=== PATIENT | male | born 1970 | race Caucasian/White ===

== ENCOUNTER 2021-10-03 01:08 | Outpatient (CLI) | payer MEDICAID, SELFPAY ==
--- OUTSIDE RECORDS SUMMARY | 2021-10-03 01:11 | XMS_ITS ---
:1970 Author Care Team Providers Name Role Phone JAM BARBA Primary Care Provider [phone] Allergies Code Code System Name Reaction Severity Status Onset NKDA ? Medications Name Status Start Date Stop Date ? ? Advair Diskus 250 mcg-50 mcg/dose powder for inhalation Complete d 10/11/2010 10/11/2010 one Puff(s): twice daily amoxicillin 500 mg capsule Completed 11/28/200512/08 1 (one) Cap: TID amoxicillin 875 mg-potassium clavulanate 125 mg tablet Completed 04/21/2013 05/01/2013 1 (one) Tablet: two times daily aspirin 325 mg tablet Active 10/01/2021 Not availa ble Take 325 mg every 24 hours by oral route. atorvastatin 40 mg tablet Active 10/01/2021 Not av ailable Take 40 mg by oral route. Auralgan 5.5 %-1.4 % ear drops Completed 02/17/2013 0 02/17/2013 1 application(s): every 2 hours filling affected ear canal as n eeded benzonatate 200 mg capsule Completed 02/17/201304/21 1 Capsule: tid - three times a day prn bumetanide 0.5 mg tablet Active 10/01/2021 Not [place]akot[place] ilable Take 1 mg every 24 hours by oral route. cyclobenzaprine 10 mg tablet Completed ? 12/2020 Take 1 tablet 3 times a day by oral route. erythromycin 5 mg/gram (0.5 %) eye ointment Completed 05/0305/31/2011 1 (one) cm ribbon: 2-3 times daily Flonase 50 mcg/actuation nasal spray,suspension Completed 02/17/2013 04/21/2013 2 (two) Jefferson(s): see comments Guaifenesin AC 10 mg-100 mg/5 mL oral liquid Completed 12/17/2011 5-10 ml Syrup: every 4 to 6 hours as needed for cough ibuprofen 200 mg tablet Completed ? 10/01/20 21 Take 4 tablets every day by oral route as needed. ibuprofen 800 mg tablet Completed ? 09/04/20 21 Take 1 tablet 3 times a day by oral route for 7 days. Klor-Con M20 mEq tablet,extended release Active 021 Not available Take 20 milliequivalents twice a day by oral route. 20 mEq tab lisinopril 20 mg tablet Completed 05/27/2016 10/16/20 16 1 (one) Tablet Tablet: daily Lopressor 50 mg tablet Active 10/01/2021 Not avail able Take 25 mg twice a day by oral route. Nexium 20 mg capsule,delayed release Active 10/01/2021 Not available 1 capsule every day by oral route. prednisone 20 mg tablet Completed 04/15/2011 04/23/20 11 2 Tablet: As directed Prevacid 30 mg capsule,delayed release Completed 8 06/19/2008 1 (one) Capsule DR: DAILY Prilosec 40 mg capsule,delayed release Completed 6 07/02/2006 1 (one) Capsule DR: daily Protonix 40 mg tablet,delayed release Completed 05/25/2006 05/25/2006 1 (one) Tablet DR: daily Tylenol 500 mg tablet Active 10/01/2021 Not availa ble Take 2 tablets every day by oral route as needed. Xopenex HFA 45 mcg/actuation aerosol inhaler Completed 10/200601/04/2007 2 (two) breath: every 4-6 hours as needed Zestril 5 mg tablet Active 10/01/2021 Not availabl e Take 5 mg every 24 hours by oral route. Zetia 10 mg tablet Completed 04/15/2011 04/15/2011 Zithromax TRI-ELPIDIO 500 mg Completed 10/13/2006 006 tablet Zithromax Z-Elpidio 250 mg tablet Completed 10/28/2011 as directed Tablet: daily Notes: ed Rec Updated 09/27/2021 -laf, talked to [facility]-no meds Problems Name Status Onset Date Source ? Mixed Hyperlipidemia Active ? History Hyperlipidemia Active ? History Obesity Active ? History Nicotine Dependence Active ? History Obstructive Sleep Apnea Syndrome Active ? History Impacted Cerumen Active ? History Purulent Otitis Media Active ? History Hypertensive Disorder Active ? History Pharyngitis Active ? History Allergic Rhinitis Active ? History Disorder of Upper Respiratory System Active ? History Disorder of Nail Active ? History Epidermoid Cyst Active ? History Impaired Fasting Glycemia Active ? Histor y Mantoux: Positive Active ? History Sprain of Deltoid Ligament of Ankle Active ? History Superficial Injury of Conjunctiva Active ? History Adult Health Examination Active ? History Ophthalmic Examination and Evaluation Active ? History Screening for Cardiovascular System Disease Active ? History Acute Bronchitis Active ? History Procedure by Method Active ? History Influenza with Respiratory Manifestation Other Active ? History than Pneumonia Finding of Esophagus Active ? History Procedures Date Name Performed by ? 10/01/2021 US, Echocardiogram, Transthoracic, W/ No rth [facility] (Internal) Stress [address] [place] [address] (Work Place) 10/01/2021 Exercise Stress Test [facility] Rad[facility] (Internal) [address] [place] [address] (Work Place) 10/01/2021 Pharmacologic Stress Test Xray [facility] [address] [facility], [place] [address] (Work Place) Results Lab Results Date Name Specimen Result Interpretation Description Value Range Status Address ? 09/30/2021 CBC W/ Auto BLD ? Wbc 8.2 5.0-10.0 Final [place] Diff 10*3/uL 10*3/uL [facility] L ab (Internal) : [address] ? ? BLD ? Rbc 5.33 4.60-6.00 Final [place] 10*6/uL 10*6/uL [facility] (Internal) : [address] ? ? BLD ? Hgb 17.6 14.0-18.0 Final [place] g/dL g/dL [facility] (Internal) : [address] ? ? BLD High Hct 53.2 % 41.0-51.0 Final [place] % [facility] (Internal) : [address] ? ? BLD High Mcv 99.8 fL 80.0-96.0 Final [facility] L [facility] (Internal) : [address] ? ? BLD High Mch 33.0 pg 26.0-32.0 Final [facility] (Internal) : [address] [place] ? ? BLD ? Mchc 33.1 31.0-35.0 Final [place] g/dL g/dL [facility] (Internal) : [address] , [place] ? ? BLD ? Rdw 13.8 % 11.5-14.5 Final [facility] (Internal) : [address] [place] ? ? BLD ? Plt 174 130-450 Final [place] 10*3/uL 10*3/uL [facility] (Internal) : [address] [place] ? ? BLD ? Anc 5.95 ? Final [place] 10*3/uL [facility] (Internal) : [address] [place] ? ? BLD High Nlr 3.91 0.00-3.20 Final [facility] L ab (Internal) : [address] ? ? BLD ? Neutro 72.3 % 40.0-75.0 Final [facility] (Internal) : [address] [place] ? ? BLD Low Lymph 18.4 % 20.0-50.0 Final [facility] (Internal) : [address] [place] ? ? BLD ? [place] 7.6 % 2.0-10.0 Final [facility] (Internal) : [address] [place] ? ? BLD ? Eos 1.0 % 1.0-6.0 % Final [facility] (Internal) : [address] [place] ? ? BLD ? Baso 0.2 % 0.0-1.0 % Final [facility] (Internal) : [address] [place] ? ? BLD ? Ig 0.5 % 0.0-0.9 % Final [facility] (Internal) : [address] 09/30/2021 Cbc BLD ? Wbc 8.2 5.0-10.0 Final Nort h 10*3/uL 10*3/uL [facility] (Internal) : [address] ? ? BLD ? Rbc 5.33 4.60-6.00 Final [place] 10*6/uL 10*6/uL [facility] (Internal) : [address] ? ? BLD ? Hgb 17.6 14.0-18.0 Final [place] g/dL g/dL [facility] (Internal) : [address] ? ? BLD High Hct 53.2 % 41.0-51.0 Final [facility] (Internal) : [address] ? ? BLD High Mcv 99.8 fL 80.0-96.0 Final [place] fL [facility] (Internal) : [address] ? ? BLD High Mch 33.0 pg 26.0-32.0 Final [place] pg [facility] (Internal) : [address] ? ? BLD ? Mchc 33.1 31.0-35.0 Final [place] g/dL g/dL [facility] (Internal) : [address] ? ? BLD ? Rdw 13.8 % 11.5-14.5 Final [facility] (Internal) : [address] ? ? BLD ? Plt 174 130-450 Final [place] 10*3/uL 10*3/uL [facility] (Internal) : [address] ? ? BLD ? Anc 5.95 ? Final [place] 10*3/uL [facility] (Internal) : [address] 09/30/2021 BNP (B-type S High Nt-bnp 174 0-125 Final [place] Natriuretic pg/mL pg/mL Count ry Peptide), Hospita l Lab Prohormone (Inter nal): N-terminal, [address] [place] Immunoassay, Blood 09/30/2021 Magnesium, S Low mg 1.7 1.8-2.4 Final N orth QN, Serum or mg/dL mg/dL Coun [facility] (Internal) : [address] 09/30/2021 BMP, Serum or S High g/r 117 74-106 Final [place] Plasma mg/dL mg/dL [facility] (Internal) : [address] ? ? S ? Bun 12 mg/dL 7-18 Final [place] mg/dL [facility] (Internal) : [address] t ? ? S Low Crea 0.6 0.7-1.3 Final [place] mg/dL mg/dL [facility] (Internal) : [address] t ? ? S ? Ca 9.3 8.5-10.1 Final [place] mg/dL mg/dL [facility] (Internal) : [address] t ? ? S ? Na 139 136-145 Final [place] mmol/L mmol/L [facility] (Internal) : [address] t ? ? S ? K 3.6 3.5-5.1 Final [place] mmol/L mmol/L [facility] (Internal) : [address] t ? ? S Low Cl 93 98-107 Final [place] mmol/l mmol/l [facility] (Internal) : [address] t ? ? S High Tco2 36.7 21.0-32.0 Final [place] mmol/L mmol/L [facility] (Internal) : [address] 09/30/2021 Troponin I, S CRITICAL Trop 124.82 0.00-60.4 Fin al [place] Serum or HIGH pg/mL 0 pg/mL [facility] L [facility] (Internal) : [address] 09/29/2021 Cbc BLD ? Wbc 8.9 5.0-10.0 Final Nort h 10*3/uL 10*3/uL [facility] (Internal) : [address] t ? ? BLD ? Rbc 4.96 4.60-6.00 Final [place] 10*6/uL 10*6/uL [facility] (Internal) : [address] ? ? BLD ? Hgb 16.5 14.0-18.0 Final [place] g/dL g/dL [facility] (Internal) : [address] ? ? BLD ? Hct 50.4 % 41.0-51.0 Final [place] % [facility] (Internal) : [address] t ? ? BLD High Mcv 101.6 fL 80.0-96.0 Final [place] fL [facility] (Internal) : [address] t ? ? BLD High Mch 33.3 pg 26.0-32.0 Final [place] pg [facility] (Internal) : [address] ? ? BLD ? Mchc 32.7 31.0-35.0 Final [place] g/dL g/dL [facility] (Internal) : [address] t ? ? BLD ? Rdw 14.2 % 11.5-14.5 Final [place] % [facility] (Internal) : [address] t ? ? BLD ? Plt 175 130-450 Final [place] 10*3/uL 10*3/uL [facility] (Internal) : [address] ? ? BLD ? Anc 6.70 ? Final [place] 10*3/uL [facility] (Internal) : [address] 09/29/2021 Magnesium, S ? mg 1.8 1.8-2.4 Final N orth QN, Serum or mg/dL mg/dL [facility] (Internal) : [address] 09/29/2021 BNP (B-type S High Nt-bnp 441 0-125 Final [place] Natriuretic pg/mL pg/mL Count ry Peptide), Hospita l Lab Prohormone (Inter nal): N-terminal, [address], [place] Immunoassay, Blood 09/29/2021 BMP, Serum or S ? g/r 104 74-106 Final [place] Plasma mg/dL mg/dL [facility] (Internal) : [address] t ? ? S ? Bun 10 mg/dL 7-18 Final [place] mg/dL [facility] (Internal) : [address] t ? ? S ? Crea 0.7 0.7-1.3 Final [place] mg/dL mg/dL [facility] (Internal) : [address] t ? ? S ? Ca 9.1 8.5-10.1 Final [place] mg/dL mg/dL [facility] (Internal) : [address] t ? ? S ? Na 142 136-145 Final [place] mmol/L mmol/L [facility] (Internal) : [address] t ? ? S Low K 2.9 3.5-5.1 Final [place] mmol/L mmol/L [facility] (Internal) : [address] t ? ? S Low Cl 94 98-107 Final [place] mmol/l mmol/l [facility] (Internal) : [address] t ? ? S CRITICAL Tco2 42.9 21.0-32.0 Final [place] HIGH mmol/L mmol/L [facility] (Internal) : [address] 09/28/2021 Troponin I, S CRITICAL Trop 323.88 0.00-60.4 Fin al [place] Serum or HIGH pg/mL 0 pg/mL [facility] (Internal) : [address] 09/28/2021 Cbc BLD ? Wbc 9.5 5.0-10.0 Final Nort h 10*3/uL 10*3/uL [facility] (Internal) : [address] ? ? BLD ? Rbc 4.76 4.60-6.00 Final [place] 10*6/uL 10*6/uL [facility] (Internal) : [address] ? ? BLD ? Hgb 15.8 14.0-18.0 Final [place] g/dL g/dL [facility] (Internal) : [address] ? ? BLD ? Hct 49.1 % 41.0-51.0 Final [place] % [facility] (Internal) : [address] ? ? BLD High Mcv 103.2 fL 80.0-96.0 Final [place] fL [facility] (Internal) : [address] ? ? BLD High Mch 33.2 pg 26.0-32.0 Final [place] pg [facility] (Internal) : [address] ? ? BLD ? Mchc 32.2 31.0-35.0 Final [place] g/dL g/dL [facility] (Internal) : [address], [place] ? ? BLD ? Rdw 14.4 % 11.5-14.5 Final [place] % [facility] (Internal) : [address] t ? ? BLD ? Plt 163 130-450 Final [place] 10*3/uL 10*3/uL [facility] (Internal) : [address] ? ? BLD ? Anc 7.30 ? Final [place] 10*3/uL [facility] (Internal) : [address] 09/28/2021 BNP (B-type S High Nt-bnp 1245 0-125 Final [place] Natriuretic pg/mL pg/mL Count ry Peptide), Hospita l Lab Prohormone (Inter nal): N-terminal, [address], [place] Immunoassay, Blood 09/28/2021 Magnesium, S Low mg 1.5 1.8-2.4 Final N orth QN, Serum or mg/dL mg/dL [facility] L [facility] (Internal) : [address] 09/28/2021 HbA1C BLD ? Ha1C 5.6 % 4.0-6.0 % Final Nor th (Hemoglobin Count ry a1C), Blood [facility] Lab (Internal) : [address] 09/28/2021 BMP, Serum or S ? g/r 103 74-106 Final [place] Plasma mg/dL mg/dL [facility] (Internal) : [address] t ? ? S ? Bun 10 mg/dL 7-18 Final [place] mg/dL [facility] (Internal) : [address] t ? ? S ? Crea 0.7 0.7-1.3 Final [place] mg/dL mg/dL [facility] (Internal) : [address] t ? ? S ? Ca 8.5 8.5-10.1 Final [place] mg/dL mg/dL [facility] (Internal) : [address] t ? ? S ? Na 144 136-145 Final [place] mmol/L mmol/L [facility] (Internal) : [address] ? ? S Low K 2.8 3.5-5.1 Final [place] mmol/L mmol/L [facility] (Internal) : [address] t ? ? S ? Cl 98 98-107 Final [place] mmol/l mmol/l [facility] L ab (Internal) : [address] t ? ? S High Tco2 39.9 21.0-32.0 Final [place] mmol/L mmol/L [facility] L [facility] (Internal) : [address] 09/28/2021 Lipid Panel, S ? Chol 125 0-200 Final [place] Serum mg/dL mg/dL [facility] (Internal) : [address] t ? ? S ? Trig 87 mg/dL 0-150 Final [place] mg/dL [facility] (Internal) : [address] ? ? S Low Hdl 32 mg/dL 40-60 Final [place] mg/dL [facility] (Internal) : [address] t ? ? S ? Ldl 76 mg/dL 0-130 Final [place] mg/dL [facility] (Internal) : [address] 09/27/2021 Magnesium, S ? mg 1.9 1.8-2.4 Final N orth QN, Serum or mg/dL mg/dL [facility] : [address] [facility]21 Troponin I, S CRITICAL Trop 403.41 0.00-60.4 Fin al [place] Serum or HIGH pg/mL 0 pg/mL [facility] L [facility] (Internal) : [address] 09/27/2021 EKG Done by ? No ? ? ? N orth ED observation Count ry recorded. Hospita l Lab (Internal) : [address] 09/29/2017 Venipuncture BLD ? Venpn* ? ? Final [facility] ab (Internal) : [address] 09/29/2017 CMP, Serum or S High g/r 125 74-106 Final [place] Plasma mg/dL mg/dL [facility] (Internal) : [address] ? ? S ? Bun 11 mg/dL 9-20 Final [place] mg/dL [facility] (Internal) : [address] ? ? S ? Crea 0.80 0.66-1.25 Final [place] mg/dL mg/dL [facility] (Internal) : [address] t ? ? S ? Ca 9.4 8.4-10.2 Final [place] mg/dL mg/dL [facility] (Internal) : [address] t ? ? S ? Na 139 137-145 Final [place] mmol/L mmol/L [facility] (Internal) : [address] t ? ? S ? K 3.6 3.5-5.1 Final [place] mmol/L mmol/L [facility] (Internal) : [address] t ? ? S ? Cl 100 98-107 Final [place] mmol/L mmol/L [facility] (Internal) : [address] t ? ? S ? Tco2 28.0 22.0-30.0 Final [place] mmol/L mmol/L [facility] (Internal) : [address] t ? ? S ? Tp 7.5 g/dL 6.3-8.2 Final [place] g/dL [facility] (Internal) : [address] t ? ? S ? Alb 4.2 g/dL 3.5-5.0 Final [place] g/dL [facility] (Internal) : [address] t ? ? S ? Tbil 0.7 0.2-1.3 Final [place] mg/dL mg/dL [facility] (Internal) : [address] t ? ? S ? Alp 102 U/L 50-136 Final [place] U/L [facility] (Internal) : [address] t ? ? S ? Alt (Sgpt) 43 U/L 21-72 U/L Final No rth [facility] (Internal) : [address] t ? ? S ? Ast (Sgot) 29 U/L 17-59 U/L Final No rth [facility] (Internal) : [address] t 09/29/2017 CBC W/ Auto BLD High Wbc 11.8 5.0-10.0 Final [place] Diff 10*3/uL 10*3/uL [facility] (Internal) : [address] ? ? BLD ? Rbc 5.06 4.60-6.00 Final [place] 10*6/uL 10*6/uL [facility] (Internal) : [address] ? ? BLD ? Hgb 15.3 14.0-18.0 Final [place] g/dL g/dL [facility] (Internal) : [address] ? ? BLD ? Hct 46.8 % 41.0-51.0 Final [facility] L ab (Internal) : [address] ? ? BLD ? Mcv 92.5 fL 80.0-96.0 Final [facility] ab (Internal) : [address] ? ? BLD ? Mch 30.2 pg 26.0-32.0 Final [facility] (Internal) : [address] ? ? BLD ? Mchc 32.7 31.0-35.0 Final [place] g/dL g/dL [facility] (Internal) : [address] ? ? BLD ? Rdw 11.8 % 11.5-14.5 Final [facility] (Internal) : [address] ? ? BLD ? Plt 331 130-450 Final [place] 10*3/uL 10*3/uL [facility] (Internal) : [address] ? ? BLD ? Anc 8.92 ? Final [place] 10*3/uL [facility] (Internal) : [address] ? ? BLD High Neutro 75.7 % 40.0-75.0 Final [facility] (Internal) : [address] ? ? BLD Low Lymph 15.5 % 20.0-50.0 Final [facility] L [facility] (Internal) : [address] ? ? BLD ? [place] 7.2 % 2.0-10.0 Final [facility] L ab (Internal) : [address] ? ? BLD Low Eos 0.9 % 1.0-6.0 % Final [facility] (Internal) : [address], [place] ? ? BLD ? Baso 0.3 % 0.0-1.0 % Final [facility] (Internal) : [address] ? ? BLD ? Ig 0.4 % 0.0-0.9 % Final [facility] (Internal) : [address] 09/29/2017 Uric Acid, S ? Urca 6.7 3.5-8.5 Final N orth Serum or mg/dL mg/dL [facility] ab (Internal) : [address] Past Encounters 09/27/2021 Hypoxia; Finding Related to Health Insur ance Issues Mona Ann, GALLEY BOY: [address] [place] [phone], Ph. 09/04/2021 Obesity; Paresthesia of Upper Limb; Pare sthesia of Lower Extremity; Essential Hypertension; Constipation Jam Barba, DO: [address] [place] [phone], Ph. Social History Tobacco Smoking Status Heavy Tobacco Smoker (1/2 pack per Notes: or less day) Vaccine List Vaccine Type influenza, seasonal, injectable 11/02/2015 influenza, seasonal, injectable, preserv ative free 10/11/2010?0.5 mL 08/15/2011?0.5 mL 09/30/2012?0.5 mL 09/01/2013?0.5 mL Tdap 10/11/2010?0.5 mL Notes: had #2 COVID vaccines in Nov. Plan of Care Reminders Provider Appointments None ? ? recorded. Lab None ? ? recorded. Referral None ? ? recorded. Procedures None ? ? recorded. Surgeries None ? ? recorded. Imaging None ? ? recorded. Vitals 09/27/2021 10:40AM Follow Up 20 Weight Blood Pressure 176.9 kg 150/96 mm[Hg] 09/04/2021 01:40PM Acute 20 Weight Blood Pressure 169.19 kg 172/108 mm[Hg] 11/06/2016 Weight Blood Pressure 157 kg 128/76 mm[Hg] 10/16/2016 Weight Blood Pressure 154.67 kg 122/82 mm[Hg] 07/03/2016 Height Weight Blood Pressure 180.34 cm 153.31 kg 130/86 mm[Hg] 04/17/2016 Weight Blood Pressure 157.4 kg 144/102 mm[Hg] 05/03/2015 Height Weight Blood Pressure 180.34 cm 151.5 kg 128/86 mm[Hg] 05/31/2014 Height Weight Blood Pressure 180.34 cm 162.16 kg 126/86 mm[Hg] 04/21/2013 Blood Pressure 128/82 mm[Hg] 02/17/2013 Weight Blood Pressure 157.85 kg 128/82 mm[Hg] 02/04/2013 Weight Blood Pressure 156.04 kg 142/84 mm[Hg] 11/18/2012 Weight Blood Pressure 159.66 kg 140/80 mm[Hg] 03/30/2012 Weight Blood Pressure 150.59 kg 120/70 mm[Hg] 10/28/2011 Weight Blood Pressure 156.04 kg 120/70 mm[Hg] 04/15/2011 Height Weight Blood Pressure 180.34 cm 147.42 kg 120/60 mm[Hg] 10/21/2010 Height Weight Blood Pressure 182.88 cm 157.85 kg 122/70 mm[Hg] 10/11/2010 Height Weight Blood Pressure 182.88 cm 158.3 kg 120/80 mm[Hg] 02/15/2009 Weight Blood Pressure 140.16 kg 116/70 mm[Hg] 02/08/2009 Weight Blood Pressure 140.61 kg 124/76 mm[Hg] 02/01/2009 Weight Blood Pressure 137.44 kg 124/70 mm[Hg] 12/11/2008 Weight Blood Pressure 138.35 kg 134/82 mm[Hg] 06/19/2008 Weight Blood Pressure 129.27 kg 140/84 mm[Hg] 05/31/2007 Weight Blood Pressure 128.82 kg 120/98 mm[Hg] 01/04/2007 Weight Blood Pressure 131.54 kg 108/80 mm[Hg] 11/10/2006 Height Weight Blood Pressure 182.88 cm 134.26 kg 112/80 mm[Hg] 10/13/2006 Weight Blood Pressure 134.72 kg 124/64 mm[Hg] 08/27/2006 Weight Blood Pressure 136.98 kg 118/76 mm[Hg] 07/27/2006 Height Weight Blood Pressure 182.88 cm 136.53 kg 130/84 mm[Hg] 07/02/2006 Weight Blood Pressure 90.49 kg 124/86 mm[Hg] 04/30/2006 Weight Blood Pressure 136.08 kg 130/90 mm[Hg] 04/07/2006 Weight Blood Pressure 136.08 kg 126/80 mm[Hg] 11/28/2005 Weight Blood Pressure 134.26 kg 110/64 mm[Hg] 10/30/2005 Weight Blood Pressure 132.9 kg 122/88 mm[Hg] 07/01/2005 Height Weight Blood Pressure 182.88 cm 130.63 kg 124/80 mm[Hg]
--- OUTSIDE RECORDS SUMMARY | 2021-10-03 01:11 | XMS_ITS | Encounter Summary ---
:1970 Author Care Team Providers Name Role Phone Cedric Robi GRIFFIN Primary Care Provider [phone] Reason for Visit 51 yr. old male here for evaluation of U RI symptoms. COVID negative 09/23 & 09/24/21 Assessment and Plan 1. Hypoxia pt with lowest oxygen of 67% o n room, increased to 92% on 3 L NC, will be transported to [facility] ED by female urban and regional planner, Cathryn, spoke with her and she agrees to drive the vehicle, pt refuses amb ulance transport likely related to cost as pt has no insurance. Simi Ramirez LPN called report to [facility] ED. 2. Finding related to health ins urance issues no insurance Discussion Note: None recorded.Patient educational handouts: No information available. Plan of Care Reminders Provider Appointments Follow up 20 Ro thien Rosenbaum, 10/15/2021 DO 2:40PM ? NUTR Initial Anshu Mireles, RD [address] 10/16/2021 2:00PM Lab None ? ? recorded. Referral None ? ? recorded. Procedures None ? ? recorded. Surgeries None ? ? recorded. Imaging None ? ? recorded. Medications Name Start Date ? ? aspirin 325 mg tablet 10/01/2021 Take 325 mg every 24 hours by oral route. atorvastatin 40 mg tablet 10/01/2021 Take 40 mg by oral route. bumetanide 0.5 mg tablet 10/01/2021 Take 1 mg every 24 hours by oral route. Klor-Con M20 mEq tablet,extended release 10/01/2021 Take 20 milliequivalents twice a day by oral route. 20 mEq tab Lopressor 50 mg tablet 10/01/2021 Take 25 mg twice a day by oral route. Nexium 20 mg capsule,delayed release 10/01/2021 1 capsule every day by oral route. Tylenol 500 mg tablet 10/01/2021 Take 2 tablets every day by oral route as needed. Zestril 5 mg tablet 10/01/2021 Take 5 mg every 24 hours by oral route. Notes: ed Rec Updated 09/27/2021 -laf, talked to [facility]-no meds Medications Administered None recorded. Vitals Weight Blood Pressure 389 lbs 16 oz 150/96 mm[Hg] Results Lab Results None recorded. Allergies Code Code System Name Reaction Severity Onset NKDA ? ? ? Problems Name Status Onset Date Source ? [...] Finding of Esophagus Active ? History Procedures None recorded. Vaccine List Vaccine Type influenza, seasonal, injectable 11/02/2015 influenza, seasonal, injectable, preserv ative free 10/11/2010?0.5 mL 08/15/2011?0.5 mL 09/30/2012?0.5 mL 09/01/2013?0.5 mL Tdap 10/11/2010?0.5 mL Notes: had #2 COVID vaccines in Nov. Social History Tobacco Smoking Status Heavy Tobacco Smoker (1/2 Notes: or less pack per day) Have you been exposed to N chemicals or toxins? Do you have difficulty walking N or climbing stairs? Are you able to walk? YESWOREST Are you able to care for Y yourself? What is your code status? 0 Have you been exposed to heavy N metals? How much tobacco do you chew? none What is your level of alcohol Heavy Notes: 5th of rum a day consumption? Did the fall result in an N injury? Do you have any pets? Y Are you deaf or do you have N serious difficulty hearing? Are you passively exposed to Y smoke? Do you or have you ever used N any other forms of tobacco or nicotine? Are there any guns present in Y your home? Do you have difficulty dressing N or bathing? Any signs of neglect or abuse? no signs of neglect or abuse noted Has tobacco cessation Notes: pt does not want counseling been provided? information to quit smoking Are you blind or do you have N difficulty seeing? Have you used IV drugs? N Do you have transportation Y difficulties? Do you have smoke and carbon Y monoxide detectors in your home? Do you have difficulty doing N errands alone? What was the date of your most 09/27/2021 recent tobacco screening? Do you use sunscreen routinely? N Do you have an advanced N directive? Do you feel safe at home? Y Do you use any illicit or N Notes: saad antonio recreational drugs? Have there been any changes to N your family or social situation? Which of your hands is Right dominant? Do you use insect repellent N routinely? Do you have difficulty N concentrating, remembering or making decisions? Are there any smokers in your Y house? Have you fallen in the last 3 N months? Functional Status No Impairment. Past Encounters 09/27/2021 Hypoxia; Finding Related to Health Insur ance Issues Mona Ann, [facility] IN CHARGE: [address] [place] [address], Ph. 09/04/2021 Obesity; Paresthesia of Upper Limb; Pare sthesia of Lower Extremity; Essential Hypertension; Constipation Cedric Rosenbaum, DO: [address] [facility], [place] [address], Ph. History of Present Illness ? Upper Respiratory Symptoms Reported By: Patient Upper Respiratory Symptoms: Context: no foreign travel , smoker. Modifying Factors: OTC medication. Associated S ymptoms: no vomiting, no nausea Notes: <div>Pt with cough & SOB x 5 days, no fever, reports brain fog & hazy vision,ta king Cindyil</div><div>
</div>< div>does smoke cigarettes, no hx of COPD, asthma, HTN or h eart failure but has not been in care for several years, r ecently re-established 3 weeks ago.</div><div>
</d iv><div>ROS denies fevers, chest pain, headache, dizzin ess, numbness, weakness; reports cough, SOB, LE edema</div><div>
</div ><div>17 lb weight gain in 3 weeks</div><div>
</div ><div>tested COVID negative at [facility] on 09/23 & by PCR</div><div>
</div><div >nurse notes: Pt. developed a cough, productive of yellow sputum on 09/23/21. He initially had a sore throat, though no longer. He has a loose cough with audible whe ezing at rest & with activity. Chest feels tight. O2 sat. is ranging 78-88% on room air. He has had a heada angélica. Afebrile. Ribs hurt from coughing, though denies body aches. Upper left eyelid is swollen. Eyes tearing, but n o yellow/white drainage. He also states he has a visual fog upon getting up the last 2 mornings for < 30 min.</di v> Review of Systems: ROS as noted in the HPI Review of Systems None recorded. Physical Exam ? Brief PE Reported By: Patient General: General Appearance: healthy- appearing, well-nourished, well-developed. Level of Dis tress: NAD Cardiovascular: Heart Auscultation: RRR, nor mal S1, normal S2, no murmurs, no rubs, no gallops. Pulses: normal t hroughout. Extremities: edema Lungs: Auscultation: no wheezing; n ot coughing, speaking in complete sentences, LLL with crackles & rales, RLL with decreased breath sounds Skin: Inspection and palpation: wa rm and dry, no lesions, good turgor Psychiatric: Affect appropriate; calm, co operative
--- OUTSIDE RECORDS SUMMARY | 2021-10-03 01:11 | XMS_ITS | Encounter Summary ---
:1970 Author Care Team Providers Name Role Phone Cedric Robi GRIFFIN Primary Care Provider [phone] Reason for Visit Obesity; blood pressure; constipation Assessment and Plan 1. Obesity Patient is extremely overweigh t. He states he only eats 1 meal a day but then admits to having 6-7 alcoholic beve rages a day. This is a source of his caloric intake. Also the source of his obesity. 2. Paresthesia of upper limb Paresthesias of the upper limb are most likely due to his alcohol consumption. I do not think there is any need for further testing at this point. He needs to curtail his alcohol intake in f act I would say he needs to stop them immediately 3. Paresthesia of lower extremit y Same as above. Most likely his paresthesias are due to chronic alcoholism. 4. Essential hypertension Elevated blood pressures due t o his obesity. He should obtain a blood pressure cuff and check it at home to be sure as on recheck today it was actually within normal limits albeit on the upper end of normal limits 5. Constipation Patient with a question of con stipation. He has diarrhea and then very firm stool. I believe is most likely constipa oliver and his diarrhea is liquid coming around this firm stool. I suggest MiraLAX or mi lk of mag [id number]. Should try this at a relatively low dose and gingerly bu t then advance it as tolerated. If this does not relieve the situation within 2 to 3 weeks he should return. He certainly return sooner if needed. Discussion Note: None recorded.Patient educational handouts: No [...] oral route. Notes: ed Rec Updated 09/27/2021 -[facility], talked to [facility]-no meds Medications Administered None recorded. Vitals Weight Blood Pressure 372 lbs 16 oz 172/108 mm[Hg] Results Lab Results None recorded. Allergies [...] How much tobacco do you chew? none Did the fall result in an N injury? What is your level of alcohol Heavy Notes: 5th of rum a day consumption? Do you have any pets? Y Are [...] counseling been provided? information to quit smoking Have you used IV drugs? N Are you blind or do you have N difficulty seeing? Do you have smoke and carbon Y monoxide detectors in your home? Do you have transportation Y difficulties? Do you have difficulty doing N errands alone? Do you use sunscreen routinely? N What was the date of your most 09/27/2021 recent tobacco screening? Do you have an advanced N directive? [...] months? Functional Status No Impairment. Past Encounters 09/04/2021 Obesity; Paresthesia of Upper Limb; Pare sthesia of Lower Extremity; Essential Hypertension; Constipation Cedric Rosenbaum, DO: [address] [facility], [place] [address], Ph. History of Present Illness ? Constipation Reported By: Patient HPI: Quality: worsening, hard, sm all amount. Duration: present 1-4 years. Context no recent opiates, n o recent surgery, normal toileting ability, no history of IBS. Associate d Symptoms: cramping ? Hypertension F/U Reported By: Patient HPI: Medications: not taking medi cations as directed. Lifestyle: not exercising regularly, high s alt intake, noncompliant with low salt diet. Associated Symptoms: no dizz iness, no chest pain, no palpitations, no headache, shortness of breat h ? Overweight/Obese Reported By: Patient HPI: Duration: years. Context: e xcessive caloric intake, hx of tobacco smoking, heavy alcohol consu mption. Associated Symptoms: no headache, constipation Notes: <div>373 pounds in office he re today.</div> Review of Systems: ROS as noted in the HPI Review of Systems None recorded. Physical Exam ? Comprehensive PE (male) Reported By: Patient Constitutional: General Appearance: healthy- appearing, well-developed, morbidly obese. Level of Distress: no apparent distress. Ambulation: ambulating normally Respiratory: Respiratory effort: unlabore d respirations, no use of accessory muscles. RUL Auscultation: b reath sounds normal, good air movement, clear to auscultation except as noted, no wheezing, no rales/crackles, no rhonchi. RLL Auscultation: breath sounds normal, good air movement, clear to auscultation except as noted, no wheezing, no rales/crackles, no rhonchi. DAVIDSON Auscultation: breath sounds normal, good air move ment, clear to auscultation except as noted, no wheezing, no rales /crackles, no rhonchi. LLL Auscultation: breath sounds normal, good a ir movement, clear to auscultation except as noted, no wheezing, no ra les/crackles, no rhonchi Cardiovascular: Apical Impulse: not displace d. Heart Auscultation: regular rate and rhythm (RRR), normal S1, nor mal S2, no murmurs, no rubs, no gallops. Neck vessels: no carotid bru its. Pulses including femoral / pedal: normal throughout Neurologic: Orientation: oriented to per son, place, time and situation. Memory: recent memory normal, remote memory normal. Sensation: abnormal; Decreased sensation of bilat eral hands and feet. He still has feeling that there is a dull ness to it according to him Psychiatric: Insight: good insight, good judgment. Mental Status: normal mood, normal affect
--- NOTE | 2021-10-03 12:00 | DI.NM_ITS ---
APPROVED REPORT Exam: Pharmacologic paired w/ low level exercise Patient Location: Out-Patient Room/Bed: Stress Nurse: Lois Marinelli RN Ordering Provider:RORY NEGRO MD Contact Number: BMI: 50.48 Baseline Rhythm: Sinus Rhythm Indications: CHEST PAIN. Medical History Medical History: HTN, Recent VA, Tobacco abuse, Obesity Cardiac Medications: Aspirin, Atorvastatin, Bumetainide, Klor Con, Lopressor, Nexium, Lisinopril Allergies: No known drug allergies Cardiac Risk Factors: HTN, Smoking (35 year hx), , FHX of CAD, CVD, Obesity Previous Cardiac Procedures: None Pretest Chest Pain Characteristics: No chest pain Exercise History: Sedentary Physical Disabilities: Legs Lung Sounds: Clear to auscultation Heart Sounds: Regular Stress Test Details Test: Pharmacologic stress was paired with low level exercise. Reason for pharmacologic stress test: physical limitation. Nuclear Acquisition: Rest Tc-99m/Stress Tc-99m 1 day Rest Isotope: Tc-99m Sestamibi. Dose: 12.0 Date: 10/03/2021 Injection Time: 1210 Stress Isotope: Tc-99m Sestamibi. Dose: 38.0 Date: 10/03/2021 Injection Time: 1407 HR Resting HR Supine: 77 bpm Max Heart Rate (APMHR): 171.201227 bpm Resting HR Standin bpm Target HR (85% APMHR): 145.731845 bpm Max HR Achieved: 105 bpm % of APMHR: 61.40 Recovery HR: 85 bpm BP Resting BP Supine: 120/88 mmHg Resting BP Standin/78 mmHg Max BP: 152/82 mmHg Recovery BP: 142/78 mmHg ECG Resting ECG: Sinus Rhythm Stress ECG: Sinus Tachycardia ST Change: No significant ST segment changes noted Arrhythmia: None Recovery ECG: Sinus Rhythm Recovery ST Change: No significant ST segment changes noted Recovery Arrhythmia: None Clinical Stress Symptoms: Dyspnea Rate Pressure Product: [id number] Stress ECG Conclusion 1. The resting electrocardiogram was within normal limits 2. The patient underwent pharmacologic stress with regadenoson 3. Peak heart rate achieved was 61% of predicted for age 4. Electrocardiographically the test was nondiagnostic due to inadequate heart rate 5. There were no significant dysrhythmias Stress Test Summary STAGE HR BP Symptoms NOTES Supine 77 120/88 1 min post Lexiscan injection 103 128/90 SpO2 87% mild SOB 3 min post Lexiscan injection 91 152/82 SpO2 91% mild SOB 6 min post Lexiscan injection 85 142/78 SpO2 94% Standing 86 122/78 Lexiscan injection paired w/ low level exercise. Patient ambulated at 1.5 mph/0% grade. Patient repor oliver mild SOB with lexiscan injection which resolved within minutes. MPI Conclusion Normal myocardial perfusion. No evidence of ischemia or prior infarction. EF is 55% Radiologist Interpretation Radiologist Interpretation by: Cedric Ward MD Interpretation Date/Time: 10/04/2021 13:14:07
[2021-10-03] MEDS: Regadenoson 0.4 MG/5 ML SYR IVP (13:49)
== END 2021-10-03 01:28 ==
PROVIDERS: Visit Provider Internal Medicine Interventional Cardiology
DX: R07.9 Chest pain, unspecified (principal); I10 Essential (primary) hypertension; R94.39 Abnormal result of other cardiovascular function study; Z87.891 Personal history of nicotine dependence; Z82.49 Family history of ischemic heart disease and other diseases of the circulatory system; I25.10 Atherosclerotic heart disease of native coronary artery without angina pectoris; E66.9 Obesity, unspecified; Z68.43 Body mass index [BMI] 50.0-59.9, adult
CPT/HCPCS: 78452; 93017; J2785

== ENCOUNTER → 2023-07-09 02:54 | Outpatient (CLI) | payer MEDICAID, SELFPAY ==
--- NOTE | 2023-07-09 08:15 | DI.RAD_ITS ---
Exam(s) XR ANKLE LT COMPLETE EXAM: XR ANKLE LT COMPLETE CLINICAL HISTORY: Pain in left ankle,m25.572. TECHNIQUE: 2D digital imaging was performed. COMPARISON: No exams were available for comparison FINDINGS: 3 views No evidence of acute fracture nor widening of the ankle mortise. Talar dome unremarkable. No osseou s lesions nor erosions. No radiopaque foreign body. No obvious degenerative changes. Bone density normal. Os trigonum noted. IMPRESSION: As above. DATA REPOSITORY: RADIATION DOSE DELIVERED:
--- NOTE | 2023-07-09 08:15 | DI.RAD_ITS ---
Exam(s) XR ANKLE RT COMPLETE EXAM: XR ANKLE RT COMPLETE CLINICAL HISTORY: Right ankle pain,m25.571. TECHNIQUE: 2D digital imaging was performed. COMPARISON: CR XR ANKLE LT COMPLETE from 07/09/2023 FINDINGS: 3 views No evidence of acute fracture or widening of the ankle mortise. Mild lucency in the mid aspect talar dome noted which may be degenerative subarticular cysts. Otherwise tibiotalar joint appears unremar kable as does the subtalar joint. There is no osseous tarsal coalition. Enthesophyte noted at the A chilles insertion on the posterior calcaneus IMPRESSION: Subtle talar dome findings as above. DATA REPOSITORY: RADIATION DOSE DELIVERED:
--- NOTE | 2023-07-09 08:15 | DI.RAD_ITS ---
Exam(s) XR FOOT RT COMPLETE EXAM: XR FOOT RT COMPLETE CLINICAL HISTORY: pain,posterior tibial tendon dysfunction,m76.821. TECHNIQUE: 2D digital imaging was performed. COMPARISON: CR XR FOOT LT COMPLETE from 07/09/2023 FINDINGS: 3 views No evidence of fracture or diastasis of Lisfranc joint. Bipartite medial sesamoid bone noted subjace nt to the great toe metatarsal head. Other bones of the foot appear unremarkable. No pes planus. Moderate degenerative changes in the great toe metatarsophalangeal joint IMPRESSION: Moderate degenerative changes at the great toe metatarsophalangeal joint. DATA REPOSITORY: RADIATION DOSE DELIVERED:
--- NOTE | 2023-07-09 08:15 | DI.RAD_ITS ---
Exam(s) XR FOOT LT COMPLETE EXAM: XR FOOT LT COMPLETE CLINICAL HISTORY: pain,posterior tibial tendon dysfunction,m76.822. TECHNIQUE: 2D digital imaging was performed. COMPARISON: No exams were available for comparison FINDINGS: 3 views No evidence of acute fracture nor diastasis of the Lisfranc joint. There are moderate degenerative c hanges in the metatarsophalangeal joint of the great toe No osseous lesions nor erosions evident. No pes planus. Tiny inferior calcaneal spur noted. IMPRESSION: Moderate degenerative changes evident in the great toe MTP joint DATA REPOSITORY: RADIATION DOSE DELIVERED:
== END ==
PROVIDERS: PCP Neuromusculoskeletal Medicine & OMM; Visit Provider Podiatrist
DX: M19.072 Primary osteoarthritis, left ankle and foot; M19.071 Primary osteoarthritis, right ankle and foot
CPT/HCPCS: 73610; 73630

== ENCOUNTER 2024-04-26 11:06 | Emergency (ER) | payer MEDICAID, SELFPAY ==
[2024-04-26] VITALS (36 sets, daily range): BP systolic 86–143; BP diastolic 51–82; PULSE 88–111; RESP 16–18; TEMP 36.2; O2SAT 87–100
[2024-04-26 12:31] LABS: Lactate 0.8 mmol/L (0.6-1.4)
[2024-04-26 12:32] LABS: Abs Immature Grans 0.05 10^3/uL (0.0-0.06); Absolute Basophil Count 0.01 10^3/uL (0.0-0.2); Absolute Eosinophil Count 0.07 10^3/uL (0.0-0.7); Absolute Lymphocyte Count 0.39 10^3/uL (1.2-3.4); Absolute Monocyte Count 0.03 10^3/uL (0.1-0.8); Absolute Neutrophil Count 6.67 10^3/uL (1.2-6.7); Basophils % 0.1 %; HCT 37.2 % (40.0-50.0); Immature Grans % 0.7 %; Lymphocytes % 5.4 %; MCH 28.7 pg (27.0-33.0); MCHC 32.3 % (32.0-36.0); MCV 89 fL (80-95); MPV 8.8 fL (8.0-11.0); Monocytes % 0.4 %; Neutrophils % 92.4 %; Platelet Count 201 10^3/uL (130-400); RBC 4.18 10^6/uL (4.36-5.78); RDW 12.5 % (11.8-14.1); RDW-SD 41.1 fL; WBC 7.22 10^3/uL (4.4-10.8)
[2024-04-26 12:47] LABS: Diff Comment Agrees w/ Instrument; RBC Morphology Normal
[2024-04-26] MEDS: Metoclopramide 10 MG/2 ML VIAL IVP (12:49)
[2024-04-26] MEDS: Normal Saline 1,000 ML 1000 ML IV (12:49)
[2024-04-26 12:50] LABS: ALT 26 U/L (16-63); AST 22 U/L (15-37); Albumin 2.8 g/dL (3.4-5.0); Alkaline Phosphatase 138 U/L (46-116); Anion Gap 7.2 mmol/L (3-11); BUN 10 mg/dL (7-18); CO2 30.8 mmol/L (21.0-32.0); CREATININE 0.7 mg/dL (0.70-1.30); Calcium 9.2 mg/dL (8.5-10.1); Chloride 98 mmol/L (98-107); Estimated GFR 110.87 (mL/min/1.73m2); Glucose 100 mg/dL (74-106); Lipase 100 U/L (16-77); Magnesium 1.8 mg/dL (1.8-2.4); Potassium 3.9 mmol/L (3.5-5.1); Sodium 136 mmol/L (136-145); Total Protein 7.3 g/dL (6.4-8.2)
[2024-04-26] MEDS: Normal Saline 50 ML (12:51)
--- NOTE | 2024-04-26 13:39 | ED.GENADUL_ITS ---
Discharge Plan Disposition Patient Disposition: Transfer-Acute Inpatient Care Specific Acute Inpt Facility: [facility] Condition: Stable Discharge Details Chief Complaint: Abd Prob Clinical Impression: Pancreatic cancer, Rash, Abdominal pain Primary Care Provider: Cedric Rosenbaum ED Provider: New Jaime Home Meds and New Rx's Prescriptions: No Action magnesium oxide 400 mg magnesium capsule 400 mg PO BID Hold Instructions: Changed by Provider famotidine 20 mg tablet 20 mg PO BID Hold Instructions: Changed by Provider esomeprazole magnesium 40 mg capsule,delayed release(DR/EC) 40 mg PO BID Hold Instructions: Changed by Provider carvedilol 3.125 mg tablet 3.125 mg PO BID Rx Instructions: must administer with a meal/food aspirin [Adult Low Dose Aspirin] 81 mg tablet,delayed release (DR/EC) 81 mg PO DAILY Hold Instructions: Pt Stopped/Never Started atorvastatin 40 mg tablet 40 mg PO DAILY Hold Instructions: Changed by Provider acetaminophen 500 mg tablet 500 mg PO QID PRN potassium chloride 20 mEq tablet extended release 40 meq PO BID meloxicam 7.5 mg tablet See Rx Instructions PO DAILY Hold Instructions: Changed by Provider Rx Instructions: dose unverified; orally daily; torsemide 20 mg tablet 20 mg PO DAILY Hold Instructions: Changed by Provider aspirin [Adult Low Dose Aspirin] 81 mg tablet,delayed release (DR/EC) 81 mg PO DAILY Hold Instructions: Pt Stopped/Never Started bumetanide 1 mg tablet 1 mg PO DAILY Hold Instructions: Changed by Provider colchicine 0.6 mg tablet 0.6 mg PO DAILY gabapentin 400 mg capsule 400 mg PO TID Hold Instructions: Changed by Provider naproxen 500 mg tablet 500 mg PO BID Hold Instructions: Changed by Provider pantoprazole 40 mg tablet,delayed release (DR/EC) 40 mg PO ONCE Patient Comments: TAKE ONE TABLET BY MOUTH EVERY DAY docusate sodium 100 mg capsule PO Patient Comments: TAKE ONE CAPSULE BY MOUTH TWICE A DAY NEEDED FOR CONSTIPATION ondansetron 4 mg tablet,disintegrating 4 mg PO PRN Patient Comments: DISSOLVE ONE TABLET ON THE TONGUE EVERY 8 HOURS NEEDED FOR NAUSEA HPI General Date/Time Provider Initiated Documentation: 04/26/24 11:40 . Limitations to Documentation: no limitations . Information obtained by: patient . HPI Narrative: 54-year-old gentleman with past medical history of pancreatic cancer on chemotherapy presents for evaluation of abdominal fullness, bloating and pain. He reports that his last dose of chemotherapy was Fernandez, 4 days ago, reports that over the weekend he developed a rash across his chest wall. They thought this was secondary to the chemotherapy and has been taking Benadryl without significant improvement. He reports abdominal fullness that has worsened over the last 2 days. Associated with decreased appetite, decreased urine output. Last bowel movement was yesterday after taking milk of magnesia. He reports a watery bowel movement. Has not had 1 today. Has not had any nausea or vomiting. Related Data Home Medications Medication Instructions Recorded Confirmed acetaminophen 500 mg tablet 500 mg PO QID PRN 07/01/23 04/26/24 aspirin 81 mg tablet,delayed 81 mg PO DAILY 07/01/23 04/26/24 release (Adult Low Dose Aspirin) atorvastatin 40 mg tablet 40 mg PO DAILY 07/01/23 04/26/24 carvedilol 3.125 mg tablet 3.125 mg PO BID 07/01/23 04/26/24 esomeprazole magnesium 40 mg 40 mg PO BID 07/01/23 04/26/24 capsule,delayed release famotidine 20 mg tablet 20 mg PO BID 07/01/23 04/26/24 magnesium oxide 400 mg PO BID 07/01/23 04/26/24 potassium chloride 20 mEq 40 meq PO BID 07/01/23 04/26/24 tablet,extended release meloxicam 7.5 mg tablet See Rx Instructions PO DAILY ankle 07/02/23 04/26/24 pain torsemide 20 mg tablet 20 mg PO DAILY 07/22/23 04/26/24 aspirin 81 mg tablet,delayed 81 mg PO DAILY 11/12/23 04/26/24 release (Adult Low Dose Aspirin) bumetanide 1 mg tablet 1 mg PO DAILY 11/12/23 04/26/24 colchicine 0.6 mg tablet 0.6 mg PO DAILY 11/12/23 04/26/24 gabapentin 400 mg capsule 400 mg PO TID 11/12/23 04/26/24 naproxen 500 mg tablet 500 mg PO BID 11/16/23 04/26/24 docusate sodium 100 mg capsule mg PO 04/26/24 ondansetron 4 mg disintegrating 4 mg PO PRN 04/26/24 04/26/24 tablet pantoprazole 40 mg tablet,delayed 40 mg PO ONCE 04/26/24 04/26/24 release Allergies Allergy/AdvReac Type Severity Reaction Status Date / Time prednisone Allergy Unknown low-magnesium Verified 04/26/24 14:20 requiring ER intervention General Stated Complaint: Abd Prob DAMIÁN: 3 Exam Narrative Exam Narrative: Review of Systems: All systems reviewed & are unremarkable except as noted in HPI and below Ill-appearing, no acute distress NCAT PERRL, normal conjunctiva RRR, low blood pressure Unlabored respiratory effort, clear bilaterally Mild abdominal distention, generalized tenderness to palpation Extremities w/o deformity, no cyanosis, no edema Erythematous maculopapular rash across chest wall no focal neurologic deficits Appropriate mood and affect Course Vital Signs Vital signs: Vital Signs Temperature 36.2 C L 04/26/24 11:10 Pulse 100 H 04/26/24 11:10 Respiratory Rate 16 04/26/24 11:10 Blood Pressure 143/69 H 04/26/24 11:10 Pulse Oximetry 100 04/26/24 11:10 Temperature 36.2 C L 04/26/24 11:10 Temperature Source Tympanic 04/26/24 11:10 Pulse 102 H 04/26/24 11:21 Respiratory Rate 18 04/26/24 11:21 Respiratory Effort Normal, Non-Labored 04/26/24 11:21 Blood Pressure 106/82 04/26/24 11:21 Blood Pressure Position Sitting 04/26/24 11:21 Pulse Oximetry 96 04/26/24 11:21 Oxygen Delivery Method Room Air 04/26/24 11:21 Pain Level 4 04/26/24 11:10 Lab/Test Results Lab/Test Results: Laboratory Tests Range/Units 04/26/24 12:25 WBC (4.4-10.8) 10^3/uL 7.22 RBC (4.36-5.78) 10^6/uL 4.18 L Hgb (13.5-17.5) g/dL 12.0 L Hct (40.0-50.0) % 37.2 L MCV (80-95) fL 89 MCH (27.0-33.0) pg 28.7 MCHC (32.0-36.0) % 32.3 RDW (11.8-14.1) % 12.5 Plt Count (130-400) 10^3/uL 201 MPV (8.0-11.0) fL 8.8 Immature Gran % % 0.7 Neutrophils % % 92.4 Lymphocytes % % 5.4 Monocytes % % 0.4 Eosinophils % % 1.0 Basophils % % 0.1 Nucleated RBC % (0.0-0.3) % 0.0 Absolute Neutrophils (1.2-6.7) 10^3/uL 6.67 Absolute Lymphocytes (1.2-3.4) 10^3/uL 0.39 L Absolute Monocytes (0.1-0.8) 10^3/uL 0.03 L Absolute Eosinophils (0.0-0.7) 10^3/uL 0.07 Absolute Basophils (0.0-0.2) 10^3/uL 0.01 RBC Morphology Normal VBG Lactate (0.6-1.4) mmol/L 0.8 Sodium (136-145) mmol/L 136 Potassium (3.5-5.1) mmol/L 3.9 Chloride (98-107) mmol/L 98 Carbon Dioxide (21.0-32.0) mmol/L 30.8 Anion Gap (3-11) mmol/L 7.2 BUN (7-18) mg/dL 10 Creatinine (0.70-1.30) mg/dL 0.7 Est GFR (CKD-EPI 2020) (mL/min/1.73m2) 110.87 Glucose (74-106) mg/dL 100 Calcium (8.5-10.1) mg/dL 9.2 Magnesium (1.8-2.4) mg/dL 1.8 Total Bilirubin (0.2-1.0) mg/dL 1.30 H AST (15-37) U/L 22 ALT (16-63) U/L 26 Alkaline Phosphatase (46-116) U/L 138 H Total Protein (6.4-8.2) g/dL 7.3 Albumin (3.4-5.0) g/dL 2.8 L Lipase (16-77) U/L 100 H Medical Decision Making Emergent evaluation of abdominal pain in a patient with known intra-abdominal malignancy. Initial differential includes bowel obstruction, with recent malignancy, chemotherapy side effect. Patient appears volume depleted, has low blood pressure and has had poor oral intake, likely side effects from his chemotherapy. He does not have a rigid abdomen, but has risk factors for bowel obstruction. Unfortunately at this time her CT scanner is down and I am not able to get CT imaging. Will start with fluid resuscitation, medication for symptom relief and check lab work. 1515 Lab work reviewed, no leukocytosis, no significant anemia. His lactic acid is not elevated making me less suspicious for infectious etiology. Creatinine is within normal limits. His lipase is slightly elevated, given his malignancy this is not surprising. Despite treatment, he is not feeling any better, and still has abdominal tenderness on exam. At this time I do feel the patient needs to CT scan. Given his cancer history and that he is followed by [facility], I have contacted them for potential transfer. 1530 Case discussed with [facility] providers, there is concern for possible failure of his duodenal stent causing his symptoms. On reevaluation, the patient does report improvement after IV morphine. The patient has been accepted for ED ED transfer. Accepting physician Dr. Oliva. Patient updated on plan for transfer. Will arrange transport. Medical Records Medical records reviewed: Yes I reviewed the patient's medical records. Lab Data Lab results reviewed: Yes I reviewed the patient's lab results. Quality:SDOH Health Related Social Needs: No Data to Display PFSH All Active Problems (Updated 04/26/24 @ 15:32 by New Jaime MD) Abdominal pain (Acute) Rash (Acute) Pancreatic cancer (Acute) Olecranon bursitis (Acute) Obese (Chronic) Hypotensive episode (Acute) Hypotension (Acute) Hypomagnesemia (Acute) Heartburn (Acute) Epidermal cyst (Acute) Colitis (Acute) Allergic rhinitis (Acute) Alcoholism (Acute) Tarsal tunnel syndrome (Acute) Venous (peripheral) insufficiency (Acute) Neuropathy (Acute) Pain in right ankle (Acute) Pain in left ankle (Acute) Posterior tibial tendon dysfunction (PTTD) of right lower extremity (Acute) Posterior tibial tendon dysfunction (PTTD) of left lower extremity (Acute) Nicotine dependence (Acute) Mantoux: positive (Acute) Hyperlipidemia (Acute) Gout (Chronic) Medical History (Updated 04/26/24 @ 15:32 by New Jaime MD) Weakness Pneumonia Peripheral edema Pancreatic cancer Olecranon bursitis of left elbow Mixed hyperlipidemia Pulmonary nodule Impacted cerumen GERD (gastroesophageal reflux disease) Fatigue Epidermoid cyst Elbow swelling Dehydration Cardiomyopathy Appetite loss Abdominal pain in male PEDRO (obstructive sleep apnea) Hypertension EtOH dependence Ankle sprain deltoid ligament Surgical History (Updated 04/26/24 @ 13:59 by Bertha Basilio) H/O bursectomy History of esophagogastroduodenoscopy (EGD) Hx of colonoscopy Social History (Updated 04/26/24 @ 14:00 by Bertha Basilio) Smoking/Tobacco Use Status: Current-Occasional Smoking risk assessment performed?: Yes Alcohol Intake: current Drug use: Never Substance use type: does not use Housing: apartment Do you feel safe at home: Yes Do you feel safe in your relationship?: Yes
[2024-04-26] MEDS: MORPHine 4 MG/ML SYR IVP (14:19)
[2024-04-26] MEDS: Normal Saline 1,000 ML 125 ML IV (14:46)
== END 2024-04-26 16:55 | disposition short-term general hospital (02) ==
PROVIDERS: Emergency Provider Emergency Medicine; PCP Neuromusculoskeletal Medicine & OMM
DX: R21 Rash and other nonspecific skin eruption (principal); R10.9 Unspecified abdominal pain; C25.9 Malignant neoplasm of pancreas, unspecified; Z79.899 Other long term (current) drug therapy; E78.5 Hyperlipidemia, unspecified; I10 Essential (primary) hypertension
CPT/HCPCS: 80053; 83690; 96361; 96374; 96375; 99284; 83605; 83735; 85025; 99285; J2270; J2765

== ENCOUNTER 2024-05-02 11:56 | Emergency (ER) | payer MEDICAID, SELFPAY ==
[2024-05-02] VITALS (23 sets, daily range): BP systolic 134–162; BP diastolic 93–109; PULSE 64–82; RESP 8–19; TEMP 36.2; O2SAT 95–99
[2024-05-02] MEDS: Normal Saline 1,000 ML 1000 ML IV (12:59)
[2024-05-02 13:08] LABS: Lactate 0.8 mmol/L (0.6-1.4)
[2024-05-02 13:09] LABS: HCT 36.5 % (40.0-50.0); HGB 12.2 g/dL (13.5-17.5); MCHC 33.4 % (32.0-36.0); MCV 87 fL (80-95); MPV 8.6 fL (8.0-11.0); Nucleated RBC 1.4 % (0.0-0.3); Platelet Count 188 10^3/uL (130-400); RDW-SD 38.6 fL; WBC 4.31 10^3/uL (4.4-10.8)
[2024-05-02 13:25] LABS: Absolute Lymphocyte Count 1.42 10^3/uL (1.2-3.4); Absolute Monocyte Count 0.39 10^3/uL (0.1-0.8); Atypical Lymphocytes % 5 %
[2024-05-02 13:26] LABS: Diff Comment Manual Differential; RBC Morphology Normal
[2024-05-02 13:29] LABS: ALT 96 U/L (16-63); AST 99 U/L (15-37); Albumin 2.8 g/dL (3.4-5.0); Alkaline Phosphatase 144 U/L (46-116); Anion Gap 6.9 mmol/L (3-11); BUN 5 mg/dL (7-18); Bilirubin, Total 0.66 mg/dL (0.2-1.0); CO2 33.1 mmol/L (21.0-32.0); CREATININE 0.6 mg/dL (0.70-1.30); Calcium 9.1 mg/dL (8.5-10.1); Chloride 101 mmol/L (98-107); Estimated GFR 116.15 (mL/min/1.73m2); Glucose 88 mg/dL (74-106); Lipase 86 U/L (16-77); Magnesium 1.5 mg/dL (1.8-2.4); Sodium 141 mmol/L (136-145); Total Protein 6.6 g/dL (6.4-8.2)
[2024-05-02] MEDS: Magnesium Oxide 400 MG TAB 800 MG PO (14:29)
--- NOTE | 2024-05-02 14:30 | W.ED.GENAD ---
Discharge Plan Discharge Details Chief Complaint: GenMedical Primary Care Provider: Cedric Rosenbaum ED Provider: Alan Francois Home Meds and New Rx's Prescriptions: No Action aspirin [Adult Low Dose Aspirin] 81 mg tablet,delayed release (DR/EC) 81 mg PO DAILY Hold Instructions: Pt Stopped/Never Started atorvastatin 40 mg tablet 40 mg PO DAILY Hold Instructions: Changed by Provider acetaminophen 500 mg tablet 500 mg PO QID PRN aspirin [Adult Low Dose Aspirin] 81 mg tablet,delayed release (DR/EC) 81 mg PO DAILY Hold Instructions: Pt Stopped/Never Started bumetanide 1 mg tablet 1 mg PO DAILY Hold Instructions: Changed by Provider colchicine 0.6 mg tablet 0.6 mg PO DAILY carvedilol 3.125 mg tablet 6.25 mg PO BID Patient Comments: 04/29/24- per pt PCP records from 04/14/24 Rx Instructions: must administer with a meal/food potassium chloride 20 mEq tablet extended release 20 meq PO DAILY Patient Comments: 04/29/24- per pt PCP records Zenpep 25,000-79,000- 105,000 unit capsule,delayed release(DR/EC) 2 cap PO TID Patient Comments: 04/29/24- per pt PCP records Rx Instructions: administer with meals and/or snacks alum-mag hydroxide-simeth [Maalox Advanced] 200-200-20 mg/5 mL suspension 10 ml PO TID PRN Patient Comments: 04/29/24- per pt PCP records Rx Instructions: administer between meals and at bedtime docusate sodium 100 mg capsule 200 mg PO BID Patient Comments: TAKE ONE CAPSULE BY MOUTH TWICE A DAY NEEDED FOR CONSTIPATION ondansetron 4 mg tablet,disintegrating 4 mg PO PRN Patient Comments: DISSOLVE ONE TABLET ON THE TONGUE EVERY 8 HOURS NEEDED FOR NAUSEA HPI General Mode of arrival: ambulatory. Date/Time Provider Initiated Documentation: 05/02/24 12:08. Limitations to Documentation: no limitations. Information obtained by: patient and RN notes reviewed. History of Present Illness 54 year old M presents to the emergency department with the chief complaint of Abdominal pain, loss of appetite, described as moderate and similar to prior episodes, Patient started experiencing this day(s) (10) and it has been constant. Related Data Home Medications Medication Instructions Recorded Confirmed acetaminophen 500 mg tablet 500 mg PO QID PRN 07/01/23 05/02/24 aspirin 81 mg tablet,delayed 81 mg PO DAILY 07/01/23 05/02/24 release (Adult Low Dose Aspirin) atorvastatin 40 mg tablet 40 mg PO DAILY 07/01/23 05/02/24 aspirin 81 mg tablet,delayed 81 mg PO DAILY 11/12/23 05/02/24 release (Adult Low Dose Aspirin) bumetanide 1 mg tablet 1 mg PO DAILY 11/12/23 05/02/24 colchicine 0.6 mg tablet 0.6 mg PO DAILY 11/12/23 05/02/24 docusate sodium 100 mg capsule 200 mg PO BID 04/26/24 05/02/24 ondansetron 4 mg disintegrating 4 mg PO PRN 04/26/24 05/02/24 tablet aluminum-mag hydroxide-simethicone 10 ml PO TID PRN 04/29/24 05/02/24 200 mg-200 mg-20 mg/5 mL oral susp (Maalox Advanced) carvedilol 3.125 mg tablet 6.25 mg PO BID 04/29/24 05/02/24 [id number] 2 cap PO TID 04/29/24 05/02/24 25,000-79,000-105,000 unit capsule,delayed rel (Zenpep) potassium chloride 20 mEq 20 meq PO DAILY 04/29/24 05/02/24 tablet,extended release Allergies Allergy/AdvReac Type Severity Reaction Status Date / Time prednisone Allergy Unknown low-magnesium Verified 05/02/24 12:03 requiring ER intervention General Stated Complaint: GenMedical DAMIÁN: 3 Review of Systems Constitutional Constitutional: Denies fever(s), Denies headache(s) and Reports malaise ENT Ears, Nose, Mouth, and Throat: Denies headache(s) Cardiovascular Cardiovascular: Denies chest pain and Denies dyspnea Respiratory Respiratory: Denies dyspnea Gastrointestinal Gastrointestinal: Reports abdominal pain, Denies diarrhea, Reports nausea and Denies vomiting Genitourinary Genitourinary: Reports system reviewed and no additional complaints, except as documented Neurologic Neurologic: Denies headache(s) Exam Const General: cooperative Orientation: alert, awake and oriented x3 Resp Effort & Inspection: normal respiratory effort and able to speak in complete sentences Auscultation: clear to auscultation bilaterally Cardio Rate: regular rate Rhythm: regular rhythm Heart Sounds: S1 normal and S2 normal GI Palpation: soft, not firm, no guarding, no masses, no pulsatile masses, not rigid and tender (Diffuse nonfocal) Auscultation: hypoactive bowel sounds Back/Spine/Pelvis Back: no CVA tenderness Neuro General: patient alert, patient awake, patient oriented x3, gait normal and moves all extremities Course Vital Signs Vital signs: Vital Signs Temperature 36.2 C L 05/02/24 12:00 Pulse 71 05/02/24 12:00 Respiratory Rate 18 05/02/24 12:00 Blood Pressure 152/99 H 05/02/24 12:00 Pulse Oximetry 98 05/02/24 12:00 Temperature 36.2 C L 05/02/24 13:17 Pulse 71 05/02/24 13:17 Respiratory Rate 18 05/02/24 13:17 Respiratory Effort Normal 05/02/24 13:17 Blood Pressure 152/99 H 05/02/24 13:17 Blood Pressure Position Sitting 05/02/24 13:17 Pulse Oximetry 98 05/02/24 13:17 Oxygen Delivery Method Room Air 05/02/24 13:17 Oxygen Flow Rate 0 05/02/24 13:17 Lab/Test Results Lab/Test Results: Laboratory Tests Range/Units 05/02/24 12:53 WBC (4.4-10.8) 10^3/uL 4.31 L RBC (4.36-5.78) 10^6/uL 4.20 L Hgb (13.5-17.5) g/dL 12.2 L Hct (40.0-50.0) % 36.5 L MCV (80-95) fL 87 MCH (27.0-33.0) pg 29.0 MCHC (32.0-36.0) % 33.4 RDW (11.8-14.1) % 12.0 Plt Count (130-400) 10^3/uL 188 MPV (8.0-11.0) fL 8.6 Immature Gran % % 0.0 Neutrophils % % 58.0 Lymphocytes % % 28.0 Atypical Lymphs % % 5 Monocytes % % 9.0 Eosinophils % % 0.0 Basophils % % 0.0 Nucleated RBC % (0.0-0.3) % 1.4 H Absolute Neutrophils (1.2-6.7) 10^3/uL 2.50 Absolute Lymphocytes (1.2-3.4) 10^3/uL 1.42 Absolute Monocytes (0.1-0.8) 10^3/uL 0.39 Absolute Eosinophils (0.0-0.7) 10^3/uL 0.00 Absolute Basophils (0.0-0.2) 10^3/uL 0.00 RBC Morphology Normal VBG Lactate (0.6-1.4) mmol/L 0.8 Sodium (136-145) mmol/L 141 Potassium (3.5-5.1) mmol/L 3.0 L Chloride (98-107) mmol/L 101 Carbon Dioxide (21.0-32.0) mmol/L 33.1 H Anion Gap (3-11) mmol/L 6.9 BUN (7-18) mg/dL 5 L Creatinine (0.70-1.30) mg/dL 0.6 L Est GFR (CKD-EPI 2020) (mL/min/1.73m2) 116.15 Glucose (74-106) mg/dL 88 Calcium (8.5-10.1) mg/dL 9.1 Magnesium (1.8-2.4) mg/dL 1.5 L Total Bilirubin (0.2-1.0) mg/dL 0.66 AST (15-37) U/L 99 H ALT (16-63) U/L 96 H Alkaline Phosphatase (46-116) U/L 144 H Total Protein (6.4-8.2) g/dL 6.6 Albumin (3.4-5.0) g/dL 2.8 L Lipase (16-77) U/L 86 H Medical Decision Making Patient presenting to the emergency department for chief complaint of abdominal pain with decreased oral intake. Patient states approximately 10 days ago he had first round of IV chemo and then within a couple days developed decreased intake with low appetite and some abdominal pain. This has increased and continued. Approximately 5 days ago patient [place] [facility] [place] with no significant change to findings consistent with his pancreatic cancer and no other severe lab abnormalities. Patient concerned due to continued decrease in intake and pain. Patient did call oncology office which sent him to the emergency department for evaluation. Patient denies fever chills, cough cold or other symptoms. Physical exam is positive for diffuse but nonfocal abdominal pain, soft abdomen with no rigidity or guarding, hypoactive bowel sounds otherwise noncontributory exam. Given patient's history and recent chemo will check labs and perform CT imaging. Pending results will give IV fluids. Review of labs show stable CBC with no significant changes, CMP does show slight hypokalemia and hypomagnesemia, renal function is appropriate, AST ALT and alk phos are elevated but I assume that this is secondary to patient's chemotherapy but no emergent findings. Urinalysis shows no signs of infection but does show high specific gravity. Lab Data Lab results reviewed: Yes I reviewed the patient's lab results. Quality:SDOH Health Related Social Needs: No Data to Display PFSH All Active Problems Abdominal pain (Acute) Rash (Acute) Pancreatic cancer (Acute) Olecranon bursitis (Acute) Obese (Chronic) Hypotensive episode (Acute) Hypotension (Acute) Hypomagnesemia (Acute) Heartburn (Acute) Epidermal cyst (Acute) Colitis (Acute) Allergic rhinitis (Acute) Alcoholism (Acute) Tarsal tunnel syndrome (Acute) Venous (peripheral) insufficiency (Acute) Neuropathy (Acute) Pain in right ankle (Acute) Pain in left ankle (Acute) Posterior tibial tendon dysfunction (PTTD) of right lower extremity (Acute) Posterior tibial tendon dysfunction (PTTD) of left lower extremity (Acute) Nicotine dependence (Acute) Mantoux: positive (Acute) Hyperlipidemia (Acute) Gout (Chronic) Medical History Weakness Pneumonia Peripheral edema Pancreatic cancer Olecranon bursitis of left elbow Mixed hyperlipidemia Pulmonary nodule Impacted cerumen GERD (gastroesophageal reflux disease) Fatigue Epidermoid cyst Elbow swelling Dehydration Cardiomyopathy Appetite loss Abdominal pain in male PEDRO (obstructive sleep apnea) Hypertension EtOH dependence Ankle sprain deltoid ligament Surgical History H/O bursectomy History of esophagogastroduodenoscopy (EGD) Hx of colonoscopy Social History Smoking/Tobacco Use Status: Former Tobacco Use Smoking risk assessment performed?: Yes Alcohol Intake: former Drug use: Never Substance use type: does not use Housing: apartment Do you feel safe at home: Yes Do you feel safe in your relationship?: Yes Sign Out Sign Out Data: Sign Out Comment: Patient signed out pending CT imaging results for increased abdominal pain after chemo with diagnosis of pancreatic cancer. Last updated by Alan Francois NP at 05/02/24 16:18
[2024-05-02 14:41] LABS: Bilirubin Negative (Negative); Blood Negative (Negative); Clarity Cloudy (Clear); Glucose Negative (Negative); Ketones Negative (Negative); Leukocyte Esterase Negative (Negative); Nitrite Negative (Negative); Specific Gravity >= 1.030 (1.005-1.025); Urobilinogen 0.2 mg/dL (Up to 0.2); pH 5.5 (5-8)
--- NOTE | 2024-05-02 15:46 | NUR.NOTE ---
[place] [facility] [place] determine whether or not the [place] placed. Information found that it is a power port, with Kenya Villela charge aide nurse. She placed the information in [employer]. Nursing Note:
[2024-05-02] MEDS: Normal Saline - Diluent 50 ML VIAL IJ (15:53)
[2024-05-02] MEDS: Omnipaque 350 MG/ML 100 ML BTL IJ (15:54)
--- NOTE | 2024-05-02 15:57 | DI.CT_ITS ---
Exam(s) CT ABDOMEN PELVIS W EXAM: CT ABDOMEN PELVIS W CLINICAL HISTORY: abd pain. TECHNIQUE: Imaging Protocol: Axial computed tomography images with coronal and sagittal reformatted images were created and reviewed CONTRAST MATERIAL: Intravenous: Omnipaque-350 100cc Oral: None COMPARISON: CT,NM,TMT NM MPI REST STRESS GRP from 10/03/2021 CR XR FOOT RT COMPLETE from 07/09/2023 FINDINGS: VISUALIZED LUNG BASES: No nodules nor pleural effusions evident. ABDOMEN: GI: There is a self expanding-type intra duodenal stent at the ligament of Treitz level and extending into the proximal jejunal loop. This is surrounded by a 5 x 6 x 5 cm mass which exhibits vascular e ncasement and most probably malignant. There is also some surrounding mesenteric streaking. No free air.. The mass appears to have epicenter within the uncinate process of the pancreas but also invol ves the duodenum. LIVER: Liver is mildly hypodense implying steatosis. There no discrete focal hepatic lesions identif ied. No dilated intrahepatic ducts. GALLBLADDER/BILIARY: Small densities in the gallbladder may represent calculi or polyps. The gallbla dder is not distended nor edematous. CBD is not dilated. PANCREAS: Large ominous mass as described above most probably adenocarcinoma with vascular encasement . SPLEEN: Splenomegaly noted. Cephalocaudal measurement of the spleen is 14.8 cm. No intrasplenic les ions evident. The distal splenic plain at the level of the portal vein confluence is engulfed by the tumor but not occluded. However, the superior mesenteric vein is engulfed and probably occluded. ADRENALS: There are no significant adrenal masses. KIDNEYS:No cysts evident. No solid renal masses. No calculi nor hydronephrosis.. ABDOMINAL AORTA: Abdominal aorta is not enlarged. LYMPH NODES:There is no retroperitoneal nor paraaortic adenopathy. ABDOMINAL WALL: There is a midline umbilical fat containing hernia. Some streaking in this in the fa t is noted within the hernia sac. There is no bowel obstruction. PELVIS: GI: No evidence of appendicitis.No evidence of sigmoid diverticulitis. LYMPH NODES: There is no intrapelvic nor inguinal adenopathy. REPRODUCTIVE: Prostate size upper normal. Seminal vesicles unremarkable. URINARY BLADDER: No calculi nor obvious masses evident OSSEOUS: No fractures and no significant osseous lesions. Small amount of free fluid in the dependent aspect of the pelvis noted in this male patient. IMPRESSION: 1. There is a large malignant-appearing 5 x 6 x 5 cm midline retroperitoneal mass involving the head- uncinate process of the pancreas and the duodenum. There is a horizontally orientated self expanding -type stent in the duodenal lumen which is at and distal to the ligament of Treitz. This traverses t he region of the engulfing mass. The diameter of this stent is 2.4 cm and with a waist of 1 point 4 cm at the level of the mass. The CBD and gallbladder not dilated. The pancreatic duct in the body a nd tail is not dilated. 2. There is mild splenomegaly. Suspect that this is possibly related to the splenic vein being engul fed by the mass at the portal vein confluence level. The main portal vein is patent but the superior mesenteric vein is occluded at the portal vein confluence level. 3. There are no metastatic lesions in the liver. There is a small amount of free fluid in the depend ent aspect of the pelvis. 4. Other findings as above Discussed with ER provider. RADIATION DOSE DELIVERED: 1,447.62mGy.cm Total DLP DATA REPOSITORY: All CT scans at this facility are submitted to the National Radiology Data Registry (NRDR) Dose Index Registry (DIR) with the [employer] ([employer]). RADIATION OPTIMIZATION: All CT scans at this facility use at least one of these dose optimization te chniques: automated exposure control; mA and/or kV adjustment per patient size (includes targeted exa ms where dose is matched to clinical indication); or iterative reconstruction.
--- NOTE | 2024-05-02 16:39 | ED.PROG_ITS ---
Date of service: 05/02/24 Time of Service: 16:39 Medical Decision Making This dictation utilizes [id number]-[id number] dictation software and may contain unedited grammatical errors. Patient seen in sign-out from Alan Francois NP - please see his complete note. Crystal this 54 y/o M presents to ED today with a chief complaint of known pancreatic cancer- started chemotherapy 04/22/24- complaining of worsening abdominal pain, decreased PO intake, unable to eat or drink with pending CT read. CT read was called to me by Dr. Christy of radiology showing complex abdominal pathology and question of duodenal stent, large mass causing obstruction of various vessels- questions if this stent was in the CBD previou sly- records search and likely consultation with [facility] Oncology. Patients' medical history: [ ]. Family and social history: [ ]. Pertinent exam findings / vital signs include diffuse abdominal tenderness- see prior note. Differential / pathologies of concern include large abdominal mass, SBO, sepsis, biliary cholangiitis. Diagnostic studies of: -labs reviewed, noted hypokalemia and hypomagnesemia - prior provider had given 1 dose PO repletion. -mild elevation of lipase with improvement from prior 04/26 value -LFTs mildly elevated -no UTI on UA Interventions of: -Discussed the case with [facility] on-call Dr. Nogueira - patient will take his potassium BID, has f/u with them on Thursday, plan to send home with PRN oxycodone/hydromorphone and they will take over long-term with patients pain control on Thursday. Discussed possible splenic vein mass effect, SMV occlusion and size of tumor- they will continue to monitor.. ED Course/Assessment/Plan: 54-year-old male presents to the ED after initiation of chemo on April 22 with increasing abdominal pain, states he is having trouble keeping things down having nausea and some mild vomiting but mostly abdominal pain has most focal symptom. I discussed the results of his CT which shows some possible compression of the splenic vein unlikely any emergent interventional pathology, [facility] oncology is comfortable with follow-up for the patient on Thursday, and made them aware of his CT results as well as lab abnormalities, had him double his potassium supplement and take magnesium supplements at home. Provided him with to go packs of narcotic pain management for trial of relief of his pain with likely continuation long-term at his oncology appointment this Thursday. Findings not consistent with biliary cholangitis, SBO, emergent occlusive abdominal pathology from mass effect. Disposition of Abdominal Pain. Patient verbalized understanding of the plan and return to ED criteria and engaged in shared decision making. Medical Records Medical records reviewed: Yes I reviewed the patient's medical records. Imaging Data Radiologic Study: Attestation: I personally reviewed and interpreted this imaging study as follows: Imaging: CT Scan Radiologist's impression: EXAM: CT ABDOMEN PELVIS W CLINICAL HISTORY: abd pain. TECHNIQUE: Imaging Protocol: Axial computed tomography images with coronal and sagittal reformatted images were created and reviewed CONTRAST MATERIAL: Intravenous: Omnipaque-350 100cc Oral: None COMPARISON: CT,NM,TMT NM MPI REST STRESS GRP from 10/03/2021 CR XR FOOT RT COMPLETE from 07/09/2023 FINDINGS: VISUALIZED LUNG BASES: No nodules nor pleural effusions evident. ABDOMEN: GI: There is a self expanding-type intra duodenal stent at the ligament of Treitz level and extending into the proximal jejunal loop. This is surrounded by a 5 x 6 x 5 cm mass which exhibits vascular encasement and most probably malignant. There is also some surrounding mesenteric streaking. No free air.. The mass appears to have epicenter within the uncinate process of the pancreas but also involves the duodenum. LIVER: Liver is mildly hypodense implying steatosis. There no discrete focal hepatic lesions identified. No dilated intrahepatic ducts. GALLBLADDER/BILIARY: Small densities in the gallbladder may represent calculi or polyps. The gallbladder is not distended nor edematous. CBD is not dilated. PANCREAS: Large ominous mass as described above most probably adenocarcinoma with vascular encasement. SPLEEN: Splenomegaly noted. Cephalocaudal measurement of the spleen is 14.8 cm. No intrasplenic lesions evident. The distal splenic plain at the level of the portal vein confluence is engulfed by the tumor but not occluded. However, the superior mesenteric vein is engulfed and probably occluded. ADRENALS: There are no significant adrenal masses. KIDNEYS:No cysts evident. No solid renal masses. No calculi nor hydronephrosis.. ABDOMINAL AORTA: Abdominal aorta is not enlarged. LYMPH NODES:There is no retroperitoneal nor paraaortic adenopathy. ABDOMINAL WALL: There is a midline umbilical fat containing hernia. Some streaking in this in the fat is noted within the hernia sac. There is no bowel obstruction. PELVIS: GI: No evidence of appendicitis.No evidence of sigmoid diverticulitis. LYMPH NODES: There is no intrapelvic nor inguinal adenopathy. REPRODUCTIVE: Prostate size upper normal. Seminal vesicles unremarkable. URINARY BLADDER: No calculi nor obvious masses evident OSSEOUS: No fractures and no significant osseous lesions. Small amount of free fluid in the dependent aspect of the pelvis noted in this male patient. IMPRESSION: 1. There is a large malignant-appearing 5 x 6 x 5 cm midline retroperitoneal mass involving the head-uncinate process of the pancreas and the duodenum. There is a horizontally orientated self expanding-type stent in the duodenal lumen which is at and distal to the ligament of Treitz. This traverses the region of the engulfing mass. The diameter of this stent is 2.4 cm and with a waist of 1 point 4 cm at the level of the mass. The CBD and gallbladder not dilated. The pancreatic duct in the body and tail is not dilated. 2. There is mild splenomegaly. Suspect that this is possibly related to the splenic vein being engulfed by the mass at the portal vein confluence level. The main portal vein is patent but the superior mesenteric vein is occluded at the portal vein confluence level. 3. There are no metastatic lesions in the liver. There is a small amount of free fluid in the dependent aspect of the pelvis. 4. Other findings as above Discussed with ER provider. Lab Data Lab results reviewed: Yes I reviewed the patient's lab results. Labs: Laboratory Tests Range/Units 05/02/24 05/02/24 12:53 14:32 WBC (4.4-10.8) 10^3/uL 4.31 L RBC (4.36-5.78) 10^6/uL 4.20 L Hgb (13.5-17.5) g/dL 12.2 L Hct (40.0-50.0) % 36.5 L MCV (80-95) fL 87 MCH (27.0-33.0) pg 29.0 MCHC (32.0-36.0) % 33.4 RDW (11.8-14.1) % 12.0 Plt Count (130-400) 10^3/uL 188 MPV (8.0-11.0) fL 8.6 Immature Gran % % 0.0 Neutrophils % % 58.0 Lymphocytes % % 28.0 Atypical Lymphs % % 5 Monocytes % % 9.0 Eosinophils % % 0.0 Basophils % % 0.0 Nucleated RBC % (0.0-0.3) % 1.4 H Absolute Neutrophils (1.2-6.7) 10^3/uL 2.50 Absolute Lymphocytes (1.2-3.4) 10^3/uL 1.42 Absolute Monocytes (0.1-0.8) 10^3/uL 0.39 Absolute Eosinophils (0.0-0.7) 10^3/uL 0.00 Absolute Basophils (0.0-0.2) 10^3/uL 0.00 RBC Morphology Normal VBG Lactate (0.6-1.4) mmol/L 0.8 Sodium (136-145) mmol/L 141 Potassium (3.5-5.1) mmol/L 3.0 L Chloride (98-107) mmol/L 101 Carbon Dioxide (21.0-32.0) mmol/L 33.1 H Anion Gap (3-11) mmol/L 6.9 BUN (7-18) mg/dL 5 L Creatinine (0.70-1.30) mg/dL 0.6 L Est GFR (CKD-EPI 2020) (mL/min/1.73m2) 116.15 Glucose (74-106) mg/dL 88 Calcium (8.5-10.1) mg/dL 9.1 Magnesium (1.8-2.4) mg/dL 1.5 L Total Bilirubin (0.2-1.0) mg/dL 0.66 AST (15-37) U/L 99 H ALT (16-63) U/L 96 H Alkaline Phosphatase (46-116) U/L 144 H Total Protein (6.4-8.2) g/dL 6.6 Albumin (3.4-5.0) g/dL 2.8 L Lipase (16-77) U/L 86 H Urine Color (Yellow) Yellow Urine Clarity (Clear) Cloudy Urine pH (5-8) 5.5 Ur Specific [place] (1.005-1.025) >= 1.030 H Urine Protein (Neg-Trace) mg/dL Negative Urine Ketones (Negative) mg/dL Negative Urine Blood (Negative) Negative Urine Nitrite (Negative) Negative Urine Bilirubin (Negative) Negative Urine Urobilinogen (Up to 0.2) mg/dL 0.2 Ur Leukocyte Esterase (Negative) Negative Urine Glucose (Negative) mg/dL Negative Quality:SDOH Health Related Social Needs: No Data to Display Sign Out Sign Out Data: Sign Out Comment: Patient signed out pending CT imaging results for increased abdominal pain after chemo with diagnosis of pancreatic cancer. Last updated by Alan Francois NP at 05/02/24 16:18 Discharge Plan Disposition Patient Disposition: Home Condition: Stable Discharge Details Clinical Impression: Abdominal pain of unknown cause Primary Care Provider: Cedric Rosenbaum ED Provider: Neto Chauhan Home Meds and New Rx's Prescriptions: Continued aspirin [Adult Low Dose Aspirin] 81 mg tablet,delayed release (DR/EC) 81 mg PO DAILY Hold Instructions: Pt Stopped/Never Started atorvastatin 40 mg tablet 40 mg PO DAILY Hold Instructions: Changed by Provider acetaminophen 500 mg tablet 500 mg PO QID PRN aspirin [Adult Low Dose Aspirin] 81 mg tablet,delayed release (DR/EC) 81 mg PO DAILY Hold Instructions: Pt Stopped/Never Started bumetanide 1 mg tablet 1 mg PO DAILY Hold Instructions: Changed by Provider colchicine 0.6 mg tablet 0.6 mg PO DAILY carvedilol 3.125 mg tablet 6.25 mg PO BID Patient Comments: 04/29/24- per pt PCP records from 04/14/24 Rx Instructions: must administer with a meal/food potassium chloride 20 mEq tablet extended release 20 meq PO DAILY Patient Comments: 04/29/24- per pt PCP records Zenpep 25,000-79,000- 105,000 unit capsule,delayed release(DR/EC) 2 cap PO TID Patient Comments: 04/29/24- per pt PCP records Rx Instructions: administer with meals and/or snacks alum-mag hydroxide-simeth [Maalox Advanced] 200-200-20 mg/5 mL suspension 10 ml PO TID PRN Patient Comments: 04/29/24- per pt PCP records Rx Instructions: administer between meals and at bedtime docusate sodium 100 mg capsule 200 mg PO BID Patient Comments: TAKE ONE CAPSULE BY MOUTH TWICE A DAY NEEDED FOR CONSTIPATION ondansetron 4 mg tablet,disintegrating 4 mg PO PRN Patient Comments: DISSOLVE ONE TABLET ON THE TONGUE EVERY 8 HOURS NEEDED FOR NAUSEA Discharge Instructions Instructions: Hydromorphone, Oxycodone, Abdominal Pain, Adult ED Additional Instructions: You were seen in the emergency department for your abdominal pain in the setting of recent initiation of chemotherapy for pancreatic cancer. I relayed results of your CT scan today to your oncology team, there is no acute emergent please follow-up with changes that require intervention at this time. You do have low magnesium and low potassium. Please double your potassium to take twice per day-take sfav-pje-lsfulep magnesium supplements regularly once per day. Please have these labs rechecked at your appointment on Thursday. I discussed pain control with your team, they will take over long-term pain management at your appointment on Thursday and we are sending you home with to go packs of certain narcotic pain medicines. Use the pain medicine supplied sparingly, if oxycodone is not covering her pain use the supplied hydromorphone, discussed how you have been dosing these medicines and their effectiveness with your providers at appointment on Thursday. Please return to the emergency department for any severe increase in abdominal pain, any profound weakness, intractable nausea or vomiting, new fevers, chest pain or shortness of breath. Referrals: Cedric Rosenbaum [Primary Care Provider] - Discharge Data Discharge Date/Time-TO BE ENTERED AT DEPARTURE: 05/02/24 18:40
[2024-05-02] MEDS: HYDROmorphone 2 MG TAB 10 MG PO (18:39)
== END 2024-05-02 18:40 | disposition home or self-care (01) ==
PROVIDERS: Nurse Practitioner Family; Emergency Provider Physician Assistant; PCP Neuromusculoskeletal Medicine & OMM
DX: R10.9 Unspecified abdominal pain (principal)
CPT/HCPCS: 00123; 36415; 80053; 83690; 96360; 96361; 99285; 74177; 81003; 83605; 83735; 85025; 99284; J3490

== ENCOUNTER 2024-05-14 12:43 | Emergency (ER) | payer MEDICAID, SELFPAY ==
[2024-05-14] VITALS (11 sets, daily range): BP systolic 114–132; BP diastolic 81–101; PULSE 66–84; RESP 14; TEMP 36.4–37; O2SAT 98–100
--- OUTSIDE RECORDS SUMMARY | 2024-05-14 12:55 | XMS_ITS | Encounter Summary ---
Author Organization [facility] [place] [address] Care Team Providers Care Juice Standardizer Name Role Phone Cedric Rosenbaum DO Primary Care Provider [phone] Encounter Details Date Type Department Care Team (Late st Contact Info) Description 05/02/2024 8:35 PM EDT Ancillary Procedure [place] [address] Ministerio Kelly MD [facility] [place] [place] [address] Social History Tobacco Use Types Packs/Day Years Used Date Smoking Tobacco: Former Cigarettes 0.5 37.2 1 987 - 02/01/2024 Smokeless Tobacco: Never Alcohol Use Standard Drinks/Week Comments Not Currently 182 (1 standard drink = 0.6 oz p ure alcohol) quit in february 2024 B1300 Health Literacy Answer Date Recor ded How often do you need to hav e someone help you when you read instructions, pamphlets, or other written material from your doctor or pharmacy? Never 04/12/2024 [facility] Utilities Answer Date Recorded In the past 12 months has e [employer], gas, oil, or water [employer] threatened to shut off services in your home? No 04/12/2024 Overall Financial Resource Strain (CARDIA) Answe r Date Recorded How hard is it for you to pa y for the very basics like food, housing, medical care, and heating? Patient declined 04/12/2024 Hunger Vital Sign Answer Date Recorded Within the past 12 months, y ou worried that your food would run out before you got the money to buy more. Sometimes true Within the past 12 months, t he food you bought just didn't last and you didn't have money to get more. Sometimes true 09/2024 PRAPARE - Transportation Answer Date Re corded In the past 12 months, has l ack of transportation kept you from medical appointments or from getting medications? No 04/02 In the past 12 months, has l ack of transportation kept you from meetings, work, or from getting things needed for daily living? No 04/12/2024 Housing Stability Vital Sign Answer Mike e Recorded In the last 12 months, was t here a time when you were not able to pay the mortgage or rent on time? No 04/12/2024 In the past 12 months, how m any times have you moved where you were living? 0 04/12/2024 At any time in the past [address] [facility], were you homeless or living in a fpc (including now)? No 04/12/2024 [facility] IPV Inpatient Questions Answer Date Recorded Does Anyone Try to Keep You From Having Contact with Others or Doing Things Outside Your Home? no 04/26/2024 Feels Threatened by Someone no 04/03 Feels Unsafe at Home or Work/School no 04/26/2024 Physical Signs of Abuse Present no 04/26/2024 Sex and Gender Information Value Date Recorded Sex Assigned at Not on file Gender Identity Not on file Sexual Orientation Not on file documented as of this encounter Plan of Treatment Upcoming Encounters Date Type Department Care Team (Late st Contact Info) Description 05/20/2024 8:30 AM EDT Office Visit Hematology/Oncology at [address] [phone] Ministerio Kelly MD [facility] [place] [address] Katherine Guadarrama APRN [address] [place] [address] HEMATOLOGY AND ONGOLOCY [place], [place] [address] 05/20/2024 9:00 AM EDT Infusion Hematology Oncology at [address] [phone] 05/30/2024 1:00 PM EDT Tech [place] [address] EmilianaPalmer katejennifer Dee 05/30/2024 4:00 PM EDT Office [place] [phone] Derek Evans MD [facility] [place] [address] 06/03/2024 8:30 AM EDT Office Visit Hematology/Oncology at [address] [phone] Ministerio Kelly MD [facility] [place] [address] Katherine Guadarrama CUT IN STATION OPERATOR [address] [place] [address] [place] [address] 06/03/2024 9:00 AM EDT Infusion Hematology Oncology at [address] [phone] documented as of this encounter Procedures Procedure Name Priority Date/Time Associated Diagnosis Comments FILM LIBRARY STORAGE ONLY CT ABDOMEN AND PELVIS Routine 05/02/2024 8:31 PM EDT documented in this encounter Results * Film Library- Storage Only CT Abdomen & Pelvis (05/02/2024 8:31 PM EDT) Narrative [facility] - 05/02/2024 8:31 PM EDT This exam is auto-finalizing. It's purpose is for storage only. Ministerio Kelly MD G FILM LIBRARY ORD ERABLES DH [place], [place] documented in this encounter Visit Diagnoses Not on filedocumented in this encounter Care Teams Juice Standardizer Relationship Specialty Start Date End Date Cedric Rosenbaum DO [address] [place] [phone] PCP - General Family Medicine 03/29/24 documented as of this encounter
--- OUTSIDE RECORDS SUMMARY | 2024-05-14 12:55 | XMS_ITS | Encounter Summary ---
[place] [address] Care Team Providers Care General Internist And Physician Leader Name Role Phone Cedric Rosenbaum DO Primary Care Provider [phone] Reason for Visit * Reason Onset Date Comments Other 05/02/2024 Financial assist ance Encounter Details Date Type Department Care Team (Late st Contact Info) Description 05/02/2024 Telephone Hematology/Oncology at [address] [phone] Heidi Glynn, [employer]INE WORK[employer] OFFICE OF CARE MANAGEMENT Other (Financial assistance) Social History Tobacco Use Types Packs/Day Years [...] from your doctor or pharmacy? Never 04/12/2024 [facility] Utilities Answer Date Recorded In the past 12 months has e electric, gas, oil, or water company threatened to shut off services in your [...] any time in the past 12 m [facility], were you homeless or living in a senior care (including now)? No 04/12/2024 IPV Inpatient Questions Answer Date Recorded Does [...] on file documented as of this encounter Miscellaneous Notes * Telephone Encounter - Heidi Glynn, [employer] - 05/02/2024 8:30 AM EDT MIRNA Zuniga this morning and discussed the following - Blanche Peng RD assisted Efrain with 1/$50 gas card from the [employer] and 2/$25 grocery cards from the [facility] on 04-29-24 Received notification that the [facility] [place] approved Efrain request for $350 towards his rent and the check was mailed out last Thursday. Informed Efrain of this. Efrain reports he was approved for the [employer] and should be receiving $250/month for 6 months. Efrain has ot heard anything yet from the [employer] fund. Efrain agreed to have [employer]ER make a request to the [employer] for a gas card. Informed Efrain that the [employer] is presently closed. [employer] WORKER will continue to follow for support and resources. Care Coordination Food insecurity resources Financial resources Transportation resources Community Resource Add: Received notification that the SN will mail Efrain a gas card. documented in this encounter Plan of Treatment Upcoming Encounters Date Type Department Care Team (Late st Contact Info) Description 05/20/2024 8:30 AM EDT Office Visit Hematology/Oncology at [address] [phone] Ministerio Kelly MD [facility] [place] [address] Katherine Guadarrama APRN [address] [place] [address] DR HEMATOLOGY AND ONGOLOCY [place], [place] [phone] 05/20/2024 9:00 AM EDT Infusion Hematology Oncology at [address] [phone] 05/30/2024 1:00 PM EDT Tech [place] [phone] Dena Graves 05/30/2024 4:00 PM EDT Office [place] [phone] Derek Evans MD [facility] [place] [address] 06/03/2024 8:30 AM EDT Office Visit Hematology/Oncology at [address] [phone] Ministerio Kelly MD [facility] [place] [address] Katherine Guadarrama APRN [address] [place] [address] DR [place] [phone] 06/03/2024 9:00 AM EDT Infusion Hematology Oncology at [address] [phone] documented as of this encounter Visit Diagnoses Not on filedocumented in this encounter Care Teams General Internist And Physician Leader Relationship Specialty Start Date End Date Cedric Rosenbaum DO [address] [place] [phone] PCP - General Family Medicine 03/29/24 documented as of this encounter
--- OUTSIDE RECORDS SUMMARY | 2024-05-14 12:55 | XMS_ITS | Encounter Summary ---
Author Organization [facility] Address [facility] [place] [address] Care Team Providers Care Adhesive Sprayer Name Role Phone Cedric Rosenbaum DO Primary Care Provider [phone] Encounter Details Date Type Department Care Team (Late st Contact Info) Description 05/06/2024 8:30 AM EDT Office Visit Hematology/Oncology at [address] [phone] Ministerio Kelly MD [facility] [place] [address] Katherine Guadarrama, SENIOR CONSTRUCTION MANAGER [address] [place] [address] DR HEMATOLOGY AND ONGOLOCY [place], [place] [phone] Malignant neoplasm of head of pancreas; Upper abdominal pain Social History Tobacco Use Types Packs/Day Years [...] from your doctor or pharmacy? Never 04/12/2024 [facility] Utilities Answer Date Recorded In the past 12 months has e [employer], gas, oil, or water company threatened to [...] any time in the past 12 m [facility], were you homeless or living in a [facility]p (including now)? No 04/12/2024 DH IPV Inpatient [...] on file documented as of this encounter Last Filed Vital Signs Vital Sign Reading Time Taken Comments Blood Pressure 115/82 05/06/2024 8:21 AM EDT Pulse 74 05/06/2024 8:21 AM EDT Temperature 36.1 ??C (96.9 ??F) 05/06/2024 8:21 AM ED T Respiratory Rate 18 05/06/2024 8:21 AM EDT Oxygen Saturation 99% 05/06/2024 8:21 AM EDT Inhaled Oxygen Concentration - - Weight 121.8 kg (268 lb 9.6 oz) 05/06/2024 8:21 AM EDT Height 180.3 cm (5' 10.98) 05/06/2024 8:21 AM E DT Body Mass Index 37.48 05/06/2024 8:21 AM EDT documented in this encounter Progress Notes * Ministerio Kelly MD - 05/06/2024 8:30 AM EDT Subjective Patient ID: Dylan Michele is 54 y.o. Problem List: Pancreatic cancer, locally advanced unresectable; clinical stage T4N0M0, stage III A. Beginning in September 2023, Efrain noted unintentional weight loss, nausea, vomiting, and poor appetite. He first sought medical attention in November 2023, during which a CT abdomen was performed, which was reportedly negative. When symptoms persisted, further work-up with colonoscopy, endoscopy, and repeat CT abdomen was performed. Colonoscopy showed several polyps (biopsied), endoscopy was reportedly negative, and CT abdomen showed 5x8cm mass on the inferior head of the pancreas. Since September, he reports 86lbs weight loss. Presented with worsening oral intake CT a/p 03/25/24 [place] c/2 12/[place]23[place] - IMPRESSION 1. Increased size of the primary pancreatic neoplasm with vascular encasement/abutment, as above, as well as contact with the duodenum. 2. No lymphadenopathy or metastatic disease. [place] [facility] [place]. Upper EUS 03/31/24 - Impression: - Pancreas uncinate mass. Fine needle biopsy performed. On-site cytopathology read suggestive of malignancy. - Malignant duodenal obstruction. Uncovered duodenal stent successfully placed. Cytology - Pancreas: uncinate (EUS-guided FNA) - Adenocarcinoma. Immunostains for MLH1, MSH2, MSH6, and PMS2 reveal intact nuclear staining in tumor cells. C. CT chest 03/31/24 - IMPRESSION No evidence for intrathoracic metastasis D. [facility] 04/12/24, images reviewed. The primary tumor is considered locally advanced unresectable dueto vascular involvement (SMV and SMA encasement; abutment of common hepatic artery). The recommendation was for upfront chemotherapy with restaging and consideration of radiation if no evidence of met astatic disease. 2. H/o heart failure Echo 04/2023 - Interpretation Summary 1. Global systolic function is preserved with an EF of 60-65% with normal wall motion. Diastolic function is normal. 2. RV normal in size with normal RV function. Pulmonary artery systolic pressures are normal. 3. No hemodynamically significant valve disease. 4. No pericardial effusion. 3. ASCVD Per patient, at time of CHF diagnosis, was found to have had prior HI 4. Alcohol use disorder 5. Peripheral neuropathy, related to Etoh use 6. Genetic testing 04/2024 - Result: [employer]ancere[employer]or.comt-Expanded +RNAinsight Panel showed no pathogenic mutations were detected. HPI Dylan Micehle is seen in f/u of pancreatic cancer. The history is summarized above. On 04/22/24 he began therapy with gemcitabine/abraxane. Day 1 therapy was complicated by a significant rash. Because of this and the fact that he was doing better, we had planned to change therapy to mFolfirinox. Dylan is accompanied to clinic today by his sister Katherine. Katherine is a physical therapist. He was in the hospital earlier this week with abdominal pain and difficulty eating. He was given hydromorphone and IVF. He says he is doing a bit better. This seems to be primarily related to better control of pain. He has been taking oxycodone after meals and in the eveinng has been using hydromorphone. This has helped with the crampy abdominal pain. He is eating better and is sleeping better. He is eating at least two meals a day. Sometimes he adds a snack and is also taking 3 ensure per day. His weight is higher today. He is taking zenpep, 3 with meals and 1 with snacks. His energy level is fair. He has neuropathy in his feet which extends to his upper legs. He also has some in his hands. The skin rash has improved. 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 HENT: Head: Normocephalic and atraumatic. Mouth/Throat: Pharynx: No oropharyngeal exudate. Eyes: General: No scleral icterus. Cardiovascular: Rate and Rhythm: Normal rate and regular rhythm. Pulmonary: Effort: Pulmonary effort is normal. No respiratory distress. Breath sounds: No wheezing or rales. Abdominal: General: There is no distension. Palpations: There is no mass. Tenderness: There is no abdominal tenderness. There is no guarding. Musculoskeletal: General: No swelling. Lymphadenopathy: Cervical: No cervical adenopathy. Upper Body: Right upper body: No supraclavicular adenopathy. Left upper body: No supraclavicular adenopathy. Skin: General: Skin is warm and dry. Findings: No rash. Neurological: General: No focal deficit present. Mental Status: He is alert. Coordination: Coordination normal. Psychiatric: Mood and Affect: Mood normal. Labs: WBC/ANC - 4., Hgb/Hct - 12.3/37.4, Plts - 268,000. BUN/Cr - 7/.56. K - 3.9, Alb - 2.8.Alk phos - 130, AST/ALT - 54/71. Lytes and LFTs o/w unremarkable CA 19-9 04/20/23 166 04/12/24 168 PGX - no variants detected Assessment and Plan Dylan Michele is 54 yo, seen in f/u of pancreatic adenocarcinoma, locally advanced unresectable. His PMHx includes a h/o heart failure and heavy alcohol use. Beginning in September 2023, Efrain noted unintentional weight loss, nausea, vomiting, and poor appetite. He first sought medical attention in November 2023, during which a CT abdomen was performed, which was reportedly negative. When symptoms persisted, further work-up with colonoscopy, endoscopy, andrepeat CT abdomen was performed. Colonoscopy showed several polyps (biopsied), endoscopy was reportedly negative, and CT abdomen showed 5x8cm mass on the inferior head of the pancreas. CA-19 was alsoelevated, though we do not have this record. Since September, he reports 86lbs weight loss. He was [place] [facility] [place] with nausea, vomiting, poor PO intake, and recently identified pancreatic head mass on imaging. An EUS was performed and a mass was seen in the uncinate process of the pancreas. FNA showed adenocarcinoma with intact staining for MMR proteins. The mass was associated with duodenal obstruction and a duodenal stent was placed. His case was reviewed at [facility] on 04/12/24. Images were reviewed (CT a/p and CT chest). There is no evidence of distant metastatic disease. The primary tumor is considered locally advanced unresectabledue to vascular involvement (Dr. Ward had previously seen him in the hospital and agreed that it was unresectable and unlikely to be resectable in the future). The recommendation was for initial chemotherapy followed by restaging and consideration of radiation therapy if no evidence of disease progression. We met on 04/12/24 and reviewed the unresectable nature of the disease and that surgical resection is generally felt to be a necessary component of a potentially curative approach to therapy. Therefore, the goals of therapy are to extend time and maintain quality of life but treatment is not expected to be curative. We talked about systemic therapy options, including mFolfirinox and gemcitabine/abraxane. For many patients with good PS, our preference is generally for mFolfirinox. I was concerned about his PS andhis peripheral neuropathy. On 04/22/24 he began therapy with gemcitabine/abraxane. Day 1 therapy was complicated by a significant rash. Because of this and the fact that he was doing better, we had planned to change therapy to mFolfirinox. He met on 04/12/24 with our Genetic Counselor and blood was drawn for genetic testing and that is pending. We plan to begin therapy with mFolfrinox today with a 50% reduction of the oxaliplatin. I will alsoreduce the irinotecan dose and increase if tolerated. We will see him in two weeks. documented in this encounter Plan of Treatment Upcoming Encounters Date Type Department Care Team (Late st Contact Info) Description 05/20/2024 8:30 AM EDT Office Visit Hematology/Oncology at [address] [phone] Ministerio Kelly MD [facility] [place] [address] Katherine Guadarrama APRN [address] [place] [address] [place] [address] 05/20/2024 9:00 AM EDT Infusion Hematology Oncology at [address] [phone] 05/30/2024 1:00 PM EDT Tech [place] [address] Dena Graves 05/30/2024 4:00 PM EDT Office Visit [place] [phone] Derek Evans MD [facility] [place] [address] 06/03/2024 8:30 AM EDT Office Visit Hematology/Oncology at [address] [phone] Ministerio Kelly MD [facility] [place] [address] Katherine Guadarrama APR[address] HEMATOLOGY AND [place], [place] [id number] 06/03/2024 9:00 AM EDT Infusion Hematology Oncology at [address] [phone] documented as of this encounter Visit Diagnoses Diagnosis Malignant neoplasm of head of pancreas Upper abdominal pain Abdominal pain, other specified site documented in this encounter Care Teams Adhesive Sprayer Relationship Specialty Start Date End Date Cedric Rosenbaum DO [address] [place] [phone] PCP - General Family Medicine 03/29/24 documented as of this encounter
--- OUTSIDE RECORDS SUMMARY | 2024-05-14 12:55 | XMS_ITS | Encounter Summary ---
Author Organization [facility] Address [facility] [place] [address] Care Team Providers Care Snack Foods Mixer Operator Name Role Phone Cedric Rosenbaum DO Primary Care Provider [phone] Encounter Details Date Type Department Care Team (Late st Contact Info) Description 05/02/2024 Orders Only Hematology [place] [phone] Ministerio Kelly MD [facility] [place] [address] Social History Tobacco Use Types Packs/Day Years [...] from your doctor or pharmacy? Never 04/12/2024 [facility] Utilities Answer Date Recorded In the [...] any time in the past 12 m ont, were you homeless or living in a senior living (including now)? No 04/12/2024 DH IPV Inpatient [...] 8:30 AM EDT Office Visit Hematology/Oncology at [address] [phone] Ministerio Kelly MD [facility] [place] [address] Katherine Guadarrama APRN [address] [place] [address] HEMATOLOGY AND ONGOLOCY [place], [place] [address] 05/20/2024 9:00 AM EDT Infusion Hematology Oncology at [address] [phone] 05/30/2024 1:00 PM EDT Tech [place] [address] Vijaya Gravestanjennifer Dee 05/30/2024 4:00 PM EDT Office [place] [address] Derek Evans MD [facility] [place] [address] 06/03/2024 8:30 AM EDT Office Visit Hematology/Oncology at [address] [phone] Ministerio Kelly MD [facility] [place] [address] Katherine Guadarrama, [address] [place]OLOGY [place] [address] 06/03/2024 9:00 AM EDT Infusion Hematology Oncology at [address] [phone] documented as of this encounter Visit Diagnoses Not on filedocumented in this encounter Care Teams Snack Foods Mixer Operator Relationship Specialty Start Date End Date Cedric Rosenbaum DO [address] [place] [phone] PCP - General Family Medicine 03/29/24 documented as of this encounter
--- OUTSIDE RECORDS SUMMARY | 2024-05-14 12:55 | XMS_ITS | Encounter Summary ---
Author Organization [facility] [place] [address] Care Team Providers Care Bass Fisher Name Role Phone Cedric Rosenbaum DO Primary Care Provider [phone] Encounter Details Date Type Department Care Team (Latest Contact Info) Description 05/02/2024 Travel Social History Tobacco Use Types Packs/Day Years [...] from your doctor or pharmacy? Never 04/12/2024 [facility] Utilities Answer Date Recorded In the past 12 months has e [employer], gas, oil, or water [employer] threatened to shut off services in your [...] No 04/12/2024 Housing Stability Vital Sign Answer Mkie e Recorded In the last 12 months, was t here a time when you were not able to pay the mortgage or rent on time? No 04/12/2024 In the past 12 months, how m any times have you moved where you were living? 0 04/12/2024 At any time in the past 12 m onths, were you homeless or living in a custodial (including now)? No 04/12/2024 DH IPV Inpatient [...] 8:30 AM EDT Office Visit Hematology/Oncology at [address] [phone] Ministerio Kelly MD [facility] [place] [address] Katherine Guadarrama APRN [address] [place] [address] HEMATOLOGY [place] [address] 05/20/2024 9:00 AM EDT Infusion Hematology Oncology at [address] [phone] 05/30/2024 1:00 PM EDT Tech [place] [phone] Dena Graves 05/30/2024 4:00 PM EDT Office Visit [place] [address] Derek Evans MD [facility] [place] [address] 06/03/2024 8:30 AM EDT Office Visit Hematology/Oncology at [address] [phone] Ministerio Kelly MD [facility] [place] [address] Katherine Guadarrama WIND TECHNICIAN [address] [place] [address] DR HEMATOLOGY AND ONGOLOCY [place], [place] [phone] 06/03/2024 9:00 AM EDT Infusion Hematology Oncology at [address] [phone] documented as of this encounter Visit Diagnoses Not on filedocumented in this encounter Care Teams Bass Fisher Relationship Specialty Start Date End Date Cedric Rosenbaum DO [address] [place] [phone] PCP - General Family Medicine 03/29/24 documented as of this encounter
--- OUTSIDE RECORDS SUMMARY | 2024-05-14 12:55 | XMS_ITS | Encounter Summary ---
Author Organization [facility] [place] [address] Care Team Providers Care Oil [employer] Services Dispatcher Name Role Phone Cedric Rosenbaum DO Primary Care Provider [phone] Encounter Details Date Type Department Care Team (Latest Contact Info) Description 05/06/2024 Travel Social History Tobacco Use Types Packs/Day [...] from your doctor or pharmacy? Never 04/12/2024 [facility] Utilities Answer Date Recorded In the past 12 months has e [employer], gas, oil, or water [employer] threatened to shut off services in your [...] were you homeless or living in a long-term (including now)? No 04/12/2024 DH IPV Inpatient [...] 8:30 AM EDT Office Visit Hematology/Oncology at [address] [phone] Ministerio Kelly MD [facility] [place] [address] Katherine Guadarrama APRN [address] [place] [address] HEMATOLOGY [place] [address] 05/20/2024 9:00 AM EDT Infusion Hematology Oncology at [address] [phone] 05/30/2024 1:00 PM EDT Tech [place] [phone] Dena Graves 05/30/2024 4:00 PM EDT Office [place] [address] Derek Evans MD [facility] [place] [address] 06/03/2024 8:30 AM EDT Office Visit Hematology/Oncology at [address] [phone] Ministerio Kelly MD [facility] [place] [address] Katherine Guadarrama SUPERCALENDER OPERATOR [address] [place] [address] DR HEMATOLOGY AND ONGOLOCY [place], [place] [phone] 06/03/2024 9:00 AM EDT Infusion Hematology Oncology at [address] [phone] documented as of this encounter Visit Diagnoses Not on filedocumented in this encounter Care Teams [employer] Services Dispatcher Relationship Specialty Start Date End Date Cedric Rosenbaum DO [address] [place] [phone] PCP - General Family Medicine 03/29/24 documented as of this encounter
--- OUTSIDE RECORDS SUMMARY | 2024-05-14 12:55 | XMS_ITS | Clinical Summary ---
Author Organization [facility] Address [facility] [place] [address] Care Team Providers Care Database Technician Name Role Phone Cedric Rosenbaum DO Primary Care Provider [phone] Allergies Active Allergy Reactions Criticality Noted Date Comments Lactose 03/29/2024 Nsaids (Non-Steroidal Anti-Inflammatory Drug) Other (See Comments) Medium 03/29/2024 Prednisone 03/29/2024 Medications Medication Sig Dispensed Refills Start Date End Date Status carvediloL (Coreg) 6.25 mg tablet Take 6.25 mg by mouth 2 times daily (with meals). Active alum-mag hydroxide-simeth (Maalox) 200-200-20 mg/5 mL Suspension Take 10 mLs by mouth 3 times daily as needed. 355 mL 04/06/2024 Active potassium chloride (Klor-Con, K-Tab) 20 mEq ER tablet Take 1 tablet by mouth daily. 10 tablet 04/06/2024 Active ondansetron ODT (Zofran-ODT) 4 mg disintegrating tablet Take 1 tablet by mouth every 8 hours as needed for Nausea. 20 tablet 04/06/2024 Active Additional Information Patient not taking.Reported on 04/12/2024 pantoprazole EC (Protonix) [address] tablet Take 1 tablet by mouth daily. 90 tablet 3 04/07/2024 Active Additional Information Patient not taking.Reported on 04/29/2024 simethicone (Mylicon) 40 mg/0.6 mL Drops, Suspension Take 0.6 mLs by mouth 4 times daily. 30 mL 04/06/2024 Active jjsqub-tsqafmxx-qvjq ase (Zenpep) 25,000-79,000- 105,[address] capsule Take 2 capsule by mouth with meals three times a day and 1 capsule by mouth with snacks 2-3 times a day (max 9/day) 270 capsule 11 04/06/2024 Active high protein nutritional supplement, lactose-free (Ensure) Liquid Take 1 Bottle by mouth 3 times daily. 237 mL 3 04/12/2024 Active colchicine (Colcrys) 0.6 mg tablet Take 0.6 mg by mouth daily. Active hydrocortisone 2.5 % CreamIndications:Ski n rash Apply topically 2 times daily. 30 g 04/29/2024 Active metoclopramide (Reglan) 10 mg tabletIndications:Ch emotherapy-induced nausea Take 1 tablet by mouth 4 times daily. 40 tablet 04/29/2024 Active HYDROmorphone (Dilaudid) 2 mg tabletIndications:Ma lignant neoplasm of head of pancreas,Upper abdominal pain Take 1-2 tablets by mouth every 3 hours as needed for Pain. 90 tablet 05/06/2024 Active Active Problems Problem Noted Date Diagnosed Date Malignant neoplasm of head of pancreas Nausea & vomiting 03/29/2024 Encounters Date Type Department Care Team Description 05/14/2024 Telephone Hematology Oncology Level 1 [place] [phone] Migdalia Cordero MD 05/09/2024 Telephone [place] [phone] Unruly Pope 05/06/2024 9:00 AM EDT Infusion Hematology Oncology at [address] [phone] Malignant neoplasm of head of pancreas 05/06/2024 8:30 AM EDT Office Visit Hematology/Oncol ogy at [address] [phone] iMnisterio Kelly MD LaRoza, Stephanie A, APRN Malignant neoplasm of head of pancreas; Upper abdominal pain 05/06/2024 Travel 05/04/2024 2:00 PM EDT Telephone Hematology/Oncol ogy at [address] [phone] 05/02/2024 8:35 PM EDT Ancillary [place] [address] Ministerio Kelly MD 05/02/2024 Telephone Hematology Oncology Level 1 [place] [phone] Armin Nogueira MD 05/02/2024 Orders Only Hematology [place] [phone] Ministerio Kelly MD 05/02/2024 Telephone Hematology/Oncol ogy at [address] [phone] Arlet Donald RN Other (Ongoing abdominal cramping and pain) 05/02/2024 Travel 05/02/2024 Telephone Hematology/Oncol ogy at [address] [phone] Heidi Glynn, SCHOOL CURRICULUM DEVELOPER Other (Financial assistance) 04/29/2024 10:00 AM EDT Clinical Support Hematology/Oncol ogy at [address] [phone] Blanche Peng, [place] Malignant neoplasm of head of pancreas 04/29/2024 9:30 AM EDT Infusion Hematology Oncology at [address] [phone] Hypokalemia 04/29/2024 9:00 AM EDT Office Visit Hematology/Oncol ogy at [address] [phone] Ministerio Kelly MD LaRoza, Stephanie A, APRN Malignant neoplasm of head of pancreas; Hypokalemia; Skin rash; Chemotherapy-induc ed nausea 04/29/2024 Travel 04/28/2024 Telephone Hematology/Oncol ogy at [address] [phone] Iván De Luna RN Other 04/28/2024 Travel 04/27/2024 Telephone Hematology/Oncol ogy at [address] [phone] Iván De Luna RN Follow-up (S/p ED visit ) 04/26/2024 5:42 PM EDT - 04/27/2024 8:22 AM EDT [place] [phone] Kay Bocanegra MD Brooks, MD Ravi Woodruff Shankar S, MD Abdominal distension Discharge Disposition: Home 04/26/2024 Telephone [place]ematology [place] [phone] Alan Covarrubias V, [facility] Results 04/26/2024 Telephone Hematology/Oncol ogy at [address] [phone] Iván De Luna RN Bloated; Dehydration 04/26/2024 Telephone Hematology/Oncol ogy at [address] [phone] Heidi Glynn, SCHOOL CURRICULUM DEVELOPER Other (Community/financi al resources) 04/25/2024 Telephone Hematology/Oncol ogy at [address] [phone] Arlet Donald RN Follow-up (Post chemo call) 04/25/2024 Travel 04/25/2024 Telephone Hematology/Oncol ogy at [address] [phone] Heidi Glynn, SCHOOL CUR[employer]ICULUM DEVELOPER Other (Outreach re financial resources) 04/22/2024 10:30 AM EDT Clinical Support Hematology/Oncol ogy at [address] [phone] Blanche Peng, [place] Malignant neoplasm of head of pancreas 04/22/2024 9:00 AM EDT Infusion Hematology Oncology at [address] [phone] Malignant neoplasm of head of pancreas 04/22/2024 8:30 AM EDT Office Visit Hematology/Oncol ogy at [address] [phone] Ministerio Kelly MD LaRoza, Stephanie A, APRN Malignant neoplasm of head of pancreas 04/22/2024 Travel 04/20/2024 Orders Only Hematology [place] [address] Ministerio Kelly MD 04/19/2024 Telephone Hematology/Oncol ogy at [address] [phone] 04/18/2024 Notes Only Hematology [place] [address] Anna Almaraz, [facility] 04/15/2024 11:34 AM EDT - 04/15/2024 11:59 PM EDT Hospital [place] [address] Ministerio Kelly MD Malignant neoplasm of head of pancreas Discharge Disposition: Home 04/15/2024 Travel 2024 Travel 04/12/2024 12:34 PM EDT - 04/12/2024 11:59 PM EDT Hospital Encounter [place]ematology [place] [address] Malignant neoplasm of head of pancreas Discharge Disposition: Home 04/12/2024 12:00 PM EDT Office Visit Hematology [place] [address] Alan Covarrubias LGC Malignant neoplasm of head of pancreas 04/12/2024 11:00 AM EDT Office Visit Hematology [place] [address] Ministerio Kelly MD Malignant neoplasm of head of pancreas; Moderate protein-calorie malnutrition 04/12/2024 10:00 AM EDT Clinical Support Hematology and Oncology at [place] [phone] Mihaela Martin, [place] Malignant neoplasm of head of pancreas 04/12/2024 Refill Hematology and Oncology at [place] [phone] Kenya Abebe, RN Moderate protein-calorie malnutrition 04/12/2024 Notes Only Radiology at [place] [phone] Yaima Arredondo PA 04/12/2024 Patient Outreach Hematology and Oncology at [place] [phone] Abiodun Zimmerman RN Establish Care 04/12/2024 Orders Only Hematology and Oncology at [place] [phone] Alan Covarrubias V, C Malignant neoplasm of head of pancreas 04/12/2024 Refill Hematology and Oncology at [place] [phone] Kenya Abebe, SAM 04/12/2024 Travel 04/12/2024 Multidisciplinary Ca re Committee Gastroenterology at [place] [phone] Alan Silva MD 04/12/2024 Notes Only Gastroenterology at [place] [phone] Alan Silva MD 04/12/2024 Multidisciplinary Ca re Committee Hematology and Oncology at [place] [phone] Fernando Smith MD 04/06/2024 Notes Only Hematology and Oncology at [place] [phone] 04/06/2024 Orders Only General Surgery at [place] [phone] Rita Ward MD 04/06/2024 Orders Only General Surgery at [place] [address] Rita Ward MD 03/31/2024 5:10 PM EDT Ancillary Procedure Radiology Library at [place] [phone] 03/31/2024 11:20 AM EDT Ancillary Procedure Gastroenterology at [address] 03/31/2024 10:33 AM EDT Anesthesia Event Gastroenterology at [place] [address] Pj Caraballo MD 03/31/2024 10:30 AM EDT - 03/31/2024 11:30 AM EDT Surgery Gastroenterology at [place] [phone] Eulogio Marcos MD EGD, W US GUIDED FINE NEEDLE ASPIRATION/BIOPSY (WRVU 4.16) 03/30/2024 Telephone Hospitalist [place] [phone] Marisabel Granados CMA Request For Record ([facility]) 03/30/2024 Transcribe Orders eDH Incoming Referrals [phone] David Pierce MD Other abnormal tumor markers 03/30/2024 Transcribe Orders eDH Incoming Referrals [phone] Diamond Oconnor APRN Acute abdominal pain; Pancreatic mass 03/29/2024 4:55 PM EDT - 04/06/2024 12:30 PM EDT Hospital Encounter Hematology/Oncol ogy Unit Level 1 Wing D at [place] [phone] Bernarda Gomez MD Moeller, John, MD Guhjjar, Muhammad Khurram, MD Singh, Gurbakhshish, MD Wang, Susan S, MD Pancreatic mass Discharge Disposition: Home 03/29/2024 Travel 03/25/2024 Ancillary [place] [address] 03/11/2024 12:05 AM EDT Ancillary [place] [address] 03/11/2024 Ancillary [place] [address] from Last 3 Months Family History * Patient is adopted Relation Status Comments Son 1 Alive Son 2 Alive Social History Tobacco Use Types Packs/Day Years [...] from your doctor or pharmacy? Never 04/12/2024 [facility] Utilities Answer Date Recorded In the [...] were you homeless or living in a chcf (including now)? No 04/12/2024 DH IPV Inpatient [...] on file Sexual Orientation Not on file Last Filed Vital Signs Vital Sign Reading [...] Mass Index 37.48 05/06/2024 8:21 AM EDT Plan of Treatment Upcoming Encounters Date Type Department Care Team (Late st Contact Info) Description 05/20/2024 8:30 AM EDT Office Visit Hematology/Oncology at [address] [phone] Ministerio Kelly MD [facility] [place] [address] Katherine Guadarrama APRN [address] [place] [address] [place], [place] [phone] 05/20/2024 9:00 AM EDT Infusion Hematology Oncology at [address] [phone] 05/30/2024 1:00 PM EDT Tech [place] [address] Dena Graves 05/30/2024 4:00 PM EDT Office [place] [phone] Derek Evans MD [facility] [place] [address] 06/03/2024 8:30 AM EDT Office Visit Hematology/Oncology at [address] [phone] Ministerio Kelly MD [facility] [place] [address] Katherine Guadarrama APR[address] [place] [phone] 06/03/2024 9:00 AM EDT Infusion Hematology Oncology at [address] [phone] Health Maintenance Due Date Last Done Comments CT Colonography 1972 Colonoscopy 1972 Colorectal Cancer Screening 1972 FIT DNA 1972 FIT 1972 Sigmoidoscopy (10 year) with FIT yearly 1972 Sigmoidoscopy 1972 HIV screen 1990 Hepatitis C Screening 1990 Lipid Screening 1990 Hepatitis B vaccine (0-59 yrs) (1) 1991 Tdap adult 1991 Tetanus vaccine 1991 Zoster vaccine (1 of 2) 2022 Covid-19 Vaccine (1 - 2022-2 4 season) 2023 Influenza (Flu) vaccine (1 o f 1 - Influenza standard series) 07/03/2024 Diabetes Screening (HgbA1C o r Glucose) 04/26/2027 04/26/2024, 04/12/2024, 04/06/2024, Additional history exists Medical Devices Implanted Type Area Shade Cloth Finisher Device Identifier Shelf Expiration Date Model / Serial / Lot Stent Duodenal [id number] 9cm Over The Wire Self Expanding ([id number]) - [id number] Implanted:Qty : 1 on 03/31/2024 by Eulogio Marcos MD at [facility] IMPLANTS N/A: Esophagus [employer] - [employer] 11/09/2025 [id number] / / [id number] Mediport-04/15 Implanted:Qty : 1 on 04/15/2024 by Willie Bernstein MD [facility] Left: Chest Wall [employer] - MEDCOMP IN / / [id number] Procedures Procedure Name Priority Date/Time Associated Diagnosis Comments LAB SCAN 05/05/2024 12:00 AM EDT LAB SCAN 05/05/2024 12:00 AM EDT FILM LIBRARY STORAGE ONLY CT ABDOMEN AND PELVIS Routine 05/02/2024 8:[address] ABDOMEN AND PELVIS W CONTRAST STAT 04/26/2024 8:01 PM EDT GOLD TUBE HOLD STAT 04/26/2024 6:38 PM EDT BLUE TUBE HOLD STAT 04/26/2024 6:38 PM EDT DIFFERENTIAL, AUTOMATED STAT 04/26/2024 6:38 PM EDT HEMOGRAM STAT 04/26/2024 6:38 PM EDT HC LIPASE STAT 04/26/2024 6:38 PM EDT HEPATIC FUNCTION PANEL STAT 6:38 PM EDT BASIC METABOLIC PANEL (NON-FASTING) STAT 04/26/2024 6:38 PM EDT HC CBC,PLT & AUTO DIFF STAT 6:38 PM EDT LAB SCAN 04/22/2024 12:00 AM EDT IR MEDIPORT PLACEMENT Routine 04/15/2024 1:00 PM EDT Malignant neoplasm of head of pancreas DIFFERENTIAL, AUTOMATED Routine 04/12/2024 12:44 PM EDT Malignant neoplasm of head of pancreas HEMOGRAM Routine 04/12/2024 12:44 PM EDT Malignant neoplasm of head of pancreas PGX ONCOLOGY Routine 04/12/2024 12:44 PM EDT Malignant neoplasm of head of pancreas HC CARBOHYDRATE ANTIGEN 19-9 Routine 04/12/2024 12:44 PM EDT Malignant neoplasm of head of pancreas COMPREHENSIVE METABOLIC PANEL (NON-FASTING) Routine 04/12/2024 12:44 PM EDT Malignant neoplasm of head of pancreas HC CBC,PLT & AUTO DIFF Routine 12:44 PM EDT Malignant neoplasm of head of pancreas RESEARCH VENIPUNCTURE Routine 04/12/2024 12:44 PM EDT Malignant neoplasm of head of pancreas LAVENDER TUBE HOLD Routine 04/06/2024 3: 59 AM EDT BASIC METABOLIC PANEL (NON-FASTING) Routine 04/06/2024 3:59 AM EDT LAVENDER TUBE HOLD Routine 04/05/2024 4: 56 AM EDT BASIC METABOLIC PANEL (NON-FASTING) Routine 04/05/2024 4:56 AM EDT LAVENDER TUBE HOLD Routine 04/04/2024 5: 01 AM EDT BASIC METABOLIC PANEL (NON-FASTING) Routine 04/04/2024 5:01 AM EDT DIFFERENTIAL, AUTOMATED Routine 04/03/2024 8:15 AM EDT HEMOGRAM Routine 04/03/2024 8:15 AM EDT HC CBC,PLT & AUTO DIFF Routine 8:15 AM EDT HC MAGNESIUM, SERUM Routine 04/03/2024 8 :15 AM EDT HC PHOSPHORUS, SERUM Routine 04/03/2024 8:15 AM EDT BASIC METABOLIC PANEL (NON-FASTING) Routine 04/03/2024 8:15 AM EDT MAGNESIUM Routine 04/02/2024 4:05 PM EDT BASIC METABOLIC PANEL (NON-FASTING) Routine 04/02/2024 4:05 PM EDT XR ABDOMEN 1 VIEW FOR CONTRAST CHALLENGE Routine 04/02/2024 10:54 AM EDT XR ABDOMEN 1 VIEW FOR CONTRAST CHALLENGE Routine 04/02/2024 5:37 AM EDT DIFFERENTIAL, AUTOMATED Routine 04/02/2024 3:28 AM EDT HEMOGRAM Routine 04/02/2024 3:28 AM EDT COMPREHENSIVE METABOLIC PANEL (NON-FASTING) Routine 04/02/2024 3:28 AM EDT HC CBC,PLT & AUTO DIFF Routine 3:28 AM EDT XR ABDOMEN 1 VIEW FOR CONTRAST CHALLENGE Routine 04/01/2024 11:15 PM EDT XR ABDOMEN 1 VIEW FOR CONTRAST CHALLENGE Routine 04/01/2024 4:58 PM EDT HC PHOSPHORUS, SERUM Routine 04/01/2024 4:07 PM EDT HC MAGNESIUM, SERUM Routine 04/01/2024 4 :07 PM EDT BASIC METABOLIC PANEL (NON-FASTING) Routine 04/01/2024 4:07 PM EDT DIFFERENTIAL, AUTOMATED Routine 04/01/2024 4:51 AM EDT HEMOGRAM Routine 04/01/2024 4:51 AM EDT COMPREHENSIVE METABOLIC PANEL (NON-FASTING) Routine 04/01/2024 4:51 AM EDT HC CBC,PLT & AUTO DIFF Routine 4:[address] CHEST WO CONTRAST (GENERIC) Routine 03/31/2024 5:35 PM EDT REQUEST FOR 2ND READ CT ABDOMEN AND PELVIS Routine 03/31/2024 5:05 PM EDT XR ERCP Routine 03/31/2024 12:37 PM EDT NON-PATIENT REGISTRATION SPECIALIST FINAL REPORT Routine 03/31/2024 11:12 AM EDT CYTOPATHOLOGY NON-GYNECOLOGICAL Routine 03/31/2024 11:12 AM EDT Edg Flexible Transoral Endoscopic Stent Placement W/Wire & Dilation(38595) 03/31/2024 10:33 AM EDT pancreas head mass Fluoroscopy Exam Up To 1 Hr Phy Or Oth th Care Prov ([id number]) 03/31/2024 10:33 AM EDT pancreas head mass Upgi Endoscopy W/Us Fn Bx ([id number]) 03/31/2024 10:33 AM EDT pancreas head mass UPPER EUS-ENDOSCOPIC ULTRASOUND Routine 03/31/2024 9:53 AM EDT PHOSPHORUS Routine 03/31/2024 4:09 AM EDT MAGNESIUM Routine 03/31/2024 4:09 AM EDT DIFFERENTIAL, AUTOMATED Routine 03/31/2024 4:09 AM EDT HEMOGRAM Routine 03/31/2024 4:09 AM EDT COMPREHENSIVE METABOLIC PANEL (NON-FASTING) Routine 03/31/2024 4:09 AM EDT HC VENIPUNCTURE Routine 03/31/2024 4:09 AM EDT URINALYSIS MICROSCOPIC EXAM STAT 03/30/2024 4:45 AM EDT URINALYSIS WITH REFLEX CULTURE STAT 03/30/2024 4:45 AM EDT CEA Routine 03/30/2024 4:10 AM EDT CARBOHYDRATE ANTIGEN 19-9 Routine 03/30/2024 4:10 AM EDT DIFFERENTIAL, AUTOMATED Routine 03/30/2024 4:10 AM EDT HEMOGRAM Routine 03/30/2024 4:10 AM EDT HC PREALBUMIN, SERUM Routine 03/30/2024 4:10 AM EDT HC HEMOGLOBIN A1C STAT 03/30/2024 4:1 0 AM EDT HC PHOSPHORUS, SERUM Routine 03/30/2024 4:10 AM EDT HC MAGNESIUM, SERUM Routine 03/30/2024 4 :10 AM EDT BASIC METABOLIC PANEL (NON-FASTING) Routine 03/30/2024 4:10 AM EDT HC VENIPUNCTURE Routine 03/30/2024 4:10 AM EDT XR CHEST ONE VIEW STAT 03/29/2024 9:3 4 PM EDT PRO-BRAIN NATRIURETIC PEPTIDE STAT 03/29/2024 4:32 PM EDT PHOSPHORUS STAT 03/29/2024 4:32 PM EDT MAGNESIUM STAT 03/29/2024 4:32 PM EDT GOLD TUBE HOLD STAT 03/29/2024 4:32 PM EDT BLUE TUBE HOLD STAT 03/29/2024 4:32 PM EDT DIFFERENTIAL, AUTOMATED STAT 03/29/2024 4:32 PM EDT HEMOGRAM STAT 03/29/2024 4:32 PM EDT HC LIPASE STAT 03/29/2024 4:32 PM EDT COMPREHENSIVE METABOLIC PANEL (NON-FASTING) STAT 03/29/2024 4:32 PM EDT HC CBC,PLT & AUTO DIFF STAT 4:32 PM EDT FILM LIBRARY STORAGE ONLY CT ABDOMEN AND PELVIS STAT 03/25/2024 12:00 AM EDT FILM LIBRARY STORAGE ONLY ULTRASOUND STUDY STAT 03/11/2024 12:05 AM EDT FILM LIBRARY STORAGE ONLY CT CHEST STAT 03/11/2024 12:00 AM EDT ULTRASOUND SCAN (SCAN) 12:00 AM EDT from Last 3 Months Results * Scan Doc: Lab (05/05/2024 12:00 AM EDT) Only the most recent of3 resultswithin the time period is included. Narrative 05/05/2024 12:00 AM EDT Ordered by an unspecified provider. Scanning Provider MEDIA MGR SCAN EXT O RDR/RSLT * Film Library- Storage Only CT Abdomen & Pelvis (05/02/2024 8:31 PM EDT) Only the most recent of2 resultswithin the time period is included. Narrative RAD - 05/02/2024 8:31 PM EDT This exam is auto-finalizing. It's purpose is for storage only. Ministerio Kelly MD IMG FILM LIBRARY ORD ERABLES [facility] [place] * CT Abdomen & Pelvis w Contrast (04/26/2024 8:01 PM EDT) WORKSTATION ID [id number] [facility] [facility] Anatomical Region Laterality Modality Abdomen, Pelvis Computed Tomogra phy Impressions 04/26/2024 9:16 PM EDT 1. ??Stented and patent third and fourth duodenum. No evidence of bowel obstruction. 2. ??No significant change in approximately 5.9 cm ill-defined pancreatic head mass with vascular encasement as above. 3. ??No acute intra-abdominal process. 4. ??Small fat-containing umbilical hernia with mild stranding in the herniated fat. Correlate clinically with any symptoms referable to the umbilicus or concern for incarceration. Preliminary report signed by: Hubert Hdez at 04/26/2024 8:57 PM I have personally reviewed the image(s) and the resident's interpretation and agree with the findings, Jw Amin MD at 04/26/2024 9:16 PM Thank you for letting us participate in the care of this patient. ??If you are a health care provider and have any questions regarding this report, please contact the number below. ??For patients who have questions please contact the health childcare administrator that requested your imaging first. ? Narrative 04/26/2024 9:16 PM EDT EXAMINATION: CT ABDOMEN AND PELVIS W CONTRAST CLINICAL HISTORY: upper abdominal pain and bloating with history of pancreatic cancer s//p duodenal stent TECHNIQUE: Helical CT of the abdomen and pelvis following the intravenous administration of contrast. Administered 120.0 ml of OMNIPAQUE 350.00 mg/ml. Oral contrast was not administered. COMPARISON: CT abdomen and pelvis 03/25/2024 FINDINGS: Lower chest: Linear posterior right lung base scar. Liver: Normal size and attenuation without lesions. Bile ducts: Nondilated. Gallbladder: No calcified gallstones. Normal caliber wall. Pancreas: Unchanged ill-defined hypoattenuating 5.4 x 5.9 cm pancreatic head mass fully encasing the SMA and SMV and abutting the superior aspect of the stented third portion of the duodenum. The lesion also abuts the anterior margin of the left renal vein, similar to prior. Nondilated main pancreatic duct. Spleen: Normal. Adrenals: Normal. Kidneys: Symmetric enhancement. No collecting system dilation. Urinary Bladder: Normal. Vasculature: No abdominal aortic aneurysm. Occluded proximal SMV. Attenuation/narrowing of the portal confluence, unchanged. Splenic and portal veins otherwise patent. Replaced hepatic artery arising from SMA. Lymph Nodes: Enlarged portacaval left measuring 1.5 cm in short axis, unchanged. Mildly sally appearance of the mesenteric root, unchanged. Bowel: Stented third and fourth portion of the duodenum abutting the inferior aspect of the pancreatic tumor as described above. Stomach and duodenum are nondilated. No dilated bowel loops. No bowel wall thickening. Incidental small 8 mm lipoma in the wall the proximal sigmoid colon, unchanged. Normal appendix. Peritoneum and retroperitoneum: Unchanged mesenteric stranding most pronounced surrounding the pancreatic tumor extending along the right anterior pararenal fascia. No free fluid or loculated fluid collection. No pneumoperitoneum. Abdominal wall: Small fat-containing umbilical hernia. Mild stranding of the herniated fat. Correlate clinically with any symptoms referable to the umbilicus. Reproductive organs: Normal. Osseous structures: No suspicious lesions. No acute fracture. Procedure Note Jw Amin MD - 04/26/2024 EXAMINATION: CT ABDOMEN AND PELVIS W CONTRAST CLINICAL HISTORY: upper abdominal pain and bloating with history ofpancreatic cancer s//p duodenal stent TECHNIQUE: Helical CT of the abdomen and pelvis following theintravenous administration of contrast. Administered 120.0 ml of OMNIPAQUE 350.00mg/ml. Oral contrast was not administered. COMPARISON: CT abdomen and pelvis 03/25/2024 FINDINGS: Lower chest: Linear posterior right lung base scar. Liver: Normal size and attenuation without lesions. Bile ducts: Nondilated. Gallbladder: No calcified gallstones. Normal caliber wall. Pancreas: Unchanged ill-defined hypoattenuating 5.4 x 5.9 cm pancreatichead mass fully encasing the SMA and SMV and abutting the superior aspect ofthe stented third portion of the duodenum. The lesion also abuts the anteriormargin of the left renal vein, similar to prior. Nondilated main pancreaticduct. Spleen: Normal. Adrenals: Normal. Kidneys: Symmetric enhancement. No collecting system dilation. Urinary Bladder: Normal. Vasculature: No abdominal aortic aneurysm. Occluded proximal SMV. Attenuation/narrowing of the portal confluence, unchanged. Splenic andportal veins otherwise patent. Replaced hepatic artery arising from SMA. Lymph Nodes: Enlarged portacaval left measuring 1.5 cm in short axis,unchanged. Mildly sally appearance of the mesenteric root, unchanged. Bowel: Stented third and fourth portion of the duodenum abutting theinferior aspect of the pancreatic tumor as described above. Stomach and duodenumare nondilated. No dilated bowel loops. No bowel wall thickening. Incidentalsmall 8 mm lipoma in the wall the proximal sigmoid colon, unchanged. Normalappendix. Peritoneum and retroperitoneum: Unchanged mesenteric stranding mostpronounced surrounding the pancreatic tumor extending along the right anteriorpararenal fascia. No free fluid or loculated fluid collection. No pneumoperitoneum. Abdominal wall: Small fat-containing umbilical hernia. Mild stranding ofthe herniated fat. Correlate clinically with any symptoms referable to the umbilicus. Reproductive organs: Normal. Osseous structures: No suspicious lesions. No acute fracture. IMPRESSION 1. Stented and patent third and fourth duodenum. No evidence of bowel obstruction. 2. No significant change in approximately 5.9 cm ill-defined pancreatichead mass with vascular encasement as above. 3. No acute intra-abdominal process. 4. Small fat-containing umbilical hernia with mild stranding in theherniated fat. Correlate clinically with any symptoms referable to the umbilicusor concern for incarceration. Preliminary report signed by: Hubert Hdez at 04/26/2024 8:57PM I have personally reviewed the image(s) and the resident's interpretationand agree with the findings, Jw Amin MD at 04/26/2024 9:16 PM Thank you for letting us participate in the care of this patient. If youare a health care provider and have any questions regarding this report,please contact the number below. For patients who have questions please contactthe health childcare administrator that requested your imaging first. Kay Bocanegra MD IMG CT ORDERABLES * (ABNORMAL) Hemogram (04/26/2024 6:38 PM EDT) Only the most recent of8 resultswithin the time period is included. WBC 5.5 4.0 - 9.5 x10(3)/[facility] RBC 3.87(L) 4.58 - 5.54 x10(6)/[facility] Hemoglobin 11.2(L) 13.7 - 16.5 g/dL [facility] Hematocrit 32.9(L) 40.5 - 48.5 % [facility] MCV 85.0 82.9 - 93.1 fL [facility] MCH 28.9 27.5 - 32.1 pg [facility] MCHC 34.0 32.0 - 35.7 g/dL [facility] Platelets 180 145 - 357 x10(3)/[facility] RDWSD 39.8 36.0 - 45.0 fL [facility] RDWCV 12.8 11.4 - 13.8 % [facility] MPV 8.9 7.6 - 12.9 fL [facility] nRBC % Auto 0.0 % [facility] nRBC Abs Auto 0.000 0.000 - 0.000 x10(3)/mcL [facility] Blood 04/26/2024 6:38 PM EDT 04/26/2024 6:51 PM EDT Narrative Resulting Agency Comment Spec In Lab Odalys Robin DO HEMATOLOGY ORDERABLE S [facility] [place] [address] * (ABNORMAL) Differential, Automated (04/26/2024 6:38 PM EDT) Only the most recent of8 resultswithin the time period is included. Neutrophils % 88.9 % [facility] Neutr Abs (ANC) 4.90 1.70 - 6.10 x10(3)/[facility] Lymphocytes % 7.8 % [facility] Lymphocytes Abs 0.4(L) 0.9 - 3.2 x10(3)/[facility] Monocytes % 0.9 % [facility] Monocyte Abs 0.0(L) 0.3 - 0.9 x10(3)/[facility] Eosinophils % 1.1 % [facility] Eosinophils Abs 0.1 0.0 - 0.4 x10(3)/[facility] Basophils % 0.2 % [facility] Basophils Abs 0.0 0.0 - 0.1 x10(3)/[facility] Immature Gran % 1.10 % [facility] Comment: Immature granulocytes(IG's)percentage and absolute count will include metamyelocytes, myelocytes, and promyelocytes. Blood smears from CBCs yielding IG's will be scanned manually for concordance. If this scan disagrees with the automated IG or if promyelocytes are noted, a manual differential will be performed. [place] Gran Abs 0.06(H) 0.00 - 0.04 x10(3)/mc L [facility] Blood 04/26/2024 6:38 PM EDT 04/26/2024 6:51 PM EDT Narrative Resulting Agency Comment Spec In Lab Odalys Leila Lobito DO HEMATOLOGY ORDERABLE S Performing Organization Address City/[facility]/ZIP Co de Phone Number [facility] [place] [address] * Gold Tube HOLD (04/26/2024 6:38 PM EDT) Only the most recent of2 resultswithin the time period is included. Gold Hold Sample in lab. [facility] Blood Venous Draw / Unknown 04/26/2024 6:38 PM EDT 04/26/2024 6:52 PM EDT Odalys L Lobito DO CHEMISTRY ORDERABLES Performing Organization Address [facility] Co de Phone Number [facility] [place] [address] * Blue Tube HOLD (04/26/2024 6:38 PM EDT) Only the most recent of2 resultswithin the time period is included. Blue Hold Sample in lab. [facility] Blood Venous Draw / Unknown 04/26/2024 6:38 PM EDT 04/26/2024 6:52 PM EDT Odalys L Lobito DO HEMATOLOGY ORDERABLE S Performing Organization Address City/[facility] Co de Phone Number [facility] [place] [address] * (ABNORMAL) Lipase (04/26/2024 6:38 PM EDT) Only the most recent of2 resultswithin the time period is included. Lipase 78(H) 0 - 60 unit/L [facility] Blood 04/26/2024 6:38 PM EDT 04/26/2024 6:51 PM EDT Narrative Resulting Agency Comment Spec In Lab Kay Bocanegra MD CHEMISTRY ORDERABLES Performing Organization Address [facility] Co de Phone Number [facility] [place] [address] * (ABNORMAL) Hepatic Function Panel (04/26/2024 6:38 PM EDT) [facility] Total Protein 6.3 6.1 - 8.0 g/dL [facility] Albumin 3.1(L) 3.2 - 5.2 g/dL [facility] AST 32 0 - 39 unit/L [facility] ALT 24 0 - 55 unit/L [facility] Alk Phos 141(H) 40 - 130 unit/L [facility] Total Bilirubin 1.4(H) 0.2 - 1.3 mg/dL [facility] Bili, Direct 0.9(H) 0.0 - 0.3 mg/dL [facility] Blood 04/26/2024 6:38 PM EDT 04/26/2024 6:51 PM EDT Narrative Resulting Agency Comment Spec In Lab Kay Bocanegra MD CHEMISTRY ORDERABLES Performing Organization Address [facility] Co de Phone Number [facility] [place] [address] * (ABNORMAL) Basic Metabolic Panel (non-fasting) (04/26/2024 6:38 PM EDT) Only the most recent of8 resultswithin the time period is included. Glucose Lvl 107 65 - 199 mg/dL [facility] Comment:Diabetes: >=200 mg/d L plus symptoms BUN 10 10 - 20 mg/dL [facility] Creatinine 0.54(L) 0.80 - 1.50 mg/dL [facility] Sodium 135 135 - 145 mmol/L [facility] Potassium 3.6 3.5 - 5.0 mmol/L [facility] Comment: Please note: ??Patients with WBC >100,000 may have falsely elevated Potassium levels. ??For accurate Potassium quantification in these patients send serum separator tube (gold top) for subsequent determinations. ??Contact the Clinical Chemistry Laboratory if there are any questions. Chloride 99 98 - 107 mmol/L [facility] CO2 26 22 - 31 mmol/L [facility] Anion Gap 10 5 - 15 mmol/L [facility] Calcium 9.1 8.5 - 10.5 mg/dL [facility] Estimated GFR 120 >=60 mL/min/1. 73 m?? [facility] Comment: This patient's estimated GFR was calculated using the 2020 CKD-EPI equation. The estimated GFR can vary from the measured GFR by up to 30% in the absence of rapidly changing kidney function. Assessment of the estimated GFR is not appropriate when creatinine concentrations are rapidly changing. For clinical situations in which a more precise estimate of GFR is necessary, consider alternative methods of GFR estimation such as a 24-hour urine creatinine clearance. Assignment of CKD stage 1-5 for patients with an eGFR near the transition point between stages may be based on clinical assessment of muscle mass and symptoms in addition to eGFR. Blood 04/26/2024 6:38 PM EDT 04/26/2024 6:51 PM EDT Narrative Resulting Agency Comment Spec In Lab Kay Bocanegra MD CHEMISTRY ORDERABLES [facility] [place] [address] * IR Mediport Placement (04/15/2024 1:00 PM EDT) Anatomical Region Laterality Modality X-Ray Angiograph y Impressions 04/15/2024 2:25 PM EDT : ??Successful placement single lumen left ??IJ port, catheter tip at cavoatrial junction. ?? Plan: ??Port ready for use. I, Dr. Bernstein, was present throughout the procedure. I was present during the intraservice time as documented by the IR Nurse. ?? Narrative 04/15/2024 2:25 PM EDT IR PROCEDURE NOTE: ?? Tunneled LEFT IJ chest port. INDICATION: Pancreatic cancer, requires long-term central venous access for chemotherapy. TECHNIQUE: After discussing risks (including infection, hemorrhage, occlusion), and benefits, patient consented to the procedure and conscious sedation.Due to the painful nature of the procedure, split doses of fentanyl and versed were administered by the IR nurse during continuous monitoring of pulse, blood pressure and oxygen saturation. ?? Maximal sterile barrier technique was utilized. ??After sterile preparation of the neck and upper chest, ultrasound was used to localize the left internal jugular vein. 7 cc 1% lidocaine SQ was administered for anesthesia, and a 21 ga needle was advanced under ultrasound guidance into the LIJ and a 0.018 inch wire was advanced into SVC under fluoroscopic guidance. ??A 5 Fr introducer sheath was placed and the wire exchanged for a 0.035 inch wire. ??Lidocaine was then infiltrated in a caudal-lateral direction, and infiltrated over a 3 cm infraclavicular area for pocket creation. ??A 2.5 cm incision was made, and with blunt dissection a pocket created. ??Port was attached to the catheter, placed into the pocket. ??A tunneler was then used to bring the 8 Fr catheter through the tunnel to the venotomy site. ??Venotomy was dilated to accommodate the 8 Fr peel-away sheath, and during breath-hold, the catheter advanced. ??Sheath was removed. ??Port flushed and aspirated well. ??Tip position confirmed with stored fluoroscopic image. ??Pocket was closed with resorbable 2-0 interrupted sutures and running 4-0 subcuticular suture. ??Patient tolerated the procedure well. ??There were no immediate complications. ?? No contrast administered. ?EBL : ?? 3 cc Ministerio Kelly MD IMG IR ORDERABLES * PGx Oncology (04/12/2024 12:44 PM EDT) Blood (Blood, Venous) 04/12/2024 12:44 PM EDT 04/12/2024 2:02 PM EDT Narrative Resulting Agency Comment Spec In Lab Ministerio Kelly MD CHEMISTRY ORDERABLES Performing Organization Address [facility] Co de Phone Number [facility] [place] [address] * Research Venipuncture (04/12/2024 12:44 PM EDT) [facility] Research Venipuncture Drawn [facility] Blood 04/12/2024 12:4 4 PM EDT 04/12/2024 1:08 PM EDT Narrative Resulting Agency Comment Spec In Lab Ministerio Kelly MD CHEMISTRY ORDERABLES Performing Organization Address [facility] de Phone Number [facility] [place] [address] * (ABNORMAL) Carbohydrate Antigen 19-9 (04/12/2024 12:44 PM EDT) Only the most recent of2 resultswithin the time period is included. [facility] CA 19-9 168.0(H) <=35.0 u/ml [facility] Comment: This result was generated using a Mychal Rosa Elena immunoassay. ??Results obtained from other methods or manufacturers cannot be used interchangeably with this method. Blood 04/12/2024 12:4 4 PM EDT 04/12/2024 12:53 PM EDT Narrative Resulting Agency Comment Spec In Lab Ministerio Kelly MD CHEMISTRY ORDERABLES Performing Organization Address [facility] de Phone Number [facility] [place] [address] * (ABNORMAL) Comprehensive metabolic panel (non-fasting) (04/12/2024 12:44 PM EDT) Only the most recent of5 resultswithin the time period is included. [facility] Glucose Lvl 89 65 - 199 mg/dL [facility] Comment:Diabetes: >=200 mg/d L plus symptoms BUN 8(L) 10 - 20 mg/dL [facility] Creatinine 0.53(L) 0.80 - 1.50 mg/dL [facility] Sodium 140 135 - 145 mmol/L [facility] Potassium 4.0 3.5 - 5.0 mmol/L [facility] Comment: Please note: ??Patients with WBC >100,000 may have falsely elevated Potassium levels. ??For accurate Potassium quantification in these patients send serum separator tube (gold top) for subsequent determinations. ??Contact the Clinical Chemistry Laboratory if there are any questions. Chloride 102 98 - 107 mmol/L [facility] CO2 31 22 - 31 mmol/L [facility] Anion Gap 7 5 - 15 mmol/L [facility] Calcium 9.2 8.5 - 10.5 mg/dL [facility] Total Protein 5.9(L) 6.1 - 8.0 g/dL [facility] Albumin 3.2 3.2 - 5.2 g/dL [facility] AST 13 0 - 39 unit/L [facility] ALT 14 0 - 55 unit/L [facility] Alk Phos 96 40 - 130 unit/L [facility] Total Bilirubin 0.5 0.2 - 1.3 mg/dL [facility] Estimated GFR 121 >=60 mL/min/1. 73 m?? [facility] Comment: This patient's estimated GFR was calculated using the 2020 CKD-EPI equation. The estimated GFR can vary from the measured GFR by up to 30% in the absence of rapidly changing kidney function. Assessment of the estimated GFR is not appropriate when creatinine concentrations are rapidly changing. For clinical situations in which a more precise estimate of GFR is necessary, consider alternative methods of GFR estimation such as a 24-hour urine creatinine clearance. Assignment of CKD stage 1-5 for patients with an eGFR near the transition point between stages may be based on clinical assessment of muscle mass and symptoms in addition to eGFR. Blood 04/12/2024 12:4 4 PM EDT 04/12/2024 12:53 PM EDT Narrative Resulting Agency Comment Spec In Lab Ministerio Kelly MD CHEMISTRY ORDERABLES Performing Organization Address [facility]/ZIP Co de Phone Number [facility] [place] [address] * Lavender Tube HOLD (04/06/2024 3:59 AM EDT) Only the most recent of3 resultswithin the time period is included. Lavender Hold Sample in lab. [facility] Blood Venous Draw / Unknown 04/06/2024 3:59 AM EDT 04/06/2024 4:44 AM EDT Sarwat Guevara MD HEMATOLOGY ORDERABLE S Performing Organization Address [facility] [place] [address] * Phosphorus (04/03/2024 8:15 AM EDT) Only the most recent of5 resultswithin the time period is included. Phosphorus 2.7 2.5 - 4.5 mg/dL [facility] Blood 04/03/2024 8:15 AM EDT 04/03/2024 8:35 AM EDT Narrative Resulting Agency Comment Spec In Lab Sarwat Guevara MD CHEMISTRY ORDERABLES Performing Organization Address [facility] Co de Phone Number [facility] [place] [address] * Magnesium (04/03/2024 8:15 AM EDT) Only the most recent of6 resultswithin the time period is included. Magnesium 0.69 0.69 - 1.07 mmol/L [facility] Blood 04/03/2024 8:15 AM EDT 04/03/2024 8:35 AM EDT Narrative Resulting Agency Comment Spec In Lab Sarwat Guevara MD CHEMISTRY ORDERABLES [facility] [place] [address] * XR Abdomen 1 view Contrast Challenge (04/02/2024 10:54 AM EDT) Only the most recent of4 resultswithin the time period is included. WORKSTATION ID [id number] RAD Anatomical Region Laterality Modality Abdomen N/A Digital Radiogra phy Impressions 04/02/2024 5:05 PM EDT Nonobstructive bowel gas pattern. Minimal residual contrast remains in the descending and rectosigmoid colon. Thank you for letting us participate in the care of this patient. ??If you are a health care provider and have any questions regarding this report, please contact the number below. ??For patients who have questions please contact the health childcare administrator that requested your imaging first. ? Electronically signed by: Katherine Salazar MD, [facility] ([phone]), at 04/02/2024 5:05 PM Narrative 04/02/2024 5:05 PM EDT EXAMINATION: XR ABDOMEN 1 VIEW FOR CONTRAST CHALLENGE CLINICAL HISTORY: follow up to contrast challenge TECHNIQUE: AP supine radiographs of the abdomen labeled 24 HR POST, 4 images, 04/02/2024 electronically time stamped [id number] hours COMPARISON: AP supine radiographs of the abdomen 04/02/2024 electronically time stamped [id number] hours. FINDINGS: Minimal residual contrast seen in the descending and rectosigmoid colon. No dilated contrast-filled or air-filled loops of bowel. A stent is again seen overlying the epigastric region/left upper quadrant. Imaged lung bases appear clear. Procedure Note Katherine Salazar MD - 04/02/2024 EXAMINATION: XR ABDOMEN 1 VIEW FOR CONTRAST CHALLENGE CLINICAL HISTORY: follow up to contrast challenge TECHNIQUE: AP supine radiographs of the abdomen labeled 24 HR POST, 4 images,04/02/2024 electronically time stamped [id number] hours COMPARISON: AP supine radiographs of the abdomen 04/02/2024 electronically timestamped 6789-3140 hours. FINDINGS: Minimal residual contrast seen in the descending and rectosigmoid colon.No dilated contrast-filled or air-filled loops of bowel. A stent is againseen overlying the epigastric region/left upper quadrant. Imaged lung basesappear clear. IMPRESSION Nonobstructive bowel gas pattern. Minimal residual contrast remains inthe descending and rectosigmoid colon. Thank you for letting us participate in the care of this patient. If youare a health care provider and have any questions regarding this report,please contact the number below. For patients who have questions please contactthe health childcare administrator that requested your imaging first. Electronically signed by: Katherine Salazar MD, [facility]([phone]), at 04/02/2024 5:05 PM Emerson Ayala MD IMG DX ORDERABLES * CT Chest wo Contrast (Generic) (03/31/2024 5:35 PM EDT) [employer] Signature WORKSTATION ID [id number] RAD Anatomical Region Laterality Modality Chest Computed Tomogra phy Impressions 04/01/2024 8:45 AM EDT No evidence for intrathoracic metastasis Thank you for letting us participate in the care of this patient. ??If you are a health care provider and have any questions regarding this report, please contact the number below. ??For patients who have questions please contact the health childcare administrator that requested your imaging first. ? Electronically signed by: Armin Marie MD, [facility] ??([phone]), at 04/01/2024 8:45 AM Narrative 04/01/2024 8:45 AM EDT EXAMINATION: CT CHEST WO CONTRAST (GENERIC) CLINICAL HISTORY: pancreatic cancer. staging TECHNIQUE: Helical CT of the chest without intravenous contrast administration. Thin-section reconstructions as well as coronal and sagittal reformatted images were generated. COMPARISON: 03/11/2024 FINDINGS: Pulmonary parenchyma: There is linear atelectasis in the lower lobes, left greater than right. Persistent linear scarring/atelectasis in the posterior right upper lobe. Airways: No central endobronchial abnormality. Pleura: No effusion. Lymph nodes: No lymphadenopathy. Heart and vasculature: Normal size of the heart. There is mild coronary artery calcification. No pericardial effusion. The mid ascending aorta measures 3.9 cm. Other mediastinal structures: No significant findings. Upper abdomen: There is haziness and small lymph nodes surrounding the pancreas, which is partially imaged. Skeletal structures: No significant findings. Procedure Note Armin Marie MD - 04/01/2024 EXAMINATION: CT CHEST WO CONTRAST (GENERIC) CLINICAL HISTORY: pancreatic cancer. staging TECHNIQUE: Helical CT of the chest without intravenous contrastadministration. Thin-section reconstructions as well as coronal and sagittal reformattedimages were generated. COMPARISON: 03/11/2024 FINDINGS: Pulmonary parenchyma: There is linear atelectasis in the lower lobes,left greater than right. Persistent linear scarring/atelectasis in theposterior right upper lobe. Airways: No central endobronchial abnormality. Pleura: No effusion. Lymph nodes: No lymphadenopathy. Heart and vasculature: Normal size of the heart. There is mild coronaryartery calcification. No pericardial effusion. The mid ascending aorta measures3.9 cm. Other mediastinal structures: No significant findings. Upper abdomen: There is haziness and small lymph nodes surrounding thepancreas, which is partially imaged. Skeletal structures: No significant findings. IMPRESSION No evidence for intrathoracic metastasis Thank you for letting us participate in the care of this patient. If youare a health care provider and have any questions regarding this report,please contact the number below. For patients who have questions please contactthe health childcare administrator that requested your imaging first. Emerson Ayala MD IM CT ORDERABLES * Request For 2nd Read CT Abdomen & Pelvis (03/31/2024 5:05 PM EDT) WORKSTATION ID [id number] RAD Anatomical Region Laterality Modality Abdomen, Pelvis SO Impressions 04/01/2024 8:51 AM EDT 1. ??Increased size of the primary pancreatic neoplasm with vascular encasement/abutment, as above, as well as contact with the duodenum. 2. ??No lymphadenopathy or metastatic disease. Thank you for letting us participate in the care of this patient. ??If you are a health care provider and have any questions regarding this report, please contact the number below. ??For patients who have questions please contact the health childcare administrator that requested your imaging first. ? Electronically signed by: CHRYSTAL MONROY MD, [facility] ([phone]), at 04/01/2024 8:51 AM Narrative 04/01/2024 8:51 AM EDT EXAMINATION: REQUEST FOR 2ND READ CT ABDOMEN AND PELVIS CLINICAL HISTORY: pancreatic cancer -needed for staging purpose, please compare to 12/15/23 CT; Sending Institution [facility]; Date of exam [id number]; I believe a reinterpretation of this exam may alter care of Patient. Yes TECHNIQUE: Helical CT of the abdomen and pelvis following the intravenous administration of contrast at [facility] on 03/25/2024 and submitted for reinterpretation. COMPARISON: CT 12/15/2023 FINDINGS: Lower chest: Bibasilar atelectasis. Liver: Normal size and attenuation without lesions. Focal fatty infiltration at the falciform and gallbladder fossa. Bile ducts: Nondilated. Gallbladder: No calcified gallstones. Normal caliber wall. Pancreas: Assessment is slightly limited by lack of arterial phase imaging. Primary tumor: 5.4 x 5.9 cm hypoattenuating solid mass in the head/uncinate (series 2, image 258), previously 3.6 x 4.8 cm on my remeasurement of the prior scan. Pancreatic duct: Nondilated. Vascular involvement: Arterial: No contact with the celiac axis. There is encasement of the SMA with abutment of the replaced right hepatic artery proximally. Venous: Encasement of the SMV with occluded lumen. 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 Abutment of the main portal vein and splenic vein. Spleen: Upper limits of normal in size. Adrenals: Normal. Kidneys: Symmetric enhancement. No hydronephrosis. Urinary Bladder: Decompressed limiting evaluation. Vasculature: No abdominal aortic aneurysm. Please see pancreas section for further details. Lymph Nodes: No enlarged lymph nodes. Bowel: Loss of fat plane between the tumor and the third portion of the duodenum with approximately 180 degree contact. Nondilated small and large bowel. Normal appendix. Peritoneum and retroperitoneum: Central mesenteric stranding extending over the right anterior renal fascial in the pelvis. Trace free fluid in the pelvis. No loculated collection or free air. Abdominal wall: Tiny fat-containing umbilical hernia. Reproductive organs: Normal. Osseous structures: No suspicious lesions. Procedure Note Chrystal Monroy MD - 04/01/2024 EXAMINATION: REQUEST FOR 2ND READ CT ABDOMEN AND PELVIS CLINICAL HISTORY: pancreatic cancer -needed for staging purpose, pleasecompare to 12/15/23 CT; Sending Institution [facility]; Date of exam [id number]; I believe a reinterpretation of this exam may alter care ofPatient. Yes TECHNIQUE: Helical CT of the abdomen and pelvis following theintravenous administration of contrast at [facility] on 03/25/2024 andsubmitted for reinterpretation. COMPARISON: CT 12/15/2023 FINDINGS: Lower chest: Bibasilar atelectasis. Liver: Normal size and attenuation without lesions. Focal fattyinfiltration at the falciform and gallbladder fossa. Bile ducts: Nondilated. Gallbladder: No calcified gallstones. Normal caliber wall. Pancreas: Assessment is slightly limited by lack of arterial phaseimaging. Primary tumor: 5.4 x 5.9 cm hypoattenuating solid mass in thehead/uncinate (series 2, image 258), previously 3.6 x 4.8 cm on my remeasurement of theprior scan. Pancreatic duct: Nondilated. Vascular involvement: Arterial: No contact with the celiac axis. There is encasement of the SMAwith abutment of the replaced right hepatic artery proximally. Venous: Encasement of the SMV with occluded lumen. Mesenteric collateralvarices are present. Abutment of the main portal vein and splenic vein. Spleen: Upper limits of normal in size. Adrenals: Normal. Kidneys: Symmetric enhancement. No hydronephrosis. Urinary Bladder: Decompressed limiting evaluation. Vasculature: No abdominal aortic aneurysm. Please see pancreas sectionfor further details. Lymph Nodes: No enlarged lymph nodes. Bowel: Loss of fat plane between the tumor and the third portion of theduodenum with approximately 180 degree contact. Nondilated small and large bowel.Normal appendix. Peritoneum and retroperitoneum: Central mesenteric stranding extendingover the right anterior renal fascial in the pelvis. Trace free fluid in thepelvis. No loculated collection or free air. Abdominal wall: Tiny fat-containing umbilical hernia. Reproductive organs: Normal. Osseous structures: No suspicious lesions. IMPRESSION 1. Increased size of the primary pancreatic neoplasm with vascular encasement/abutment, as above, as well as contact with the duodenum. 2. No lymphadenopathy or metastatic disease. Thank you for letting us participate in the care of this patient. If youare a health care provider and have any questions regarding this report,please contact the number below. For patients who have questions please contactthe health childcare administrator that requested your imaging first. Electronically signed by: CHRYSTAL MONROY MD, [facility]([phone]), at 04/01/2024 8:51 AM Emerson Ayaal MD IMG OUTSIDE INTERP RETATION ORDERABLES * XR ERCP (03/31/2024 12:37 PM EDT) Narrative [facility] [place] 03/31/2024 12:37 PM EDT See PACS for result report. Emerson Ayala MD IMG FILM LIBRARY O RDERABLES [place], [place] * (ABNORMAL) Non-Syrup Shed Supervisor Final Report (03/31/2024 11:12 AM EDT) Non-Syrup Shed Supervisor Final Report [id number] ? Location: L1WD; 0104; A The signing pathologist has (i) examined the relevant preparation(s) for the specimen(s) and (ii) rendered or confirmed the diagnosis(es). . ? Non-Syrup Shed Supervisor Final DIAGNOSIS Positive for Malignancy Electronically signed by: ?Yony HERNANDEZ, Zane Swenson Verified: ??04/02/2024 13:17 ??Cytopathologist Performed at: ??-[facility] [place], [place] [address] Director Script: Madison Monreal MD, FCAP, ??[place] Certificate: [id number] DISCUSSION Pancreas: uncinate (EUS-guided FNA) - Adenocarcinoma. Block ? Antibody ? Result (Positive/Negative ) A1 ?MLH1 ? Positive, intact nuclear staining ? MSH2 ? Positive, intact nuclear staining ? MSH6 ? Positive, intact nuclear staining ? PMS2 ?Positive, intact nuclear staining Interpretation: Immunostains for MLH1, MSH2, MSH6, and PMS2 reveal intact nuclear staining in tumor cells. Immunohistochemica l assay was performed on paraffin-embedded tissue sections fixed in 10% neutral buffered formalin for 6-72 hours using the polymer system technique with appropriate controls. The assay was performed according to the contract sheltered workshop supervisor's instructions using anti-MLH-1 (ES05), anti-MSH-2 ([id number]), anti-MSH-6 (44), and anti-PMS-2 (MRQ-28) antibodies. THIS RESULT REQUIRES PHYSICIAN/A.P.P. FOLLOW UP CLINICAL INFORMATION Specimen Source : Pancreas: uncinate (EUS-guided FNA - assisted) Pertinent Clinical Data and Significant Therapy: 53yo male with a pancreas uncinate Clinical Impression : Pancreas uncinate Pertinent Radiologic Findings ??: (not provided) Gross Description: Received in Formalin, approximately 45 mL total volume of cloudy, pink fluid with clots. Total Preparation: Diff-Quik 1; Pap Stain 1; Cell Block 1. Fine Needle Aspiration Immediate Assessment: Evaluation Episode #1 (1 slide): . CLINICAL INFORMATION Adequate for final diagnosis. Highly atypical epithelial cells. Immediate Assessment by: ?? Jl Mckinney MD, PhD. Note: The above attending cytopathologist personally examined the Immediate Assessment slides and rendered the Immediate Assessment. Such assessments are preliminary; see Diagnosis and Discussion for final interpretation.(A) [facility] 03/31/2024 11:1 2 AM EDT Alan Silva MD PATHOLOGY/CYTOLOGY ORDERABLES [facility] [place] [address] * Cytopathology Non-Gynecological (03/31/2024 11:12 AM EDT) AP Specimen 03/31/2024 11:1 2 AM EDT 03/31/2024 11:12 AM EDT Narrative [facility] - 03/31/2024 11:12 AM EDT Specimen requisition ordered. ??Separate Pathology report to follow Alan Silva MD PATHOLOGY/CYTOLOGY ORDERABLES Performing Organization Address City/[facility]/ZIP Co de Phone Number [facility] [place] [address] * UPPER EUS-ENDOSCOPIC ULTRASOUND (03/31/2024 9:53 AM EDT) UPPER ENDOSCOPIC ULTRASOUND [facility] Endoscopy Procedure Date: 03/31/2024 9:53 AM ? Patient Name: Dylan Michele ? Date of : 1970 ? Age: 53 ? Order #: [id number] ? Instrument Name: [id number] ? Procedure: ? Upper EUS Indications: ? Suspected mass in pancreas on CT ? scan, signs/symptoms of malignant ? gastric outlet obstruction Providers: ? Eulogio Marcos MD, Alan Torres ? Yodit Silva Glenn G. ? SAM Holden, Madelaine Bower MD: ?Cedric Rosenbaum MD, Anna ? Christiano, Emerson Ayala Medicines: ? Monitored Anesthesia Care Complications: ? No immediate complications. Procedure: ? Pre-Anesthesia Assessment: ? - Prior to the procedure, a History ? and Physical was performed, and ? patient medications, allergies and ? sensitivities were reviewed. The ? patient's tolerance of previous ? anesthesia was reviewed. ? - The risks and benefits of the ? procedure and the sedation options ? and risks were discussed with the ? patient. All questions were ? answered and informed consent was ? obtained. ? - Patient identification and ? proposed procedure were verified ? prior to the procedure by the ? physician, the nurse, the ? safety tech and the diesel service technician. The ? procedure was verified in the ? pre-procedure area in the endoscopy ? suite. ? - Pre-procedure physical ? examination revealed no ? contraindications to sedation. ? - ASA Grade Assessment: III - A ? patient with severe systemic ? disease. ? - After reviewing the risks and ? benefits, the patient was deemed in ? satisfactory condition to undergo ? the procedure. ? - Monitored anesthesia care under ? the supervision of a INSTALLATION HELPER was ? determined to be medically ? necessary for this procedure based ? on severe comorbidity (greater than ? ASA Grade II), increased risk of ? airway obstruction (oral, facial, ? neck, jaw abnormalities) and morbid ? obesity. ? The procedure, indications, ? benefits, risks and alternatives ? were explained to the patient. ? Specifically discussed were ? potential complications including, ? but not limited to, bleeding, ? perforation, infection, missing a ? cancer, and adverse medication ? reactions.The Endoscope was ? introduced through the mouth, and ? advanced to the fourth part of ? duodenum. The upper EUS was ? accomplished without difficulty. ? The patient tolerated the procedure ? well. ? Findings: ? ENDOSONOGRAPHIC FINDING: : ? The esophagus, stomach and duodenum and adjacent ? structures were examined endosonographically. ? An irregular mass was identified in the uncinate ? process of the pancreas. The mass was hypoechoic. The ? mass measured 35 mm in maximal cross-sectional ? diameter. The endosonographic borders were ? poorly-defined. The remainder of the pancreas was ? examined. The endosonographic appearance of ? parenchyma and the upstream pancreatic duct indicated ? duct dilation. Fine needle biopsy was performed. ? Color Doppler imaging was utilized prior to needle ? puncture to confirm a lack of significant vascular ? structures within the needle path. Four passes were ? made with the 22 gauge [employer] biopsy needle using ? a transduodenal approach. A preliminary cytologic ? examination was performed. The cellularity of the ? specimen was adequate. Final cytology results are ? pending. ? There was no sign of significant endosonographic ? abnormality in the visualized portion of the liver. ? There was no sign of significant endosonographic ? abnormality in the common bile duct. The maximum ? diameter of the duct was 4 mm. ? ENDOSCOPIC FINDING: : ? The Z-line was regular. The esophagus was normal. ? The stomach was distended with marked volume of ? retained fluid. ? An acquired extrinsic severe stenosis was found in ? the fourth portion of the duodenum. This was unable ? to be traversed. This was successfully stented with a ? 22 mm x 9 cm WallFlex stent under fluoroscopic ? guidance. ? Moderate Sedation: ? Not applicable - See Anesthesia documentation Impression: ?- Pancreas uncinate mass. Fine ? needle biopsy performed. On-site ? cytopathology read suggestive of ? malignancy. ? - Malignant duodenal obstruction. ? Uncovered duodenal stent ? successfully placed. Recommendation: ?- Await final cytology results. ? - Return to hospital lee. ? - OK for clear liquid diet. Advance ? to full liquid diet tomorrow if ? tolerating clears. ? - Check CA 19-9. Obtain ? non-contrast CT chest to complete ? staging. ? - Referral to Oncology and Surgical ? Oncology. ? Attending Participation: ? I was present and participated during the entire ? procedure, including non-lara portions. ? _ Eulogio Marcos MD 03/31/2024 12:36:26 PM This report has been signed electronically. Number of Addenda: 0 Note Initiated On: 03/31/2024 9:53 AM PROVATION 03/31/2024 9:53 AM EDT Cedric Rosenbaum DO GENERAL SURGICAL ORD ERABLES Performing Organization Address City/[facility] Co de Phone Number PROVATION * (ABNORMAL) Urinalysis Microscopic Exam (03/30/2024 4:45 AM EDT) RBC UA 1 0 - 3 /HPF [facility] WBC UA 8(H) 0 - 3 /HPF [facility] Bacteria UA Rare(A) None /HPF [facility] Comment: Interpret results with caution, microscopic results are from suboptimal specimen volume Squam Epith UA 1 <=4 /HPF [facility] Hyaline Cast UA 5(H) 0 - 2 /LPF [facility] Y [facility] Clean Catch Urine 03/30/2024 4:45 AM EDT 03/30/2024 5:20 AM EDT Narrative Resulting Agency Comment Spec In Lab Dereje TONEY URINE ORDERABLES Performing Organization Address [facility]/ZIP Co de Phone Number [facility] [place] [address] * (ABNORMAL) Urinalysis with reflex Culture (03/30/2024 4:45 AM EDT) Glucose UA Negative Negative mg/dL [facility] Protein UA 30(A) Negative mg/dL [facility] Bilirubin UA Small(A) Negative mg/dL [facility] Comment: Clinical correlation required for positive Urine Bilirubin results as false positive may occur with some drugs and drug related products. If a false positive is suspected a serum total bilirubin should be considered if clinically indicated. Urobilinogen UA Normal Normal mg/dL [facility] pH UA 8.5(H) 5.0 - 8.0 [facility] Blood UA Negative Negative mg/dL [facility] Ketones UA 15(A) Negative mg/dL [facility] Nitrite UA Negative Negative [facility] Leukocytes UA Negative Negative mcL [facility] Appearance UA Clear Clear [facility] Spec Ashdown UA 1.019 1.005 - 1.030 [facility] Color UA Dark Yellow Yellow [facility] Culture Reflexed No MAR Y [facility] Clean Catch Urine 03/30/2024 4:45 AM EDT 03/30/2024 5:20 AM EDT Narrative Resulting Agency Comment Spec In Lab Sanna Conner MD URINE ORDERABLES Performing Organization Address [facility] Co de Phone Number [facility] [place] [address] * (ABNORMAL) Prealbumin (03/30/2024 4:10 AM EDT) Prealbumin 7(L) 20 - 40 mg/dL [facility] Comment: Prealbumin levels are generally lower in the pediatric population; adult concentrations are usually attained near puberty. Blood 03/30/2024 4:10 AM EDT 03/30/2024 4:29 AM EDT Narrative Resulting Agency Comment Spec In Lab Sarwat Fleming MD CHEMISTRY OR DERABLES Performing Organization Address City/[facility]/ZIP Co de Phone Number [facility] [place] [address] * Hemoglobin A1c (03/30/2024 4:10 AM EDT) [facility] Hemoglobin A1C 5.2 4.3 - 5.6 % [facility] Comment: Reference Range: 4.3 - 5.6% 5.7 - 6.4% - Increased Risk of Developing Diabetes Mellitus >= 6.5% - Consistent with diagnosis of Diabetes Mellitus In the absence of hyperglycemia (i.e. plasma glucose > 200 mg/dL) or classic symptoms of hyperglycemia a repeat measurement of HbA1c should be performed on a separate sample to confirm the diagnosis. Diagnosis and Classification of Diabetes Mellitus, Diabetes Care 2013; 36: Suppl. 1, S67-74 Est Avg Gluc 104 mg/dL [facility] Blood 03/30/2024 4:10 AM EDT 03/30/2024 4:29 AM EDT Narrative Resulting Agency Comment Spec In Lab Calderon Jiménez MD CHEMISTRY ORDERABLES Performing Organization Address City/[facility]/ZIP Co de Phone Number [facility] [place] [address] * CEA (03/30/2024 4:10 AM EDT) [facility] CEA 2.1 <=3.8 ng/mL [facility] Comment: Reference range: ??(20-69 years): Non-smoker: ??less than or equal to 3.8 ng/mL Smoker: ??less than 5.5 ng/ml This result was generated using a Mychal Rosa Elena immunoassay. ??Results obtained from other methods or manufacturers cannot be used interchangeably with this method. Blood Venous Draw / Unknown 03/30/2024 4:10 AM EDT 03/30/2024 4:31 AM EDT Narrative Resulting Agency Comment Spec In Lab Emerson Ayala MD CHEMISTRY ORDERABL ES Performing Organization Address [facility]/ZIP Co de Phone Number [facility] [place] [address] * XR Chest One View (03/29/2024 9:34 PM EDT) [facility] WORKSTATION ID [id number] RAD Anatomical Region Laterality Modality Chest N/A Digital Radiogra phy Impressions 03/29/2024 10:36 PM EDT No acute finding. Preliminary report signed by: Dominic Healy MD at 03/29/2024 9:38 PM I have personally reviewed the image(s) and the resident's interpretation and agree with the findings, Kelsie Goodman MD at 03/29/2024 10:36 PM Thank you for letting us participate in the care of this patient. ??If you are a health care provider and have any questions regarding this report, please contact the number below. ??For patients who have questions please contact the health childcare administrator that requested your imaging first. ? Electronically signed by: Kelsie Goodman MD, [facility] ([phone]), at 03/29/2024 10:36 PM Narrative 03/29/2024 10:36 PM EDT EXAMINATION: XR CHEST ONE VIEW CLINICAL HISTORY: shortness of breath TECHNIQUE: 1 view of the chest COMPARISON: CT chest 03/11/2024. FINDINGS: The lungs are clear. No pneumothorax. No pleural effusion. Normal cardiomediastinal contours. No acute osseous abnormality. Mild bilateral acromioclavicular osteoarthropathy. Normal upper abdomen. Procedure Note Winnie Goodman MD - 03/29/2024 EXAMINATION: XR CHEST ONE VIEW CLINICAL HISTORY: shortness of breath TECHNIQUE: 1 view of the chest COMPARISON: CT chest 03/11/2024. FINDINGS: The lungs are clear. No pneumothorax. No pleural effusion. Normal cardiomediastinal contours. No acute osseous abnormality. Mild bilateral acromioclavicular osteoarthropathy. Normal upper abdomen. IMPRESSION No acute finding. Preliminary report signed by: Dominic Healy MD at 03/29/2024 9:38 PM I have personally reviewed the image(s) and the resident's interpretationand agree with the findings, Kelsie Goodman MD at 03/29/2024 10:36 PM Thank you for letting us participate in the care of this patient. If youare a health care provider and have any questions regarding this report,please contact the number below. For patients who have questions please contactthe health childcare administrator that requested your imaging first. Bernarda Gomez MD IMG DX ORDERABLES * (ABNORMAL) pro-Brain Natriuretic Peptide (03/29/2024 4:32 PM EDT) ProBNP 465(H) <=124 pg/mL [facility] Blood Venous Draw / Unknown 03/29/2024 4:32 PM EDT 03/29/2024 4:39 PM EDT Narrative Resulting Agency Comment Spec In Lab Ramonita Abbasi DO CHEMISTRY ORDERABL ES [facility] [place] [address] * Film Library- Storage Only Ultrasound Study (03/11/2024 12:05 AM EDT) Narrative Dicom, Auditing User - 03/29/2024 9:54 PM EDT This exam is auto-finalizing. It's purpose is for storage only. Bernarda Gomez MD [facility] FILM LIBRARY ORD ERABLES * Scan Doc: Ultrasound (03/11/2024 12:00 AM EDT) Anatomical Region Laterality Modality Other Narrative 03/11/2024 12:00 AM EDT Ordered by an unspecified provider. Scanning Provider MEDIA MGR SCAN EXT O RDR/RSLT * Film Library- Storage Only CT Chest (03/11/2024 12:00 AM EDT) Narrative Dicom, Auditing User - 03/29/2024 9:52 PM EDT This exam is auto-finalizing. It's purpose is for storage only. Bernarda Gomez MD IMG FILM LIBRARY ORD ERABLES from Last 3 Months Advance Directives * Attempt Cardiopulmonary Resuscitation - Inpatient (Latest Code Status on File) Date Activated Date Inactivated Comments 04/15/2024 11:44 AM 04/16/2024 4:36 AM Question Answer Comments Code Status decision made by: Patient * Attempt Cardiopulmonary Resuscitation - Inpatient Date Activated Date Inactivated Comments 03/29/2024 10:50 PM 04/06/2024 2:40 PM Question Answer Comments Code Status decision made by: Patient Care Teams Database Technician Relationship Specialty Start Date End Date Cedric Rosenbaum DO [address] [place] [address] PCP - General Family Medicine 03/29/24
--- OUTSIDE RECORDS SUMMARY | 2024-05-14 12:55 | XMS_ITS | Encounter Summary ---
Author Organization [facility] [place] [address] Care Team Providers Care Skill Labor Name Role Phone Cedric Rosenbaum DO Primary Care Provider [phone] Reason for Visit * Reason Onset Date Comments Other 05/02/2024 Ongoing abdomina l cramping and pain Encounter Details Date Type Department Care Team (Late st Contact Info) Description 05/02/2024 Telephone Hematology/Oncology at [address] [phone] Arlet Donald RN Other (Ongoing abdominal cramping and pain) Social History Tobacco Use Types Packs/Day Years [...] from your doctor or pharmacy? Never 04/12/2024 [facility] Utilities Answer Date Recorded In the past 12 months has th e electric, gas, oil, or water company [...] any time in the past 12 m [facility], were you homeless or living in a half-way (including now)? No 04/12/2024 [facility] IPV Inpatient [...] encounter Miscellaneous Notes * Telephone Encounter - Arlet Donald RN - 05/02/2024 10:53 AM EDT Caller: Dylan Relationship: Self Clarified Two Patient Identifiers: [x] Diagnosis:pancreatic cancer Treatment:gemzar/abraxane April 22 Reason for Call: I can't eat or sleep Assessment: Pt having ongoing abdominal pain and cramping. He was to try reglan 30 minutes prior toeating, he has tried once a day with minimal relief. He wants to eat but can't because pain and cramping is so bad. He cannot sleep due to this also. He tried 2-3 oz of fruit juice this AM and had tostop due to pain and cramping. He had hydration with potassium last Thursday when in clinic and he sta oliver it did not make any difference. He is moving bowels with the help of miralax and MOM. Tired gasex and other over th counter meds but still gets bloated with pain and abdominal cramping. He is urinating ok. Recommendations/Plan:Reviewed with Melissa Guadarrama NP she would like him to go to ER. Pt will go to [facility] ER report given to Rama VARGAS. Dylan verbalized understanding of instructions and agreement with plan. Reminded Jenn to call back with any questions/concerns. Select Specific Decision Support Tool Used: None available, provider to review Name of Guideline/Protocol Used: Melissa Guadarrama NP documented in this encounter Plan of Treatment Upcoming Encounters Date Type Department Care Team (Late st Contact Info) Description 05/20/2024 8:30 AM EDT Office Visit Hematology/Oncology at [address] [phone] Ministerio Kelly MD [facility] [place] [address] Katherine Guadarrama APRN [address] [place] [address] [place] [address] 05/20/2024 9:00 AM EDT Infusion Hematology Oncology at [address] [phone] 05/30/2024 1:00 PM EDT Tech [place] [phone] Dena Graves 05/30/2024 4:00 PM EDT Office [place] [phone] Derek Evans MD [facility] [place] [address] 06/03/2024 8:30 AM EDT Office Visit Hematology/Oncology at [address] [phone] Ministerio Kelly MD [facility] [place] [address] Katherine Guadarrama APRN [address] [place] [address] DR HEMATOLOGY AND ONGOLOCY [place], [place] [id number] 06/03/2024 9:00 AM EDT Infusion Hematology Oncology at [address] [phone] documented as of this encounter Visit Diagnoses Not on filedocumented in this encounter Care Teams Skill Labor Relationship Specialty Start Date End Date Cedric Rosenbaum DO [address] [place] [phone] PCP - General Family Medicine 03/29/24 documented as of this encounter
--- OUTSIDE RECORDS SUMMARY | 2024-05-14 12:55 | XMS_ITS | Encounter Summary ---
Author Organization Formerly [facility] [place] [address] Care Team Providers Care Cold Working Supervisor Name Role Phone Cedric Rosenbaum DO Primary Care Provider [phone] Encounter Details Date Type Department Care Team (Latest Contact Info) Description 04/29/2024 Travel Social History Tobacco Use Types Packs/Day [...] from your doctor or pharmacy? Never 04/12/2024 [facility] Utilities Answer Date Recorded In the past 12 months has e [employer], gas, oil, or water [employer] threatened to shut off services in your [...] 8:30 AM EDT Office Visit Hematology/Oncology at [address] [phone] Ministerio Kelly MD [facility] [place] [address] Katherine Guadarrama APRN [address] [place] [address] HEMATOLOGY [place] [address] 05/20/2024 9:00 AM EDT Infusion Hematology Oncology at [address] [phone] 05/30/2024 1:00 PM EDT Tech [place] [address] Dena Graves 05/30/2024 4:00 PM EDT Office [place] [address] Derek Evans MD [facility] [place] [address] 06/03/2024 8:30 AM EDT Office Visit Hematology/Oncology at [address] [phone] Ministerio Kelly MD [facility] [place] [address] Katherine Guadarrama BLENDING TANK HELPER [address] [place] [address] DR HEMATOLOGY AND ONGOLOCY [place], [place] [phone] 06/03/2024 9:00 AM EDT Infusion Hematology Oncology at [address] [phone] documented as of this encounter Visit Diagnoses Not on filedocumented in this encounter Care Teams Cold Working Supervisor Relationship Specialty Start Date End Date Cedric Rosenbaum DO [address] [place] [phone] PCP - General Family Medicine 03/29/24 documented as of this encounter
--- OUTSIDE RECORDS SUMMARY | 2024-05-14 12:55 | XMS_ITS | Encounter Summary ---
Author Organization Pending Sale To [facility] Address [facility] [place] [address] Care Team Providers Care Contract Design Agent Name Role Phone Cedric Rosenbaum DO Primary Care Provider [phone] Reason for Visit * Reason Comments Chemotherapy * Treatment/Therapy Plan Authorization (Routine) - Closed Specialty Diagnoses / Procedures Referred By Ovidio t Referred To Contact Diagnoses Malignant neoplasm of head of pancreas Procedures TC GEMCITABINE HCL, 200MG, INJECTION (GEMZAR) [id number] (PACLITAXEL PROTEIN BOUND) Ministerio Kelly MD [facility] [place] [address] Stj Hem Onc Infusion [address] [place] [phone] Referral ID Status Reason Start Date Expiration Date Visits Re quested Visits Authorized [id number] Closed 04/12/2024 04/12/2025 100 Encounter Details Date Type Department Care Team (Late st Contact Info) Description 05/06/2024 9:00 AM EDT Infusion Hematology Oncology at [address] [phone] Malignant neoplasm of head of pancreas Social History Tobacco Use Types Packs/Day Years [...] from your doctor or pharmacy? Never 04/12/2024 [facility] Utilities Answer Date Recorded In the [...] any time in the past 12 m [facility], were you homeless or living in a group home (including now)? No 04/12/2024 IPV Inpatient Questions [...] on file documented as of this encounter Progress Notes * Zahra Soares, RN - 05/06/2024 9:00 AM EDT INFUSION THERAPY ADMINISTRATION NOTES DIAGNOSIS: Pancreatic CA CYCLE #: 1 REASON FOR VISIT: First Time FOLFIRINOX SUBJECTIVE Dylan offers no complaints. OBJECTIVE LAB DATA: adequate for treatment IV ACCESS: Mediport Pre administration: Medication orders independently verified for drug name, route, and dosage per patient's height, weight and BSA by Zahra Soares, and pharmacist REACTIONS (DESCRIPTION, TIME, INTERVENTION AND EFFECTIVENESS) none ASSESSMENT Dylan was awake, alert and tolerated treatment well. Chemo pump disconnect to be completed at [facility] 05/08/24 at 1209pm. PLAN Return to clinic per routine. documented in this encounter Plan of Treatment Upcoming Encounters Date Type Department Care Team (Late st Contact Info) Description 05/20/2024 8:30 AM EDT Office Visit Hematology/Oncology at [address] [phone] Ministerio Kelly MD [facility] [place] [address] Katherine Guadarrama APR[address] [place] [address] 05/20/2024 9:00 AM EDT Infusion Hematology Oncology at [address] [phone] 05/30/2024 1:00 PM EDT Tech [place] [address] Dena Graves 05/30/2024 4:00 PM EDT Office [place] [address] Derek Evans MD [facility] [place] [address] 06/03/2024 8:30 AM EDT Office Visit Hematology/Oncology at [address] [phone] Ministerio Kelly MD [facility] [place] [address] Katherine Guadarrama APRN [address] [place] [address] [place] [address] 06/03/2024 9:00 AM EDT Infusion Hematology Oncology at [address] [phone] documented as of this encounter Visit Diagnoses Diagnosis Malignant neoplasm of head of pancreas documented in this encounter Administered Medications Inactive Administered Medications - up to 3 most recent administrations Medication Order MAR Action Action Date Dose Rate Site aprepitant (Cinvanti) (7.2 mg/mL) injection emulsion 130 mg 130 mg, Intravenous, Administer over 2 Minutes, ONCE, 1 dose, On Thu05/06/24 at 0930, Alternative administration of IV push over 2 minutes is a recommendation from the airfield defence guard. Administer prior to chemotherapy., Routine Given 05/06/2024 9:31 AM EDT 130 mg atropine (0.1 mg/mL) injection 0.5 mg 0.5 mg, Intravenous, Administer over 1 Minutes, ONCE, 1 dose, On Thu05/06/24 at 0930, Administer prior to IRINOtecan, Routine Given 05/06/2024 12:17 PM EDT 0.5 mg dexAMETHasone (Decadron) tablet 10 mg 10 mg, Oral, ONCE, 1 dose, On Thu05/06/24 at 0930, Administer prior to chemotherapy, Routine Given 05/06/2024 9:31 AM EDT 10 mg fluorouraciL (AdruciL) in sodium chloride 0.9% 138 mL infusion (46 Hour - For Home Use) 5,928 mg 5,928 mg (2,400 mg/m2/dose ? 2.47 m2 Treatment Plan BSA from Recorded weight), Intravenous, ONCE, 1 dose, On Thu05/06/24 at 1400, Administer over 46 Hours, Warning Vesicant/Irritant Medication To be infused via an ambulatory infusion CADD Ferraro pump continuously IV at 3 mL/hr for 46 hours. Pump contains a 46 hour supply and provides a daily dose of 1,200 mg/m2/day = 2,400 mg/m2 IV over 46 hours. Given 05/06/2024 2:09 PM EDT 5,928 mg 3 mL/hr IRINOtecan (Camptosar) 280 mg in dextrose 5% 514 mL infusion 280 mg (rounded from 296.4 mg = 120 mg/m2/dose ? 2.47 m2 Treatment Plan BSA from Recorded weight), Intravenous, ONCE, 1 dose, On Thu05/06/24 at 1030, Administer over 90 Minutes, Warning Vesicant/Irritant Medication Administer 30 minutes after the start of the leucovorin. New Bag 05/06/2024 12:22 PM EDT 280 mg 342.7 mL/hr leucovorin (Wellcovorin) 350 mg in dextrose 5% 85 mL infusion 350 mg, Intravenous, ONCE, 1 dose, On Thu05/06/24 at 1030, Administer over 120 Minutes, Administer upon completion of OXALIplatin infusion. Do not administer at a rate faster than 160 milligrams/minute. New Bag 05/06/2024 11:48 AM EDT 350 mg 42.5 mL/hr OXALIplatin (Eloxatin) 100 mg in dextrose 5% 270 mL infusion 100 mg (rounded from 104.975 mg = 42.5 mg/m2/dose ? 2.47 m2 Treatment Plan BSA from Recorded weight), Intravenous, ONCE, 1 dose, On Thu05/06/24 at 1030, Administer over 85 Minutes, Administer first. Compatible with dextrose-containing solution only. Warning Vesicant/Irritant Medication New Bag 05/06/2024 10:03 AM EDT 100 mg 190.6 mL/hr palonosetron (Aloxi) (0.05 mg/mL) injection 0.25 mg 0.25 mg, Intravenous, ONCE, 1 dose, On Thu05/06/24 at 0930, Administer over 30 seconds., Routine Given 05/06/2024 9:31 AM EDT 0.25 mg documented in this encounter Care Teams Contract Design Agent Relationship Specialty Start Date End Date Cedric Rosenbaum DO [address] [place] [phone] PCP - General Family Medicine 03/29/24 documented as of this encounter
--- OUTSIDE RECORDS SUMMARY | 2024-05-14 12:55 | XMS_ITS | Encounter Summary ---
[place] [address] Care Team Providers Care Customer Care Assistant Name Role Phone Cedric Rosenbaum DO Primary Care Provider [phone] Encounter Details Date Type Department Care Team (Late st Contact Info) Description 05/04/2024 2:00 PM EDT Telephone Hematology/Oncology at [address] [phone] Blanche Peng, RD [facility] [place] [address] Social History Tobacco Use Types Packs/Day Years [...] from your doctor or pharmacy? Never 04/12/2024 [facility] Utilities Answer Date Recorded In the [...] any time in the past 12 m [facility], were you homeless or living in a residential (including now)? No 04/12/2024 IPV Inpatient Questions [...] encounter Miscellaneous Notes * Telephone Encounter - Blanche Peng RD - 05/04/2024 2:44 PM EDT Nutrition Note Attempted to reach patient by phone today. Left voicemail with callback number. Will continue to follow. documented in this encounter Plan of Treatment Upcoming Encounters Date Type Department Care Team (Late st Contact Info) Description 05/20/2024 8:30 AM EDT Office Visit Hematology/Oncology at [address] [phone] Ministerio Kelly MD [facility] [place] [address] [address] HEMATOLOGY [place], [place] [phone] 05/20/2024 9:00 AM EDT Infusion Hematology Oncology at [address] [phone] 05/30/2024 1:00 PM EDT Tech [place] [phone] Dena Graves 05/30/2024 4:00 PM EDT Office Visit [place] [phone] Derek Evans MD [facility] [place] [address] 06/03/2024 8:30 AM EDT Office Visit Hematology/Oncology at [address] [phone] Ministerio Kelly MD [facility] [place] [address] [address] HEMATOLOGY AND [place], [place] [phone] 06/03/2024 9:00 AM EDT Infusion Hematology Oncology at [address] [phone] documented as of this encounter Visit Diagnoses Not on filedocumented in this encounter Care Teams Customer Care Assistant Relationship Specialty Start Date End Date Cedric Rosenbaum DO [address] [place] [phone] PCP - General Family Medicine 03/29/24 documented as of this encounter
--- OUTSIDE RECORDS SUMMARY | 2024-05-14 12:55 | XMS_ITS | Encounter Summary ---
[place] [address] Care Team Providers Care Primary Health Care Nurse Name Role Phone Cedric Rosenbaum DO Primary Care Provider [phone] Encounter Details Date Type Department Care Team (Late st Contact Info) Description 05/09/2024 Telephone [place] [phone] Unruly Pope Social History Tobacco Use Types Packs/Day Years [...] from your doctor or pharmacy? Never 04/12/2024 [facility] Utilities Answer Date Recorded In the past 12 months has e [employer], gas, oil, or water [employer] threatened to shut off services in your [...] any time in the past 12 m [facility], were you homeless or living in a intermediate (including now)? No 04/12/2024 [facility] IPV Inpatient [...] encounter Miscellaneous Notes * Telephone Encounter - Unruly Pope - 05/09/2024 10:20 AM EDT Patient called to cancel appointment for today, stated his car broke down. Will call back to reschedule. documented in this encounter Plan of Treatment Upcoming Encounters Date Type Department Care Team (Late st Contact Info) Description 05/20/2024 8:30 AM EDT Office Visit Hematology/Oncology at [address] [phone] Ministerio Kelly MD [facility] [place] [address] [address] HEMATOLOGY AND [place], [place] [address] 05/20/2024 9:00 AM EDT Infusion Hematology Oncology at [address] [phone] 05/30/2024 1:00 PM EDT Tech [place] [address] Dena Graves 05/30/2024 4:00 PM EDT Office [place] [phone] Derek Evans MD [facility] [place] [address] 06/03/2024 8:30 AM EDT Office Visit Hematology/Oncology at [address] [phone] Ministerio Kelly MD [facility] [place] [address] [address] Gu[address] HEMATOLOGY AND [place], [place] [address] 06/03/2024 9:00 AM EDT Infusion Hematology Oncology at [address] [phone] documented as of this encounter Visit Diagnoses Not on filedocumented in this encounter Care Teams Primary Health Care Nurse Relationship Specialty Start Date End Date Cedric Rosenbaum DO [address] [place] [phone] PCP - General Family Medicine 03/29/24 documented as of this encounter
--- OUTSIDE RECORDS SUMMARY | 2024-05-14 12:55 | XMS_ITS | Encounter Summary ---
Author Organization Formerly [facility] [place] [address] Care Team Providers Care Operations Vice President Name Role Phone Cedric Rosenbaum DO Primary Care Provider [phone] Encounter Details Date Type Department Care Team (Late st Contact Info) Description 05/14/2024 Telephone Hematology Oncology Level 1 [place] [phone] Migdalia Cordero MD [facility] DR HEMATOLOGY/[place] [address] Social History Tobacco Use Types Packs/Day Years [...] from your doctor or pharmacy? Never 04/12/2024 [facility] Utilities Answer Date Recorded In [...] were you homeless or living in a assisted (including now)? No 04/12/2024 [facility] IPV Inpatient [...] 8:30 AM EDT Office Visit Hematology/Oncology at [address] [phone] Ministerio Kelly MD [facility] [place] [address] Katherine Guadarrama APRN [address] [place] [address] HEMATOLOGY AND ONGOLOCY [place], [place] [address] 05/20/2024 9:00 AM EDT Infusion Hematology Oncology at [address] [phone] 05/30/2024 1:00 PM EDT Tech [place] [address] PennyPalmer remyjennifer Dee 05/30/2024 4:00 PM EDT Office Visit [place] [address] Derek Evans MD [facility] [place] [address] 06/03/2024 8:30 AM EDT Office Visit Hematology/Oncology at [address] [phone] Ministerio Kelly MD [facility] [place] [address] Katherine Guadarrama, [address] HEMATOLOGY AND ONGOLOCY [place], [place] [phone] 06/03/2024 9:00 AM EDT Infusion Hematology Oncology at [address] [phone] documented as of this encounter Visit Diagnoses Not on filedocumented in this encounter Care Teams Operations Vice President Relationship Specialty Start Date End Date Cedric Rosenbaum DO [address] [place] [phone] PCP - General Family Medicine 03/29/24 documented as of this encounter
--- OUTSIDE RECORDS SUMMARY | 2024-05-14 12:55 | XMS_ITS | Encounter Summary ---
Author Organization [facility] Address [facility] [place] [address] Care Team Providers Care Telephone Interviewer Name Role Phone Cedric Rosenbaum DO Primary Care Provider [phone] Encounter Details Date Type Department Care Team (Late st Contact Info) Description 05/02/2024 Telephone Hematology Oncology Level 1 [place] [phone] Armin Nogueira MD [facility] HEMATOLOGY/[place] [address] Social History Tobacco Use Types Packs/Day Years [...] your doctor or pharmacy? Never 04/12/2024 [facility] Utilities Answer Date Recorded In the past 12 months has [employer], gas, oil, or water [employer] threatened to shut off services in your [...] any time in the past 12 m [facility], were you homeless or living in a nursing home (including now)? No 04/12/2024 DH IPV Inpatient [...] encounter Miscellaneous Notes * Telephone Encounter - Armin Nogueira MD - 05/02/2024 5:35 PM EDT Brief Phone note [facility] 54M with metastatic pancreatic cancer on gem/abraxane Abdominal and poor po intake K 3.0, Mg 0.5 Lipase 86 from [address] with new possible splenomegaly Superior mesenteric vein occluded Mass 5 x 6 x 5 cm Sending him home with some oral oxycodone given persistent abdominal pain. ED provider would like to ensure he has follow up scheduled Follow-up already scheduled for 05/[address] Kelly. documented in this encounter Plan of Treatment Upcoming Encounters Date Type Department Care Team (Late st Contact Info) Description 05/20/2024 8:30 AM EDT Office Visit Hematology/Oncology at [address] [phone] Ministerio Kelly MD [facility] [place] [address] [address] HEMATOLOGY AND [place], [place] [phone] 05/20/2024 9:00 AM EDT Infusion Hematology Oncology at [address] [phone] 05/30/2024 1:00 PM EDT Tech [place] [address] Dena Graves 05/30/2024 4:00 PM EDT Office Visit [place] [phone] Derek Evans MD [facility] [place] [address] 06/03/2024 8:30 AM EDT Office Visit Hematology/Oncology at [address] [phone] Ministerio Kelly MD [facility] [place] [address] Katherine Guadarrama, [address] HEMATOLOGY AND [place], [place] [phone] 06/03/2024 9:00 AM EDT Infusion Hematology Oncology at [address] [phone] documented as of this encounter Visit Diagnoses Not on filedocumented in this encounter Care Teams Telephone Interviewer Relationship Specialty Start Date End Date Cedric Rosenbaum DO [address] [place] [address] PCP - General Family Medicine 03/29/24 documented as of this encounter
--- OUTSIDE RECORDS SUMMARY | 2024-05-14 12:55 | XMS_ITS ---
Author Organization [facility] [place] [address] Care Team Providers Care Kiln Furniture Saw Tender Name Role Phone Cedric Rosenbaum DO Primary Care Provider [phone] Active Problems Problem Noted Date Diagnosed Date Malignant neoplasm of head of pancreas Nausea & vomiting 03/29/2024 Current Oncology Plans [facility] ONC GI PANCREATIC CANCER - MODIFIED FOLFIRINOX (IRINOtecan 150 MG/M2) * Plan Start Date:05/06/2024 Plan Provider:Ministerio Kelly MD Linked Problems Malignant neoplasm of head o f pancreas Treatment Medications Current Day (Day 3 , Cycle 1 - Planned for 05/08/2024) Next Day (Day 1, Cycle 2 - Planned for 05/20/2024) fluorouraciL (AdruciL) in sodium chloride 0.9% 138 mL infusion (46 Hour - For Home Use)IRINOtecan (Camptosar) in dextrose 5% 500 mL infusionIRINOtecan (Camptosar) Recon Solnleucovorin (Wellcovorin) in dextrose 5% or sodium chloride 0.9% for infusionoxaliplatin (Eloxatin)OXALIplatin (Eloxatin) in dextrose 5% 250 mL infusionPump Disconnect: Home Infusion Home Infusion: Pump Disconnect fluorouraciL (AdruciL) in sodium chloride 0.9% 138 mL infusion (46 Hour - For Home Use) 5,928 mgIRINOtecan (Camptosar) 280 mg in dextrose 5% 514 mL infusionleucovorin (Wellcovorin) 350 mg in dextrose 5% 85 mL infusionOXALIplatin (Eloxatin) 100 mg in dextrose 5% 270 mL infusion Past Plans ADULT TREATMENT Plan Name Start Date Discontinue Date Treatment Medications Discontinue Reason Plan Provider Cycles BCN AMB ONC GI PANCREATIC CANCER - GEMcitabine / PACLitaxeL ALBUMIN-BOUND (ABRAXANE) (125 mg/m2 (D 1,8,15) every 4 weeks) 4 05/06/2024 GEMcitabine (Gemzar) in sodium chloride 0.9% 250 mL infusion (Doses >= 100 mg/m2)GEMcitabine (Gemzar) Recon SolnPACLitaxeL albumin-bound (Abraxane) Not Tolerated Ministerio Kelly MD 1 of 4 cycles started Radiation Treatments * No radiation treatments are documented for this patient in [facility]. Treatments may have been administered in another system.
--- OUTSIDE RECORDS SUMMARY | 2024-05-14 12:56 | XMS_ITS | Encounter Summary ---
[place] [address] Care Team Providers Care [employer] Client [employer] Consultant Name Role Phone Cedric Rosenbaum DO Primary Care Provider [phone] Reason for Visit * Reason Onset Date Comments Bloated 04/26/2024 Dehydration 04/26/2024 Encounter Details Date Type Department Care Team (Late st Contact Info) Description 04/26/2024 Telephone Hematology/Oncology at [address] [phone] Iván De Luna RN Bloated; Dehydration Social History Tobacco Use Types Packs/Day Years [...] from your doctor or pharmacy? Never 04/12/2024 [facility] Utilities Answer Date Recorded In the [...] any time in the past 12 m [facility], were you homeless or living in a [...] encounter Miscellaneous Notes * Telephone Encounter - Iván De Luna RN - 04/26/2024 10:03 AM EDT Caller: Dylan Michele Relationship: Self Clarified Two Patient Identifiers: [x] Reason For Call: Bloated and Dehydration Assessment/Symptom Review (onset, location, duration, what makes it better or worse, pertinent positives and negatives): Spoke with Dylan Michele regarding current symptoms. He received his first cycle Gemzar/Abraxane for pancreatic cancer on 04/22/24. He is calling today to report feeling abdominal pain and bloating whenever he tries any oral intake. He has not ate or drank well since Thursday. He feels dehydrated. Hedoes not feel nauseous, but when he puts something in his belly (like an Ensure this morning) he feels like he did before he was diagnoses with cancer, before he had duodenal stent placed. He took MOM to have BM and had 3-4 loose episodes yesterday. He is not burping or passing flatus. He did tryODT-Zofran with no effect, although believes that may be contributing to his new rash, started Thursday. He tried Benadryl with no effect, has small red bumps around trunk, neck, arms and itchiness didnot improve. Discussed need for evaluation for possible dehydration, blockage and allergy symptoms.He favors going to [facility] ED for this and will call sister for ride. Review of Systems Related to Reason for Call: System POS NEG Not Applicable Head (ENT /Neuro) [] [x] [] Cardiac [] [x] [] Respiratory [] [x] [] GI [x] [] [] [x] [] [] Musculoskeletal [] [x] [] Integumentary [x] [] [] Mental Health [] [x] [] Select Specific Decision Support Tool Used: DH Standard or Protocol Disposition/Plan of Care: Emergency Room via personal vehicle now --pt will have sister bring him to [facility] for ED evaluation Patient/Caregiver verbalizes understanding of plan of care: Yes Patient/Caregiver agrees with plan: Yes Advised patient/caregiver to: NA; patient advised immediate ER Patient/Caregiver demonstrates understanding via teach back: Yes documented in this encounter Plan of Treatment Upcoming Encounters Date Type Department Care Team (Late st Contact Info) Description 05/20/2024 8:30 AM EDT Office Visit Hematology/Oncology at [address] [phone] Ministerio Kelly MD [facility] [place] [address] Katherine Guadarrama APRN [address] [place] [address] HEMATOLOGY AND [place]OLOCY [place] [phone] 05/20/2024 9:00 AM EDT Infusion Hematology Oncology at [address] [phone] 05/30/2024 1:00 PM EDT Tech Visit [place] [address] Dena Graves 05/30/2024 4:00 PM EDT Office Visit [place] [address] Derek Evans MD [facility] [place] [address] 06/03/2024 8:30 AM EDT Office Visit Hematology/Oncology at [address] [phone] Ministerio Kelly MD [facility] [place] [address] Katherine Guadarrama, [address] [place] [address] 06/03/2024 9:00 AM EDT Infusion Hematology Oncology at [address] [phone] documented as of this encounter Visit Diagnoses Not on filedocumented in this encounter Care Teams [employer] Client [employer] Consultant Relationship Specialty Start Date End Date Cedric Rosenbaum DO [address] [place] [phone] PCP - General Family Medicine 03/29/24 documented as of this encounter
--- OUTSIDE RECORDS SUMMARY | 2024-05-14 12:56 | XMS_ITS | Encounter Summary ---
Author Organization [facility] [place] [address] Care Team Providers Care Smearer Name Role Phone Cedric Rosenbaum DO Primary Care Provider [phone] Encounter Details Date Type Department Care Team (Latest Contact Info) Description 04/12/2024 Travel Social History Tobacco Use Types Packs/Day Years Used Date Smoking Tobacco: Former Cigarettes Alcohol Use Standard Drinks/Week Comments Not Currently 182 (1 standard drink = 0.6 oz p ure alcohol) B1300 Health Literacy Answer Date Recor ded How often do you need to hav e someone help you when you read instructions, pamphlets, or other written material from your doctor or pharmacy? Never 04/12/2024 [facility] Utilities Answer Date Recorded In the [...] time in the past 12 m [facility], were you homeless or living in a alf (including now)? No 04/12/2024 [facility] Inpatient Questions Answer Date Recorded Does Anyone Try to Keep You From Having Contact with Others or Doing Things Outside Your Home? no 03/30/2024 Feels Threatened by Someone no 03/03 Feels Unsafe at Home or Work/School no 03/30/2024 Physical Signs of Abuse Present no 03/30/2024 Sex and Gender Information Value Date Recorded Sex Assigned at Not on file Gender Identity Not on file Sexual Orientation Not on file documented as of this encounter Plan of Treatment Upcoming Encounters Date Type Department Care Team (Late st Contact Info) Description 05/20/2024 8:30 AM EDT Office Visit Hematology/Oncology at [address] [phone] Ministerio Kelly MD [facility] [place] [address] Katherine Guadarrama APRN [address] [place] [address] DR [place]Y [place] [address] 05/20/2024 9:00 AM EDT Infusion Hematology Oncology at [address] [phone] 05/30/2024 1:00 PM EDT Tech [place] [address] Dena Graves 05/30/2024 4:00 PM EDT Office [place] [address] Derek Evans MD [facility] [place] [address] 06/03/2024 8:30 AM EDT Office Visit Hematology/Oncology at [address] [phone] Ministerio Kelly MD [facility] [place] [address] Katherine Guadarrama APR[address] HEMATOLOGY AND ONGOLOCY [place], [place] [phone] 06/03/2024 9:00 AM EDT Infusion Hematology Oncology at [address] [phone] documented as of this encounter Visit Diagnoses Not on filedocumented in this encounter Care Teams Smearer Relationship Specialty Start Date End Date Cedric Rosenbaum DO [address] [place] [phone] PCP - General Family Medicine 03/29/24 documented as of this encounter
--- OUTSIDE RECORDS SUMMARY | 2024-05-14 12:56 | XMS_ITS | Encounter Summary ---
[place] [address] Care Team Providers Care Licensed Tax Consultant Name Role Phone Cedric Rosenbaum DO Primary Care Provider Reason for Referral * Diagnostic Test (Routine) - Closed Specialty Diagnoses / Procedures Referred By Contac t Referred To Contact Radiology Diagnoses Malignant neoplasm of head of pancreas Procedures IR Mediport Placement Ministerio Kelly MD [facility] [address] [place] [address] Referral ID Status Reason Start Date Expiration Date V isits Requested Visits Authorized [id number] Closed Specialty Service Requested 04/12/2024 10/12/2025 1 1 Reason for Visit * Diagnostic Test (Routine) - Closed Specialty Diagnoses / Procedures Referred By Contac t Referred To Contact Radiology Diagnoses Malignant neoplasm of head of pancreas Procedures IR Mediport Placement Ministerio Kelly MD [facility] [address] [facility] [place] [address] Referral ID Status Reason Start Date Expiration Date V isits Requested Visits Authorized [id number] Closed Specialty Service Requested 04/12/2024 10/12/2025 1 1 Encounter Details Date Type Department Care Team (Latest Contact Info) Description 04/15/2024 11:34 AM EDT - 04/15/2024 11:59 PM EDT Hospital Encounter Radiology at [facility], [place] [address] Ministerio Kelly MD [facility] [address] Malignant neoplasm of head of pancreas Discharge Disposition: Home Social History Tobacco Use Types Packs/Day Years [...] from your doctor or pharmacy? Never 04/12/2024 [facility] Utilities Answer Date Recorded In [...] were you homeless or living in a fci (including now)? No 04/12/2024 [facility] IP[facility] Inpatient [...] Sign Reading Time Taken Comments Blood Pressure 130/78 04/15/2024 1:47 PM EDT Pulse 60 04/15/2024 1:35 PM EDT Temperature 35.7 ??C (96.2 ??F) 04/15/2024 1:47 PM ED T Respiratory Rate 16 04/15/2024 1:47 PM EDT Oxygen Saturation 100% 04/15/2024 1:47 PM EDT Inhaled Oxygen Concentration - - Weight - - Height - - Body Mass Index - - documented in this encounter Discharge Instructions * Discharge Instructions* Monico Bee RN - 04/15/2024 1:02 PM EDT Images from the original note were not included. [facility] Department of Vascular and Interventional Radiology Discharge Instructions for your Chest Port You have received a ???Power Port?? , which provides access for infusions and blood draws. What makes this a ???Power Port?? is the unique ability to ???power inject?? contrast (intravenous dye) through the port when getting a CT scan, which produces superior images (pictures). Patients who don???t have these special ports need to have an IV started if they need dye injected for their CT scan. Your port is printed with the letters ???CT?? which can be detected by x- ray to identify it as a ???Power Port?? . You will be provided with an ID card stating the irrigator and type of port you have. Please carry this with you in a safe place. Bandage: There is a sterile dressing over the port site consisting of small gauze with a clear dressing (Tegaderm or [id number] ). This dressing should be left in place for 48 hours. If the clear dressing becomes loose you should place tape over the edges to secure it in place. Note: There may be [place]-correa (skin glue) also, allow this to flake off. Pain: Apply ice bag to site (s) at 30 minute intervals (30 minutes on and 30 minutes off) for 24 hours?? . May use Tylenol as needed for pain and/or bruising after 24 hours. Bathing: Do not take a shower until 48 hours after your port is placed; after this time you may shower with the dressing in place, then remove it and pat your skin dry. After 48 hours, we recommend that you cover the area with THE AQUA GUARD PROVIDED for 1 week while showering, facing away from theshower stream. You may use a bandaid to cover the site after the 48 hours are up if there is any drainage. No tub baths, whirlpools or swimming for one week following port placement. Flushing the mediport: If your port has not been used, it must be flushed every 30 days. What to expect when your port is accessed: 1. You may feel tenderness the first few times it is accessed but generally this subsides over time. Ask your healthcare provider to use a local anesthetic on the site if discomfort is a problem for you. You may ask for a prescription for a topical cream (EMLA) from your clinician; you may apply athome prior to your appointments, to help numb the skin over your port. 2. The clinician should be wearing sterile gloves and a mask during the access procedure. Anyone inthe room with you should also have a mask on. 3. The skin over and 2 inches around the port should be cleaned with a disinfectant 4. Tell the clinician if you would like the skin numbed (lidocaine) before the access needle is placed. 5. Unless you are unable to take heparin (blood thinner), the port should be injected with a heparin solution before deaccess (at end of each treatment or blood draw). When to call your healthcare provider: If you notice bleeding from the puncture site in your neck, or from the port incision on your chest, you should apply firm pressure over the site for 10-15 minutes, keeping the site covered. Call if you are still bleeding after 10-15 minutes. If you develop pain, redness, drainage or swelling at or around the port site, or the puncture sitein the neck If you develop fever (elevation of more than 2 degrees or greater than 101F) and/or shaking chills When to call the Interventional Radiology Department: Please call with any questions or concerns. If it is during regular office hours, please call [phone]. If it is after regular office hours, or on weekends or holidays, please call [phone] and ask to speak to the Director [place] functional support analyst for Interventional Radiology. XXX You have received medication during your procedure to help lessen anxiety and keep you comfortable. These medications affect judgement and reaction time. We recommend that you do not drive, operate equipment, sign any important documents, or smoke unattended for 24 hours following your procedure. Because of the sedation, be careful on stairs, as you may be unsteady on your feet. You may resume your regular diet as tolerated. IV site -- slight redness, or tenderness is normal, you can use a warm compress. If tenderness and redness increases or foul drainage occurs, please contact your M. D. Revised 08/18/19 documented in this encounter Medications at Time of Discharge Medication Sig Dispensed Refills Start Date End Date colchicine (Colcrys) 0.6 mg tablet Take 0.6 mg by mouth daily. high protein nutritional supplement, lactose-free (Ensure) Liquid Take 1 Bottle by mouth 3 times daily. 237 mL 3 04/12/2024 alum-mag hydroxide-simeth (Maalox) 200-200-20 mg/5 mL Suspension Take 10 mLs by mouth 3 times daily as needed. 355 mL 04/06/2024 potassium chloride (Klor-Con, K-Tab) 20 mEq ER tablet Take 1 tablet by mouth daily. 10 tablet 04/06/2024 ondansetron ODT (Zofran-ODT) 4 mg disintegrating tablet Take 1 tablet by mouth every 8 hours as needed for Nausea. 20 tablet 04/06/2024 pantoprazole EC (Protonix) [address] tablet Take 1 tablet by mouth daily. 90 tablet 3 04/07/2024 simethicone (Mylicon) 40 mg/0.6 mL Drops, Suspension Take 0.6 mLs by mouth 4 times daily. 30 mL 04/06/2024 zwiyqe-rumpesdt-bnuzfrh (Zenpep) 25,000-79,000- 105,[address] capsule Take 2 capsule by mouth with meals three times a day and 1 capsule by mouth with snacks 2-3 times a day (max 9/day) 270 capsule 11 04/06/2024 carvediloL (Coreg) 6.25 mg tablet Take 6.25 mg by mouth 2 times daily (with meals). multivitamin with minerals (One-A-Day) Tablet Take 1 tablet by mouth daily. 30 tablet 5 04/13/2024 04/29/2024 nm-hz-ikcrb-V79-wxfxlil- lutein (Theragran-M Premier 50 Plus) 400-250-375 mcg TabletIndications:Modera te protein-calorie malnutrition Take 1 tablet by mouth daily. 30 tablet 5 04/12/2024 04/29/2024 docusate sodium (Colace) 100 mg capsule Take 1 capsule by mouth 2 times daily for 10 days. 20 capsule 04/06/2024 04/16/2024 multivitamin with minerals (Thera M) 9 mg iron-400 mcg Tablet Take 1 tablet by mouth daily. 90 tablet 3 04/07/2024 04/29/2024 documented as of this encounter Progress Notes * Senthil Ramirez, RN - 04/15/2024 1:16 PM EDT ANGIO NURSING DATABASE Name: Dylan Michele Date of : 1970 AGE: 53 y.o. Address: [facility] Suri Alford [address] [place] [id number] Phone: [phone] (home) Mobile: Telephone Information: Referring Provider: Ministerio Kelly REASON FOR VISIT: Order Questions Answers Where will study be performed? [facility] Radiology [120] To be scheduled Ordering department to coordinate scheduling Prefered insertion location: No Preference Is the patient on anticoagulant / antiplatelet therapy ? No Reason for exam and clinical history: Pancreatic cancer, needs mediport for chemotherapy Exam/Procedure requested: single lumen mediport What labs need to be collected during imaging study? none Planned procedure: Mediport implant - single lumen Labs to be performed day of procedure: No labs Sedation: Moderate (Conscious sedation) Prophylactic antibiotic : None Contrast: No contrast Additional medications for procedure: Lidocaine Position: Supine Consent: Pending Medications to discontinue (and days held): None Case Urgency:: G2- Elective Outpatient intervention within 8-14 days Allergies Allergen Reactions Nsaids (Non-Steroidal Anti-Inflammatory Drug) Other (See Comments) Lactose Prednisone Pertinent PMH: Patient Active Problem List Diagnosis Code Nausea & vomiting R11.2 Malignant neoplasm of head of pancreas C25.0 Date/Procedure Meds Given/Comments Mediport placement IV Fentanyl 100mcg, IV Versed 2mg 1242 to procedure room 1 via stretcher. Onto table supine. All monitors, O2, safety strap in place.Meds per protocol. Laboratory Results: Lab Results Component Value Date CREATININE 0.53 (L) 04/12/2024 Lab Results Component Value Date K 4.0 04/12/2024 Lab Results Component Value Date PLATELET 243 04/12/2024 documented in this encounter H&P Notes * Yaima Arredondo PA - 04/15/2024 11:49 AM EDT Interventional Radiology Interval H&P: Procedure: Mediport implant The patient's history and physical exam have been reviewed and completed. There has been no interval change from that of the pre-operative history and physical exam done within the last 30 days. Physical Exam: General: Awake, alert, oriented Cardiovascular: Regular rhythm, Normal rate Pulmonary: Breath sounds clear to auscultation Meds: Current medications reviewed. No medications held. Labs: No new relevant labs. The planned procedure (and sedation plan if appropriate), its benefits and risks, and alternatives were discussed with the patient. The patient consented to the procedure. The indications for the procedure are still present. Pre-sedation Assessment: Sedation Plan: moderate (conscious sedation) ASA: 2: Patient with mild systemic disease Mallampati: I: soft palate, fauces, tonsillar pillars and uvula can be seen Confirm NPO status: Yes History of anesthetic complications: No Current medications reviewed: Yes Allergies reviewed: Yes Source Note - Yaima Arredondo PA - 04/12/2024 12:19 PM EDT Images from the original note were not included. Interventional Radiology Focused Pre-procedure H&P: PCP: Cedric Rosenbaum DO Referring Provider: Ministerio Kelly MD Planned procedure: Mediport implant - single lumen Procedure indication: Pancreatic cancer, need for long-term durable venous access for systemic chemotherapy IR workflow: Procedure request received through Interventional Radiology eDH order queue. There are no answered order specific questions. History of Present Illness: Per chart review, Dylan Michele is a 53 y.o. male with PMH of pancreatic cancer who presents to Interventional Radiology to undergo Mediport implant. First infusion is not yet scheduled. Past medical history is significant for heart failure with preserved EF, alcohol use disorder, peripheral neuropathy, prior RI, and CHF. Remainder of patient's medical and surgical history, allergies, medications, and social/family history obtained below as previously outlined in patient's medical record. IR History: None listed Anticoagulation/Antiplatelet: None listed Labs: Lab Results Component Value Date HGB 13.6 (L) 04/03/2024 HCT 42.8 04/03/2024 WBC 8.4 04/03/2024 PLATELET 245 04/03/2024 BUN 5 (L) 04/06/2024 CREATININE 0.59 (L) 04/06/2024 ALBUMIN 2.5 (L) 04/02/2024 BILITOT 0.6 04/02/2024 AST 14 04/02/2024 ALT 13 04/02/2024 ALKPHOS 94 04/02/2024 Allergies: Nsaids (non-steroidal anti-inflammatory drug), Lactose, and Prednisone Imaging: CT chest 03/31/24 Assessment: 53 y.o. male with pancreatic cancer presenting to Interventional Radiology for Mediportimplant. Plan Planned procedure: Mediport implant - single lumen Labs to be performed day of procedure: No labs Sedation: Moderate (Conscious sedation) Prophylactic antibiotic : None Contrast: No contrast Additional medications for procedure: Lidocaine Position: Supine Consent: Pending Medications to discontinue (and days held): None Cytopathology presence needed: No Case Urgency:: G2- Elective Outpatient intervention within 8-14 days Medications: Current Outpatient Medications on File Prior to Visit Medication Sig Dispense Refill fe-ya-gvdno-Z97-wsbupwa-yzirzc (Theragran-M Premier 50 Plus) 400-250-375 mcg Tablet Take 1 tablet by mouth daily. 30 tablet 5 high protein nutritional supplement, lactose-free (Ensure Clear) Liquid Take 1 Bottle by mouth 3 times daily. 02117 mL 5 alum-mag hydroxide-simeth (Maalox) 200-200-20 mg/5 mL Suspension Take 10 mLs by mouth 3 times dailyas needed. 355 mL 0 docusate sodium (Colace) 100 mg capsule Take 1 capsule by mouth 2 times daily for 10 days. 20 capsule 0 multivitamin with minerals (Thera M) 9 mg iron-400 mcg Tablet Take 1 tablet by mouth daily. (Patient not taking: Reported on 04/12/2024) 90 tablet 3 potassium chloride (Klor-Con, K-Tab) 20 mEq ER tablet Take 1 tablet by mouth daily. 10 tablet 0 ondansetron ODT (Zofran-ODT) 4 mg disintegrating tablet Take 1 tablet by mouth every 8 hours as needed for Nausea. (Patient not taking: Reported on 04/12/2024) 20 tablet 0 pantoprazole EC (Protonix) [address] tablet Take 1 tablet by mouth daily. 90 tablet 3 simethicone (Mylicon) 40 mg/0.6 mL Drops, Suspension Take 0.6 mLs by mouth 4 times daily. 30 mL 0 vsencg-hyqsjtbs-khjtlbo (Zenpep) 25,000-79,000- 105,[address] capsule Take 2 capsule by mouth with meals three times a day and 1 capsule by mouth with snacks 2-3 times a day (max 9/day) 270 [id number] carvediloL (Coreg) 6.25 mg tablet Take 6.25 mg by mouth 2 times daily (with meals). No current facility-administered medications on file prior to visit. Past Medical/Surgical history: Patient Active Problem List Diagnosis Code Nausea & vomiting R11.2 Malignant neoplasm of head of pancreas C25.0 No past medical history on file. Past Surgical History: Procedure Laterality Date PRG FLUOROSCOPY EXAM UP TO 1 HR PHY OR OTH HLTH CARE PROV N/A 03/31/2024 FLUOROSCOPY (WRVU 0.3) performed by Eulogio Marcos MD at [facility] ENDOSCOPY PRO EDG FLEXIBLE TRANSORAL ENDOSCOPIC STENT PLACEMENT W/WIRE & DILATION N/A 03/31/2024 EGD, TRANSORAL; WITH PLACEMENT OF ENDOSCOPIC STENT (WRVU 3.92) performed by Eulogio Marcos MD at [facility] ENDOSCOPY PRO UPGI ENDOSCOPY W/US FN BX N/A 03/31/2024 EGD, W US GUIDED FINE NEEDLE ASPIRATION/BIOPSY (WRVU 4.16) performed by Eulogio Marcos MD at [facility] ENDOSCOPY Social History and Habits: Social History Tobacco Use Smoking status: Former Current packs/day: 0.50 Types: Cigarettes Vaping Use Vaping status: Never Used Substance Use Topics Alcohol use: Not Currently Alcohol/week: 182.0 standard drinks of alcohol Types: 182 Shots of liquor per week Drug use: Not Currently Types: Marijuana Significant Family History: No family history on file. Pertinent ROS: as per HPI Physical Exam: Pending (to be performed in IR the day of procedure) ASA: Pending (to be assessed in IR the day of procedure) Mallampati class: Pending (to be assessed in IR the day of procedure) 04/12/2024 Yaima Arredondo PA-C documented in this encounter Plan of Treatment Upcoming Encounters Date Type Department Care Team (Late st Contact Info) Description 05/20/2024 8:30 AM EDT Office Visit Hematology/Oncology at [address] [phone] Ministerio Kelly MD [facility] [address] Katherine Guadarrama APRN [address] [place] [address] HEMATOLOGY AND ONGOLOCY [place], [place] [phone] 05/20/2024 9:00 AM EDT Infusion Hematology Oncology at [address] [phone] 05/30/2024 1:00 PM EDT Tech [place] [address] EmilianatalhabasilPalmerjennifer Dee 05/30/2024 4:00 PM EDT Office [place] [phone] Derek Evans MD [facility] [place] [address] 06/03/2024 8:30 AM EDT Office Visit Hematology/Oncology at [address] [phone] Ministerio Kelly MD [facility] [place] [address] Katherine Guadarrama, [address] HEMATOLOGY AND ONGOLOCY [place] [phone] 06/03/2024 9:00 AM EDT Infusion Hematology Oncology at [address] [phone] documented as of this encounter Procedures Procedure Name Priority Date/Time Associated Diagnosis Comments IR MEDIPORT PLACEMENT Routine 04/15/2024 1:00 PM EDT Malignant neoplasm of head of pancreas documented in this encounter Results * IR Mediport Placement (04/15/2024 1:00 PM [...] cc Ministerio Kelly MD IMG IR ORDERABLES documented in this encounter Visit Diagnoses Diagnosis Malignant neoplasm of head of pancreas documented in this encounter Administered Medications Inactive Administered Medications - up to 3 most recent administrations Medication Order MAR Action Action Date Dose Rate Site fentaNYL (pf) (50 mcg/mL) multi-dose injection 25-50 mcg 25-50 mcg, Intravenous, EVERY 3 MIN PRN, Starting on Thu04/15/24 at 1153, Until Thu04/15/24 at 1359, Pain, per unit protocol, For use in Interventional Radiology (IR) only for procedural sedation with direct provider supervision and verbal order. - Start dose: 50 mcg (reduce dose to 25 mcg if history of sedation sensitivity). - Titration dose: 25-50 mcg IV, (based on patient response) every 3 minutes PRN to maintain procedural pain less than 2 per Pain Scale. Maximum dose: 50 mcg/dose, 250 mcg/hour, Angio/IR (Intra-Procedure), Routine Given 04/15/2024 1:15 PM EDT 25 mcg Given 04/15/2024 1:10 PM EDT 25 mcg Given 04/15/2024 1:00 PM EDT 25 mcg lidocaine (Xylocaine) 1% (10 mg/mL) injection 10 mg 10 mg, Subcutaneous, ONCE, 1 dose, On Thu04/15/24 at 1215, For use in Interventional Radiology (IR) only for procedure with direct provider supervision and verbal order., Angio/IR (Intra-Procedure), Routine Given 04/15/2024 1:16 PM EDT 10 mg lidocaine-EPINEPHrine (1% - 1:100,000) injection 20 mL 20 mL, Intradermal, ONCE, 1 dose, On Thu04/15/24 at 1215, For use in Interventional Radiology (IR) only for procedure with direct provider supervision and verbal order. *This order is NOT a Venous Ablation Order / Dose., Angio/IR (Intra-Procedure), Routine Given 04/15/2024 12:20 PM EDT 20 mLs midazolam (pf) (Versed) (1 mg/mL) multi-dose injection 0.5-1 mg 0.5-1 mg, Intravenous, EVERY 3 MIN PRN, Starting on Thu04/15/24 at 1153, Until Thu04/15/24 at 1359, Sedation, For use in Interventional Radiology (IR) only for procedural sedation with direct provider supervision and verbal order. - Start dose: 1 mg (Reduce dose to 0.5 mg if history of sedation sensitivity). - Titration dose: 0.5 mg - 1 mg (based on patient response) every 3 minutes PRN to obtain RASS score of -3. Maximum dose: 1 mg/dose, 5 mg/hour., Angio/IR (Intra-Procedure), Routine Given 04/15/2024 1:20 PM EDT 0.5 mg Given 04/15/2024 1:15 PM EDT 0.5 mg Given 04/15/2024 1:05 PM EDT 0.5 mg documented in this encounter Care Teams Licensed Tax Consultant Relationship Specialty Start Date End Date Cedric Rosenbaum DO [address] [place] [phone] PCP - General Family Medicine 03/29/24 documented as of this encounter
--- OUTSIDE RECORDS SUMMARY | 2024-05-14 12:56 | XMS_ITS | Encounter Summary ---
[place] [address] Care Team Providers Care Sr. Payroll Processor Name Role Phone Cedric Rosenbaum DO Primary Care Provider [phone] Encounter Details Date Type Department Care Team (Latest Contact Info) Description 04/12/2024 12:34 PM EDT - 04/12/2024 11:59 PM EDT Hospital Encounter [place]ology [place] [address] Malignant neoplasm of head of pancreas Discharge [...] from your doctor or pharmacy? Never 04/12/2024 [employer] Utilities Answer Date Recorded In the past 12 months has [employer], gas, oil, or water [id number] threatened to shut off services in your [...] any time in the past 12 m [facility], were you homeless or living [...] on file documented as of this encounter Medications at Time of Discharge Medication Sig Dispensed Refills Start Date End Date high protein nutritional supplement, lactose-free (Ensure) Liquid [...] mouth 4 times daily. 30 mL 04/06/2024 lsyzmt-zvemhnuw-tktiwdy (Zenpep) 25,000-79,000- 105,[address] capsule Take [...] mouth daily. 30 tablet 5 04/13/2024 04/29/2024 ex-tp-wdszf-B09-exvilzx- lutein (Theragran-M Premier 50 Plus) 400-250-375 mcg [...] 04/07/2024 04/29/2024 documented as of this encounter Plan of Treatment Upcoming Encounters Date Type Department Care Team (Late st Contact Info) Description 05/20/2024 8:30 AM EDT Office Visit Hematology/Oncology at [address] [phone] Ministerio Kelly MD [facility] [place] [address] Katherine Guadarrama APRN [address] [place] [address] HEMATOLOGY [place] ONGOLOCY [place], [place] [id number] 05/20/2024 9:00 AM EDT Infusion Hematology Oncology at [address] [phone] 05/30/2024 1:00 PM EDT Tech [place] [address] Dena Graves 05/30/2024 4:00 PM EDT Office [place] [address] Derek Evans MD [facility] [place] [address] 06/03/2024 8:30 AM EDT Office Visit Hematology/Oncology at [address] [phone] Ministerio Kelly MD [facility] [place] [address] Katherine Guadarrama APRN [address] [place] [address] [place] [address] 06/03/2024 9:00 AM EDT Infusion Hematology Oncology at [address] [phone] documented as of this encounter Procedures Procedure Name Priority Date/Time Associated Diagnosis Comments PGX ONCOLOGY Routine 04/12/2024 12:44 PM EDT [...] pancreas documented in this encounter Results * Differential, Automated (04/12/2024 12:44 PM EDT) Neutrophils % 67.8 % [facility] Neutr Abs (ANC) 5.02 1.70 - 6.10 x10(3)/[facility] Lymphocytes % 21.3 % [facility] Lymphocytes Abs 1.6 0.9 - 3.2 x10(3)/[facility] Monocytes % 9.3 % [facility] Monocyte Abs 0.7 0.3 - 0.9 x10(3)/[facility] Eosinophils % 0.8 % [facility] Eosinophils Abs 0.1 0.0 - 0.4 x10(3)/[facility] Basophils % 0.4 % [facility] Basophils Abs 0.0 0.0 - 0.1 x10(3)/[facility] Immature Gran % 0.40 % [facility] Comment: Immature granulocytes(IG's)percentage and absolute count will include metamyelocytes, myelocytes, and promyelocytes. Blood smears from CBCs yielding IG's will be scanned manually for concordance. If this scan disagrees with the automated IG or if promyelocytes are noted, a manual differential will be performed. [place] Gran Abs 0.03 0.00 - 0.04 x10(3)/[facility] Blood 04/12/2024 12:4 4 PM EDT 04/12/2024 12:53 PM EDT Narrative Resulting Agency Comment Spec In Lab Ministerio Kelly MD HEMATOLOGY ORDERABLE S [facility] [place] [address] * (ABNORMAL) Hemogram (04/12/2024 12:44 PM EDT) WBC 7.4 4.0 - 9.5 x10(3)/[facility] RBC 4.26(L) 4.58 - 5.54 x10(6)/[facility] Hemoglobin 12.4(L) 13.7 - 16.5 g/dL [facility] Hematocrit 38.4(L) 40.5 - 48.5 % [facility] MCV 90.1 82.9 - 93.1 [facility] MCH 29.1 27.5 - 32.1 pg [facility] MCHC 32.3 32.0 - 35.7 g/dL [facility] Platelets 243 145 - 357 x10(3)/[facility] RDWSD 44.9 36.0 - 45.0 [facility] RDWCV 13.7 11.4 - 13.8 % [facility] MPV 9.0 7.6 - 12.9 [facility] nRBC % Auto 0.0 % [facility] nRBC Abs Auto 0.000 0.000 - 0.000 x10(3)/[facility] Blood 04/12/2024 12:4 4 PM EDT 04/12/2024 12:53 PM EDT Narrative Resulting Agency Comment Spec In Lab Ministerio Kelly MD HEMATOLOGY ORDERABLE S [facility] [place] [address] * PGx Oncology (04/12/2024 12:44 PM EDT) Blood (Blood, Venous) 04/12/2024 12:44 PM EDT 04/12/2024 2:02 PM EDT Narrative Resulting Agency Comment Spec In Lab Ministerio Kelly MD CHEMISTRY ORDERABLES [facility] [place] [address] * (ABNORMAL) Carbohydrate Antigen 19-9 (04/12/2024 12:44 PM EDT) [facility] [place] 19-9 168.0(H) <=35.0 u/ml [facility] Comment: This result was generated using a Mychal Rosa Elena immunoassay. ??Results obtained from other methods or manufacturers cannot be used interchangeably with this method. Blood 04/12/2024 12:4 4 PM EDT 04/12/2024 12:53 PM EDT Narrative Resulting Agency Comment Spec In Lab Ministerio Kelly MD CHEMISTRY ORDERABLES [facility] [place] [address] * (ABNORMAL) Comprehensive metabolic panel (non-fasting) (04/12/2024 12:44 PM EDT) [facility] Glucose Lvl 89 65 - 199 mg/dL [facility] Comment:Diabetes: >=200 mg/d L plus symptoms BUN 8(L) 10 - 20 mg/dL [facility] Creatinine 0.53(L) 0.80 - 1.50 mg/dL [facility] Sodium 140 135 - 145 mmol/L [facility] Potassium 4.0 3.5 - 5.0 mmol/L [facility] Comment: Please note: ??Patients with WBC >100,000 may have falsely elevated Potassium levels. ??For accurate Potassium quantification in these patients send serum separator tube (gold top) for subsequent determinations. ??Contact the Clinical Chemistry Laboratory if there are any questions. Chloride 102 98 - 107 mmol/L [facility] CO2 31 22 - 31 mmol/L [facility] Anion Gap 7 5 - 15 mmol/L [facility] Calcium 9.2 8.5 - 10.5 mg/dL [facility] Total Protein 5.9(L) 6.1 - 8.0 g/dL [facility] Albumin 3.2 3.2 - 5.2 g/dL [facility] AST 13 0 - 39 unit/L [facility] ALT 14 0 - 55 unit/L [facility] Alk Phos 96 40 - 130 unit/L [facility] Total Bilirubin 0.5 0.2 - 1.3 mg/dL [facility] Estimated GFR 121 >=60 mL/min/1. 73 m?? [facility] Comment: This patient's estimated GFR [...] Kelly MD CHEMISTRY ORDERABLES Performing Organization Address [facility] Co de Phone Number [facility] [place] [address] * Research Venipuncture (04/12/2024 12:44 PM EDT) Research Venipuncture Drawn [facility] Blood 04/12/2024 12:4 4 PM EDT 04/12/2024 1:08 PM EDT Narrative Resulting Agency Comment Spec In Lab Ministerio Kelly MD CHEMISTRY ORDERABLES Performing Organization Address [facility]/ZIP Co de Phone Number [facility] [place] [address] documented in this encounter Visit Diagnoses Diagnosis Malignant neoplasm of head of pancreas documented in this encounter Care Teams Sr. Payroll Processor Relationship Specialty Start Date End Date Cedric Rosenbaum DO [address] [place] [phone] PCP - General Family Medicine 03/29/24 documented as of this encounter
--- OUTSIDE RECORDS SUMMARY | 2024-05-14 12:56 | XMS_ITS | Encounter Summary ---
Author Organization [facility] Address [facility] [place] [address] Care Team Providers Care Director Operating Name Role Phone Cedric Rosenbaum DO Primary Care Provider [phone] Reason for Visit * Reason Comments Chemotherapy [id number] * Treatment/Therapy Plan Authorization (Routine) - Closed Specialty Diagnoses / Procedures Referred By Ovidio dallas Referred To Contact Diagnoses Malignant neoplasm of head of pancreas Procedures TC GEMCITABINE HCL, 200MG, INJECTION (GEMZAR) [id number] (PACLITAXEL PROTEIN BOUND) Ministerio Kelly MD [facility] [place] [address] Stj Hem Onc Infusion [address] [place] [phone] Referral ID Status Reason Start Date Expiration Date Visits Re quested Visits Authorized [id number] Closed 04/12/2024 04/12/2025 100 Encounter Details Date Type Department Care Team (Late st Contact Info) Description 04/22/2024 9:00 AM EDT Infusion Hematology Oncology at [address] [phone] Malignant neoplasm of head of [...] from your doctor or pharmacy? Never 04/12/2024 [facility] Utilities Answer Date Recorded In the past [...] any time in the past 12 m [facility], were you homeless or [...] as of this encounter Progress Notes * Leilani Lock RN - 04/22/2024 9:00 AM EDT INFUSION THERAPY ADMINISTRATION NOTES DIAGNOSIS: Pancreatic CA CYCLE #:C1D1 - [place]/Abraxane REASON FOR VISIT: Initiation of chemotherapy SUBJECTIVE Efrain offers no complaints. He is accompanied by his sister, Katherine, today. OBJECTIVE Efrain was seen by Dr. Kelly prior to infusion and found ready to treat. LAB DATA: Drawn on 04/20/24 at [facility] in [place]. WNL for treatment. IV ACCESS: Mediport accessed here in clinic. Flushes readily with brisk blood return. Pre administration: Chemotherapy orders independently verified for drug name, route, and dosage per patient's height, weight and BSA by Leilani Lock, [facility]. REACTIONS (DESCRIPTION, TIME, INTERVENTION AND EFFECTIVENESS) none ASSESSMENT Efrain was awake, alert and tolerated treatment well. Port flushed with 20cc NS then de-accessed after completion of treatment. Pt. chemo teaching instructions included: During clinic hours (8am-5pm Thursday-Thursday): pt. can call [phone] with questions or concerns. After clinic hours (5pm-8am Thursday-Thursday and weekends) pt can call [phone] and ask for the bale coverer/oncologist cone former. Dylan Michele verbalized understanding of potential chemotherapy side effects and home care including but not limited to- handwashing to prevent infection, signs and symptoms of low blood counts (fever, fatigue, bleeding), to call with a fever of 100.4 or greater, any significant constipation/diarrhea, importance of nutrition and fluid intake (drinking at least 32-64 ounces of non-caffeinated beverages/day), mouth care. Dylan Michele verbalized understanding of how to take prescription medications given for home use after chemotherapy. PLAN Return to clinic per routine. documented in this encounter Plan of Treatment Upcoming Encounters Date Type Department Care Team (Late st Contact Info) Description 05/20/2024 8:30 AM EDT Office Visit Hematology/Oncology at [address] [phone] Ministerio Kelly MD [facility] [place] [address] [address] HEMATOLOGY AND [place], [place] [phone] 05/20/2024 9:00 AM EDT Infusion Hematology Oncology at [address] [phone] 05/30/2024 1:00 PM EDT Tech [place] [phone] Dena Graves 05/30/2024 4:00 PM EDT Office [place] [phone] Derek Evans MD [facility] [place] [address] 06/03/2024 8:30 AM EDT Office Visit Hematology/Oncology at [address] [phone] Ministerio Kelly MD [facility] [place] [address] [address] HEMATOLOGY AND [place], [place] [phone] 06/03/2024 9:00 AM EDT Infusion Hematology Oncology at [address] [phone] documented as of this encounter Visit Diagnoses Diagnosis Malignant neoplasm of head of pancreas documented in this encounter Administered Medications Inactive Administered Medications - up to 3 most recent administrations Medication Order MAR Action Action Date Dose Rate Site GEMcitabine (Gemzar) 2,400 mg in sodium chloride 0.9% 313.12 mL infusion 2,400 mg (rounded from 2,470 mg = 1,000 mg/m2/dose ? 2.47 m2 Treatment Plan BSA from Recorded weight), Intravenous, ONCE, 1 dose, On Thu04/22/24 at 1030, Administer over 30 Minutes, Warning Vesicant/Irritant Medication New Bag 04/22/2024 11:12 AM EDT 2,400 mg 626.2 mL/hr ondansetron (Zofran) tablet 8 mg 8 mg, Oral, ONCE, 1 dose, On Thu04/22/24 at 0930, Administer prior to chemotherapy, Routine Given 04/22/2024 9:47 AM EDT 8 mg PACLitaxeL-protein bound (Abraxane) injection 232 mg 232 mg (rounded from 231.5625 mg = 93.75 mg/m2/dose ? 2.47 m2 Treatment Plan BSA from Recorded weight), Intravenous, ONCE, 1 dose, On Thu04/22/24 at 1030, Administer over 30 Minutes New Bag 04/22/2024 10:21 AM EDT 232 mg 92.8 mL/hr sodium chloride 0.9 % (flush) (BD PosiFlush Normal Saline 0.9) flush 5-20 mL 5-20 mL, Intravenous, EVERY 1 MIN PRN, Starting on Thu04/22/24 at 0913, Until Thu04/22/24 at 1433, Line Care, Flush pertains to all indwelling lines. Flush per protocol found in the job aid using the link provided on this medication record. Refer to Intravenous (IV) Job Aid: Adult Flushing & Catheter Care (8978) job aid for additional information regarding guidelines and administration., Routine Given 04/22/2024 11:58 AM EDT 20 mLs documented in this encounter Care Teams Director Operating Relationship Specialty Start Date End Date Cedric Rosenbaum DO [address] [place] [phone] PCP - General Family Medicine 03/29/24 documented as of this encounter
--- OUTSIDE RECORDS SUMMARY | 2024-05-14 12:56 | XMS_ITS | Encounter Summary ---
Author Organization [facility] [place] [address] Care Team Providers Care Blocker Metal Base Name Role Phone Cedric Rosenbaum DO Primary Care Provider [phone] Encounter Details Date Type Department Care Team (Late st Contact Info) Description 04/12/2024 Orders Only [place]ematology [place] [phone] [facility] [address] Malignant neoplasm of head of pancreas Social [...] from your doctor or pharmacy? Never 04/12/2024 [facility] Utilities Answer Date Recorded In [...] any time in the past 12 m [facility], were you homeless or living in a halfway (including now)? No 04/12/2024 [facility] IPV Inpatient [...] 8:30 AM EDT Office Visit Hematology/Oncology at [address] [phone] Ministerio Kelly MD [facility] [place] [address] Katherine Guadarrama APRN [address] [place] [address] [place] [phone] 05/20/2024 9:00 AM EDT Infusion Hematology Oncology at [address] [phone] 05/30/2024 1:00 PM EDT Tech [place] [address] Dena Graves 05/30/2024 4:00 PM EDT Office [place] [phone] Derek Evans MD [facility] [place] [address] 06/03/2024 8:30 AM EDT Office Visit Hematology/Oncology at [address] [phone] Ministerio Kelly MD [facility] [place] [address] Katherine Guadarrama INSURANCE CLAIMS EXAMINER [address] [place] [address] DR HEMATOLOGY AND ONGOLOCY [place], [place] [address] 06/03/2024 9:00 AM EDT Infusion Hematology Oncology at [address] [phone] documented as of this encounter Results * Research Venipuncture (04/12/2024 12:44 PM EDT) Research Venipuncture Drawn [facility] Blood 04/12/2024 12:4 4 PM EDT 04/12/2024 1:08 PM EDT Narrative Resulting Agency Comment Spec In Lab Ministerio Kelly MD CHEMISTRY ORDERABLES [facility] [place] [address] documented in this encounter Visit Diagnoses Diagnosis Malignant neoplasm of head of pancreas documented in this encounter Care Teams Blocker Metal Base Relationship Specialty Start Date End Date Cedric Rosenbaum DO [address] [place] [phone] PCP - General Family Medicine 03/29/24 documented as of this encounter
--- OUTSIDE RECORDS SUMMARY | 2024-05-14 12:56 | XMS_ITS | Encounter Summary ---
[place] [address] Care Team Providers Care Router Operator Pin Name Role Phone Cedric Rosenbaum DO Primary Care Provider [phone] Encounter Details Date Type Department Care Team (Latest Contact Info) Description 04/29/2024 10:00 AM EDT Clinical Support Hematology/Oncology at [address] [phone] Blanche Peng, RD [facility] [place] [address] Malignant neoplasm of head of pancreas Social [...] from your doctor or pharmacy? Never 04/12/2024 [facility] Utilities Answer Date Recorded In the past 12 months has e [employer], gas, oil, or water [employer] threatened to shut off services in your [...] any time in the past 12 m [facility], were you homeless or living in a detention (including now)? No 04/12/2024 IPV Inpatient Questions [...] as of this encounter Progress Notes * Blanche Peng, RD - 04/29/2024 10:00 AM EDT Nutrition Note Spoke with Dylan in infusion today. Patient received IV hydration and potassium only today; C1D8 held due to rash. He started first cycle of Gemcitabine plus abraxane last week on 04/22/24 for diagnosis of stage III pancreatic cancer, locally advanced unresectable. Patient had duodenal stent placed on 05/06/24. Patient went to ED on 04/26 with increased abdominal distension since Tuesday 04/24. There was concernfor possible duodenal stent malfunction or displacement. CT abdomen and pelvis showed patent stent without evidence of bowel obstruction, no significant change in pancreatic head mass. Patient lost 10# in past week 04/22-04/29. He attributes this to bloating and early satiety. PO intake of fluids and solids is more limited compared to last week. He drank 8 oz of Ensure Clear this morning and feels too full to take in anything else several hours later. He had a couple of days without any solid food intake in the past week. Discussed significant early satiety and bloating with Katherine Guadarrama NP today. Reglan 10 mg fourtimes daily was ordered. 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 Wt Readings from Last 10 Encounters: 04/29/24 117.8 kg (259 lb 12.8 oz) 04/22/24 122.3 kg (269 lb 9.6 oz) 04/12/24 126.3 kg (278 lb 7.1 oz) 04/06/24 127.6 kg (281 lb 4.9 oz) BMI 36.25 390# at highest 10# loss in past week since start of treatment 04/22-04/29 (3.7% body weight) - severe 21# loss in three weeks 04/06-04/29 (7.7% body weight) - severe *noted to have had some edema/fluid loss 90# weight loss in past 4 months to April 2024 (26% body weight) - severe Diet: Impacted by bloating/early satiety and edentulous. Last week (04/22), was eating three meals/day. Most lunch and dinner meals are 2- 4 chicken tenders with vegetables. He is drinking Ensure Clear (up to 3 per day). He doesn't care for milk-based Ensure. Previously drank 1/5 schnapp's daily, but quit recently. Labs on 04/26: BG 107, BUN 10, Creat 0.54, Na 135, K 3.6, H/H 11.2/32.9, Alb 3.1L, AST 32, ALT 24, Alk Phos 141H (up from 96), Tbili 1.4H (up from 0.5 on 04/12), lipase 78H Medications: Reglan (new), colchicine, Ensure Clear (3 bottles/day), prn Maalox, potassium chloride, Zofran-ODT, protonix, mylicon drops, Zenpep 25 (two per meal), carvedilol Nutrition Problem: Involuntary weight loss and protein/calorie malnutrition related to pancreatic cancer with early satiety as evidenced by 90# weight loss in past 4 months to April 2024 (26% body weight) - severe Ongoin# loss in past week since start of treatment 04/22-04/29 (3.7% body weight) - severe Recommendations: Provided handout on eating after duodenal stent from pancreatic cancer action website to patient. Recommendations include: make sure you sit as upright as possible when eating; gravity will help foodgo down, eat slowly and chew food well; eat smaller meals 6 times daily with drinks in between meals; avoid drinking too much with meal; avoid lying down for 30 min-1 hour after eating. Encouraged limiting to soft moist foods which pass more easily with duodenal stent. Provided list of these foods to consider. Ensure Clear: insurance is paying for three bottles daily. ZenPep 25: taking 3 per meal but PO intake decreased in past week Reglan added by Katherine Guadarrama, SEBLE otday. This tends to work best if taken 30 mins before your meal TID. Gave 2 [employer] grocery cards Gave 1 [employer] gas card Will call on 05/04. I will be out of clinic when he returns on 05/06. documented in this encounter Plan of Treatment Upcoming Encounters Date Type Department Care Team (Late st Contact Info) Description 05/20/2024 8:30 AM EDT Office Visit Hematology/Oncology at [address] [phone] Ministerio Kelly MD [facility] [place] [address] Katherine Guadarrama APRN [address] [place] [address] [place], [place] [phone] 05/20/2024 9:00 AM EDT Infusion Hematology Oncology at [address] [phone] 05/30/2024 1:00 PM EDT Tech Visit [place] [phone] Dena Graves 05/30/2024 4:00 PM EDT Office [place] [phone] Derek Evans MD [facility] [place] [address] 06/03/2024 8:30 AM EDT Office Visit Hematology/Oncology at [address] [phone] Ministerio Kelly MD [facility] [place] [address] Katherine Guadarrama APRN [address] [place] [address] DR HEMATOLOGY AND ONGOLOCY [place], [place] [phone] 06/03/2024 9:00 AM EDT Infusion Hematology Oncology at [address] [phone] documented as of this encounter Visit Diagnoses Diagnosis Malignant neoplasm of head of pancreas documented in this encounter Care Teams Router Operator Pin Relationship Specialty Start Date End Date Cedric Rosenbaum DO [address] [place] [phone] PCP - General Family Medicine 03/29/24 documented as of this encounter
--- OUTSIDE RECORDS SUMMARY | 2024-05-14 12:56 | XMS_ITS | Encounter Summary ---
[place] [address] Care Team Providers Care Teacher Cclc Name Role Phone Cedric Rosenbaum DO Primary Care Provider [phone] Reason for Visit * Reason Onset Date Comments Follow-up 04/27/2024 S/p ED visit Encounter Details Date Type Department Care Team (Late st Contact Info) Description 04/27/2024 Telephone Hematology/Oncology at [address] [phone] Iván De Luna RN Follow-up (S/p ED visit ) Social History Tobacco Use Types Packs/Day Years [...] from your doctor or pharmacy? Never 04/12/2024 [facility] Utilities Answer Date Recorded In the past [...] any time in the past 12 m [facility], were you homeless or living in a penitentiary (including now)? No 04/12/2024 IPV Inpatient Questions [...] Encounter - Iván De Luna RN - 04/27/2024 2:22 PM EDT Called and spoke with Dylan Michele. He has been feeling okay today. He has not ate anything yet because he was napping, reporting fatigue today after his day in the hospital yesterday. He was transferred from [facility] ED to ED. The CT scan showed no abdominal blockage. He has been able to toleratePO intake, drinking juice. He plans to try to eat something soon. He still reports itchy rash and wi ll try cortisone cream as the Benadryl doesn't seem to be helping. Will update provider and he is advised to call back with any concerns. He was in agreement and thankful for the follow up call. Also called [facility] to let them know labs needed prior to C1D8 scheduled 04/29/24. ----- Message from Iván Dee RN sent at 04/26/2024 10:39 AM EDT ----- Regarding: call pt Pt went to [facility] ED 04/26, please call and check on status. Also please call Henny at [facility] to update as they had orders for labs. A-L documented in this encounter Plan of Treatment Upcoming Encounters Date Type Department Care Team (Late st Contact Info) Description 05/20/2024 8:30 AM EDT Office Visit Hematology/Oncology at [address] [phone] Ministerio Kelly MD [facility] [place] [address] Katherine Guadarrama APRN [address] [place] [address] DR HEMATOLOGY [place] [address] 05/20/2024 9:00 AM EDT Infusion Hematology Oncology at [address] [phone] 05/30/2024 1:00 PM EDT Tech [place] [address] Dena Graves 05/30/2024 4:00 PM EDT Office Visit [place] [phone] Derek Evans MD [facility] [place] [address] 06/03/2024 8:30 AM EDT Office Visit Hematology/Oncology at [address] [phone] Ministerio Kelly MD [facility] [place] [address] Katherine Guadarrama APRN [address] [place] [address] DR HEMATOLOGY [place] [address] 06/03/2024 9:00 AM EDT Infusion Hematology Oncology at [address] [phone] documented as of this encounter Visit Diagnoses Not on filedocumented in this encounter Care Teams Teacher Cclc Relationship Specialty Start Date End Date Cedric Rosenbaum DO [address] [place] [phone] PCP - General Family Medicine 03/29/24 documented as of this encounter
--- OUTSIDE RECORDS SUMMARY | 2024-05-14 12:56 | XMS_ITS | Encounter Summary ---
Author Organization [facility] [place] [address] Care Team Providers Care Gas Operation Manager Name Role Phone Cedric Rosenbaum DO Primary Care Provider [phone] Encounter Details Date Type Department Care Team (Latest Contact Info) Description 04/25/2024 Travel Social History Tobacco Use Types Packs/Day [...] doctor or pharmacy? Never 04/12/2024 [facility] Utilities Answer Date Recorded In the past 12 months has e [employer] [employer], gas, oil, or water [employer] threatened to shut off services in your [...] were you homeless or living in a care home (including now)? No 04/12/2024 DH IPV [...] 8:30 AM EDT Office Visit Hematology/Oncology at [address] [phone] Ministerio Kelly MD [facility] [place] [address] Katherine Guadarrama APRN [address] [place] [address] H[place] [address] 05/20/2024 9:00 AM EDT Infusion Hematology Oncology at [address] [phone] 05/30/2024 1:00 PM EDT Tech [place] [address] Dena Graves 05/30/2024 4:00 PM EDT Office [place] [address] Derek Evans MD [facility] [place] [place] [address] 06/03/2024 8:30 AM EDT Office Visit Hematology/Oncology at [address] [phone] Ministerio Kelly MD [facility] [place] [address] Katherine Guadarrama GENERAL MANAGER FOOD [address] [place] [address] DR HEMATOLOGY AND ONGOLOCY [place], [place] [phone] 06/03/2024 9:00 AM EDT Infusion Hematology Oncology at [address] [phone] documented as of this encounter Visit Diagnoses Not on filedocumented in this encounter Care Teams Gas Operation Manager Relationship Specialty Start Date End Date Cedric Rosenbaum DO [address] [place] [phone] PCP - General Family Medicine 03/29/24 documented as of this encounter
--- OUTSIDE RECORDS SUMMARY | 2024-05-14 12:56 | XMS_ITS | Encounter Summary ---
Author Organization [facility] [place] [address] Care Team Providers Care Electrical Systems Drafter Name Role Phone Cedric Rosenbaum DO Primary Care Provider [phone] Reason for Visit * Reason Onset Date Comments Results 04/26/2024 Encounter Details Date Type Department Care Team (Late st Contact Info) Description 04/26/2024 Telephone Hematology [place] [address] Alan Covarrubias V, [facility] Hematology/[place] [address] Results Social History Tobacco Use Types Packs/Day Years [...] from your doctor or pharmacy? Never 04/12/2024 [facility] Utilities Answer Date Recorded In [...] time in the past [address] [facility], were you homeless or living in a [facility] (including now)? No 04/12/2024 IPV Inpatient Questions [...] encounter Miscellaneous Notes * Telephone Encounter - Alan Covarrubias LG - 04/26/2024 4:19 PM EDT This test result was discussed with the patient by phone. A copy of the test results have been scanned in the medical record and sent to Dylan. A summary of the results is provided below. Please beadvised that [place] law requires that all health care workers respect the confidentiality ofthis information and not pass it along to other health care providers, insurance companies, or individuals without the written permission of the patient. The [facility] welcomes any questions about these matters. Our phone number is: [phone]. On 04/12/2024 Dylan was seen for genetic counseling and subsequently underwent genetic testing for a hereditary predisposition to cancers in eight major organ systems including breast, gynecologic,gastrointestinal, endocrine, genitourinary, skin, brain/nervous system, sarcoma and hematologic. Following are the results of this test. Result: [facility] CancerNext-Expanded +PicPrizes Panel showed no pathogenic mutations were detected. This means that Dylan does not carry a mutation in the genes detectable by this test. The following 71 genes were analyzed: AIP, ALK, APC, JENNY, BAP1, BARD1, BMPR1A, BRCA1, BRCA2, BRIP1, CDC73, CDH1, CDK4, CDKN1B, CDKN2A, CHEK2, DICER1, FH, FLCN, KIF1B, LZTR1, MAX, MEN1, MET, MLH1, MSH2, MSH6, MUTYH, NF1,NF2, NTHL1, PALB2, PHOX2B, PMS2, POT1, BFZGG1N, PTCH1, PTEN, RAD51C, RAD51D, RB1, RET, SDHA, SDHAF2, SDHB, SDHC, SDHD, SMAD4, SMARCA4, SMARCB1, SMARCE1, STK11, SUFU, OUNF124, TP53, TSC1, TSC2 and VHL(sequencing and deletion/duplication); AXIN2, CTNNA1, EGFR, EGLN1, HOXB13, KIT, MITF, MSH3, PDGFRA,POLD1 and POLE (sequencing only); EPCAM and GREM1 (deletion/duplication only) A variant of uncertain significance (VUS) was detected in the POLD1 gene, specifically c.1157G>A(p.R386H). Interpretation: This test did not identify an underlying genetic cause for the personal history of pancreatic cancer. Possible explanations for this test result include: Dylan's cancer may be due to non genetic, environmental causes. There could be mutations in other cancer genes not included in this test, or in genes yet to be discovered. There is a very small chance that a pathogenic variant/mutation could be missed due to limitations in the testing. Based on these results, Dylan's children do not currently need genetic testing for hereditary cancer risk due to their paternal family history. If their mother's family history is of concern, we would recommend further evaluation of that side of the family by a genetic counselor. Additional germline genetic testing for Dylan is not recommended at this time. Variant of Uncertain Significance (VUS) It is unclear at this time whether the POLD1 VUS identified in Dylan is a cancer-associated mutation or a benign change in the gene with no increased cancer risks. [facility] is continually collecting and analyzing their data, in an effort to reclassify these variants as either cancer-causingmutations or benign changes. It is important to remember that a vast majority of variants of uncertain significance are normal, benign changes in the gene. We will be contacted by the laboratory, in the future, if a reclassification is made and we would then notify Dylan. It is important that Dylan's phone number and mailing address stay updated in the [facility] system, in order for us to reach him in the future, should an amended reportbe issued. Family members should NOT be tested for the variant of uncertain significance identifiedin Dylan in order to find out their own cancer risks. documented in this encounter Plan of Treatment Upcoming Encounters Date Type Department Care Team (Late st Contact Info) Description 05/20/2024 8:30 AM EDT Office Visit Hematology/Oncology at [address] [phone] Ministerio Kelly MD [facility] [place] [address] Katherine Guadarrama APRN [address] [place] [address] DR HEMATOLOGY AND ONGOLOCY [place], [place] [phone] 05/20/2024 9:00 AM EDT Infusion Hematology Oncology at [address] [phone] 05/30/2024 1:00 PM EDT Tech [place] [address] Dena Graves 05/30/2024 4:00 PM EDT Office Visit [place] [address] Derek vEans MD [facility] [place] [address] 06/03/2024 8:30 AM EDT Office Visit Hematology/Oncology at [address] [phone] Ministerio Kelly MD [facility] [place] [address] Katherine Guadarrama APRN [address] [place] [address] DR HEMATOLOGY AND ONGOLOCY [place], [place] [phone] 06/03/2024 9:00 AM EDT Infusion Hematology Oncology at [address] [phone] documented as of this encounter Visit Diagnoses Not on filedocumented in this encounter Care Teams Electrical Systems Drafter Relationship Specialty Start Date End Date Cedric Rosenbaum DO [address] [place] [phone] PCP - General Family Medicine 03/29/24 documented as of this encounter
--- OUTSIDE RECORDS SUMMARY | 2024-05-14 12:56 | XMS_ITS | Encounter Summary ---
Author Organization [facility] [place] [address] Care Team Providers Care Licensed Reactor Operator Name Role Phone Cedric Rosenbaum DO Primary Care Provider [phone] Reason for Visit * Reason Onset Date Comments Other 04/28/2024 Encounter Details Date Type Department Care Team (Late st Contact Info) Description 04/28/2024 Telephone Hematology/Oncology at [address] [phone] Iván De Luna RN Other Social History Tobacco Use Types Packs/Day Years [...] from your doctor or pharmacy? Never 04/12/2024 [facility] Utilities Answer Date Recorded In [...] a senior care (including now)? No 04/12/2024 DH IPV Inpatient [...] Encounter - Iván De Luna RN - 04/28/2024 1:16 PM EDT [facility] called to report no blood return from port site. Site is flushing fine, pt reports he tastes saline. Tried longer needle and position changes with no effect. They did Heparin lock port and draw labs peripherally. Will update team to assess tomorrow at [facility]. documented in this encounter Plan of Treatment Upcoming Encounters Date Type Department Care Team (Late st Contact Info) Description 05/20/2024 8:30 AM EDT Office Visit Hematology/Oncology at [address] [phone] Ministerio Kelly MD [facility] [place] [address] [address] HEMATOLOGY [place], [place] [phone] 05/20/2024 9:00 AM EDT Infusion Hematology Oncology at [address] [phone] 05/30/2024 1:00 PM EDT Tech Visit [place] [phone] Dena Graves 05/30/2024 4:00 PM EDT Office Visit [place] [address] Derek Evans MD [facility] [place] [address] 06/03/2024 8:30 AM EDT Office Visit Hematology/Oncology at [address] [phone] Ministerio Kelly MD [facility] [place] [address] Katherine Guadarrama[address] HEMATOLOGY AND [place], [place] [phone] 06/03/2024 9:00 AM EDT Infusion Hematology Oncology at [address] [phone] documented as of this encounter Visit Diagnoses Not on filedocumented in this encounter Care Teams Licensed Reactor Operator Relationship Specialty Start Date End Date Cedric Rosenbaum DO [address] [place] [address] PCP - General Family Medicine 03/29/24 documented as of this encounter
--- OUTSIDE RECORDS SUMMARY | 2024-05-14 12:56 | XMS_ITS | Encounter Summary ---
Author Organization [facility] [place] [address] Care Team Providers Care Embedded Software Programmer Name Role Phone Cedric Rosenbaum DO Primary Care Provider [phone] Encounter Details Date Type Department Care Team (Latest Contact Info) Description 04/15/2024 Travel Social History Tobacco Use Types Packs/Day [...] from your doctor or pharmacy? Never 04/12/2024 [facility] Utilities Answer Date Recorded In the past 12 months has e [employer], gas, oil, or water [employer] threatened to shut off services in your [...] were you homeless or living in a long term (including now)? No 04/12/2024 DH IPV Inpatient [...] 8:30 AM EDT Office Visit Hematology/Oncology at [address] [phone] Ministerio Kelly MD [facility] [place] [address] Katherine Guadarrama APRN [address] [place] [address] H[place]ATOLOGY [place] [address] 05/20/2024 9:00 AM EDT Infusion Hematology Oncology at [address] [phone] 05/30/2024 1:00 PM EDT Tech [place] [address] Dena Graves 05/30/2024 4:00 PM EDT Office [place] [address] Derek Evans MD [facility] DR [place] [address] 06/03/2024 8:30 AM EDT Office Visit Hematology/Oncology at [address] [phone] Ministerio Kelly MD [facility] [place] [address] Katherine Guadarrama PORCELAIN ENAMEL [employer]ORER [address] [place] [address] DR HEMATOLOGY AND ONGOLOCY [place], [place] [phone] 06/03/2024 9:00 AM EDT Infusion Hematology Oncology at [address] [phone] documented as of this encounter Visit Diagnoses Not on filedocumented in this encounter Care Teams Embedded Software Programmer Relationship Specialty Start Date End Date Cedric Rosenbaum DO [address] [place] [phone] PCP - General Family Medicine 03/29/24 documented as of this encounter
--- OUTSIDE RECORDS SUMMARY | 2024-05-14 12:56 | XMS_ITS | Encounter Summary ---
[place] [address] Care Team Providers Care Plexiglas Former Name Role Phone Cedric Rosenbaum DO Primary Care Provider [phone] Reason for Visit * Reason Onset Date Comments Other 04/26/2024 Community/financ ial resources Encounter Details Date Type Department Care Team (Late st Contact Info) Description 04/26/2024 Telephone Hematology/Oncology at [address] [phone] Heidi Glynn, LEAD PHP DEVELOPER OFFICE OF CARE MANAGEMENT Other (Community/financial resources) Social History Tobacco Use Types Packs/Day Years [...] doctor or pharmacy? Never 04/12/2024 [facility] Utilities Answer Date Recorded In the past [...] were you homeless or living in a jail (including now)? No 04/12/2024 IPV Inpatient Questions [...] Miscellaneous Notes * Telephone Encounter - Heidi Glynn MSW - 04/26/2024 9:04 AM EDT MIRNA Richardson. Received his rent statement by email this morning. [facility] his request for $350 towards his $550 rent. Inquired if Efrain reached out to the [facility] [employer] and he did. He has an email response from them. He is waiting to hear about the application hissister made to the [facility]. Will notify Efrain outcome of his application to the [facility]. Will continue to follow for support gayle. Financial resources Community Resource documented in this encounter Plan of Treatment Upcoming Encounters Date Type Department Care Team (Late st Contact Info) Description 05/20/2024 8:30 AM EDT Office Visit Hematology/Oncology at [address] [phone] Ministerio Kelly MD [facility] [place] [address] [address] HEMATOLOGY AND [place], [place] [phone] 05/20/2024 9:00 AM EDT Infusion Hematology Oncology at [address] [phone] 05/30/2024 1:00 PM EDT Tech [place] [address] Dena Graves 05/30/2024 4:00 PM EDT Office Visit [place] [address] Derek Evans MD [facility] [place] [place] [address] 06/03/2024 8:30 AM EDT Office Visit Hematology/Oncology at [address] [phone] Ministerio Kelly MD [facility] [place] [address] [address] HEMATOLOGY AND [place], [place] [phone] 06/03/2024 9:00 AM EDT Infusion Hematology Oncology at [address] [phone] documented as of this encounter Visit Diagnoses Not on filedocumented in this encounter Care Teams Plexiglas Former Relationship Specialty Start Date End Date Cedric Rosenbaum DO [address] [place] [phone] PCP - General Family Medicine 03/29/24 documented as of this encounter
--- OUTSIDE RECORDS SUMMARY | 2024-05-14 12:56 | XMS_ITS | Encounter Summary ---
[place] [address] Care Team Providers Care Knitting Machine Fixer Head Name Role Phone Cedric Rosenbaum DO Primary Care Provider [phone] Reason for Visit * Reason Onset Date Comments Establish Care 04/12/2024 Encounter Details Date Type Department Care Team (Late st Contact Info) Description 04/12/2024 Patient Outreach Hematology [place] [phone] Abiodun Zimmerman, RN Establish Care Social History Tobacco Use Types Packs/Day Years [...] from your doctor or pharmacy? Never 04/12/2024 [employer] Utilities Answer Date Recorded In the past 12 months has e [employer], gas, oil, or water [employer] threatened to shut off services in your [...] time in the past [address] [facility], were you homeless or living in [...] as of this encounter Progress Notes * Abiodun Zimmerman RN - 04/12/2024 12:03 PM EDTSummary: Introduction and Initial Asssessment Met Mr. Michele and his sister after his visit with Dr. Kelly to assess for nurse navigation services. Introduced the role of GI Navigator as a gate watchman of timely access to care and resources. Patient was here for management of newly diagnosed metastatic pancreatic cancer. Patient was not in acute distress, and his pain is adequately controlled. He reported of stable appetite. Since the duodenal stent placement on 03/31, he has been able eat more and supplement with Ensures drinks. He takes his pancreatic enzymes with good toleration. Patient encouraged maintain adequate hydration and to eat small frequent meals. Patient lives with two room mates. He has been unable to work. 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 He has Medicaid for insurance. Patient is in the process of applying for Medicare/SSDI. Discussed about applying it online vs going to his local SSA office. Provided a letter to [facility] requesting to be considered for an expedited disability processing and determination based on his diagnosis. Patient has also contacted the VA office to find out if he is eligible for any available assistance. Gave patient navigator contact information, advised to call for assistance coordinating care or with any questions or concerns. Outlined main ancillary services availableto help support patient including social work, jamb cutter, palliative care etc. Patient met with ourdietitian today. Patient informed of [employer] and delivered Ensure order today. Provided also a $25.0 gas card. Completed a disabled parking placard application. documented in this encounter Plan of Treatment Upcoming Encounters Date Type Department Care Team (Late st Contact Info) Description 05/20/2024 8:30 AM EDT Office Visit Hematology/Oncology at [address] [phone] Ministerio Kelly MD [facility] [place] [address] Katherine Guadarrama APRN [address] [place] [address] DR HEMATOLOGY AND ONGOLOCY [place], [place] [address] 05/20/2024 9:00 AM EDT Infusion Hematology Oncology at [address] [phone] 05/30/2024 1:00 PM EDT Tech [place] [address] Dena Graves 05/30/2024 4:00 PM EDT Office Visit [place] [phone] Derek Evans MD [facility] [place] [address] 06/03/2024 8:30 AM EDT Office Visit Hematology/Oncology at [address] [phone] Ministerio Kelly MD [facility] [place] [address] Katherine Guadarrama APRN [address] [place] [address] HEMATOLOGY AND ONGOLOCY [place], [place] [phone] 06/03/2024 9:00 AM EDT Infusion Hematology Oncology at [address] [phone] documented as of this encounter Visit Diagnoses Not on filedocumented in this encounter Care Teams Knitting Machine Fixer Head Relationship Specialty Start Date End Date Cedric Rosenbaum DO [address] [place] [phone] PCP - General Family Medicine 03/29/24 documented as of this encounter
--- OUTSIDE RECORDS SUMMARY | 2024-05-14 12:56 | XMS_ITS | Encounter Summary ---
Author Organization [facility] [place] [address] Care Team Providers Care Calf Skinner Name Role Phone Cedric Rosenbaum DO Primary Care Provider [phone] Reason for Visit * Reason Comments Abdominal Pain From [facility] for ED Encounter Details Date Type Department Care Team (Late st Contact Info) Description 04/26/2024 5:42 PM EDT - 04/27/2024 8:22 AM EDT Emergency [place] [address] Kay Bocanegra MD [facility] [place] [address] Gill Smith MD [facility] [place] [address] Esdras Rodrigues MD [facility] [place] [address] Abdominal distension Discharge Disposition: Home Social History Tobacco Use [...] from your doctor or pharmacy? Never 04/12/2024 [facility] Utilities Answer Date Recorded In [...] any time in the past 12 m [facility], were you homeless or living in [...] Sign Reading Time Taken Comments Blood Pressure 103/88 04/26/2024 5:47 PM EDT Pulse - - Temperature 37.1 ??C (98.8 ??F) 04/26/2024 5:47 PM ED T Respiratory Rate 18 04/26/2024 5:47 PM EDT Oxygen Saturation 93% 04/26/2024 6:00 PM EDT Inhaled Oxygen Concentration - - Weight - - Height - - Body Mass Index - - documented in this encounter Discharge Instructions * Discharge Instructions* Odalys Robin DO - 04/27/2024 1:15 AM EDT You were seen in the emergency department for abdominal distention. You had labs completed. Your liver enzymes including alk phos, total bilirubin, and direct bilirubin were elevated. You had a CT ofyour abdomen and pelvis completed. Your CT results are as follows: 1. Stented and patent third and fourth duodenum. No evidence of bowel obstruction. 2. No significant change in approximately 5.9 cm ill-defined pancreatic head mass with vascular encasement as above. 3. No acute intra-abdominal process. 4. Small fat-containing umbilical hernia with mild stranding in the herniated fat. Correlate clinically with any symptoms referable to the umbilicus or concern for incarceration. You were able to tolerate eating before discharge home. Please call your GI doctor, oncologist and PCP to further discuss your symptoms and schedule your appointments. If you develop worsening or concerning symptoms such as inability to eat, passing out, severe abdominal pain, inability to move your bowels, vomiting, fevers, chest pain, or difficulty breathing please return to the emergency department. Thank you for allowing us to take part in your care today. documented in this encounter Medications at Time [...] mouth 4 times daily. 30 mL 04/06/2024 mcmznk-fzxlsyru-jlsbbud (Zenpep) 25,000-79,000- 105,[address] capsule Take [...] mouth daily. 30 tablet 5 04/13/2024 04/29/2024 cj-em-lnueb-M70-pzlxcte- lutein (Theragran-M Premier 50 Plus) 400-250-375 mcg TabletIndications:Modera te protein-calorie malnutrition Take 1 tablet by mouth daily. 30 tablet 5 04/12/2024 04/29/2024 multivitamin with minerals (Thera M) 9 mg iron-400 mcg Tablet Take 1 tablet by mouth daily. 90 tablet 3 04/07/2024 04/29/2024 documented as of this encounter Progress Notes * Dasia Hood RN - 04/27/2024 2:37 AM EDT Requested to assess MP needle placement. Per pt and bedside RN, unable to flush or draw blood. Accessed at OSH per pt and used successfully for treatment there, but unable to draw blood. Upon assessment, MP needle noted to be in soft tissue and not port. Removed without need for reaccess attempt due to pt having PIV in place. documented in this encounter ED Notes * Shagufta Morris RN - 04/27/2024 5:22 AM EDT Pt declined food/water at this time. Dylan Michele discharged per provider order to home via family/friend. All IV???s removed. Discharge instructions signed and reviewed with patient. All questions or concerns answered at this time. Patient encouraged to call with any further questions or concerns. Copy of After Visit Summary given to patient at time of discharge. All personal belongings returned to patient. * Shagufta Morris RN - 04/27/2024 1:40 AM EDT IV team called for port access/de-access. Medication not given until check complete. * Odalys Robin DO - 04/26/2024 6:25 PM EDT ED Resident Note HPI: Dylan Michele is a 54 y.o. male with medical history of pancreatic cancer status post duodenal stent who presents to the Emergency Department from [place] [facility] for abdominal CT due to concern for duodenal stent malfunction or displacement. Patient reports that he has had increased abdominal distention since Thursday. He had his first chemo treatment on Thursday and has had decreased p.o. intake since this time. He has associated nausea without vomiting. He also developed a pruritic rash on his abdomen, chest, and back. He has been taking Benadryl for this. He denies abdominal pain, chest pain, shortness of breath, fevers, and chills. His oncologist is here at [facility]. Labs completed at outside hospital with WBC 7.22, hemoglobin 12.0, hematocrit 37.2, platelets 209, lactate 0.8, sodium 136, potassium 3.9, BUN 10, creatinine 0.7, total bilirubin 1.3, AST 22, ALT 26,alk phos 138, and lipase 100. ROS as per HPI Vitals: ED Triage Vitals [04/26/24 6407] BP: 103/88 Pulse: n/a Resp: 18 Temp: 37.1 ??C (98.8 ??F) Temp src: Oral SpO2: 98 % O2 Device: RA O2 Flow Rate (L/min): n/a Physical Exam Constitutional: General: He is not in acute distress. Appearance: He is not toxic-appearing. Cardiovascular: Rate and Rhythm: Normal rate and regular rhythm. Pulmonary: Effort: Pulmonary effort is normal. No respiratory distress. Breath sounds: Normal breath sounds. No wheezing. Abdominal: General: There is no distension. Palpations: Abdomen is soft. There is no mass. Tenderness: There is no abdominal tenderness. Comments: No abdominal tenderness on exam. No palpable masses. Skin: General: Skin is warm and dry. Coloration: Skin is not jaundiced. Comments: Patient has a pruritic maculopapular rash on abdomen, chest, and back Neurological: Mental Status: He is alert. Comments: Patient answers questions appropriately. He is able to move all 4 extremities without difficulty. ED Course: I have reviewed labs and imaging, images and available reports, and they are significant for: ED Course as of 04/27/24115Apr 26, 2024 1821 Patient seen and examined at bedside. CT ordered. 1934 Repeat labs here without leukocytosis. Hemoglobin stable at 11.2. CBC otherwise unremarkable. LFTs with elevated alk phos of 141, total bilirubin 1.4, indirect bilirubin 0.9. Albumin low at 3.1.BMP unremarkable. Patient received 1 L of IV fluids at the outside hospital. 2127 CT result: IMPRESSION 1. Stented and patent third and fourth duodenum. No evidence of bowel obstruction. 2. No significant change in approximately 5.9 cm ill-defined pancreatic head mass with vascular encasement as above. 3. No acute intra-abdominal process. 4. Small fat-containing umbilical hernia with mild stranding in the herniated fat. Correlate clinically with any symptoms referable to the umbilicus or concern for incarceration. 2252 No evidence of incarcerated hernia on exam. ThuApr 27, 2024 0101 Benadryl ordered. 0114 Patient was able to tolerate p.o. intake. He will have a ride home in the morning around 6 AM. 0115 Your liver enzymes including alk phos, total bilirubin, and direct bilirubin were elevated. Assessment and Plan: 54 y.o. male with recent diagnosis of pancreatic cancer status post duodenal stent transferred herefrom outside hospital for CT abdomen and pelvis to assess stent patency and progression of pancreatic cancer. Vitals and physical exam reassuring. Repeat labs done here as discussed above. Patient has not had any infectious symptoms. CT showed a patent stent without evidence of bowel obstruction. There is no significant change in pancreatic head mass. There was a small fat-containing umbilical hernia, but no evidence of incarceration on physical exam. Patient also has a pruritic rash that has been responsive to Benadryl at home. This rash is likely secondary to chemotherapy. Gave patient a dose of Benadryl in the emergency department. He is able to tolerate p.o. intake. Patient ultimately discharged home in the morning as he is awaiting his ride. Recommend follow-up with his GI doctor, oncologist, and PCP. The visit findings, diagnosis, and care plan were discussed with the patient. The diagnosis and care plans discussions were outlined in the discharge instructions. The patient expressed understanding of the details of the visit, the return precautions and that he should returnto the ER at any time for worsening symptoms, new symptoms, or other concerns. he agrees with the follow- up plan. Odalys Robin DO Resident 04/27/24 0330 Associated attestation - Kay Bocanegra MD - 05/13/2024 5:58 PM EDT ED ATTENDING ATTESTATION NOTE The patient was seen in conjunction with the resident physician. I have independently performed thekey portions of the history and physical exam. I have reviewed the diagnostic studies including labs, imaging studies and EKGs. I have discussed the details of the case with the resident and agree with the assessment and plan as described in the resident note unless noted below or in my separate note. Brief Summary: 54 y.o. male with recent diagnosis of pancreatic cancer s/p duodenal stent placement transferred from OSH for CT imaging to evaluate for stent placement. CT imaging notable for patent stent without evidence of bowel obstruction. Patient able to tolerate oral intake. Discharged, advised GI follow up, given return precautions. * Eze Mustafa RN - 04/26/2024 5:05 PM EDT Sending Facility: [facility] Reason for Transfer: No CT at OSH Report: Followed by onc for pancreatic ca, abd bloated, poor rectal output, last BM yesterday, concern for constipation. Needs CT, CT down at OSH. Port is accessed by infusion team, will not pull back Vital Signs: Pulse: 70's B/P: 105/61 (normal) Resp: SPO2: 97 O2 LPM: ra GCS: BGL: Temp: STEMI ALERT: Has the EKG been transmitted? Yes/No STROKE ALERT: Last Known Well Time: [place] Stroke Scale: + / - FAST-ED Score: TRAUMA ALERT: T9 Alert Consult Lowest Documented BP Transporting Service: [place] rescue Time of Departure: ETA: * Christianne Oliva MD - 04/26/2024 3:22 PM EDT EM attending brief transfer acceptance note: Dylan Norwood is a 54 y.o. who I accepted in transfer from [facility] The patient will be evaluated in the Emergency Department for abdominal pain The EM team will contact the Oncology team as needed The OSH does not agree to take the patient back in transfer after our evaluation and treatment. Transfer and stabilization prior to transfer were discussed SUMMARY: coming from [facility] for abd pain, pancreatic CA. Last Chemo 04/22. 2 days distension and pain.No vomiting, minimal PO. No CT available. Has duod stent. Small BM yesterday. Needs CT and likely has stent obstruction. Christianne Oliva MD 04/26/24 1526 documented in this encounter Plan of Treatment Upcoming Encounters Date Type Department Care Team (Late st Contact Info) Description 05/20/2024 8:30 AM EDT Office Visit Hematology/Oncology at [address] [phone] Ministerio Kelly MD [facility] [place] [address] Katherine Guadarrama APRN [address] [place] [address] [place] [address] 05/20/2024 9:00 AM EDT Infusion Hematology Oncology at [address] [phone] 05/30/2024 1:00 PM EDT Tech Visit [place] [address] Dena Graves 05/30/2024 4:00 PM EDT Office [place] [phone] Derek Evans MD [facility] [place] [address] 06/03/2024 8:30 AM EDT Office Visit Hematology/Oncology at [address] [phone] Ministerio Kelly MD [facility] [place] [address] Katherine Guadarrama [employer] [address] [place] [address] HEMATOLOGY AND [place], [place] [phone] 06/03/2024 9:00 AM EDT Infusion Hematology Oncology at [address] [phone] documented as of this encounter Procedures Procedure Name Priority Date/Time Associated Diagnosis Comments CT ABDOMEN AND PELVIS W CONTRAST STAT 04/26/2024 8:01 PM EDT HEMOGRAM STAT 04/26/2024 6:38 PM EDT DIFFERENTIAL, AUTOMATED STAT 04/26/2024 6:38 PM EDT GOLD TUBE HOLD STAT 04/26/2024 6:38 PM EDT BLUE TUBE HOLD STAT 04/26/2024 6:38 PM EDT HC CBC,PLT & AUTO DIFF STAT 04/26/2024 6:38 PM EDT HC LIPASE STAT 04/26/2024 6:38 PM EDT HEPATIC FUNCTION PANEL STAT 04/26/2024 6:38 PM EDT BASIC METABOLIC PANEL (NON-FASTING) STAT 04/26/2024 6:38 PM EDT documented in this encounter Results * CT Abdomen & Pelvis w Contrast (04/26/2024 8:01 PM EDT) [employer] WORKSTATION ID [id number] RAD Anatomical Region Laterality Modality Abdomen, Pelvis Computed [...] who have questions please contact the health life care planner that requested your imaging first. ? Narrative [...] patients who have questions please contactthe health life care planner that requested your imaging first. Kay Bocanegra MD IMG CT ORDERABLES * Gold Tube HOLD (04/26/2024 6:38 PM EDT) Gold Hold Sample in lab. [facility] Blood Venous Draw / Unknown 04/26/2024 6:38 PM EDT 04/26/2024 6:52 PM EDT Odalys Robin DO CHEMISTRY ORDERABLES [facility] [place] [address] * Blue Tube HOLD (04/26/2024 6:38 PM EDT) Blue Hold Sample in lab. [facility] Blood Venous Draw / Unknown 04/26/2024 6:38 PM EDT 04/26/2024 6:52 PM EDT Odalys L Lobito DO HEMATOLOGY ORDERABLE S Performing Organization Address City/[facility]/ZIP Co de Phone Number [facility] [place] [address] * (ABNORMAL) Differential, Automated (04/26/2024 6:38 PM EDT) Neutrophils % 88.9 % [facility] Neutr Abs (ANC) 4.90 1.70 - 6.10 x10(3)/[facility] Lymphocytes % 7.8 % [facility] Lymphocytes Abs 0.4(L) 0.9 - 3.2 x10(3)/[facility] Monocytes % 0.9 % [facility] Monocyte Abs 0.0(L) 0.3 - 0.9 x10(3)/[facility] Eosinophils % 1.1 % [facility] Eosinophils Abs 0.1 0.0 - 0.4 x10(3)/[facility] Basophils % 0.2 % [facility] Basophils Abs 0.0 0.0 - 0.1 x10(3)/[facility] Immature Gran % 1.10 % [facility] Comment: Immature granulocytes(IG's)percentage and absolute count will include metamyelocytes, myelocytes, and promyelocytes. Blood smears from CBCs yielding IG's will be scanned manually for concordance. If this scan disagrees with the automated IG or if promyelocytes are noted, a manual differential will be performed. [place] Gran Abs 0.06(H) 0.00 - 0.04 x10(3)/[facility] Blood 04/26/2024 6:38 PM EDT 04/26/2024 6:51 PM EDT Narrative Resulting Agency Comment Spec In Lab Odalys Robin DO HEMATOLOGY ORDERABLE S Performing Organization Address City/[facility]/ZIP Co de Phone Number [facility] [place] [address] * (ABNORMAL) Hemogram (04/26/2024 6:38 PM EDT) WBC 5.5 4.0 - 9.5 x10(3)/[facility] RBC 3.87(L) 4.58 - 5.54 x10(6)/[facility] Hemoglobin 11.2(L) 13.7 - 16.5 g/dL [facility] Hematocrit 32.9(L) 40.5 - 48.5 % [facility] MCV 85.0 82.9 - 93.1 [facility] MCH 28.9 27.5 - 32.1 pg [facility] MCHC 34.0 32.0 - 35.7 g/dL [facility] Platelets 180 145 - 357 x10(3)/[facility] RDWSD 39.8 36.0 - 45.0 [facility] RDWCV 12.8 11.4 - 13.8 % [facility] MPV 8.9 7.6 - 12.9 [facility] nRBC % Auto 0.0 % [facility] nRBC Abs Auto 0.000 0.000 - 0.000 x10(3)/[facility] Blood 04/26/2024 6:38 PM EDT 04/26/2024 6:51 PM EDT Narrative Resulting Agency Comment Spec In Lab Odalys Robin DO HEMATOLOGY ORDERABLE S [facility] [place] [address] * (ABNORMAL) Lipase (04/26/2024 6:38 PM EDT) Lipase 78(H) 0 - 60 unit/L [facility] Blood 04/26/2024 6:38 PM EDT 04/26/2024 6:51 PM EDT Narrative Resulting Agency Comment Spec In Lab Kay Bocanegra MD CHEMISTRY ORDERABLES Performing Organization Address [facility]/ZIP Co de Phone Number [facility] [place] [address] * (ABNORMAL) Hepatic Function Panel (04/26/2024 6:38 PM EDT) Total Protein 6.3 6.1 - 8.0 g/dL [facility] Albumin 3.1(L) 3.2 - 5.2 g/dL [facility] AST 32 0 - 39 unit/L [facility] ALT 24 0 - 55 unit/L [facility] Alk Phos 141(H) 40 - 130 unit/L [facility] Total Bilirubin 1.4(H) 0.2 - 1.3 mg/dL [facility] Bili, Direct 0.9(H) 0.0 - 0.3 mg/dL [facility] Blood 04/26/2024 6:38 PM EDT 04/26/2024 6:51 PM EDT Narrative Resulting Agency Comment Spec In Lab Kay Bocanegra MD CHEMISTRY ORDERABLES Performing Organization Address [facility]/[place] Co de Phone Number [facility] [place] [address] * (ABNORMAL) Basic Metabolic Panel (non-fasting) (04/26/2024 6:38 PM EDT) Glucose Lvl 107 65 - 199 mg/dL [facility] Comment:Diabetes: >=200 mg/d L plus symptoms BUN 10 10 - 20 mg/dL [facility] Creatinine 0.54(L) 0.80 - 1.50 mg/dL [facility] Sodium 135 135 - 145 mmol/L [facility] Potassium 3.6 3.5 - 5.0 mmol/L [facility] Comment: Please note: ??Patients with WBC >100,000 may have falsely elevated Potassium levels. ??For accurate Potassium quantification in these patients send serum separator tube (gold top) for subsequent determinations. ??Contact the Clinical Chemistry Laboratory if there are any questions. Chloride 99 98 - 107 mmol/L [facility] CO2 26 22 - 31 mmol/L [facility] Anion Gap 10 5 - 15 mmol/L [facility] Calcium 9.1 8.5 - 10.5 mg/dL [facility] Estimated GFR 120 >=60 mL/min/1. 73 m?? [facility] Comment: This patient's estimated GFR was [...] In Lab Kay Bocanegra MD CHEMISTRY ORDERABLES [facility] [place] [address] documented in this encounter Visit Diagnoses Diagnosis Abdominal distension Flatulence, eructation, and gas pain documented in this encounter Administered Medications Inactive Administered Medications - up to 3 most recent administrations Medication Order MAR Action Action Date Dose Rate Site diphenhydrAMINE (Benadryl) (50 mg/mL) injection 25 mg 25 mg, Intravenous, ONCE, 1 dose, On Thu04/27/24 at 0103, Routine Given 04/27/2024 2:30 AM EDT 25 mg iohexoL (Omnipaque) (350 mg/mL) solution 0-200 mL 0-200 mL, Intravenous, ONCE PRN, 1 dose, Starting on Thu04/26/24 at 2000, Until Thu04/26/24 at 1999, Per Protocol, Warning Vesicant/Irritant Medication , Radiology Contrast, Routine Given 04/26/2024 8:00 PM EDT 120 mLs documented in this encounter Active and Recently Administered Medications Times are shown in EDT. Scheduled Medication Order 04/25/2024 04/26/2024 04/27/2024 diphenhydrAMINE (Benadryl) (50 mg/mL) injection 25 mg (COMPLETED) 25 mg, Intravenous, ONCE, 1 dose, On Thu04/27/24 at 0103, Routine 0230 (Given - Provid er: Shagufta Morris RN) PRN Medication Order 04/25/2024 04/26/2024 04/27/2024 iohexoL (Omnipaque) (350 mg/mL) solution 0-200 mL (COMPLETED) 0-200 mL, Intravenous, ONCE PRN, 1 dose, Starting on Thu04/26/24 at 1999, Until Thu04/26/24 at 1999, Per Protocol, Warning Vesicant/Irritant Medication , Radiology Contrast, Routine 1999 (Given - Provider: Meghna Barger) documented in this encounter Care Teams Calf Skinner Relationship Specialty Start Date End Date Cedric Rosenbaum DO [address] [place] [phone] PCP - General Family Medicine 03/29/24 documented as of this encounter
--- OUTSIDE RECORDS SUMMARY | 2024-05-14 12:56 | XMS_ITS | Encounter Summary ---
Author Organization [facility] Address [facility] [place] [address] Care Team Providers Care Fabric Inspector Name Role Phone Cedric Rosenbaum DO Primary Care Provider [phone] Encounter Details Date Type Department Care Team (Late st Contact Info) Description 04/29/2024 9:00 AM EDT Office Visit Hematology/Oncology at [address] [phone] Ministerio Kelly MD [facility] [place] [address] Katherine Guadarrama APRN [address] [place] [address] DR [place] [address] Malignant neoplasm of head of pancreas; Hypokalemia; Skin rash; Chemotherapy-induced nausea Social History Tobacco Use Types Packs/Day Years [...] from your doctor or pharmacy? Never 04/12/2024 [facility] Utilities Answer Date Recorded In the past 12 months has [employer], oil, or water [employer] threatened to shut off services in your [...] any time in the past 12 m [facility], were you homeless or living in a residential (including now)? No 04/12/2024 DH IPV Inpatient [...] Sign Reading Time Taken Comments Blood Pressure 128/85 04/29/2024 8:47 AM EDT Pulse 73 04/29/2024 8:47 AM EDT Temperature 36.3 ??C (97.3 ??F) 04/29/2024 8:47 AM ED T Respiratory Rate 20 04/29/2024 8:47 AM EDT Oxygen Saturation 100% 04/29/2024 8:47 AM EDT Inhaled Oxygen Concentration - - Weight 117.8 kg (259 lb 12.8 oz) 04/29/2024 8:47 AM EDT Height 180.3 cm (5' 10.98) 04/29/2024 8:47 AM E DT Body Mass Index 36.25 04/29/2024 8:47 AM EDT documented in this encounter Progress Notes * Katherine Guadarrama, RAFFAELE - 04/29/2024 9:00 AM EDT Subjective Patient ID: Dylan Michele [...] with worsening oral intake CT a/p 03/25/24 [place] [place] c/2 12/2023) - IMPRESSION 1. Increased size of the primary pancreatic neoplasm with vascular encasement/abutment, as above, as well as contact with the duodenum. 2. No lymphadenopathy or metastatic disease. Transferred to [facility] B. Upper EUS 03/31/24 - Impression: - [...] 5. 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 The history is summarized above. Dylan is accompanied to clinic today by his sister, who is an RN. He had his first cycle of chemotherapy. He is taking zenpep, 3 with meals and 1 with snacks, thoughhas not noticed an improvement in his bloating. Feels full/bloated after one ensure. Can't really push it further, as it is painful. Using miralax to help his bowels move. Loss of appetite and bloating on Thursday. Rash also started Thursday. Symptoms continued through Thursday, presented to ER, was transferred [place] [facility] due to concern for duodenal stent malfunctioning and CT scan showed stent was working. Poor intake throughout the week Weight loss of 10lbs over one week Rash is significant, hydrocortisone cream OTC has been mildly helpful. Oral benadryl was not helpful. Still pruritic. Does have baseline neuropathy to bilateral feel up to his knees. He notes his feet are almost always tingling. He has a consult with neuro, though they cannot see him until November 2024. 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 Objective Physical Exam Constitutional: General: He is [...] normal. Psychiatric: Mood and Affect: Mood normal. BP 128/85 (Patient Position: Sitting) Pulse 73 Temp 36.3 ??C (97.3 ??F) (Temporal) Resp 20 Ht 180.3 cm (5' 10.98) Wt 117.8 kg (259 lb 12.8 oz) SpO2 100% BMI 36.25 kg/m?? Labs: WBC/ANC - 3.12/2499, Hgb/Hct - 11.6/35.4, Plts - 162,000. BUN/Cr - 7/0.61. Alb - 2.3, alk nxkw349, AST 54, K 3.3, remainder of CMP otherwise unremarkable CA 19-9 04/20/23 166 04/12/24 168 [...] 86lbs weight loss. He was admitted to [facility] on 03/29/24 with nausea, vomiting, poor PO intake, and recently identified pancreatic head mass on imaging. An EUS was performed and a mass was seen in the uncinate process of the pancreas. FNA showed adenocarcinoma with intact staining for MMR proteins. The mass was associated with duodenal obstruction and a duodenal stent was placed. His case was reviewed at [facility] on 04/12/24. Images were reviewed (CT a/p [...] therapy if no evidence of disease progression. On 04/12/24 Dr. Kelly met with Efrain and reviewed the unresectable nature of the disease, and that surgical resection is generally felt to be a necessary component of a potentially curative approach to therapy. Therefore, the goals of therapy are to extend time and maintain quality of life but treatment is not expected to be curative. He met on 04/12/24 with our Genetic Counselor and blood was drawn for genetic testing and that is pending. He began therapy with gem/abraxane on 04/22/24 and the abraxane dose was reduced to start. He developed a full body rash about 48 hours later. This has responded to topical steroids, though is still widespread. He also continued with early satiety/fullness after eating. He presented to a local ER and was transferred for concern that his duodenal stent had failed. CT scan showed the stent was patent. He's lost another 10lbs this week. Given this and the rash, we will hold therapy today. We discussed transitioning to mFOLFIRINOX. He does have pretty significant baseline neuropathy, so we will start the oxaliplatin with a dose reduction Plan: Hold therapy today given rash (likely reaction to gem/abraxane, though unclear which one) and further 10 lb weight loss. Hydrate with NS and replete KCL with 20meq IV RTC next week, will likely transition to mFOLFIRINOX with dose reduced oxaliplatin due to baseline neuropathy Add reglan TID before meals documented in this encounter Plan of Treatment Upcoming Encounters Date Type Department Care Team (Late st Contact Info) Description 05/20/2024 8:30 AM EDT Office Visit Hematology/Oncology at [address] [phone] Ministerio Kelly MD [facility] [place] [address] [address] [place] [address] 05/20/2024 9:00 AM EDT Infusion Hematology Oncology at [address] [phone] 05/30/2024 1:00 PM EDT Tech [place] [address] Dena Graves 05/30/2024 4:00 PM EDT Office Visit [place] [address] Derek Evans MD [facility] [place] [address] 06/03/2024 8:30 AM EDT Office Visit Hematology/Oncology at [address] [phone] Ministerio Kelly MD [facility] [place] [address] [address] HEMATOLOGY AND [place], [place] [phone] 06/03/2024 9:00 AM EDT Infusion Hematology Oncology at [address] [phone] documented as of this encounter Visit Diagnoses Diagnosis Malignant neoplasm of head of pancreas Hypokalemia Hypopotassemia Skin rash Rash and other nonspecific skin eruption Chemotherapy-induced nausea Nausea alone documented in this encounter Care Teams Fabric Inspector Relationship Specialty Start Date End Date Cedric Rosenbaum DO [address] [place] [address] PCP - General Family Medicine 03/29/24 documented as of this encounter
--- OUTSIDE RECORDS SUMMARY | 2024-05-14 12:56 | XMS_ITS | Encounter Summary ---
[place] [address] Care Team Providers Care Pizza Maker Name Role Phone Cedric Rosenbaum DO Primary Care Provider [phone] Reason for Visit * Reason Onset Date Comments Medication Refill 04/12/2024 Encounter Details Date Type Department Care Team (Late st Contact Info) Description 04/12/2024 Refill [place] [phone] Kenya Abebe, RN Moderate protein-calorie malnutrition Social History Tobacco Use Types Packs/Day Years [...] from your doctor or pharmacy? Never 04/12/2024 [employer] Utilities Answer Date Recorded In the past 12 months has e [employer], gas, oil, or water [employer] threatened to shut off services in your [...] any time in the past 12 m [facility], were you homeless or living [...] encounter Miscellaneous Notes * Telephone Encounter - Kenya Abebe RN - 04/12/2024 4:10 PM EDT Message received from clinical attendance secretary: Received a call from the [facility] in [facility], they can not get [id number]-hbavev (Theragran-M Premier 50 Plus) 400-250-375 mcg Tablet thru their supplier documented in this encounter Plan of Treatment Upcoming Encounters Date Type Department Care Team (Late st Contact Info) Description 05/20/2024 8:30 AM EDT Office Visit Hematology/Oncology at [address] [phone] Ministerio Kelly MD [facility] [address] [address] HEMATOLOGY AND [place], [place] [phone] 05/20/2024 9:00 AM EDT Infusion Hematology Oncology at [address] [phone] 05/30/2024 1:00 PM EDT Tech [place] [phone] Dena Graves 05/30/2024 4:00 PM EDT Office [place] [phone] Derek Evans MD [facility] [place] [address] 06/03/2024 8:30 AM EDT Office Visit Hematology/Oncology at [address] [phone] Ministerio Kelly MD [facility] [place] [address] [address] HEMATOLOGY AND [place], [place] [phone] 06/03/2024 9:00 AM EDT Infusion Hematology Oncology at [address] [phone] documented as of this encounter Visit Diagnoses Diagnosis Moderate protein-calorie malnutrition Malnutrition of moderate degree documented in this encounter Care Teams Pizza Maker Relationship Specialty Start Date End Date Cedric Rosenbaum DO [address] [place] [phone] PCP - General Family Medicine 03/29/24 documented as of this encounter
--- OUTSIDE RECORDS SUMMARY | 2024-05-14 12:56 | XMS_ITS | Encounter Summary ---
Author Organization [facility] [place] [address] Care Team Providers Care Hospice Team Lead Name Role Phone Cedric Rosenbaum DO Primary Care Provider [phone] Encounter Details Date Type Department Care Team (Latest Contact Info) Description 04/28/2024 Travel Social History Tobacco Use Types Packs/Day [...] from your doctor or pharmacy? Never 04/12/2024 [facility] Utilities Answer Date Recorded In the past 12 months has e [employer], gas, oil, or water [employer] threatened to shut off services in your [...] were you homeless or living in a [place] health care facility (including now)? No 04/12/2024 DH IPV Inpatient [...] 8:30 AM EDT Office Visit Hematology/Oncology at [address] [phone] Ministerio Kelly MD [facility] [place] [address] Katherine Guadarrama APRN [address] [place] [address] H[place]Y [place] [address] 05/20/2024 9:00 AM EDT Infusion Hematology Oncology at [address] [phone] 05/30/2024 1:00 PM EDT Tech [place] [address] Dena Graves 05/30/2024 4:00 PM EDT Office [place] [address] Derek Evans MD [facility] [place] [address] 06/03/2024 8:30 AM EDT Office Visit Hematology/Oncology at [address] [phone] Ministerio Kelly MD [facility] [place] [address] Katherine Guadarrama ELEVATOR MECHANIC [address] [place] [address] DR HEMATOLOGY AND ONGOLOCY [place], [place] [phone] 06/03/2024 9:00 AM EDT Infusion Hematology Oncology at [address] [phone] documented as of this encounter Visit Diagnoses Not on filedocumented in this encounter Care Teams Hospice Team Lead Relationship Specialty Start Date End Date Cedric Rosenbaum DO [address] [place] [phone] PCP - General Family Medicine 03/29/24 documented as of this encounter
--- OUTSIDE RECORDS SUMMARY | 2024-05-14 12:56 | XMS_ITS | Encounter Summary ---
Author Organization [facility] Address [facility] [place] [address] Care Team Providers Care Vice President Media Relations Name Role Phone Cedric Rosenbaum DO Primary Care Provider [phone] Encounter Details Date Type Department Care Team (Late st Contact Info) Description 04/12/2024 Notes [place] [phone] Alan Silva MD [facility] [place] [address] Social History Tobacco Use Types Packs/Day Years [...] from your doctor or pharmacy? Never 04/12/2024 [facility] Utilities Answer Date Recorded In the [...] in a penitentiary (including now)? No 04/12/2024 DH IPV Inpatient [...] 8:30 AM EDT Office Visit Hematology/Oncology at [address] [phone] Ministerio Kelly MD [facility] [place] [address] Katherine Guadarrama APRN [address] [place] [address] HEMATOLOGY AND ONGOLOCY [place], [place] [address] 05/20/2024 9:00 AM EDT Infusion Hematology Oncology at [address] [phone] 05/30/2024 1:00 PM EDT Tech [place] [address] Dena Graves 05/30/2024 4:00 PM EDT Office [place] [address] Derek Evans MD [facility] [place] [address] 06/03/2024 8:30 AM EDT Office Visit Hematology/Oncology at [address] [phone] Ministerio Kelly MD [facility] [place] [address] Katherine Guadarrama CATH LAB RADIOLOGY TECHNICIAN [address] [place] [address] DR HEMATOLOGY AND ONGOLOCY [place], [place] [phone] 06/03/2024 9:00 AM EDT Infusion Hematology Oncology at [address] [phone] documented as of this encounter Visit Diagnoses Not on filedocumented in this encounter Care Teams Vice President Media Relations Relationship Specialty Start Date End Date Cedric Rosenbaum DO [address] [place] [phone] PCP - General Family Medicine 03/29/24 documented as of this encounter
--- OUTSIDE RECORDS SUMMARY | 2024-05-14 12:56 | XMS_ITS | Encounter Summary ---
Author Organization [facility] Address [facility] [place] [address] Care Team Providers Care Fur Dressing Supervisor Name Role Phone Cedric Rosenbaum DO Primary Care Provider [phone] Reason for Visit * Reason Comments IV Medication Hydration with K * Treatment/Therapy Plan Authorization (Routine) - Closed Specialty Diagnoses / Procedures Referred By Ovidio t Referred To Contact Diagnoses Malignant neoplasm of head of pancreas Procedures TC GEMCITABINE HCL, 200MG, INJECTION (GEMZAR) [id number] (PACLITAXEL PROTEIN BOUND) Ministerio Kelly MD [facility] [place] [address] Stj Hem Onc Infusion [address] [place] [phone] Referral ID Status Reason Start Date Expiration Date Visits Re quested Visits Authorized [id number] Closed 04/12/2024 04/12/2025 100 Encounter Details Date Type Department Care Team (Late st Contact Info) Description 04/29/2024 9:30 AM EDT Infusion Hematology Oncology at [address] [phone] Hypokalemia Social History Tobacco Use Types Packs/Day Years [...] from your doctor or pharmacy? Never 04/12/2024 [facility] Utilities Answer Date Recorded In the [...] were you homeless or living in a snf (including now)? No 04/12/2024 DH IPV Inpatient [...] as of this encounter Progress Notes * Anna Short RN - 04/29/2024 9:30 AM EDT Images from the original note were not included. INFUSION THERAPY ADMINISTRATION NOTES DIAGNOSIS: Pancreatic Cancer REASON FOR VISIT: Hydration & K- cycle 1 day 8 held today d/t rash. SUBJECTIVE Efrain offers no complaints to this RN. He was seen in clinic prior to infusion. He report there has been on and off blood return with his port over the last week. OBJECTIVE Media Information Document Information Lab: External Laboratory [facility] CBC CMP 04/22/2024 00:00 Attached To: Scan Doc: Lab [[id number]] scans only on 03/30/24 with Provider, Scanning Source Information Provider, Scanning Document History IV ACCESS: Mediport- accessed, some resistance but get a good blood return. No cathflo used. REACTIONS (DESCRIPTION, TIME, INTERVENTION AND EFFECTIVENESS) none ASSESSMENT Efrain was awake, alert and tolerated treatment well. PLAN Return to clinic per routine. documented in this encounter Plan of Treatment Upcoming Encounters Date Type Department Care Team (Late st Contact Info) Description 05/20/2024 8:30 AM EDT Office Visit Hematology/Oncology at [address] [phone] Ministerio Kelly MD [facility] [place] [address] Katherine Guadarrama APRN [address] [place] [address] [place] [address] 05/20/2024 9:00 AM EDT Infusion Hematology Oncology at [address] [phone] 05/30/2024 1:00 PM EDT Tech [place] [phone] Dean Graves 05/30/2024 4:00 PM EDT Office Visit [place] [phone] Derek Evans MD [facility] [place] [address] 06/03/2024 8:30 AM EDT Office Visit Hematology/Oncology at [address] [phone] Ministerio Kelly MD [facility] [place] [address] Katherine Guadarrama WAREHOUSE DELIVERY MANAGER [address] [place] [address] DR HEMATOLOGY AND ONGOLOCY [place], [place] [phone] 06/03/2024 9:00 AM EDT Infusion Hematology Oncology at [address] [phone] documented as of this encounter Visit Diagnoses Diagnosis Hypokalemia Hypopotassemia documented in this encounter Administered Medications Inactive Administered Medications - up to 3 most recent administrations Medication Order MAR Action Action Date Dose Rate Site sodium chloride 0.9% with potassium chloride 20 mEq infusion 500 mL/hr, Intravenous, CONTINUOUS, Starting on Thu04/29/24 at 1000, Until Thu04/29/24 at 1159 New Bag 04/29/2024 9:41 AM EDT 500 mL/hr 500 mL/hr documented in this encounter Care Teams Fur Dressing Supervisor Relationship Specialty Start Date End Date Cedric Rosenbaum DO [address] [place] [phone] PCP - General Family Medicine 03/29/24 documented as of this encounter
--- OUTSIDE RECORDS SUMMARY | 2024-05-14 12:56 | XMS_ITS | Encounter Summary ---
[place] [address] Care Team Providers Care Crankshaft Balancer Name Role Phone Cedric Rosenbaum DO Primary Care Provider [phone] Reason for Visit * Reason Onset Date Comments Follow-up 04/25/2024 Post chemo call Encounter Details Date Type Department Care Team (Late st Contact Info) Description 04/25/2024 Telephone Hematology/Oncology at [address] [phone] Arlet Donald, SAM Follow-up (Post chemo call) Social History Tobacco Use Types Packs/Day Years [...] from your doctor or pharmacy? Never 04/12/2024 [facility] Utilities Answer Date Recorded In [...] Telephone Encounter - Arlet Donald RN - 04/25/2024 11:30 AM EDT Post chemo call Placed call to patient to assess tolerance of first time chemotherapy treatment. Regimen received: Date of treatment: Assessment: Symptom Present (yes[y]/no[n]/ stable[s] from baseline) Additional information/Assessment GI Nausea y some gagging Vomiting n Nausea medication n Tolerating diet y Maintaining fluid intake (indicate volume) y Bowel movements regular y did not go Thursday took some MOM with good results this AM Diarrhea n Mouth sores n General Pain (0 none - 10 high) Some in feet took tylenol and took it away Using pain medications y Fever N but feeling chilled agosto snot have thermometer asked him to go and purchase one and check his temp when he is feeing chilled Neuro Level of fatigue (0 - 5) 0 Falls n Numbness/tingling in arms/legs n Cognitive changes n Skin Skin changes Itchy all over on Thursday04/24/[address] Kelly he can take benadryl 25-50 mg every 6 hours PRN itching and to see PCP to look at it Pinpoint red dots n Other s/s of bleeding n IV site/VAD problems n Musculoskeletal Joint swelling or tenderness n Arthralgias or myalgias n Voiding problems n Color and quality of urine Clear yellow larger amounts Cardio-pulmonary Shortness of breath n Chest pain n Swelling in legs n Calf pain or tenderness n Cough (productive/non-productive) n Psychosocial Coping I Need prescription renewals n Other issues : Anxiety. Support provided Education provided: Plan: Reviewed numbers, pt said he did not get magnet will give him one this week, reviewed everything with Dr. Kelly plan as above, he returns to clinc this Thursday. Reinforced to patient/care-fire observer to call facility 25/05 with any new/worsening signs and symptoms orconcerns or questions. Phone number provided. Pt verbalized understanding and is in agreement with plan. documented in this encounter Plan of Treatment Upcoming Encounters Date Type Department Care Team (Late st Contact Info) Description 05/20/2024 8:30 AM EDT Office Visit Hematology/Oncology at [address] [phone] Ministerio Kelly MD [facility] [place] [address] Katherine Guadarrama APRN [address] [place] [address] [place] [phone] 05/20/2024 9:00 AM EDT Infusion Hematology Oncology at [address] [phone] 05/30/2024 1:00 PM EDT Tech [place] [address] Dena Graves 05/30/2024 4:00 PM EDT Office [place] [address] Derek Evans MD [facility] [place] [place] [address] 06/03/2024 8:30 AM EDT Office Visit Hematology/Oncology at [address] [phone] Ministerio Kelly MD [facility] [place] [address] Katherine Guadarrama APRN [address] [place] [address] DR HEMATOLOGY [place] [address] 06/03/2024 9:00 AM EDT Infusion Hematology Oncology at [address] [phone] documented as of this encounter Visit Diagnoses Not on filedocumented in this encounter Care Teams Crankshaft Balancer Relationship Specialty Start Date End Date Cedric Rosenbaum DO [address] [place] [phone] PCP - General Family Medicine 03/29/24 documented as of this encounter
--- OUTSIDE RECORDS SUMMARY | 2024-05-14 12:56 | XMS_ITS | Encounter Summary ---
[place] [address] Care Team Providers Care Sign Painter Apprentice Name Role Phone Cedric Rosenbaum DO Primary Care Provider [phone] Encounter Details Date Type Department Care Team (Late st Contact Info) Description 04/19/2024 Telephone Hematology/Oncology at [address] [phone] [facility] HEMAT[place] [address] Social History Tobacco Use Types [...] from your doctor or pharmacy? Never 04/12/2024 [facility] Utilities Answer Date Recorded In [...] any time in the past 12 m [facility], were you homeless or living [...] Miscellaneous Notes * Telephone Encounter - Blanche Peng, RD - 04/19/2024 1:15 PM EDT Nutrition Note Returned call to patient today who has complaints of continued bloating after meals. Patient has diagnosis of unresectable pancreatic cancer and plans to start Gemcitabine/Paclitaxel at [facility] in [facility] under Dr. Kelly later this week on 04/22. Patient is taking ZenPep 25 with his three meals/day. He is not currently eating snacks due to feeling too full/bloated. He most recently increased ZenPep 25 dosing to 3 capsules per meal on Sunday 04/15, four days ago. He is appropriately spacing these out throughout meals. He feels uncomfortable with bloating despite this increase. A typical meal is boneless skinless chicken breast, vegetable, ma shed potato. He tried soft tacos over the weekend and had abdominal cramping and bloating afterwards. He denies having much gas. He takes simethicone drops. BM's are only occasionally loose and are brown in color. He is no longer constipated. He occasionally has reflux if he takes in too much fluid at once. He does take protonix. Wt Readings from Last 10 Encounters: 04/12/24 126.3 kg (278 lb 7.1 oz) 04/06/24 127.6 kg (281 lb 4.9 oz) 80# weight loss in past 4 months to April 2024 (23% body weight) - severe Recommendations: Continue with 3 meals/day. Could try increasing to 4 per meal (especially if meal is higher in fat)given bothersome bloating after eating. Discussed how some meals may require 3 capsules and others may require 4 capsules, depending on fat content. Taking simethicone and protonix. Will f/u in clinic on 04/22. documented in this encounter Plan of Treatment Upcoming Encounters Date Type Department Care Team (Late st Contact Info) Description 05/20/2024 8:30 AM EDT Office Visit Hematology/Oncology at [address] [phone] Ministerio Kelly MD [facility] [place] [address] Katherine Guadarrama APRN [address] [place] [address] [place] [address] 05/20/2024 9:00 AM EDT Infusion Hematology Oncology at [address] [phone] 05/30/2024 1:00 PM EDT Tech [place] [address] Dena Graves 05/30/2024 4:00 PM EDT Office Visit [place] [address] Derek Evans MD [facility] [place] [address] 06/03/2024 8:30 AM EDT Office Visit Hematology/Oncology at [address] [phone] Ministerio Kelly MD [facility] [place] [address] Katherine Guadarrama INVOICE CONTROL CLERK [address] [place] [address] DR HEMATOLOGY AND ONGOLOCY [place], [place] [id number] 06/03/2024 9:00 AM EDT Infusion Hematology Oncology at [address] [phone] documented as of this encounter Visit Diagnoses Not on filedocumented in this encounter Care Teams Sign Painter Apprentice Relationship Specialty Start Date End Date Cedric Rosenbaum DO [address] [place] [phone] PCP - General Family Medicine 03/29/24 documented as of this encounter
--- OUTSIDE RECORDS SUMMARY | 2024-05-14 12:56 | XMS_ITS | Encounter Summary ---
[place] [address] Care Team Providers Care Housing Coordinator Name Role Phone Cedric Rosenbaum DO Primary Care Provider [phone] Reason for Visit * Reason Onset Date Comments Medication Refill 04/12/2024 Encounter Details Date Type Department Care Team (Late st Contact Info) Description 04/12/2024 Refill [place]ematology [place] [phone] Kenya Abebe, RN Social History Tobacco Use Types Packs/Day Years [...] from your doctor or pharmacy? Never 04/12/2024 [employer] Utilities Answer Date Recorded In the past 12 months has e [employer], gas, oil, or water [employer] threatened to shut off services in your [...] any time in the past 12 m [facility], were you homeless or [...] 8:30 AM EDT Office Visit Hematology/Oncology at [address] [phone] Ministerio Kelly MD [facility] [place] [address] Katherine Guadarrama APRN [address] [place] [address] H[place]ATOLOGY [place], [place] [address] 05/20/2024 9:00 AM EDT Infusion Hematology Oncology at [address] [phone] 05/30/2024 1:00 PM EDT Tech [place] [address] Dena Graves 05/30/2024 4:00 PM EDT Office [place] [address] Derek Evans MD [facility] [place] [address] 06/03/2024 8:30 AM EDT Office Visit Hematology/Oncology at [address] [phone] Ministerio Kelly MD [facility] [place] [address] Katherine Guadarrama [address] [place] [address] 06/03/2024 9:00 AM EDT Infusion Hematology Oncology at [address] [phone] documented as of this encounter Visit Diagnoses Not on filedocumented in this encounter Care Teams Housing Coordinator Relationship Specialty Start Date End Date Cedric Rosenbaum DO [address] [place] [phone] PCP - General Family Medicine 03/29/24 documented as of this encounter
--- OUTSIDE RECORDS SUMMARY | 2024-05-14 12:56 | XMS_ITS | Encounter Summary ---
Author Organization [facility] Address [facility] [place] [address] Care Team Providers Care Advanced Practice Registered Nurse Name Role Phone Cedric Rosenbaum DO Primary Care Provider [phone] Encounter Details Date Type Department Care Team (Late st Contact Info) Description 04/20/2024 Orders Only Hematology [place] [phone] Ministerio Kelly MD [facility] [place] [address] Social History Tobacco Use Types Packs/Day Years [...] doctor or pharmacy? Never 04/12/2024 [facility] Utilities Answer Date Recorded In [...] were you homeless or living in a fdc (including now)? No 04/12/2024 [facility] IPV Inpatient [...] 8:30 AM EDT Office Visit Hematology/Oncology at [address] [phone] Ministerio Kelly MD [facility] [address] Katherine Guadarrama APRN [address] [place] [address] HEMATOLOGY AND ONGOLOCY [place], [place] [address] 05/20/2024 9:00 AM EDT Infusion Hematology Oncology at [address] [phone] 05/30/2024 1:00 PM EDT Tech [place] [address] Vijaya Gravestanjennifer Dee 05/30/2024 4:00 PM EDT Office Visit [place] [address] Derek Evans MD [facility] [place] [address] 06/03/2024 8:30 AM EDT Office Visit Hematology/Oncology at [address] [phone] Ministerio Kelly MD [facility] [place] [address] Katherine Guadarrama, [address] [place] [address] 06/03/2024 9:00 AM EDT Infusion Hematology Oncology at [address] [phone] documented as of this encounter Visit Diagnoses Not on filedocumented in this encounter Care Teams Advanced Practice Registered Nurse Relationship Specialty Start Date End Date Cedric Rosenbaum DO [address] [place] [phone] PCP - General Family Medicine 03/29/24 documented as of this encounter
--- OUTSIDE RECORDS SUMMARY | 2024-05-14 12:56 | XMS_ITS | Encounter Summary ---
Author Organization [facility] Address [facility] [place] [address] Care Team Providers Care Orthotic Fitter Name Role Phone Cedric Rosenbaum DO Primary Care Provider [phone] Encounter Details Date Type Department Care Team (Late st Contact Info) Description 04/12/2024 Notes [place] [phone] Yiama Arredondo PA [facility] [place] [address] Social History Tobacco Use Types Packs/Day Years [...] your doctor or pharmacy? Never 04/12/2024 [facility] Utilities Answer Date Recorded In the past 12 months has e electric, gas, oil, or water [employer] threatened to shut off services in your [...] on file documented as of this encounter H&P Notes * Yaima Arredondo PA - 04/12/2024 12:19 PM [...] EF, alcohol use disorder, peripheral neuropathy, prior NE, and CHF. Remainder of patient's medical and [...] Prior to Visit Medication Sig Dispense Refill [id number]-ar-wkqtb-D45-pgetoib-ojqshw (Theragran-M Premier 50 Plus) 400-250-375 mcg Tablet Take 1 tablet by mouth daily. 30 tablet 5 high protein nutritional supplement, lactose-free (Ensure Clear) Liquid Take 1 Bottle by mouth 3 times daily. 93177 mL 5 alum-mag hydroxide-simeth (Maalox) 200-200-20 mg/5 [...] mouth 4 times daily. 30 mL 0 qflfsy-wpkmyisy-iekorjl (Zenpep) 25,000-79,000- 105,[address] capsule Take 2 capsule by mouth with meals three times a day and 1 capsule by mouth with snacks 2-3 times a day (max 9/day) 270 cjbbrac30 carvediloL (Coreg) 6.25 mg tablet Take 6.25 [...] EXAM UP TO 1 HR [facility] N/A 03/31/2024 FLUOROSCOPY (WRVU 0.3) performed by Eulogio Marcos MD at [facility] ENDOSCOPY PRO EDG FLEXIBLE TRANSORAL ENDOSCOPIC STENT PLACEMENT W/WIRE & DILATION N/A 03/31/2024 EGD, TRANSORAL; WITH PLACEMENT OF ENDOSCOPIC STENT (WRVU 3.92) performed by Eulogio Marcos MD at [facility] ENDOSCOPY PRO UPGI ENDOSCOPY W/US FN BX N/A 03/31/2024 EGD, W US GUIDED FINE NEEDLE ASPIRATION/BIOPSY (WRVU 4.16) performed by Eulogio Marcos MD at [facility] ENDOSCOPY Social History and Habits: Social History [...] Date Type Department Care Team (Late st [facility] Info) Description 05/20/2024 8:30 AM EDT Office Visit Hematology/Oncology at [address] [phone] Ministerio Kelly MD [facility] [place] [address] Katherine Guadarrama APRN [address] [place] [address] HEMATOLOGY AND ONGOLOCY [place], [place] [phone] 05/20/2024 9:00 AM EDT Infusion Hematology Oncology at [address] [phone] 05/30/2024 1:00 PM EDT Tech [place] [phone] Dena Graves 05/30/2024 4:00 PM EDT Office [place] [address] Derek Evans MD [facility] [place] [address] 06/03/2024 8:30 AM EDT Office Visit Hematology/Oncology at [address] [phone] Ministerio Kelly MD [facility] [place] [address] Katherine Guadarrama APRN [address] [place] [address] DR HEMATOLOGY AND ONGOLOCY [place], [place] [id number] 06/03/2024 9:00 AM EDT Infusion Hematology Oncology at [address] [phone] documented as of this encounter Visit Diagnoses Not on filedocumented in this encounter Care Teams Orthotic Fitter Relationship Specialty Start Date End Date Cedric Rosenbaum DO [address] [place] [address] PCP - General Family Medicine 03/29/24 documented as of this encounter
--- OUTSIDE RECORDS SUMMARY | 2024-05-14 12:56 | XMS_ITS | Encounter Summary ---
[place] [address] Care Team Providers Care Ethernet Network Architect Name Role Phone Cedric Rosenbaum DO Primary Care Provider [phone] Encounter Details Date Type Department Care Team (Latest Contact Info) Description 04/22/2024 10:30 AM EDT Clinical Support Hematology/Oncology at [address] [phone] Blanche Peng, RD [facility] HEMATOLOGY [place] [address] Malignant neoplasm of head of [...] your doctor or pharmacy? Never 04/12/2024 [facility] Utilities Answer Date Recorded In the past 12 months has e [employer], gas, oil, or water [employer] threatened to shut off services in your [...] a senior living (including now)? No 04/12/2024 IPV Inpatient Questions [...] Progress Notes * Blanche Peng, RD - 04/22/2024 10:30 AM EDT Nutrition Note Met with Efrain and his sister in infusion today. Patient is starting his first cycle of Gemcitabine plus abraxane today 04/22/24 for diagnosis of pancreatic cancer, locally advanced unresectable; clinical stage T4N0M0, stage III. Patient reports he has been able to increase his intake of solid foods in the past few weeks since discharge from inpatient stay 03/29-04/06. He says he was told to follow a low residue diet at discharge due to having a duodenal stent placed. He is wishing he could have salads. PO intake also remains limited by bloating. He feels quite full from his meals, does not eat any snacks. He says he has a difficult time passing gas. He takes Simethicone drops BID (script is writtenas 0.6 ml four times daily). Gas-X has not been helpful in the past. Patient drinks 3 Ensure Clear daily. He prefers this over milk-based Ensures. He is lactose intolerant. Bowels have been a little slow. Miralax hasn't been very helpful, but MOM seems to work well. Weight is down 11# in the past ten days. Patient thinks most of this is fluid loss as he had edema during inpatient stay which is much improved now. Wt Readings from Last 10 Encounters: 04/22/24 122.3 kg (269 lb 9.6 oz) 04/12/24 126.3 kg (278 lb 7.1 oz) 04/06/24 127.6 kg (281 lb 4.9 oz) BMI 37.61 390# at highest 12# loss in two weeks 04/06-04/22 (4.2% body weight) - significant *has had some fluid loss 80# weight loss in past 4 months to April 2024 (23% body weight) - severe Diet: Below is his usual intake. He did have some italian food yesterday, but that was unusual. He is edentulous, has dentures at home but these need repairs. 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 BUN/Cr - 11/0.57. Alb - 2.6.Lytes and LFTs o/w unremarkable Nutrition Problem: Involuntary weight loss related to unresectable pancreatic cancer as evidenced by 80# weight loss in past 4 months to April 2024 (23% body weight) - severe. Recommendations: Discussed that I think he can liberalize his diet, start to include more fiber- containing foods. Start with small amounts and chop up if he can't chew thoroughly. ZenPEP 25: taking 3 per meal. Not eating snacks. Still very bloated. Could try increasing to 4 per meal with higher fat meals. Drinking Ensure Clear three bottles per day which is covered by his insurance. Sent message to Heidi Fantasmabradleybeata requesting her to call patient regarding his financial concerns. Will f/u on 04/29 documented in this encounter Plan of Treatment Upcoming Encounters Date Type Department Care Team (Late st Contact Info) Description 05/20/2024 8:30 AM EDT Office Visit Hematology/Oncology at [address] [phone] Ministerio Kelly MD [facility] [place] [address] Katherine Guadarrama APRN [address] [place] [address] HEMATOLOGY [place] [address] 05/20/2024 9:00 AM EDT Infusion Hematology Oncology at [address] [phone] 05/30/2024 1:00 PM EDT Tech [place] [phone] Dena Graves 05/30/2024 4:00 PM EDT Office Visit [place] [phone] Derek Evans MD [facility] [place] [address] 06/03/2024 8:30 AM EDT Office Visit Hematology/Oncology at [address] [phone] Ministerio Kelly MD [facility] [place] [address] Katherine Guadarrama APRN [address] [place] [address] HEMATOLOGY [place] [address] 06/03/2024 9:00 AM EDT Infusion Hematology Oncology at [address] [phone] documented as of this encounter Visit Diagnoses Diagnosis Malignant neoplasm of head of pancreas documented in this encounter Care Teams Ethernet Network Architect Relationship Specialty Start Date End Date Cedric Rosenbaum DO [address] [place] [phone] PCP - General Family Medicine 03/29/24 documented as of this encounter
--- OUTSIDE RECORDS SUMMARY | 2024-05-14 12:56 | XMS_ITS | Encounter Summary ---
Author Organization [facility] Address [facility] [place] [address] Care Team Providers Care Culture Room Worker Name Role Phone Cedric Rosenbaum DO Primary Care Provider [phone] Encounter Details Date Type Department Care Team (Late st Contact Info) Description 04/12/2024 Multidisciplinary Ca re Committee [place] [phone] Alan Silva MD [facility] [place] [address] Social History Tobacco Use Types Packs/Day Years [...] from your doctor or pharmacy? Never 04/12/2024 [facility] Utilities Answer Date Recorded In [...] a nursing home (including now)? No 04/12/2024 IPV Inpatient [...] as of this encounter Progress Notes * Alan Silva MD - 04/12/2024 6:51 AM EDT Images from the original note were not included. DIVISION OF GASTROENTEROLOGY & HEPATOLOGY MULTIDISCIPLINARY NAME: Dylan Michele DATE: 04/12/2024 GI - Tumor Board Note Date Presented: 04/12/2024 Presenting Physician: Ricardo / Hemant Diagnosis/Tumor Site: Pancreas Is this Metastatic Disease: No Synopsis of History/HPI: Symptoms of GOO, unintentional weight loss for preceding few months Imaging: CT A/P (03/25) w/ large uncinate mass, loss of fat plane into D4. Uncovered duodenal stent placed to palliate GOO symptoms at time of EUS. Pathology/Histology: EUS (03/31) w/ adenocarcinoma Stage: locally advanced unresectable Recommendations: seen by Surgical Oncology team while admitted (Dr. Ward). Does not appear to be resectable currently. Recommended up-front chemotherapy and re- staging. Seeing Dr. Kelly later this morning. Likely plan for therapy at [facility]. Dr. Resendiz said there is likely a role for SBRT pending restaging. DISCLAIMER: The patient was discussed and the tumor board made recommendations but it is ultimatelyup to the treatment provider(s) and the patient to determine the patient???s care. Alan Silva MD Advanced Endoscopy Fellow Gastroenterology & Hepatology documented in this encounter Plan of Treatment Upcoming Encounters Date Type Department Care Team (Late st Contact Info) Description 05/20/2024 8:30 AM EDT Office Visit Hematology/Oncology at [address] [phone] Ministerio Kelly MD [facility] [place] [address] Katherine Guadarrama APRN [address] [place] [address] DR HEMATOLOGY [place] [address] 05/20/2024 9:00 AM EDT Infusion Hematology Oncology at [address] [phone] 05/30/2024 1:00 PM EDT Tech [place] [address] Dena Graves 05/30/2024 4:00 PM EDT Office Visit [place] [phone] Derek Evans MD [facility] [place] [address] 06/03/2024 8:30 AM EDT Office Visit Hematology/Oncology at [address] [phone] Ministerio Kelly MD [facility] [place] [address] Katherine Guadarrama APRN [address] [place] [address] HEMATOLOGY AND ONGOLOCY [place], [place] [phone] 06/03/2024 9:00 AM EDT Infusion Hematology Oncology at [address] [phone] documented as of this encounter Visit Diagnoses Not on filedocumented in this encounter Care Teams Culture Room Worker Relationship Specialty Start Date End Date Cedric Rosenbaum DO [address] [place] [phone] PCP - General Family Medicine 03/29/24 documented as of this encounter
--- OUTSIDE RECORDS SUMMARY | 2024-05-14 12:56 | XMS_ITS | Encounter Summary ---
[place] [address] Care Team Providers Care Wire Winding Machine Tender Name Role Phone Cedric Rosenbaum DO Primary Care Provider [phone] Reason for Visit * Reason Onset Date Comments Other 04/25/2024 Outreach re madalyn ncial resources Encounter Details Date Type Department Care Team (Late st Contact Info) Description 04/25/2024 Telephone Hematology/Oncology at [address] [phone] Heidi Glynn, RN CARE TRANSITION OFFICE OF CARE MANAGEMENT Other (Outreach re financial resources) Social History Tobacco Use Types Packs/Day [...] from your doctor or pharmacy? Never 04/12/2024 [facility] Utilities Answer Date Recorded In the past [...] any time in the past 12 m [facility], were you homeless or living in a assisted (including now)? No 04/12/2024 IPV Inpatient Questions [...] encounter Miscellaneous Notes * Telephone Encounter - Gretta Heidi L, RN CARE TRANSITION - 04/25/2024 8:24 AM EDT Request from Blanche Peng RD to reach out to Genny re his finaicla needs. MIRNA Hearn but no answer. Left a message requesting a call back. Financial resources Add: 9am: Call back from Genny. 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 He has no present income. He has applied for SSI and SSDI. He has had his phone interview and is waiting a decision. He is not able to get his SSI now because he has a property he does not live in. Genny does get food stamps. He might be eligible for other state benefits (assistance with rent; assistance with utilities; personal spending funds) if he spends down his resources which are already limited. Community Resources: Genny indicated his sister has applied to the [employer] on his behalf (generally $500 award) and his waiting to hear re this. Gave him information about the [employer] (stipend of $250 month for 6 months) and he plans to apply for this. Discussed applying to the [facility] for $350 towards his rent and Genny plans to email RN CARE TRANSITION his rent statement. VA Benefits: Dhiraj indicated he has someone looking into his eligibility for any benefits throughthe VA. Informed genny of RN CARE TRANSITION contact information and will follow up with Genny as we look at financialresources he might be eligible for. Care Coordination Community Resource documented in this encounter Plan of Treatment Upcoming Encounters Date Type Department Care Team (Late st Contact Info) Description 05/20/2024 8:30 AM EDT Office Visit Hematology/Oncology at [address] [phone] Ministerio Kelly MD [facility] [place] [address] Katherine Guadarrama APRN [address] [place] [address] [place] [address] 05/20/2024 9:00 AM EDT Infusion Hematology Oncology at [address] [phone] 05/30/2024 1:00 PM EDT Tech [place] [address] Dena Graves 05/30/2024 4:00 PM EDT Office [place] [address] Derek Evans MD [facility] [place] [place] [address] 06/03/2024 8:30 AM EDT Office Visit Hematology/Oncology at [address] [phone] Ministerio Kelly MD [facility] [place] [address] Katherine Guadarrama CADDY MASTER [address] [place] [address] DR HEMATOLOGY AND ONGOLOCY [place], [place] [id number] 06/03/2024 9:00 AM EDT Infusion Hematology Oncology at [address] [phone] documented as of this encounter Visit Diagnoses Not on filedocumented in this encounter Care Teams Wire Winding Machine Tender Relationship Specialty Start Date End Date Cedric Rosenbaum DO [address] [place] [phone] PCP - General Family Medicine 03/29/24 documented as of this encounter
--- OUTSIDE RECORDS SUMMARY | 2024-05-14 12:56 | XMS_ITS | Encounter Summary ---
Author Organization Counts Include [address] [address] Care Team Providers Care Piano Machine Operator Name Role Phone Cedric Rosenbaum DO Primary Care Provider [phone] Encounter Details Date Type Department Care Team (Latest Contact Info) Description 2024 Travel Social History Tobacco Use Types Packs/Day [...] from your doctor or pharmacy? Never 04/12/2024 [facility] Utilities Answer Date Recorded In the past 12 months has e test company, gas, oil, or water [employer] threatened to shut off services in your [...] in a jail (including now)? No 04/12/2024 DH IPV Inpatient [...] 8:30 AM EDT Office Visit Hematology/Oncology at [address] [phone] Ministerio Kelly MD [facility] [place] [address] Katherine Guadarrama APRN [address] [place] [address] [place] [address] 05/20/2024 9:00 AM EDT Infusion Hematology Oncology at [address] [phone] 05/30/2024 1:00 PM EDT Tech [place] [address] Dena Graves 05/30/2024 4:00 PM EDT Office [place] [address] Derek Evans MD [facility] [place] [address] 06/03/2024 8:30 AM EDT Office Visit Hematology/Oncology at [address] [phone] Ministerio Kelly MD [facility] [place] [address] Katherine Guadarrama EDITOR PRODUCER [address] [place] [address] DR HEMATOLOGY AND ONGOLOCY [place], [place] [id number] 06/03/2024 9:00 AM EDT Infusion Hematology Oncology at [address] [phone] documented as of this encounter Visit Diagnoses Not on filedocumented in this encounter Care Teams Piano Machine Operator Relationship Specialty Start Date End Date Cedric Rosenbaum DO [address] [place] [phone] PCP - General Family Medicine 03/29/24 documented as of this encounter
--- OUTSIDE RECORDS SUMMARY | 2024-05-14 12:56 | XMS_ITS | Encounter Summary ---
Author Organization [facility] [place] [address] Care Team Providers Care Investment Sales Assistant Name Role Phone Cedric Rosenbaum DO Primary Care Provider [phone] Encounter Details Date Type Department Care Team (Latest Contact Info) Description 04/22/2024 Travel Social History Tobacco Use Types Packs/Day [...] from your doctor or pharmacy? Never 04/12/2024 [facility] Utilities Answer Date Recorded In the past 12 months has e [employer] gas, oil, or water [employer] threatened to shut off services in your [...] in a alf (including now)? No 04/12/2024 DH IPV Inpatient [...] AM EDT Office Visit Hematology/Oncology at [address] [phone] [facility] [place] [place] [address] Katherine Guadarrama APRN [address] [place] [address] HEMATOLOGY [place] [address] 05/20/2024 9:00 AM EDT Infusion Hematology Oncology at [address] [phone] 05/30/2024 1:00 PM EDT Tech [place] [address] Dena Graves 05/30/2024 4:00 PM EDT Office [place] [address] [facility] [place] [address] 06/03/2024 8:30 AM EDT Office Visit Hematology/Oncology at [address] [phone] [facility] [place] [place] [address] Katherine Guadarrama HERITAGE CONSULTANT [address] [place] [address] DR HEMATOLOGY AND ONGOLOCY [place], [place] [phone] 06/03/2024 9:00 AM EDT Infusion Hematology Oncology at [address] [phone] documented as of this encounter Visit Diagnoses Not on filedocumented in this encounter Care Teams Investment Sales Assistant Relationship Specialty Start Date End Date Cedric Rosenbaum DO [address] [place] [phone] PCP - General Family Medicine 03/29/24 documented as of this encounter
--- OUTSIDE RECORDS SUMMARY | 2024-05-14 12:56 | XMS_ITS | Encounter Summary ---
Author Organization [facility] [place] [address] Care Team Providers Care Foreign Policy Officer Name Role Phone Cedric Rosenbaum DO Primary Care Provider [phone] Encounter Details Date Type Department Care Team (Late st Contact Info) Description 04/18/2024 Notes Only Hematology [place] [phone] Anna Almaraz, [facility] Social History Tobacco Use Types Packs/Day Years [...] from your doctor or pharmacy? Never 04/12/2024 [facility] Utilities Answer Date Recorded In the past 12 months has e [employer], gas, oil, or water [employer] threatened to shut off services in your [...] of this encounter Progress Notes * Anna Almaraz, [facility] - 04/18/2024 9:20 AM EDT Clinical Oncology Pharmacist Note Oncology PGx Results PATIENT ID: Dylan Michele is a 54 y.o. male with pancreatic cancer. The patient's current treatment plan includes: gemcitabine and nab-paclitaxel. Pharmacist interpretation of Oncology PGx results is as follows: Interpretation: Gene Based on most recent FDA, CPIC (Clinical Pharmacogenetics Implementation Consortium), and DPWG(Danish pharmacogenetics working group) guidelines: DPYD Normal metabolizer - No action necessary. NUDT15 Normal metabolizer - No action necessary. TPMT Normal metabolizer - No action necessary. UGT1A1 Normal metabolizer - No action necessary. The patient was evaluated by a clinical pharmacist for drug-gene interactions impacted by DPYD, NUDT15, TPMT, and UGT1A1, which is limited to the following medications: 5-Fluorouracil, Capecitabine, Tegafur, Mercaptopurine, Thioguanine, Azathioprine, Belinostat, Irinotecan, and Sacituzumab [employer]can-hziy (brand name Anniey). Please do not hesitate to reach out with any questions. Anna Almaraz RPH April 18, 2024 documented in this encounter Plan of Treatment Upcoming Encounters Date Type Department Care Team (Late st Contact Info) Description 05/20/2024 8:30 AM EDT Office Visit Hematology/Oncology at [address] [phone] Ministerio Kelly MD [facility] [place] [address] Katherine Guadarrama APRN [address] [place] [address] DR HEMATOLOGY AND ONGOLOCY [place], [place] [phone] 05/20/2024 9:00 AM EDT Infusion Hematology Oncology at [address] [phone] 05/30/2024 1:00 PM EDT Tech [place] [phone] Dena rGaves 05/30/2024 4:00 PM EDT Office Visit [place] [phone] Derek Evans MD [facility] [place] [address] 06/03/2024 8:30 AM EDT Office Visit Hematology/Oncology at [address] [phone] Ministerio Kelly MD [facility] [place] [address] Katherine Guadarrama APRN [address] [place] [address] [place] [id number] 06/03/2024 9:00 AM EDT Infusion Hematology Oncology at [address] [phone] documented as of this encounter Visit Diagnoses Not on filedocumented in this encounter Care Teams Foreign Policy Officer Relationship Specialty Start Date End Date Cedric Rosenbaum DO [address] [place] [phone] PCP - General Family Medicine 03/29/24 documented as of this encounter
--- OUTSIDE RECORDS SUMMARY | 2024-05-14 12:56 | XMS_ITS | Encounter Summary ---
Author Organization [facility] Address [facility] [place] [address] Care Team Providers Care Senior Water/Wastewater Engineer Name Role Phone Cedric Rosenbaum DO Primary Care Provider [phone] Encounter Details Date Type Department Care Team (Late st Contact Info) Description 04/22/2024 8:30 AM EDT Office Visit Hematology/Oncology at [address] [phone] Ministerio Kelly MD [facility] [place] [address] Katherine Guadarrama, [employer] TURBINE POWERPLANT MECHANIC [address] [place] [address] DR HEMATOLOGY [place] [address] Malignant neoplasm of head of pancreas Social [...] from your doctor or pharmacy? Never 04/12/2024 [facility] Utilities Answer Date Recorded In the past 12 months has e [employer], gas, oil, or water company threatened to [...] any time in the past 12 m [facility], were you homeless or [...] Sign Reading Time Taken Comments Blood Pressure 110/72 04/22/2024 8:39 AM EDT Pulse 65 04/22/2024 8:39 AM EDT Temperature 36.3 ??C (97.3 ??F) 04/22/2024 8:39 AM ED T Respiratory Rate 18 04/22/2024 8:39 AM EDT Oxygen Saturation 100% 04/22/2024 8:39 AM EDT Inhaled Oxygen Concentration - - Weight 122.3 kg (269 lb 9.6 oz) 04/22/2024 8:39 AM EDT Height 180.3 cm (5' 10.98) 04/22/2024 8:39 AM E DT Body Mass Index 37.62 04/22/2024 8:39 AM EDT documented in this encounter Progress Notes * Ministerio Kelly MD - 04/22/2024 8:30 AM EDT Subjective Patient ID: Dylan [...] with worsening oral intake CT a/p 03/25/24 ([facility] second read, c/2 12/2023) - IMPRESSION 1. Increased size of the primary pancreatic neoplasm with vascular encasement/abutment, as above, as well as contact with the duodenum. 2. No lymphadenopathy or metastatic disease. Transferred to [facility] B. Upper EUS 03/31/24 - Impression: - [...] diagnosis, was found to have had prior IA 4. Alcohol use disorder 5. 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 The history is summarized above. Dylan is accompanied to clinic today by his sister Katherine. Heidi is an RN. He says he is doing ok.He is eating pretty well. He is on a low residue, low fiber diet and eats soft foods because he hasno teeth. He is taking 3 Ensure per day. He has lost weight but notes that his LE edema has largelyresolved. His bowels are a little slow. Miralax has not been effective for him but he started taki ng MOM which has worked better. He is taking zenpep, 3 with meals and 1 with snacks. His energy level has improved and although is not back to baseline. He has neuropathy in his feet which extends tohis upper legs. He also has some in his hands. 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 Labs: WBC/ANC - 8., Hgb/Hct - 12.1/36.6, Plts - 227,000. BUN/Cr - 11/0.57. Alb - 2.6. Lytes and LFTs o/w unremarkable CA 19-9 [...] 86lbs weight loss. He was admitted to [facility] on 03/29/24 with nausea, vomiting, poor PO intake, and recently identified pancreatic head mass on imaging. An EUS was performed and a mass was seen in the uncinate process of the pancreas. FNA showed adenocarcinoma with intact staining for MMR proteins. The mass was associated with duodenal obstruction and a duodenal stent was placed. His case was reviewed at [facility] on 04/12/24. Images were reviewed (CT a/p [...] our preference is generally for mFolfirinox. I am concerned about his PS and his peripheral neuropathy. While neuropathy can be associated with either regimen, it is generally yolanda prominent and acute side effect of folfirinox. Given these factors, we talked about starting with gemcitabine/abraxane with close f/u of the neuropathy symptoms. Note - his PS is actually much better today but given the neuropathy, will plan to go ahead with gemcitabine plus abraxane. We reviewed the schedule of therapy with gemcitabine plus abraxane and potential side effects. Treatment is generally given weekly x 3 followed by one week although we did discuss changing the schedule to every other week if he does not tolerate it well. He met on 04/12/24 with our Genetic Counselor and blood was drawn for genetic testing and that is pending. We plan to begin therapy with gemcitabine plus abraxane today, 04/22/24. We will see him next week. The abraxane dose has been reduced to start but will be increased if tolerated. documented in this encounter Plan of Treatment Upcoming Encounters Date Type Department Care Team (Late st Contact Info) Description 05/20/2024 8:30 AM EDT Office Visit Hematology/Oncology at [address] [phone] Ministerio Kelly MD [facility] [place] [address] Katherine Guadarrama APRN [address] [place] [address] HEMATOLOGY AND ONGOLOCY [place], [place] [phone] 05/20/2024 9:00 AM EDT Infusion Hematology Oncology at [address] [phone] 05/30/2024 1:00 PM EDT Tech [place] [address] Dena Graves 05/30/2024 4:00 PM EDT Office [place] [address] Derek Evans MD [facility] [place] [place] [address] 06/03/2024 8:30 AM EDT Office Visit Hematology/Oncology at [address] [phone] Ministerio Kelly MD [facility] [place] [address] Katherine Guadarrama APRN [address] [place] [address] DR HEMATOLOGY AND ONGOLOCY [place], [place] [id number] 06/03/2024 9:00 AM EDT Infusion Hematology Oncology at [address] [phone] documented as of this encounter Visit Diagnoses Diagnosis Malignant neoplasm of head of pancreas documented in this encounter Care Teams Senior Water/Wastewater Engineer Relationship Specialty Start Date End Date Cedric Rosenbaum DO [address] [place] [phone] PCP - General Family Medicine 03/29/24 documented as of this encounter
--- OUTSIDE RECORDS SUMMARY | 2024-05-14 12:57 | XMS_ITS | Encounter Summary ---
[place] [address] Care Team Providers Care Senior Water Resources Engineer Name Role Phone Cedric Rosenbaum DO Primary Care Provider [phone] Reason for Visit * Auth/Cert (Routine) Specialty Diagnoses / Procedures Referred By Contubaldo t Referred To Contact Diagnoses Nausea & vomiting Procedures ER IPI [place] [address] [facility] Referral ID Status Reason Start Date Expiration Date Visits Re quested Visits Authorized [id number] 1 1 Encounter Details Date Type Department Care Team (Late st Contact Info) Description 03/31/2024 11:20 AM EDT Ancillary [place] [phone] Social History Tobacco Use Types Packs/Day Years Used Date Smoking Tobacco: Former Cigarettes Alcohol Use Standard Drinks/Week Comments Not Currently 182 (1 standard drink = 0.6 oz p ure alcohol) PRAPARE - Transportation Answer Date Re corded In the past 12 months, has l ack of transportation kept you from medical appointments or from getting medications? No 03/03 In the past 12 months, has l ack of transportation kept you from meetings, work, or from getting things needed for daily living? No 03/30/2024 DH IPV Inpatient Questions Answer Date Recorded [...] 8:30 AM EDT Office Visit Hematology/Oncology at [address] [phone] Ministerio Kelly MD [facility] [place] [address] [address] HEMATOLOGY AND [place], [place] [phone] 05/20/2024 9:00 AM EDT Infusion Hematology Oncology at [address] [phone] 05/30/2024 1:00 PM EDT Tech [place] [address] Dena Graves 05/30/2024 4:00 PM EDT Office [place] [address] Derek Evans MD [facility] [place] [address] 06/03/2024 8:30 AM EDT Office Visit Hematology/Oncology at [address] [phone] Ministerio Kelly MD [facility] [place] [address] [address] [place] [address] 06/03/2024 9:00 AM EDT Infusion Hematology Oncology at [address] [phone] documented as of this encounter Procedures Procedure Name Priority Date/Time Associated Diagnosis Comments XR ERCP Routine 03/31/2024 12:37 PM EDT documented in this encounter Results * XR ERCP (03/31/2024 12:37 PM EDT) Narrative RAD - 03/31/2024 12:37 PM EDT See PACS for result report. Emerson Ayala MD IMG FILM LIBRARY O RDERABLES [place], [place] documented in this encounter Visit Diagnoses Not on filedocumented in this encounter Care Teams Senior Water Resources Engineer Relationship Specialty Start Date End Date Cedric Rosenbaum DO [address] [place] [phone] PCP - General Family Medicine 03/29/24 documented as of this encounter
--- OUTSIDE RECORDS SUMMARY | 2024-05-14 12:57 | XMS_ITS | Encounter Summary ---
[place] [address] Care Team Providers Care Limnology Teacher Name Role Phone Cedric Rosenbaum DO Primary Care Provider [phone] Encounter Details Date Type Department Care Team (Late st Contact Info) Description 03/31/2024 5:10 PM EDT Ancillary Procedure [place] [phone] Social History Tobacco Use Types Packs/Day Years [...] things needed for daily living? No 03/30/2024 IPV Inpatient Questions Answer Date Recorded Does [...] Encounters Date Type Department Care Team (Late Contact Info) Description 05/20/2024 8:30 AM EDT Office Visit Hematology/Oncology at [address] [phone] Ministerio Kelly MD [facility] [place] [address] Katherine Guadarrama, [address] HEMATOLOGY AND [place], [place] [phone] 05/20/2024 9:00 AM EDT Infusion Hematology Oncology at [address] [phone] 05/30/2024 1:00 PM EDT Tech [place] [address] Dena Graves 05/30/2024 4:00 PM EDT Office Visit [place] [address] Derek Evans MD [facility] [place] [address] 06/03/2024 8:30 AM EDT Office Visit Hematology/Oncology at [address] [phone] Ministerio Kelly MD [facility] [place] [address] Katherine Guadarrama, [address] HEMATOLOGY AND [place], [place] [phone] 06/03/2024 9:00 AM EDT Infusion Hematology Oncology at [address] [phone] documented as of this encounter Procedures Procedure Name Priority Date/Time Associated Diagnosis Comments REQUEST FOR 2ND READ CT ABDOMEN AND PELVIS Routine 03/31/2024 5:05 PM EDT documented in this encounter Results * Request For 2nd Read CT Abdomen & Pelvis (03/31/2024 5:05 PM EDT) WORKSTATION ID [id number] RAD Anatomical Region Laterality Modality Abdomen, Pelvis [...] who have questions please contact the health career coach that requested your imaging first. ? Electronically signed by: CHRYSTAL RODRIGUEZ MD, [facility] ([phone]), at 04/01/2024 8:51 AM Narrative 04/01/2024 8:51 AM EDT EXAMINATION: REQUEST FOR 2ND READ CT ABDOMEN AND PELVIS CLINICAL HISTORY: pancreatic cancer -needed for staging purpose, please compare to 12/15/23 CT; Sending Institution [facility]; Date of exam [id number]; I believe a reinterpretation of this exam may alter care of Patient. Yes TECHNIQUE: Helical CT of the abdomen and pelvis following the intravenous administration of contrast at [facility] on 03/25/2024 and submitted for reinterpretation. [...] structures: No suspicious lesions. Procedure Note Chrystal Rodriguez MD - 04/01/2024 EXAMINATION: REQUEST FOR 2ND READ CT ABDOMEN AND PELVIS CLINICAL HISTORY: pancreatic cancer -needed for staging purpose, pleasecompare to 12/15/23 CT; Sending Institution [facility]; Date of exam [id number]; I believe a reinterpretation of this exam may alter care ofPatient. Yes TECHNIQUE: Helical CT of the abdomen and pelvis following theintravenous administration of contrast at [facility] on 03/25/2024 andsubmitted for reinterpretation. COMPARISON: [...] patients who have questions please contactthe health career coach that requested your imaging first. Electronically signed by: CHRYSTAL RODRIGUEZ MD, [facility]([phone]), at 04/01/2024 8:51 AM Emerson Ayala MD IMG OUTSIDE INTERP RETATION ORDERABLES documented in this encounter Visit Diagnoses Not on filedocumented in this encounter Care Teams Limnology Teacher Relationship Specialty Start Date End Date Cedric Rosenbaum DO [address] [place] [phone] PCP - General Family Medicine 03/29/24 documented as of this encounter
--- OUTSIDE RECORDS SUMMARY | 2024-05-14 12:57 | XMS_ITS | Encounter Summary ---
Author Organization [facility] [place] [address] Care Team Providers Care Media Theorist And Author Of Name Role Phone Cedric Rosenbaum DO Primary Care Provider [phone] Encounter Details Date Type Department Care Team (Late st Contact Info) Description 04/06/2024 Orders Only [place] [phone] Rita Ward MD [facility] [place] [address] Social History Tobacco Use Types Packs/Day Years [...] things needed for daily living? No 03/30/2024 ON LICENSE OF [facility] Inpatient Questions Answer Date Recorded Does Anyone [...] 8:30 AM EDT Office Visit Hematology/Oncology at [address] [phone] Ministerio Kelly MD [facility] [place] [address] [address] HEMATOLOGY AND [place], [place] [phone] 05/20/2024 9:00 AM EDT Infusion Hematology Oncology at [address] [phone] 05/30/2024 1:00 PM EDT Tech [place] [address] Dena Graves 05/30/2024 4:00 PM EDT Office Visit [place] [address] Derek Evans MD [facility] [place] [address] 06/03/2024 8:30 AM EDT Office Visit Hematology/Oncology at [address] [phone] Ministerio Kelly MD [facility] [place] [address] [address] HEMATOLOGY AND [place], [place] [phone] 06/03/2024 9:00 AM EDT Infusion Hematology Oncology at [address] [phone] documented as of this encounter Visit Diagnoses Not on filedocumented in this encounter Care Teams Media Theorist And Author Of Relationship Specialty Start Date End Date Cedric Rosenbaum DO [address] [place] [phone] PCP - General Family Medicine 03/29/24 documented as of this encounter
--- OUTSIDE RECORDS SUMMARY | 2024-05-14 12:57 | XMS_ITS | Encounter Summary ---
Author Organization [facility] [place] [address] Care Team Providers Care Reception Name Role Phone Cedric Rosenbaum DO Primary Care Provider Reason for Referral * Diagnostic Test (Routine) - Closed Specialty Diagnoses / Procedures Referred By Contac t Referred To Contact Radiology Diagnoses Malignant neoplasm of head of pancreas Procedures IR Mediport Placement Ministerio Kelly MD [facility] [place] [address] [facility] [place] [address] Referral ID Status Reason Start Date Expiration Date V isits Requested Visits Authorized [id number] Closed Specialty Service Requested 04/12/2024 10/12/2025 1 1 Reason for Visit * Reason Comments Advice Only * Consultation (Routine) - Closed Specialty Diagnoses / Procedures Referred By Contac t Referred To Contact Hematology and Oncology Diagnoses Acute abdominal pain Pancreatic mass Diamond Oconnor, DATE NIGHT SITTER [address] [place] [address] [facility] Hem Onc [address] [place] [address] Referral ID Status Reason Start Date Expiration Date V isits Requested Visits Authorized [id number] Closed Consult, Test & Treat 03/30/2024 03/30/2025 1 1 Encounter Details Date Type Department Care Team (Late st Contact Info) Description 04/12/2024 11:00 AM EDT Office Visit Hematology and Oncology at [facility], [place] [address] Ministerio Kelly MD [facility] [address] Malignant neoplasm of head of pancreas; Moderate protein-calorie malnutrition Social History Tobacco Use [...] from your doctor or pharmacy? Never 04/12/2024 [facility] Utilities Answer Date Recorded In the past [address] [facility] [employer], oil, or water [employer] threatened to shut off services in your [...] in the past [address] [facility], were you homeless or living in a senior care (including now)? No 04/12/2024 [facility] Inpatient Questions Answer Date Recorded Does Anyone [...] as of this encounter Progress Notes * Ministerio Kelly MD - 04/12/2024 11:00 AM EDT Subjective Patient ID: Dylan Michele is 53 y.o. Problem List: Pancreatic cancer, locally advanced [...] with worsening oral intake CT a/p 03/25/24 ([facility] second read, c2 12/2023) - IMPRESSION 1. Increased size of the primary pancreatic neoplasm with vascular encasement/abutment, as above, as well as contact with the duodenum. 2. No lymphadenopathy or metastatic disease. Transferred to [facility] B. Upper EUS 03/31/24 - Impression: [...] diagnosis, was found to have had prior NE 4. Alcohol use disorder 5. Peripheral neuropathy, related to Etoh use HPI Dylan Michele is seen for evaluation and management of pancreatic cancer. The history is summarized above. Dylan is accompanied to clinic today by his sister Heidi. Heidi is an RN. He says he is doing ok.He is eating pretty well. He is on a low residue, low fiber diet and eats soft foods because he hasno teeth. He is taking 3 Ensure per day. He thinks his weight has been pretty stable since discharge from hospital. He had quite a bit of edema when he left the hospital. This has gone down although not resolved. His bowels are a little slow. He ist taking a stool softener bid and is going to tryadding miralax. He has some gassiness and abdominal discomfort related to that. He is taking zenpep, 2 with meals and 1 with snacks. His energy level has improved and although is not back to baseline. He has neuropathy in his feet which extends to his upper legs. He also has some in his hands. He feels like this has worsened. 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 Psychiatric: Mood and Affect: Mood normal. Assessment and Plan Dylan Michele is 53 yo, seen for evaluation and management of pancreatic adenocarcinoma, locally advanced unresectable. His [...] 86lbs weight loss. He was admitted to [facility] on 03/29/24 with nausea, vomiting, poor PO intake, and recently identified pancreatic head mass on imaging. An EUS was performed and a mass was seen in the uncinate process of the pancreas. FNA showed adenocarcinoma with intact staining for MMR proteins. The mass was associated with duodenal obstruction and a duodenal stent was placed. His case was reviewed at [facility] today, 04/12/24. Images were reviewed (CT a/p and CT chest). There is no evidence of distant metastatic disease. The primary tumor is considered locally advanced unresectable due to vascular involvement (Dr. Ward had previously seen him in the hospital and agreed that it was unresectable and unlikely to be resectable in the future). The recommendation was for initialchemotherapy followed by restaging and consideration of radiation therapy if no evidence of diseaseprogression. We reviewed the unresectable nature of the disease and that surgical resection is generally felt kedar a necessary component of a potentially curative [...] with close f/u of the neuropathy symptoms. We reviewed the schedule of therapy with gemcitabine plus abraxane. Treatment is generally given weekly followed by one week although we did discuss changing the schedule to every other week if he does not tolerate it well. He has poor venous access, therefore will make a referral for mediport placement. We talked about potential side effects of therapy, including alopecia, nausea/vomiting, diarrh ea, stomatitis, dehydration, taste change, fatigue, myelosuppression with associated risks of infection, bleeding and dose delays, fluid retention, peripheral neuropathy, renal dysfunction, hypersensitivity reactions, and others. He was given an informational handout regarding this regimen. Blood will be drawn today for PGX to be sure he doesn't have variant in DPYD or UGT1A1 that would put him at high risk of severe fluoropyrimidine or irinotecan related toxicity. This is not relevant for initial therapy but I expect that we will be giving fluoropyrimidines and irinotecan in the future. He met today with our Genetic Counselor and blood was drawn for genetic testing and that is pending. I will arrange for a f/u visit in [facility] after the mediport is placed. documented in this encounter Plan of Treatment Upcoming Encounters Date Type Department Care Team (Late st Contact Info) Description 05/20/2024 8:30 AM EDT Office Visit Hematology/Oncology at [address] [phone] Ministerio Kelly MD [facility] [place] [address] [address] HEMATOLOGY AND [place], [place] [phone] 05/20/2024 9:00 AM EDT Infusion Hematology Oncology at [address] [phone] 05/30/2024 1:00 PM EDT Tech [place] [phone] Dena Graves 05/30/2024 4:00 PM EDT Office [place] [phone] Derek Evans MD [facility] [place] [address] 06/03/2024 8:30 AM EDT Office Visit Hematology/Oncology at [address] [phone] Ministerio Kelly MD [facility] [place] [address] [address] HEMATOLOGY AND [place], [place] [phone] 06/03/2024 9:00 AM EDT Infusion Hematology Oncology at [address] [phone] Scheduled Orders Name Type Priority Associated Diagnoses Orde r Schedule CBC (with Diff) Lab Routine Malignant neoplasm of head of pancreas Once a week for 12 Occurrences starting 04/12/2024 until 04/12/2025 Comprehensive metabolic panel (non-fasting) Lab Routine Malignant neoplasm of head of pancreas Once a week for 12 Occurrences starting 04/12/2024 until 04/12/2025 Carbohydrate Antigen 19-9 Lab Routine Malignant neoplasm of head of pancreas Every 4 Weeks for 6 Occurrences starting 04/12/2024 until 04/12/2025 documented as of this encounter Results * IR Mediport Placement [...] Kelly MD CHEMISTRY ORDERABLES Performing Organization Address [facility]/ZIP Co de Phone Number [facility] [place] [address] * (ABNORMAL) Carbohydrate Antigen 19-9 (04/12/2024 12:44 PM EDT) CA 19-9 168.0(H) <=35.0 u/ml [facility] Comment: This result was generated using a Mychal Rosa Elena immunoassay. ??Results obtained from other methods or manufacturers cannot be used interchangeably with this method. Blood 04/12/2024 12:4 4 PM EDT 04/12/2024 12:53 PM EDT Narrative Resulting Agency Comment Spec In Lab Ministerio Kelly MD CHEMISTRY ORDERABLES Performing Organization Address [facility]/ZIP Co de Phone Number [facility] [place] [address] * (ABNORMAL) Comprehensive metabolic panel (non-fasting) (04/12/2024 12:44 PM EDT) Glucose Lvl 89 65 - 199 mg/dL [facility] Comment:Diabetes: >=200 mg/d L plus symptoms BUN 8(L) 10 - 20 mg/dL [facility] Creatinine 0.53(L) 0.80 - 1.50 mg/dL [facility] Sodium 140 135 - 145 mmol/L [facility] Potassium 4.0 3.5 - 5.0 mmol/L [facility] Comment: Please note: ??Patients with WBC >100,000 may have falsely elevated Potassium levels. ??For accurate Potassium quantification in these patients send serum separator tube (gold top) for subsequent determinations. ??Contact the Clinical Chemistry Laboratory if there are any questions. Chloride 102 98 - 107 mmol/L [facility] CO2 31 22 - 31 mmol/L [facility] Anion Gap 7 5 - 15 mmol/L [facility] Calcium 9.2 8.5 - 10.5 mg/dL [facility] Total Protein 5.9(L) 6.1 - 8.0 g/dL [facility] Albumin 3.2 3.2 - 5.2 g/dL [facility] AST 13 0 - 39 unit/L [facility] ALT 14 0 - 55 unit/L [facility] Alk Phos 96 40 - 130 unit/L [facility] Total Bilirubin 0.5 0.2 - 1.3 mg/dL [facility] Estimated GFR 121 >=60 mL/min/1. 73 m?? [facility] Comment: This patient's estimated GFR [...] In Lab Ministerio Kelly MD CHEMISTRY ORDERABLES [facility] [place] [address] documented in this encounter Visit Diagnoses Diagnosis Malignant neoplasm of head of pancreas Moderate protein-calorie malnutrition Malnutrition of moderate degree Malignant neoplasm of head of pancreas documented in this encounter Care Teams Reception Relationship Specialty Start Date End Date Cedric Rosenbaum DO [address] [place] [phone] PCP - General Family Medicine 03/29/24 documented as of this encounter
--- OUTSIDE RECORDS SUMMARY | 2024-05-14 12:57 | XMS_ITS | Encounter Summary ---
Author Organization [facility] Address [facility] [place] [address] Care Team Providers Care Territory Development Manager Name Role Phone Cedric Rosenbaum DO Primary Care Provider [phone] Encounter Details Date Type Department Care Team (Late st Contact Info) Description 04/06/2024 Notes Only Hematology [place] [phone] [place] [address] Social History Tobacco Use Types Packs/Day Years [...] as of this encounter Progress Notes * Adela Shepherd RD - 04/06/2024 11:59 PM EDT [facility] Note Pt received food from the [facility] pantry today. It has been determined that the patient has food insecurity and/or dietary needs. The following action has been taken: Prescribed visit(s) to onsite Food is Medicine Service documented in this encounter Plan of Treatment Upcoming Encounters Date Type Department Care Team (Late st Contact Info) Description 05/20/2024 8:30 AM EDT Office Visit Hematology/Oncology at [address] [phone] Ministerio Kelly MD [facility] [place] [address] Katherine Guadarrama APRN [address] [place] [address] DR HEMATOLOGY AND ONGOLOCY [place], [place] [phone] 05/20/2024 9:00 AM EDT Infusion Hematology Oncology at [address] [phone] 05/30/2024 1:00 PM EDT Tech Visit [place] [address] Dena Graves 05/30/2024 4:00 PM EDT Office Visit [place] [address] Derek Evans MD [facility] [place] [address] 06/03/2024 8:30 AM EDT Office Visit Hematology/Oncology at [address] [phone] Ministerio Kelly MD [facility] [place] [address] Katherine Guadarrama APRN [address] [place] [address] DR HEMATOLOGY AND ONGOLOCY [place], [place] [phone] 06/03/2024 9:00 AM EDT Infusion Hematology Oncology at [address] [phone] documented as of this encounter Visit Diagnoses Not on filedocumented in this encounter Care Teams Territory Development Manager Relationship Specialty Start Date End Date Cedric Rosenbaum DO [address] [place] [phone] PCP - General Family Medicine 03/29/24 documented as of this encounter
--- OUTSIDE RECORDS SUMMARY | 2024-05-14 12:57 | XMS_ITS | Encounter Summary ---
Author Organization [facility] [place] [address] Care Team Providers Care Security Trainer Name Role Phone Cedric Rosenbaum DO Primary Care Provider [phone] Encounter Details Date Type Department Care Team (Late st Contact Info) Description 04/06/2024 Orders Only [place] [phone] Rita Ward MD [facility] [place] [address] Social History Tobacco Use Types Packs/Day Years [...] things needed for daily living? No 03/30/2024 [facility] Inpatient Questions Answer Date Recorded Does [...] as of this encounter Progress Notes * Essie Ayala RN - 04/06/2024 3:22 PM EDT We received a fax stating that the Creon prescribed by Dr. Ward requires a PA. The fax also statesthat Zenpep does not require a PA. New script for Zenpep pended for Dr. Ward to sign. documented in this encounter Plan of Treatment Upcoming Encounters Date Type Department Care Team (Late st Contact Info) Description 05/20/2024 8:30 AM EDT Office Visit Hematology/Oncology at [address] [phone] Ministerio Kelly MD [facility] [place] [address] Katherine Guadarrama APRN [address] [place] [address] DR HEMATOLOGY AND ONGOLOCY [place], [place] [address] 05/20/2024 9:00 AM EDT Infusion Hematology Oncology at [address] [phone] 05/30/2024 1:00 PM EDT Tech [place] [address] Dena Graves 05/30/2024 4:00 PM EDT Office Visit [place] [address] Derek Evans MD [facility] [place] [address] 06/03/2024 8:30 AM EDT Office Visit Hematology/Oncology at [address] [phone] Ministerio Kelly MD [facility] [place] [address] Katherine Guadarrama APRN [address] [place] [address] [place] [phone] 06/03/2024 9:00 AM EDT Infusion Hematology Oncology at [address] [phone] documented as of this encounter Visit Diagnoses Not on filedocumented in this encounter Care Teams Security Trainer Relationship Specialty Start Date End Date Cedric Rosenbaum DO [address] [place] [phone] PCP - General Family Medicine 03/29/24 documented as of this encounter
--- OUTSIDE RECORDS SUMMARY | 2024-05-14 12:57 | XMS_ITS | Encounter Summary ---
Author Organization [facility] [place] [address] Care Team Providers Care Experimental Assembler Name Role Phone Cedric Rosenbaum DO Primary Care Provider [phone] Reason for Visit * Reason Comments Advice Only * Consultation (Routine) - Closed Specialty Diagnoses / Procedures Referred By Ovidio dallas Referred To Contact Hematology and Oncology Diagnoses Pancreatic cancer Rita Ward MD [facility] [place] [address] Referral ID Status Reason Start Date Expiration Date Visits Re quested Visits Authorized [id number] Closed 04/06/2024 04/06/2025 1 1 Encounter Details Date Type Department Care Team (Late st Contact Info) Description 04/12/2024 10:00 AM EDT Clinical Support Hematology [place] [phone] Girish Luz RD Malignant neoplasm of head of pancreas Social [...] from your doctor or pharmacy? Never 04/12/2024 [facility] Utilities Answer Date Recorded In the past 12 months has [employer], gas, oil, or water [employer] threatened to shut off services in [...] Sign Reading Time Taken Comments Blood Pressure 104/77 04/12/2024 9:54 AM EDT Pulse 62 04/12/2024 9:54 AM EDT Temperature 36.5 ??C (97.7 ??F) 04/12/2024 9:54 AM ED T Respiratory Rate 20 04/12/2024 9:54 AM EDT Oxygen Saturation 98% 04/12/2024 9:54 AM EDT Inhaled Oxygen Concentration - - Weight 126.3 kg (278 lb 7.1 oz) 04/12/2024 9:54 AM EDT Height 180.3 cm (5' 11) 04/12/2024 9:54 AM EDT Body Mass Index 38.83 04/12/2024 9:54 AM EDT documented in this encounter Progress Notes * Girish Luz, RD - 04/12/2024 10:00 AM EDT [facility] Initial Assessment Patient Name: Dylan Michele Diagnosis: Pancreatic CA Referred by: Pancreatic IDC Assessment: HPI Patient Active Problem List Diagnosis Code Nausea & vomiting R11.2 Malignant neoplasm of head of pancreas C25.0 Medications: reviewed Labs: reviewed 04/12/2024 04/13/2024 Nutrition Screen Reason for assessment Unintentional weight loss;Symptom management;High risk diagnosis;New consult Total MST Score 3 04/13/2024 Functional Status Appetite Reduced compared to usual intake Early satiety Present Nausea Grades None Vomiting Grades None Diarrhea Grades None Constipation Grades Grade 2: Persistent symptoms with regular use of laxatives or enemas, limiting instrumental ADLs Dentition Edentulous With his sister who lives 10 miles. [place] [facility] [place] 10 years Mixed duffy or mixed fruit Ensure Clear Nutritional drink / dosing three a day, one with each meal,favors this over Ensure or Boost (had thought they were not lactose free) Liimted intake for 3-4 mos, lived on apple sauce, 2-3 ounces of fluid/ lost 80 pounds since end of Nov/Dec Feels pretty delibilliated - ALISON is improving usual weight 340 pounds (highest weight 390/dropped 45 pounds and maintained 340 pounds for quite awhile), here at 260 pounds today Early satiety: Feels full pretty quickly Appetite: I am hungry Feels bloated now--skpped bfast/ and consumed Ensure Clear only ZenPEP: 2 with meals and 1 with snacks Colace daily / will pickling operator miralax once gets home today Slow bowels last 3-4 days / was moving bowels each day/ Infrequent post prandial bloating - but waking up to sensation of bloating during night/ thinks maybe due to slow bowels Denies n/v since home from Potassium: 20 meq each morning Lactose milk: just picked up / oscar begin to use Lactose intolerant since : since 1995, cah tolerate cheese (other than mac and cheese/occas intolerance/ ? BERNY ), Butter, can make him more gassy, buys lactaid ice cream, dislikes : yogurt and cottage cheese No fish mariam tuna but can consume fish burgers and loves scallops, will do some shrimp/cooked Has not tried spicy foods to date B: 2 eggs L: canned carrots/ half can and oranges S: 2 unbreaded chix tenders and oranges B: 3 eggs with cheese Lunch: chicken tenders/ 3 and green beans (1/2 can) D: 2 chix tenders and green beans B: ground ham and cheese, 2 eggs and cheese L : chopsuey(1-2 cups) D: 3 chix tenders Food stamps: 279 a month / new to food stamps Fluids: cran apple or cran grape / typically juice in between meals [employer] to shop/ neuropathy pre-existing Has two roommates 04/13/2024 Food History, Access and Intake Meal preparation patterns Canned Who prepares meals? Patient/Self Snap Yes Food Pantry Yes Use of oral nutritional supplements Ensure Clear Has two roommates who he has lived with for some years, sister with him today lives locally 04/12/2024 04/13/2024 Food Insecurity Screening Within the past 12 months, you worried that your food would run out before you got the money to buymore. Sometimes Within the past 12 months, the food you bought just didn't last and you didn't have money to get more. Sometimes Referral to [facility] Food Pantry Yes 04/13/2024 Pancreatic Enzymes Are you taking pancreatic enzymes? Yes Cost per prescription 0 Dose of enzyme Zenpep 25,000 04/13/2024 Nutrition Characteristics Insufficient Energy Intake Present Loss of Muscle Mass Yes Fluid Accumulation Mild-moderate 04/12/2024 04/13/2024 Anthropometric Assessment Information Height 180.3 cm Weight 126.3 kg [place] Body Weight (IBW) (kg) 79.27 BMI (Calculated) 38.83 Estimated calorie needs 2400 Estimated protein needs 104 04/13/2024 Nutrition Diagnosis Problems Inadequate oral intake;Severe muscle loss;Altered GI function;Severe protein/calorie malnutrition;Chewing difficulty;Limited access to nutrition related supplies Signs and Symptoms > 5 % uinintentional weight loss in 1 month (Severe);Weight loss;Constipation;Decline in physiological function;Muscle wasting;Electrolyte mineral abnormalitites 80 pounds weight loss since Nov/Dec Edentulous since Nov +Early satiety/ does sense appetite +BERNY on ZenPEP Has been connected with Food pantry more recently/ really helpful Needs prescription for Ensure Clear/ [place] Medicaid [place] Nutrition Intervention: Management of early satiety Discussed BERNY / dosing and timing of enzymes, recommend increase to 3 with meals and one with snacks Ensure Clear: w meals three times/D / will fax [place] Medicaid [place] form, requested prescription sent to [facility] Emphasis on meeting kcal and protein needs as best as possible/ remains on low fiber diet secondaryto duodenal stent but requires soft, moist easy to chew/swallow foods given edentulous It has been determined that the patient has food insecurity and/or dietary needs. The following action has been taken: Tailored healthy groceries : one bag Nutrition Goals: Educational Handouts provided: [employer] booklet/Nutrition Other Recommendations: Goals of MNT for patients with pancreatic CA Monitoring and Evaluation: I will send Blanche Peng RD at [facility] message/ request follow up with Efrain once he begins treatmentthere. I have provided him with my card and contact information should he have any questions in the meantime. Thank you for this consult. GIRISH LUZ RD documented in this encounter Plan of Treatment Upcoming Encounters Date Type Department Care Team (Late Contact Info) Description 05/20/2024 8:30 AM EDT Office Visit Hematology/Oncology at [address] [phone] Ministerio Kelly MD [facility] [place] [address] Katherine Guadarrama APRN [address] [place] [address] HEMATOLOGY AND ONGOLOCY [place], [place] [id number] 05/20/2024 9:00 AM EDT Infusion Hematology Oncology at [address] [phone] 05/30/2024 1:00 PM EDT Tech [place] [address] Pennynjbasil Dena L 05/30/2024 4:00 PM EDT Office Visit [place] [phone] Derek Evans MD [facility] [place] [address] 06/03/2024 8:30 AM EDT Office Visit Hematology/Oncology at [address] [phone] Ministerio Kelly MD [facility] [place] [address] Katherine Guadarrama, [address] HEMATOLOGY AND ONGOLOCY [place], [place] [id number] 06/03/2024 9:00 AM EDT Infusion Hematology Oncology at [address] [phone] documented as of this encounter Visit Diagnoses Diagnosis Malignant neoplasm of head of pancreas documented in this encounter Care Teams Experimental Assembler Relationship Specialty Start Date End Date Cedric Rosenbaum DO [address] [place] [phone] PCP - General Family Medicine 03/29/24 documented as of this encounter
--- OUTSIDE RECORDS SUMMARY | 2024-05-14 12:57 | XMS_ITS | Encounter Summary ---
Author Organization [facility] [place] [address] Care Team Providers Care Wire Coiner Name Role Phone Cedric Rosenbaum DO Primary Care Provider [phone] Reason for Referral * Surgical (Routine) - Closed Specialty Diagnoses / Procedures Referred By Contac t Referred To Contact General Surgery Diagnoses Pancreatic mass [place] [address] [facility] [address] [place] [address] Referral ID Status Reason Start Date Expiration Date V isits Requested Visits Authorized [id number] Closed Consult, Test & Treat 04/06/2024 04/06/2025 1 1 * Consultation (Routine) - Duplicate Referral Specialty Diagnoses / Procedures Referred By Contac t Referred To Contact Hematology and Oncology Diagnoses Pancreatic mass [place] [address] [facility] Hem Onc Office [address] [place] [phone] Referral ID Status Reason Start Date Expiration Date Visits Requested Visits Authorized [id number] Duplicate Referral Consult, Test & Treat 04/06/2024 04/06/2025 1 1 Reason for Visit * Reason Comments Weight Loss Bloated * Auth/Cert (Routine) Specialty Diagnoses / Procedures Referred By Ovidio dallas Referred To Contact Diagnoses Nausea & vomiting Procedures ER IPI [place] [address] [facility] Referral ID Status Reason Start Date Expiration Date Visits Re quested Visits Authorized [id number] 1 1 Encounter Details Date Type Department Care Team (Latest Contact Info) Description 03/29/2024 4:55 PM EDT - 04/06/2024 12:30 PM EDT Hospital Encounter Hematology/Oncology Unit Level 1 Wing D at [place] [phone] [place] [address] Pennie [place] [address] [place] [address] [place] [address] [place] [address] Pancreatic mass Discharge Disposition: Home Social History Tobacco Use Types Packs/Day Years Used Date Smoking Tobacco: Former Cigarettes Tobacco Cessation:Counseling Given: Not Answered Alcohol Use Standard Drinks/Week Comments Not Currently [...] Sign Reading Time Taken Comments Blood Pressure 108/75 04/06/2024 7:35 AM EDT Pulse 72 04/06/2024 7:35 AM EDT Temperature 36.3 ??C (97.3 ??F) 04/06/2024 7:35 AM ED T Respiratory Rate 16 04/06/2024 7:35 AM EDT Oxygen Saturation 99% 04/06/2024 7:35 AM EDT Inhaled Oxygen Concentration - - Weight 127.6 kg (281 lb 4.9 oz) 04/06/2024 3:07 AM EDT Height 180.3 cm (5' 11) 03/29/2024 4:21 PM EDT Body Mass Index 39.23 03/29/2024 4:21 PM EDT documented in this encounter Discharge Summaries * Emerson Ayala MD - 04/06/2024 10:39 AM EDT Discharge Summary Patient Name: Dylan Michele Patient Age: 53 y.o. Language: Moroccan Race: White Ethnicity: Not nor Admit date: 03/29/2024 Discharge date and time: 04/06/2024 Attending Physician: Emerson Ayala MD Discharge Physician: Emerson Ayala Follow-up Recommendations for Providers: Continued follow up for management of surgery and surgical oncology Inpatient Provider Contact Information: For questions regarding this document or issues relating to this hospitalization on the Medical Service, please contact your inpatient physician through the [facility] . Issues afterhours and on weekends will be handled by the Hospitalist staff on-call. Discharge Diagnoses (Hospital Problems) and Secondary Diagnoses (Chronic Problems): Active Hospital Problems Diagnosis Nausea & vomiting Resolved Hospital Problems No resolved problems to display. There are no active non-hospital problems to display for this patient. Operations/Major Procedures: Operations: Procedure(s): EGD, W US GUIDED FINE NEEDLE ASPIRATION/BIOPSY (WRVU 4.16) FLUOROSCOPY (WRVU 0.3) EGD, TRANSORAL; WITH PLACEMENT OF ENDOSCOPIC STENT (WRVU 3.92) 03/31/2024 Other Major Procedures: History of Presentation: Mr. Dylan Michele is a 53 year old male with PMH significant for HFrEF (now recovered, last EF 60-65% in 04/2023) presenting with nausea, vomiting, poor PO intake, and recently identified pancreatic head mass on imaging. Beginning in September 2023, Efrain noted unintentional [...] Since September, he reports 86lbs weight loss. Over the last 5 weeks, patient reports minimal oral intake of both liquids and solids due to poor appetite, early satiety, and nausea. States that he is able to drink just a few ounces of liquid daily and has only been able to eat half a can of soup or ravioli before feeling full. He feels particularly bloated in the lower abdomen and often experiences pain in the epigastric region and bilateral lower quadrants. Endorses frequent nausea and approximately 1 episode of bilious, non-bloody emesis daily. Denies fevers, chills, shortness of breath, chest pain, constipation, or diarrhea. He does also note worsening numbness, tingling, and burning pain in the bilateral legs, distal arms, and left face, which he thinks began prior to poor appetite. Notably, patient has a history of heavy tobacco and alcohol use. He reports drinking 26oz of Schnapps daily for the last several years, and that he had previously been drinking more. Has smoked 1 ppdfor approx. 30 years. Last drink and cigarette were approximately 5 weeks ago, as he noted that they made him feel more nauseous and contributed to emesis. He has quit both alcohol and tobacco cold turkey in the past, but has relapsed due to stressful life events (I.E; of his ex-). He hasnot found success with AA or nicotine replacement products in the past. Hospital Course: #failure to thrive with #Nausea #Vomiting #Weight loss #Severe protein-calorie malnutrition #Hypokalemia 2/ #Pancreatic mass likely pancreatic cancer #High risk for refeeding syndrome. Patient admitted with nausea, vomiting, poor PO intake, and recently identified pancreatic head mass on imaging. Received 2 L NS bolus in the ED followed by NS 100cc/hr. Zofran PO/IV for nausea. - Repleted K prn. EGD/EUS done 03/31 shows Pancreas uncinate mass. Fine needle biopsy performed. On-sitecytopathology read suggestive of malignancy. Malignant duodenal obstruction. Uncovered duodenal stent successfully placed. On 04/01, he continued to have similar symptoms of early satiety and only able to tolerate small amount of liquid despite duodenal stent placement. GI team recommended obtaining a small bowel follow-through to evaluate for stent patency which resulted ok. Pathology returned as pancreatic adenocarcinoma. He was also started on simethicone, stool softeners and Maalox. Nutrition team was consulted and he was started on Ensure supplements. Initially started on clear liquid diet post biopsy and diet was slowly advanced to low residue diet. Oncology and surgical onc team were consulted and they advised outpatient follow up. He tolerated the diet well before discharge. #Alcohol use disorder #Prior tobacco use BIT team was consulted for help coping with serious illness, alcohol use disorder/smoking cessationresources. Vital Signs at Discharge: BP: 108/75, Heart Rate: 72, Temp: 36.3 ??C (97.3 ??F), Resp: 16, BMI (Calculated): 36.96 Height: 180.3 cm (5' 11) (03/29/24 1621) Weight: 127.6 kg (281 lb 4.9 oz) (04/06/24 0307) Functional and Cognitive Status: stable/good Important Studies and Lab Data: Labs: Last 3 wbc, hgb, hct plt Recent Labs 04/03/24 0815 04/02/24 0328 04/01/24 0451 WBC 8.4 8.5 7.9 HGB 13.6* 13.6* 13.8 HCT 42.8 41.1 42.7 PLATELET 245 244 281 Last 3 Lytes Recent Labs 04/06/24 0359 04/05/24 0456 04/04/24 0501 NA 140 142 140 K 3.4* 3.2* 3.1* CL 100 102 100 CO2 31 30 31 BUN 5* 4* 6* CREATININE 0.59* 0.53* 0.55* Last 3 LFTs Recent Labs 04/02/24 0328 04/01/24 0451 03/31/24 0409 AST 14 18 15 ALT 13 13 11 ALKPHOS 94 100 104 BILITOT 0.6 0.8 0.6 Studies: Results for orders placed or performed during the hospital encounter of 03/29/24 XR Chest One View (Exam End: 03/29/2024 9:34 PM) Result Value WORKSTATION ID [id number] Impression No acute finding. Preliminary report signed by: Dominic Healy MD at 03/29/2024 9:38 PM I have personally reviewed the image(s) and the resident's interpretation and agree with the findings, Kelsie Goodman MD at 03/29/2024 10:36 PM Thank you for letting us participate in the care of this patient. If you are a health care provider and have any questions regarding this report, please contact the number below. For patients who have questions please contact the health intensive care unit registered nurse that requested your imaging first. Electronically signed by: Kelsie Goodman MD, [facility] ([phone]), at 03/29/2024 10:[address] Chest wo Contrast (Generic) (Exam End: 03/31/2024 5:35 PM) Result Value WORKSTATION ID [id number] Impression No evidence for intrathoracic metastasis Thank you for letting us participate in the care of this patient. If you are a health care provider and have any questions regarding this report, please contact the number below. For patients who have questions please contact the health intensive care unit registered nurse that requested your imaging first. Request For 2nd Read CT Abdomen & Pelvis (Exam End: 03/31/2024 5:05 PM) Result Value WORKSTATION ID [id number] Impression 1. Increased size of the primary pancreatic neoplasm with vascular encasement/abutment, as above, as well as contact with the duodenum. 2. No lymphadenopathy or metastatic disease. Thank you for letting us participate in the care of this patient. If you are a health care provider and have any questions regarding this report, please contact the number below. For patients who have questions please contact the health intensive care unit registered nurse that requested your imaging first. Electronically signed by: CHRYSTAL RODRIGUEZ MD, [facility] ([phone]), at 04/01/2024 8:51 AM XR Abdomen 1 view Contrast Challenge (Exam End: 04/01/2024 4:58 PM) Result Value WORKSTATION ID [id number] Impression No radiographic evidence of obstruction. Paucity of small bowel gas. Oral contrast scattered throughout the large bowel and rectum. Thank you for letting us participate in the care of this patient. If you are a health care provider and have any questions regarding this report, please contact the number below. For patients who have questions please contact the health intensive care unit registered nurse that requested your imaging first. Electronically signed by: Paul Rodriguez DO, [facility] ([phone]), at 04/01/2024 5:12 PM XR Abdomen 1 view Contrast Challenge (Exam End: 04/01/2024 11:15 PM) Result Value WORKSTATION ID [id number] Impression No small bowel obstruction. Enteric contrast column within the nondilated descending and sigmoid colon. Thank you for letting us participate in the care of this patient. If you are a health care provider and have any questions regarding this report, please contact the number below. For patients who have questions please contact the health intensive care unit registered nurse that requested your imaging first. Electronically signed by: Evelin Mendez MD, [facility] ([phone]), at 04/02/2024 8:44 AM XR Abdomen 1 view Contrast Challenge (Exam End: 04/02/2024 5:37 AM) Result Value WORKSTATION ID [id number] Impression No small bowel obstruction. Enteric contrast column within the nondilated descending and sigmoid colon. Thank you for letting us participate in the care of this patient. If you are a health care provider and have any questions regarding this report, please contact the number below. For patients who have questions please contact the health intensive care unit registered nurse that requested your imaging first. Electronically signed by: Evelin Mendez MD, [facility] ([phone]), at 04/02/2024 8:44 AM XR Abdomen 1 view Contrast Challenge (Exam End: 04/02/2024 10:54 AM) Result Value WORKSTATION ID [id number] Impression Nonobstructive bowel gas pattern. Minimal residual contrast remains in the descending and rectosigmoid colon. Thank you for letting us participate in the care of this patient. If you are a health care provider and have any questions regarding this report, please contact the number below. For patients who have questions please contact the health intensive care unit registered nurse that requested your imaging first. Electronically signed by: Katherine Salazar MD, [facility] ([phone]), at 04/02/2024 5:05 PM 03/11 CT chest and 03/26 CT abdomen/pelvis w/ contrast. Pertinent findings: - A mass in the inferior head of the pancreas measures 7.8 x 4.9cm on coronal images and 7 x 4.9cm on axial images. Findings consistent with pancreatic malignancy. - Borderline splenomegaly 13.9cm. EGD/EUS 03/31 Impression: - Pancreas uncinate mass. Fine needle biopsy performed. On-site cytopathology read suggestive of malignancy. - Malignant duodenal obstruction. Uncovered duodenal stent successfully placed. Recommendation: - Await final cytology results. - Return to hospital lee. - OK for clear liquid diet. Advance to full liquid diet tomorrow if tolerating clears. - Check CA 19-9. Obtain non-contrast CT chest to complete staging. - Referral to Oncology and Surgical oncology. Pathology (03/31/2024) DISCUSSION Pancreas: uncinate (EUS-guided FNA) - Adenocarcinoma. Block Antibody Result (Positive/Negative) A1 MLH1 Positive, intact nuclear staining MSH2 Positive, intact nuclear staining MSH6 Positive, intact nuclear staining PMS2 Positive, intact nuclear staining Interpretation: Immunostains for MLH1, MSH2, MSH6, and PMS2 reveal intact nuclear staining in tumor cells. Pending Studies and Lab Data: none Discharge Conditions/Prognosis: stable/fair Discharge to: home Updated Allergies/ADRs: Allergies Allergen Reactions Nsaids (Non-Steroidal Anti-Inflammatory Drug) Other (See Comments) Lactose Prednisone Immunizations Given this Hospitalization: There is no immunization history on file for this patient. Discharge Medications: Your Medications New Medications Dose Details alum-mag hydroxide-simeth 200-200-20 mg/5 mL Suspension Commonly known as: Maalox Take 10 mLs by mouth 3 times daily as needed. 10 mL Quantity: 355 mL Refills: 0 docusate sodium 100 mg capsule Commonly known as: Colace Take 1 capsule by mouth 2 times daily for 10 days. 100 mg Quantity: 20 capsule Refills: 0 multivitamin with minerals 9 mg iron-400 mcg Tablet Commonly known as: Thera M Take 1 tablet by mouth daily. Start taking on: April 07, 2024 1 tablet Quantity: 90 tablet Refills: 3 ondansetron ODT 4 mg disintegrating tablet Commonly known as: Zofran-ODT Take 1 tablet by mouth every 8 hours as needed for Nausea. 4 mg Quantity: 20 tablet Refills: 0 pantoprazole EC [address] tablet Commonly known as: Protonix Take 1 tablet by mouth daily. Start taking on: April 07, 2024 40 mg Quantity: 90 tablet Refills: 3 simethicone 40 mg/0.6 mL Drops, Suspension Commonly known as: Mylicon Take 0.6 mLs by mouth 4 times daily. 40 mg Quantity: 30 mL Refills: 0 Continued medications with new dosing Dose Details potassium chloride 20 mEq ER tablet Commonly known as: Klor-Con, K-Tab Take 1 tablet by mouth daily. What changed: when to take this 1 tablet Quantity: 10 tablet Refills: 0 Continued medications, unchanged Dose Details carvediloL 6.25 mg tablet Commonly known as: Coreg Take 6.25 mg by mouth 2 times daily (with meals). 6.25 mg Refills: 0 STOPPED Medications atorvastatin 40 mg tablet Commonly known as: Lipitor chlorthalidone 25 mg tablet Commonly known as: Hygroton esomeprazole [address] capsule Commonly known as: NexIUM famotidine 20 mg tablet Commonly known as: Pepcid lisinopriL 10 mg tablet Commonly known as: Zestril spironolactone 25 mg tablet Commonly known as: Aldactone torsemide 20 mg tablet Commonly known as: Demadex Smoking Status at Discharge: Social History Tobacco Use Smoking Status Former Current packs/day: 0.50 Types: Cigarettes Smokeless Tobacco Not on file Instructions Given to Patient at Discharge: Patient Instructions Instructions on Discharge to Home Why you were hospitalized - failure to thrive 2/2 new pancreatic cancer Call your doctor or seek medical attention if you develop the following - chest pain, shortness of breath, fever, cough, weakness in an arm or leg Activity level - as tolerated Diet - low residue diet Driving - as before hospitalization Shower/Bath - permitted Wound Care - none Home Oxygen therapy - none Specific instructions related to your condition: Please continue follow up with oncology and surgical oncology teams for further management. Follow-up: You have a hospital follow up appointment scheduled with your primary care providers office, April - 1:[address] David Pierce, colleague of Dr. Cedric Rosenbaum Future Appointments Date Time Provider Department Center 04/20/2024 2:45 PM Ministerio Kelly MD [facility] 05/09/2024 12:30 PM Alysha Hayes [facility] VAS LAB [facility]IE CASH 05/09/2024 2:30 PM Kaylin Boggs MD [facility] [place] [facility] Your Inpatient Doctor: Emerson Ayala MD Your Primary Care Provider: Cedric Rosenbaum, For questions regarding this document or issues relating to this hospitalization on the Medical Service, please contact your inpatient physician through the [facility]edom[facility] Inspector . Issues afterhours and on weekends will be handled by the Hospitalist staff on-call. The Section of Hospital Medicine hopes you have a safe and stress free transition out of the hospital. As an additional safeguard to help this transition happen seamlessly we have created a tool to help us stay in communication in case there are any questions or concerns after your discharge. If you are not being discharged to another care setting, where they will take over your medical care, please anticipate a brief questionnaire from our Section that will help us ensure you do not have any issues with your discharge and are as safe and healthy as possible. This questionnaire will be sent out after your discharge, and will be delivered via text primarily but also email if texting is not possible. If there do happen to be any issues or concerns once you leave [facility], we apologize for any undue stress this may cause. Please do not hesitate to call your PCP office or seek further medical assistance if there are any [facility]. This questionnaire is not meant to provide immediate access to a physician, but has been created to help us ease the transition out of the hospital. Someone from our Section will reach out after the questionnaire is completed if you have raised any concerns, or have requested a callback, to help ensure your concerns are addressed and a plan is made to keep you safe and healthy. Thankyou in advance for your time completing this questionnaire. General Instructions Future Appointments and Orders Future Appointments and Orders Future Appointments Provider Department Dept Phone 04/20/2024 2:45 PM Ministerio Kelly MD Hematology and Oncology at [facility] Arrive at: Clinical Haematologist Area 3K [phone] 05/09/2024 12:30 PM Alysha Hayes Vascular Lab at [facility] Arrive at: Clinical Haematologist Area 3V [phone] 05/09/2024 2:30 PM Kaylin Boggs MD Vascular Surgery at [facility] Arrive at: Clinical Haematologist Area 3V [phone] Check-in: [place] Clinical Haematologist Area 3V. Future Orders Complete By Expires Referral to General Surgery [[id number] Custom] As directed Process Instructions: If no progress note charted, please enter Clinical details in comments. If you are requesting vascular access please answer the VAD questions Due to the OR limitations at the [facility], if you are considering surgery for this patient, and their BMI is greater than 50, please refer to [facility] (or a division other than [facility]). Scheduling Instructions: Questions: Are you seeking Vascular Access?: No My question or request is: pancreatic adenoca-new diagnosis-needs to start managment -surg onc follow up requested Referral to Hematology and Oncology [REF33 Custom] As directed Process Instructions: If no progress note charted, please enter Clinical details in comments. Scheduling Instructions: Questions: Referring to Hemophilia/thrombosis Clinic?: No My question or request is: pancreatic adenoca-new diagnosis-needs to start managment Discharge References/Attachments None documented in this encounter Discharge Instructions * Discharge Instructions* Essie Whittaker CMA - 03/31/2024 12:35 PM EDT YOU ARE SCHEDULED FOR A FOLLOW UP APPOINTMENT AT YOUR PRIMARY CARE PROVIDER'S OFFICE, ON 2024 AT 1:20PM * Patient Instructions* Emerson Ayala MD - 03/30/2024 10:37 AM EDT Instructions on Discharge to Home Why you were hospitalized - failure to thrive 2/2 new pancreatic cancer Call your doctor or seek medical attention if you develop the following - chest pain, shortness of breath, fever, cough, weakness in an arm or leg Activity level - as tolerated Diet - low residue diet Driving - as before hospitalization Shower/Bath - permitted Wound Care - none Home Oxygen therapy - none Specific instructions related to your condition: Please continue follow up with oncology and surgical oncology teams for further management. Follow-up: You have a hospital follow up appointment scheduled with your primary care providers office, April - 1:[address] David Pierce, colleague of Dr. Cedric Rosenbaum Future Appointments Date Time Provider Department Center 04/20/2024 2:45 PM Ministerio Kelly MD [facility] 05/09/2024 12:30 PM Alysha Hayes [facility] VAS LAB EBONIE CASH 05/09/2024 2:30 PM Kaylin Boggs MD [facility] Your Inpatient Doctor: Emerson Ayala MD Your Primary Care Provider: Cedric Rosenbaum DO [phone] For questions regarding this document or issues relating to this hospitalization on the Medical Service, please contact your inpatient physician through the [facility] Speedometer Inspector . Issues afterhours and on weekends will be handled by the Hospitalist staff on-call. The Section of Hospital Medicine hopes you have a safe and stress free transition out of the hospital. As an additional safeguard to help this transition happen seamlessly we have created a tool to help us stay in communication in case there are any questions or concerns after your discharge. If you are not being discharged to another care setting, where they will take over your medical care, please anticipate a brief questionnaire from our Section that will help us ensure you do not have any issues with your discharge and are as safe and healthy as possible. This questionnaire will be sent out after your discharge, and will be delivered via text primarily but also email if texting is not possible. If there do happen to be any issues or concerns once you leave [facility], we apologize for any undue stress this may cause. Please do not hesitate to call your PCP office or seek further medical assistance if there are any immediate [facility]. This questionnaire is not meant to provide immediate access to a physician, but has been created to help us ease the transition out of the hospital. Someone from our Section will reach out after the questionnaire is completed if you have raised any concerns, or have requested a callback, to help ensure your concerns are addressed and a plan is made to keep you safe and healthy. Thankyou in advance for your time completing this questionnaire. documented in this encounter Medications at Time of Discharge Medication Sig Dispensed Refills Start Date End Date alum-mag hydroxide-simeth (Maalox) 200-200-20 mg/5 mL Suspension [...] mouth 4 times daily. 30 mL 04/06/2024 carvediloL (Coreg) 6.25 mg tablet Take 6.25 mg by mouth 2 times daily (with meals). docusate sodium (Colace) 100 mg capsule Take 1 capsule by mouth 2 times daily for 10 days. 20 capsule 04/06/2024 04/16/2024 multivitamin with minerals (Thera M) 9 mg iron-400 mcg Tablet Take 1 tablet by mouth daily. 90 tablet 3 04/07/2024 04/29/2024 documented as of this encounter Progress Notes * Farideh Dhaliwal RN - 04/06/2024 12:30 PM EDT Illness Severity [x] Stable [] Watcher [] Unstable Patient Summary Reason for admission: Nausea & Vomiting. New pancreatic mass. Relevant PMH: Obesity, IN, ETOH use, Smoker, CHF, Hep. C. Significant weight loss 86lbs since September 2023. Poor PO intake for the last 5 weeks. Quit drinking & smoking 5 weeks ago. 03/31 Pancreatic head mass biopsy, stent to duodenum; bx + pancreatic ca. (Pt aware) Significant 24 hour events: 6/5 AM: Pt A/Ox4. VSS on RA. Ambulating frequently around unit independently. Tolerating fiber/residue restricted diet well, no complaints of abdominal pain or nausea. Pt continues to endorse bloating but reports less discomfort than he was experiencing prior. Surg/onc MD at bedside to discuss plangoing forward, see notes. Discharge orders placed, PIV removed per policy/orders. AVS reviewed withpatient, pt endorsed understanding, all questions answered. All belongings returned to patient. Pt discharging home without services. Brought down to the discharge lounge via wheelchair accompanied by [employer]ARD ASSEMBLER around 12:25. Chemo plan & supportive medication: Baseline Weight: 122.9 kg (with shoes) Most recent weight: Weight: 126.9 kg (279 lb 12.2 oz) (04/05/24 0545) Action List Fiber/residue restricted diet Follow up with Oncology outpt * Sophie Parmar MSW - 04/06/2024 10:59 AM EDT Per rounds, patient needing assistance with Ensure and food. Patient requires lactose free Ensure which [facility] did not have. Social work still able to fill food order for patient and food was dropped off at bedside. Per patient, he has applied for [employer] and is waiting a decision. Social work remains following. [facility] Hem/Onc Pgr: [phone] * Emerson Ayala MD - 04/06/2024 10:46 AM EDT Hospital Medicine - Attending Day of Discharge Documentation Discharge diagnosis Active Hospital Problems Diagnosis Nausea & vomiting Resolved Hospital Problems No resolved problems to display. Secondary Issues There are no active non-hospital problems to display for this patient. I have personally seen and examined the patient and they are ready for discharge. Select the appropriate statement that describes your involvement and care and omit the other: I spent >30 minutes (Day of Discharge Code 33575) involved in the final examination of the patient, discussion of the hospital stay, instructions for continuing care to all relevant caregivers, and preparation of discharge records, prescriptions and referral forms. Plans Discharge to home Follow-up scheduled with PCP, oncology. Please see the Discharge Summary for complete details of any medication changes and additional plans. * Nuha Hernandez RD - 04/06/2024 10:46 AM EDT Nutrition Progress Note Dylan Michele is a 53 y.o. male with PMH significant for HFrEF (now recovered, last EF 60-65% in 04/2023) presenting with nausea, vomiting, poor PO intake, and recently identified pancreatic head mass on imaging. Procedures: 03/31: EGD/EUS done shows Pancreas uncinate mass. Fine needle biopsy performed. On-sitecytopathology read suggestive of malignancy. Malignant duodenal obstruction. Uncovered duodenal stent successfully placed. Reason for Assessment: Follow-up Nutrition Recommendations: Fiber/residue Restricted Diet Encourage and monitor PO intake Please document %PO in flowsheets ONS and snacks PRN Continue daily multivitamin Mg and phos with daily labs - replenish prn Monitor BM Daily weights Provided fiber-restricted diet education and handout Recommended smaller, more frequent meals Discussed adding protein or dairy product at all meals/snacks Reviewed foods not recommended list Discussed reintroduction of fiber into diet Answered all follow-up questions Current Nutrition Regimen: Active Orders Diet Fiber/Residue Restricted diet Frequency: Effective Now Number of Occurrences: Until Specified Nourishments Adult diet Oral Supplements Ensure Enlive Frequency: TID Number of Occurrences: Until Specified Assessment: Lab Results Component Value Date NA 140 04/06/2024 K 3.4 (L) 04/06/2024 CL 100 04/06/2024 CO2 31 04/06/2024 BUN 5 (L) 04/06/2024 CREATININE 0.59 (L) 04/06/2024 ESTGFR 117 04/06/2024 MAGNESIUM 0.69 04/03/2024 CALCIUM 8.3 (L) 04/06/2024 PHOS 2.7 04/03/2024 AST 14 04/02/2024 ALT 13 04/02/2024 ALKPHOS 94 04/02/2024 BILITOT 0.6 04/02/2024 HA1C 5.2 03/30/2024 No results found for: POCGLU Patient Lines/Drains/Airways Status Active Nutritional LDAs Name Placement date Placement time Site Days PIV 04/02/24 0950 20 gauge;1.75 in length cephalic vein (lateral side of arm), left 04/02/24 0950 -- 4 Oxygen Therapy / Airway Device: None (Room air) Shift Pressure Injury Prevention Occiput: No Injury Thoracic Spine: No Injury Sacral: No Injury Ischial - left: No Injury Ischial - right: No Injury Heel - left: No Injury Heel - right: No Injury Elbow - left: No Injury Elbow - right: No Injury Device Sites: IV sites, O2 sat monitor Last Bowel Movement: 04/05/24 Intake/Output Summary (Last 24 hours) at 04/06/2024 1046 Last data filed at 04/05/2024 1745 Gross per 24 hour Intake 600 ml Output -- Net 600 ml Relevant medications: colace, lovenox, thera m, protonix, simethicone liquid, others noted Anthropometrics: Admit Weight: 120.2 kg Estimated body mass index is 39.23 kg/m?? as calculated from the following: Height as of this encounter: 180.3 cm (5' 11). Weight as of this encounter: 127.6 kg (281 lb 4.9 oz). [place] Body Weight (IBW) (kg): 78.18 Usual Body Weight: ~345lbs in Sep 2023 (per patient) Weight Loss: unintentional Duration of Weight Loss: 6 Months Weight Lost: 75lbs % of Weight Lost: 21.7% Wt Readings from Last 10 Encounters: 04/06/24 127.6 kg (281 lb 4.9 oz) Patient Vitals for the past 168 hrs: Weight 04/06/24 0307 127.6 kg (281 lb 4.9 oz) 04/05/24 0545 126.9 kg (279 lb 12.2 oz) 04/04/24 0906 126.8 kg (279 lb 8.7 oz) Weight Source: Standing Scale Estimated / Assessed Needs: Kcal / K - 2458 Kcal (16 Kcal/Kg - 20 Kcal/Kg) Estimated Protein Needs: 117 g - 156 g (1.5 g/Kg - 2.0 g/Kg IBW) Nutrition intake and intake history / interview: 04/06: Spoke with pt at bedside. He reports appetite is pretty good, noting he still feels bloated after eating. He ate 25% of his pot roast last night for dinner with mandarin oranges and an Ensure Clear. This morning he ate scrambled eggs and an Ensure. He reports he will be starting on PERT as an outpatient. Provided fiber/residue restricted diet education and handouts. 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 Answered all follow-up questions. 04/04: Pt remains on clear liquids, per team will not be advancing diet further and pending Jtube placement. Per notes, intake of 2 Ensure clear, jello, and juice yesterday (630kcal, 16g protein). 04/01: Pt seen for follow up. He remains on a clear liquid diet and reports eating only a jello in the past 48 hrs, endorsing bloating and distention after eating it I feel like I just had my fourth plate of thanksgiving dinner. He is sipping on Powerade Zero, with only 1/2 bottle consumed since Thursday evening. Encouraged trial of Ensure clear for protein, pt agreeable. Per MD, GI is working to fix obstruction issue so holding off on nutrition support at this time. Pt hypokalemic, showing initial signs of refeeding syndrome. 03/30: Consulted for malnutrition eval and poor po intake. Pt NPO for EGD today. Dylan reports no n/v/abd pain although no po intake either. Reports since September 2023 feeling nauseous and bloated.Reports only tolerating sips of water and ~4oz of applesauce before feeling full. 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 Reports a ~80lbs unintentional weight loss with most of the weight loss occurring in the last 3 months as po intake worsened (UBW confirmed per [facility] documentation). Addendum: Consulted for MST eval, see above assessment. Nutrition Focused Physical Exam: Performed (03/30/24) Subcutaneous Fat Loss Orbital region: None present Upper arm region (triceps/biceps): None present Thoracic and Lumbar regions (ribs, lower back, and maxillary line): Not assessed Lean Muscle Loss Catholic region (temporalis muscle): Mild Clavicle bone region (pectoralis major): Mild Dorsal hand (interosseous muscle): None present Shoulder (deltoid): Mild Scapular bone region (latissimus dorsi, trapezius muscles): Not assessed Thigh region (quadriceps muscle): Not assessed Posterior calf region (gastrocnemius muscle): None present Fluid Accumulation Fluid Accumulation: Not assessed Malnutrition Diagnosis: Identified: less than or equal to 75% of estimated energy requirement for greater than or equal to 1 month, greater than 10% weight loss in 6 months, and Mild Lean Muscle Loss is consistent with Severe protein-calorie malnutrition in the setting of chronic illness (NANO Gao J Parenteral Enteral Nutr. 2011; 36(3): 273-83) Nutrition to continue to follow up while inpatient Thank you, Nuha Hernandez, MS, RD, LD Clinical Nutrition * Geovanny Retana, RN - 04/05/2024 7:39 PM EDT Page Sent Successfully Page Confirmation To Pager number: [phone] From Submitter: Geovanny Retana Urgency Level: Call Me Callback Number: [phone] The following Message was sent: [Call Me] - Callback:[phone] [id number] Dewing: Pt requests stool softener - Geovanny Retana The following status was returned from the sql server dba: Page for [phone] successfully sent to [phone] having status of Available. * Farideh Dhaliwal RN - 04/05/2024 6:30 PM EDT Illness Severity [x] Stable [] Watcher [] Unstable Patient Summary Reason for admission: Nausea & Vomiting. New pancreatic mass. Relevant PMH: Obesity, IN, ETOH use, Smoker, CHF, Hep. C. Significant weight loss 86lbs since September 2023. Poor PO intake for the last 5 weeks. Quit drinking & smoking 5 weeks ago. 03/31 Pancreatic head mass biopsy, stent to duodenum; bx + pancreatic ca. (Pt aware) Significant 24 hour events: 64 AM: Pt A/Ox4. VSS on RA. K+ 3.2 this AM, K+ replenished per MAR orders (40 mEq potassium chloride tabs x2). Ambulating frequently around unit, at least 6x this shift. Drank 3 ensures. Diet advanced to fiber/residue restricted diet and ate mashed potatoes for lunch and 25% of dinner. No complaints of pain or nausea, continues to complain of bloating but reports he is belching more today which seems to help with the discomfort. Had 1 small formed BM (per pt). Resting comfortably between care. Chemo plan & supportive medication: Baseline Weight: 122.9 kg (with shoes) Most recent weight: Weight: 126.9 kg (279 lb 12.2 oz) (04/05/24 0545) Neuro: WDL Neuro Checks: (See below) CV: WDL tachy int. Telemetry: No Neurovasc: .WDL except, edema, neurovascular assessment upper, neurovascular assessment lower BUE/BLE N/T +, edema left ankle/foot VTE Prophylaxis: anticoagulant therapy lovenox Pulmonary: .WDL except, breath sounds clr/dim O2 Device: None (Room air) 2L + home CPAP for sleep GI: .WDL except, appearance/characteristics, GI symptoms LBM: 04/05/24 Fingerstick order: No : .WDL except, urine decreased urinary output Musculoskeletal: .WDL except, mobility generalized weakness Pain/Location: 0 (04/05/24 0815) / abdomen (04/03/24 0239) Mobility Plan: SBA Bed alarm sensitivity: Medium Skin: .WDL except, color, characteristics intact. BLE blotchy/dusky cool. Gout - Left great toe. Psych/Social: sisters Action List Fiber/residue restricted diet Nausea control Electrolyte replacement J-Tube placement? Ambulate Discharge Plan: pending Consults: Gastroenterology PT [] OT [] SOFTWARE WRITER [] Last Flu vaccine: Last Covid Test Result: Situational Awareness & Contingency Planning Lives with 2 roommates Synthesis (Verbal Only) (Brief summary, ask questions, restate lara action/to do items) * Emerson Ayala MD - 04/05/2024 11:41 AM EDT Hospital Medicine Attending Daily Progress Note Admit Date: 03/29/2024 Hospital Day 7 days Active Hospital Problems Diagnosis Nausea & vomiting Resolved Hospital Problems No resolved problems to display. PMH There are no active non-hospital problems to display for this patient. Inpatient Medications: Scheduled simethicone 40 mg Oral 4 Times Daily pantoprazole EC 40 mg Oral Daily carvediloL 6.25 mg Oral BID WC multivitamin with minerals 1 tablet Oral Daily thiamine 100 mg Oral Daily sodium chloride 0.9 % (flush) 5 mL Intravenous BID enoxaparin 40 mg Subcutaneous Nightly Continuous infusions: PRN: alum-mag hydroxide-simeth, sodium chloride 0.9 % (flush), lidocaine, melatonin, ondansetron ODT OR ondansetron Interval History: - No acute events overnight -continues to tolerate ensure and increasing oral intake daily -surg onc to talk to the pt today if he agrees to get J tube before discharge Physical Exam Vitals Range last 24 hrs Temperature Temp: [36.5 ??C (97.7 ??F)-36.8 ??C (98.2 ??F)] Heart Rate Heart Rate: [70-71] Blood Pressure BP: (81-115)/(51-78) Respiratory Rate Resp: [16-18] SpO2 SpO2: [97 %-100 %] Intake/Output Summary (Last 24 hours) at 04/05/2024 1141 Last data filed at 04/05/2024 0600 Gross per 24 hour Intake 360 ml Output 425 ml Net -65 ml Patient Vitals for the past 168 hrs: Weight 04/05/24 0545 126.9 kg (279 lb 12.2 oz) 04/04/24 0906 126.8 kg (279 lb 8.7 oz) 03/30/24 0020 122.9 kg (270 lb 15.1 oz) 03/29/24 1621 120.2 kg (265 lb) Body mass index is 39.02 kg/m??. Physical Exam General: chronically ill-appearing male. HEENT: Anicteric sclerae, normal conjunctivae. Dry mucous membranes Neck: Neck veins flat. No tracheal deviation Cor: Normal rate, regular rhythm; S1/S2; no murmurs or rubs appreciated Lungs: Breathing non-labored. Clear to auscultation Abdomen: Soft, non-distended. Mild tenderness to palpation in epigastric region. Normal bowel sounds Extremities: Warm, well perfused. 1+ pitting edema. 2+ peripheral pulses Neurologic: Alert, oriented, cooperative Skin: No rashes or lesions appreciated Studies reviewed in eDH. Remarkable for the following: LABS: Last 3 wbc, hgb, hct plt Recent Labs 04/03/24 0815 04/02/24 0328 04/01/24 0451 WBC 8.4 8.5 7.9 HGB 13.6* 13.6* 13.8 HCT 42.8 41.1 42.7 PLATELET 245 244 281 Last 3 Lytes Recent Labs 04/05/24 0456 04/04/24 0501 04/03/24 0815 NA 142 140 143 K 3.2* 3.1* 3.4* CL 102 100 101 CO2 30 31 33* BUN 4* 6* 6* CREATININE 0.53* 0.55* 0.55* Last 3 LFTs Recent Labs 04/02/24 0328 04/01/24 0451 03/31/24 0409 AST 14 18 15 ALT 13 13 11 ALKPHOS 94 100 104 BILITOT 0.6 0.8 0.6 FSBG Trend No results for input(s): POCGLU in the last 72 hours. MICRO: No results for input(s): URINECULTURE in the last 720 hours. No results for input(s): GRAMSTAIN, BFCX, LOWERRESPCX, TISSUECX in the last 720 hours. No results for input(s): BLOODCX in the last 720 hours. ECG: No results for input(s): DIAGLINE, QTCCALC in the last 720 hours. VASCULAR: No results for input(s): VBTEXTRPT in the last 720 hours. IMAGING: Results for orders placed or performed during the hospital encounter of 03/29/24 XR Chest One View (Exam End: 03/29/2024 9:34 PM) Result Value WORKSTATION ID [id number] Impression No acute finding. Preliminary report signed by: Dominic Healy MD at 03/29/2024 9:38 PM I have personally reviewed the image(s) and the resident's interpretation and agree with the findings, Kelsie Goodman MD at 03/29/2024 10:36 PM Thank you for letting us participate in the care of this patient. If you are a health care provider and have any questions regarding this report, please contact the number below. For patients who have questions please contact the health intensive care unit registered nurse that requested your imaging first. Chest wo Contrast (Generic) (Exam End: 03/31/2024 5:35 PM) Result Value WORKSTATION ID [id number] Impression No evidence for intrathoracic metastasis Thank you for letting us participate in the care of this patient. If you are a health care provider and have any questions regarding this report, please contact the number below. For patients who have questions please contact the health intensive care unit registered nurse that requested your imaging first. Request For 2nd Read CT Abdomen & Pelvis (Exam End: 03/31/2024 5:05 PM) Result Value WORKSTATION ID [id number] Impression 1. Increased size of the primary pancreatic neoplasm with vascular encasement/abutment, as above, as well as contact with the duodenum. 2. No lymphadenopathy or metastatic disease. Thank you for letting us participate in the care of this patient. If you are a health care provider and have any questions regarding this report, please contact the number below. For patients who have questions please contact the health intensive care unit registered nurse that requested your imaging first. Electronically signed by: CHRYSTAL RODRIGUEZ MD, [facility] ([phone]), at 04/01/2024 8:51 AM XR Abdomen 1 view Contrast Challenge (Exam End: 04/01/2024 4:58 PM) Result Value WORKSTATION ID [id number] Impression No radiographic evidence of obstruction. Paucity of small bowel gas. Oral contrast scattered throughout the large bowel and rectum. Thank you for letting us participate in the care of this patient. If you are a health care provider and have any questions regarding this report, please contact the number below. For patients who have questions please contact the health intensive care unit registered nurse that requested your imaging first. Electronically signed by: Paul Rodriguez DO, [facility] ([phone]), at 04/01/2024 5:12 PM XR Abdomen 1 view Contrast Challenge (Exam End: 04/01/2024 11:15 PM) Result Value WORKSTATION ID [id number] Impression No small bowel obstruction. Enteric contrast column within the nondilated descending and sigmoid colon. Thank you for letting us participate in the care of this patient. If you are a health care provider and have any questions regarding this report, please contact the number below. For patients who have questions please contact the health intensive care unit registered nurse that requested your imaging first. Electronically signed by: Evelin Mendez MD, [facility] ([phone]), at 04/02/2024 8:44 AM XR Abdomen 1 view Contrast Challenge (Exam End: 04/02/2024 5:37 AM) Result Value WORKSTATION ID [id number] Impression No small bowel obstruction. Enteric contrast column within the nondilated descending and sigmoid colon. Thank you for letting us participate in the care of this patient. If you are a health care provider and have any questions regarding this report, please contact the number below. For patients who have questions please contact the health intensive care unit registered nurse that requested your imaging first. Electronically signed by: Evelin Mendez MD, [facility] ([phone]), at 04/02/2024 8:44 AM XR Abdomen 1 view Contrast Challenge (Exam End: 04/02/2024 10:54 AM) Result Value WORKSTATION ID [id number] Impression Nonobstructive bowel gas pattern. Minimal residual contrast remains in the descending and rectosigmoid colon. Thank you for letting us participate in the care of this patient. If you are a health care provider and have any questions regarding this report, please contact the number below. For patients who have questions please contact the health intensive care unit registered nurse that requested your imaging first. Electronically signed by: Katherine Salazar MD, [facility] ([phone]), at 04/02/2024 5:05 PM OTHER Studies: 03/11 CT chest and 03/26 CT abdomen/pelvis w/ contrast. Pertinent findings: - A mass in the inferior head of the pancreas measures 7.8 x 4.9cm on coronal images and 7 x 4.9cm on axial images. Findings consistent with pancreatic malignancy. - Borderline splenomegaly 13.9cm. EGD/EUS 03/31 Impression: - Pancreas uncinate mass. Fine needle biopsy performed. On-site cytopathology read suggestive of malignancy. - Malignant duodenal obstruction. Uncovered duodenal stent successfully placed. Recommendation: - Await final cytology results. - Return to hospital lee. - OK for clear liquid diet. Advance to full liquid diet tomorrow if tolerating clears. - Check CA 19-9. Obtain non-contrast CT chest to complete staging. - Referral to Oncology and Surgical Oncology. Pathology (03/31/2024) DISCUSSION Pancreas: uncinate (EUS-guided FNA) - Adenocarcinoma. Block Antibody Result (Positive/Negative) A1 MLH1 Positive, intact nuclear staining MSH2 Positive, intact nuclear staining MSH6 Positive, intact nuclear staining PMS2 Positive, intact nuclear staining Interpretation: Immunostains for MLH1, MSH2, MSH6, and PMS2 reveal intact nuclear staining in tumor cells. Assessment and Plan: Mr. Dylan Michele is a 53 year old male with PMH significant for HFrEF (now recovered, last EF 60-65% in 04/2023) presenting with nausea, vomiting, poor PO intake, and recently identified pancreatic head mass on imaging. EGD/EUS done 03/31 shows pancreas uncinate mass. Fine needle biopsy performed. On-sitecytopathology read suggestive of malignancy. Malignant duodenal obstruction. Uncovered duodenal stent successfully placed. Pathology returned as pancreatic adenocarcinoma. Pt continues to try tolerating ensure and has improve oral intake. Surg onc consulted for possible Jtube before discharge #Nausea #Vomiting #Weight loss #Severe protein-calorie malnutrition #pancreatic adenocarcinomia #Hypokalemia #High risk for refeeding syndrome. - s/p NS 100cc/hr. - Zofran PO/IV for nausea. - Repleting K prn - Trend BMP, Ca, Mg. - Nutrition consult. - s/p endoscopy w/ biopsy. - low residue diet - surgical onc consulted for J tube placement #Alcohol use disorder #Prior tobacco use - BIT consult for help coping with serious illness, alcohol use disorder/smoking cessation resources. #FEN/PPx/Disposition Fluids: s/p 2L NS bolus Electrolytes: Ongoing K repletion Nutrition: low residue diet DVT PPx: lovenox QD. Disposition: pending clinical course. Code Status: full code. Anticipated Disposition:pending course Goals of Care: Team Pager( Coverage 25/05): #[phone] PCP: Cedric Rosenbaum DO [phone] Attestation: IPI Certification I certify that I am a [facility] credentialed attending provider with admitting privileges and that the patient meets or has met medical necessity to require an inpatient IPI level of care meeting a minimumof two midnights or is on the CMS inpatient only procedure list (status C) due to: Inability to tolerate POs, new diagnosis of pancreatic adenocarcinoma Emerson Ayala MD 04/05/2024 * Emerson Ayala MD - 04/04/2024 12:40 PM EDT Hospital Medicine Attending Daily Progress Note Admit Date: 03/29/2024 Hospital Day 6 days Active Hospital Problems Diagnosis Nausea & vomiting Resolved Hospital Problems No resolved problems to display. PMH There are no active non-hospital problems to display for this patient. Inpatient Medications: Scheduled pantoprazole EC 40 mg Oral Daily carvediloL 6.25 mg Oral BID WC multivitamin with minerals 1 tablet Oral Daily thiamine 100 mg Oral Daily sodium chloride 0.9 % (flush) 5 mL Intravenous BID enoxaparin 40 mg Subcutaneous Nightly Continuous infusions: PRN: simethicone, alum-mag hydroxide-simeth, sodium chloride 0.9 % (flush), lidocaine, melatonin, ondansetron ODT OR ondansetron Interval History: - No acute events overnight -continues to try tolerating ensure but still not having good oral intake -surg onc to see if pt can get J tube before discharge Physical Exam Vitals Range last 24 hrs Temperature Temp: [36.4 ??C (97.5 ??F)-36.8 ??C (98.2 ??F)] Heart Rate Heart Rate: [70-83] Blood Pressure BP: (99-108)/(68-75) Respiratory Rate Resp: [13-18] SpO2 SpO2: [99 %-100 %] Intake/Output Summary (Last 24 hours) at 04/04/2024 1240 Last data filed at 04/04/2024 0628 Gross per 24 hour Intake 578 ml Output 300 ml Net 278 ml Patient Vitals for the past 168 hrs: Weight 04/04/24 0906 126.8 kg (279 lb 8.7 oz) 03/30/24 0020 122.9 kg (270 lb 15.1 oz) 03/29/24 1621 120.2 kg (265 lb) Body mass index is 38.99 kg/m??. Physical Exam General: chronically ill-appearing male. HEENT: Anicteric sclerae, normal conjunctivae. Dry mucous membranes Neck: Neck veins flat. No tracheal deviation Cor: Normal rate, regular rhythm; S1/S2; no murmurs or rubs appreciated Lungs: Breathing non-labored. Clear to auscultation Abdomen: Soft, non-distended. Mild tenderness to palpation in epigastric region. Normal bowel sounds Extremities: Warm, well perfused. 1+ pitting edema. 2+ peripheral pulses Neurologic: Alert, oriented, cooperative Skin: No rashes or lesions appreciated Studies reviewed in eDH. Remarkable for the following: LABS: Last 3 wbc, hgb, hct plt Recent Labs 04/03/24 0815 04/02/24 0328 04/01/24 0451 WBC 8.4 8.5 7.9 HGB 13.6* 13.6* 13.8 HCT 42.8 41.1 42.7 PLATELET 245 244 281 Last 3 Lytes Recent Labs 04/04/24 0501 04/03/24 0815 04/02/24 1605 NA 140 143 141 K 3.1* 3.4* 3.1* CL 100 101 101 CO2 31 33* 29 BUN 6* 6* 6* CREATININE 0.55* 0.55* 0.47* Last 3 LFTs Recent Labs 04/02/24 0328 04/01/24 0451 03/31/24 0409 AST 14 18 15 ALT 13 13 11 ALKPHOS 94 100 104 BILITOT 0.6 0.8 0.6 FSBG Trend No results for input(s): POCGLU in the last 72 hours. MICRO: No results for input(s): URINECULTURE in the last 720 hours. No results for input(s): GRAMSTAIN, BFCX, LOWERRESPCX, TISSUECX in the last 720 hours. No results for input(s): BLOODCX in the last 720 hours. ECG: No results for input(s): DIAGLINE, QTCCALC in the last 720 hours. VASCULAR: No results for input(s): VBTEXTRPT in the last 720 hours. IMAGING: Results for orders placed or performed during the hospital encounter of 03/29/24 XR Chest One View (Exam End: 03/29/2024 9:34 PM) Result Value WORKSTATION ID [id number] Impression No acute finding. Preliminary report signed by: Dominic Healy MD at 03/29/2024 9:38 PM I have personally reviewed the image(s) and the resident's interpretation and agree with the findings, Kelsie Goodman MD at 03/29/2024 10:36 PM Thank you for letting us participate in the care of this patient. If you are a health care provider and have any questions regarding this report, please contact the number below. For patients who have questions please contact the health intensive care unit registered nurse that requested your imaging first. Electronically signed by: Kelsie Goodman MD, [facility] ([phone]), at 03/29/2024 10:[address] Chest wo Contrast (Generic) (Exam End: 03/31/2024 5:35 PM) Result Value WORKSTATION ID [id number] Impression No evidence for intrathoracic metastasis Thank you for letting us participate in the care of this patient. If you are a health care provider and have any questions regarding this report, please contact the number below. For patients who have questions please contact the health intensive care unit registered nurse that requested your imaging first. Request For 2nd Read CT Abdomen & Pelvis (Exam End: 03/31/2024 5:05 PM) Result Value WORKSTATION ID [id number] Impression 1. Increased size of the primary pancreatic neoplasm with vascular encasement/abutment, as above, as well as contact with the duodenum. 2. No lymphadenopathy or metastatic disease. Thank you for letting us participate in the care of this patient. If you are a health care provider and have any questions regarding this report, please contact the number below. For patients who have questions please contact the health intensive care unit registered nurse that requested your imaging first. Electronically signed by: CHRYSTAL RODRIGUEZ MD, [facility] ([phone]), at 04/01/2024 8:51 AM XR Abdomen 1 view Contrast Challenge (Exam End: 04/01/2024 4:58 PM) Result Value WORKSTATION ID [id number] Impression No radiographic evidence of obstruction. Paucity of small bowel gas. Oral contrast scattered throughout the large bowel and rectum. Thank you for letting us participate in the care of this patient. If you are a health care provider and have any questions regarding this report, please contact the number below. For patients who have questions please contact the health intensive care unit registered nurse that requested your imaging first. Electronically signed by: Paul Rodriguez DO, [facility] ([phone]), at 04/01/2024 5:12 PM XR Abdomen 1 view Contrast Challenge (Exam End: 04/01/2024 11:15 PM) Result Value WORKSTATION ID [id number] Impression No small bowel obstruction. Enteric contrast column within the nondilated descending and sigmoid colon. Thank you for letting us participate in the care of this patient. If you are a health care provider and have any questions regarding this report, please contact the number below. For patients who have questions please contact the health intensive care unit registered nurse that requested your imaging first. Electronically signed by: Evelin Mendez MD, [facility] ([phone]), at 04/02/2024 8:44 AM XR Abdomen 1 view Contrast Challenge (Exam End: 04/02/2024 5:37 AM) Result Value WORKSTATION ID [id number] Impression No small bowel obstruction. Enteric contrast column within the nondilated descending and sigmoid colon. Thank you for letting us participate in the care of this patient. If you are a health care provider and have any questions regarding this report, please contact the number below. For patients who have questions please contact the health intensive care unit registered nurse that requested your imaging first. Electronically signed by: Evelin Mendez MD, [facility] ([phone]), at 04/02/2024 8:44 AM XR Abdomen 1 view Contrast Challenge (Exam End: 04/02/2024 10:54 AM) Result Value WORKSTATION ID [id number] Impression Nonobstructive bowel gas pattern. Minimal residual contrast remains in the descending and rectosigmoid colon. Thank you for letting us participate in the care of this patient. If you are a health care provider and have any questions regarding this report, please contact the number below. For patients who have questions please contact the health intensive care unit registered nurse that requested your imaging first. Electronically signed by: Katherine Salazar MD, [facility] ([phone]), at 04/02/2024 5:05 PM OTHER Studies: 03/11 CT chest and 03/26 CT abdomen/pelvis w/ contrast. Pertinent findings: - A mass in the inferior head of the pancreas measures 7.8 x 4.9cm on coronal images and 7 x 4.9cm on axial images. Findings consistent with pancreatic malignancy. - Borderline splenomegaly 13.9cm. EGD/EUS 03/31 Impression: - Pancreas uncinate mass. Fine needle biopsy performed. On-site cytopathology read suggestive of malignancy. - Malignant duodenal obstruction. Uncovered duodenal stent successfully placed. Recommendation: - Await final cytology results. - Return to hospital lee. - OK for clear liquid diet. Advance to full liquid diet tomorrow if tolerating clears. - Check CA 19-9. Obtain non-contrast CT chest to complete staging. - Referral to Oncology and Surgical Oncology. Pathology (03/31/2024) DISCUSSION Pancreas: uncinate (EUS-guided FNA) - Adenocarcinoma. Block Antibody Result (Positive/Negative) A1 MLH1 Positive, intact nuclear staining MSH2 Positive, intact nuclear staining MSH6 Positive, intact nuclear staining PMS2 Positive, intact nuclear staining Interpretation: Immunostains for MLH1, MSH2, MSH6, and PMS2 reveal intact nuclear staining in tumor cells. Assessment and Plan: Mr. Dylan Michele is a 53 year old male with PMH significant for HFrEF (now recovered, last EF 60-65% in 04/2023) presenting with nausea, vomiting, poor PO intake, and recently identified pancreatic head mass on imaging. EGD/EUS done 03/31 shows pancreas uncinate mass. Fine needle biopsy performed. On-sitecytopathology read suggestive of malignancy. Malignant duodenal obstruction. Uncovered duodenal stent successfully placed. Pathology returned as pancreatic adenocarcinoma. Pt continues to try tolerating ensure but still not having good oral intake. Surg onc consulted for possible J tube before discharge #Nausea #Vomiting #Weight loss #Severe protein-calorie malnutrition #pancreatic adenocarcinomia #Hypokalemia #High risk for refeeding syndrome. - s/p NS 100cc/hr. - Zofran PO/IV for nausea. - Repleting K prn - Trend BMP, Ca, Mg. - Nutrition consult. - s/p endoscopy w/ biopsy. - full liquid diet, ADAT (low residue diet after SBFT is done) - surgical onc consulted for J tube placement #Alcohol use disorder #Prior tobacco use - BIT consult for help coping with serious illness, alcohol use disorder/smoking cessation resources. #FEN/PPx/Disposition Fluids: s/p 2L NS bolus Electrolytes: Ongoing K repletion Nutrition: Clears DVT PPx: lovenox QD. Disposition: pending clinical course. Code Status: full code. Anticipated Disposition:pending course Goals of Care: Team Pager( Coverage 25/05): #[phone] PCP: Cedric Rosenbaum, Attestation: IPI Certification I certify that I am a [facility] credentialed attending provider with admitting privileges and that the patient meets or has met medical necessity to require an inpatient IPI level of care meeting a minimumof two midnights or is on the [facility] inpatient only procedure list (status C) due to: Inability to tolerate POs, new diagnosis of pancreatic adenocarcinoma Emerson Ayala MD 04/04/2024 * Alexia Camejo, RD - 04/04/2024 9:36 AM EDT Nutrition Progress Note Dylan Michele is a 53 y.o. male with PMH significant for HFrEF (now recovered, last EF 60-65% in 04/2023) presenting with nausea, vomiting, poor PO intake, and recently identified pancreatic head mass on imaging. Procedures: 03/31: EGD/EUS done shows Pancreas uncinate mass. Fine needle biopsy performed. On-sitecytopathology read suggestive of malignancy. Malignant duodenal obstruction. Uncovered duodenal stent successfully placed. Reason for Assessment: Follow-up Nutrition Recommendations: Clear liquid diet Ensure Clear Continue daily multivitamin and 100mg thiamine for 7 days Inadequate nutrition x 7 days, recommend initiate nutrition support Mostly on clear liquids, no po intake documented while on full liquid or regular diet If starting enteral nutrition: (recommend starting at 10mL/hr and advancing by 10mL/hr q8-12hrs) Peptamen AF with a goal rate of 75 ml per hour At goal, this will provide: Peptamen AF Total Volume Per Day: 1800 mL Calories per Day: 2160 Protein per Day: 137 g Free Water mL per Day: 1462 % RDI: 144 % Mg and phos with daily labs - replenish prn Monitor BM Daily weights I was able to discuss plan with provider Medicine 2199 . Current Nutrition Regimen: Active Orders Diet Clear Liquid Frequency: Effective Now Number of Occurrences: Until Specified Nourishments Adult diet Oral Supplements Ensure Enlive Frequency: TID Number of Occurrences: Until Specified Assessment: Lab Results Component Value Date NA 140 04/04/2024 K 3.1 (L) 04/04/2024 CL 100 04/04/2024 CO2 31 04/04/2024 BUN 6 (L) 04/04/2024 CREATININE 0.55 (L) 04/04/2024 ESTGFR 120 04/04/2024 MAGNESIUM 0.69 04/03/2024 CALCIUM 8.5 04/04/2024 PHOS 2.7 04/03/2024 AST 14 04/02/2024 ALT 13 04/02/2024 ALKPHOS 94 04/02/2024 BILITOT 0.6 04/02/2024 HA1C 5.2 03/30/2024 No results found for: POCGLU Patient Lines/Drains/Airways Status Active Nutritional LDAs Name Placement date Placement time Site Days PIV 04/02/24 0950 20 gauge;1.75 in length cephalic vein (lateral side of arm), left 04/02/24 0950 -- 2 Oxygen Therapy / Airway Device: None (Room air) Shift Pressure Injury Prevention Occiput: No Injury Thoracic Spine: No Injury Sacral: No Injury Ischial - left: No Injury Ischial - right: No Injury Heel - left: No Injury Heel - right: No Injury Elbow - left: No Injury Elbow - right: No Injury Device Sites: no devices Last Bowel Movement: 04/03/24 Intake/Output Summary (Last 24 hours) at 04/04/2024 0936 Last data filed at 04/04/2024 0628 Gross per 24 hour Intake 578 ml Output 300 ml Net 278 ml Relevant medications: thera m, protonix, thiamine Anthropometrics: Admit Weight: 120.2 kg Estimated body mass index is 38.99 kg/m?? as calculated from the following: Height as of this encounter: 180.3 cm (5' 11). Weight as of this encounter: 126.8 kg (279 lb 8.7 oz). [place] Body Weight (IBW) (kg): 78.18 Usual Body Weight: ~345lbs in Sep 2023 (per patient) Weight Loss: unintentional Duration of Weight Loss: 6 Months Weight Lost: 75lbs % of Weight Lost: 21.7% Wt Readings from Last 10 Encounters: 04/04/24 126.8 kg (279 lb 8.7 oz) Patient Vitals for the past 168 hrs: Weight 04/04/24 0906 126.8 kg (279 lb 8.7 oz) 03/30/24 0020 122.9 kg (270 lb 15.1 oz) 03/29/24 1621 120.2 kg (265 lb) Weight Source: Standing Scale Estimated / Assessed Needs: Kcal / K - 2458 Kcal (16 Kcal/Kg - 20 Kcal/Kg) Estimated Protein Needs: 117 g - 156 g (1.5 g/Kg - 2.0 g/Kg IBW) Nutrition intake and intake history / interview: 04/04: Pt remains on clear liquids, per team will not be advancing diet further and pending Jtube placement. Per notes, intake of 2 Ensure clear, jello, and juice yesterday (630kcal, 16g protein). 04/01: Pt seen for follow up. He remains on a clear liquid diet and reports eating only a jello in the past 48 hrs, endorsing bloating and distention after eating it I feel like I just had my fourth plate of thanksgiving dinner. He is sipping on Powerade Zero, with only 1/2 bottle consumed since Thursday evening. Encouraged trial of Ensure clear for protein, pt agreeable. Per MD, GI is working to fix obstruction issue so holding off on nutrition support at this time. Pt hypokalemic, showing initial signs of refeeding syndrome. 03/30: Consulted for malnutrition eval and poor po intake. Pt NPO for EGD today. Dylan reports no n/v/abd pain although no po intake either. Reports since September 2023 feeling nauseous and bloated.Reports only tolerating sips of water and ~4oz of applesauce before feeling full. 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 Reports a ~80lbs unintentional weight loss with most of the weight loss occurring in the last 3 months as po intake worsened (UBW confirmed per [place] documentation). Addendum: Consulted for MST eval, see above assessment. Nutrition Focused Physical Exam: Performed (03/30/24) Subcutaneous Fat Loss Orbital region: None present Upper arm region (triceps/biceps): None present Thoracic and Lumbar regions (ribs, lower back, and maxillary line): Not assessed Lean Muscle Loss Catholic region (temporalis muscle): Mild Clavicle bone region (pectoralis major): Mild Dorsal hand (interosseous muscle): None present Shoulder (deltoid): Mild Scapular bone region (latissimus dorsi, trapezius muscles): Not assessed Thigh region (quadriceps muscle): Not assessed Posterior calf region (gastrocnemius muscle): None present Fluid Accumulation Fluid Accumulation: Not assessed Malnutrition Diagnosis: Identified: less than or equal to 75% of estimated energy requirement for greater than or equal to 1 month, greater than 10% weight loss in 6 months, and Mild Lean Muscle Loss is consistent with Severe protein-calorie malnutrition in the setting of chronic illness (Jeanne et al, JPEN J Parenteral Enteral Nutr. 2011; 36(3): 273-83) Nutrition to continue to follow up while inpatient Thank you, Alexia Camejo, MS, RD, LD, [facility] Clinical Nutrition * Panchito Ahuja RN - 04/04/2024 7:01 AM EDT Illness Severity [x] Stable [] Watcher [] Unstable Patient Summary Reason for admission: Nausea & Vomiting. New pancreatic mass. Relevant PMH: Obesity, IN, ETOH use, Smoker, CHF, Hep. C. Significant weight loss 86lbs since September 2023. Poor PO intake for the last 5 weeks. Quit drinking & smoking 5 weeks ago. 03/31 Pancreatic head mass biopsy, stent to duodenum Significant 24 hour events: 04/03 PM Patient AOx4 this shift. VSS. Patient still with severe edema noted to BLE. Patient ambulated around unit and tolerated PO intake well, however still complains of fullness after consuming fluids. 6/ AM: Pt A/Ox4; VSS on RA. Pt had a better day today. He has been able to take in 2 ensure clears, jello and cranberry juice. Pt also able to take meds and keep them down today. No complaints of pain or nausea, continues to complain of bloating but less today than yesterday. Family at bedside fora visit. Pt up in hallway x3 this shift. Resting between nursing cares. 04/02 PM AOx4. VSS. Patient continues to complain of abdominal pain and made request for pain medication. MD notified, however no meds ordered. Patient encouraged to ambulate and gradually increase oral intake as tolerated. 04/02 AM: Pt A/Ox4; VSS on RA. Pt continues to state he feels full and unable to drink or eat anything. Pt was unable to take 40 MEQ of KCL today, changed to 30 Meq IV KCL. Pt unable to tolerate full infusion and was ultimately stopped 30 minutes shy of completing 3rd bag, recheck at 1600 level came back at 3.1; pt took 40 oral KCL dissolved in ensure clear. IVF d/c'd due to 3+ pitting edema in hislower legs. Pt rested between nursing care. 04/01 AM Efrain continues to endorse feeling full all the time. He is taking minimal po clear liquids.Xray of abd with contrast ordered, to able to drink contrast and will go this evening. Pt continuesto have LE edema. IVF .9NS @100cc/hr infusing as ordered. 3 runs K+ replacement given today for K+ 2.8.Pt reports liquid BM x2, abd soft. Chemo plan & supportive medication: Baseline Weight: 122.9 kg (with shoes) Most recent weight: Weight: 122.9 kg (270 lb 15.1 oz) (With shoes) (03/30/24 0020) Neuro: WDL Neuro Checks: (See below) CV: WDL tachy int. Telemetry: No Neurovasc: .WDL except, edema, neurovascular assessment lower BUE/BLE N/T +, edema left ankle/foot VTE Prophylaxis: anticoagulant therapy (lovenox) lovenox Pulmonary: WDL clr/dim O2 Device: None (Room air) 2L pm GI: .WDL except, GI symptoms, appearance/characteristics LBM: 04/03/24 Fingerstick order: No : WDL unable to void, decreased urinary output Musculoskeletal: .WDL except, mobility generalized weakness Pain/Location: 2 (04/03/24 0803) / abdomen (04/03/24 0239) Mobility Plan: SBA Bed alarm sensitivity: Medium Skin: .WDL except, characteristics intact. BLE blotchy/dusky cool. Gout - Left great toe. 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 PMH There are no active non-hospital problems to display for this patient. Inpatient Medications: Scheduled pantoprazole EC 40 mg Oral Daily magnesium sulfate 2 g Intravenous Once carvediloL 6.25 mg Oral BID WC multivitamin with minerals 1 tablet Oral Daily thiamine 100 mg Oral Daily sodium chloride 0.9 % (flush) 5 mL Intravenous BID enoxaparin 40 mg Subcutaneous Nightly Continuous infusions: PRN: simethicone, alum-mag hydroxide-simeth, sodium chloride 0.9 % (flush), lidocaine, melatonin, ondansetron ODT OR ondansetron Interval History: - No acute events overnight - Reports drinking one ensure clears yesterday - Continues to complain of feet pain due to swelling - Interested in eating and feels hungry and thirsty but feels uncomfortable after eating Physical Exam Vitals Range last 24 hrs Temperature Temp: [36.4 ??C (97.5 ??F)-36.6 ??C (97.9 ??F)] Heart Rate Heart Rate: -- Blood Pressure BP: (107-121)/(66-76) Respiratory Rate Resp: [16-19] SpO2 SpO2: [97 %-99 %] Intake/Output Summary (Last 24 hours) at 04/03/2024 1049 Last data filed at 04/03/2024 0800 Gross per 24 hour Intake 576 ml Output 50 ml Net 526 ml Patient Vitals for the past 168 hrs: Weight 03/30/24 0020 122.9 kg (270 lb 15.1 oz) 03/29/24 1621 120.2 kg (265 lb) Body mass index is 37.79 kg/m??. Physical Exam General: chronically ill-appearing male. HEENT: Anicteric sclerae, normal conjunctivae. Dry mucous membranes Neck: Neck veins flat. No tracheal deviation Cor: Normal rate, regular rhythm; S1/S2; no murmurs or rubs appreciated Lungs: Breathing non-labored. Clear to auscultation Abdomen: Soft, non-distended. Mild tenderness to palpation in epigastric region. Normal bowel sounds Extremities: Warm, well perfused. 1+ pitting edema. 2+ peripheral pulses Neurologic: Alert, oriented, cooperative Skin: No rashes or lesions appreciated Studies reviewed in eDH. Remarkable for the following: LABS: Last 3 wbc, hgb, hct plt Recent Labs 04/03/24 0815 04/02/24 0328 04/01/24 0451 WBC 8.4 8.5 7.9 HGB 13.6* 13.6* 13.8 HCT 42.8 41.1 42.7 PLATELET 245 244 281 Last 3 Lytes Recent Labs 04/03/24 0815 04/02/24 1605 04/02/24 0328 NA 143 141 142 K 3.4* 3.1* 2.7* CL 101 101 102 CO2 33* 29 30 BUN 6* 6* 7* CREATININE 0.55* 0.47* 0.44* Last 3 LFTs Recent Labs 04/02/24 0328 04/01/24 0451 03/31/24 0409 AST 14 18 15 ALT 13 13 11 ALKPHOS 94 100 104 BILITOT 0.6 0.8 0.6 FSBG Trend No results for input(s): POCGLU in the last 72 hours. MICRO: No results for input(s): URINECULTURE in the last 720 hours. No results for input(s): GRAMSTAIN, BFCX, LOWERRESPCX, TISSUECX in the last 720 hours. No results for input(s): BLOODCX in the last 720 hours. ECG: No results for input(s): DIAGLINE, QTCCALC in the last 720 hours. VASCULAR: No results for input(s): VBTEXTRPT in the last 720 hours. IMAGING: Results for orders placed or performed during the hospital encounter of 05/28/24 XR Chest One View (Exam End: 03/29/2024 9:34 PM) Result Value WORKSTATION ID [id number] Impression No acute finding. Preliminary report signed by: Dominic Healy MD at 03/29/2024 9:38 PM I have personally reviewed the image(s) and the resident's interpretation and agree with the findings, Kelsie Goodman MD at 03/29/2024 10:36 PM Thank you for letting us participate in the care of this patient. If you are a health care provider and have any questions regarding this report, please contact the number below. For patients who have questions please contact the health intensive care unit registered nurse that requested your imaging first. Electronically signed by: Kelsie Goodman MD, [facility] ([phone]), at 03/29/2024 10:[address] Chest wo Contrast (Generic) (Exam End: 03/31/2024 5:35 PM) Result Value WORKSTATION ID [id number] Impression No evidence for intrathoracic metastasis Thank you for letting us participate in the care of this patient. If you are a health care provider and have any questions regarding this report, please contact the number below. For patients who have questions please contact the health intensive care unit registered nurse that requested your imaging first. Request For 2nd Read CT Abdomen & Pelvis (Exam End: 03/31/2024 5:05 PM) Result Value WORKSTATION ID [id number] Impression 1. Increased size of the primary pancreatic neoplasm with vascular encasement/abutment, as above, as well as contact with the duodenum. 2. No lymphadenopathy or metastatic disease. Thank you for letting us participate in the care of this patient. If you are a health care provider and have any questions regarding this report, please contact the number below. For patients who have questions please contact the health intensive care unit registered nurse that requested your imaging first. Electronically signed by: CHRYSTAL RODRIGUEZ MD, [facility] ([phone]), at 04/01/2024 8:51 AM XR Abdomen 1 view Contrast Challenge (Exam End: 04/01/2024 4:58 PM) Result Value WORKSTATION ID [id number] Impression No radiographic evidence of obstruction. Paucity of small bowel gas. Oral contrast scattered throughout the large bowel and rectum. Thank you for letting us participate in the care of this patient. If you are a health care provider and have any questions regarding this report, please contact the number below. For patients who have questions please contact the health intensive care unit registered nurse that requested your imaging first. Electronically signed by: Paul Rodriguez DO, [facility] ([phone]), at 04/01/2024 5:12 PM XR Abdomen 1 view Contrast Challenge (Exam End: 04/01/2024 11:15 PM) Result Value WORKSTATION ID [id number] Impression No small bowel obstruction. Enteric contrast column within the nondilated descending and sigmoid colon. Thank you for letting us participate in the care of this patient. If you are a health care provider and have any questions regarding this report, please contact the number below. For patients who have questions please contact the health intensive care unit registered nurse that requested your imaging first. Electronically signed by: Evelin Mendez MD, [facility] ([phone]), at 04/02/2024 8:44 AM XR Abdomen 1 view Contrast Challenge (Exam End: 04/02/2024 5:37 AM) Result Value WORKSTATION ID [id number] Impression No small bowel obstruction. Enteric contrast column within the nondilated descending and sigmoid colon. Thank you for letting us participate in the care of this patient. If you are a health care provider and have any questions regarding this report, please contact the number below. For patients who have questions please contact the health intensive care unit registered nurse that requested your imaging first. Electronically signed by: Evelin Mendez MD, [facility] ([phone]), at 04/02/2024 8:44 AM XR Abdomen 1 view Contrast Challenge (Exam End: 04/02/2024 10:54 AM) Result Value WORKSTATION ID [id number] Impression Nonobstructive bowel gas pattern. Minimal residual contrast remains in the descending and rectosigmoid colon. Thank you for letting us participate in the care of this patient. If you are a health care provider and have any questions regarding this report, please contact the number below. For patients who have questions please contact the health intensive care unit registered nurse that requested your imaging first. R Studies: 03/11 CT chest and 03/26 CT abdomen/pelvis w/ contrast. Pertinent findings: - A mass in the inferior head of the pancreas measures 7.8 x 4.9cm on coronal images and 7 x 4.9cm on axial images. Findings consistent with pancreatic malignancy. - Borderline splenomegaly 13.9cm. EGD/EUS 03/31 Impression: - Pancreas uncinate mass. Fine needle biopsy performed. On-site cytopathology read suggestive of malignancy. - Malignant duodenal obstruction. Uncovered duodenal stent successfully placed. Recommendation: - Await final cytology results. - Return to hospital [facility]. - OK for clear liquid diet. Advance to full liquid diet tomorrow if tolerating clears. - Check CA 19-9. Obtain non-contrast CT chest to complete staging. - Referral to Oncology and Surgical Oncology. Pathology (03/31/2024) DISCUSSION Pancreas: uncinate (EUS-guided FNA) - Adenocarcinoma. Block Antibody Result (Positive/Negative) A1 MLH1 Positive, intact nuclear staining MSH2 Positive, intact nuclear staining MSH6 Positive, intact nuclear staining PMS2 Positive, intact nuclear staining Interpretation: Immunostains for MLH1, MSH2, MSH6, and PMS2 reveal intact nuclear staining in tumor cells. Assessment and Plan: Mr. Dylan Michele is a 53 year old male with PMH significant for HFrEF (now recovered, last EF 60-65% in 04/2023) presenting with nausea, vomiting, poor PO intake, and recently identified pancreatic head mass on imaging. EGD/EUS done 03/31 shows pancreas uncinate mass. Fine needle biopsy performed. On-sitecytopathology read suggestive of malignancy. Malignant duodenal obstruction. Uncovered duodenal stent successfully placed. Pathology returned as pancreatic adenocarcinoma. I discussed with patient that he should continue to try to sip on ensure clear in order to get enough calories and nutrition. Other options include PEG placement versus TPN. Patient reports that he will try to continue to sip on ensures because he enjoys the taste. #Nausea #Vomiting #Weight loss #Severe protein-calorie malnutrition #Pancreatic mass likely pancreatic cancer #Hypokalemia #High risk for refeeding syndrome. - Stop NS 100cc/hr. - Zofran PO/IV for nausea. - Repleting K prn - Trend BMP, Ca, Mg. - Nutrition consult. - s/p endoscopy w/ biopsy. - clear liquid diet, ADAT (low residue diet after SBFT is done) - Oncology and surgical onc consulted advised outpatient follow up #Alcohol use disorder #Prior tobacco use - BIT consult for help coping with serious illness, alcohol use disorder/smoking cessation resources. #FEN/PPx/Disposition Fluids: s/p 2L NS bolus Electrolytes: Ongoing K repletion Nutrition: Clears DVT PPx: lovenox QD. Disposition: pending clinical course. Code Status: full code. Anticipated Disposition:pending course Goals of Care: Team Pager(MD Coverage 25/05): #[phone] PCP: Cedric Rosenbaum, Attestation: IPI Certification I certify that I am a D-H credentialed attending provider with admitting privileges and that the patient meets or has met medical necessity to require an inpatient IPI level of care meeting a minimumof two midnights or is on the [facility] inpatient only procedure list (status C) due to: Inability to tolerate POs, new diagnosis of pancreatic adenocarcinoma Kay Robbins MD 04/03/2024 * Kay Robbins MD - 04/02/2024 3:52 PM EDT Hospital Medicine Attending Daily Progress Note Admit Date: 03/29/2024 Hospital Day 4 days Active Hospital Problems Diagnosis Nausea & vomiting Resolved Hospital Problems No resolved problems to display. PMH There are no active non-hospital problems to display for this patient. Inpatient Medications: Scheduled carvediloL 6.25 mg Oral BID WC multivitamin with minerals 1 tablet Oral Daily thiamine 100 mg Oral Daily sodium chloride 0.9 % (flush) 5 mL Intravenous BID enoxaparin 40 mg Subcutaneous Nightly Continuous infusions: lactated Ringers 75 mL/hr (04/02/24 1337) PRN: simethicone, alum-mag hydroxide-simeth, sodium chloride 0.9 % (flush), lidocaine, melatonin, ondansetron ODT OR ondansetron Interval History: - No acute events overnight - Reports drinking chelsy roseann and ensure clears and feeling very bloated. Interested in eating and feels hungry but feels uncomfortable after eating Physical Exam Vitals Range last 24 hrs Temperature Temp: [36.2 ??C (97.2 ??F)-36.6 ??C (97.9 ??F)] Heart Rate Heart Rate: -- Blood Pressure BP: (101-134)/(57-87) Respiratory Rate Resp: [16-18] SpO2 SpO2: [90 %-100 %] Intake/Output Summary (Last 24 hours) at 04/02/2024 1552 Last data filed at 04/02/2024 1337 Gross per 24 hour Intake 2095 ml Output -- Net 2095 ml Patient Vitals for the past 168 hrs: Weight 03/30/24 0020 122.9 kg (270 lb 15.1 oz) 03/29/24 1621 120.2 kg (265 lb) Body mass index is 37.79 kg/m??. Physical Exam General: chronically ill-appearing male. HEENT: Anicteric sclerae, normal conjunctivae. Dry mucous membranes Neck: Neck veins flat. No tracheal deviation Cor: Normal rate, regular rhythm; S1/S2; no murmurs or rubs appreciated Lungs: Breathing non-labored. Clear to auscultation Abdomen: Soft, non-distended. Mild tenderness to palpation in epigastric region. Normal bowel sounds Extremities: Warm, well perfused. 1+ pitting edema. 2+ peripheral pulses Neurologic: Alert, oriented, cooperative Skin: No rashes or lesions appreciated Studies reviewed in eDH. Remarkable for the following: LABS: Last 3 wbc, hgb, hct plt Recent Labs 04/02/2432704/01/24 0451 03/31/24 0409 WBC 8.5 7.9 6.4 HGB 13.6* 13.8 14.3 HCT 41.1 42.7 42.7 PLATELET 244 281 263 Last 3 Lytes Recent Labs 04/02/2432704/01/24 1607 04/01/24 0451 NA 142 146* 143 K 2.7* 3.6 2.8* CL 102 101 99 CO2 30 31 30 BUN 7* 7* 6* CREATININE 0.44* 0.56* 0.57* Last 3 LFTs Recent Labs 04/02/24327 04/01/24 0451 03/31/24 0409 AST 14 18 15 ALT 13 13 11 ALKPHOS 94 100 104 BILITOT 0.6 0.8 0.6 FSBG Trend No results for input(s): POCGLU in the last 72 hours. MICRO: No results for input(s): URINECULTURE in the last 720 hours. No results for input(s): GRAMSTAIN, BFCX, LOWERRESPCX, TISSUECX in the last 720 hours. No results for input(s): BLOODCX in the last 720 hours. ECG: No results for input(s): DIAGLINE, QTCCALC in the last 720 hours. VASCULAR: No results for input(s): VBTEXTRPT in the last 720 hours. IMAGING: Results for orders placed or performed during the hospital encounter of 03/29/24 XR Chest One View (Exam End: 03/29/2024 9:34 PM) Result Value WORKSTATION ID [id number] Impression No acute finding. Preliminary report signed by: Dominic Healy MD at 03/29/2024 9:38 PM I have personally reviewed the image(s) and the resident's interpretation and agree with the findings, Kelsie Goodman MD at 03/29/2024 10:36 PM Thank you for letting us participate in the care of this patient. If you are a health care provider and have any questions regarding this report, please contact the number below. For patients who have questions please contact the health intensive care unit registered nurse that requested your imaging first. Electronically signed by: Kelsie Goodman MD, [facility] ([phone]), at 03/29/2024 10:[address] Chest wo Contrast (Generic) (Exam End: 03/31/2024 5:35 PM) Result Value WORKSTATION ID [id number] Impression No evidence for intrathoracic metastasis Thank you for letting us participate in the care of this patient. If you are a health care provider and have any questions regarding this report, please contact the number below. For patients who have questions please contact the health intensive care unit registered nurse that requested your imaging first. Request For 2nd Read CT Abdomen & Pelvis (Exam End: 03/31/2024 5:05 PM) Result Value WORKSTATION ID [id number] Impression 1. Increased size of the primary pancreatic neoplasm with vascular encasement/abutment, as above, as well as contact with the duodenum. 2. No lymphadenopathy or metastatic disease. Thank you for letting us participate in the care of this patient. If you are a health care provider and have any questions regarding this report, please contact the number below. For patients who have questions please contact the health intensive care unit registered nurse that requested your imaging first. Electronically signed by: CHRYSTAL RODRIGUEZ MD, [facility] ([phone]), at 04/01/2024 8:51 AM XR Abdomen 1 view Contrast Challenge (Exam End: 04/01/2024 4:58 PM) Result Value WORKSTATION ID [id number] Impression No radiographic evidence of obstruction. Paucity of small bowel gas. Oral contrast scattered throughout the large bowel and rectum. Thank you for letting us participate in the care of this patient. If you are a health care provider and have any questions regarding this report, please contact the number below. For patients who have questions please contact the health intensive care unit registered nurse that requested your imaging first. Electronically signed by: Paul Rodriguez DO, [facility] ([phone]), at 04/01/2024 5:12 PM XR Abdomen 1 view Contrast Challenge (Exam End: 04/01/2024 11:15 PM) Result Value WORKSTATION ID [id number] Impression No small bowel obstruction. Enteric contrast column within the nondilated descending and sigmoid colon. Thank you for letting us participate in the care of this patient. If you are a health care provider and have any questions regarding this report, please contact the number below. For patients who have questions please contact the health intensive care unit registered nurse that requested your imaging first. Electronically signed by: Evelin Mendez MD, [facility] ([phone]), at 04/02/2024 8:44 AM XR Abdomen 1 view Contrast Challenge (Exam End: 04/02/2024 5:37 AM) Result Value WORKSTATION ID [id number] Impression No small bowel obstruction. Enteric contrast column within the nondilated descending and sigmoid colon. Thank you for letting us participate in the care of this patient. If you are a health care provider and have any questions regarding this report, please contact the number below. For patients who have questions please contact the health intensive care unit registered nurse that requested your imaging first. Electronically signed by: Evelin Mendez MD, [facility] ([phone]), at 04/02/2024 8:44 AM OTHER Studies: 03/11 CT chest and 03/26 CT abdomen/pelvis w/ contrast. Pertinent findings: - A mass in the inferior head of the pancreas measures 7.8 x 4.9cm on coronal images and 7 x 4.9cm on axial images. Findings consistent with pancreatic malignancy. - Borderline splenomegaly 13.9cm. EGD/EUS 03/31 Impression: - Pancreas uncinate mass. Fine needle biopsy performed. On-site cytopathology read suggestive of malignancy. - Malignant duodenal obstruction. Uncovered duodenal stent successfully placed. Recommendation: - Await final cytology results. - Return to hospital [facility]. - OK for clear liquid diet. Advance to full liquid diet tomorrow if tolerating clears. - Check CA 19-9. Obtain non-contrast CT chest to complete staging. - Referral to Oncology and Surgical Oncology. Assessment and Plan: Mr. Dylan Michele is a 53 year old male with PMH significant for HFrEF (now recovered, last EF 60-65% in 04/2023) presenting with nausea, vomiting, poor PO intake, and recently identified pancreatic head mass on imaging. EGD/EUS done 03/31 shows Pancreas uncinate mass. Fine needle biopsy performed. On-sitecytopathology read suggestive of malignancy. Malignant duodenal obstruction. Uncovered duodenal stent successfully placed. Today, he continues to have similar symptomsof early satiety and only able to tolerate small amount of liquid despite duodenal stent placement.Small bowel follow-through demonstrated patent stent. His symptoms are likely due to ongoing malignancy rather than true obstruction. Unfortunately, continues to feel unable to take POs #Nausea #Vomiting #Weight loss #Severe protein-calorie malnutrition #Pancreatic mass likely pancreatic cancer #Hypokalemia #High risk for refeeding syndrome. - Stop NS 100cc/hr. - Zofran PO/IV for nausea. - Repleting K prn - Trend BMP, Ca, Mg. - Nutrition consult. - s/p endoscopy w/ biopsy. - clear liquid diet, ADAT (low residue diet after SBFT is done) - Oncology and surgical onc consulted advised outpatient follow up #Alcohol use disorder #Prior tobacco use - BIT consult for help coping with serious illness, alcohol use disorder/smoking cessation resources. #FEN/PPx/Disposition Fluids: s/p 2L NS bolus Electrolytes: Ongoing K repletion Nutrition: Clears DVT PPx: lovenox QD. Disposition: pending clinical course. Code Status: full code. Anticipated Disposition:pending course Goals of Care: Team Pager(MD Coverage 25/05): #[phone] PCP: Cedric Rosenbaum, Attestation: IPI Certification I certify that I am a D-H credentialed attending provider with admitting privileges and that the patient meets or has met medical necessity to require an inpatient IPI level of care meeting a minimumof two midnights or is on the [facility] inpatient only procedure list (status C) due to: Inability to tolerate POs, new diagnosis of pancreatic adenocarcinoma Kay Robbins MD 04/02/2024 * Panchito Ahuja RN - 04/02/2024 4:22 AM EDT Illness Severity [x] Stable [] Watcher [] Unstable Patient Summary Reason for admission: Nausea & Vomiting. New pancreatic mass. Relevant PMH: Obesity, IN, ETOH use, Smoker, CHF, Hep. C. Significant weight loss 86lbs since September 2023. Poor PO intake for the last 5 weeks. Quit drinking & smoking 5 weeks ago. Significant 24 hour events: 04/01 PM Patient continues to complain of abdominal fullest and intermittent cramping to abdomen this shift. Denies n/v. Able to consume ensure and and approximately 600ml of chelsy roseann, however continues to c/o abdominal discomfort after doing so. Patient also transported to [facility] to have follow up study done. K+ 2.7 this a.m. paged for orders. 03/31 Pancreatic head mass biopsy, stent to duodenum 03/31 Patient AOx4 this shift, VSS. Generalized edema noted to BLE, which patient believes is related to IV fluids being infused. No complaints of n/v, however still endorses abdominal fullness.Also complains of left knee pain. 04/01 AM Efrain continues to endorse feeling full all the time. He is taking minimal po clear liquids.Xray of abd with contrast ordered, to able to drink contrast and will go this evening. Pt continuesto have LE edema. IVF .9NS @100cc/hr infusing as ordered. 3 runs K+ replacement given today for K+ 2.8.Pt reports liquid BM x2, abd soft. Chemo plan & supportive medication: Baseline Weight: 122.9 kg (with shoes) Most recent weight: Weight: 122.9 kg (270 lb 15.1 oz) (With shoes) (03/30/24 0020) Neuro: WDL Neuro Checks: (See below) CV: .WDL except, rhythm tachy int. Telemetry: No Neurovasc: .WDL except, neurovascular assessment upper, neurovascular assessment lower, edema BUE/BLE N/T +, edema left ankle/foot VTE Prophylaxis: anticoagulant therapy lovenox Pulmonary: .WDL except, breath sounds clr/dim O2 Device: Nasal cannula 2L pm GI: .WDL except, appearance/characteristics, GI symptoms, bowel sounds, palpation, nausea and vomiting LBM: 03/30/24 Fingerstick order: No : .WDL except, voiding ability/characteristics unable to void, decreased urinary output Musculoskeletal: .WDL except, mobility generalized weakness Pain/Location: 0 (03/30/24 0026) / Mobility Plan: SBA Bed alarm sensitivity: Medium Skin: .WDL except, all intact. BLE blotchy/dusky cool. Gout - Left great toe. Psych/Social: sister Action List Full liquid diet Nausea control Electrolyte replacement Discharge Plan: pending Consults: Gastroenterology PT [] OT [] SOFTWARE WRITER [] Last Flu vaccine: Last Covid Test Result: Situational Awareness & Contingency Planning Lives with 2 roommates Synthesis (Verbal Only) (Brief summary, ask questions, restate lara action/to do items) * Emerson Ayala MD - 04/01/2024 1:44 PM EDT Hospital Medicine Attending Daily Progress Note Admit Date: 03/29/2024 Hospital Day 3 days Active Hospital Problems Diagnosis Nausea & vomiting Resolved Hospital Problems No resolved problems to display. PMH There are no active non-hospital problems to display for this patient. Inpatient Medications: Scheduled potassium chloride 10 mEq Intravenous Q2H carvediloL 6.25 mg Oral BID WC multivitamin with minerals 1 tablet Oral Daily thiamine 100 mg Oral Daily sodium chloride 0.9 % (flush) 5 mL Intravenous BID enoxaparin 40 mg Subcutaneous Nightly Continuous infusions: sodium chloride 0.9% 100 mL/hr (04/01/24 0838) PRN: simethicone, alum-mag hydroxide-simeth, sodium chloride 0.9 % (flush), lidocaine, melatonin, ondansetron ODT OR ondansetron Interval History: Pt seen and examined. Continued on iv fluids. He is still feeling bloating and difficulty eating. CA 19-9 elevated. GI team advised small bowel follow through to assess bowel and stent patency. ROS: as noted above Physical Exam Vitals Range last 24 hrs Temperature Temp: [36.3 ??C (97.3 ??F)-36.9 ??C (98.4 ??F)] Heart Rate Heart Rate: [76] Blood Pressure BP: (113-141)/(64-93) Respiratory Rate Resp: [16-19] SpO2 SpO2: [92 %-100 %] Intake/Output Summary (Last 24 hours) at 04/01/2024 1344 Last data filed at 04/01/2024 1200 Gross per 24 hour Intake 100 ml Output 200 ml Net -100 ml Patient Vitals for the past 168 hrs: Weight 03/30/24 0020 122.9 kg (270 lb 15.1 oz) 03/29/24 1621 120.2 kg (265 lb) Body mass index is 37.79 kg/m??. Physical Exam General: chronically ill-appearing male. HEENT: Anicteric sclerae, normal conjunctivae. Dry mucous membranes Neck: Neck veins flat. No tracheal deviation Cor: Normal rate, regular rhythm; S1/S2; no murmurs or rubs appreciated Lungs: Breathing non-labored. Clear to auscultation Abdomen: Soft, non-distended. Mild tenderness to palpation in epigastric region. Normal bowel sounds Extremities: Warm, well perfused. No pitting edema. 2+ peripheral pulses Neurologic: Alert, oriented, cooperative Skin: No rashes or lesions appreciated Studies reviewed in eDH. Remarkable for the following: LABS: Last 3 wbc, hgb, hct plt Recent Labs 04/01/24 0451 03/31/24 0409 03/30/24 0410 WBC 7.9 6.4 6.4 HGB 13.8 14.3 14.5 HCT 42.7 42.7 42.9 PLATELET 281 263 286 Last 3 Lytes Recent Labs 04/01/24 0451 03/31/24 0409 03/30/24 0410 NA 143 143 145 K 2.8* 3.1* 3.5 CL 99 98 98 CO2 30 34* 38* BUN 6* 6* 5* CREATININE 0.57* 0.58* 0.59* Last 3 LFTs Recent Labs 04/01/24 04503/31/24 04003/29/24 1632 AST 18 15 20 ALT 13 11 15 ALKPHOS 100 104 129 BILITOT 0.8 0.6 0.9 FSBG Trend No results for input(s): POCGLU in the last 72 hours. MICRO: No results for input(s): URINECULTURE in the last 720 hours. No results for input(s): GRAMSTAIN, BFCX, LOWERRESPCX, TISSUECX in the last 720 hours. No results for input(s): BLOODCX in the last 720 hours. ECG: No results for input(s): DIAGLINE, QTCCALC in the last 720 hours. VASCULAR: No results for input(s): VBTEXTRPT in the last 720 hours. IMAGING: Results for orders placed or performed during the hospital encounter of 03/29/24 XR Chest One View (Exam End: 03/29/2024 9:34 PM) Result Value WORKSTATION ID [id number] Impression No acute finding. Preliminary report signed by: Dominic Healy MD at 03/29/2024 9:38 PM I have personally reviewed the image(s) and the resident's interpretation and agree with the findings, Kelsie Goodman MD at 03/29/2024 10:36 PM Thank you for letting us participate in the care of this patient. If you are a health care provider and have any questions regarding this report, please contact the number below. For patients who have questions please contact the health intensive care unit registered nurse that requested your imaging first. Electronically signed by: Kelsie Goodman MD, [facility] ([phone]), at 03/29/2024 10:[address] Chest wo Contrast (Generic) (Exam End: 03/31/2024 5:35 PM) Result Value WORKSTATION ID [id number] Impression No evidence for intrathoracic metastasis Thank you for letting us participate in the care of this patient. If you are a health care provider and have any questions regarding this report, please contact the number below. For patients who have questions please contact the health intensive care unit registered nurse that requested your imaging first. Request For 2nd Read CT Abdomen & Pelvis (Exam End: 03/31/2024 5:05 PM) Result Value WORKSTATION ID [id number] Impression 1. Increased size of the primary pancreatic neoplasm with vascular encasement/abutment, as above, as well as contact with the duodenum. 2. No lymphadenopathy or metastatic disease. Thank you for letting us participate in the care of this patient. If you are a health care provider and have any questions regarding this report, please contact the number below. For patients who have questions please contact the health intensive care unit registered nurse that requested your imaging first. Electronically signed by: CHRYSTAL RODRIGUEZ MD, [facility] ([phone]), at 04/01/2024 8:51 AM OTHER Studies: 03/11 CT chest and 03/26 CT abdomen/pelvis w/ contrast. Pertinent findings: - A mass in the inferior head of the pancreas measures 7.8 x 4.9cm on coronal images and 7 x 4.9cm on axial images. Findings consistent with pancreatic malignancy. - Borderline splenomegaly 13.9cm. EGD/EUS 03/31 Impression: - Pancreas uncinate mass. Fine needle biopsy performed. On-site cytopathology read suggestive of malignancy. - Malignant duodenal obstruction. Uncovered duodenal stent successfully placed. Recommendation: - Await final cytology results. - Return to hospital lee. - OK for clear liquid diet. Advance to full liquid diet tomorrow if tolerating clears. - Check CA 19-9. Obtain non-contrast CT chest to complete staging. - Referral to Oncology and Surgical Oncology. Assessment and Plan: Mr. Dylan Micheel is a 53 year old male with PMH significant for HFrEF (now recovered, last EF 60-65% in 04/2023) presenting with nausea, vomiting, poor PO intake, and recently identified pancreatic head mass on imaging. EGD/EUS done 03/31 shows Pancreas uncinate mass. Fine needle biopsy performed. On-sitecytopathology read suggestive of malignancy. Malignant duodenal obstruction. Uncovered duodenal stent successfully placed. Today, he continues to have similar symptomsof early satiety and only able to tolerate small amount of liquid despite duodenal stent placement.GI team recommended obtaining a small bowel follow-through to evaluate for stent patency.His symptoms are likely due to ongoing malignancy rather than true obstruction. Would also start him on simethicone and Maalox. #Nausea #Vomiting #Weight loss #Severe protein-calorie malnutrition #Pancreatic mass likely pancreatic cancer #Hypokalemia #High risk for refeeding syndrome. - Continue NS 100cc/hr. - Zofran PO/IV for nausea. - Repleting K prn - Trend BMP, Ca, Mg. - Nutrition consult. - s/p endoscopy w/ biopsy. - clear liquid diet, ADAT (low residue diet after SBFT is done) -oncology and surgical onc consulted advised outpatient follow up #Alcohol use disorder #Prior tobacco use - BIT consult for help coping with serious illness, alcohol use disorder/smoking cessation resources. #FEN/PPx/Disposition Fluids: s/p 2L NS bolus, continue iv fluids Electrolytes: ongoing K repletion. Nutrition: DVT PPx: lovenox QD. Disposition: pending clinical course. Code Status: full code. Anticipated Disposition:pending course Goals of Care: Team Pager( Coverage 25/05): #[phone] PCP: Cedric Roesnbaum DO [phone] Attestation: IPI Certification I certify that I am a D-H credentialed attending provider with admitting privileges and that the patient meets or has met medical necessity to require an inpatient IPI level of care meeting a minimumof two midnights or is on the [facility] inpatient only procedure list (status C) due to: pancreatic cancer. Emerson Ayala MD 04/01/2024 * Yaima Vick MD - 04/01/2024 7:23 AM EDT GASTROENTEROLOGY & HEPATOLOGY CONSULTATION INPATIENT PROGRESS NOTE ID: Dylan Michele is a 53 y.o. male with PMH significant for HFrEF (last EF 60- 65% in 04/2023) and AUD who presents with nausea, vomiting, poor PO intake. GIs been consulted for abnormal pancreas imaging on CT. Interval History: -Patient underwent EUS yesterday demonstrated pancreas uncinate mass s/p fine- needle biopsy with onsite cytopathology read suggestive of malignancy. Also evidence of malignant duodenal obstruction and an uncovered duodenal stent was successfully placed. -Patient ordered for CT chest for staging -- negative for metastatic disease -CA 19-9 193 - HD stable, afebrile -Patient reporting ongoing bloating and early satiety, states he wants to be able to tolerate a fewsips of Powerade Active Hospital Problem List Patient Active Problem List Diagnosis Code Nausea & vomiting R11.2 Scheduled Meds: carvediloL 6.25 mg Oral BID WC multivitamin with minerals 1 tablet Oral Daily thiamine 100 mg Oral Daily sodium chloride 0.9 % (flush) 5 mL Intravenous BID enoxaparin 40 mg Subcutaneous Nightly Continuous Infusions: sodium chloride 0.9% 100 mL/hr (03/31/24 2300) PRN Meds:.sodium chloride 0.9 % (flush), lidocaine, melatonin, ondansetron ODT OR ondansetron Physical Examination Vitals: 03/31/24 1609 03/31/24 1935 04/01/24 0009 04/01/24 0402 BP: (!) 138/93 (!) 133/93 113/64 (!) 141/91 BP Location (NBP): Left arm Left arm Left arm Left arm Patient Position: Sitting Sitting Lying Sitting Pulse: Resp: Temp: 36.3 ??C (97.3 ??F) 36.7 ??C (98.1 ??F) 36.5 ??C (97.7 ??F) 36.9 ??C (98.4 ??F) TempSrc: Oral Oral Axillary Oral SpO2: 100% 100% 97% 100% Weight: Height: PHYSICAL EXAM GENERAL: No acute distress, alert and oriented HEENT: AT/NC, sclerae anicteric, moist mucous membranes ABDOMEN: Soft, normoactive bowel sounds, non-tender, non-distended EXT: Warm, no edema SKIN: No jaundice Pertinent Recent labs CBC Lab Results Component Value Date WBC 7.9 04/01/2024 Hemoglobin 13.8 04/01/2024 Hematocrit 42.7 04/01/2024 Platelets 281 04/01/2024 Lab Results Component Value Date Sodium 143 04/01/2024 Potassium 2.8 (CRIT) 04/01/2024 Chloride 99 04/01/2024 CO2 30 04/01/2024 BUN 6 (L) 04/01/2024 Creatinine 0.57 (L) 04/01/2024 Glucose Lvl 71 04/01/2024 LFT's Lab Results Component Value Date Alk Phos 100 04/01/2024 AST 18 04/01/2024 Albumin 2.6 (L) 04/01/2024 Total Bilirubin 0.8 04/01/2024 ALT 13 04/01/2024 Total Protein 5.1 (L) 04/01/2024 Pertinent Endoscopic Procedures/Reports: Reviewed Pertinent Recent Imaging: Reviewed Impression: Dylan Michele is a 53 y.o. male with PMH significant for HFrEF (last EF 60-65% in 04/2023) and AUD who presents with nausea, vomiting, poor PO intake. GIs been consulted for abnormal pancreas imagingon CT. Given patient's imaging demonstrates a 5 x 8 cm inferior pancreatic head mass, concern was high forpancreatic adenocarcinoma. Patient underwent EUS yesterday that demonstrated pancreas uncinate masss/p fine-needle biopsy with onsite cytopathology read suggestive of malignancy. Also evidence of malignant duodenal obstruction and an uncovered duodenal stent was successfully placed. Today, he continues to have similar symptoms of early satiety and only able to tolerate small amount of liquid despite duodenal stent placement. We recommend obtaining a small bowel follow-through toevaluate for stent patency. We suspect that possibly his symptoms are due to ongoing malignancy rather than true obstruction. Would also start him on simethicone and Maalox. Recommendations: -Obtain SBFT for evaluation of duodenal stent patency - Start nutritional supplementation with ensures - Recommend referral to oncology and surgical oncology for further management -Follow-up final cytology results -Advance diet to low residue as tolerated, avoid steak and high-fiber foods that could occlude duodenal stent -Start simethicone and Maalox as needed This case was discussed with Dr. Alvarado . Recommendations were discussed with primary team. Yaima Vick M.D. Fellow in Gastroenterology and Hepatology Pager #[phone] 04/01/2024 Associated attestation - Anna Alvarado MD - 04/01/2024 3:20 PM EDT ATTENDING ATTESTATION I have seen the patient in person and reviewed the GI fellow's history and I agree with the detailsas written. The assessment and plan were formulated in discussion with me and I agree with them as documented. Anna Alvarado MD Gastroenterology and Hepatology 04/01/2024 3:20 PM Pager # [phone] * Emerson Ayala MD - 03/31/2024 1:14 PM EDT Hospital Medicine Attending Daily Progress Note Admit Date: 03/29/2024 Hospital Day 2 days Active Hospital Problems Diagnosis Nausea & vomiting Resolved Hospital Problems No resolved problems to display. PMH There are no active non-hospital problems to display for this patient. Inpatient Medications: Scheduled carvediloL 6.25 mg Oral BID WC multivitamin with minerals 1 tablet Oral Daily thiamine 100 mg Oral Daily sodium chloride 0.9 % (flush) 5 mL Intravenous BID enoxaparin 40 mg Subcutaneous Nightly Continuous infusions: sodium chloride 0.9% 100 mL/hr (03/31/24 4260) PRN: sodium chloride 0.9 % (flush), lidocaine, melatonin, ondansetron ODT OR ondansetron Interval History: Pt seen and examined. Feeling symptomatically better. Continued on iv fluids. Says he urinated after many days. GI to take pt for EGD/EUS/mass biopsy tomorrow am. ROS: as noted above Physical Exam Vitals Range last 24 hrs Temperature Temp: [36.3 ??C (97.3 ??F)-36.7 ??C (98.1 ??F)] Heart Rate Heart Rate: [66] Blood Pressure BP: (111-156)/(62-111) Respiratory Rate Resp: [14-17] SpO2 SpO2: [90 %-100 %] Intake/Output Summary (Last 24 hours) at 03/31/2024 1314 Last data filed at 03/31/2024 1232 Gross per 24 hour Intake 900 ml Output 300 ml Net 600 ml Patient Vitals for the past 168 hrs: Weight 03/30/24 0020 122.9 kg (270 lb 15.1 oz) 03/29/24 1621 120.2 kg (265 lb) Body mass index is 37.79 kg/m??. Physical Exam General: chronically ill-appearing male. HEENT: Anicteric sclerae, normal conjunctivae. Dry mucous membranes Neck: Neck veins flat. No tracheal deviation Cor: Normal rate, regular rhythm; S1/S2; no murmurs or rubs appreciated Lungs: Breathing non-labored. Clear to auscultation Abdomen: Soft, non-distended. Mild tenderness to palpation in epigastric region. Normal bowel sounds Extremities: Warm, well perfused. No pitting edema. 2+ peripheral pulses Neurologic: Alert, oriented, cooperative Skin: No rashes or lesions appreciated Studies reviewed in eDH. Remarkable for the following: LABS: Last 3 wbc, hgb, hct plt Recent Labs 03/31/24 0409 03/30/24 0410 03/29/24 1632 WBC 6.4 6.4 10.5* HGB 14.3 14.5 16.1 HCT 42.7 42.9 47.3 PLATELET 263 286 398* Last 3 Lytes Recent Labs 03/31/24 0409 03/30/24 0410 03/29/24 1632 NA 143 145 141 K 3.1* 3.5 2.5* CL 98 98 91* CO2 34* 38* 40* BUN 6* 5* 4* CREATININE 0.58* 0.59* 0.57* Last 3 LFTs Recent Labs 03/31/24 0409 03/29/24 1632 AST 15 20 ALT 11 15 ALKPHOS 104 129 BILITOT 0.6 0.9 FSBG Trend No results for input(s): POCGLU in the last 72 hours. MICRO: No results for input(s): URINECULTURE in the last 720 hours. No results for input(s): GRAMSTAIN, BFCX, LOWERRESPCX, TISSUECX in the last 720 hours. No results for input(s): BLOODCX in the last 720 hours. ECG: No results for input(s): DIAGLINE, QTCCALC in the last 720 hours. VASCULAR: No results for input(s): VBTEXTRPT in the last 720 hours. IMAGING: Results for orders placed or performed during the hospital encounter of 03/29/24 XR Chest One View (Exam End: 03/29/2024 9:34 PM) Result Value WORKSTATION ID [id number] Impression No acute finding. Preliminary report signed by: Dominic Healy MD at 03/29/2024 9:38 PM I have personally reviewed the image(s) and the resident's interpretation and agree with the findings, Kelsie Goodman MD at 03/29/2024 10:36 PM Thank you for letting us participate in the care of this patient. If you are a health care provider and have any questions regarding this report, please contact the number below. For patients who have questions please contact the health intensive care unit registered nurse that requested your imaging first. Electronically signed by: Kelsie Godoman MD, [facility] ([phone]), at 03/29/2024 10:36 PM OTHER Studies: 03/11 CT chest and 03/26 CT abdomen/pelvis w/ contrast. Pertinent findings: - A mass in the inferior head of the pancreas measures 7.8 x 4.9cm on coronal images and 7 x 4.9cm on axial images. Findings consistent with pancreatic malignancy. - Borderline splenomegaly 13.9cm. EGD/EUS 03/31 Impression: - Pancreas uncinate mass. Fine needle biopsy performed. On-site cytopathology read suggestive of malignancy. - Malignant duodenal obstruction. Uncovered duodenal stent successfully placed. Recommendation: - Await final cytology results. - Return to hospital lee. - OK for clear liquid diet. Advance to full liquid diet tomorrow if tolerating clears. - Check CA 19-9. Obtain non-contrast CT chest to complete staging. - Referral to Oncology and Surgical Oncology. Assessment and Plan: Mr. Dylan Michele is a 53 year old male with PMH significant for HFrEF (now recovered, last EF 60-65% in 04/2023) presenting with nausea, vomiting, poor PO intake, and recently identified pancreatic head mass on imaging. EGD/EUS done 03/31 shows Pancreas uncinate mass. Fine needle biopsy performed. On-sitecytopathology read suggestive of malignancy. Malignant duodenal obstruction. Uncovered duodenal stent successfully placed. \. #Nausea #Vomiting #Weight loss #Severe protein-calorie malnutrition #Pancreatic mass likely pancreatic cancer #Hypokalemia #High risk for refeeding syndrome. - Continue NS 100cc/hr. - Zofran PO/IV for nausea. - Repleting K prn - Trend BMP, Ca, Mg. - Nutrition consult. - s/p endoscopy w/ biopsy. - clear liquid diet, ADAT -oncology and surgical onc consulted #Alcohol use disorder #Prior tobacco use - BIT consult for help coping with serious illness, alcohol use disorder/smoking cessation resources. #FEN/PPx/Disposition Fluids: s/p 2L NS bolus, continue iv fluids Electrolytes: ongoing K repletion. Nutrition: DVT PPx: lovenox QD. Disposition: pending clinical course. Code Status: full code. Anticipated Disposition:pending course Goals of Care: Team Pager( Coverage 25/05): #[phone] PCP: Cedric Rosenbaum DO [phone] Attestation: IPI Certification I certify that I am a D-H credentialed attending provider with admitting privileges and that the patient meets or has met medical necessity to require an inpatient IPI level of care meeting a minimumof two midnights or is on the [facility] inpatient only procedure list (status C) due to: pancreatic cancer. Emerson Ayala MD 03/31/2024 * Emerson Ayala MD - 03/30/2024 11:08 AM EDT Hospital Medicine Attending Daily Progress Note Admit Date: 03/29/2024 Hospital Day 1 day Active Hospital Problems Diagnosis Nausea & vomiting Resolved Hospital Problems No resolved problems to display. PMH There are no active non-hospital problems to display for this patient. Inpatient Medications: Scheduled carvediloL 6.25 mg Oral BID WC sodium chloride 0.9 % (flush) 5 mL Intravenous BID enoxaparin 40 mg Subcutaneous Nightly Continuous infusions: sodium chloride 0.9% 100 mL/hr (03/30/24 0814) PRN: sodium chloride 0.9 % (flush), lidocaine, melatonin, ondansetron ODT OR ondansetron Interval History: Pt seen and examined. Feeling symptomatically better. Continued on iv fluids. Says he urinated after many days. GI to take pt for EGD/EUS/mass biopsy tomorrow am. ROS: as noted above Physical Exam Vitals Range last 24 hrs Temperature Temp: [36.5 ??C (97.7 ??F)-37.2 ??C (99 ??F)] Heart Rate Heart Rate: [80-97] Blood Pressure BP: (116-158)/(81-110) Respiratory Rate Resp: [11-18] SpO2 SpO2: [93 %-100 %] Intake/Output Summary (Last 24 hours) at 03/30/2024 1108 Last data filed at 03/30/2024 0800 Gross per 24 hour Intake 430 ml Output 225 ml Net 205 ml Patient Vitals for the past 168 hrs: Weight 03/30/24 0020 122.9 kg (270 lb 15.1 oz) 03/29/24 1621 120.2 kg (265 lb) Body mass index is 37.79 kg/m??. Physical Exam General: chronically ill-appearing male. HEENT: Anicteric sclerae, normal conjunctivae. Dry mucous membranes Neck: Neck veins flat. No tracheal deviation Cor: Normal rate, regular rhythm; S1/S2; no murmurs or rubs appreciated Lungs: Breathing non-labored. Clear to auscultation Abdomen: Soft, non-distended. Mild tenderness to palpation in epigastric region. Normal bowel sounds Extremities: Warm, well perfused. No pitting edema. 2+ peripheral pulses Neurologic: Alert, oriented, cooperative Skin: No rashes or lesions appreciated Studies reviewed in eDH. Remarkable for the following: LABS: Last 3 wbc, hgb, hct plt Recent Labs 03/30/24 0410 03/29/24 1632 WBC 6.4 10.5* HGB 14.5 16.1 HCT 42.9 47.3 PLATELET 286 398* Last 3 Lytes Recent Labs 03/30/24 0410 03/29/24 1632 NA 145 141 K 3.5 2.5* CL 98 91* CO2 38* 40* BUN 5* 4* CREATININE 0.59* 0.57* Last 3 LFTs Recent Labs 03/29/24 1632 AST 20 ALT 15 ALKPHOS 129 BILITOT 0.9 FSBG Trend No results for input(s): POCGLU in the last 72 hours. MICRO: No results for input(s): URINECULTURE in the last 720 hours. No results for input(s): GRAMSTAIN, BFCX, LOWERRESPCX, TISSUECX in the last 720 hours. No results for input(s): BLOODCX in the last 720 hours. ECG: No results for input(s): DIAGLINE, QTCCALC in the last 720 hours. VASCULAR: No results for input(s): VBTEXTRPT in the last 720 hours. IMAGING: Results for orders placed or performed during the hospital encounter of 03/29/24 XR Chest One View (Exam End: 03/29/2024 9:34 PM) Result Value WORKSTATION ID [id number] Impression No acute finding. Preliminary report signed by: Dominic Healy MD at 03/29/2024 9:38 PM I have personally reviewed the image(s) and the resident's interpretation and agree with the findings, Kelsie Goodman MD at 03/29/2024 10:36 PM Thank you for letting us participate in the care of this patient. If you are a health care provider and have any questions regarding this report, please contact the number below. For patients who have questions please contact the health intensive care unit registered nurse that requested your imaging first. R Studies: 03/11 CT chest and 03/26 CT abdomen/pelvis w/ contrast. Pertinent findings: - A mass in the inferior head of the pancreas measures 7.8 x 4.9cm on coronal images and 7 x 4.9cm on axial images. Findings consistent with pancreatic malignancy. - Borderline splenomegaly 13.9cm. Assessment and Plan: Mr. Dylan Michele is a 53 year old male with PMH significant for HFrEF (now recovered, last EF 60-65% in 04/2023) presenting with nausea, vomiting, poor PO intake, and recently identified pancreatic head mass on imaging. Plan for supportive management overnight with continuous fluids and antiemetics; currently no concerning features indicative of need for urgent surgical intervention. Given recently identified pancreatic mass, patient would likely benefit from further characterization/visualization with endoscopy and potential additional biopsy. Will monitor electrolytes and check prealbumin given high concern for malnutrition and possible re-feeding syndrome. - Given prior heavy alcohol and tobacco use and their likely causative role in pancreatic mass, will consult BIT team for assistance in coping support and further discussion of strategies to maintainalcohol/tobacco abstinence. Feeling symptomatically better. Continued on iv fluids. Says he urinated after many days. GI to take pt for EGD/EUS/mass biopsy tomorrow am. #Nausea #Vomiting #Weight loss #Severe protein-calorie malnutrition #Pancreatic mass #Hypokalemia #High risk for refeeding syndrome. - Continue NS 100cc/hr. - Zofran PO/IV for nausea. - Repleting K prn - Trend BMP, Ca, Mg. - Nutrition consult. - GI consult for possible endoscopy w/ biopsy. - regular diet, NPO at NV for tomorrow. #Alcohol use disorder #Prior tobacco use - BIT consult for help coping with serious illness, alcohol use disorder/smoking cessation resources. #FEN/PPx/Disposition Fluids: s/p 2L NS bolus, continue iv fluids Electrolytes: ongoing K repletion. Nutrition: NPO diet for possible endoscopy. DVT PPx: lovenox QD. Disposition: pending clinical course. Code Status: full code. Anticipated Disposition:pending course Goals of Care: Team Pager( Coverage 25/05): #[phone] PCP: None None Attestation: IPI Certification I certify that I am a D-H credentialed attending provider with admitting privileges and that the patient meets or has met medical necessity to require an inpatient IPI level of care meeting a minimumof two midnights or is on the CMS inpatient only procedure list (status C) due to: pancreatic mass. Emerson Ayala MD 03/30/2024 * Selena Hernandez RN - 03/30/2024 6:06 AM EDT Illness Severity [x] Stable [] Watcher [] Unstable Patient Summary Reason for admission: Nausea & Vomiting. New pancreatic mass. Relevant PMH: Obesity, IN, ETOH use, Smoker, CHF, Hep. C. Significant weight loss 86lbs since September 2023. Poor PO intake for the last 5 weeks. Quit drinking & smoking 5 weeks ago. Significant 24 hour events: 03/29 PM: Pt arrived from ER at 0025. A/O x4, VSS on RA/2L NC. No c/o pain but endorsed abdominal discomfort & fullness. Denied N/V, SOB. IVF initiated. IV KCL infusion completed:bags 5-6. NPO status maintained. Bladder scan completed: 114 mls of urine noted. Pt rested in between nursing care. Chemo plan & supportive medication: n/a Baseline Weight: 122.9 kg (with shoes) Most recent weight: Weight: 122.9 kg (270 lb 15.1 oz) (With shoes) (03/30/24 0020) Action List NPO for EGD 03/30/24 Nausea control Discharge Plan: pending Consults: Gastroenterology documented in this encounter H&P Notes * Alan Silva MD - 03/31/2024 10:20 AM EDT Gastroenterology and Hepatology Pre-Procedure History and Physical Exam Procedure: EUS +/- duodenal stent placement Indication: pancreas mass Patient Active Problem List Diagnosis Code Nausea & vomiting R11.2 EXAM: HEENT: Airway examined, oropharynx clear Mallampati Score: per anesthesia LUNGS: Clear to auscultation HEART: Regular rate and rhythm, normal S1, S2 ABDOMEN: Normal bowel sounds, soft, non tender, non distended A/P: Proceed with the planned endoscopic procedure. ASA 3 - Patient with moderate systemic disease with functional limitations Sedation Plan: anesthesia Risks and benefits of the procedure explained to the patient. Consent form signed and included in the patient's chart. Alan Silva MD Advanced Endoscopy Fellow Gastroenterology & Hepatology * Darren Dejesus MD - 03/29/2024 11:57 PM EDT Medicine Admission Note Patient Name: Dylan Michele Service: Hospital medicine, Pager [phone] Primary Care Provider: None None Chief Complaint: Weight loss, intractable nausea/vomiting, pancreatic mass History of Present Illness: Mr. Dylan Michele is a 53 year old male with PMH significant for HFrEF (now recovered, last EF 60-65% in 04/2023) presenting with nausea, vomiting, poor PO intake, and recently identified pancreatic head mass on imaging. Beginning in September 2023, Efrain noted unintentional [...] Since September, he reports 86lbs weight loss. Over the last 5 weeks, patient reports minimal oral intake of both liquids and solids due to poor appetite, early satiety, and nausea. States that he is able to drink just a few ounces of liquid daily and has only been able to eat half a can of soup or ravioli before feeling full. He feels particularly bloated in the lower abdomen and often experiences pain in the epigastric region and bilateral lower quadrants. Endorses frequent nausea and approximately 1 episode of bilious, non-bloody emesis daily. Denies fevers, chills, shortness of breath, chest pain, constipation, or diarrhea. He does also note worsening numbness, tingling, and burning pain in the bilateral legs, distal arms, and left face, which he thinks began prior to poor appetite. Notably, patient has a history of heavy tobacco and alcohol use. He reports drinking 26oz of Schnapps daily for the last several years, and that he had previously been drinking more. Has smoked 1 ppdfor approx. 30 years. Last drink and cigarette were approximately 5 weeks ago, as he noted that they made him feel more nauseous and contributed to emesis. He has quit both alcohol and tobacco cold turkey in the past, but has relapsed due to stressful life events (I.E; of his ex-). He hasnot found success with AA or nicotine replacement products in the past. Review of Systems: As above, otherwise negative Past Medical and Surgical History: Patient Active Problem List Diagnosis Nausea & vomiting Medications: No current facility-administered medications on file prior to encounter. Current Outpatient Medications on File Prior to Encounter Medication Sig Dispense Refill carvediloL (Coreg) 6.25 mg tablet Take 6.25 mg by mouth 2 times daily (with meals). esomeprazole (NexIUM) [address] capsule Take 40 mg by mouth every morning (before breakfast). famotidine (Pepcid) 20 mg tablet Take 20 mg by mouth 2 times daily. Allergies: Allergies Allergen Reactions Nsaids (Non-Steroidal Anti-Inflammatory Drug) Other (See Comments) Lactose Prednisone Vitals: Last value Range last 24 hrs Temperature Temp: 36.5 ??C (97.7 ??F) Temp: [36.5 ??C (97.7 ??F)] Heart Rate Heart Rate: 83 Heart Rate: [83-97] Blood Pressure BP: (!) 158/110 BP: (141-158)/(92-110) Respiratory Rate Resp: 17 Resp: [12-17] SpO2 SpO2: 93 % SpO2: [93 %] Examination: General: chronically ill-appearing male. HEENT: Anicteric sclerae, normal conjunctivae. Dry mucous membranes Neck: Neck veins flat. No tracheal deviation Cor: Normal rate, regular rhythm; S1/S2; no murmurs or rubs appreciated Lungs: Breathing non-labored. Clear to auscultation Abdomen: Soft, non-distended. Mild tenderness to palpation in epigastric region. Normal bowel sounds Extremities: Warm, well perfused. No pitting edema. 2+ peripheral pulses Neurologic: Alert, oriented, cooperative Skin: No rashes or lesions appreciated Access: Patient Lines/Drains/Airways Status Active Tubes/Lines/Drains Name Placement date Placement time Site PIV 03/29/24 1632 20 gauge median cubital vein (antecubital fossa), right 03/29/24 1632 -- less than 1 Laboratory: CBC: Recent Labs 03/29/24 1632 WBC 10.5* HGB 16.1 PLATELET 398* Chemistry: Recent Labs 03/29/24 1632 NA 141 K 2.5* CL 91* CO2 40* BUN 4* CREATININE 0.57* GLUCOSE 91 Recent Labs 03/29/24 1632 CALCIUM 9.0 MAGNESIUM 0.89 PHOS 1.5* LFT's: Recent Labs 03/29/24 1632 BILITOT 0.9 ALBUMIN 3.5 ALKPHOS 129 ALT 15 AST 20 Coags: No results for input(s): PT, INR, PTT, FIBRINOGEN, DDIMER in the last 168 hours. Invalid input(s): THROMBIN TIME Cardiac enzymes: No results for input(s): TROPONINT, CK in the last 7068 hours. Endocrine: No results for input(s): TSH, CORTISOL in the last 7068 hours. Invalid input(s): [id number] Heme: No results for input(s): LDH, HAPTOGLOBIN, URICACID in the last 168 hours. Microbiology: None. Imaging and Diagnostics: See 'media' tab for complete report of 03/11 CT chest and 03/26 CT abdomen/pelvis w/ contrast. Pertinent findings: - A mass in the inferior head of the pancreas measures 7.8 x 4.9cm on coronal images and 7 x 4.9cm on axial images. Findings consistent with pancreatic malignancy. - Borderline splenomegaly 13.9cm. Assessment and Plan: Mr. Dylan Michele is a 53 year old male with PMH significant for HFrEF (now recovered, last EF 60-65% in 04/2023) presenting with nausea, vomiting, poor PO intake, and recently identified pancreatic head mass on imaging. Plan for supportive management overnight with continuous fluids and antiemetics; currently no concerning features indicative of need for urgent surgical intervention. Given recently identified pancreatic mass, patient would likely benefit from further characterization/visualization with endoscopy and potential additional biopsy. Will monitor electrolytes and check prealbumin given high concern for malnutrition and possible re-feeding syndrome. - Given prior heavy alcohol and tobacco use and their likely causative role in pancreatic mass, will consult BIT team for assistance in coping support and further discussion of strategies to maintainalcohol/tobacco abstinence. #Nausea #Vomiting #Weight loss #Severe protein-calorie malnutrition #Pancreatic mass #Hypokalemia #High risk for refeeding syndrome. - Continue NS 100cc/hr. - EKG to assess QT pending. - Zofran PO/IV for nausea. - Repleting K, repeat pending. - Trend BMP, Ca, Mg. - Nutrition consult. - GI consult for possible endoscopy w/ biopsy. - NPO diet. #Alcohol use disorder #Prior tobacco use - BIT consult for help coping with serious illness, alcohol use disorder/smoking cessation resources. #FEN/PPx/Disposition Fluids: s/p 2L NS bolus. Electrolytes: ongoing K repletion. Nutrition: NPO diet for possible endoscopy. DVT PPx: lovenox QD. Disposition: pending clinical course. Code Status: full code. Darren Dejesus MD [facility] Medicine Pager [phone] Associated attestation - Magno Kim MD - 03/31/2024 7:13 AM EDT Please see Dr. Dejesus's note for details of the patient history of presentation and data. I have discussed, reviewed and agree with the documented history with ROS, social and family history, medication list, physical findings, labs/studies, assessment and plan of care. I have examined the patient myself and reviewed all lab studies personally. documented in this encounter ED Notes * Macy Reardon RN - 03/29/2024 11:57 PM EDT Report given to SAM Walters. * Macy Reardon RN - 03/29/2024 11:44 PM EDT Report attempted to floorx1. * Bernarda Martinez MD - 03/29/2024 5:48 PM EDT Brief Attending Note I cared for the patient with the resident physician. Please see Dr. Abbasi's note, associated with the encounter, for more details. HPI: Dylan Michele is a 53 y.o. who presents to the ED after referral from his PCP for a newly identified pancreatic head mass. Progressive weight loss. Nausea/vomiting with attempts to eat, decreased urine output. Feels abd is bloated PMH obesity, IN, ETOH use, smoking,CHF, Hep C by chart review, but patient denies. ED Course: VSS Patient not tolerating PO and has ongoing abdominal pain. K+ low - replacement ordered. Gentle IV fluids. ProBNP 465 Recent Results (from the past 12 hour(s)) Comprehensive metabolic panel (non-fasting) Result Value Glucose Lvl 91 BUN 4 (L) Creatinine 0.57 (L) Sodium 141 Potassium 2.5 (CRIT) Chloride 91 (L) CO2 40 (H) Anion Gap 10 Calcium 9.0 Total Protein 6.3 Albumin 3.5 AST 20 ALT 15 Alk Phos 129 Total Bilirubin 0.9 Estimated GFR 119 Lipase Result Value Lipase 14 Hemogram Result Value WBC 10.5 (H) RBC 5.40 Hemoglobin 16.1 Hematocrit 47.3 MCV 87.6 MCH 29.8 MCHC 34.0 Platelets 398 (H) RDWSD 41.1 RDWCV 12.9 MPV 8.5 nRBC % Auto 0.0 nRBC Abs Auto 0.000 Differential, Automated Result Value Neutrophils % 68.4 Neutr Abs (ANC) 7.16 (H) Lymphocytes % 22.7 Lymphocytes Abs 2.4 Monocytes % 8.2 Monocyte Abs 0.9 Eosinophils % 0.2 Eosinophils Abs 0.0 Basophils % 0.2 Basophils Abs 0.0 Immature Gran % 0.30 Keyona Gran Abs 0.03 Blue Tube HOLD Result Value Blue Hold Sample in lab. Gold Tube HOLD Result Value Gold Hold Sample in lab. Magnesium Result Value Magnesium 0.89 Phosphorus Result Value Phosphorus 1.5 (L) pro-Brain Natriuretic Peptide Result Value ProBNP 465 (H) Assessment/plan: Intractable nausea and vomiting Pancreatic head mass Admit [facility] Bernarda Martinez MD 03/29/24 [id number] * Ramonita Abbasi DO - 03/29/2024 5:04 PM EDT ED Resident Note HPI: Dylan Michele is a 53 y.o. male with a past medical history of alcoholism, smoking, morbid obesity, IN, congestive heart failure, gout who [facility] after being diagnosed with a 7 x 5 cm pancreatic head mass on CT scan and elevated CA19-9 in the setting of 6 months of progressive weight loss of 82 lbs as well as bloating, emesis, food and liquid intolerance, and significant decreased urine output. Symptoms have been progressive over this time, particularly in the last 1 and half months. Patient reports feeling generalized weakness as well as feeling that he has a hard time taking a deep breath because of the bloating. He has been getting short of breath easily. Denies fevers or chills. Denies night sweats. Denies chest pain. Endorses shortness of breath. Emesis had originally been green, now is just yellow. Urinating about once a day. He has been able to take in about 4 ounces of food or liquid daily, all of thiscauses generalized abdominal pain for him. He is accompanied by a friend. History obtained from patient and records sent with patient by primary care doctor. ROS as per HPI Vitals: ED Triage Vitals [03/29/24 1621] BP: (!) 141/92 Heart Rate: 97 Resp: 16 Temp: 36.5 ??C (97.7 ??F) Temp src: Temporal SpO2: 93 % O2 Device: RA O2 Flow Rate (L/min): n/a Physical Exam Vitals and nursing note reviewed. Constitutional: General: He is not in acute distress. Appearance: Normal appearance. He is not ill-appearing, toxic-appearing or diaphoretic. HENT: Head: Normocephalic and atraumatic. Cardiovascular: Rate and Rhythm: Normal rate and regular rhythm. Heart sounds: Normal heart sounds. No murmur heard. Pulmonary: Effort: Pulmonary effort is normal. No respiratory distress. Breath sounds: Normal breath sounds. No stridor. No wheezing, rhonchi or rales. Abdominal: Palpations: Abdomen is soft. Tenderness: There is abdominal tenderness. There is no guarding. Comments: Protuberant abdomen Musculoskeletal: Right lower leg: Edema present. Left lower leg: Edema present. Lymphadenopathy: Cervical: No cervical adenopathy. Neurological: General: No focal deficit present. Mental Status: He is alert and oriented to person, place, and time. ED Course: I have reviewed labs and imaging, images and available reports, and they are significant for: ED Course as of 03/29/242113e March 29, 2024 1733 WBC(!): 10.5 1733 Hemoglobin: 16.1 1733 Platelets(!): 398 1744 Glucose Lvl: 91 1744 Creatinine(!): 0.57 1744 Sodium: 141 1744 Potassium(!!): 2.5 1745 AST: 20 1745 ALT: 15 1745 Alk Phos: 129 1745 Total Bilirubin: 0.9 174 Lipase: 14 2041 Paged [facility] medicine [phone] Discussed admission with hospital medicine. They are requesting second IV line and additional IV fluids. Will add on proBNP, chest x-ray, p.o. challenge. Assessment and Plan: 53 y.o. male with abdominal pain and bloating and significant weight loss with recent diagnosis of pancreatic head mass. Patient is hemodynamically stable and afebrile in triage. Differential diagnoses considered include but are not limited to pancreatic cancer, pancreatitis, biliary obstruction, electrolyte abnormality, anemia, bowel obstruction. Laboratory workup notable for normal lipase, normal liver enzymes, normal kidney function. Given the patient had a bowel movement yesterday, was passing gas today and belly was soft low suspicion for bowel obstruction. Patient IV rehydration and potassium replacement in the emergency department being careful of his volume status given history of heart failure. CT abdomen and pelvis was completed outpatient at [facility] on 03/26/2024.Since the scan was just done recently and there are no acutely new or changed symptoms over the past few days I have elected not to repeat CT imaging today but have requested the images be pushed to [facility] for the hospital team here. Patient admitted to hospital medicine for inability to tolerate oral intake and expedited workup of pancreatic head mass. Ramonita Abbasi DO Resident 03/30/24 0432 Associated attestation - Bernarda Martinez MD - 03/30/2024 2:23 PM EDT ED ATTENDING ATTESTATION The patient was seen in conjunction with the resident physician. I have independently performed thekey portions of the history and physical exam. I have personally reviewed nursing notes, vital signs, and diagnostic studies including labs, imaging studies and EKGs. I have discussed the details of the case with the resident and agree with the assessment and plan as described in the resident's note, unless stated otherwise in my separate note. Did this case involve critical care? No * Dereje Callaway PA - 03/29/2024 4:19 PM EDT Brief Provider Triage Note: 53 y.o. male presents to the emergency department with nerve damage in his face, weight loss, vomiting when he tries to eat. Was diagnosed with a pancreas mass. From phone note: Received report from provider, Dr. Pierce, from [facility], patient presented with weight loss of 82lbs in past 4 months, anorexia, pain, bloating. Patient reports only drinking 2-4oz/day unknown last urinary output. CT of ABD done (2nd one showing 5x8cm mass on inferior head of pancrease) pt also had CT of abd 4 months prior that was negative. Elevated CA-19 Preliminary testing was ordered. The patient is awaiting a bed in the Emergency Department. Dereje Callaway PA 03/29/24 1620 * Elvia Arshad RN - 03/29/2024 3:01 PM EDT Tele ED RN: Received report from provider, Dr. Pierce, from [facility], patient presented with weight loss of 82lbs in past 4 months, anorexia, pain, bloating. Patient reports only drinking 2-4oz/day unknown last urinary output. CT of ABD done (2nd one showing 5x8cm mass on inferior head of pancrease) pt also had CT of abd 4 months prior that was negative. Elevated CA-19 documented in this encounter Miscellaneous Notes * Care Management Discharge - Aniyah Bush RN - 04/06/2024 9:09 AM EDT CARE MANAGEMENT FINAL DISCHARGE NOTE Chart reviewed, care reviewed with primary team and at interdisciplinary rounds. Patient is medically ready for discharge to home. No need for TF and home VNA. Discharging home with picking up patient. Needs for Transition of Care: Plan for discharge is: Home w/o Services Outpatient Agency/Support Group Needs: None *no needs for Home VNA Resp Needs: CPAP / BiPAP *has own BIPAP machine from [employer]: [email or web address] Referrals & Follow-up Care: Transportation: family or friend will provide Wheelchair van/Ambulance? No Functional status prior to admission: Independent Home Environment: Others in the home: friend(s), pet(s) (room mate and girlfriend, 2 cats). CurrentLiving Arrangements: home/apartment/condo. Accessibility Concerns:lives in a 2 bedroom apartment, main floor, [address], bedroom and bathroom is accessible to patient. Current Functional Ability: Independent DME used at home: cane - straight DME Needed at Discharge: n/a Patient is insured through: Primary Insurance: [place] Payor[place] / Plan: [place] / Product Type: *No Product type* / Secondary Insurance: N/A Prescription Coverage: Yes This plan was formulated with input from patient, and team. All are in agreement with plan. JUANITA Medina, RN, CM * Consult Note - Rita Ward MD - 04/06/2024 7:28 AM EDT [facility] Department of Surgery, Hepato Pancreato Biliary Surgery Inpatient Consult Note Consulting Physician: BERNARDA MARTINEZ, PENNIE MCKEON, MARCK AYALA, EMERSON ROBBINS, EMERSON JENKINS Reason for Consult: J tube placement, bypass or whipple surgery HPI: Dylan Michele is a 53 y.o. male Dylan Michele is a 53 y.o. male with PMH significant for HTN, HFrEF (now recovered last EF 60-69% on 04/2023) presented with nausea, vomiting, loss of appetite, poor po intake, and recently identified pancreatic mass on imaging. He started experiencing loss of appetite and weight loss of more than 80 pounds since September 2023. Symptoms continued worsening in November which promoted him to visit [facility] in December this year. During that time, he was scanned with CT of abdomen which showed no mass. However his symptom worsened and started to have abdominal pain and nausea in March. During this time, he revisited his PCP who worked him up with CA19.9, CT scan of the abdomen, endoscopy and colonoscopy on 03/17/24. The endoscopy was reportedly negative while the colonoscopy was significant for several polyps (biopsied). The CT scan at that time showed internal hernia. However, he was re scanned with CT of the abdomen again on 03/25/24 which revealed 5X8cm sized pancreatic mass and referred to [facility]. He was admitted to Medicine service since 03/29/24 for the treatment of severe protein calorie malnutrition, electrolyte abnormalities (Hypokalemia) and increased risk of refeeding syndrome associatedwith pancrease mass. Repeat EGD/EUS was done on 03/31 confirmed pancreatic uncinate mass and uncovered duodenal stent was successfully placed. FNAC from the mass suggested malignancy.Today, Surgical oncology was consulted regarding whether this patient needs palliative bypass, J tube placement or whipple Surgery. Patient has history of heavy tobacco and alcohol use. He had smoked 1 ppd for more than 30 years. He also reported drinking of 26oz of Schnapps daily for several years. Patient has no yellow discoloration of the eye or skin. His bilirubin level and transaminese didn't show an increment since his admission. He has no fever or chills. ROS: Constitutional: (-) f/c, (-) sweats, (-) weight loss, (-) weight gain, (-) fatigue HEENT: (-) change in hearing, (-) nasal congestion, (-) difficulty swallowing, (-) S/T Eyes : (-) change in vision, (-) double vision, (-) eye pain Resp: (-) SOB, (-) MCDONALD, (-) cough, (-) sputum production, (-) wheeze Cardiovascular: (-) chest pain, (-) palpitations, (-) orthopnea, (-) PND, (-) ALISON, (-) syncope GI: (-) abdominal pain, (-) n/v, (-)d/c, (-) heartburn, (-) bloody stools, (-) dark stools : (-) dysuria, (-) urgency, (-) frequency, (-) hematuria Roll On Worker: (-)menorrhagia, (-)menopausal Heme/Lymph: (-) easy bruising, (-) swollen lymph nodes Skin: (-) rashes, (-) lesions, (-) pruritis Musculoskeletal: (-) weakness, (-) myalgias, (-) joint pain Neurological: (-) numbness, (-) tingling, (-) weakness, (-) headaches Psychiatric: (-) depression, (-) anxiety, (-) anhedonia, (-) difficulty sleeping Past Medical / Surgical History: No past medical history on file. Past Surgical History: Procedure Laterality Date PRG FLUOR[facility]/31/2024 FLUOROSCOPY (WRVU 0.3) performed by Eulogio Marcos MD at [facility] ENDOSCOPY PRO EDG FLEXIBLE TRANSORAL ENDOSCOPIC STENT PLACEMENT W/WIRE & DILATION N/A 03/31/2024 EGD, TRANSORAL; WITH PLACEMENT OF ENDOSCOPIC STENT (WRVU 3.92) performed by Eulogio Marcos MD at [facility] ENDOSCOPY PRO UPGI ENDOSCOPY W/US FN BX N/A 03/31/2024 EGD, W US GUIDED FINE NEEDLE ASPIRATION/BIOPSY (WRVU 4.16) performed by Eulogio Marcos MD at [facility] ENDOSCOPY Medications: No current facility-administered medications on file prior to encounter. Current Outpatient Medications on File Prior to Encounter Medication Sig Dispense Refill potassium chloride (Klor-Con, K-Tab) 20 mEq ER tablet Take 1 tablet by mouth 2 times daily. carvediloL (Coreg) 6.25 mg tablet Take 6.25 mg by mouth 2 times daily (with meals). esomeprazole (NexIUM) [address] capsule Take 40 mg by mouth every morning (before breakfast). famotidine (Pepcid) 20 mg tablet Take 20 mg by mouth 2 times daily. atorvastatin (Lipitor) 40 mg tablet Take 40 mg by mouth daily. chlorthalidone (Hygroton) 25 mg tablet Take 25 mg by mouth daily. spironolactone (Aldactone) 25 mg tablet Take 25 mg by mouth daily. lisinopriL (Zestril) 10 mg tablet Take 10 mg by mouth daily. torsemide (Demadex) 20 mg tablet Take 40 mg by mouth daily. Allergies: Allergies Allergen Reactions Nsaids (Non-Steroidal Anti-Inflammatory Drug) Other (See Comments) Lactose Prednisone Physical Exam: Last value Range last 24 hrs Temperature Temp: 36.3 ??C (97.3 ??F) Temp: [36.3 ??C (97.3 ??F)-36.8 ??C (98.2 ??F)] Heart Rate Heart Rate: 70 Heart Rate: -- Blood Pressure BP: 117/79 BP: (106-117)/(69-79) Respiratory Rate Resp: 16 Resp: [16-18] SpO2 SpO2: 99 % SpO2: [85 %-100 %] Art BP BP (Arterial Line): -- I/O last 3 completed shifts: In: 1200 [P.O.:1200] Out: 425 [Urine:425] No intake/output data recorded. Gen: NAD, alert & oriented x3, pleasant, conversant HEENT: EOMI, no scleral icterus, MMM and pink Neck: Supple, trachea midline, no LAD CV: RRR, no m/r/g Pulm: CTAB, no crackles/wheezes, breathing comfortably on RA GI: Non-distended, soft, non tender Ext: no edema, 2+ peripheral pulses Neuro: No focal deficits, sensation intact to crude touch Labs: Recent Results (from the past 24 hour(s)) Basic Metabolic Panel (non-fasting) Result Value Ref Range Glucose Lvl 100 65 - 199 mg/dL BUN 5 (L) 10 - 20 mg/dL Creatinine 0.59 (L) 0.80 - 1.50 mg/dL Sodium 140 135 - 145 mmol/L Potassium 3.4 (L) 3.5 - 5.0 mmol/L Chloride 100 98 - 107 mmol/L CO2 31 22 - 31 mmol/L Anion Gap 9 5 - 15 mmol/L Calcium 8.3 (L) 8.5 - 10.5 mg/dL Estimated GFR 117 >=60 mL/min/1.73 m?? Lavender Tube HOLD Result Value Ref Range Lavender Hold Sample in lab. Microbiology: None Imagin/30, CT AP: 1. Increased size of the primary pancreatic neoplasm with ascular encasement/abutment, as above, aswell as contact with the duodenum. 2. No lymphadenopathy or metastatic disease. 03/31, CT chest: No evidence for intrathoracic metastasis Assessment / Plan: Dylan Michele is a 53 year old male with PMH of HFrEF (now recovered, last EF 60-65%) diagnosed with malignant pancrease Uncinate mass. Uncovered duodenal stent was placed on 03/31/24. Surgical Oncology is consulted for possible palliative bypass, J tube placement or whipple Surgery. Recommendations: No recommendation no diagnostic laparoscopy or J tube placement at this time since patient is already has duodenal stent placed We recommend to see him as an outpatient All plans were discussed with the attending surgeon Rita Ward MD. Signed: Audrey Neumann MD [facility] Hepato Pancreato Biliary Surgery Service Team Pager #[phone] 04/06/24 7:29 AM Thank you for this consult. If you have any questions regarding this consult, please page #[phone]. [] Consult service to continue to follow [X] Consult service to sign off [facility] surgery attending addendum I was finally able to see Efrain this morning before discharge. His sister is on her way down to [facility]. She is an RN. He seems to be doing better from a eating standpoint and is able to tolerate certainly liquids and his low residue diet. Last night he actually had pot roast and he says as long as he chews it well and cuts it up he can eat without emesis. His gastric outlet obstructive symptoms seem to be resolving with the duodenal stent that was placed endoscopically when he had his biopsy. Fortunately he is not having any jaundice symptoms. We had a eliezer conversation about the radiographic CT imaging which is showing that this subtle mass in his uncinate process of the pancreas invading into the duodenum is also encasing the SMA and the SMV-his primary tumor is not metastatic based on the imaging but it is radiographically locally advanced and unresectable. His only really good option right now for treatment is to undergo systemic chemotherapy and this can be administered up in [place] per Dr. Kelly and then be considered for radiation therapy either chemoradiation which would be in [place] or SBRT radiation which would have to be done in [place]. I told him that surgery is unlikely to ever going to be helpful given the extent of the tumor involvement around the blood vessels. I will plan to see him back though next week when we are scheduled to see him in the pancreas tumor clinic next Thursday-my certified legal secretary specialist is actively working on setting up those multidisciplinary appointments with myself, medical oncology, nutrition and genetics. I sent a prescription for pancreas enzymes-Creon 24 with instructions to take 1 capsule with meals-[facility] [place] Esau Ward MD 04/06/2024 11:02 AM * Plan of Care - Marcella Aguilera RN - 04/04/2024 5:46 PM EDT Problem: Adult Inpatient Plan of Care Goal: Plan of Care Review 04/04/20241745 by Marcella Aguilera RN Outcome: Ongoing (Interventions Implemented as Appropriate) 04/04/2024 134 by Marcella Aguilera RN Outcome: Ongoing (Interventions Implemented as Appropriate) Goal: Patient-Specific Goal (Individualized) 04/04/20241745 by Marcella Aguilera RN Outcome: Ongoing (Interventions Implemented as Appropriate) 04/04/2024 134 by aMrcella Aguilera RN Outcome: Ongoing (Interventions Implemented as Appropriate) Goal: Absence of Hospital-Acquired Illness or Injury 04/04/20241745 by Marcella Aguilera RN Outcome: Ongoing (Interventions Implemented as Appropriate) 04/04/2024 1342 by Marcella Aguilera RN Outcome: Ongoing (Interventions Implemented as Appropriate) Goal: Optimal Comfort and Wellbeing 04/04/20241745 by Marcella Aguilera RN Outcome: Ongoing (Interventions Implemented as Appropriate) 04/04/2024 134 by Marcella Aguilera RN Outcome: Ongoing (Interventions Implemented as Appropriate) Goal: Readiness for Transition of Care 04/04/20241745 by Marcella Aguilera RN Outcome: Ongoing (Interventions Implemented as Appropriate) 04/04/2024 1342 by Marcella Aguilera RN Outcome: Ongoing (Interventions Implemented as Appropriate) Problem: Nausea and Vomiting Goal: Fluid and Electrolyte Balance 04/04/2024 1746 by Marcella Aguilera RN Outcome: Ongoing (Interventions Implemented as Appropriate) 04/04/2024 1342 by Marcella Aguilera RN Outcome: Ongoing (Interventions Implemented as Appropriate) Problem: Oral Intake Inadequate Goal: Optimal Oral Intake 04/04/2024 1746 by Marcella Aguilera RN Outcome: Ongoing (Interventions Implemented as Appropriate) 04/04/2024 1342 by Marcella Aguilera RN Outcome: Ongoing (Interventions Implemented as Appropriate) * Plan of Care - Marcella Aguilera RN - 04/04/2024 1:42 PM EDT OUTCOME EVALUATION NOTE: OUTCOME SUMMARY: Pt A/Ox4; VSS on RA. States he felt better yesterday with ambulating and drinking more liquids. Encouraged patient to try to increase number of ensures to 3 and walks to 6 or more. Pt agreeable to plan. Pt up in hallway multiple times today. Drank 3 ensures. Plan for possible J-Tube placement priorto discharge if time allows. Pt has phone call with disability tomorrow and he is concerned about being able to take the phone call. He's trying to figure that out on his own at this time. PLAN MOVING FORWARD: Full liquid diet Nausea control Electrolyte replacement J-Tube placement Ambulate INDIVIDUALIZED FALL PREVENTION INTERVENTIONS: Patient-specific fall risk factors per assessment: [current deficits]: Hospital environment; IV Access; Generalized weakness. Assistance [level of assistance required for transfers and ambulation]: Independent Supervision [direct monitoring required during toileting and ADLs]: Independent Surveillance [continuous indirect monitoring]: Masimo; Bed Alarm; Room near nursing station; Call light within reach; purposeful rounding. Patient-specific fall prevention interventions for sensory deficits provided, if applicable: [X] N/A CARE PLAN GOAL OUTCOME EVALUATION: * Consult Note - Audrey Neumann MD - 04/04/2024 1:32 PM EDT [facility] Department of Surgery, Hepato Pancreato Biliary Surgery Inpatient Consult Note Consulting Physician: BERNARDA MARTINEZ, PENNIE MCKEON, MARCK AYALA, EMERSON ROBBINS, EMERSON JENKINS Reason for Consult: Newly diagnosed Pancreatic Cancer, for possible palliative bypass or whipple surgery HPI: Dylan Michele is a 53 y.o. male with PMH significant for HTN, HFrEF (now recovered last EF 60-69% on 04/2023) presented with nausea, vomiting, loss of appetite, poor po intake, and recently identified pancreatic mass on imaging. He started experiencing loss of appetite and weight loss of more than 80 pounds since September 2023. Symptoms continued worsening in November which promoted him to visit [facility] in December this year. During that time, he was scanned with CT of abdomen which showed no mass. However his symptom worsened and started to have abdominal pain and nausea in March. During this time, he revisited his PCP who worked him up with CA19.9, CT scan of the abdomen, endoscopy and colonoscopy on 03/17/24. The endoscopy was reportedly negative while the colonoscopy was significant for several polyps (biopsied). The CT scan at that time showed internal hernia. However, he was re scanned with CT of the abdomen again on 03/25/24 which revealed 5X8cm sized pancreatic mass and referred to [facility] He was admitted to Medicine service since 03/29/24 for the treatment of severe protein calorie malnutrition, electrolyte abnormalities (Hypokalemia) and increased risk of refeeding syndrome associatedwith pancrease mass. Repeat EGD/EUS was done on 03/31 confirmed pancreatic uncinate mass and uncovered duodenal stent was successfully placed. FNAC from the mass suggested malignancy.Today, Surgical oncology was consulted regarding whether this patient needs palliative bypass, J tube placement or whipple Surgery. Patient has history of heavy tobacco and alcohol use. He had smoked 1 ppd for more than 30 years. He also reported drinking of 26oz of Schnapps daily for several years. Patient has no yellow discoloration of the eye or skin. His bilirubin level and transaminese didn't show an increment since his admission. He has no fever or chills. ROS: Constitutional: (-) f/c, (-) sweats, (-) weight gain, (-) fatigue HEENT: (-) change in hearing, (-) nasal congestion, (-) difficulty swallowing, (-) S/T Eyes : (-) change in vision, (-) double vision, (-) eye pain Resp: (-) SOB, (-) MCDONALD, (-) cough, (-) sputum production, (-) wheeze Cardiovascular: (-) chest pain, (-) palpitations, (-) orthopnea, (-) PND, (-) ALISON, (-) syncope GI: (-)d/c, (-) heartburn, (-) bloody stools, (-) dark stools : (-) dysuria, (-) urgency, (-) frequency, (-) hematuria Roll On Worker: (-)menorrhagia, (-)menopausal Heme/Lymph: (-) easy bruising, (-) swollen lymph nodes Skin: (-) rashes, (-) lesions, (-) pruritis Musculoskeletal: (-) weakness, (-) myalgias, (-) joint pain Neurological: (-) numbness, (-) tingling, (-) weakness, (-) headaches Psychiatric: (-) depression, (-) anxiety, (-) anhedonia, (-) difficulty sleeping Past Medical / Surgical History: No past medical history on file. Past Surgical History: Procedure Laterality Date PRG [facility]A 03/31/2024 FLUOROSCOPY (WRVU 0.3) performed by Eulogio Marcos MD at [facility] ENDOSCOPY PRO EDG FLEXIBLE TRANSORAL ENDOSCOPIC STENT PLACEMENT W/WIRE & DILATION N/A 03/31/2024 EGD, TRANSORAL; WITH PLACEMENT OF ENDOSCOPIC STENT (WRVU 3.92) performed by Eulogio Marcos MD at [facility] ENDOSCOPY PRO UPGI ENDOSCOPY W/US FN BX N/A 03/31/2024 EGD, W US GUIDED FINE NEEDLE ASPIRATION/BIOPSY (WRVU 4.16) performed by Eulogio Marcos MD at [facility] ENDOSCOPY Medications: No current facility-administered medications on file prior to encounter. Current Outpatient Medications on File Prior to Encounter Medication Sig Dispense Refill potassium chloride (Klor-Con, K-Tab) 20 mEq ER tablet Take 1 tablet by mouth 2 times daily. carvediloL (Coreg) 6.25 mg tablet Take 6.25 mg by mouth 2 times daily (with meals). esomeprazole (NexIUM) [address] capsule Take 40 mg by mouth every morning (before breakfast). famotidine (Pepcid) 20 mg tablet Take 20 mg by mouth 2 times daily. atorvastatin (Lipitor) 40 mg tablet Take 40 mg by mouth daily. chlorthalidone (Hygroton) 25 mg tablet Take 25 mg by mouth daily. spironolactone (Aldactone) 25 mg tablet Take 25 mg by mouth daily. lisinopriL (Zestril) 10 mg tablet Take 10 mg by mouth daily. torsemide (Demadex) 20 mg tablet Take 40 mg by mouth daily. Allergies: Allergies Allergen Reactions Nsaids (Non-Steroidal Anti-Inflammatory Drug) Other (See Comments) Lactose Prednisone Physical Exam: Last value Range last 24 hrs Temperature Temp: 36.5 ??C (97.7 ??F) Temp: [36.4 ??C (97.5 ??F)-36.8 ??C (98.2 ??F)] Heart Rate Heart Rate: 70 Heart Rate: [70-83] Blood Pressure BP: 104/69 BP: (99-108)/(68-75) Respiratory Rate Resp: 16 Resp: [13-18] SpO2 SpO2: 100 % SpO2: [99 %-100 %] Art BP BP (Arterial Line): -- I/O last 3 completed shifts: In: 1054 [P.O.:1049; I.V.:5] Out: 350 [Urine:350] No intake/output data recorded. Gen: NAD, alert & oriented x3, pleasant, conversant HEENT: EOMI, no scleral icterus, MMM and pink Neck: Supple, trachea midline, no LAD CV: RRR, no m/r/g Pulm: CTAB, no crackles/wheezes, breathing comfortably on RA GI: Non-distended, soft, non tender Ext: no edema, 2+ peripheral pulses Neuro: No focal deficits, sensation intact to crude touch Labs: Last 3 wbc, hgb, hct plt Recent Labs 04/03/24 0815 04/02/24 0328 04/01/24 0451 WBC 8.4 8.5 7.9 HGB 13.6* 13.6* 13.8 HCT 42.8 41.1 42.7 PLATELET 245 244 281 Last 3 Lytes Recent Labs 04/04/24 0501 04/03/24 0815 04/02/24 1605 NA 140 143 141 K 3.1* 3.4* 3.1* CL 100 101 101 CO2 31 33* 29 BUN 6* 6* 6* CREATININE 0.55* 0.55* 0.47* Last 3 LFTs Recent Labs 04/02/24 0328 04/01/24 0451 03/31/24 0409 AST 14 18 15 ALT 13 13 11 ALKPHOS 94 100 104 BILITOT 0.6 0.8 0.6 Last Ca, Mg, Phos Recent Labs 04/04/24 0501 04/03/24 0815 CALCIUM 8.5 8.3* PHOS -- 2.7 MAGNESIUM -- 0.69 Last 3 Coags No results for input(s): PT, INR, PTT in the last 168 hours. Microbiology: None Imagin/30, CT AP: 1. Increased size of the primary pancreatic neoplasm with ascular encasement/abutment, as above, aswell as contact with the duodenum. 2. No lymphadenopathy or metastatic disease. 03/31, CT chest: No evidence for intrathoracic metastasis Assessment / Plan: Dylan Michele is a 53 year old male with PMH of HFrEF (now recovered, last EF 60-65%) diagnosed with malignant pancrease Uncinate mass. Uncovered duodenal stent was placed on 03/31/24. Surgical Oncology is consulted for possible palliative bypass, J tube placement or whipple Surgery. Recommendations: We will discuss with the patient regarding diagnostic laparoscopy and possible J tube placement during the procedure All plans were discussed with the attending surgeon Rita Ward MD. Signed: Audrey Neumann MD [facility] Hepato Pancreato Biliary Surgery Service Team Pager #[phone] 04/04/24 1:32 PM Thank you for this consult. If you have any questions regarding this consult, please page #[phone]. [X] Consult service to continue to follow [] Consult service to sign off * Care Management - Aniyah Bush RN - 04/04/2024 12:31 PM EDT OFFICE OF CARE MANAGEMENT PROGRESS NOTE LOS: Hospital Day 6 days Chart reviewed, care reviewed with primary team and at interdisciplinary rounds. Patient continues to meet inpatient level of care related to unable to take PO Decision Maker: Self Functional status prior to admission: Independent Home Environment: Others in the home: friend(s), pet(s) (room mate and girlfriend, 2 cats). CurrentLiving Arrangements: home/apartment/condo. Accessibility Concerns: lives in a 2 bedroom apartment, main floor, [address], bedroom and bathroom is accessible to patient. Current Functional Ability: Independent DME used at home: cane - straight DME Needed at Discharge: No Patient is insured through: Primary Insurance: [place] Payor: [place] / Plan: [place] / Product Type: *No Product type* / Secondary Insurance: N/A Plan for discharge is: Home w/ Services Outpatient Agency/Support Group Needs: Homecare agency Resp Needs: CPAP / BiPAP *has own BIPAP machine from [employer]: [employer] Nutrition Type: Tube Feeds Access: Location: Referred to [facility] Coordination, Referred to Home Health Agency Details: home Home Health Services: Registered Nurse, Medication checks Agency Referrals: I have met with the patient to: discuss discharge planning needs. provide the [facility], Office of Care Management letter from the Tank [employer] pertaining to rehab referrals. provide a letter describing our affiliations within the [facility] and educate about their right to choose where referrals are sent. provide a list of Home Health Agencies / Durable Medical Equipment vendors which serve their preferred geographic area. provided patient with [facility] Star Quality Rating handout. They [facility] [address] [place] [address] [place] [address] [facility] or Note routed to a [employer] who will communicate referrals to facilities and provide any required information. Transportation: family or friend will provide Barriers to discharge: Discharge planning Plan going forward: Home services referral. Anticipating tube feeds. [facility] referral in place. Care Management will continue to follow and assist with discharge planning and coordination of care as indicated. Anticipated Date of Discharge: 04/08/2024 JUANITA Medina, RN, CM * Plan of Care - Marcella Aguilera RN - 04/03/2024 5:58 PM EDT OUTCOME EVALUATION NOTE: OUTCOME SUMMARY: Pt A/Ox4; VSS on RA. Pt had a better day today. He has been able to take in 2 ensure clears, jello and cranberry juice. Pt also able to take meds and keep them down today. No complaints of pain or nausea, continues to complain of bloating but less today than yesterday. Family at bedside for a visit. Pt up in hallway x3 this shift. Resting between nursing cares. PLAN MOVING FORWARD: Full liquid diet Nausea control Electrolyte replacement Discharge Plan: Once tolerating food/liquid; d/c to home and follow up with oncology as outpatient. INDIVIDUALIZED FALL PREVENTION INTERVENTIONS: Patient-specific fall risk factors per assessment: [current deficits]: Hospital environment; IV Access; Generalized weakness. Assistance [level of assistance required for transfers and ambulation]: Independent Supervision [direct monitoring required during toileting and ADLs]: Independent Surveillance [continuous indirect monitoring]: Masimo; Bed Alarm; Room near nursing station; Call light within reach; purposeful rounding. Patient-specific fall prevention interventions for sensory deficits provided, if applicable: [X] N/A CARE PLAN GOAL OUTCOME EVALUATION: Problem: Adult Inpatient Plan of Care Goal: Plan of Care Review Outcome: Ongoing (Interventions Implemented as Appropriate) Goal: Patient-Specific Goal (Individualized) Outcome: Ongoing (Interventions Implemented as Appropriate) Goal: Absence of Hospital-Acquired Illness or Injury Outcome: Ongoing (Interventions Implemented as Appropriate) Goal: Optimal Comfort and Wellbeing Outcome: Ongoing (Interventions Implemented as Appropriate) Goal: Readiness for Transition of Care Outcome: Ongoing (Interventions Implemented as Appropriate) Problem: Nausea and Vomiting Goal: Fluid and Electrolyte Balance Outcome: Ongoing (Interventions Implemented as Appropriate) Problem: Oral Intake Inadequate Goal: Optimal Oral Intake Outcome: Ongoing (Interventions Implemented as Appropriate) * Plan of Care - Panchito Ahuja RN - 04/03/2024 1:14 AM EDT OUTCOME EVALUATION NOTE: OUTCOME SUMMARY: AOx4. VSS. Patient continues to complain of abdominal pain and made request for pain medication. MDnotified, however no meds ordered. Patient encouraged to ambulate and gradually increase oral intake as tolerated. PLAN MOVING FORWARD: Encourage oral intake and increased ambulation Monitor electrolytes INDIVIDUALIZED FALL PREVENTION INTERVENTIONS: Patient-specific fall risk factors per assessment: [current deficits]: Generalized weakness Assistance [level of assistance required for transfers and ambulation]: SBA Supervision [direct monitoring required during toileting and ADLs]: Independent Surveillance [continuous indirect monitoring]: Call light and personal belongings within reach, area organized and free of clutter, bed maintained in lowest position Patient-specific fall prevention interventions for sensory deficits provided, if applicable: [X] N/A CPG GOAL OUTCOME EVALUATION: * Plan of Care - Marcella Aguilera RN - 04/02/2024 1:45 PM EDT OUTCOME EVALUATION NOTE: OUTCOME SUMMARY: Pt A/Ox4; VSS on RA. Pt continues to state he feels full and unable to drink or eat anything. Pt was unable to take 40 MEQ of KCL today, changed to 30 Meq IV KCL. Pt unable to tolerate full infusion and was ultimately stopped 30 minutes shy of completing 3rd bag, recheck at 1600 level came back at 3.1; pt took 40 oral KCL dissolved in ensure clear. IVF d/c'd due to 3+ pitting edema in his lower legs. Pt rested between nursing care. PLAN MOVING FORWARD: Full liquid diet Nausea control Electrolyte replacement Discharge Plan: pending INDIVIDUALIZED FALL PREVENTION INTERVENTIONS: Patient-specific fall risk factors per assessment: [current deficits]: Hospital environment; IV Access; Generalized weakness. Assistance [level of assistance required for transfers and ambulation]: Independent Supervision [direct monitoring required during toileting and ADLs]: Independent Surveillance [continuous indirect monitoring]: Masimo; Room near nursing station; Call light withinreach; purposeful rounding. Patient-specific fall prevention interventions for sensory deficits provided, if applicable: [X] N/A CARE PLAN GOAL OUTCOME EVALUATION: Problem: Adult Inpatient Plan of Care Goal: Plan of Care Review Outcome: Ongoing (Interventions Implemented as Appropriate) Goal: Patient-Specific Goal (Individualized) Outcome: Ongoing (Interventions Implemented as Appropriate) Goal: Absence of Hospital-Acquired Illness or Injury Outcome: Ongoing (Interventions Implemented as Appropriate) Goal: Optimal Comfort and Wellbeing Outcome: Ongoing (Interventions Implemented as Appropriate) Goal: Readiness for Transition of Care Outcome: Ongoing (Interventions Implemented as Appropriate) Problem: Nausea and Vomiting Goal: Fluid and Electrolyte Balance Outcome: Ongoing (Interventions Implemented as Appropriate) Problem: Oral Intake Inadequate Goal: Optimal Oral Intake Outcome: Ongoing (Interventions Implemented as Appropriate) * Plan of Care - Lydia Sanchez RN - 04/01/2024 2:06 PM EDT OUTCOME EVALUATION NOTE: OUTCOME SUMMARY: Efrain continues to endorse feeling full all the time. He is taking minimal po clear liquids. Xray ofabd with contrast ordered, to able to drink contrast and will go this evening. Pt continues to haveLE edema. IVF .9NS @100cc/hr infusing as ordered. 3 runs K+ replacement given today for K+ 2.8.Pt reports liquid BM x2, abd soft. PLAN MOVING FORWARD: Full liquid diet Nausea control Electrolyte replacement INDIVIDUALIZED FALL PREVENTION INTERVENTIONS: Patient-specific fall risk factors per assessment: [current deficits]: IV lines, low K+, N/T to extremities Assistance [level of assistance required for transfers and ambulation]: independent with ADL's Supervision [direct monitoring required during toileting and ADLs]: 1 assist with ambulation Surveillance [continuous indirect monitoring]: masimo, pain, electrolytes Patient-specific fall prevention interventions for sensory deficits provided, if applicable: [X] Yes CARE PLAN GOAL OUTCOME EVALUATION: Problem: Adult Inpatient Plan of Care Goal: Plan of Care Review Outcome: Ongoing (Interventions Implemented as Appropriate) Goal: Patient-Specific Goal (Individualized) Outcome: Ongoing (Interventions Implemented as Appropriate) Goal: Absence of Hospital-Acquired Illness or Injury Outcome: Ongoing (Interventions Implemented as Appropriate) Goal: Optimal Comfort and Wellbeing Outcome: Ongoing (Interventions Implemented as Appropriate) Goal: Readiness for Transition of Care Outcome: Ongoing (Interventions Implemented as Appropriate) Problem: Nausea and Vomiting Goal: Fluid and Electrolyte Balance Outcome: Ongoing (Interventions Implemented as Appropriate) Problem: Oral Intake Inadequate Goal: Optimal Oral Intake Outcome: Ongoing (Interventions Implemented as Appropriate) * Consult Note - Tenzin Reid RD - 04/01/2024 11:41 AM EDT Nutrition Progress Note Dylan Michele is a 53 y.o. male with PMH significant for HFrEF (now recovered, last EF 60-65% in 04/2023) presenting with nausea, vomiting, poor PO intake, and recently identified pancreatic head mass on imaging. 03/31: EGD/EUS done shows Pancreas uncinate mass. Fine needle biopsy performed. On-sitecytopathology read suggestive of malignancy. Malignant duodenal obstruction. Uncovered duodenal stent successfully placed. Reason for Assessment: Follow-up Nutrition Recommendations: Clear liquid diet. ADAT - Trial Ensure Clear If unable to tolerate PO intake x 24 hours, please initiate alternate means of nutrition support given severe protein calorie malnutrition. Continue daily multivitamin and 100mg thiamine for 7 days Mg and phos with daily labs- replete as indicated. Pt at risk for refeeding syndrome. Monitor BM Daily weights I was able to discuss plan with provider Medicine 2199 . Current Nutrition Regimen: Active Orders Diet Clear Liquid Frequency: Effective Now Number of Occurrences: Until Specified Assessment: Lab Results Component Value Date NA 143 04/01/2024 K 2.8 (CRIT) 04/01/2024 CL 99 04/01/2024 CO2 30 04/01/2024 BUN 6 (L) 04/01/2024 CREATININE 0.57 (L) 04/01/2024 ESTGFR 119 04/01/2024 MAGNESIUM 0.69 03/31/2024 CALCIUM 8.2 (L) 04/01/2024 PHOS 3.6 03/31/2024 AST 18 04/01/2024 ALT 13 04/01/2024 ALKPHOS 100 04/01/2024 BILITOT 0.8 04/01/2024 HA1C 5.2 03/30/2024 No results found for: POCGLU Patient Lines/Drains/Airways Status Active Nutritional LDAs Name Placement date Placement time Site Days PIV 03/29/24 1632 20 gauge median cubital vein (antecubital fossa), right 03/29/24 1632 -- 3 Oxygen Therapy / Airway Device: None (Room air) Shift Pressure Injury Prevention Occiput: No Injury Thoracic Spine: No Injury Sacral: No Injury Ischial - left: No Injury Ischial - right: No Injury Heel - left: No Injury Heel - right: No Injury Elbow - left: No Injury Elbow - right: No Injury Device Sites: IV sites, O2 sat monitor, oxygen tubing Last Bowel Movement: 04/01/24 Intake/Output Summary (Last 24 hours) at 04/01/2024 1141 Last data filed at 03/31/2024 1824 Gross per 24 hour Intake 800 ml Output 200 ml Net 600 ml Relevant medications: Kcl 10mEq, thiamin, thera M, NS at 100mL/hr Anthropometrics: Admit Weight: 120.2 kg Estimated body mass index is 37.79 kg/m?? as calculated from the following: Height as of this encounter: 180.3 cm (5' 11). Weight as of this encounter: 122.9 kg (270 lb 15.1 oz). [place] Body Weight (IBW) (kg): 78.18 Usual Body Weight: ~345lbs in Sep 2023 (per patient) Weight Loss: unintentional Duration of Weight Loss: 6 Months Weight Lost: 75lbs % of Weight Lost: 21.7% Wt Readings from Last 10 Encounters: 03/30/24 122.9 kg (270 lb 15.1 oz) Patient Vitals for the past 168 hrs: Weight 03/30/24 0020 122.9 kg (270 lb 15.1 oz) 03/29/24 1621 120.2 kg (265 lb) Weight Source: Standing Scale Estimated / Assessed Needs: Kcal / K - 2458 Kcal (16 Kcal/Kg - 20 Kcal/Kg) Estimated Protein Needs: 117 g - 156 g (1.5 g/Kg - 2.0 g/Kg IBW) Nutrition intake and intake history / interview: 04/01: Pt seen for follow up. He remains on a clear liquid diet and reports eating only a jello in the past 48 hrs, endorsing bloating and distention after eating it I feel like I just had my fourth plate of thanksgiving dinner. He is sipping on Powerade Zero, with only 1/2 bottle consumed since Thursday evening. Encouraged trial of Ensure clear for protein, pt agreeable. Per MD, GI is working to fix obstruction issue so holding off on nutrition support at this time. Pt hypokalemic, showing initial signs of refeeding syndrome. 03/30: Consulted for malnutrition eval and poor po intake. Pt NPO for EGD today. Dylan reports no n/v/abd pain although no po intake either. Reports since September 2023 feeling nauseous and bloated.Reports only tolerating sips of water and ~4oz of applesauce before feeling full. 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 Reports a ~80lbs unintentional weight loss with most of the weight loss occurring in the last 3 months as po intake worsened (UBW confirmed per [place] documentation). Addendum: Consulted for MST eval, see above assessment. Nutrition Focused Physical Exam: Performed (03/30/24) Subcutaneous Fat Loss Orbital region: None present Upper arm region (triceps/biceps): None present Thoracic and Lumbar regions (ribs, lower back, and maxillary line): Not assessed Lean Muscle Loss Catholic region (temporalis muscle): Mild Clavicle bone region (pectoralis major): Mild Dorsal hand (interosseous muscle): None present Shoulder (deltoid): Mild Scapular bone region (latissimus dorsi, trapezius muscles): Not assessed Thigh region (quadriceps muscle): Not assessed Posterior calf region (gastrocnemius muscle): None present Fluid Accumulation Fluid Accumulation: Not assessed Malnutrition Diagnosis: Identified: less than or equal to 75% of estimated energy requirement for greater than or equal to 1 month, greater than 10% weight loss in 6 months, and Mild Lean Muscle Loss is consistent with Severe protein-calorie malnutrition in the setting of chronic illness (Sima, NANO J Parenteral Enteral Nutr. 2011; 36(3): 273-83) Nutrition to continue to follow up while inpatient Thank you, Tenzin Reid, MS, RD, LD Clinical Nutrition * Plan of Care - Panchito Ahuja RN - 04/01/2024 2:39 AM EDT OUTCOME EVALUATION NOTE: OUTCOME SUMMARY: Patient AOx4 this shift, VSS. Generalized edema noted to BLE, which patient believes is related to IV fluids being infused. No complaints of n/v, however still endorses abdominal fullness.Also complains of left knee pain. paged and message sent regarding patient's K+ 2.8 this a.m. Awaiting response PLAN MOVING FORWARD: Monitor nausea and vomiting Advance diet as tolerated Await Biopsy results INDIVIDUALIZED FALL PREVENTION INTERVENTIONS: Patient-specific fall risk factors per assessment: [current deficits]: Generalized weakness Assistance [level of assistance required for transfers and ambulation]: Independent Supervision [direct monitoring required during toileting and ADLs]: Independent Surveillance [continuous indirect monitoring]: Call light within reach, bed in lowest position, frequent safety rounds and needs addressed Patient-specific fall prevention interventions for sensory deficits provided, if applicable: [X] N/A CPG GOAL OUTCOME EVALUATION: * Plan of Care - Lydia Sanchez RN - 03/31/2024 5:54 PM EDT OUTCOME EVALUATION NOTE: OUTCOME SUMMARY: Efrain sent for EGD this morning and returned without incident. Pt continued to c/o feeling full despite only taking small sips of clears since procedure. CT abd also done this evening. IV .9NS continued @ 100cc/hr. Potassium replaced today for K 3.1. Pt able to verbalize understanding and acceptanceof procedure today. Pt cont to use O2 intermittently throughout the day. PLAN MOVING FORWARD: Clear liquid diet, advance to fulls 04/01 Nausea control Electrolyte replacement INDIVIDUALIZED FALL PREVENTION INTERVENTIONS: Patient-specific fall risk factors per assessment: [current deficits]: Iv lines, weakness, recent procedure Assistance [level of assistance required for transfers and ambulation]: independent OOB to chair and bathroom Supervision [direct monitoring required during toileting and ADLs]: SBA to ambulate in hallway Surveillance [continuous indirect monitoring]: masjocelynno, pain, N/V Patient-specific fall prevention interventions for sensory deficits provided, if applicable: [X] Yes CARE PLAN GOAL OUTCOME EVALUATION: Problem: Adult Inpatient Plan of Care Goal: Plan of Care Review Outcome: Ongoing (Interventions Implemented as Appropriate) Goal: Patient-Specific Goal (Individualized) Outcome: Ongoing (Interventions Implemented as Appropriate) Goal: Absence of Hospital-Acquired Illness or Injury Outcome: Ongoing (Interventions Implemented as Appropriate) Goal: Optimal Comfort and Wellbeing Outcome: Ongoing (Interventions Implemented as Appropriate) Goal: Readiness for Transition of Care Outcome: Ongoing (Interventions Implemented as Appropriate) Problem: Nausea and Vomiting Goal: Fluid and Electrolyte Balance Outcome: Ongoing (Interventions Implemented as Appropriate) Problem: Oral Intake Inadequate Goal: Optimal Oral Intake Outcome: Ongoing (Interventions Implemented as Appropriate) * Plan of Care - Sanjuanita Tuttle RN - 03/31/2024 2:18 AM EDT OUTCOME EVALUATION NOTE: OUTCOME SUMMARY: Patient VSS on room air, CPAP with 3 L bleed in O2 for sleep, no complaints of pain or nausea, slept well throughout night. NS at 100ml/hr, NPO at midnight for EGD/EUS/biosy PLAN MOVING FORWARD: EGD/EUS/biopsy 03/31 INDIVIDUALIZED FALL PREVENTION INTERVENTIONS: Patient-specific fall risk factors per assessment: [current deficits]: IV pole Assistance [level of assistance required for transfers and ambulation]: independent Supervision [direct monitoring required during toileting and ADLs]: independent Surveillance [continuous indirect monitoring]: angelicao Patient-specific fall prevention interventions for sensory deficits provided, if applicable: [X] Yescall light within reach CARE PLAN GOAL OUTCOME EVALUATION: Problem: Adult Inpatient Plan of Care Goal: Plan of Care Review Outcome: Ongoing (Interventions Implemented as Appropriate) Goal: Patient-Specific Goal (Individualized) Outcome: Ongoing (Interventions Implemented as Appropriate) Goal: Absence of Hospital-Acquired Illness or Injury Outcome: Ongoing (Interventions Implemented as Appropriate) Goal: Optimal Comfort and Wellbeing Outcome: Ongoing (Interventions Implemented as Appropriate) Goal: Readiness for Transition of Care Outcome: Ongoing (Interventions Implemented as Appropriate) Problem: Nausea and Vomiting Goal: Fluid and Electrolyte Balance Outcome: Ongoing (Interventions Implemented as Appropriate) Problem: Oral Intake Inadequate Goal: Optimal Oral Intake Outcome: Ongoing (Interventions Implemented as Appropriate) * Plan of Care - Lydia Sanchez RN - 03/30/2024 5:19 PM EDT OUTCOME EVALUATION NOTE: OUTCOME SUMMARY: Efrain maintained NPO today until lunch time, EGD postponed until tomorrow small amt of soup and power aid then felt bloated and overfull. Pt to be NPO after MN again tonight. Abd round, soft, pt states it feels firm on the inside. Pt cont to have small loose BM's. Voiding in toilet. IVF .9NS @ 100cc/hr. Pt able to verbalize understanding and acceptance of plan. PLAN MOVING FORWARD: NPO for EGD 03/31/24 Nausea control INDIVIDUALIZED FALL PREVENTION INTERVENTIONS: Patient-specific fall risk factors per assessment: [current deficits]: lines, weakness, N/V Assistance [level of assistance required for transfers and ambulation]: independent Supervision [direct monitoring required during toileting and ADLs]: SBA to ambulate in hallway, independent OOB to chair and bathroom Surveillance [continuous indirect monitoring]: masimo, I+O, pain, N/V Patient-specific fall prevention interventions for sensory deficits provided, if applicable: [X] Yes CARE PLAN GOAL OUTCOME EVALUATION: Problem: Adult Inpatient Plan of Care Goal: Plan of Care Review 03/30/20241716 by Lydia Sanchez, RN Outcome: Ongoing (Interventions Implemented as Appropriate) Problem: Adult Inpatient Plan of Care Goal: Patient-Specific Goal (Individualized) 03/30/20241716 by Lydia Sanchez, RN Outcome: Ongoing (Interventions Implemented as Appropriate) Problem: Adult Inpatient Plan of Care Goal: Absence of Hospital-Acquired Illness or Injury 03/30/20241716 by Lydia Sanchez, RN Outcome: Ongoing (Interventions Implemented as Appropriate) Problem: Adult Inpatient Plan of Care Goal: Optimal Comfort and Wellbeing 03/30/20241716 by Lydia Sanchez, RN Outcome: Ongoing (Interventions Implemented as Appropriate) Problem: Adult Inpatient Plan of Care Goal: Readiness for Transition of Care 03/30/20241716 by Lydia Sanchez, RN Outcome: Ongoing (Interventions Implemented as Appropriate) Problem: Nausea and Vomiting Goal: Fluid and Electrolyte Balance 03/30/20241716 by Lydia Sanchez, RN Outcome: Ongoing (Interventions Implemented as Appropriate) Problem: Oral Intake Inadequate Goal: Optimal Oral Intake 03/30/20241716 by Lydia Sanchez, RN Outcome: Ongoing (Interventions Implemented as Appropriate) * Initial Assessments - Aniyah Bush RN - 03/30/2024 10:22 AM EDT Office of Care Management Initial Assessment Aniyah Bush RN reviewed record and discussed patient with Care Team. Source of Information: Team, bedside nurse, medical record, and Patient Introduced self/reviewed role; services accepted. Patient is AAOx3, able to verbalize needs. 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 Lives with his room mate and room mates gf. Ambulatory without equipment Still drives and independent with his ADL. Has cane at home that he barely uses. He has good support at home, has friends and neighbors that willassists and sisters that will be able to help him. Admitted From: Home Reason for Hospitalization: I have abdominal pain-pancreatic mass Covid Vaccination Status: 1st, 2nd & booster Past medical History: No past medical history on file. Hospitalizations Within the Past 30 Days: no previous admission in last 30 days Current Decision-Making Capacity: Self If AD's have not been completed the following surrogate Katherine Vaughan ( sister ) would be surrogate decision maker per [place] surrogate decision making law. (Only good for 180 days) Any patient receiving care in [place] must abide by [place] law. The hierarchy for surrogate decision making is: (a) Patient???s spouse or civil union partner unless there is a divorce proceeding, separation agreement, or restraining order limiting that person???s relationship with the patient. (b) Any adult son or daughter of the patient. (c) Either parent of the patient. (d) Any adult brother or sister of the patient. (e) Any adult grandchild of the patient. (f) Any grandparent of the patient. (g) Any adult aunt, uncle, niece, or nephew of the patient. (h) A close friend of the patient. (i) The agent with financial power of family law attorney or a conservator appointed in accordance with RSA 464-A. (j) The guardian of the patient???s estate. Advance Care Planning: Attempt Cardiopulmonary Resuscitation - Inpatient <no information> -Advanced Directive: No, declines Current Coping/Education/Information Needs: able to verbalize needs Current Functional Ability: Independent Functional Status Prior to Admission: Independent Prior ADLs & IADLs: Independent with all ADLs & IADLs Home Environment: Others in the home: friend(s), pet(s) (room mate and girlfriend, 2 cats). CurrentLiving Arrangements: home/apartment/condo. Accessibility Concerns:lives in a 2 bedroom apartment, main floor, [address], bedroom and bathroom is accessible to patient. Resource / Environmental Concerns: Resource/Environmental Concerns: none In the past 12 months, has lack of transportation kept you from medical appointments or from getting medications?: No In the past 12 months, has lack of transportation kept you from meetings, work, or from getting things needed for daily living?: No Current DME: cane - straight Home Address confirmed as: [address] [place] [address] Social & Family Supports: All names listed below confirmed with patient as current and correct Extended Emergency Contact Information Primary Emergency Contact: Katherine Vaughan Mobile Relation: Sibling Secondary Emergency Contact: Jam Downing Address: [address] [place] [address] [place] Mobile Relation: Friend Current Care Provided by: self Provides Primary Care For: pet(s) (2 cats is being taken care of by his room mate) Caregiver if needed: sibling(s), friend(s) Quality of Family relationships: helpful, involved, supportive Community Resources being provided currently: none Behavioral Health History: currently coping Substance Use/Abuse listed: Social History Tobacco Use Smoking Status Former Current packs/day: 0.50 Types: Cigarettes Smokeless Tobacco Not on file 0 No problems reported 1-2 Low level 3-5 Moderate level 6-8 Substantial level 9- 10 Severe level 0 to 7 points: Low risk 8 to 15 points: Medium risk 16 to 19 points: High risk 20 to 40 points: Addiction likely Other Pertinent/Service Specific Information: denies Health/Prescription Coverage: Primary Insurance: [place] Payor[place] / Plan: [place] / Product Type: *No Product type* / Secondary Insurance: N/A ; Prescription Coverage: Yes Preferred Pharmacy: [id number] - [place], [place] - [address] [facility] [address] [facility] [address] Status: Patient is a : No Primary Care Provider confirmed: David Pierce MD Patient/Caregiver Goals of Treatment: return to home Potential Needs for Transition of Care: none Agency Referrals: Not Applicable - will route referral if needed Transportation: no concerns Transportation Anticipated: family or friend will provide, health plan transportation (will need toknow early if he is discharging so he can make arrangement, or he will need a ride) Concerns to be Addressed: discharge planning Assessment: Patient is admitted to medicine service for abdominal pain- pancreatic mass Plan: Patient is on NPO today, for endoscopy with possible intervention and biopsy. Consult with GI. Pending clinical course. Will route referral if needed. Patient will need to know early his discharge to call for a ride, or he will need a ride a home. A member of the Care Management team will continue to monitor progress, follow for continuity of care and assist with transition of care planning. JUANITA Medina, RN, CM * Consult Note - Alexia Camejo RD - 03/30/2024 8:55 AM EDT Nutrition Consult Note Dylan Michele is a 53 y.o. male with PMH significant for HFrEF (now recovered, last EF 60-65% in 04/2023) presenting with nausea, vomiting, poor PO intake, and recently identified pancreatic head mass on imaging. Reason for Assessment: Malnutrition Evaluation (Poor PO Intake) Nutrition Recommendations: ADAT Low threshold for nutrition support given pt meets criteria for malnutrition as outlined below Addendum: Consulted for [facility] kenzie, see below assessment. Daily multivitamin - pended 100mg thiamine for 7 days - pended Mg and phos with daily labs Monitor BM Daily weights I was able to discuss plan with provider Medicine 2199 . Current Nutrition Regimen: Active Orders Diet NPO diet (Give Meds) Frequency: Effective Now Number of Occurrences: Until Specified Assessment: Lab Results Component Value Date NA 145 03/30/2024 K 3.5 03/30/2024 CL 98 03/30/2024 CO2 38 (H) 03/30/2024 BUN 5 (L) 03/30/2024 CREATININE 0.59 (L) 03/30/2024 ESTGFR 117 03/30/2024 MAGNESIUM 0.74 03/30/2024 CALCIUM 8.1 (L) 03/30/2024 PHOS 2.6 03/30/2024 AST 20 03/29/2024 ALT 15 03/29/2024 ALKPHOS 129 03/29/2024 BILITOT 0.9 03/29/2024 HA1C 5.2 03/30/2024 No results found for: POCGLU Patient Lines/Drains/Airways Status Active Nutritional LDAs Name Placement date Placement time Site Days PIV 03/29/24 1632 20 gauge median cubital vein (antecubital fossa), right 03/29/24 1632 -- 1 Oxygen Therapy / Airway Device: Nasal cannula Shift Pressure Injury Prevention Occiput: No Injury Thoracic Spine: No Injury Sacral: No Injury Ischial - left: No Injury Ischial - right: No Injury Heel - left: No Injury Heel - right: No Injury Elbow - left: No Injury Elbow - right: No Injury Device Sites: O2 sat monitor, IV sites Last Bowel Movement: 03/30/24 Intake/Output Summary (Last 24 hours) at 03/30/2024 0912 Last data filed at 03/30/2024 0800 Gross per 24 hour Intake 430 ml Output 225 ml Net 205 ml Relevant medications: NS at 100mL/hr Anthropometrics: Admit Weight: 120.2 kg Estimated body mass index is 37.79 kg/m?? as calculated from the following: Height as of this encounter: 180.3 cm (5' 11). Weight as of this encounter: 122.9 kg (270 lb 15.1 oz). [place] Body Weight (IBW) (kg): 78.18 Usual Body Weight: ~345lbs in Sep 2023 (per patient) Weight Loss: unintentional Duration of Weight Loss: 6 Months Weight Lost: 75lbs % of Weight Lost: 21.7% Wt Readings from Last 10 Encounters: 03/30/24 122.9 kg (270 lb 15.1 oz) Patient Vitals for the past 168 hrs: Weight 03/30/24 0020 122.9 kg (270 lb 15.1 oz) 03/29/24 1621 120.2 kg (265 lb) Weight Source: Standing Scale Estimated / Assessed Needs: Kcal / K - 2458 Kcal (16 Kcal/Kg - 20 Kcal/Kg) Estimated Protein Needs: 117 g - 156 g (1.5 g/Kg - 2.0 g/Kg IBW) Nutrition intake and intake history / interview: 03/30: Consulted for malnutrition eval and poor po intake. Pt NPO for EGD today. Dylan reports no n/v/abd pain although no po intake either. Reports since September 2023 feeling nauseous and bloated.Reports only tolerating sips of water and ~4oz of applesauce before feeling full. 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 Reports a ~80lbs unintentional weight loss with most of the weight loss occurring in the last 3 months as po intake worsened (UBW confirmed per [place] documentation). Addendum: Consulted for MST eval, see above assessment. Nutrition Focused Physical Exam: Performed (03/30/24) Subcutaneous Fat Loss Orbital region: None present Upper arm region (triceps/biceps): None present Thoracic and Lumbar regions (ribs, lower back, and maxillary line): Not assessed Lean Muscle Loss Catholic region (temporalis muscle): Mild Clavicle bone region (pectoralis major): Mild Dorsal hand (interosseous muscle): None present Shoulder (deltoid): Mild Scapular bone region (latissimus dorsi, trapezius muscles): Not assessed Thigh region (quadriceps muscle): Not assessed Posterior calf region (gastrocnemius muscle): None present Fluid Accumulation Fluid Accumulation: Not assessed Malnutrition Diagnosis: Identified: less than or equal to 75% of estimated energy requirement for greater than or equal to 1 month, greater than 10% weight loss in 6 months, and Mild Lean Muscle Loss is consistent with Severe protein-calorie malnutrition in the setting of chronic illness (NANO Gao J Parenteral Enteral Nutr. 2011; 36(3): 273-83) Nutrition to continue to follow up while inpatient Thank you, Alexia Swenson. Bashir, MS, RD, LD, [facility] Clinical Nutrition * Consult Note - Yaima Vick MD - 03/30/2024 6:20 AM EDT GASTROENTEROLOGY & HEPATOLOGY CONSULTATION Initial Consult Note Requesting Provider: Marck Mckeon* REASON FOR CONSULTATION Pancreatic head mass HISTORY OF PRESENT ILLNESS Dylan Michele is a 53 y.o. male with PMH significant for HFrEF (last EF 60-65% in 04/2023) and AUD who presents with nausea, vomiting, poor PO intake. GIs been consulted for abnormal pancreas imagingon CT. Patient reports his symptoms started in ~September 2023. Reports unintentional weight loss of 86 pounds since then. Over the last 5 weeks, he reports poor appetite, early satiety, nausea leading to minimal p.o. intake with both liquids and solids. Also reporting bloating in the lower abdomen associated with epigastric, LLQ, RLQ pain. Also endorses 1 episode of bilious emesis daily. Denies any fevers, chills, change in bowel habits. Does endorse a heavy smoking history and alcohol use, drinking 26 ounces of schnapps daily over the last several years. He smokes 1 pack/day. His last cigarette andalcoholic beverage was 5 weeks ago. He first sought medical attention in November 2023, and a CT abdomen/pelvis at that time was reportedly negative. His symptoms persisted, however, and he had a further workup with a colonoscopy, endoscopy and repeat CT A/P on 03/25 at [facility]. Colonoscopy demonstrated polyps, EGD was reportedlynegative (see path below), and CT A/P demonstrated a 5 x 8 cm mass on the inferior head of the pancreas. CA 19 9 was also reportedly elevated. In the ED, patient was afebrile and hemodynamically stable. Labs notable for a WBC 6.4, hemoglobin 14.5, platelets 286, creatinine 0.59, normal LFTs, normal lipase. EGD + [facility] (care everywhere): A. DUODENUM, BIOPSY: - Duodenal mucosa with no significant diagnostic abnormalities. B. COLON, TRANSVERSE, POLYP, BIOPSY: - Tubular adenoma. C. COLON, RANDOM, BIOPSY: - Fragment of tubular adenoma. - Fragments of colonic mucosa with no significant diagnostic abnormalities. D. COLON, ASCENDING, POLYP, BIOPSY: - Fragments of tubulovillous adenoma. E. COLON, DESCENDING, POLYP, BIOPSY: - Fragments of tubular adenoma. ROS: 10 systems reviewed and positive for those in HPI, otherwise negative PAST MEDICAL/SURGICAL HISTORY: No past medical history on file. MEDICATIONS sodium chloride 0.9 % (flush) 5 mL Intravenous BID enoxaparin 40 mg Subcutaneous Nightly sodium chloride 0.9% 100 mL/hr (03/30/24 0045) sodium chloride 0.9 % (flush), lidocaine, melatonin, ondansetron ODT OR ondansetron ALLERGIES Allergies Allergen Reactions Nsaids (Non-Steroidal Anti-Inflammatory Drug) Other (See Comments) Lactose Prednisone SOCIAL HISTORY Social History Socioeconomic History Marital status: Single Spouse name: Not on file Number of children: Not on file Years of education: Not on file Highest education level: Not on file Occupational History Not on file Tobacco Use Smoking status: Former Current packs/day: 0.50 Types: Cigarettes Smokeless tobacco: Not on file Substance and Sexual Activity Alcohol use: Not on file Drug use: Not on file Sexual activity: Not on file Other Topics Concern Not on file Social History Narrative Not on file Social Determinants of Health Financial Resource Strain: Not on file Food Insecurity: Not on file Transportation Needs: Not on file Physical Activity: Not on file Intimate Partner Violence: Not At Risk (03/30/2024) IPV Inpatient Questions Prevent Contact with Others: no Feels Threatened by Someone: no Feels Unsafe at Home: no Physical Signs of Abuse Present: no Housing Stability: Not on file FAMILY HISTORY No family history on file. Vitals: 03/30/24 0000 03/30/24 0020 03/30/24 0027 03/30/24 0401 BP: (!) 134/93 (!) 147/93 (!) 131/99 BP Location (NBP): Left arm Left arm Patient Position: Sitting Sitting Pulse: 80 Resp: 09 17 18 Temp: 37.1 ??C (98.8 ??F) 37.2 ??C (99 ??F) TempSrc: Oral Oral SpO2: 95% 100% Weight: 122.9 kg (270 lb 15.1 oz) Height: PHYSICAL EXAM GENERAL: No acute distress, alert and oriented HEENT: AT/NC, sclerae anicteric, moist mucous membranes CHEST: CTA CARDIAC: RRR, normal S1/S2, no appreciable murmurs ABDOMEN: Soft, normoactive bowel sounds, non-tender, non-distended EXT: Warm, no edema NEURO: Grossly intact, moves all extremities, no asterixis SKIN: No jaundice LABS: Lab Results Component Value Date Sodium 145 03/30/2024 Potassium 3.5 03/30/2024 Chloride 98 03/30/2024 CO2 38 (H) 03/30/2024 BUN 5 (L) 03/30/2024 Creatinine 0.59 (L) 03/30/2024 Glucose Lvl 86 03/30/2024 CBC Lab Results Component Value Date WBC 6.4 03/30/2024 Hemoglobin 14.5 03/30/2024 Hematocrit 42.9 03/30/2024 Platelets 286 03/30/2024 LFT's Lab Results Component Value Date Alk Phos 129 03/29/2024 AST 20 03/29/2024 Albumin 3.5 03/29/2024 Total Bilirubin 0.9 03/29/2024 ALT 15 03/29/2024 Total Protein 6.3 03/29/2024 IMAGING: Reviewed in [facility] ENDOSCOPY: Reviewed in [facility] IMPRESSION: Dylan Michele is a 53 y.o. male with PMH significant for HFrEF (last EF 60-65% in 04/2023) and AUD who presents with nausea, vomiting, poor PO intake. GIs been consulted for abnormal pancreas imagingon CT. Given patient's imaging demonstrates a 5 x 8 cm inferior pancreatic head mass, concern is high for pancreatic adenocarcinoma. There may also be a component of gastric outlet obstruction from this mass exerting extrinsic compression on the duodenum. Will perform an EGD with EUS for further evaluation with possible duodenal stent placement if extrinsic compression is noted on EGD. RECOMMENDATIONS: - N.p.o. past midnight for EUS/EGD tomorrow - Trend LFTs daily - obtain prior [facility] CT a/p from November 2023 The plan as outlined above was discussed with Dr. Alvarado. Recommendations were discussed with primaryteam. Yaima Vick M.D. Fellow in Gastroenterology and Hepatology Pager #[phone] 03/30/2024 Associated attestation - Anna Alvarado MD - 03/30/2024 11:13 AM EDT ATTENDING ATTESTATION I have seen the patient in person and reviewed the GI fellow's history and I agree with the detailsas written. The assessment and plan were formulated in discussion with me and I agree with them as documented. Progressive decline in po tolerance along with early satiety, weight loss in the settingof new pancreatic mass concerning for malignancy. Stomach is not distended on CT but can appreciatearea of duodenum that may be externally compressed from mass. Recommend liquid diet pending direct visualization and consideration of duodenal stent placement. Anna Alvarado MD Gastroenterology and Hepatology 03/30/2024 11:13 AM Pager # [phone] * ED Triage - Allison Virgen RN - 03/29/2024 4:19 PM EDT Pt presents from his PCP clinic. Reports they found a mass on his pancreas. Has lost 86lbs. Decreased PO intake, reports emesis when he tries to eat. Reports very little urine output. Feels bloated and reports it makes it difficult for him to take a full breath. documented in this encounter Plan of Treatment Upcoming Encounters Date Type Department Care Team (Late st Contact Info) Description 05/20/2024 8:30 AM EDT Office Visit Hematology/Oncology at [address] [phone] Ministerio Kelly MD [facility] [place] [address] Katherine Guadarrama, [address] HEMATOLOGY AND [place], [place] [id number] 05/20/2024 9:00 AM EDT Infusion Hematology Oncology at [address] [phone] 05/30/2024 1:00 PM EDT Tech Visit Vascular [place] [phone] Dena Graves 05/30/2024 4:00 PM EDT Office [place] [phone] Derek Evans MD [facility] [place] [address] 06/03/2024 8:30 AM EDT Office Visit Hematology/Oncology at [address] [phone] Ministerio Kelly MD [facility] [place] [address] [address] Gu[address]ama[address] HEMATOLOGY AND [place], [place] [id number] 06/03/2024 9:00 AM EDT Infusion Hematology Oncology at [address] [phone] Scheduled Orders Name Type Priority Associated Diagnoses Orde r Schedule EKG 12 Lead ECG STAT One Time for 1 Occurrences starting 03/29/2024 until 03/29/2024 Scheduled Referrals Name Type Priority Associated Diagnoses Order Schedule Referral to Hematology and Oncology Outpatient Referral Routine Pancreatic mass Ordered: 04/06/2024 Referral to General Surgery Outpatient Referral Routine Pancreatic mass Ordered: 04/06/2024 documented as of this encounter Procedures Procedure Name Priority Date/Time Associated Diagnosis Comments LAVENDER TUBE HOLD Routine 04/06/2024 3: 59 AM EDT BASIC METABOLIC PANEL (NON-FASTING) Routine 04/06/2024 3:59 AM EDT LAVENDER TUBE HOLD Routine 04/05/2024 4: 56 AM EDT BASIC METABOLIC PANEL (NON-FASTING) Routine 04/05/2024 4:56 AM EDT LAVENDER TUBE HOLD Routine 04/04/2024 5: 01 AM EDT BASIC METABOLIC PANEL (NON-FASTING) Routine 04/04/2024 5:01 AM EDT HEMOGRAM Routine 04/03/2024 8:15 AM EDT DIFFERENTIAL, AUTOMATED Routine 04/03/2024 8:15 AM EDT HC CBC,PLT & AUTO DIFF Routine 8:15 AM EDT HC PHOSPHORUS, SERUM Routine 04/03/2024 8:15 AM EDT HC MAGNESIUM, SERUM Routine 04/03/2024 8 :15 AM EDT BASIC METABOLIC PANEL (NON-FASTING) Routine 04/03/2024 8:15 AM EDT MAGNESIUM Routine 04/02/2024 4:05 PM EDT BASIC METABOLIC PANEL (NON-FASTING) Routine 04/02/2024 4:05 PM EDT XR ABDOMEN 1 VIEW FOR CONTRAST CHALLENGE Routine 04/02/2024 10:54 AM EDT XR ABDOMEN 1 VIEW FOR CONTRAST CHALLENGE Routine 04/02/2024 5:37 AM EDT HEMOGRAM Routine 04/02/2024 3:28 AM EDT DIFFERENTIAL, AUTOMATED Routine 04/02/2024 3:28 AM EDT HC CBC,PLT & AUTO DIFF Routine 3:28 AM EDT COMPREHENSIVE METABOLIC PANEL (NON-FASTING) Routine 04/02/2024 3:28 AM EDT XR ABDOMEN 1 VIEW FOR CONTRAST CHALLENGE Routine 04/01/2024 11:15 PM EDT XR ABDOMEN 1 VIEW FOR CONTRAST CHALLENGE Routine 04/01/2024 4:58 PM EDT HC PHOSPHORUS, SERUM Routine 04/01/2024 4:07 PM EDT HC MAGNESIUM, SERUM Routine 04/01/2024 4 :07 PM EDT BASIC METABOLIC PANEL (NON-FASTING) Routine 04/01/2024 4:07 PM EDT HEMOGRAM Routine 04/01/2024 4:51 AM EDT DIFFERENTIAL, AUTOMATED Routine 04/01/2024 4:51 AM EDT HC CBC,PLT & AUTO DIFF Routine 4:51 AM EDT COMPREHENSIVE METABOLIC PANEL (NON-FASTING) Routine 04/01/2024 4:[address] CHEST WO CONTRAST (GENERIC) Routine 03/31/2024 5:35 PM EDT REQUEST FOR 2ND READ CT ABDOMEN AND PELVIS Routine 03/31/2024 5:05 PM EDT XR ERCP Routine 03/31/2024 12:37 PM EDT NON-PAYRO[employer] T[employer] SPECIALIST FINAL REPORT Routine 03/31/2024 11:12 AM EDT CYTOPATHOLOGY NON-GYNECOLOGICAL Routine 03/31/2024 11:12 AM EDT Edg Flexible Transoral Endoscopic Stent Placement W/Wire & Dilation(55971) 03/31/2024 10:33 AM EDT pancreas head mass Fluoroscopy Exam Up To 1 Hr Phy Or Oth Hlth Care Prov ([id number]) 03/31/2024 10:33 AM EDT pancreas head mass Upgi Endoscopy W/Us Fn Bx ([id number]) 03/31/2024 10:33 AM EDT pancreas head mass UPPER EUS-ENDOSCOPIC ULTRASOUND Routine 03/31/2024 9:53 AM EDT HEMOGRAM Routine 03/31/2024 4:09 AM EDT DIFFERENTIAL, AUTOMATED Routine 03/31/2024 4:09 AM EDT HC VENIPUNCTURE Routine 03/31/2024 4:09 AM EDT PHOSPHORUS Routine 03/31/2024 4:09 AM EDT MAGNESIUM Routine 03/31/2024 4:09 AM EDT COMPREHENSIVE METABOLIC PANEL (NON-FASTING) Routine 03/31/2024 4:09 AM EDT URINALYSIS MICROSCOPIC EXAM STAT 03/30/2024 4:45 AM EDT URINALYSIS WITH REFLEX CULTURE STAT 03/30/2024 4:45 AM EDT HEMOGRAM Routine 03/30/2024 4:10 AM EDT DIFFERENTIAL, AUTOMATED Routine 03/30/2024 4:10 AM EDT CARBOHYDRATE ANTIGEN 19-9 Routine 03/30/2024 4:10 AM EDT HC VENIPUNCTURE Routine 03/30/2024 4:10 AM EDT HC PREALBUMIN, SERUM Routine 03/30/2024 4:10 AM EDT HC PHOSPHORUS, SERUM Routine 03/30/2024 4:10 AM EDT HC MAGNESIUM, SERUM Routine 03/30/2024 4 :10 AM EDT HC HEMOGLOBIN A1C STAT 03/30/2024 4:1 0 AM EDT CEA Routine 03/30/2024 4:10 AM EDT BASIC METABOLIC PANEL (NON-FASTING) Routine 03/30/2024 4:10 AM EDT XR CHEST ONE VIEW STAT 03/29/2024 9:3 4 PM EDT HEMOGRAM STAT 03/29/2024 4:32 PM EDT DIFFERENTIAL, AUTOMATED STAT 03/29/2024 4:32 PM EDT GOLD TUBE HOLD STAT 03/29/2024 4:32 PM EDT BLUE TUBE HOLD STAT 03/29/2024 4:32 PM EDT HC CBC,PLT & AUTO DIFF STAT 4:32 PM EDT PHOSPHORUS STAT 03/29/2024 4:32 PM EDT PRO-BRAIN NATRIURETIC PEPTIDE STAT 03/29/2024 4:32 PM EDT MAGNESIUM STAT 03/29/2024 4:32 PM EDT HC LIPASE STAT 03/29/2024 4:32 PM EDT COMPREHENSIVE METABOLIC PANEL (NON-FASTING) STAT 03/29/2024 4:32 PM EDT FILM LIBRARY STORAGE ONLY CT ABDOMEN AND PELVIS STAT 03/25/2024 12:00 AM EDT FILM LIBRARY STORAGE ONLY ULTRASOUND STUDY STAT 03/11/2024 12:05 AM EDT FILM LIBRARY STORAGE ONLY CT CHEST STAT 03/11/2024 12:00 AM EDT FILM LIBRARY STORAGE ONLY CT ABDOMEN AND PELVIS Routine 12/15/2023 12:00 AM EST documented in this encounter Results * Lavender Tube HOLD (04/06/2024 3:59 AM EDT) Pathologist [facility] Lavender Hold Sample in lab. [facility] Blood Venous Draw / Unknown 04/06/2024 3:59 AM EDT 04/06/2024 4:44 AM EDT Marck Guevara MD HEMATOLOGY ORDERABLE S [facility] [place] [address] * (ABNORMAL) Basic Metabolic Panel (non-fasting) (04/06/2024 3:59 AM EDT) Pathologist [facility] Glucose Lvl 100 65 - 199 mg/dL [facility] Comment:Diabetes: >=200 mg/d L plus symptoms BUN 5(L) 10 - 20 mg/dL [facility] Creatinine 0.59(L) 0.80 - 1.50 mg/dL [facility] Sodium 140 135 - 145 mmol/L [facility] Potassium 3.4(L) 3.5 - 5.0 mmol/L [facility] Comment: Please note: ??Patients with WBC >100,000 may have falsely elevated Potassium levels. ??For accurate Potassium quantification in these patients send serum separator tube (gold top) for subsequent determinations. ??Contact the Clinical Chemistry Laboratory if there are any questions. Chloride 100 98 - 107 mmol/L [facility] CO2 31 22 - 31 mmol/L [facility] Anion Gap 9 5 - 15 mmol/L [facility] Calcium 8.3(L) 8.5 - 10.5 mg/dL [facility] Estimated GFR 117 >=60 mL/min/1. 73 m?? [facility] Comment: This patient's [...] and symptoms in addition to eGFR. Blood 04/06/2024 3:59 AM EDT 04/06/2024 4:42 AM EDT Narrative Resulting Agency Comment Spec In Lab Marck Guevara MD CHEMISTRY ORDERABLES Performing Organization Address City/[facility]/ZIP Co de Phone Number [facility] [place] [address] * Lavender Tube HOLD (04/05/2024 4:56 AM EDT) Lavender Hold Sample in lab. [facility] Blood Venous Draw / Unknown 04/05/2024 4:56 AM EDT 04/05/2024 5:26 AM EDT Marck Guevara MD HEMATOLOGY ORDERABLE S Performing Organization Address City/[facility]/ZIP Co de Phone Number [facility] [place] [address] * (ABNORMAL) Basic Metabolic Panel (non-fasting) (04/05/2024 4:56 AM EDT) Glucose Lvl 93 65 - 199 mg/dL [facility] Comment:Diabetes: >=200 mg/d L plus symptoms BUN 4(L) 10 - 20 mg/dL [facility] Creatinine 0.53(L) 0.80 - 1.50 mg/dL [facility] Sodium 142 135 - 145 mmol/L [facility] Potassium 3.2(L) 3.5 - 5.0 mmol/L [facility] Comment: Please note: ??Patients with WBC >100,000 may have falsely elevated Potassium levels. ??For accurate Potassium quantification in these patients send serum separator tube (gold top) for subsequent determinations. ??Contact the Clinical Chemistry Laboratory if there are any questions. Chloride 102 98 - 107 mmol/L [facility] CO2 30 22 - 31 mmol/L [facility] Anion Gap 10 5 - 15 mmol/L [facility] Calcium 8.3(L) 8.5 - 10.5 mg/dL [facility] Estimated GFR 121 >=60 mL/min/1. 73 m?? [facility] Comment: This patient's [...] and symptoms in addition to eGFR. Blood 04/05/2024 4:56 AM EDT 04/05/2024 5:26 AM EDT Narrative Resulting Agency Comment Spec In Lab Marck Guevara MD CHEMISTRY ORDERABLES [facility] [place] [address] * Lavender Tube HOLD (04/04/2024 5:01 AM EDT) Lavender Hold Sample in lab. [facility] Blood Venous Draw / Unknown 04/04/2024 5:01 AM EDT 04/04/2024 5:24 AM EDT Marck Guevara MD HEMATOLOGY ORDERABLE S [facility] [place] [address] * (ABNORMAL) Basic Metabolic Panel (non-fasting) (04/04/2024 5:01 AM EDT) Glucose Lvl 121 65 - 199 mg/dL [facility] Comment:Diabetes: >=200 mg/d L plus symptoms BUN 6(L) 10 - 20 mg/dL [facility] Creatinine 0.55(L) 0.80 - 1.50 mg/dL [facility] Sodium 140 135 - 145 mmol/L [facility] Potassium 3.1(L) 3.5 - 5.0 mmol/L [facility] Comment: Called by: pranav, Read back by: panchito ahuja, Date/Time:04/04/24 06:07. Please note: ??Patients with WBC >100,000 may have falsely elevated Potassium levels. ??For accurate Potassium quantification in these patients send serum separator tube (gold top) for subsequent determinations. ??Contact the Clinical Chemistry Laboratory if there are any questions. Chloride 100 98 - 107 mmol/L [facility] CO2 31 22 - 31 mmol/L [facility] Anion Gap 9 5 - 15 mmol/L [facility] Calcium 8.5 8.5 - 10.5 mg/dL [facility] Estimated GFR 120 >=60 mL/min/1. 73 m?? [facility] Comment: This patient's [...] and symptoms in addition to eGFR. Blood 04/04/2024 5:01 AM EDT 04/04/2024 5:24 AM EDT Narrative Resulting Agency Comment Spec In Lab Marck Guevara MD CHEMISTRY ORDERABLES [facility] [place] [address] * Differential, Automated (04/03/2024 8:15 AM EDT) Neutrophils % 70.9 % [facility] Neutr Abs (ANC) 5.91 1.70 - 6.10 x10(3)/[facility] Lymphocytes % 20.1 % [facility] Lymphocytes Abs 1.7 0.9 - 3.2 x10(3)/[facility] Monocytes % 8.0 % [facility] Monocyte Abs 0.7 0.3 - 0.9 x10(3)/[facility] Eosinophils % 0.6 % [facility] Eosinophils Abs 0.0 0.0 - 0.4 x10(3)/[facility] Basophils % 0.2 % [facility] Basophils Abs 0.0 0.0 - 0.1 x10(3)/[facility] Immature Gran % 0.20 % [facility] Comment: Immature granulocytes(IG's)percentage and absolute count will include metamyelocytes, myelocytes, and promyelocytes. Blood smears from CBCs yielding IG's will be scanned manually for concordance. If this scan disagrees with the automated IG or if promyelocytes are noted, a manual differential will be performed. [place] Gran Abs 0.02 0.00 - 0.04 x10(3)/[facility] Blood 04/03/2024 8:15 AM EDT 04/03/2024 8:35 AM EDT Narrative Resulting Agency Comment Spec In Lab Marck Guevara MD HEMATOLOGY ORDERABLE S [facility] [place] [address] * (ABNORMAL) Hemogram (04/03/2024 8:15 AM EDT) Pathologist [facility] WBC 8.4 4.0 - 9.5 x10(3)/[facility] RBC 4.74 4.58 - 5.54 x10(6)/[facility] Hemoglobin 13.6(L) 13.7 - 16.5 g/dL [facility] Hematocrit 42.8 40.5 - 48.5 % [facility] MCV 90.3 82.9 - 93.1 [facility] MCH 28.7 27.5 - 32.1 pg [facility] MCHC 31.8(L) 32.0 - 35.7 g/dL [facility] Platelets 245 145 - 357 x10(3)/[facility] RDWSD 43.8 36.0 - 45.0 [facility] RDWCV 13.2 11.4 - 13.8 % [facility] MPV 9.0 7.6 - 12.9 [facility] nRBC % Auto 0.0 % [facility] nRBC Abs Auto 0.000 0.000 - 0.000 x10(3)/[facility] Blood 04/03/2024 8:15 AM EDT 04/03/2024 8:35 AM EDT Narrative Resulting Agency Comment Spec In Lab Marck Guevara MD HEMATOLOGY ORDERABLE S [facility] [place] [address] * Magnesium (04/03/2024 8:15 AM EDT) Pathologist [facility] Magnesium 0.69 0.69 - 1.07 mmol/L [facility] Blood 04/03/2024 8:15 AM EDT 04/03/2024 8:35 AM EDT Narrative Resulting Agency Comment Spec In Lab Marck Guevara MD CHEMISTRY ORDERABLES Performing Organization Address City/[facility] Co de Phone Number [facility] [place] [address] * Phosphorus (04/03/2024 8:15 AM EDT) Phosphorus 2.7 2.5 - 4.5 mg/dL [facility] Blood 04/03/2024 8:15 AM EDT 04/03/2024 8:35 AM EDT Narrative Resulting Agency Comment Spec In Lab Marck Guevara MD CHEMISTRY ORDERABLES Performing Organization Address [facility] Co de Phone Number [facility] [place] [address] * (ABNORMAL) Basic Metabolic Panel (non-fasting) (04/03/2024 8:15 AM EDT) Glucose Lvl 95 65 - 199 mg/dL [facility] Comment:Diabetes: >=200 mg/d L plus symptoms BUN 6(L) 10 - 20 mg/dL [facility] Creatinine 0.55(L) 0.80 - 1.50 mg/dL [facility] Sodium 143 135 - 145 mmol/L [facility] Potassium 3.4(L) 3.5 - 5.0 mmol/L [facility] Comment: Please note: ??Patients with WBC >100,000 may have falsely elevated Potassium levels. ??For accurate Potassium quantification in these patients send serum separator tube (gold top) for subsequent determinations. ??Contact the Clinical Chemistry Laboratory if there are any questions. Chloride 101 98 - 107 mmol/L [facility] CO2 33(H) 22 - 31 mmol/L [facility] Anion Gap 9 5 - 15 mmol/L [facility] Calcium 8.3(L) 8.5 - 10.5 mg/dL [facility] Estimated GFR 120 >=60 mL/min/1. 73 m?? [facility] Comment: This patient's [...] and symptoms in addition to eGFR. Blood 04/03/2024 8:15 AM EDT 04/03/2024 8:35 AM EDT Narrative Resulting Agency Comment Spec In Lab Marck Guevara MD CHEMISTRY ORDERABLES [facility] [place] [address] * (ABNORMAL) Magnesium (04/02/2024 4:05 PM EDT) Magnesium 0.63(L) 0.69 - 1.07 mmol/L [facility] Blood Venous Draw / Unknown 04/02/2024 4:05 PM EDT 04/02/2024 4:16 PM EDT Narrative Resulting Agency Comment Spec In Lab Kay Robbins MD CHEMISTRY ORDERABLES [facility] [place] [address] * (ABNORMAL) Basic Metabolic Panel (non-fasting) (04/02/2024 4:05 PM EDT) Glucose Lvl 83 65 - 199 mg/dL [facility] Comment:Diabetes: >=200 mg/d L plus symptoms BUN 6(L) 10 - 20 mg/dL [facility] Creatinine 0.47(L) 0.80 - 1.50 mg/dL [facility] Sodium 141 135 - 145 mmol/L [facility] Potassium 3.1(L) 3.5 - 5.0 mmol/L [facility] Comment: Please note: ??Patients with WBC >100,000 may have falsely elevated Potassium levels. ??For accurate Potassium quantification in these patients send serum separator tube (gold top) for subsequent determinations. ??Contact the Clinical Chemistry Laboratory if there are any questions. Chloride 101 98 - 107 mmol/L [facility] CO2 29 22 - 31 mmol/L [facility] Anion Gap 11 5 - 15 mmol/L [facility] Calcium 8.2(L) 8.5 - 10.5 mg/dL [facility] Estimated GFR 126 >=60 mL/min/1. 73 m?? [facility] Comment: This patient's [...] and symptoms in addition to eGFR. Blood 04/02/2024 4:05 PM EDT 04/02/2024 4:13 PM EDT Narrative Resulting Agency Comment Spec In Lab Kay Robbins MD CHEMISTRY ORDERABLES [facility] [place] [address] * XR Abdomen 1 view Contrast Challenge (04/02/2024 10:54 AM EDT) [employer] WORKSTATION ID [id number] RAD Anatomical Region Laterality Modality Abdomen N/A [...] who have questions please contact the health intensive care unit registered nurse that requested your imaging first. ? Electronically signed by: Katherine Salazar MD, [facility] ([phone]), at 04/02/2024 5:05 PM Narrative 04/02/2024 5:05 PM EDT EXAMINATION: XR ABDOMEN 1 VIEW FOR CONTRAST CHALLENGE CLINICAL HISTORY: follow up to contrast challenge TECHNIQUE: AP supine radiographs of the abdomen labeled 24 HR POST, 4 images, 04/02/2024 electronically time stamped [id number] hours COMPARISON: AP supine radiographs of the abdomen 04/02/2024 electronically time stamped [id number] hours. FINDINGS: Minimal residual contrast seen in [...] HR POST, 4 images,04/02/2024 electronically time stamped [id number] hours COMPARISON: AP supine radiographs of the abdomen 04/02/2024 electronically timestamped [id number] hours. FINDINGS: Minimal residual contrast seen in [...] patients who have questions please contactthe health intensive care unit registered nurse that requested your imaging first. Electronically signed by: Katherine Salazar MD, [facility]([phone]), at 04/02/2024 5:05 PM Emerson Ayala MD IMG DX ORDERABLES * XR Abdomen 1 view Contrast Challenge (04/02/2024 5:37 AM EDT) WORKSTATION ID [id number] RAD Anatomical Region Laterality Modality Abdomen N/A Digital Radiogra phy Impressions 04/02/2024 8:44 AM EDT No small bowel obstruction. Enteric contrast column within the nondilated descending and sigmoid colon. Thank you for letting us participate in the care of this patient. ??If you are a health care provider and have any questions regarding this report, please contact the number below. ??For patients who have questions please contact the health intensive care unit registered nurse that requested your imaging first. ? Electronically signed by: Evelin Mendez MD, [facility] ([phone]), at 04/02/2024 8:44 AM Narrative 04/02/2024 8:44 AM EDT EXAMINATION: XR ABDOMEN 1 VIEW FOR CONTRAST CHALLENGE, XR ABDOMEN 1 VIEW FOR CONTRAST CHALLENGE CLINICAL HISTORY: follow up to contrast challenge TECHNIQUE: Supine abdomen April 01, 2024 2323 hours and April 02, 2024 at 0535 hours COMPARISON: April 01, 2024 at 1654 hours FINDINGS: Initial study demonstrates contrast column has become dilute and passed into the distal large bowel. Second study shows stable position of the contrast column in the nondilated descending and sigmoid colon. Paucity of small bowel gas. No free air. Imaged segments of lung bases clear. Stent at the left upper quadrant stable position. Procedure Note Evelin Mendez MD - 04/02/2024 EXAMINATION: XR ABDOMEN 1 VIEW FOR CONTRAST CHALLENGE, XR ABDOMEN 1 VIEWFOR CONTRAST CHALLENGE CLINICAL HISTORY: follow up to contrast challenge TECHNIQUE: Supine abdomen April 01, 2024 2323 hours and April 02, 2024 at 0535 hours COMPARISON: April 01, 2024 at 1654 hours FINDINGS: Initial study demonstrates contrast column has become dilute and passedinto the distal large bowel. Second study shows stable position of the contrast column in thenondilated descending and sigmoid colon. Paucity of small bowel gas. No free air. Imaged segments of lung basesclear. Stent at the left upper quadrant stable position. IMPRESSION No small bowel obstruction. Enteric contrast column within thenondilated descending and sigmoid colon. Thank you for letting us participate in the care of this patient. If youare a health care provider and have any questions regarding this report,please contact the number below. For patients who have questions please contactthe health intensive care unit registered nurse that requested your imaging first. Electronically signed by: Evelin Mendez MD, [facility]([phone]), at 04/02/2024 8:44 AM Emerson Ayala MD IMG DX ORDERABLES * (ABNORMAL) Differential, Automated (04/02/2024 3:28 AM EDT) Neutrophils % 73.2 % [facility] Neutr Abs (ANC) 6.20(H) 1.70 - 6.10 x10(3)/mc L [facility] Lymphocytes % 18.9 % [facility] Lymphocytes Abs 1.6 0.9 - 3.2 x10(3)/mc L [facility] Monocytes % 6.8 % [facility] Monocyte Abs 0.6 0.3 - 0.9 x10(3)/[facility] Eosinophils % 0.4 % [facility] Eosinophils Abs 0.0 0.0 - 0.4 x10(3)/[facility] Basophils % 0.2 % [facility] Basophils Abs 0.0 0.0 - 0.1 x10(3)/[facility] Immature Gran % 0.50 % [facility] Comment: Immature granulocytes(IG's)percentage and absolute count will include metamyelocytes, myelocytes, and promyelocytes. Blood smears from CBCs yielding IG's will be scanned manually for concordance. If this scan disagrees with the automated IG or if promyelocytes are noted, a manual differential will be performed. [place] Gran Abs 0.04 0.00 - 0.04 x10(3)/[facility] Blood 04/02/2024 3:28 AM EDT 04/02/2024 4:18 AM EDT Narrative Resulting Agency Comment Spec In Lab Emerson Ayala MD HEMATOLOGY ORDERAB LES [facility] [place] [address] * (ABNORMAL) Hemogram (04/02/2024 3:28 AM EDT) WBC 8.5 4.0 - 9.5 x10(3)/[facility] RBC 4.59 4.58 - 5.54 x10(6)/[facility] Hemoglobin 13.6(L) 13.7 - 16.5 g/dL [facility] Hematocrit 41.1 40.5 - 48.5 % [facility] MCV 89.5 82.9 - 93.1 fL [facility] MCH 29.6 27.5 - 32.1 pg [facility] MCHC 33.1 32.0 - 35.7 g/dL [facility] Platelets 244 145 - 357 x10(3)/[facility] RDWSD 43.8 36.0 - 45.0 fL [facility] RDWCV 13.3 11.4 - 13.8 % [facility] MPV 9.3 7.6 - 12.9 fL [facility] nRBC % Auto 0.0 % [facility] nRBC Abs Auto 0.000 0.000 - 0.000 x10(3)/[facility] Blood 04/02/2024 3:28 AM EDT 04/02/2024 4:18 AM EDT Narrative Resulting Agency Comment Spec In Lab Emerson Ayala MD HEMATOLOGY ORDERAB LES [facility] [place] [address] * (ABNORMAL) Comprehensive metabolic panel (non-fasting) (04/02/2024 3:28 AM EDT) Glucose Lvl 128 65 - 199 mg/dL [facility] Comment:Diabetes: >=200 mg/d L plus symptoms BUN 7(L) 10 - 20 mg/dL [facility] Creatinine 0.44(L) 0.80 - 1.50 mg/dL [facility] Sodium 142 135 - 145 mmol/L [facility] Potassium 2.7(Criti citlali) 3.5 - 5.0 mmol/L [facility] Comment: Called by: , Read back by: PANCHITO AHUJA, Date/Time:04/02/24 04:58. Please note: ??Patients with WBC >100,000 may have falsely elevated Potassium levels. ??For accurate Potassium quantification in these patients send serum separator tube (gold top) for subsequent determinations. ??Contact the Clinical Chemistry Laboratory if there are any questions. Chloride 102 98 - 107 mmol/L [facility] CO2 30 22 - 31 mmol/L [facility] Anion Gap 10 5 - 15 mmol/L [facility] Calcium 8.0(L) 8.5 - 10.5 mg/dL [facility] Total Protein 5.1(L) 6.1 - 8.0 g/dL [facility] Albumin 2.5(L) 3.2 - 5.2 g/dL [facility] AST 14 0 - 39 unit/L [facility] ALT 13 0 - 55 unit/L [facility] Alk Phos 94 40 - 130 unit/L [facility] Total Bilirubin 0.6 0.2 - 1.3 mg/dL [facility] [facility] Estimated GFR 128 >=60 mL/min/1. 73 m?? [facility] Comment: This patient's [...] and symptoms in addition to eGFR. Blood 04/02/2024 3:28 AM EDT 04/02/2024 4:18 AM EDT Narrative Resulting Agency Comment Spec In Lab Emerson Ayala MD CHEMISTRY ORDERABL ES [facility] [place] [address] * XR Abdomen 1 view Contrast Challenge (04/01/2024 11:15 PM EDT) WORKSTATION ID [id number] RAD Anatomical Region Laterality Modality Abdomen N/A Digital Radiogra phy Impressions 04/02/2024 8:44 AM EDT No small bowel obstruction. Enteric contrast column within the nondilated descending and sigmoid colon. Thank you for letting us participate in the care of this patient. ??If you are a health care provider and have any questions regarding this report, please contact the number below. ??For patients who have questions please contact the health intensive care unit registered nurse that requested your imaging first. ? Electronically signed by: Evelin Mendez MD, [facility] ([phone]), at 04/02/2024 8:44 AM Narrative 04/02/2024 8:44 AM EDT EXAMINATION: XR ABDOMEN 1 VIEW FOR CONTRAST CHALLENGE, XR ABDOMEN 1 VIEW FOR CONTRAST CHALLENGE CLINICAL HISTORY: follow up to contrast challenge TECHNIQUE: Supine abdomen April 01, 2024 2323 hours and April 02, 2024 at 0535 hours COMPARISON: April 01, 2024 at 1654 hours FINDINGS: Initial study demonstrates contrast column has become dilute and passed into the distal large bowel. Second study shows stable position of the contrast column in the nondilated descending and sigmoid colon. Paucity of small bowel gas. No free air. Imaged segments of lung bases clear. Stent at the left upper quadrant stable position. Procedure Note Evelin Mendez MD - 04/02/2024 EXAMINATION: XR ABDOMEN 1 VIEW FOR CONTRAST CHALLENGE, XR ABDOMEN 1 VIEWFOR CONTRAST CHALLENGE CLINICAL HISTORY: follow up to contrast challenge TECHNIQUE: Supine abdomen April 01, 2024 2323 hours and April 02, 2024 at 0535 hours COMPARISON: April 01, 2024 at 1654 hours FINDINGS: Initial study demonstrates contrast column has become dilute and passedinto the distal large bowel. Second study shows stable position of the contrast column in thenondilated descending and sigmoid colon. Paucity of small bowel gas. No free air. Imaged segments of lung basesclear. Stent at the left upper quadrant stable position. IMPRESSION No small bowel obstruction. Enteric contrast column within thenondilated descending and sigmoid colon. Thank you for letting us participate in the care of this patient. If youare a health care provider and have any questions regarding this report,please contact the number below. For patients who have questions please contactthe health intensive care unit registered nurse that requested your imaging first. Electronically signed by: Evelin Mendez MD, [facility]([phone]), at 04/02/2024 8:44 AM Emerson Ayala MD IMG DX ORDERABLES * XR Abdomen 1 view Contrast Challenge (04/01/2024 4:58 PM EDT) WORKSTATION ID [id number] RAD Anatomical Region Laterality Modality Abdomen N/A Digital Radiogra phy Impressions 04/01/2024 5:12 PM EDT No radiographic evidence of obstruction. ??Paucity of small bowel gas. ??Oral contrast scattered throughout the large bowel and rectum. Thank you for letting us participate in the care of this patient. ??If you are a health care provider and have any questions regarding this report, please contact the number below. ??For patients who have questions please contact the health intensive care unit registered nurse that requested your imaging first. ? Electronically signed by: Paul Rodriguez DO, [facility] ([phone]), at 04/01/2024 5:12 PM Narrative 04/01/2024 5:12 PM EDT EXAMINATION: XR ABDOMEN 1 VIEW FOR CONTRAST CHALLENGE CLINICAL HISTORY: 53-year-old male with pancreatic mass. ??Difficulty eating food. TECHNIQUE: 5 radiographs of the abdomen were obtained. COMPARISON: Correlation is made to CT of the abdomen and pelvis dated March 25, 2024. FINDINGS: The visualized lung bases are clear. There is a stent overlying the left upper quadrant superior abdomen, presumably within the duodenum. ??This is narrowed along its central component, likely adjacent to the known infiltrative mass centered in the pancreas. There is a paucity of small bowel gas. ??There are no dilated segments of large or small bowel. ??Oral contrast is seen within the large bowel. ??No oral contrast is present within the small bowel. Supine technique limits evaluation; however, there is no gross pneumoperitoneum. There are no abnormal calcifications within the abdomen and pelvis. There are mild degenerative changes of bilateral sacroiliac joints. Procedure Note Paul Rodriguez DO - 04/01/2024 EXAMINATION: XR ABDOMEN 1 VIEW FOR CONTRAST CHALLENGE CLINICAL HISTORY: 53-year-old male with pancreatic mass. Difficultyeating food. TECHNIQUE: 5 radiographs of the abdomen were obtained. COMPARISON: Correlation is made to CT of the abdomen and pelvis dated 2023. FINDINGS: The visualized lung bases are clear. There is a stent overlying the left upper quadrant superior abdomen,presumably within the duodenum. This is narrowed along its central component,likely adjacent to the known infiltrative mass centered in the pancreas. There is a paucity of small bowel gas. There are no dilated segments oflarge or small bowel. Oral contrast is seen within the large bowel. No oralcontrast is present within the small bowel. Supine technique limits evaluation; however, there is no grosspneumoperitoneum. There are no abnormal calcifications within the abdomen and pelvis. There are mild degenerative changes of bilateral sacroiliac joints. IMPRESSION No radiographic evidence of obstruction. Paucity of small bowel gas.Oral contrast scattered throughout the large bowel and rectum. Thank you for letting us participate in the care of this patient. If youare a health care provider and have any questions regarding this report,please contact the number below. For patients who have questions please contactthe health intensive care unit registered nurse that requested your imaging first. Electronically signed by: Paul Rodriguez DO [facility]([phone]), at 04/01/2024 5:12 PM Emerson Ayala MD IMG DX ORDERABLES * Phosphorus (04/01/2024 4:07 PM EDT) Phosphorus 2.9 2.5 - 4.5 mg/dL [facility] Blood 04/01/2024 4:07 PM EDT 04/01/2024 4:13 PM EDT Narrative Resulting Agency Comment Spec In Lab Emerson Ayala MD CHEMISTRY ORDERABL ES Performing Organization Address [facility]/ZIP Co de Phone Number [facility] [place] [address] * Magnesium (04/01/2024 4:07 PM EDT) Pathologist [facility] Magnesium 0.73 0.69 - 1.07 mmol/L [facility] Blood 04/01/2024 4:07 PM EDT 04/01/2024 4:13 PM EDT Narrative Resulting Agency Comment Spec In Lab Emerson Ayala MD CHEMISTRY ORDERABL ES Performing Organization Address [facility]/ZIP Co de Phone Number [facility] [place] [place] [address] * (ABNORMAL) Basic Metabolic Panel (non-fasting) (04/01/2024 4:07 PM EDT) Pathologist [facility] Glucose Lvl 76 65 - 199 mg/dL [facility] Comment:Diabetes: >=200 mg/d L plus symptoms BUN 7(L) 10 - 20 mg/dL [facility] Creatinine 0.56(L) 0.80 - 1.50 mg/dL [facility] Sodium 146(H) 135 - 145 mmol/L [facility] Potassium 3.6 3.5 - 5.0 mmol/L [facility] Comment: Please note: ??Patients with WBC >100,000 may have falsely elevated Potassium levels. ??For accurate Potassium quantification in these patients send serum separator tube (gold top) for subsequent determinations. ??Contact the Clinical Chemistry Laboratory if there are any questions. Chloride 101 98 - 107 mmol/L [facility] CO2 31 22 - 31 mmol/L [facility] Anion Gap 14 5 - 15 mmol/L [facility] Calcium 8.5 8.5 - 10.5 mg/dL [facility] Estimated GFR 119 >=60 mL/min/1. 73 m?? [facility] Comment: This patient's [...] and symptoms in addition to eGFR. Blood 04/01/2024 4:07 PM EDT 04/01/2024 4:13 PM EDT Narrative Resulting Agency Comment Spec In Lab Emerson Ayala MD CHEMISTRY ORDERABL ES [facility] [place] [place] [address] * Differential, Automated (04/01/2024 4:51 AM EDT) Neutrophils % 72.9 % [facility] Neutr Abs (ANC) 5.77 1.70 - 6.10 x10(3)/[facility] Lymphocytes % 19.2 % [facility] Lymphocytes Abs 1.5 0.9 - 3.2 x10(3)/[facility] Monocytes % 6.9 % [facility] Monocyte Abs 0.6 0.3 - 0.9 x10(3)/[facility] Eosinophils % 0.5 % [facility] Eosinophils Abs 0.0 0.0 - 0.4 x10(3)/[facility] Basophils % 0.1 % [facility] Basophils Abs 0.0 0.0 - 0.1 x10(3)/[facility] Immature Gran % 0.40 % [facility] Comment: Immature granulocytes(IG's)percentage and absolute count will include metamyelocytes, myelocytes, and promyelocytes. Blood smears from CBCs yielding IG's will be scanned manually for concordance. If this scan disagrees with the automated IG or if promyelocytes are noted, a manual differential will be performed. [place] Gran Abs 0.03 0.00 - 0.04 x10(3)/[facility] Blood 04/01/2024 4:51 AM EDT 04/01/2024 5:44 AM EDT Narrative Resulting Agency Comment Spec In Lab Emerson Ayala MD HEMATOLOGY ORDERAB LES Performing Organization Address City/State/[facility] Co de Phone Number [facility] [place] [address] * Hemogram (04/01/2024 4:51 AM EDT) WBC 7.9 4.0 - 9.5 x10(3)/[facility] RBC 4.71 4.58 - 5.54 x10(6)/[facility] Hemoglobin 13.8 13.7 - 16.5 g/dL [facility] Hematocrit 42.7 40.5 - 48.5 % [facility] MCV 90.7 82.9 - 93.1 fL [facility] MCH 29.3 27.5 - 32.1 pg [facility] MCHC 32.3 32.0 - 35.7 g/dL [facility] Platelets 281 145 - 357 x10(3)/[facility] RDWSD 43.3 36.0 - 45.0 fL [facility] RDWCV 13.1 11.4 - 13.8 % [facility] MPV 8.9 7.6 - 12.9 fL [facility] nRBC % Auto 0.0 % [facility] nRBC Abs Auto 0.000 0.000 - 0.000 x10(3)/mcL [facility] Blood 04/01/2024 4:51 AM EDT 04/01/2024 5:44 AM EDT Narrative Resulting Agency Comment Spec In Lab Emerson Ayala MD HEMATOLOGY ORDERAB LES [facility] [place] [place] [address] * (ABNORMAL) Comprehensive metabolic panel (non-fasting) (04/01/2024 4:51 AM EDT) Glucose Lvl 71 65 - 199 mg/dL [facility] Comment:Diabetes: >=200 mg/d L plus symptoms BUN 6(L) 10 - 20 mg/dL [facility] Creatinine 0.57(L) 0.80 - 1.50 mg/dL [facility] Sodium 143 135 - 145 mmol/L [facility] Potassium 2.8(Criti citlali) 3.5 - 5.0 mmol/L [facility] Comment: Called by: , Read back by: Marissa Wong, Date/Time:04/01/24 06:40. Please note: ??Patients with WBC >100,000 may have falsely elevated Potassium levels. ??For accurate Potassium quantification in these patients send serum separator tube (gold top) for subsequent determinations. ??Contact the Clinical Chemistry Laboratory if there are any questions. Chloride 99 98 - 107 mmol/L [facility] CO2 30 22 - 31 mmol/L [facility] Anion Gap 14 5 - 15 mmol/L [facility] Calcium 8.2(L) 8.5 - 10.5 mg/dL [facility] Total Protein 5.1(L) 6.1 - 8.0 g/dL [facility] Albumin 2.6(L) 3.2 - 5.2 g/dL [facility] AST 18 0 - 39 unit/L [facility] ALT 13 0 - 55 unit/L [facility] Alk Phos 100 40 - 130 unit/L [facility] Total Bilirubin 0.8 0.2 - 1.3 mg/dL [facility] Estimated GFR 119 >=60 mL/min/1. 73 m?? [facility] Comment: This patient's [...] and symptoms in addition to eGFR. Blood 04/01/2024 4:51 AM EDT 04/01/2024 5:44 AM EDT Narrative Resulting Agency Comment Spec In Lab Emerson Ayala MD CHEMISTRY ORDERABL ES [facility] [place] [place] [address] * CT Chest wo Contrast (Generic) (03/31/2024 5:35 PM EDT) WORKSTATION ID [id number] RAD Anatomical Region Laterality Modality Chest Computed Tomogra phy Impressions 04/01/2024 8:45 AM EDT No evidence for intrathoracic metastasis Thank you for letting us participate in the care of this patient. ??If you are a health care provider and have any questions regarding this report, please contact the number below. ??For patients who have questions please contact the health intensive care unit registered nurse that requested your imaging first. ? Electronically signed by: Armin Marie MD, [facility] ??([phone]), at 04/01/2024 8:45 AM Narrative 04/01/2024 8:45 [...] patients who have questions please contactthe health intensive care unit registered nurse that requested your imaging first. Emerson Ayala MD IMG CT ORDERABLES * Request For 2nd Read CT Abdomen & Pelvis (03/31/2024 5:05 PM EDT) [employer] Signature WORKSTATION ID [id number] RAD Anatomical Region Laterality Modality Abdomen, Pelvis [...] who have questions please contact the health intensive care unit registered nurse that requested your imaging first. ? Electronically signed by: CHRYSATL RODRIGUEZ MD, [facility] ([phone]), at 04/01/2024 8:51 AM Narrative 04/01/2024 8:51 AM EDT EXAMINATION: REQUEST FOR 2ND READ CT ABDOMEN AND PELVIS CLINICAL HISTORY: pancreatic cancer -needed for staging purpose, please compare to 12/15/23 CT; Sending Institution [facility]; Date of exam [id number]; I believe a reinterpretation of this exam may alter care of Patient. Yes TECHNIQUE: Helical CT of the abdomen and pelvis following the intravenous administration of contrast at [facility] on 03/25/2024 and submitted for reinterpretation. [...] purpose, pleasecompare to 12/15/23 CT; Sending Institution [facility]; Date of exam [id number]; I believe a reinterpretation of this exam may alter care ofPatient. Yes TECHNIQUE: Helical CT of the abdomen and pelvis following theintravenous administration of contrast at [facility] on 03/25/2024 andsubmitted for reinterpretation. COMPARISON: [...] patients who have questions please contactthe health intensive care unit registered nurse that requested your imaging first. Electronically signed by: CHRYSTAL RODRIGUEZ MD, [facility]([phone]), at 04/01/2024 8:51 AM Emerson Ayala MD IMG OUTSIDE INTERP RETATION ORDERABLES * XR ERCP (03/31/2024 12:37 PM EDT) Narrative [facility] - 03/31/2024 12:37 PM EDT See PACS for result report. Emerson Ayala MD IMJohn FILM LIBRARY O RDERABLES [place], [place] * (ABNORMAL) Non-Roll On Worker Final Report (03/31/2024 11:12 AM EDT) Non-Roll On Worker Final Report [id number] ? Location: L1WD; 0104; A The signing pathologist has (i) examined the relevant preparation(s) for the specimen(s) and (ii) rendered or confirmed the diagnosis(es). . ? Non-Roll On Worker Final DIAGNOSIS Positive for Malignancy Electronically signed by: ?Yony HERNANDEZ, Zane Swenson Verified: ??04/02/2024 13:17 ??Cytopathologist Performed at: ??-[facility], [place] [address] Tank Washer: Madison Monreal MD, AP, ??CLIA Certificate: [id number] DISCUSSION Pancreas: uncinate (EUS-guided FNA) - Adenocarcinoma. [...] The assay was performed according to the molding process technician's instructions using anti-MLH-1 (ES05), anti-MSH-2 ([id number]), anti-MSH-6 (44), and anti-PMS-2 (MRQ-28) antibodies. THIS [...] see Diagnosis and Discussion for final interpretation.(A) [facility] 03/31/2024 11:1 2 AM EDT Alan Silva MD PATHOLOGY/CYTOLOGY ORDERABLES Performing Organization Address [facility] [place] [address] * Cytopathology Non-Gynecological (03/31/2024 11:12 AM EDT) AP Specimen 03/31/2024 11:1 2 AM EDT 03/31/2024 11:12 AM EDT Narrative [facility] - 03/31/2024 11:12 AM EDT Specimen requisition ordered. ??Separate Pathology report to follow Alan Silva MD PATHOLOGY/CYTOLOGY ORDERABLES Performing Organization Address [facility] [place] [address] * UPPER EUS-ENDOSCOPIC ULTRASOUND (03/31/2024 9:53 AM EDT) UPPER ENDOSCOPIC ULTRASOUND [facility] Procedure Date: 03/31/2024 9:53 AM ? Patient Name: Dylan Michele ? Date of : 1970 ? Age: 53 ? Order #: [id number] ? Instrument Name: [id number] ? Procedure: ? Upper EUS Indications: ? Suspected mass in pancreas on CT ? scan, signs/symptoms of malignant ? gastric outlet obstruction Providers: ? Eulogio Marcos MD, Alan Torres ? Yodit Silva Glenn G. ? SAM Holden, Madelaine Bower MD: ?Cedric Rosenbaum MD, Anna ? Emerson Alvarado Medicines: ? Monitored Anesthesia Care Complications: ? [...] the ? physician, the nurse, the ? outside sales inspector and the certified appliance service technician. The ? procedure was verified [...] care under ? the supervision of a CUSTOMER SERVICE SALES CONSULTANT was ? determined to be medically ? [...] were ? made with the 22 gauge [employer] biopsy needle using ? a transduodenal approach. [...] GENERAL SURGICAL ORD ERABLES Performing Organization Address City/[facility] Co de Phone Number [employer] * Phosphorus (03/31/2024 4:09 AM EDT) Phosphorus 3.6 2.5 - 4.5 mg/dL [facility] Blood Venous Draw / Unknown 03/31/2024 4:09 AM EDT 03/31/2024 4:23 AM EDT Narrative Resulting Agency Comment Spec In Lab Emerson Ayala MD CHEMISTRY ORDERABL ES Performing Organization Address [facility] Co de Phone Number [facility] [place] [place] [address] * Magnesium (03/31/2024 4:09 AM EDT) Magnesium 0.69 0.69 - 1.07 mmol/L [facility] Blood Venous Draw / Unknown 03/31/2024 4:09 AM EDT 03/31/2024 4:23 AM EDT Narrative Resulting Agency Comment Spec In Lab Emerson Ayala MD CHEMISTRY ORDERABL ES Performing Organization Address City/[facility]/[place] [address] * Differential, Automated (03/31/2024 4:09 AM EDT) Neutrophils % 61.8 % [facility] Neutr Abs (ANC) 3.94 1.70 - 6.10 x10(3)/[facility] Lymphocytes % 30.9 % [facility] Lymphocytes Abs 2.0 0.9 - 3.2 x10(3)/[facility] Monocytes % 6.1 % [facility] Monocyte Abs 0.4 0.3 - 0.9 x10(3)/[facility] Eosinophils % 0.6 % [facility] Eosinophils Abs 0.0 0.0 - 0.4 x10(3)/[facility] Basophils % 0.3 % [facility] Basophils Abs 0.0 0.0 - 0.1 x10(3)/[facility] Immature Gran % 0.30 % [facility] Comment: Immature granulocytes(IG's)percentage and absolute count will include metamyelocytes, myelocytes, and promyelocytes. Blood smears from CBCs yielding IG's will be scanned manually for concordance. If this scan disagrees with the automated IG or if promyelocytes are noted, a manual differential will be performed. [place] Gran Abs 0.02 0.00 - 0.04 x10(3)/[facility] Blood 03/31/2024 4:09 AM EDT 03/31/2024 4:21 AM EDT Narrative Resulting Agency Comment Spec In Lab Emerson Ayala MD HEMATOLOGY ORDERAB LES Performing Organization Address City/[facility]/ZIP Co de Phone Number [facility] [place] [place] [address] * Hemogram (03/31/2024 4:09 AM EDT) WBC 6.4 4.0 - 9.5 x10(3)/[facility] RBC 4.78 4.58 - 5.54 x10(6)/[facility] Hemoglobin 14.3 13.7 - 16.5 g/dL [facility] Hematocrit 42.7 40.5 - 48.5 % [facility] MCV 89.3 82.9 - 93.1 fL [facility] MCH 29.9 27.5 - 32.1 pg [facility] MCHC 33.5 32.0 - 35.7 g/dL [facility] Platelets 263 145 - 357 x10(3)/[facility] RDWSD 43.3 36.0 - 45.0 [facility] RDWCV 13.1 11.4 - 13.8 % [facility] MPV 8.5 7.6 - 12.9 [facility] nRBC % Auto 0.0 % [facility] nRBC Abs Auto 0.000 0.000 - 0.000 x10(3)/[facility] Blood 03/31/2024 4:09 AM EDT 03/31/2024 4:21 AM EDT Narrative Resulting Agency Comment Spec In Lab Emerson Ayala MD HEMATOLOGY ORDERAB LES [facility] [place] [place] [address] * (ABNORMAL) Comprehensive metabolic panel (non-fasting) (03/31/2024 4:09 AM EDT) Pathologist [facility] Glucose Lvl 79 65 - 199 mg/dL [facility] Comment:Diabetes: >=200 mg/d L plus symptoms BUN 6(L) 10 - 20 mg/dL [facility] Creatinine 0.58(L) 0.80 - 1.50 mg/dL [facility] Sodium 143 135 - 145 mmol/L [facility] Potassium 3.1(L) 3.5 - 5.0 mmol/L [facility] Comment: Please note: ??Patients with WBC >100,000 may have falsely elevated Potassium levels. ??For accurate Potassium quantification in these patients send serum separator tube (gold top) for subsequent determinations. ??Contact the Clinical Chemistry Laboratory if there are any questions. Chloride 98 98 - 107 mmol/L [facility] CO2 34(H) 22 - 31 mmol/L [facility] Anion Gap 11 5 - 15 mmol/L [facility] Calcium 8.1(L) 8.5 - 10.5 mg/dL [facility] Total Protein 5.2(L) 6.1 - 8.0 g/dL [facility] Albumin 2.5(L) 3.2 - 5.2 g/dL [facility] Comment:result rechecked-HT AST 15 0 - 39 unit/L [facility] ALT 11 0 - 55 unit/L [facility] Alk Phos 104 40 - 130 unit/L [facility] Total Bilirubin 0.6 0.2 - 1.3 mg/dL [facility] Estimated GFR 118 >=60 mL/min/1. 73 m?? [facility] Comment: This patient's [...] and symptoms in addition to eGFR. Blood 03/31/2024 4:09 AM EDT 03/31/2024 4:21 AM EDT Narrative Resulting Agency Comment Spec In Lab Emerson Ayala MD CHEMISTRY ORDERABL ES Performing Organization Address [facility] Co de Phone Number [facility] [facility] [place] [address] * (ABNORMAL) Urinalysis Microscopic Exam (03/30/2024 4:45 AM EDT) RBC UA 1 0 - 3 /HPF [facility] WBC UA 8(H) 0 - 3 /HPF [facility] Bacteria UA Rare(A) None /HPF [facility] Comment: Interpret results with caution, microscopic results are from suboptimal specimen volume Squam Epith UA 1 <=4 /HPF [facility] Hyaline Cast UA 5(H) 0 - 2 /LPF [facility] Clean Catch Urine 03/30/2024 4:45 AM EDT 03/30/2024 5:20 AM EDT Narrative Resulting Agency Comment Spec In Lab Dereje TONEY URINE ORDERABLES Performing Organization Address [facility] Co de Phone Number [facility] [place] [address] * (ABNORMAL) Urinalysis with reflex Culture (03/30/2024 4:45 AM EDT) Glucose UA Negative Negative mg/dL [facility] Protein UA 30(A) Negative mg/dL [facility] Bilirubin UA Small(A) Negative mg/dL [facility] Comment: Clinical correlation required for positive Urine Bilirubin results as false positive may occur with some drugs and drug related products. If a false positive is suspected a serum total bilirubin should be considered if clinically indicated. Urobilinogen UA Normal Normal mg/dL [facility] pH UA 8.5(H) 5.0 - 8.0 [facility] Blood UA Negative Negative mg/dL [facility] Ketones UA 15(A) Negative mg/dL [facility] Nitrite UA Negative Negative [facility] Leukocytes UA Negative Negative mcL [facility] Appearance UA Clear Clear [facility] Spec Liscomb UA 1.019 1.005 - 1.030 [facility] Color UA Dark Yellow Yellow [facility] Culture Reflexed No [facility] Clean Catch Urine 03/30/2024 4:45 AM EDT 03/30/2024 5:20 AM EDT Narrative Resulting Agency Comment Spec In Lab Sanna Conner MD URINE ORDERABLES Performing Organization Address [facility] Co de Phone Number [facility] [place] [address] * CEA (03/30/2024 4:10 AM EDT) CEA 2.1 <=3.8 ng/mL [facility] Comment: Reference range: ??(20-69 years): Non-smoker: [...] MD CHEMISTRY ORDERABL ES Performing Organization Address City/[facility]/ZIP Co de Phone Number [facility] [place] [address] * (ABNORMAL) Carbohydrate Antigen 19-9 (03/30/2024 4:10 AM EDT) CA 19-9 193.0(H) <=35.0 u/ml [facility] Comment: This result was generated using a Mychal Rosa Elena immunoassay. ??Results obtained from other methods or manufacturers cannot be used interchangeably with this method. Blood Venous Draw / Unknown 03/30/2024 4:10 AM EDT 03/30/2024 4:31 AM EDT Narrative Resulting Agency Comment Spec In Lab Emerson Ayala MD CHEMISTRY ORDERABL ES [facility] [place] [address] * Differential, Automated (03/30/2024 4:10 AM EDT) Neutrophils % 61.2 % [facility] Neutr Abs (ANC) 3.91 1.70 - 6.10 x10(3)/[facility] Lymphocytes % 28.2 % [facility] Lymphocytes Abs 1.8 0.9 - 3.2 x10(3)/[facility] Monocytes % 9.6 % [facility] Monocyte Abs 0.6 0.3 - 0.9 x10(3)/[facility] Eosinophils % 0.5 % [facility] Eosinophils Abs 0.0 0.0 - 0.4 x10(3)/[facility] Basophils % 0.3 % [facility] Basophils Abs 0.0 0.0 - 0.1 x10(3)/[facility] Immature Gran % 0.20 % [facility] Comment: Immature granulocytes(IG's)percentage and absolute count will include metamyelocytes, myelocytes, and promyelocytes. Blood smears from CBCs yielding IG's will be scanned manually for concordance. If this scan disagrees with the automated IG or if promyelocytes are noted, a manual differential will be performed. [place] Gran Abs 0.01 0.00 - 0.04 x10(3)/[facility] Blood 03/30/2024 4:10 AM EDT 03/30/2024 4:29 AM EDT Narrative Resulting Agency Comment Spec In Lab Darren Dejesus MD HEMATOLOGY ORDERABL ES [facility] [place] [address] * Hemogram (03/30/2024 4:10 AM EDT) WBC 6.4 4.0 - 9.5 x10(3)/[facility] RBC 4.87 4.58 - 5.54 x10(6)/[facility] Hemoglobin 14.5 13.7 - 16.5 g/dL [facility] Hematocrit 42.9 40.5 - 48.5 % [facility] MCV 88.1 82.9 - 93.1 [facility] MCH 29.8 27.5 - 32.1 pg [facility] MCHC 33.8 32.0 - 35.7 g/dL [facility] Platelets 286 145 - 357 x10(3)/[facility] RDWSD 41.7 36.0 - 45.0 [facility] RDWCV 12.9 11.4 - 13.8 % [facility] MPV 8.7 7.6 - 12.9 [facility] nRBC % Auto 0.0 % [facility] nRBC Abs Auto 0.000 0.000 - 0.000 x10(3)/[facility] Blood 03/30/2024 4:10 AM EDT 03/30/2024 4:29 AM EDT Narrative Resulting Agency Comment Spec In Lab Darren Dejesus MD HEMATOLOGY ORDERABL ES [facility] [place] [address] * (ABNORMAL) Prealbumin (03/30/2024 4:10 AM EDT) Prealbumin 7(L) 20 - 40 mg/dL [facility] Comment: Prealbumin levels are generally lower in the pediatric population; adult concentrations are usually attained near puberty. Blood 03/30/2024 4:10 AM EDT 03/30/2024 4:29 AM EDT Narrative Resulting Agency Comment Spec In Lab Marck Mckeon MD CHEMISTRY OR DERABLES Performing Organization Address [facility] Co de Phone Number [facility] [place] [address] * Hemoglobin A1c (03/30/2024 4:10 AM EDT) Hemoglobin A1C 5.2 4.3 - 5.6 % [facility] Comment: Reference Range: 4.3 - 5.6% [...] 1, S67-74 Est Avg Gluc 104 mg/dL [facility] Blood 03/30/2024 4:10 AM EDT 03/30/2024 4:29 AM EDT Narrative Resulting Agency Comment Spec In Lab Pennie Jiménez MD CHEMISTRY ORDERABLES Performing Organization Address [facility] Co de Phone Number [facility] [place] [address] * Phosphorus (03/30/2024 4:10 AM EDT) Phosphorus 2.6 2.5 - 4.5 mg/dL [facility] Blood 03/30/2024 4:10 AM EDT 03/30/2024 4:29 AM EDT Narrative Resulting Agency Comment Spec In Lab Pennie Jiménez MD CHEMISTRY ORDERABLES [facility] [place] [address] * Magnesium (03/30/2024 4:10 AM EDT) Pathologist [facility] Magnesium 0.74 0.69 - 1.07 mmol/L [facility] Blood 03/30/2024 4:10 AM EDT 03/30/2024 4:29 AM EDT Narrative Resulting Agency Comment Spec In Lab Pennie Jiménez MD CHEMISTRY ORDERABLES Performing Organization Address [facility] Co de Phone Number [facility] [place] [address] * (ABNORMAL) Basic Metabolic Panel (non-fasting) (03/30/2024 4:10 AM EDT) [facility] Glucose Lvl 86 65 - 199 mg/dL [facility] Comment:Diabetes: >=200 mg/d L plus symptoms BUN 5(L) 10 - 20 mg/dL [facility] Creatinine 0.59(L) 0.80 - 1.50 mg/dL [facility] Sodium 145 135 - 145 mmol/L [facility] Potassium 3.5 3.5 - 5.0 mmol/L [facility] Comment: Please note: ??Patients with WBC >100,000 may have falsely elevated Potassium levels. ??For accurate Potassium quantification in these patients send serum separator tube (gold top) for subsequent determinations. ??Contact the Clinical Chemistry Laboratory if there are any questions. Chloride 98 98 - 107 mmol/L [facility] CO2 38(H) 22 - 31 mmol/L [facility] Anion Gap 9 5 - 15 mmol/L [facility] Calcium 8.1(L) 8.5 - 10.5 mg/dL [facility] Estimated GFR 117 >=60 mL/min/1. 73 m?? [facility] Comment: This patient's [...] and symptoms in addition to eGFR. Blood 03/30/2024 4:10 AM EDT 03/30/2024 4:29 AM EDT Narrative Resulting Agency Comment Spec In Lab Pennie Jiménez MD CHEMISTRY ORDERABLES [facility] [place] [address] * XR Chest One View (03/29/2024 9:34 PM EDT) [employer] WORKSTATION ID [id number] RAD Anatomical Region Laterality Modality Chest N/A [...] who have questions please contact the health intensive care unit registered nurse that requested your imaging first. ? Electronically signed by: Kelsie Goodman MD, [facility] ([phone]), at 03/29/2024 10:36 PM Narrative 03/29/2024 10:36 [...] patients who have questions please contactthe health intensive care unit registered nurse that requested your imaging first. Electronically signed by: Kelsie Goodman MD, [facility]([phone]), at 03/29/2024 10:36 PM Bernarda Martinez MD IMG DX ORDERABLES * (ABNORMAL) pro-Brain Natriuretic Peptide (03/29/2024 4:32 PM EDT) ProBNP 465(H) <=124 pg/mL [facility] Blood Venous Draw / Unknown 03/29/2024 4:32 PM EDT 03/29/2024 4:39 PM EDT Narrative Resulting Agency Comment Spec In Lab Ramonita Abbasi DO CHEMISTRY ORDERABL ES Performing Organization Address City/[facility]/ZIP Co de Phone Number [facility] [place] [address] * (ABNORMAL) Phosphorus (03/29/2024 4:32 PM EDT) Phosphorus 1.5(L) 2.5 - 4.5 mg/dL [facility] Blood Venous Draw / Unknown 03/29/2024 4:32 PM EDT 03/29/2024 4:39 PM EDT Narrative Resulting Agency Comment Spec In Lab Ramonita Abbasi DO CHEMISTRY ORDERABL ES Performing Organization Address [facility] Co de Phone Number [facility] [place] [address] * Magnesium (03/29/2024 4:32 PM EDT) Magnesium 0.89 0.69 - 1.07 mmol/L [facility] Blood Venous Draw / Unknown 03/29/2024 4:32 PM EDT 03/29/2024 4:39 PM EDT Narrative Resulting Agency Comment Spec In Lab Ramonita Abbasi DO CHEMISTRY ORDERABL ES Performing Organization Address City/[facility]/ZIP Co de Phone Number [facility] [place] [address] * Gold Tube HOLD (03/29/2024 4:32 PM EDT) Gold Hold Sample in lab. [facility] Blood Venous Draw / Unknown 03/29/2024 4:32 PM EDT 03/29/2024 4:38 PM EDT Dereje TONEY CHEMISTRY ORDERABLES Performing Organization Address City/[facility]/ZIP Co de Phone Number [facility] [place] [address] * Blue Tube HOLD (03/29/2024 4:32 PM EDT) Pathologist [facility] Blue Hold Sample in lab. [facility] Blood Venous Draw / Unknown 03/29/2024 4:32 PM EDT 03/29/2024 4:39 PM EDT Dereje TONEY HEMATOLOGY ORDERABLE S [facility] [place] [address] * (ABNORMAL) Differential, Automated (03/29/2024 4:32 PM EDT) [facility] Neutrophils % 68.4 % [facility] Neutr Abs (ANC) 7.16(H) 1.70 - 6.10 x10(3)/[facility] Lymphocytes % 22.7 % [facility] Lymphocytes Abs 2.4 0.9 - 3.2 x10(3)/[facility] Monocytes % 8.2 % [facility] Monocyte Abs 0.9 0.3 - 0.9 x10(3)/[facility] Eosinophils % 0.2 % [facility] Eosinophils Abs 0.0 0.0 - 0.4 x10(3)/[facility] Basophils % 0.2 % [facility] Basophils Abs 0.0 0.0 - 0.1 x10(3)/[facility] Immature Gran % 0.30 % [facility] Comment: Immature granulocytes(IG's)percentage and absolute count will include metamyelocytes, myelocytes, and promyelocytes. Blood smears from CBCs yielding IG's will be scanned manually for concordance. If this scan disagrees with the automated IG or if promyelocytes are noted, a manual differential will be performed. [place] Gran Abs 0.03 0.00 - 0.04 x10(3)/ L [facility] Blood 03/29/2024 4:32 PM EDT 03/29/2024 4:38 PM EDT Narrative Resulting Agency Comment Spec In Lab Dereje TONEY HEMATOLOGY ORDERABLE S [facility] [place] [address] * (ABNORMAL) Hemogram (03/29/2024 4:32 PM EDT) WBC 10.5(H) 4.0 - 9.5 x10(3)/[facility] RBC 5.40 4.58 - 5.54 x10(6)/[facility] Hemoglobin 16.1 13.7 - 16.5 g/dL [facility] Hematocrit 47.3 40.5 - 48.5 % [facility] MCV 87.6 82.9 - 93.1 [facility] MCH 29.8 27.5 - 32.1 pg [facility] MCHC 34.0 32.0 - 35.7 g/dL [facility] Platelets 398(H) 145 - 357 x10(3)/[facility] RDWSD 41.1 36.0 - 45.0 [facility] RDWCV 12.9 11.4 - 13.8 % [facility] MPV 8.5 7.6 - 12.9 [facility] nRBC % Auto 0.0 % [facility] nRBC Abs Auto 0.000 0.000 - 0.000 x10(3)/[facility] Blood 03/29/2024 4:32 PM EDT 03/29/2024 4:38 PM EDT Narrative Resulting Agency Comment Spec In Lab Dereje TONEY HEMATOLOGY ORDERABLE S [facility] [place] [address] * Lipase (03/29/2024 4:32 PM EDT) Lipase 14 0 - 60 unit/L [facility] Blood 03/29/2024 4:32 PM EDT 03/29/2024 4:38 PM EDT Narrative Resulting Agency Comment Spec In Lab Sanna Conner MD CHEMISTRY ORDERABLES [facility] [place] [address] * (ABNORMAL) Comprehensive metabolic panel (non-fasting) (03/29/2024 4:32 PM EDT) Glucose Lvl 91 65 - 199 mg/dL [facility] Comment:Diabetes: >=200 mg/d L plus symptoms BUN 4(L) 10 - 20 mg/dL [facility] Creatinine 0.57(L) 0.80 - 1.50 mg/dL [facility] Sodium 141 135 - 145 mmol/L [facility] Potassium 2.5(Criti citlali) 3.5 - 5.0 mmol/L [facility] Comment: Called by: [facility], Read back by: Jesus Manuel Barton, Date/Time:03/29/24 17:42. Please note: ??Patients with WBC >100,000 may have falsely elevated Potassium levels. ??For accurate Potassium quantification in these patients send serum separator tube (gold top) for subsequent determinations. ??Contact the Clinical Chemistry Laboratory if there are any questions. Chloride 91(L) 98 - 107 mmol/L [facility] CO2 40(H) 22 - 31 mmol/L [facility] Anion Gap 10 5 - 15 mmol/L [facility] Calcium 9.0 8.5 - 10.5 mg/dL [facility] Total Protein 6.3 6.1 - 8.0 g/dL [facility] Albumin 3.5 3.2 - 5.2 g/dL [facility] AST 20 0 - 39 unit/L [facility] ALT 15 0 - 55 unit/L [facility] Alk Phos 129 40 - 130 unit/L [facility] Total Bilirubin 0.9 0.2 - 1.3 mg/dL [facility] Estimated GFR 119 >=60 mL/min/1. 73 m?? [facility] Comment: This patient's [...] and symptoms in addition to eGFR. Blood 03/29/2024 4:32 PM EDT 03/29/2024 4:38 PM EDT Narrative Resulting Agency Comment Spec In Lab Sanna Conner MD CHEMISTRY ORDERABLES [facility] [place] [address] * Film Library- Storage Only CT Abdomen & Pelvis (03/25/2024 12:00 AM EDT) Narrative Dicom, Auditing User - 03/29/2024 9:14 PM EDT This exam is auto-finalizing. It's purpose is for storage only. Bernarda Martinez MD [facility] [place] [facility] [place] ERABLES * Film Library- Storage Only Ultrasound Study (03/11/2024 12:05 AM EDT) Narrative Dicom, Auditing User - 03/29/2024 9:54 PM EDT This exam is auto-finalizing. It's purpose is for storage only. Bernarda Martinez MD [facility] [place] [facility] [place] ER[place] * Film Library- Storage Only CT Chest (03/11/2024 12:00 AM EDT) Narrative Dicom, Auditing User - 03/29/2024 9:52 PM EDT This exam is auto-finalizing. It's purpose is for storage only. Bernarda Martinez MD [facility] [place] [place]D ERABLES * Film Library- Storage Only CT Abdomen & Pelvis (12/15/2023 12:00 AM EST) Narrative Dicom, Auditing User - 03/31/2024 4:56 PM EDT This exam is auto-finalizing. It's purpose is for storage only. Emerson Ayala MD [facility] [place] O RDERABLES documented in this encounter Visit Diagnoses Diagnosis Nausea & vomiting- Primary Nausea with vomiting Pancreatic mass Unspecified disease of pancreas documented in this encounter Admitting Diagnoses Diagnosis Nausea & vomiting Nausea with vomiting documented in this encounter Administered Medications Inactive Administered Medications - up to 3 most recent administrations Medication Order MAR Action Action Date Dose Rate Site alum-mag hydroxide-simeth (Maalox) (40 mg-40 mg-4 mg/mL) oral liquid 10 mL 10 mL, Oral, 3 TIMES DAILY PRN, Starting on Thu04/01/24 at 0948, Until Thu04/06/24 at 1440, Heartburn, Routine Given 04/06/2024 3:00 AM EDT 10 mLs Given 04/05/2024 7:46 PM EDT 10 mLs Given 04/05/2024 3:10 PM EDT 10 mLs carvediloL (Coreg) tablet 6.25 mg 6.25 mg, Oral, 2 TIMES DAILY WITH MEALS, First dose on Thu03/30/24 at 0900, Until Discontinued, Routine Given 04/06/2024 8:10 AM EDT 6.25 mg Given 04/05/2024 5:28 PM EDT 6.25 mg Given 04/05/2024 8:11 AM EDT 6.25 mg docusate sodium (Colace) capsule 100 mg 100 mg, Oral, 2 TIMES DAILY, First dose on Thu04/05/24 at 2100, Until Discontinued, Routine Given 04/06/2024 8:10 AM EDT 100 mg Given 04/06/2024 3:00 AM EDT 100 mg enoxaparin (Lovenox) (40 mg/0.4 mL) subcutaneous injection 40 mg 40 mg, Subcutaneous, NIGHTLY, First dose on Thu03/29/24 at 2252, Until Discontinued, Routine Given 04/05/2024 8:03 PM EDT 40 mg Given 04/04/2024 8:09 PM EDT 40 mg Given 04/03/2024 8:39 PM EDT 40 mg iohexoL (Omnipaque) (350 mg/mL) solution 100 mL 100 mL, Oral, ONCE PRN, 1 dose, Starting on Thu04/01/24 at 0949, Until Thu04/01/24 at 1046, Other, For contrast challenge X-ray series., Administer the Iohexol (undiluted) all at once.RN to page 9217 when contrast has been administered. Radiology to schedule first x-ray 6 hours after contrast is administered., Routine Given 04/01/2024 10:46 AM EDT 100 mLs lactated ringers infusion 75 mL/hr, Intravenous, CONTINUOUS, Starting on 04/02/24 at 1315, Until 04/02/24 at 1656, While administering potassium New Bag 04/02/2024 1:37 PM EDT 75 mL/hr 75 mL/h r lidocaine (Xylocaine) 1% (10 mg/mL) injection 3 mg 3 mg (0.3 mL), Subcutaneous, ONCE PRN, 1 dose, Starting on Thu03/29/24 at 2113, Until Thu04/06/24 at 1440, for discomfort with PIV insertion, Routine magnesium sulfate 2 g in sterile water 50 mL infusion 2 g, Intravenous, ONCE, 1 dose, On 04/03/24 at 0915, Administer over 120 Minutes New Bag 04/03/2024 8:59 AM EDT 2 g 25 mL/hr melatonin tablet 3 mg 3 mg, Oral, NIGHTLY PRN, Starting on Thu03/29/24 at 2247, Until Thu04/06/24 at 1440, Sleep, Sleep, Routine Given 04/05/2024 7:46 PM EDT 3 mg Given 04/04/2024 8:11 PM EDT 3 mg Given 04/03/2024 8:38 PM EDT 3 mg multivitamin with minerals (Thera M) tablet 1 tablet 1 tablet, Oral, DAILY, 10 doses, First dose on Thu03/30/24 at 1615, Last dose on Thu04/08/24 at 0900, Routine Given 04/06/2024 8:10 AM EDT 1 tablet Given 04/05/2024 8:15 AM EDT 1 tablet Given 04/04/2024 8:06 AM EDT 1 tablet ondansetron (pf) (Zofran) (2 mg/mL) injection 4 mg 4 mg, Intravenous, ONCE, 1 dose, On Thu03/29/24 at 2105, STAT Given 03/29/2024 9:05 PM EDT 4 mg ondansetron (pf) (Zofran) (2 mg/mL) injection 4 mg 4 mg, Intravenous, EVERY 8 HOURS PRN, Starting on Thu03/29/24 at 2248, Until Thu04/06/24 at 1440, Nausea, 4 mg,Oral,EVERY 8 HOURS PRN, Nausea,Vomiting If multiple antiemetics are ordered, use ondansetron first. May repeat times one in 30 minutes if ineffective. ondansetron ODT (Zofran-ODT) disintegrating tablet 4 mg 4 mg, Oral, EVERY 8 HOURS PRN, Starting on Thu03/29/24 at 2248, Until Thu04/06/24 at 1440, Nausea, If multiple antiemetics are ordered, use ondansetron first. PO Preferred. If patient unable to take PO, may give IV if ordered. May repeat times one in 45 minutes if ineffective. , Routine pantoprazole EC (Protonix) tablet 40 mg 40 mg, Oral, DAILY, First dose on Thu04/03/24 at 0900, Until Discontinued, DO NOT CRUSH OR OPEN, Routine Given 04/06/2024 8:10 AM EDT 40 mg Given 04/05/2024 8:16 AM EDT 40 mg Given 04/04/2024 8:06 AM EDT 40 mg potassium chloride 10 mEq in sterile water 100 mL infusion 10 mEq, Intravenous, EVERY HOUR, 6 doses, First dose on Thu03/29/24 at 1800, Last dose on Thu03/29/24 at 2300, Administer over 60 Minutes, For serum K less than 3.3 mMol/L - Give 10 mEq IV x six doses (60 mEq total) Serum potassium levels should be re-checked 1.5 hours after completion of last dose & prior to administration of any additional doses. Warning Vesicant/Irritant Medication New Bag 03/30/2024 3:03 AM EDT 10 mEq 100 mL/hr New Bag 03/30/2024 12:49 AM EDT 10 mEq 100 mL/hr New Bag 03/29/2024 11:29 PM EDT 10 mEq 100 mL/hr potassium chloride 10 mEq in sterile water 100 mL infusion 10 mEq, Intravenous, EVERY 2 HOURS, 3 doses, First dose on Margaret 03/31/24 at 0700, Last dose on Thu03/31/24 at 1100, Administer over 60 Minutes, Doses of 20 mEq or greater require a Central Line Warning Vesicant/Irritant Medication New Bag 03/31/2024 11:00 AM EDT 10 mEq 100 mL/hr New Bag 03/31/2024 8:22 AM EDT 10 mEq 100 mL/hr New Bag 03/31/2024 6:22 AM EDT 10 mEq 100 mL/hr potassium chloride 10 mEq in sterile water 100 mL infusion 10 mEq, Intravenous, EVERY 2 HOURS, 3 doses, First dose (after last reorder) on Thu04/01/24 at 0900, Last dose on Thu04/01/24 at 1300, Administer over 60 Minutes, Doses of 20 mEq or greater require a Central Line Warning Vesicant/Irritant Medication New Bag 04/01/2024 1:07 PM EDT 10 mEq 100 mL/hr New Bag 04/01/2024 10:53 AM EDT 10 mEq 100 mL/hr New Bag 04/01/2024 9:36 AM EDT 10 mEq 100 mL/hr potassium chloride 10 mEq in sterile water 100 mL infusion 10 mEq, Intravenous, EVERY 2 HOURS, 3 doses, First dose (after last reorder) on 04/02/24 at 1145, Last dose on 04/02/24 at 1545, Administer over 60 Minutes, Doses of 20 mEq or greater require a Central Line Warning Vesicant/Irritant Medication New Bag 04/02/2024 2:52 PM EDT 10 mEq 100 mL/hr New Bag 04/02/2024 1:37 PM EDT 10 mEq 100 mL/hr New Bag 04/02/2024 11:54 AM EDT 10 mEq 100 mL/hr potassium chloride ER (Klor-Con M) crystal tablet 40 mEq 40 mEq, Oral, ONCE, 1 dose, On 04/02/24 at 0600, 20 mEq tablet may be dissolved in water for administration potassium chloride ER particle/crystal tablets (Klor-Con M) may be broken in half and each half swallowed separately. Tablets can be dissolved in ~4 ounces of water; allow ~2 minutes to dissolve, stir well and drink immediately. Do not crush, chew, or suck on tablet., Routine Given 04/02/2024 7:48 AM EDT 40 mEq potassium chloride ER (Klor-Con M) crystal tablet 40 mEq 40 mEq, Oral, ONCE, 1 dose, On 04/02/24 at 1745, Dissolved in liquid potassium chloride ER particle/crystal tablets (Klor-Con M) may be broken in half and each half swallowed separately. Tablets can be dissolved in ~4 ounces of water; allow ~2 minutes to dissolve, stir well and drink immediately. Do not crush, chew, or suck on tablet., Routine Given 04/02/2024 5:33 PM EDT 40 mEq potassium chloride ER (Klor-Con M) crystal tablet 40 mEq 40 mEq, Oral, ONCE, 1 dose, On 04/03/24 at 1015, Dissolved in liquid potassium chloride ER particle/crystal tablets (Klor-Con M) may be broken in half and each half swallowed separately. Tablets can be dissolved in ~4 ounces of water; allow ~2 minutes to dissolve, stir well and drink immediately. Do not crush, chew, or suck on tablet., Routine Given 04/03/2024 9:30 AM EDT 40 mEq potassium chloride ER (Klor-Con M) crystal tablet 40 mEq 40 mEq, Oral, ONCE, 1 dose, On 04/05/24 at 0745, potassium chloride ER particle/crystal tablets (Klor-Con M) may be broken in half and each half swallowed separately. Tablets can be dissolved in ~4 ounces of water; allow ~2 minutes to dissolve, stir well and drink immediately. Do not crush, chew, or suck on tablet., Routine Given 04/05/2024 8:16 AM EDT 40 mEq potassium chloride ER (Klor-Con M) crystal tablet 40 mEq 40 mEq, Oral, ONCE, 1 dose, On Thu04/05/24 at 1000, potassium chloride ER particle/crystal tablets (Klor-Con M) may be broken in half and each half swallowed separately. Tablets can be dissolved in ~4 ounces of water; allow ~2 minutes to dissolve, stir well and drink immediately. Do not crush, chew, or suck on tablet., Routine Given 04/05/2024 11:04 AM EDT 40 mEq potassium chloride ER (Klor-Con M) crystal tablet 60 mEq 60 mEq, Oral, ONCE, 1 dose, On Thu04/04/24 at 0700, 20 mEq tablet may be dissolved in water for administration potassium chloride ER particle/crystal tablets (Klor-Con M) may be broken in half and each half swallowed separately. Tablets can be dissolved in ~4 ounces of water; allow ~2 minutes to dissolve, stir well and drink immediately. Do not crush, chew, or suck on tablet., Routine Given 04/04/2024 6:27 AM EDT 60 mEq simethicone (Gas-X Chew) 80 mg chewable tablet 80 mg 80 mg, Oral, EVERY 6 HOURS PRN, Starting on Thu04/01/24 at 0856, Until Thu04/05/24 at 0439, Cramping, Routine Given 04/02/2024 7:47 AM EDT 80 mg simethicone (Mylicon) (40 mg/0.6mL) oral liquid 40 mg 40 mg, Oral, 4 TIMES DAILY, First dose on Thu04/05/24 at 0530, Until Discontinued, Routine Given 04/06/2024 8:10 AM EDT 40 mg Given 04/05/2024 8:03 PM EDT 40 mg Given 04/05/2024 5:32 PM EDT 40 mg sodium chloride 0.9 % (flush) (BD PosiFlush Normal Saline 0.9) flush 5 mL 5 mL, Intravenous, 2 TIMES DAILY, First dose on Thu03/29/24 at 2115, Until Discontinued, Routine Given 04/06/2024 8:11 AM EDT 5 mLs Given 04/05/2024 8:03 PM EDT 5 mLs Given 04/05/2024 8:16 AM EDT 5 mLs sodium chloride 0.9 % (flush) (BD PosiFlush Normal Saline 0.9) flush 5-20 mL 5-20 mL, Intravenous, EVERY 1 MIN PRN, Starting on Thu03/29/24 at 2113, Until Thu04/06/24 at 1440, flush, Flush pertains to all indwelling lines. Flush per protocol found in the job aid using the link provided on this medication record., Routine sodium chloride 0.9% 1,000 mL IV bolus Intravenous, ONCE, 1 dose, On Thu03/29/24 at 2252 03/29/2024 11:11 PM EDT sodium chloride 0.9% 500 mL IV bolus Intravenous, ONCE, 1 dose, On Thu03/29/24 at 1708 03/29/2024 5:16 PM EDT sodium chloride 0.9% 500 mL IV bolus Intravenous, ONCE, 1 dose, On Thu03/29/24 at 2115 03/29/2024 9:54 PM EDT sodium chloride 0.9% infusion 100 mL/hr, Intravenous, CONTINUOUS, Starting on Thu03/29/24 at 2335, Until 04/02/24 at 1051 04/02/2024 5:08 AM EDT 100 mL/hr 100 mL/hr 04/01/2024 6:29 PM EDT 100 mL/hr 100 mL/hr 04/01/2024 8:38 AM EDT 100 mL/hr 100 mL/hr sodium chloride 0.9% with potassium chloride 40 mEq infusion 100 mL/hr, Intravenous, CONTINUOUS, Starting on Thu04/02/24 at 0600, Until 04/02/24 at 1027, Warning Vesicant/Irritant Medication 04/02/2024 5:16 AM EDT 100 mL/hr 100 mL/hr thiamine (Vitamin B-1) tablet 100 mg 100 mg, Oral, DAILY, 7 doses, First dose on Thu03/30/24 at 1615, Last dose on Thu04/05/24 at 0900, Routine Given 04/05/2024 8:17 AM EDT 100 mg Given 04/04/2024 8:06 AM EDT 100 mg Given 04/03/2024 9:00 AM EDT 100 mg documented in this encounter Active and Recently Administered Medications Times are shown in EDT. Scheduled Medication Order 04/04/2024 04/05/2024 04/06/2024 carvediloL (Coreg) tablet 6.25 mg 6.25 mg, Oral, 2 TIMES DAILY WITH MEALS, First dose on Thu03/30/24 at 0900, Until Discontinued, Routine 0806 (Given - Provider: Marcella Aguilera RN)1630 (Given - Provider: Marcella Aguilera RN) 0811 (Given - Provider: Farideh Dhaliwal, SAM)1728 (Given - Provider: Farideh Dhaliwal RN) 0810 (Given - Provider: Farideh Dhaliwal RN) docusate sodium (Colace) capsule 100 mg 100 mg, Oral, 2 TIMES DAILY, First dose on Thu04/05/24 at 2100, Until Discontinued, Routine 2100 (Hold - Provider: Geovanny Retana RN - Reason: See comment - Comment: Pt states I'll take this in the middle of the night when I wake up) 0300 (Given - Provider: Geovanny Retana RN - Comment: First dose)0810 (Given - Provider: Farideh Dhaliwal RN) enoxaparin (Lovenox) (40 mg/0.4 mL) subcutaneous injection 40 mg 40 mg, Subcutaneous, NIGHTLY, First dose on Thu03/29/24 at 2252, Until Discontinued, Routine 2008 (Given - Provider: Meenu Coelho RN) 2002 (Given - Provider: Geovanny Retana RN) multivitamin with minerals (Thera M) tablet 1 tablet 1 tablet, Oral, DAILY, 10 doses, First dose on Thu03/30/24 at 1615, Last dose on Thu04/08/24 at 0900, Routine 0806 (Given - Provider: Marcella Aguilera RN) 0815 (Given - Provider: Farideh Dhaliwal RN) 0810 (Given - Provider: Farideh Dhaliwal RN) pantoprazole EC (Protonix) tablet 40 mg 40 mg, Oral, DAILY, First dose on Thu04/03/24 at 0900, Until Discontinued, DO NOT CRUSH OR OPEN, Routine 0806 (Given - Provider: Marcella Aguilera RN) 0816 (Given - Provider: Farideh Dhaliwal RN) 0810 (Given - Provider: Farideh Dhaliwal RN) potassium chloride ER (Klor-Con M) crystal tablet 40 mEq (COMPLETED) 40 mEq, Oral, ONCE, 1 dose, On Thu04/05/24 at 0745, potassium chloride ER particle/crystal tablets (Klor-Con M) may be broken in half and each half swallowed separately. Tablets can be dissolved in ~4 ounces of water; allow ~2 minutes to dissolve, stir well and drink immediately. Do not crush, chew, or suck on tablet., Routine 0816 (Given - Provider: Farideh Dhaliwal RN) potassium chloride ER (Klor-Con M) crystal tablet 40 mEq (COMPLETED) 40 mEq, Oral, ONCE, 1 dose, On Thu04/05/24 at 1000, potassium chloride ER particle/crystal tablets (Klor-Con M) may be broken in half and each half swallowed separately. Tablets can be dissolved in ~4 ounces of water; allow ~2 minutes to dissolve, stir well and drink immediately. Do not crush, chew, or suck on tablet., Routine 1104 (Given - Provider: Farideh Dhaliwal RN) potassium chloride ER (Klor-Con M) crystal tablet 60 mEq (COMPLETED) 60 mEq, Oral, ONCE, 1 dose, On Thu04/04/24 at 0700, 20 mEq tablet may be dissolved in water for administration potassium chloride ER particle/crystal tablets (Klor-Con M) may be broken in half and each half swallowed separately. Tablets can be dissolved in ~4 ounces of water; allow ~2 minutes to dissolve, stir well and drink immediately. Do not crush, chew, or suck on tablet., Routine 0627 (Given - Provider: Panchito Ahuja RN) simethicone (Mylicon) (40 mg/0.6mL) oral liquid 40 mg 40 mg, Oral, 4 TIMES DAILY, First dose on Thu04/05/24 at 0530, Until Discontinued, Routine 0543 (Given - Provider: Meenu Coelho RN)0820 (Given - Provider: Farideh Dhaliwal RN)1257 (Given - Provider: Farideh Dhaliwal RN)1732 (Given - Provider: Farideh Dhaliwal, SAM)2002 (Given - Provider: Geovanny Retana, RN) 0810 (Given - Provider: Farideh Dhaliwal RN) sodium chloride 0.9 % (flush) (BD PosiFlush Normal Saline 0.9) flush 5 mL 5 mL, Intravenous, 2 TIMES DAILY, First dose on Thu03/29/24 at 2115, Until Discontinued, Routine 0900 (Given - Provider: Marcella Aguilera RN)2008 (Given - Provider: Meenu Coelho, SAM) 0816 (Given - Provider: Farideh Dhaliwal, SAM)2002 (Given - Provider: Geovanny Retana, RN) 0811 (Given - Provider: Farideh Dhaliwal RN) thiamine (Vitamin B-1) tablet 100 mg 100 mg, Oral, DAILY, 7 doses, First dose on Thu03/30/24 at 1615, Last dose on Thu04/05/24 at 0900, Routine 0806 (Given - Provider: Marcella Aguilera RN) 0817 (Given - Provider: Farideh Dhaliwal RN) PRN Medication Order 04/04/2024 04/05/2024 04/06/2024 alum-mag hydroxide-simeth (Maalox) (40 mg-40 mg-4 mg/mL) oral liquid 10 mL 10 mL, Oral, 3 TIMES DAILY PRN, Starting on Thu04/01/24 at 0948, Until Thu04/06/24 at 1440, Heartburn, Routine 0806 (Given - Provider: Marcella Aguilera RN)1630 (Given - Provider: Macrella Aguilera RN)2251 (Given - Provider: Meenu Coelho, SAM) 1510 (Given - Provider: Melody Matthews RN)1946 (Given - Provider: Geovanny Retana, RN) 0300 (Given - Provider: Geovanny Retana, RN) lidocaine (Xylocaine) 1% (10 mg/mL) injection 3 mg 3 mg (0.3 mL), Subcutaneous, ONCE PRN, 1 dose, Starting on Thu03/29/24 at 2113, Until Thu04/06/24 at 1440, for discomfort with PIV insertion, Routine melatonin tablet 3 mg 3 mg, Oral, NIGHTLY PRN, Starting on Thu03/29/24 at 2247, Until Thu04/06/24 at 1440, Sleep, Sleep, Routine 2010 (Given - Provider: Meenu Coelho, SAM) 1945 (Given - Provider: Geovanny Retana RN) ondansetron (pf) (Zofran) (2 mg/mL) injection 4 mg(Linked Group 1) 4 mg, Intravenous, EVERY 8 HOURS PRN, Starting on Thu03/29/24 at 2248, Until Thu04/06/24 at 1440, Nausea, 4 mg,Oral,EVERY 8 HOURS PRN, Nausea,Vomiting If multiple antiemetics are ordered, use ondansetron first. May repeat times one in 30 minutes if ineffective. ondansetron ODT (Zofran-ODT) disintegrating tablet 4 mg(Linked Group 1) 4 mg, Oral, EVERY 8 HOURS PRN, Starting on Thu03/29/24 at 2248, Until Thu04/06/24 at 1440, Nausea, If multiple antiemetics are ordered, use ondansetron first. PO Preferred. If patient unable to take PO, may give IV if ordered. May repeat times one in 45 minutes if ineffective. , Routine sodium chloride 0.9 % (flush) (BD PosiFlush Normal Saline 0.9) flush 5-20 mL 5-20 mL, Intravenous, EVERY 1 MIN PRN, Starting on Thu03/29/24 at 2113, Until Thu04/06/24 at 1440, flush, Flush pertains to all indwelling lines. Flush per protocol found in the job aid using the link provided on this medication record., Routine Linked Groups Order Group 1: ondansetron ODT (Zofran-ODT) disintegrating tablet 4 mgJump to med 4 mg, Oral, EVERY 8 HOURS PRN, Starting on Thu03/29/24 at 2248, Until Thu04/06/24 at 1440, Nausea, If multiple antiemetics are ordered, use ondansetron first. PO Preferred. If patient unable to take PO, may give IV if ordered. May repeat times one in 45 minutes if ineffective. , Routine Or ondansetron (pf) (Zofran) (2 mg/mL) injection 4 mgJump to med 4 mg, Intravenous, EVERY 8 HOURS PRN, Starting on Thu03/29/24 at 2248, Until Thu04/06/24 at 1440, Nausea, 4 mg,Oral,EVERY 8 HOURS PRN, Nausea,Vomiting If multiple antiemetics are ordered, use ondansetron first. May repeat times one in 30 minutes if ineffective. documented in this encounter Care Teams Wire Coiner Relationship Specialty Start Date End Date Cedric Rosenbaum DO [address] [place] [address] PCP - General Family Medicine 03/29/24 documented as of this encounter
--- OUTSIDE RECORDS SUMMARY | 2024-05-14 12:57 | XMS_ITS | Encounter Summary ---
Author Organization [facility] Address [facility] [place] [address] Care Team Providers Care Canine Deputy Name Role Phone Cedric Rosenbaum DO Primary Care Provider [phone] Encounter Details Date Type Department Care Team (Latest Contact Info) Description 04/12/2024 Multidisciplinary Ca re Committee [place]ematology [place] [phone] Fernando Smith MD [facility] [place] [address] Social History Tobacco Use Types Packs/Day Years [...] your doctor or pharmacy? Never 04/12/2024 [facility] Utilities Answer Date Recorded In the [...] as of this encounter Progress Notes * Fernando Smith MD - 04/12/2024 6:50 AM EDT GI Tumor Board Note Date Presented: 04/12/24 Presenting Physician: Dr. 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 Pathology/Histology: adenocarcinoma, mismatch repair proficient Stage: locally advanced, unresectable Clinical Data (Exams, Labs, etc.): CA 19-9 (u/ml) Date Value 03/30/2024 193.0 (H) Molecular Pathology Results: [facility] Clinical Trial Availability: n/a Options Discussed: palliative chemotherapy, with consideration for subsequent consolidative SBRT Recommendations: as above DISCLAIMER: The patient was discussed and the tumor board made recommendations but it is ultimatelyup to the treatment provider(s) and the patient to determine the patient???s care. documented in this encounter Plan of Treatment Upcoming Encounters Date Type Department Care Team (Late st Contact Info) Description 05/20/2024 8:30 AM EDT Office Visit Hematology/Oncology at [address] [phone] Ministerio Kelly MD [facility] [place] [address] Katherine Guadarrama APRN [address] [place] [address] HEMATOLOGY AND ONGOLOCY [place], [place] [phone] 05/20/2024 9:00 AM EDT Infusion Hematology Oncology at [address] [phone] 05/30/2024 1:00 PM EDT Tech [place] [phone] Dena Graves 05/30/2024 4:00 PM EDT Office [place] [address] Derek Evans MD [facility] [place] [address] 06/03/2024 8:30 AM EDT Office Visit Hematology/Oncology at [address] [phone] Ministerio Kelly MD [facility] [place] [address] Katherine Guadarrama APRN [address] [place] [address] DR HEMATOLOGY AND ONGOLOCY [place], [place] [id number] 06/03/2024 9:00 AM EDT Infusion Hematology Oncology at [address] [phone] documented as of this encounter Visit Diagnoses Not on filedocumented in this encounter Care Teams Canine Deputy Relationship Specialty Start Date End Date Cedric Rosenbaum DO [address] [place] [phone] PCP - General Family Medicine 03/29/24 documented as of this encounter
--- OUTSIDE RECORDS SUMMARY | 2024-05-14 12:57 | XMS_ITS | Encounter Summary ---
Author Organization [facility] [place] [address] Care Team Providers Care Junior Staff Accountant Name Role Phone Cedric Rosenbaum DO Primary Care Provider [phone] Reason for Visit * Reason Comments Genetic Evaluation Encounter Details Date Type Department Care Team (Late st Contact Info) Description 04/12/2024 12:00 PM EDT Office Visit Hematology [place] [phone] Alan Covarrubias V, [facility] Hematology/[place] [address] Malignant neoplasm of head of pancreas Social [...] your doctor or pharmacy? Never 04/12/2024 [facility] Utilities Answer Date Recorded In [...] any time in the past 12 m [facility], were you homeless or living in [...] of this encounter Progress Notes * Alan Covarrubias LGC - 04/12/2024 12:00 PM EDT Dylan Michele was seen by LEAH Martinez in consultation at the request of Diamond Oconnor to advise regarding possible heritable predisposition to cancer. I spent <15 minutes minutes of this face to face encounter with the patient gathering medical and family history and discussing the likelihood of a genetic predisposition to cancer and the option of genetic testing. Reason for referral/Chief complaint Personal history of pancreatic cancer. Medical history Cancer hx and treatment: Dylan is a 53yo male with a newly diagnosed pancreatic cancer. EUS-guided FNA of the pancreas on 03/31/24 was positive for malignancy: DISCUSSION Pancreas: uncinate (EUS-guided FNA) - Adenocarcinoma. Block Antibody Result (Positive/Negative) A1 MLH1 Positive, intact nuclear staining MSH2 Positive, intact nuclear staining MSH6 Positive, intact nuclear staining PMS2 Positive, intact nuclear staining Dylan met with Dr. Kelly today to review treatment recommendations. Family History Adopted: Yes Dylan reports having minimal contact with his biological family but is not aware of any cancer diagnoses. Genetic risk assessment Based on personal and/or family history, the likelihood that Dylan would be found to have a mutation in a cancer predisposition gene is high enough to offer the option of genetic testing. Specifically, Dylan meets NCCN criteria for BRCA1/2 testing due to his personal history of pancreatic cancer. Reviewed purpose of testing, including potential for results to impact treatment recommendations or clinical trial eligibility as well as to identify hereditary cancer risks for Dylan and his blood relatives. Panel genetic testing for an inherited predisposition to cancer, including pancreatic cancer, was discussed. The risks, benefits and limitations of panel genetic testing were reviewed, specifically ahigh rate of identifying a variant of uncertain significance, lack of knowledge of cancer risk for newly identified, moderate risk genes included in the panel and lack of effective screening, as wellas cancer risk for other cancers not observed in the family. We reviewed dominant inheritance, meaning that if a mutation is detected there is a 50% chance for Dylan's children and siblings to have also inherited the same gene alteration. We discussed the Genetic Information Nondiscrimination Act (VERÓNICA), a federal law prohibiting discrimination by health insurance companies and most employers based on genetic information. VERÓNICA does not apply to life insurance, disability insurance or long-term care insurance. More information about VERÓNICA may be found at [employer]org. Dylan opted for testing with [facility]' CancerNext-Expanded +RNAinsight Panel, a next generation sequencing panel that simultaneously analyzes 71 genes, including BRCA1 and BRCA2, that contribute to increased risk for cancer. Dylan was consented. His blood sample was drawn and sent to [facility]. Testing will take up to 3 weeks from when the lab receives the sample. Dylan will be contacted via telephone once his test results become available. At that time, we will discuss with Dylan the implications that this test result may have for him as well as his family members, review any recommended screening guidelines for cancer prevention and early detection, and answer any questions he mayhave. documented in this encounter Plan of Treatment Upcoming Encounters Date Type Department Care Team (Late st Contact Info) Description 05/20/2024 8:30 AM EDT Office Visit Hematology/Oncology at [address] [place] [address] [phone] Ministerio Kelly MD [facility] [place] [address] [address] H[place]ATOLOGY AND [place], [place] [phone] 05/20/2024 9:00 AM EDT Infusion Hematology Oncology at [address] [place] [address] [phone] 05/30/2024 1:00 PM EDT Tech [place] [address] Dena Graves 05/30/2024 4:00 PM EDT Office [place] [phone] Derek Evans MD [facility] [place] [place] [address] 06/03/2024 8:30 AM EDT Office Visit Hematology/Oncology at [address] [place] [address] [phone] Ministerio Kelly MD [facility] [place] [address] [address] HEMATOLOGY AND [place], [place] [phone] 06/03/2024 9:00 AM EDT Infusion Hematology Oncology at [address] [place] [address] [phone] documented as of this encounter Visit Diagnoses Diagnosis Malignant neoplasm of head of pancreas documented in this encounter Care Teams Junior Staff Accountant Relationship Specialty Start Date End Date Cedric Rosenbaum DO [address] [place] [phone] PCP - General Family Medicine 03/29/24 documented as of this encounter
--- OUTSIDE RECORDS SUMMARY | 2024-05-14 12:58 | XMS_ITS | Encounter Summary ---
Author Organization [facility] Address [address] [place] [address] Care Team Providers Care Sweater Designer Name Role Phone Paul Ribeiro MD Primary Care Provider [phone] Encounter Details Date Type Department Care Team (Late st Contact Info) Description 07/18/2020 Lab Requisition [facility] Pathology & Laboratory Medicine - [facility] [address] [place] [address] Outr Resulting Lab, Provider Social History Tobacco Use Types Packs/Day Years Used Date Smoking Tobacco: Never Assessed Sex and Gender Information Value Date Recorded Sex Assigned at Not on file Gender Identity Not on file Sexual Orientation Not on file documented as of this encounter Plan of Treatment Not on file documented as of this encounter Procedures Procedure Name Priority Date/Time Associated Diagnosis Comments DO NOT ORDER STANDALONE - BROAD COVID TEST Today 07/18/2020 9:45 EDT COVID-19 TESTING Routine 07/18/2020 9:45 EDT documented in this encounter Results * DO NOT ORDER STANDALONE - BROAD COVID TEST (07/18/2020 9:45 EDT) COVID-19 rt-PCR Result NEGATIVE Negative 07/19/2020 13:18 EDT [facility] Comment: 2019-novel Coronavirus (2019-nCoV) not detected by the qRT-PCR assay. Consider testing for other respiratory viruses or re-collecting for 2019-nCoV testing. Note: Optimum timing for peak viral levels during infections caused by 2019-nCoV have not been determined. Collection of multiple specimens from the same patient may be necessary to detect the virus. Limitations Positive results are indicative of active infection with SARS-CoV-2 but do not rule out bacterial infection or co-infection with other viruses. The agent detected may not be the definite cause of disease. In addition, detection of viral RNA may not indicate the presence of infectious virus or that SARS-CoV-2 is the causative agent for clinical symptoms. Negative results do not preclude SARS-CoV-2 infection and should not be used as the sole basis for patient management decisions. Negative results must be combined with clinical observations, patient history, and epidemiological information. False negative results may also occur if amplification inhibitors are present in the specimen or if inadequate numbers of organisms are present in the specimen. Optimum specimen types and timing for peak viral levels during infections caused by SARS-CoV-2 have not been fully determined. Collection of multiple specimens (types and time points) from the same patient may be necessary to detect the virus. The test was validated for use with upper respiratory specimens obtained via nasopharyngeal or oropharyngeal swabs in VTM, UTM, M4, M5, M6, saline, and MTM media. The performance of this test has not been established for other specimens. Specimens collected using other FDA recommended Specimen Collection Materials listed in the FDA COVID-19 [employer] communication (January 26, 2020) are processed with the caveat that they were not all validated for use with this test and the result must be interpreted in this context. Furthermore, a false negative results may occur if a specimen is improperly collected, transported or handled. If the virus mutates in the RT-PCR target region, SARS-CoV-2 may not be detected or may be detected less predictably. Inhibitors or other types of interference may produce a false negative result. An interference study evaluating the effect of common cold medications was not performed. This test is not FDA-cleared but its performance characteristics were established by our CLIA-certified, CAP-accredited, high complexity laboratory in accordance with CLIA regulations, [employer] (CAP) guidelines (Jan 19, 2020), and FDA guidance (Dec 31, 2019). This test is only for use under the Food and Drug Administration's Emergency Use Authorization. Swab ENTIRE NASOPHARYNX / Unknown 07/18/2020 9:45 EDT 07/18/2020 16:53 EDT Provider Outr Resulting Lab MICROBIOLOGY - GENERAL ORDERABLES [facility] [place], [place] * COVID-19 TESTING (07/18/2020 9:45 EDT) [facility] COVID-19 rt-PCR Result NEGATIVE Negative 07/19/2020 14:21 EDT [facility] Comment: 2019-novel Coronavirus (2019-nCoV) not detected by the qRT-PCR assay. Consider testing for other respiratory viruses or re-collecting for 2019-nCoV testing. Note: Optimum timing for peak viral levels during infections caused by 2019-nCoV have not been determined. Collection of multiple specimens from the same patient may be necessary to detect the virus. Limitations Positive results are indicative of active infection with SARS-CoV-2 but do not rule out bacterial infection or co-infection with other viruses. The agent detected may not be the definite cause of disease. In addition, detection of viral RNA may not indicate the presence of infectious virus or that SARS-CoV-2 is the causative agent for clinical symptoms. Negative results do not preclude SARS-CoV-2 infection and should not be used as the sole basis for patient management decisions. Negative results must be combined with clinical observations, patient history, and epidemiological information. False negative results may also occur if amplification inhibitors are present in the specimen or if inadequate numbers of organisms are present in the specimen. Optimum specimen types and timing for peak viral levels during infections caused by SARS-CoV-2 have not been fully determined. Collection of multiple specimens (types and time points) from the same patient may be necessary to detect the virus. The test was validated for use with upper respiratory specimens obtained via nasopharyngeal or oropharyngeal swabs in VTM, UTM, M4, M5, M6, saline, and MTM media. The performance of this test has not been established for other specimens. Specimens collected using other FDA recommended Specimen Collection Materials listed in the FDA COVID-19 [employer] communication (January 26, 2020) are processed with the caveat that they were not all validated for use with this test and the result must be interpreted in this context. Furthermore, a false negative results may occur if a specimen is improperly collected, transported or handled. If the virus mutates in the RT-PCR target region, SARS-CoV-2 may not be detected or may be detected less predictably. Inhibitors or other types of interference may produce a false negative result. An interference study evaluating the effect of common cold medications was not performed. This test is not FDA-cleared but its performance characteristics were established by our CLIA-certified, CAP-accredited, high complexity laboratory in accordance with CLIA regulations, [employer] (CAP) guidelines (Jan 19, 2020), and FDA guidance (Dec 31, 2019). This test is only for use under the Food and Drug Administration's Emergency Use Authorization. Performing Lab [facility] 07/19/2020 14:21 EDT [facility] Swab 07/18/2020 9:45 EDT 07/18/2020 16:53 EDT Provider Outr Resulting Lab MICROBIOLOGY - GENERAL ORDERABLES [facility] [address] [place], [place] [id number] [place] [address] [facility] [place] documented in this encounter Visit Diagnoses Not on filedocumented in this encounter Care Teams Sweater Designer Relationship Specialty Start Date End Date Paul Ribeiro MD PCP - General 06/26/14 documented as of this encounter
--- OUTSIDE RECORDS SUMMARY | 2024-05-14 12:58 | XMS_ITS | Encounter Summary ---
Author Organization [facility] Address [address] [place] [address] Care Team Providers Care Industrial [address] Magistrate Name Role Phone Paul Ribeiro MD Primary Care Provider Encounter Details Date Type Department Care Team (Late st Contact Info) Description 11/18/2023 Lab Requisition [facility] Pathology & Laboratory Medicine - [facility] [address] [place] [address] Willie Chang MD [address] [place] [phone] Encounter for other general examination Social History Tobacco Use Types Packs/Day Years Used Date Smoking Tobacco: Never Assessed Interpersonal Safety Answer Date Record ed Physically Hurt Never 08/26/2020 Verbally Threaten Not on file 08/26/2020 Sex and Gender Information Value Date Recorded Sex Assigned at Not on file Gender Identity Not on file Sexual Orientation Not on file documented as of this encounter Plan of Treatment Not on file documented as of this encounter Procedures Procedure Name Priority Date/Time Associated Diagnosis Comments SURGICAL PATHOLOGY Today 11/18/2023 11 :40 EST documented in this encounter Results * SURGICAL PATHOLOGY (11/18/2023 11:40 EST) Note to Patient The following pathology results have been interpreted by your pathologist and may be available to you before your health provider has had the opportunity to review them. Please allow time for your provider to receive these results and explore management options, if applicable. 11/23/2023 15:52 EST [facility] Final Diagnosis A. SUBMITTED ? BURSA OF OLECRANON? , LEFT, EXCISION: - Consistent with gouty tophus. (see comment) 11/23/2023 15:52 [facility] Diagnosis Comment Histologic examination reveals benign fibroadipose tissue with amorphous material and associated granulomatous reaction, composed of foreign body type multinucleated giant cells and foamy histiocytes. 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 Clinicopathologic correlation is recommended. 11/23/2023 15:52 [facility] Attestation There was significant resident/fellow involvement in the diagnostic evaluation of this case. By the signature below, the attending physician certifies that they have personally conducted a gross and/or microscopic examination of the described specimens and rendered or confirmed the above diagnosis. 11/23/2023 15:52 [facility] at 1552 Clinical History Left elbow olecranal bursitis 11/23/2023 15:52 [facility] Gross Description A. Received in formalin labelled with proper patient identification (initials D, J) and left olecranon bursa is a 6 x 4 x up to 2 cm irregular portion of cabrera-brown rubbery tissue. The specimen is serially sectioned and claim representative cross-sections are submitted in A1. DAWNA LUNDY(ASCP) 11/19/2023 10:33 11/23/2023 15:52 [facility] Resident/Fell ow: Heidi Hernandez DO 11/23/2023 15:52 [facility] Performing Lab [facility] 11/23/2023 15:52 [facility] Scanned Images 11/23/2023 15:52 [facility] Tissue BURSA SPECIMEN / Unknown 11/18/2023 11:40 EST 11/19/2023 6:32 EST Willie Chang MD PATHOLOGY ORDERABLES [facility] [address] [place] [address] documented in this encounter Visit Diagnoses Diagnosis Encounter for other general examination documented in this encounter Care Teams Industrial Court Magistrate Relationship Specialty Start Date End Date Paul Ribeiro MD PCP - General 06/26/14 documented as of this encounter
--- OUTSIDE RECORDS SUMMARY | 2024-05-14 12:58 | XMS_ITS | Encounter Summary ---
Author Organization [facility] Address [address] [place] [address] Care Team Providers Care Line O Scribe Operator Name Role Phone Paul Ribeiro MD Primary Care Provider [phone] Encounter Details Date Type Department Care Team (Late st Contact Info) Description 06/26/2014 Results Only [facility]- [facility] [phone] Randell Pierson MD [address] [place] [address] Social History Tobacco Use Types Packs/Day Years Used Date Smoking Tobacco: Never Assessed Sex and Gender Information Value Date Recorded Sex Assigned at Not on file Gender Identity Not on file Sexual Orientation Not on file documented as of this encounter Plan of Treatment Not on file documented as of this encounter Procedures Procedure Name Priority Date/Time Associated Diagnosis Comments SURGICAL PATHOLOGY Routine 06/26/2014 9:56 EDT documented in this encounter Results * SURGICAL PATHOLOGY (06/26/2014 9:56 EDT) Pathology Report: SURGICAL PATHOLOGY REPORT Reports generated via electronic interface contain original data; however they are lacking the format of the original report. Caution should be taken when reading/interpreti ng unformatted reports. Name: ? HIRO BLISS ? Accession #: ? [id number] ? : ? 1970 (Age: 44) ??M ? Collect Date: ? 06/26/2014 ? Location: ? [facility] ? Receive Date: ? 06/27/2014 ? Provider: RANDELL PIERSON MD Copy to: JAM BARBA DO ? Final Pathologic Diagnosis: SKIN OF LEG, RIGHT LOWER, ROWE, EXCISION: - Dermatofibroma. - Margins of excision negative. Microscopic Description: There is irregular epidermal hyperplasia with basal hyperpigmentation. ??Within the dermis, there is a spindle cell proliferation accompanied by histiocytes. The spindle cells have plump nuclei that vary to a mild degree in size and shape. ??The proliferation is associated with thick bundles of collagen (collagen trapping) and areas of sclerosis. ??(Dr. Pizano)/[facility] Document reviewed and electronically signed by: LUIS PIZANO MD Report ??Date: 06/28/2014 12:03 By the signature above, the attending physician certifies that he/she has personally conducted a gross and/or microscopic examination of the described specimens and rendered or confirmed the above diagnosis. Specimen(s) Received: Right lower leg (rowe) Clinical History: Exc lesion R lower leg Gross Description: ? Received in formalin labelled with proper patient identification (initials D, J) and R lower leg is an unoriented ovoid excision of cabrera skin (0.9 x 0.7 cm and is excised to a depth of 0.5 cm). There is an ill defined firm pink-white nodule with focal ulceration that measures 0.4 x 0.4 x 0.2 cm. The margins are inked blue. The specimen is serially sectioned and entirely submitted as 1 central sections and 2 tips, reverse en face. Luis Aburto 06/27/2014 11:41 AM End of Report [facility] 06/26/2014 9:56 EDT 06/27/2014 9:56 EDT Randell Pierson MD PATHOLOGY ORDERABL ES [facility] [address] [place] [address] documented in this encounter Visit Diagnoses Not on filedocumented in this encounter Care Teams Line O Scribe Operator Relationship Specialty Start Date End Date Paul Ribeiro MD PCP - General 06/26/14 documented as of this encounter
--- OUTSIDE RECORDS SUMMARY | 2024-05-14 12:58 | XMS_ITS | Clinical Summary ---
Author Organization [facility] Address [address] [place] [address] Care Team Providers Care White Sugar Boiler Name Role Phone Paul Ribeiro MD Primary Care Provider [phone] Encounters Date Type Department Care Team Description 03/10/2024 Lab Requisition [facility] Pathology & Laboratory [address] [address] Vincent Phipps DO Encounter for other general examination 03/03/2024 Lab Requisition [facility] Pathology & Laboratory [address] [address] Outr Resulting Lab, Provider 03/02/2024 Lab Requisition [facility] Pathology & Laboratory [address] [address] Outr Resulting Lab, Provider from Last 3 Months Social History Tobacco Use Types Packs/Day Years Used Date Smoking Tobacco: Never Assessed Interpersonal Safety Answer Date Record ed Physically Hurt Never 08/26/2020 Verbally Threaten Not on file 08/26/2020 Sex and Gender Information Value Date Recorded Sex Assigned at Not on file Gender Identity Not on file Sexual Orientation Not on file Plan of Treatment Health Maintenance Due Date Last Done Comments Hepatitis C Screen 1970 Hepatitis B Vaccine (1 of 3 - 19+ 3-dose series) 04/14 COVID-19 Vaccine ( season) 2023 Procedures Procedure Name Priority Date/Time Associated Diagnosis Comments SURGICAL PATHOLOGY Today 03/10/2024 13 :06 EDT Encounter for other general examination AFP TUMOR MARKER Routine 03/02/2024 9:21 EDT CA 125 Routine 03/02/2024 9:20 EDT from Last 3 Months Results * SURGICAL PATHOLOGY (03/10/2024 13:06 EDT) Note to Patient The following pathology results have been interpreted by your pathologist and may be available to you before your health provider has had the opportunity to review them. Please allow time for your provider to receive these results and explore management options, if applicable. 03/14/2024 11:42 [facility] Final Diagnosis A. DUODENUM, BIOPSY: - Duodenal mucosa with no significant diagnostic abnormalities. B. COLON, TRANSVERSE, POLYP, BIOPSY: - Tubular adenoma. C. COLON, RANDOM, BIOPSY: - Fragment of tubular adenoma. - Fragments of colonic mucosa with no significant diagnostic abnormalities. D. COLON, ASCENDING, POLYP, BIOPSY: - Fragments of tubulovillous adenoma. E. COLON, DESCENDING, POLYP, BIOPSY: - Fragments of tubular adenoma. 03/14/2024 11:42 [facility] Attestation By the signature below, the attending physician certifies that they have 1) personally conducted a gross and/or microscopic examination of the described specimen(s), and/or personally interpreted the results of laboratory testing of the described specimen(s), and 2) personally rendered or confirmed the above diagnosis. 03/14/2024 11:42 [facility] at 1142 Clinical History Bloating, screening, normal, colon polyps 03/14/2024 11:42 [facility] Gross Description A. Received in formalin labelled with proper patient identification (initials D, J) and A. Duodenal bx are 2 cabrera tissues (0.6 x 0.3 x 0.2 cm and 0.8 x 0.2 x 0.2 cm). Entirely submitted in A1. B. Received in formalin labelled with proper patient identification (initials D, J) and B. Transverse colon polyp are 2 cabrera tissue fragments (0.6 x 0.3 x 0.2 cm in aggregate). Entirely submitted in B1. C. Received in formalin labelled with proper patient identification (initials D, J) and C. Random colon bx are 2 cabrera-brown tissue fragments (0.4 x 0.2 x 0.1 cm and 0.6 x 0.3 x 0.1 cm). Entirely submitted in C1. D. Received in formalin labelled with proper patient identification (initials D, J) and D. Ascending colon bx/polyp is an aggregate of cabrera-brown tissue fragments (2.2 x 1.2 x 0.3 cm). Entirely submitted in D1 and D2. E. Received in formalin labelled with proper patient identification (initials D, J) and E. Descending colon polyp is an aggregate of cabrera-brown tissue fragments (1.1 x 0.8 x 0.1 cm). Entirely submitted in E1. DAWNA STONE(ASCP) 03/11/2024 9:52 03/14/2024 11:[address] [facility] Performing Lab [facility] 03/14/2024 11:[address] [facility] Scanned Images 03/14/2024 11:[address] [facility] Tissue DESCENDING COLON STRUCTURE / Unknown 03/10/2024 13:06 EDT 03/11/2024 9:01 EDT Tissue specimen (specimen) TRANSVERSE COLON STRUCTURE / Unknown 03/10/2024 13:06 EDT 03/11/2024 9:01 EDT Tissue specimen (specimen) COLON STRUCTURE / Unknown 03/10/2024 13:06 EDT 03/11/2024 9:01 EDT Tissue specimen (specimen) ASCENDING COLON STRUCTURE / Unknown 03/10/2024 13:06 EDT 03/11/2024 9:01 EDT Tissue specimen (specimen) DESCENDING COLON STRUCTURE / Unknown 03/10/2024 13:06 EDT 03/11/2024 9:01 EDT Vincent Phipps DO PATHOLOGY ORDERABL ES [facility] [address] [place] [id number] * AFP TUMOR MARKER (03/02/2024 9:21 EDT) AFP Tumor Marker <2.5 <8.1 ng/mL 03/04/2024 9:[address] [facility] Comment: AFP Tumor Marker cannot be interpreted in females. ?? NOTE: Serum AFP concentrations should not be interpreted as absolute evidence for the presence or absence of malignant disease. Assayed on Siemens ADVIA Centaur XPT using chemiluminescent technology. ??Values obtained by using different assay methods cannot be used interchangeably. Blood VENOUS BLOOD / Unknown 03/02/2024 9:21 EDT 03/03/2024 21:02 EDT Provider Outr Resulting Lab CHEMISTRY & BLOOD GAS ORDERABLES Performing Organization Address City[facility]/ZIP Co de Phone Number [facility] [address] [place] [address] * CA 125 (03/02/2024 9:20 EDT) CA 125 12 <30 U/mL 03/02/2024 22:[address] [facility] Comment: NOTE: Serum CA 125 concentration should not be interpreted as absolute evidence for the presence or absence of malignant disease. Assayed on Siemens ADVIA Centaur XPT using chemiluminescent technology. ??Values obtained by using different assay methods cannot be used interchangeably. Blood VENOUS BLOOD / Unknown 03/02/2024 9:20 EDT 03/02/2024 21:25 EDT Provider Outr Resulting Lab CHEMISTRY & BLOOD GAS ORDERABLES Performing Organization Address [facility] de Phone Number [facility] [address], [place] [address] from Last 3 Months Care Teams White Sugar Boiler Relationship Specialty Start Date End Date Paul Ribeiro MD PCP - General 06/26/14
--- OUTSIDE RECORDS SUMMARY | 2024-05-14 12:58 | XMS_ITS | Encounter Summary ---
[place] [address] Care Team Providers Care Design Verification Engineer Name Role Phone Cedric Rosenbaum DO Primary Care Provider [phone] Reason for Visit * Auth/Cert (Routine) Specialty Diagnoses / Procedures Referred By Contac t Referred To Contact Diagnoses Nausea & vomiting Procedures ER IPI Sarwat Fleming MD [facility] [place] [address] [facility] Referral ID Status Reason Start Date Expiration Date Visits Re quested Visits Authorized [id number] 1 1 Encounter Details Date Type Department Care Team (Late st Contact Info) Description 03/31/2024 10:33 AM EDT Anesthesia [place] [address] Pj Caraballo MD [facility] [place] [address] Anesthesia Record Procedure Summary Procedure Name Responsible Anesthesiologist Anesthesia Start Time Anesthesia Stop Time EGD, W US GUIDED FINE NEEDLE ASPIRATION/BIOPSY (WRVU 4.16) (Trunk) Pj Caraballo MD 03/31/24 1033 03/31/24 1232 Events Date Time Event Comment 03/31/2024 1021 1033 AN Verify 1033 Start 1033 An Start Data 1040 An Induction 1041 An Intubation 1042 Anesthesia Ready 1230 Extubation/LMA Out 1232 an stop data 1232 Recovery or ICU Handoff Sabra ent care was transferred to the destination unit staff after review of the patient's medical history, current anesthetic/surgical status and plan, according to the Provider Handoff Checklist. 1232 Stop Meds Name Total Propofol 200 mg Propofol INF 1,713.9 mg succinylcholine 100 mg ePHEDrine 20 mg lactated ringers 800 mL * Agents Name O2 Auxiliary Flowmeter 1 * Blood No blood administrations on file. Lines, Drains, and Airways Type Details Placement Removal PIV 03/29/24; 1632; unvd-ien-xjlggu catheter system; 20 gauge; median cubital vein (antecubital fossa), right; Anatomical Landmarks; US Not Used; DETENTION; distraction, tolerated well, appears comfortable, age-appropriate response; catheter/device intact, removed per patient, site care per policy/procedure; 04/02/24; 0949 03/29/24 1632 by Emiliana Spears LPN 04/02/24 0949 by Ramy Rutherford, RN ETT Mask Ventilation: Vishnu sabillon (1); ETT Type: Cuffed, Oral; ETT Size: 7.5 mm; Mac Blade: 4; Notes: Asleep, Pre-O2, RSI, Stylette; Attempts: 1; Laryngoscopy Grade: 2; ETT Placement Verified By: Auscultation, Capnometry, Visual; Secured at Teeth: 23 cm; Inserted by: Rashmi with ICU Fellow; Removal Date: 03/31/24; Removal Time: 1230 03/31/24 1041 by West Pedersen CRNA 03/31/24 1230 by West Pedersen CRNA documented in this encounter Social History Tobacco Use Types Packs/Day Years [...] on file documented as of this encounter OR Notes * Anesthesia Postprocedure Evaluation - Pj Caraballo MD - 03/31/2024 3:22 PM EDT Department of Anesthesiology Post-procedure Note Patient: Dylna Michele Procedure Summary Date: 03/31/24 Room / Location: [facility] ENDO 3 / [facility] ENDOSCOPY Anesthesia Start: 1033 Anesthesia Stop: 1232 Procedures: EGD, W US GUIDED FINE NEEDLE ASPIRATION/BIOPSY (WRVU 4.16) (Trunk) FLUOROSCOPY (WRVU 0.3) EGD, TRANSORAL; WITH PLACEMENT OF ENDOSCOPIC STENT (WRVU 3.92) (Esophagus) Diagnosis: (pancreas head mass) Surgeons: Eulogio Marcos MD Responsible Provider: Pj Caraballo MD Anesthesia Type: MAC ASA Status: 3 All Anesthesia Providers: Anesthesiologist: Pj Caraballo MD OBSERVER ELECTRICAL PROSPECTING: West Pedersen CRNA Vitals Value Taken Time BP 105/80 03/31/24 1250 Temp Pulse Resp 14 03/31/24 1245 SpO2 91 % 03/31/24 1254 Pain Level 0 03/31/24 1245 Vitals shown include unfiled device data. Patient Location: PACU/[facility] Level of Consciousness: Conscious but Sleepy Pain Management: Satisfactory Analgesia PONV: None Cardiovascular Status: Hemodynamically Stable Respiratory Status: Stable Respiratory Status Postoperative Fluid Status: Intravascular EUvolemia Possible Anesthetic Complications: NONE apparent at time of evaluation Final Primary Anesthesia Type: General (The anesthetic type performed was the same as planned.) Comments: * Anesthesia Preprocedure Evaluation - Pj Caraballo MD - 03/30/2024 9:03 PM EDT Pre-Anesthesia Evaluation for: Dylan Michele a 53 y.o. male. Procedure(s): UPPER EUS- ENDOSCOPIC ULTRASOUND (WRVU 3.47) Patient Active Problem List Diagnosis Date Noted ? ? *Nausea & vomiting 03/29/2024 No past medical history on file. No past surgical history on file. Social History Tobacco Use ??? Smoking status: Former Current packs/day: 0.50 Types: Cigarettes ??? Smokeless tobacco: Not on file Substance Use Topics ??? Alcohol use: Not Currently Alcohol/week: 182.0 standard drinks of alcohol Types: 182 Shots of liquor per week Social History Substance and Sexual Activity Drug Use Not Currently ??? Types: Marijuana Allergies Allergen Reactions ??? Nsaids (Non-Steroidal Anti-Inflammatory Drug) Other (See Comments) ??? Lactose ??? Prednisone Medications: MAR and/or home medications have been reviewed. Physical Exam: Preprocedure Vitals Current as of 03/30/24 2103 BP: 152/111 Pulse: Resp: 17 SpO2: 90 Temp: 36.6 ??C (97.9 ??F) Height: 180.3 cm (5' 11) (03/29/24) Weight: 122.9 kg (270 lb 15.1 oz) (03/30/24) BMI: 37.79 IBW: 75.3 kg (165 lb 14.8 oz) Last edited 03/30/241945 by CD Airway Assessment: Mallampati: I Cardiovascular Assessment: system normal Pulmonary Assessment: pulmonary exam normal Dental Assessment: Misc Assessment: Last Filed Perioperative Cognitive Screening None Anesthesia Plan: ASA 3 MAC, with a(n) intravenous induction 53 yr old M pmhx HFrEF (recovered on last echo) with newly diagnosed pancreatic head mass for EUS No anest records Planning prop mac. Of note, patient with bilateral LE pitting edema. Sats 100% on room air, lung clear, denies orhtopnea. Discussed r/b/a of proceeding. Patient requesting to proceed despite elevatedrisks. Region - Other Informed Consent: Anesthetic plan and risks discussed with patient. Use of blood products discussed with patient who consented to blood products. Plan discussed with OBSERVER ELECTRICAL PROSPECTING. Anesthesia Screening documented in this encounter Plan of Treatment Upcoming Encounters Date Type Department Care Team (Late st Contact Info) Description 05/20/2024 8:30 AM EDT Office Visit Hematology/Oncology at [address] [phone] Ministerio Kelly MD [facility] [place] [address] [address] HEMATOLOGY AND [place], [place] [phone] 05/20/2024 9:00 AM EDT Infusion Hematology Oncology at [address] [phone] 05/30/2024 1:00 PM EDT Tech [place] [address] Dena Graves 05/30/2024 4:00 PM EDT Office Visit [place] [phone] Derek Evans MD [facility] [place] [address] 06/03/2024 8:30 AM EDT Office Visit Hematology/Oncology at [address] [phone] Ministerio Kelly MD [facility] [place] [address] [address] HEMATOLOGY AND [place], [place] [phone] 06/03/2024 9:00 AM EDT Infusion Hematology Oncology at [address] [phone] documented as of this encounter Visit Diagnoses Not on filedocumented in this encounter Administered Medications Inactive Administered Medications - up to 3 most recent administrations Medication Order MAR Action Action Date Dose Rate Site ePHEDrine sulfate (5 mg/mL) multi-dose injection Intravenous, PRN, Starting on Margaret 03/31/24 at 1139, Until Margaret 03/31/24 at 1232, Anesthesia Intra-op, Routine Given 03/31/2024 11:55 AM EDT 5 mg Given 03/31/2024 11:45 AM EDT 5 mg Given 03/31/2024 11:39 AM EDT 10 mg lactated ringers infusion Intravenous, CONTINUOUS PRN, Starting on Margaret 03/31/24 at 1033, Until Margaret 03/31/24 at 1232, Anesthesia Intra-op New Bag 03/31/2024 10:33 AM EDT propofoL (Diprivan) (10 mg/mL) infusion Intravenous, CONTINUOUS PRN, Starting on Margaret 03/31/24 at 1040, Until Margaret 03/31/24 at 1232, Anesthesia Intra-op, Routine Rate/Dose Change 03/31/2024 11:55 AM EDT 150 mcg/kg/min 84.87 mL/hr Rate/Dose Change 03/31/2024 11:46 AM EDT 175 mcg/kg/min 99 .015 mL/hr Rate/Dose Change 03/31/2024 11:33 AM EDT 150 mcg/kg/min 84 .87 mL/hr propofoL (Diprivan) 10 mg/mL bolus injection (Anesthesia) Intravenous, PRN, Starting on Margaret 03/31/24 at 1040, Until Margaret 03/31/24 at 1232, Anesthesia Intra-op Given 03/31/2024 10:40 AM EDT 200 mg succinylcholine (Anectine;Quelicin) (20 mg/mL) injection Intravenous, PRN, Starting on Margaret 03/31/24 at 1040, Until Margaret 03/31/24 at 1232, Anesthesia Intra-op, Routine Given 03/31/2024 10:40 AM EDT 100 mg documented in this encounter Care Teams Design Verification Engineer Relationship Specialty Start Date End Date Cedric Rosenbaum DO [address] [place] [phone] PCP - General Family Medicine 03/29/24 documented as of this encounter
--- OUTSIDE RECORDS SUMMARY | 2024-05-14 12:58 | XMS_ITS | Encounter Summary ---
Author Organization [facility] Address [address] [place] [address] Care Team Providers Care Technology Development Intern Name Role Phone Paul Ribeiro MD Primary Care Provider [phone] Encounter Details Date Type Department Care Team (Late st Contact Info) Description 03/02/2024 Lab Requisition [facility] Pathology & Laboratory Medicine - [facility] [address] [place] [address] Outr Resulting Lab, Provider Social History Tobacco [...] Procedure Name Priority Date/Time Associated Diagnosis Comments CA 125 Routine 03/02/2024 9:20 EDT documented in this encounter Results * CA 125 (03/02/2024 9:20 EDT) CA 125 12 <30 U/mL 03/02/2024 22:36 EDT [facility] Comment: NOTE: Serum CA [...] Resulting Lab CHEMISTRY & BLOOD GAS ORDERABLES [facility] [address] [place] [address] documented in this encounter Visit Diagnoses Not on filedocumented in this encounter Care Teams Technology Development Intern Relationship Specialty Start Date End Date Paul Ribeiro MD PCP - General 06/26/14 documented as of this encounter
--- OUTSIDE RECORDS SUMMARY | 2024-05-14 12:58 | XMS_ITS | Encounter Summary ---
Author Organization [facility] Address [address] [place] [address] Care Team Providers Care Pipe Cleaner Name Role Phone Paul Ribeiro MD Primary Care Provider [phone] Encounter Details Date Type Department Care Team (Late st Contact Info) Description 03/10/2024 Lab Requisition [facility] Pathology & Laboratory Medicine - [facility] [address] [place] [address] Vincent Phipps, [place] [address] Encounter for other general examination Social History [...] :06 EDT Encounter for other general examination documented in this encounter Results * SURGICAL PATHOLOGY (03/10/2024 13:06 EDT) Note to Patient The following pathology results have been interpreted by your pathologist and may be available to you before your health provider has had the opportunity to review them. Please allow time for your provider to receive these results and explore management options, if applicable. 03/14/2024 11:42 EDT [facility] Final Diagnosis A. DUODENUM, BIOPSY: [...] - Fragments of tubular adenoma. 03/14/2024 11:42 [facility] Attestation By the signature below, the attending physician certifies that they have 1) personally conducted a gross and/or microscopic examination of the described specimen(s), and/or personally interpreted the results of laboratory testing of the described specimen(s), and 2) personally rendered or confirmed the above diagnosis. 03/14/2024 11:42 [facility] at 1142 Clinical History Bloating, screening, normal, colon polyps 03/14/2024 11:42 [facility] Gross Description A. Received [...] DAWNA STONE(ASCP) 03/11/2024 9:52 03/14/2024 11:42 EDT [facility] Performing Lab [facility] 03/14/2024 11:42 EDT [facility] Scanned Images 03/14/2024 11:42 EDT [facility] Tissue DESCENDING COLON STRUCTURE / [...] EDT Vincent Phipps DO PATHOLOGY ORDERABL ES [facility] [address] [place] [address] documented in this encounter Visit Diagnoses Diagnosis Encounter for other general examination documented in this encounter Care Teams Pipe Cleaner Relationship Specialty Start Date End Date Paul Ribeiro MD PCP - General 06/26/14 documented as of this encounter
--- OUTSIDE RECORDS SUMMARY | 2024-05-14 12:58 | XMS_ITS | Encounter Summary ---
[place] [address] Care Team Providers Care Steam Pan Sponger Name Role Phone Cedric Rosenbaum DO Primary Care Provider Reason for Referral * Consultation (Routine) - Closed Specialty Diagnoses / Procedures Referred By Ovidio dallas Referred To Contact Gastroenterology Diagnoses Other abnormal tumor markers ABD PAIN, 60LB WEIGHT LOSS, ELEVATED CA 19 9. David Pierce MD [address] [place] [address] [facility] [address] [place] [address] Referral ID Status Reason Start Date Expiration Date V isits Requested Visits Authorized [id number] Closed Consult, Test & Treat PCP Updated and/or Approved 03/21/2024 03/21/2025 6 6 Encounter Details Date Type Department Care Team (Latest Contact Info) Description 03/30/2024 Transcribe Orders eDH Incoming Referrals [phone] David Pierce MD [address] [place] [address] Other abnormal tumor markers Social History Tobacco Use Types Packs/Day Years [...] AM EDT Office Visit Hematology/Oncology at [address] [phone] Ministerio Kelly MD [facility] [place] [address] Katherine Guadarrama APRN [address] [place] [address] [place] [address] 05/20/2024 9:00 AM EDT Infusion Hematology Oncology at [address] [phone] 05/30/2024 1:00 PM EDT Tech [place] [phone] Dena Graves 05/30/2024 4:00 PM EDT Office [place] [phone] Derek Evans MD [facility] [place] [address] 06/03/2024 8:30 AM EDT Office Visit Hematology/Oncology at [address] [phone] Ministerio Kelly MD [facility] [place] [address] Katherine Guadarrama APRN [address] [place] [address] [place] [phone] 06/03/2024 9:00 AM EDT Infusion Hematology Oncology at [address] [phone] Scheduled Referrals Name Type Priority Associated Diagnoses Order Schedule Referral to Gastroenterology Outpatient Referral Routine Other abnormal tumor markers Ordered: 03/30/2024 documented as of this encounter Visit Diagnoses Diagnosis Other abnormal tumor markers documented in this encounter Care Teams Steam Pan Sponger Relationship Specialty Start Date End Date Cedric Rosenbaum DO [address] [place] [phone] PCP - General Family Medicine 03/29/24 documented as of this encounter
--- OUTSIDE RECORDS SUMMARY | 2024-05-14 12:58 | XMS_ITS | Encounter Summary ---
Author Organization [facility] Address [address] [place] [address] Care Team Providers Care Concrete Block Mason Name Role Phone Paul Ribeiro MD Primary Care Provider [phone] Encounter Details Date Type Department Care Team (Late st Contact Info) Description 03/03/2024 Lab Requisition [facility] Pathology & Laboratory Medicine - [facility] [address] [place] [address] Outr Resulting Lab, Provider Social History Tobacco [...] Procedure Name Priority Date/Time Associated Diagnosis Comments AFP TUMOR MARKER Routine 03/02/2024 9:21 EDT documented in this encounter Results * AFP TUMOR MARKER (03/02/2024 9:21 EDT) AFP Tumor Marker <2.5 <8.1 ng/mL 03/04/2024 9:08 EDT [facility] Comment: AFP Tumor Marker [...] Resulting Lab CHEMISTRY & BLOOD GAS ORDERABLES [facility] [address] [place] [address] documented in this encounter Visit Diagnoses Not on filedocumented in this encounter Care Teams Concrete Block Mason Relationship Specialty Start Date End Date Paul Ribeiro MD PCP - General 06/26/14 documented as of this encounter
--- OUTSIDE RECORDS SUMMARY | 2024-05-14 12:58 | XMS_ITS | Encounter Summary ---
[place] [address] Care Team Providers Care On Line Csr Name Role Phone Unavailable Primary Care Provider Unavailabl e Encounter Details Date Type Department Care Team (Late st Contact Info) Description 03/11/2024 Ancillary Procedure [place] [phone] Social History Tobacco Use Types Packs/Day Years [...] AM EDT Office Visit Hematology/Oncology at [address] [phone] Ministerio Kelly MD [facility] [place] [address] Katherine Guadarrama APRN [address] [place] [address] HEMATOLOGY AND ONGOLOCY [place], [place] [phone] 05/20/2024 9:00 AM EDT Infusion Hematology Oncology at [address] [phone] 05/30/2024 1:00 PM EDT Tech Visit Vascular Lab [place] [address] Dena Graves 05/30/2024 4:00 PM EDT Office Visit [place] [address] Derek Evans MD [facility] DR VASC[place] [address] 06/03/2024 8:30 AM EDT Office Visit Hematology/Oncology at [address] [phone] Ministerio Kelly MD [facility] [place] [address] Katherine Guadarrama APRN [address] [place] [address] DR [place]Y [place] [address] 06/03/2024 9:00 AM EDT Infusion Hematology Oncology at [address] [phone] documented as of this encounter Procedures Procedure Name Priority Date/Time Associated Diagnosis Comments FILM LIBRARY STORAGE ONLY CT CHEST STAT 03/11/2024 12:00 AM EDT documented in this encounter Results * Film Library- Storage Only CT Chest (03/11/2024 12:00 AM EDT) Narrative Dicom, Auditing User - 03/29/2024 9:52 PM EDT This exam is auto-finalizing. It's purpose is for storage only. Bernarda Gomez MD IMG FILM LIBRARY ORD ERABLES documented in this encounter Visit Diagnoses Not on filedocumented in this encounter
--- OUTSIDE RECORDS SUMMARY | 2024-05-14 12:58 | XMS_ITS | Encounter Summary ---
[place] [address] Care Team Providers Care Office Secretary Name Role Phone Unavailable Primary Care Provider Unavailabl e Reason for Referral * Diagnostic Test (Routine) - Closed Specialty Diagnoses / Procedures Referred By Contac t Referred To Contact Cardiology Diagnoses Hypotensive episode Procedures Mobile Echo Adrien Rodriguez MD [address] [place] [address] [facility] [place] [address] Referral ID Status Reason Start Date Expiration Date V isits Requested Visits Authorized [id number] Closed Specialty Service Requested 05/01/2023 04/30/2024 1 1 Reason for Visit * Diagnostic Test (Routine) - Closed Specialty Diagnoses / Procedures Referred By Contac t Referred To Contact Cardiology Diagnoses Hypotensive episode Procedures Mobile Adrien Serra MD [address] [place] [address] [facility] [place] [address] Referral ID Status Reason Start Date Expiration Date V isits Requested Visits Authorized [id number] Closed Specialty Service Requested 05/01/2023 04/30/2024 1 1 Encounter Details Date Type Department Care Team (Latest Contact Info) Description 05/01/2023 4:37 PM EDT - 05/01/2023 11:59 PM EDT Hospital Encounter Mobile [place] [address] Adrien Rodriguez MD [address] [place] [phone] Hypotensive episode Discharge Disposition: Home Social History Tobacco Use [...] AM EDT Office Visit Hematology/Oncology at [address] [address] Ministerio Kelly MD [facility] [place] [address] Katherine Guadarrama IRONER [address] [place] [address] DR [place] [address] 05/20/2024 9:00 AM EDT Infusion Hematology Oncology at [address] [phone] 05/30/2024 1:00 PM EDT Tech [place] [address] Dena Graves 05/30/2024 4:00 PM EDT Office [place] [phone] Derek Evans MD [facility] [place] [address] 06/03/2024 8:30 AM EDT Office Visit Hematology/Oncology at [address] [phone] Ministerio Kelly MD [facility] [place] [address] Katherine Guadarrama APRN [address] [place] [address] DR [place] [address] 06/03/2024 9:00 AM EDT Infusion Hematology Oncology at [address] [phone] documented as of this encounter Procedures Procedure Name Priority Date/Time Associated Diagnosis Comments ECHO COMPLETE Routine 05/01/2023 4:38 PM EDT Hypotensive episode documented in this encounter Results * ECHO COMPLETE (05/01/2023 4:38 PM EDT) Pathologist [facility] EF 62 HEARTLAB SYSTEM Anatomical Region Laterality Modality Other 05/01/2023 10:3 1 AM EDT Narrative 05/01/2023 5:05 PM EDT ? Echocardiogram Report Name: HIRO BLISS ?Study Date: 05/01/2023 10:31 AMBP: 99/77 mmHg ?Patient Location: 4A : 1970 ?Height: 180 cm ? Account: [id number] Age: 53 yrs ?Weight: 144 kg Gender: Male ? BSA: 2.6 m2 Ordering Physician: ADRIEN RODRIGUEZ Referring Physician: ADRIEN RODRIGUEZ Performed By: Libby Zhang RDCS Reason For Study: Chest pain. Interpreting Fellow: Ramy Nava. Exam Location: [facility]. Interpretation Summary 1. Global systolic function is preserved with an EF of 60-65% with normal wall motion. Diastolic function is normal. 2. RV normal in size with normal RV function. Pulmonary artery systolic pressures are normal. 3. No hemodynamically significant valve disease. 4. No pericardial effusion. Procedure Complete-[id number]. This study is limited because of body habitus. Irregular rhythm. Left Ventricle Left ventricle is of normal size. Wall thickness is mildly increased. Left ventricular size and systolic function is normal. Left ventricular ejection fraction is estimated visually at 60-65%. Global longitudinal strain is measured at 15.2 %. (Invesdor). Prior echo, 10/07/2022, EF = 60-65% with no wall motion abnormalities. There are no segmental wall motion abnormalities. Right Ventricle The right ventricle is of normal size. Right ventricular systolic function is normal. Left Atrium The left atrium is normal. No abnormality of the interatrial septum is identified. Right Atrium The right atrium is normal. Aortic Valve The aortic valve is tricuspid. It is minimally thickened. There is no aortic regurgitation. Mitral Valve The mitral valve is structurally normal. There is trace mitral regurgitation. Tricuspid Valve The tricuspid valve is structurally normal. There is trace tricuspid regurgitation. Pulmonic Valve The pulmonic valve appears to be structurally normal. There is trace pulmonic valve regurgitation. Great Arteries The aortic root is of normal size. No abnormalities are identified. Ascending aorta is normal in size. No abnormalities of the pulmonary artery are identified. Venous Inferior vena cava is dilated. Inferior vena cava collapse greater than 50% with respiration. Pericardium/Pleural The pericardium appears normal. Prominent epicardial fat pad. Hemodynamics The right ventricular systolic pressure is normal. Left ventricular diastolic function is normal. ? 2D Measurements ? Volumes ?IVSd: 1.4 cm ? LA Volume Index: ?LVIDd: 4.8 cm ?LVIDs: 3.2 cm ?22.1 ml/m2 ?LVPWd: 1.3 cm ?SV(LVOT): 105.0 ml ?LV mass(C)d: 262.1 grams ? LV Stroke Volume: ? 104.9 ml ?LV mass(C)dI: 102.1 grams/m2 ?? SI(LVOT): 40.9 ml/m2 ?Ao root diam: 3.5 cm ?Ao root diam index: 1.4 ?asc Aorta Diam: 3.3 cm ?LVOT diam: 2.3 cm ?TAPSE_phl: 2.4 cm Doppler ?3D/Strain/TomTec TR max marito: 156.9 cm/sec ??LV GLS (S3P): -15.2 % RVSP(TR): 17.8 mmHg LV V1 VTI: 24.5 cm LVOT max Velocity: 133.9 cm/sec MV E max marito: 66.0 cm/sec MV A max marito: 64.0 cm/sec MV E/A: 1.0 MV dec time: 0.18 sec Lat Peak E' Marito: 11.2 cm/sec E/ e' (lat): 5.9 Med Peak E' Marito: 8.7 cm/sec E/e' (med): 7.6 E/e' Average: 6.8 I ?WMSI = 1.00 ? % Normal = 100 ?Segments ??Size X - Cannot ?2 - ?4 - ?1-2 ? small Interpret ?1 - Normal ?? Hypokinetic 3 - Akinetic Dyskinetic ?? 3-5 ? moderate 5 - ? 6-14 ?large Aneurysmal ?15-16 ?? diffuse Procedure Note Ramy Mitchell MD - 05/01/2023 Echocardiogram Report Name: HIRO BLISS Study Date: 05/01/2023 10:31 AMBP:99/77 mmHg Patient Location: : 1970 Height: 180 cmAccount: [id number] Age: 53 yrs Weight: 144 kg Gender: Male BSA: 2.6 m2 Ordering Physician: ADRIEN RODRIGUEZ Referring Physician: ADRIEN RODRIGUEZ Performed By: Libby Zhang RDCS Reason For Study: Chest pain. Interpreting Fellow: Ramy Nava. Exam Location: [facility]. Interpretation Summary 1. Global systolic function is preserved with an EF of 60-65% with normalwall motion. Diastolic function is normal. 2. RV normal in size with normal RV function. Pulmonary artery systolicpressures are normal. 3. No hemodynamically significant valve disease. 4. No pericardial effusion. Procedure Complete-[id number]. This study is limited because of body habitus. Irregularrhythm. Left Ventricle Left ventricle is of normal size. Wall thickness is mildly increased.Left ventricular size and systolic function is normal. Left ventricularejection fraction is estimated visually at 60-65%. Global longitudinal strain ismeasured at 15.2 %. (Invesdor). Prior echo, 10/07/2022, EF = 60-65% with no wall motion abnormalities. There are no segmental wall motion abnormalities. Right Ventricle The right ventricle is of normal size. Right ventricular systolic functionis normal. Left Atrium The left atrium is normal. No abnormality of the interatrial septum isidentified. Right Atrium The right atrium is normal. Aortic Valve The aortic valve is tricuspid. It is minimally thickened. There is noaortic regurgitation. Mitral Valve The mitral valve is structurally normal. There is trace mitralregurgitation. Tricuspid Valve The tricuspid valve is structurally normal. There is trace tricuspid regurgitation. Pulmonic Valve The pulmonic valve appears to be structurally normal. There is tracepulmonic valve regurgitation. Great Arteries The aortic root is of normal size. No abnormalities are identified.Ascending aorta is normal in size. No abnormalities of the pulmonary artery areidentified. Venous Inferior vena cava is dilated. Inferior vena cava collapse greater than50% with respiration. Pericardium/Pleural The pericardium appears normal. Prominent epicardial fat pad. Hemodynamics The right ventricular systolic pressure is normal. Left ventriculardiastolic function is normal. 2D Measurements Volumes IVSd: 1.4 cm LA VolumeIndex: LVIDd: 4.8 cm LVIDs: 3.2 cm 22.1 ml/m2 LVPWd: 1.3 cm SV(LVOT): 105.0ml LV mass(C)d: 262.1 grams LV StrokeVolume: 104.9 ml LV mass(C)dI: 102.1 grams/m2 SI(LVOT): 40.9ml/m2 Ao root diam: 3.5 cm Ao root diam index: 1.4 asc Aorta Diam: 3.3 cm LVOT diam: 2.3 cm TAPSE_phl: 2.4 cm Doppler 3D/Strain/TomTec TR max marito: 156.9 cm/sec LV GLS (S3P): -15.2 % RVSP(TR): 17.8 mmHg LV V1 VTI: 24.5 cm LVOT max Velocity: 133.9 cm/sec MV E max marito: 66.0 cm/sec MV A max marito: 64.0 cm/sec MV E/A: 1.0 MV dec time: 0.18 sec Lat Peak E' Marito: 11.2 cm/sec E/ e' (lat): 5.9 Med Peak E' Marito: 8.7 cm/sec E/e' (med): 7.6 E/e' Average: 6.8 I WMSI = 1.00 % Normal = 100 SegmentsSize X - Cannot 2 - 4 - 1-2small Interpret 1 - Normal Hypokinetic 3 - Akinetic Dyskinetic 3-5moderate 5 - 6-14large Aneurysmal 15-16diffuse Adrien Rodriguez MD ECHO ORDERABLES documented in this encounter Visit Diagnoses Diagnosis Hypotensive episode Hypotension, unspecified documented in this encounter
--- OUTSIDE RECORDS SUMMARY | 2024-05-14 12:58 | XMS_ITS | Encounter Summary ---
Author Organization [facility] Address [address] [place] [address] Care Team Providers Care Taxi Servicer Name Role Phone Paul Ribeiro MD Primary Care Provider [phone] Encounter Details Date Type Department Care Team (Late st Contact Info) Description 08/07/2020 Lab Requisition [facility] Pathology & Laboratory Medicine - [facility] [address] [place] [address] Telma Seaman MD [address] [place] [id number] Encounter for screening for other viral diseases Social History Tobacco Use Types Packs/Day Years [...] ORDER STANDALONE - BROAD COVID TEST Today 08/07/2020 10:30 EDT Encounter for screening for other viral diseases COVID-19 TESTING Today 08/07/2020 10:3 0 EDT Encounter for screening for other viral diseases documented in this encounter Results * DO NOT ORDER STANDALONE - BROAD COVID TEST (08/07/2020 10:30 EDT) COVID-19 rt-PCR Result NEGATIVE Negative 08/09/2020 6:27 EDT [facility] Comment: 2019-novel Coronavirus (2019-nCoV) [...] in accordance with CLIA regulations, [employer] (CAP) guidelines (Jan 19, 2020), and FDA guidance (Dec 31, 2019). This test is only for use under the Food and Drug Administration's Emergency Use Authorization. Swab ENTIRE NASOPHARYNX / Unknown 08/07/2020 10:30 EDT 08/07/2020 22:52 EDT Telma Seaman MD MICROBIOLOGY - GENER AL ORDERABLES [facility] [place], [place] * COVID-19 TESTING (08/07/2020 10:30 EDT) COVID-19 rt-PCR Result NEGATIVE Negative 08/09/2020 7:56 EDT [facility] Comment: 2019-novel Coronavirus (2019-nCoV) not [...] in accordance with CLIA regulations, [employer] (CAP) guidelines (Jan 19, 2020), and FDA guidance (Dec 31, 2019). This test is only for use under the Food and Drug Administration's Emergency Use Authorization. Performing Lab [facility] 08/09/2020 7:56 EDT [facility] Swab ENTIRE NASOPHARYNX / Unknown 08/07/2020 10:30 EDT 08/07/2020 22:52 EDT Telma Seaman MD MICROBIOLOGY - GENER AL ORDERABLES [facility] [address] [place], [place] [id number] [place] [address] LABORATORY [place] documented in this encounter Visit Diagnoses Diagnosis Encounter for screening for other viral diseases documented in this encounter Care Teams Taxi Servicer Relationship Specialty Start Date End Date Paul Ribeiro MD PCP - General 06/26/14 documented as of this encounter
--- OUTSIDE RECORDS SUMMARY | 2024-05-14 12:58 | XMS_ITS | Encounter Summary ---
[place] [address] Care Team Providers Care Shipping Track Supervisor Name Role Phone Cedric Rosenbaum DO Primary Care Provider [phone] Reason for Visit * Reason Onset Date Comments Request For Record 03/30/2024 [facility] Encounter Details Date Type Department Care Team (Late st Contact Info) Description 03/30/2024 [place] [phone] Marisabel Granados CMA Request For Record ([facility]) Social History Tobacco Use Types Packs/Day Years [...] encounter Miscellaneous Notes * Telephone Encounter - Marisabel Granados CMA - 03/30/2024 3:18 PM EDTSummary: Urgent Request for Records [place], [place] [address] To whom it may concern: THIS IS AN URGENT/STAT/ACUTE REQUEST PATIENT IS CURRENTLY ADMITTED TO THE HOSPITAL. WE WOULD LIKE RECORDS FREDRICK. Patient is currently admitted in our facility, attending hospitalist Dr. Ayala, is requesting records from your office/facility. Please include the following: [] Labs [] Discharge Summary [] Reports/Studies [x] Other : need CD of prior [place] [facility] a/p from November 2023 Patient name: Dylan Michele Patient : 1970 Thank you, Martina Granados CMA [facility] [place] [address] documented in this encounter Plan of Treatment Upcoming Encounters Date Type Department Care Team (Late st Contact Info) Description 05/20/2024 8:30 AM EDT Office Visit Hematology/Oncology at [address] [phone] [facility] [place] [address] Katherine Guadararma APRN [address] [place] [address] DR HEMATOLOGY [place] [address] 05/20/2024 9:00 AM EDT Infusion Hematology Oncology at [address] [phone] 05/30/2024 1:00 PM EDT Tech Visit [place] [address] Dena Graves 05/30/2024 4:00 PM EDT Office Visit [place] [address] [facility] [place] [address] 06/03/2024 8:30 AM EDT Office Visit Hematology/Oncology at [address] [phone] [facility] [place] [address] Katherine Guadarrama APRN [address] [place] [address] DR HEMATOLOGY AND ONGOLOCY [place] [phone] 06/03/2024 9:00 AM EDT Infusion Hematology Oncology at [address] [phone] documented as of this encounter Visit Diagnoses Not on filedocumented in this encounter Care Teams Shipping Track Supervisor Relationship Specialty Start Date End Date Cedric Rosenbaum DO [address] [place] [address] PCP - General Family Medicine 03/29/24 documented as of this encounter
--- OUTSIDE RECORDS SUMMARY | 2024-05-14 12:58 | XMS_ITS | Encounter Summary ---
[place] [address] Care Team Providers Care Access Tech Name Role Phone Unavailable Primary Care Provider Unavailabl e Encounter Details Date Type Department Care Team (Late st Contact Info) Description 12/15/2023 Ancillary Procedure [place] [phone] Social History Tobacco Use Types Packs/Day Years [...] 8:30 AM EDT Office Visit Hematology/Oncology at [address] [phone] Ministerio Kelly MD [facility] [place] [address] Katherine Guadarrama APRN [address] [place] [address] HEMATOLOGY AND ONGOLOCY [place], [place] [phone] 05/20/2024 9:00 AM EDT Infusion Hematology Oncology at [address] [phone] 05/30/2024 1:00 PM EDT Tech Visit Vascular Lab [place] [facility] [place] [address] Dena Graves Leila 05/30/2024 4:00 PM EDT Office Visit [place] [address] Derek Evans MD [facility] [place] [address] 06/03/2024 8:30 AM EDT Office Visit Hematology/Oncology at [address] [phone] Ministerio Kelly MD [facility] [place] [address] Katherine Guadarrama APRN [address] [place] [address] DR [place] [address] 06/03/2024 9:00 AM EDT Infusion Hematology Oncology at [address] [phone] documented as of this encounter Procedures Procedure Name Priority Date/Time Associated Diagnosis Comments FILM LIBRARY STORAGE ONLY CT ABDOMEN AND PELVIS Routine 12/15/2023 12:00 AM EST documented in this encounter Results * Film Library- Storage Only CT Abdomen & Pelvis (12/15/2023 12:00 AM EST) Narrative Dicom, Auditing User - 03/31/2024 4:56 PM EDT This exam is auto-finalizing. It's purpose is for storage only. Emerson Ayala MD IMG FILM LIBRARY O RDERABLES documented in this encounter Visit Diagnoses Not on filedocumented in this encounter
--- OUTSIDE RECORDS SUMMARY | 2024-05-14 12:58 | XMS_ITS | Encounter Summary ---
[place] [address] Care Team Providers Care Foundry Process Engineer Name Role Phone Unavailable Primary Care Provider Unavailabl e Reason for Referral * Consultation (Routine) - Closed Specialty Diagnoses / Procedures Referred By Ovidio dallas Referred To Contact Vascular Surgery Diagnoses Peripheral vascular disease, unspecified Peripheral venous insufficiency ROUTINE, DANI POLLARD Sara A, DPM [address] [facility] [address] [place] [address] [facility] [address] [place] [address] Referral ID Status Reason Start Date Expiration Date V isits Requested Visits Authorized [id number] Closed Consult, Test & Treat 07/07/2023 07/06/2024 1 1 Encounter Details Date Type Department Care Team (Latest Contact Info) Description 07/07/2023 Transcribe Orders eDH Incoming Referrals [phone] Munira Queen DPM [address] [facility] [address] [place] [address] Peripheral vascular disease, unspecified; Peripheral venous insufficiency Social History Tobacco Use Types Packs/Day Years [...] 8:30 AM EDT Office Visit Hematology/Oncology at [address] [phone] Ministerio Kelly MD [facility] [place] [address] Katherine Guadarrama [address] HEMATOLOGY AND [place] [phone] 05/20/2024 9:00 AM EDT Infusion Hematology Oncology at [address] [phone] 05/30/2024 1:00 PM EDT Tech [place] [phone] Dena Graves 05/30/2024 4:00 PM EDT Office [place] [address] Derek Evans MD [facility] [place] [address] 06/03/2024 8:30 AM EDT Office Visit Hematology/Oncology at [address] [phone] Ministerio Kelly MD [facility] [place] [address] Katherine Guadarrama [address] [place], [place] [phone] 06/03/2024 9:00 AM EDT Infusion Hematology Oncology at [address] [phone] Scheduled Referrals Name Type Priority Associated Diagnoses Orde r Schedule Referral to Vascular Surgery Outpatient Referral Routine Peripheral vascular disease, unspecified Peripheral venous insufficiency Ordered: 07/07/2023 documented as of this encounter Visit Diagnoses Diagnosis Peripheral vascular disease, unspecified Peripheral venous insufficiency Unspecified venous (peripheral) insufficiency documented in this encounter
--- OUTSIDE RECORDS SUMMARY | 2024-05-14 12:58 | XMS_ITS | Encounter Summary ---
Author Organization [facility] [place] [address] Care Team Providers Care Neck Band Setter Name Role Phone Unavailable Primary Care Provider Unavailabl e Encounter Details Date Type Department Care Team (Late st Contact Info) Description 03/11/2024 12:05 AM EDT Ancillary Procedure [place] [phone] Social History Tobacco Use Types Packs/Day Years [...] 8:30 AM EDT Office Visit Hematology/Oncology at [address] [phone] Ministerio Kelly MD [facility] [place] [address] Katherine Guadarrama APRN [address] [place] [address] HEMATOLOGY AND ONGOLOCY [place], [place] [phone] 05/20/2024 9:00 AM EDT Infusion Hematology Oncology at [address] [phone] 05/30/2024 1:00 PM EDT Tech [place] [address] Dena Graves 05/30/2024 4:00 PM EDT Office Visit [place] [address] Derek Evans MD [facility] [place] [address] 06/03/2024 8:30 AM EDT Office Visit Hematology/Oncology at [address] [phone] Ministerio Kelly MD [facility] [place] [address] Katherine Guadarrama APRN [address] [place] [address] DR HEMATOLOGY [place] [address] 06/03/2024 9:00 AM EDT Infusion Hematology Oncology at [address] [phone] documented as of this encounter Procedures Procedure Name Priority Date/Time Associated Diagnosis Comments FILM LIBRARY STORAGE ONLY ULTRASOUND STUDY STAT 03/11/2024 12:05 AM EDT documented in this encounter Results * Film Library- Storage Only Ultrasound Study (03/11/2024 12:05 AM EDT) Narrative Dicom, Auditing User - 03/29/2024 9:54 PM EDT This exam is auto-finalizing. It's purpose is for storage only. Bernarda Gomez MD IMG FILM LIBRARY ORD ERABLES documented in this encounter Visit Diagnoses Not on filedocumented in this encounter
--- OUTSIDE RECORDS SUMMARY | 2024-05-14 12:58 | XMS_ITS | Referral Summary ---
Author Organization [facility] Address [address] [place] [address] Care Team Providers Care Psychic Reader Name Role Phone Paul Ribeiro MD Primary Care Provider [phone] Encounters Date Type Department Care Team Description 03/10/2024 Lab Requisition [facility] Pathology & Laboratory [address] [address] Vincent Phipps DO Encounter for other general examination 03/03/2024 Lab Requisition [facility] Pathology & Laboratory [address] [address] Outr Resulting Lab, Provider 03/02/2024 Lab Requisition [facility] Pathology & Laboratory [facility] [address] [place] [address] Outr Resulting Lab, Provider from Last 3 Months Social History Tobacco Use Types Packs/Day Years Used Date Smoking Tobacco: Never Assessed Interpersonal Safety Answer Date Record ed Physically Hurt Never 08/26/2020 Verbally Threaten Not on file 08/26/2020 Sex and Gender Information Value Date Recorded Sex Assigned at Not on file Gender Identity Not on file Sexual Orientation Not on file Plan of Treatment Not on file Procedures Procedure Name Priority Date/Time Associated Diagnosis [...] explore management options, if applicable. 03/14/2024 11:42 [facility] Final Diagnosis A. DUODENUM, [...] - Fragments of tubular adenoma. 03/14/2024 11:42 [facility] Attestation By the signature below, the attending physician certifies that they have 1) personally conducted a gross and/or microscopic examination of the described specimen(s), and/or personally interpreted the results of laboratory testing of the described specimen(s), and 2) personally rendered or confirmed the above diagnosis. 03/14/2024 11:42 [facility] at 1142 Clinical History Bloating, screening, normal, colon polyps 03/14/2024 11:42 [facility] Gross Description A. Received [...] DAWNA STONE(ASCP) 03/11/2024 9:52 03/14/2024 11:42 EDT [facility] Performing Lab [facility] 03/14/2024 11:42 EDT [facility] Scanned Images 03/14/2024 11:42 EDT [facility] Tissue DESCENDING COLON STRUCTURE [...] EDT Vincent Phipps DO PATHOLOGY ORDERABL ES [facility] [address] [place] [phone] * AFP TUMOR MARKER (03/02/2024 9:21 EDT) AFP Tumor Marker <2.5 <8.1 ng/mL 03/04/2024 9:08 EDT [facility] Comment: AFP Tumor Marker [...] & BLOOD GAS ORDERABLES Performing Organization Address [facility]/ZIP Co de Phone Number [facility] [address] [place], [place] [address] * CA 125 (03/02/2024 9:20 EDT) CA 125 12 <30 U/mL 03/02/2024 22:36 EDT [facility] Comment: NOTE: Serum CA [...] & BLOOD GAS ORDERABLES Performing Organization Address [facility] de Phone Number [facility] [address], [place] [address] from Last 3 Months Care Teams Psychic Reader Relationship Specialty Start Date End Date Paul Ribeiro MD PCP - General 06/26/14
--- OUTSIDE RECORDS SUMMARY | 2024-05-14 12:58 | XMS_ITS | Encounter Summary ---
Author Organization [facility] Address [address] [place] [address] Care Team Providers Care Spanish Tutor Name Role Phone Paul Ribeiro MD Primary Care Provider Encounter Details Date Type Department Care Team (Latest Contact Info) Description 06/26/2014 15:55 EDT - 06/26/2014 23:59 EDT Hospital Encounter [address] [address] Unknown, Provider, Discharge Disposition: Home or Self Care Social History Tobacco Use Types Packs/Day Years Used Date Smoking Tobacco: Never Assessed Sex and Gender Information Value Date Recorded Sex Assigned at Not on file Gender Identity Not on file Sexual Orientation Not on file documented as of this encounter Discharge Disposition Disposition Code Departure Means Destination Home or Self [facility] documented in this encounter Plan of Treatment Not on file documented as of this encounter Visit Diagnoses Not on filedocumented in this encounter Care Teams Spanish Tutor Relationship Specialty Start Date End Date Paul Ribeiro MD PCP - General 06/26/14 documented as of this encounter
--- OUTSIDE RECORDS SUMMARY | 2024-05-14 12:58 | XMS_ITS | Encounter Summary ---
[place] [address] Care Team Providers Care Patient Support Assistant Name Role Phone Unavailable Primary Care Provider Unavailabl e Reason for Referral * Diagnostic Test (Routine) - Authorized Specialty Diagnoses / Procedures Referred By Contac t Referred To Contact Diagnoses Venous insufficiency of both lower extremities Procedures Venous Valvular Incomp, Bilat Legs Macy Jj APRN [facility] [place] [place] [address] [facility] Vascular Lab [address] [place] [phone] Referral ID Status Reason Start Date Expiration Date Visits Requested Visits Authorized [id number] Authorized Specialty Service Requested 07/08/2023 07/07/2024 1 1 Encounter Details Date Type Department Care Team (Late st Contact Info) Description 07/08/2023 Orders [place] [address] Macy Jj STONECUTTER HAND [facility] [address] Venous insufficiency of both lower extremities Social History Tobacco Use Types Packs/Day Years [...] 8:30 AM EDT Office Visit Hematology/Oncology at [address] [phone] Ministerio Kelly MD [facility] [place] [address] [address] HEMATOLOGY AND [place], [place] [phone] 05/20/2024 9:00 AM EDT Infusion Hematology Oncology at [address] [phone] 05/30/2024 1:00 PM EDT Tech [place] [address] Dena Graves 05/30/2024 4:00 PM EDT Office [place] [address] Derek Evans MD [facility] [place] [address] 06/03/2024 8:30 AM EDT Office Visit Hematology/Oncology at [address] [phone] Ministerio Kelly MD [facility] [place] [address] [address] HEMATOLOGY AND [place], [place] [phone] 06/03/2024 9:00 AM EDT Infusion Hematology Oncology at [address] [phone] documented as of this encounter Visit Diagnoses Diagnosis Venous insufficiency of both lower extremities documented in this encounter
--- OUTSIDE RECORDS SUMMARY | 2024-05-14 12:58 | XMS_ITS | Encounter Summary ---
Author Organization [facility] Address [address] [place] [address] Care Team Providers Care Training Instructor Name Role Phone Paul Ribeiro MD Primary Care Provider [phone] Encounter Details Date Type Department Care Team (Late st Contact Info) Description 10/23/2020 Lab Requisition [facility] Pathology & Laboratory Medicine - [facility] [address] [place] [address] Telma Seaman MD [address] [place] [phone] Contact with and (suspected) exposure to other viral communicable diseases Social History Tobacco Use Types Packs/Day [...] ORDER STANDALONE - BROAD COVID TEST Today 10/23/2020 4:44 EST Contact with and (suspected) exposure to other viral communicable diseases COVID-19 TESTING Today 10/23/2020 4:44 EST Contact with and (suspected) exposure to other viral communicable diseases documented in this encounter Results * DO NOT ORDER STANDALONE - BROAD COVID TEST (10/23/2020 4:44 EST) COVID-19 rt-PCR Result NEGATIVE Negative 10/24/2020 21:18 EST [facility] Comment: 2019-novel Coronavirus [...] in accordance with CLIA regulations, [employer] (CAP) guidelines (Jan 19, 2020), and FDA guidance (Dec 31, 2019). This test is only for use under the Food and Drug Administration's Emergency Use Authorization. Swab NASAL / Unknown Swab / Unknown 10/23/2020 4:44 EST 10/23/2020 21:33 EST Telma Seaman MD MICROBIOLOGY - [facility] AL ORDERABLES [facility] [place], [place] * COVID-19 TESTING (10/23/2020 4:44 EST) COVID-19 rt-PCR Result NEGATIVE Negative 10/25/2020 0:19 EST [facility] Comment: 2019-novel Coronavirus (2019-nCoV) not detected [...] in accordance with CLIA regulations, [employer] (CAP) guidelines (Jan 19, 2020), and FDA guidance (Dec 31, 2019). This test is only for use under the Food and Drug Administration's Emergency Use Authorization. Performing Lab [facility] 10/25/2020 0:19 EST [facility] Swab NASAL / Unknown Swab / Unknown 10/23/2020 4:44 EST 10/23/2020 21:33 EST Telma Seaman MD MICROBIOLOGY - GENER AL ORDERABLES Performing Organization Address City/State/[facility] Co de Phone Number [facility] [address] [place] [phone] [place] [address] LABORATORY [place], [place] documented in this encounter Visit Diagnoses Diagnosis Contact with and (suspected) exposure to other viral communicable diseases documented in this encounter Care Teams Training Instructor Relationship Specialty Start Date End Date Paul Ribeiro MD PCP - General 06/26/14 documented as of this encounter
--- OUTSIDE RECORDS SUMMARY | 2024-05-14 12:58 | XMS_ITS | Encounter Summary ---
Author Organization [facility] Address [facility] [place] [address] Care Team Providers Care Cost Control Supervisor Name Role Phone Cedric Rosenbaum DO Primary Care Provider [phone] Encounter Details Date Type Department Care Team (Latest Contact Info) Description 03/29/2024 Travel Social History Tobacco Use Types Packs/Day Years Used Date Smoking Tobacco: Never Assessed PRAPARE - Transportation Answer Date Re corded [...] 8:30 AM EDT Office Visit Hematology/Oncology at [address] [phone] Ministerio Kelly MD [facility] [place] [address] [address] HEMATOLOGY AND [place], [place] [phone] 05/20/2024 9:00 AM EDT Infusion Hematology Oncology at [address] [phone] 05/30/2024 1:00 PM EDT Tech [place] [address] Dena Graves 05/30/2024 4:00 PM EDT Office [place] [address] Derek Evans MD [facility] [place] [place] [address] 06/03/2024 8:30 AM EDT Office Visit Hematology/Oncology at [address] [phone] Ministerio Kelly MD [facility] [place] [address] [address] HEMATOLOGY AND [place], [place] [phone] 06/03/2024 9:00 AM EDT Infusion Hematology Oncology at [address] [phone] documented as of this encounter Visit Diagnoses Not on filedocumented in this encounter Care Teams Cost Control Supervisor Relationship Specialty Start Date End Date Cedric Rosenbaum DO [address] [place] [phone] PCP - General Family Medicine 03/29/24 documented as of this encounter
--- OUTSIDE RECORDS SUMMARY | 2024-05-14 12:58 | XMS_ITS | Encounter Summary ---
[place] [address] Care Team Providers Care Usability Specialist Name Role Phone Cedric Rosenbaum DO Primary Care Provider Reason for Referral * Consultation (Routine) - Closed Specialty Diagnoses / Procedures Referred By Contubaldo t Referred To Contact Hematology and Oncology Diagnoses Acute abdominal pain Pancreatic mass Diamond Oconnor APRN [address] [place] [address] [facility] Hem Onc [address] [place] [address] Referral ID Status Reason Start Date Expiration Date V isits Requested Visits Authorized [id number] Closed Consult, Test & Treat 03/30/2024 03/30/2025 1 1 Encounter Details Date Type Department Care Team (Latest Contact Info) Description 03/30/2024 Transcribe Orders eDH Incoming Referrals [phone] Diamond Oconnor APRN [address] [place] [address] Acute abdominal pain; Pancreatic mass Social History Tobacco Use Types Packs/Day Years [...] things needed for daily living? No 03/30/2024 [facility] Inpatient Questions Answer Date Recorded Does Anyone [...] AM EDT Office Visit Hematology/Oncology at [address] [phone] Ministerio Kelly MD [facility] [place] [address] Katherine Guadarrama APRN [address] [place] [address] DR [place] [address] 05/20/2024 9:00 AM EDT Infusion Hematology Oncology at [address] [phone] 05/30/2024 1:00 PM EDT Tech [place] [address] Dena Graves 05/30/2024 4:00 PM EDT Office [place] [address] Derek Evans MD [facility] [place] [address] 06/03/2024 8:30 AM EDT Office Visit Hematology/Oncology at [address] [phone] Ministerio Kelly MD [facility] [place] [address] Katherine Guadarrama APRN [address] [place] [address] HEMATOLOGY AND ONGOLOCY [place], [place] [phone] 06/03/2024 9:00 AM EDT Infusion Hematology Oncology at [address] [phone] Scheduled Referrals Name Type Priority Associated Diagnoses Order Schedule Referral to Hematology and Oncology Outpatient Referral Routine Acute abdominal pain Pancreatic mass Ordered: 03/30/2024 documented as of this encounter Visit Diagnoses Diagnosis Acute abdominal pain Abdominal pain, unspecified site Pancreatic mass Unspecified disease of pancreas documented in this encounter Care Teams Usability Specialist Relationship Specialty Start Date End Date Cedric Rosenbaum DO [address] [place] [phone] PCP - General Family Medicine 03/29/24 documented as of this encounter
--- OUTSIDE RECORDS SUMMARY | 2024-05-14 12:58 | XMS_ITS | Encounter Summary ---
[place] [address] Care Team Providers Care Diamond Sander Name Role Phone Cedric Rosenbaum DO Primary Care Provider [phone] Reason for Visit * Reason Comments Weight Loss Bloated * Auth/Cert (Routine) Specialty Diagnoses / Procedures Referred By Ovidio dallas Referred To Contact Diagnoses Nausea & vomiting Procedures ER IPI Marck Mckeon MD [facility] [place] [address] [facility] Referral ID Status Reason Start Date Expiration Date Visits Re quested Visits Authorized [id number] 1 1 Encounter Details Date Type Department Care Team (Late st Contact Info) Description 03/31/2024 10:30 AM EDT - 03/31/2024 11:30 AM EDT Surgery [place] [id number] Eulogio Marcos MD [facility] GASTROENTEROLOGY [place] [address] EGD, W US GUIDED FINE NEEDLE ASPIRATION/BIOPSY (WRVU 4.16) Social History Tobacco Use Types Packs/Day Years [...] Sign Reading Time Taken Comments Blood Pressure 146/100 03/31/2024 9:50 AM EDT Pulse 66 03/31/2024 9:50 AM EDT Temperature 36.6 ??C (97.9 ??F) 03/31/2024 9 :50 AM EDT Respiratory Rate 14 03/31/2024 9:50 AM EDT Oxygen Saturation 99% 03/31/2024 9:5 0 AM EDT Inhaled Oxygen Concentration - - Weight 122.9 kg (270 lb 15. 1 oz) 03/30/2024 12:20 AM EDT With shoes Height 180.3 cm (5' 11) 03/29/2024 4:2 1 PM EDT Body Mass Index 39.23 03/29/2024 4:21 PM EDT documented in this encounter Discharge Summaries * Emerson Ayala MD - 04/06/2024 10:39 AM EDT Discharge Summary Patient Name: Dylan Michele Patient Age: 53 y.o. Language: [place] Islander Race: White Ethnicity: Not nor Admit date: 03/29/2024 Discharge date and time: 04/06/2024 Attending Physician: Emerson Ayala MD Discharge Physician: mEerson Ayala Follow-up Recommendations for Providers: Continued follow up for management of surgery and surgical oncology Inpatient Provider Contact Information: For questions regarding this document or issues relating to this hospitalization on the Medical Service, please contact your inpatient physician through [place] [facility] [place] . Issues afterhours and on weekends will [...] 03/29/2024 9:34 PM) Result Value WORKSTATION ID [id number] Impression No acute finding. Preliminary report signed [...] have questions please contact the health career information specialist that requested your imaging first. Electronically signed by: Kelsie Goodman MD, [facility] ([phone]), at 03/29/2024 10:[address] Chest wo Contrast (Generic) (Exam End: 03/31/2024 5:35 PM) Result Value WORKSTATION ID [id number] Impression No evidence for intrathoracic metastasis Thank you for letting us participate in the care of this patient. If you are a health care provider and have any questions regarding this report, please contact the number below. For patients who have questions please contact the health career information specialist that requested your imaging first. Request For 2nd Read CT Abdomen & Pelvis (Exam End: 03/31/2024 5:05 PM) Result Value WORKSTATION ID [id number] Impression 1. Increased size of the primary [...] have questions please contact the health career information specialist that requested your imaging first. Electronically signed by: CHRYSTAL RODRIGUEZ MD, [facility] ([phone]), at 04/01/2024 8:51 AM XR Abdomen 1 view Contrast Challenge (Exam End: 04/01/2024 4:58 PM) Result Value WORKSTATION ID [id number] Impression No radiographic evidence of obstruction. Paucity of small bowel gas. Oral contrast scattered throughout the large bowel and rectum. Thank you for letting us participate in the care of this patient. If you are a health care provider and have any questions regarding this report, please contact the number below. For patients who have questions please contact the health career information specialist that requested your imaging first. Electronically signed by: Paul Rodriguez DO, [facility] ([phone]), at 04/01/2024 5:12 PM XR Abdomen 1 view Contrast Challenge (Exam End: 04/01/2024 11:15 PM) Result Value WORKSTATION ID [id number] Impression No small bowel obstruction. Enteric contrast column within the nondilated descending and sigmoid colon. Thank you for letting us participate in the care of this patient. If you are a health care provider and have any questions regarding this report, please contact the number below. For patients who have questions please contact the health career information specialist that requested your imaging first. Abdomen 1 view Contrast Challenge (Exam End: 04/02/2024 5:37 AM) Result Value WORKSTATION ID [id number] Impression No small bowel obstruction. Enteric contrast column within the nondilated descending and sigmoid colon. Thank you for letting us participate in the care of this patient. If you are a health care provider and have any questions regarding this report, please contact the number below. For patients who have questions please contact the health career information specialist that requested your imaging first. Abdomen 1 view Contrast Challenge (Exam End: 04/02/2024 10:54 AM) Result Value WORKSTATION ID [id number] Impression Nonobstructive bowel gas pattern. Minimal residual contrast remains in the descending and rectosigmoid colon. Thank you for letting us participate in the care of this patient. If you are a health care provider and have any questions regarding this report, please contact the number below. For patients who have questions please contact the health career information specialist that requested your imaging first. Electronically signed by: Katherine Salazar MD, [facility] ([phone]), at 04/02/2024 5:05 PM 03/11 CT chest [...] Center 04/20/2024 2:45 PM Ministerio Kelly MD [facility] [place] [facility] 05/09/2024 12:30 PM Alysha Hayes [facility] VAS LAB [facility] 05/09/2024 2:30 PM Kaylin Boggs MD [facility] [place] [facility] Your Inpatient Doctor: Emerson Ayala MD Your Primary Care Provider: Cedric Rosenbaum, For questions regarding this document or issues relating to this hospitalization on the Medical Service, please contact your inpatient physician through the [facility] [place] Relief [place] . Issues afterhours and on weekends will [...] any issues or concerns once you leave [facility], we apologize for any undue stress this may cause. Please do not hesitate to call your PCP office or seek further medical assistance if there are any [facility]. This questionnaire is not meant to [...] Ministerio Kelly MD Hematology and Oncology at [facility] Arrive at: [place] [facility] 3K [phone] 05/09/2024 12:30 PM Alysha Hayes Vascular Lab at [facility] Arrive at: [place] [facility] 3V [phone] 05/09/2024 2:30 PM Kaylin Boggs MD Vascular Surgery at [facility] Arrive at: [place] [facility] 3V [phone] Check-in: [place] 3V. Future Orders Complete By Expires Referral to General Surgery [REF27 Custom] As directed Process Instructions: If no progress note charted, please enter Clinical details in comments. If you are requesting vascular access please answer the VAD questions Due to the OR limitations at the [facility], if you are considering surgery for this patient, and their BMI is greater than 50, please refer to [facility] (or a division other than [facility]). Scheduling Instructions: Questions: Are you seeking Vascular [...] Center 04/20/2024 2:45 PM Ministerio Kelly MD [facility] [place] [facility] 05/09/2024 12:30 PM Alysha Hayes [facility] VAS LAB [place] 05/09/2024 2:30 PM Kaylin Boggs MD [facility] [place] [facility] Your Inpatient Doctor: Emerson Ayala MD Your Primary Care Provider: Cedric Rosenbaum DO [phone] For questions regarding this document or issues relating to this hospitalization on the Medical Service, please contact your inpatient physician through the [facility] [place] Relief [place] . Issues afterhours and on weekends will [...] any issues or concerns once you leave [facility], we apologize for any undue stress this may cause. Please do not hesitate to call your PCP office or seek further medical assistance if there are any [facility]. This questionnaire is not meant to [...] Vomiting. New pancreatic mass. Relevant PMH: Obesity, ID, ETOH use, Smoker, CHF, Hep. C. Significant [...] the discharge lounge via wheelchair accompanied by DETONATOR ASSEMBLER around 12:25. Chemo plan & supportive medication: Baseline Weight: 122.9 kg (with shoes) Most recent weight: Weight: 126.9 kg (279 lb 12.2 oz) (04/05/24 0545) Action List Fiber/residue restricted diet Follow up with Oncology outpt * Sophie Parmar MSW - 04/06/2024 10:59 AM EDT Per rounds, patient needing assistance with Ensure and food. Patient requires lactose free Ensure which [facility] did not have. Social work still able to fill food order for patient and food was dropped off at bedside. Per patient, he has applied for [employer] and is waiting a decision. Social work [...] spent >30 minutes (Day of Discharge Code 44567) involved in the final examination of the [...] encounter: 127.6 kg (281 lb 4.9 oz). 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 Reports a ~80lbs unintentional weight loss with most of the weight loss occurring in the last 3 months as po intake worsened (UBW confirmed per [facility] documentation). Addendum: Consulted for MST eval, see above assessment. Nutrition Focused Physical Exam: Performed (03/30/24) Subcutaneous Fat Loss Orbital region: None present Upper arm region (triceps/biceps): None present Thoracic and Lumbar regions (ribs, lower back, and maxillary line): Not assessed Lean Muscle Loss Congregation region (temporalis muscle): Mild Clavicle bone region [...] status was returned from the sql server developer: Page for [phone] successfully sent to [phone] having status of Available. * Farideh Dhaliwal RN - 04/05/2024 6:30 PM EDT Illness Severity [x] Stable [] Watcher [] Unstable Patient Summary Reason for admission: Nausea & Vomiting. New pancreatic mass. Relevant PMH: Obesity, ID, ETOH use, Smoker, CHF, Hep. C. Significant [...] pending Consults: Gastroenterology PT [] OT [] CONTROLS TECHNICIAN [] Last Flu vaccine: Last Covid Test [...] 03/29/2024 9:34 PM) Result Value WORKSTATION ID [id number] Impression No acute finding. Preliminary report signed [...] have questions please contact the health career information specialist that requested your imaging first. Electronically signed by: Kelsie Goodman MD, [facility] [place] ([phone]), at 03/29/2024 10:[address] Chest wo Contrast (Generic) (Exam End: 03/31/2024 5:35 PM) Result Value WORKSTATION ID [id number] Impression No evidence for intrathoracic metastasis Thank you for letting us participate in the care of this patient. If you are a health care provider and have any questions regarding this report, please contact the number below. For patients who have questions please contact the health career information specialist that requested your imaging first. Request For 2nd Read CT Abdomen & Pelvis (Exam End: 03/31/2024 5:05 PM) Result Value WORKSTATION ID [id number] Impression 1. Increased size of the primary [...] have questions please contact the health career information specialist that requested your imaging first. Electronically signed by: CHRYSTAL RODRIGUEZ MD, [facility] ([phone]), at 04/01/2024 8:51 AM XR Abdomen 1 view Contrast Challenge (Exam End: 04/01/2024 4:58 PM) Result Value WORKSTATION ID [id number] Impression No radiographic evidence of obstruction. Paucity of small bowel gas. Oral contrast scattered throughout the large bowel and rectum. Thank you for letting us participate in the care of this patient. If you are a health care provider and have any questions regarding this report, please contact the number below. For patients who have questions please contact the health career information specialist that requested your imaging first. Electronically signed by: Paul Rodriguez DO, [facility] ([phone]), at 04/01/2024 5:12 PM XR Abdomen 1 view Contrast Challenge (Exam End: 04/01/2024 11:15 PM) Result Value WORKSTATION ID [id number] Impression No small bowel obstruction. Enteric contrast column within the nondilated descending and sigmoid colon. Thank you for letting us participate in the care of this patient. If you are a health care provider and have any questions regarding this report, please contact the number below. For patients who have questions please contact the health career information specialist that requested your imaging first. Abdomen 1 view Contrast Challenge (Exam End: 04/02/2024 5:37 AM) Result Value WORKSTATION ID [id number] Impression No small bowel obstruction. Enteric contrast column within the nondilated descending and sigmoid colon. Thank you for letting us participate in the care of this patient. If you are a health care provider and have any questions regarding this report, please contact the number below. For patients who have questions please contact the health career information specialist that requested your imaging first. Abdomen 1 view Contrast Challenge (Exam End: 04/02/2024 10:54 AM) Result Value WORKSTATION ID [id number] Impression Nonobstructive bowel gas pattern. Minimal residual contrast remains in the descending and rectosigmoid colon. Thank you for letting us participate in the care of this patient. If you are a health care provider and have any questions regarding this report, please contact the number below. For patients who have questions please contact the health career information specialist that requested your imaging first. Electronically signed by: Katherine Salazar MD, [facility] ([phone]), at 04/02/2024 5:05 PM OTHER Studies: 03/11 [...] Goals of Care: Team Pager( Coverage 25/05): #[phone] PCP: Cedric Rosenbaum DO [phone] Attestation: IPI Certification I certify that I [...] 03/29/2024 9:34 PM) Result Value WORKSTATION ID [id number] Impression No acute finding. Preliminary report signed [...] have questions please contact the health career information specialist that requested your imaging first. Electronically signed by: Kelsie Goodman MD, [facility] ([phone]), at 03/29/2024 10:[address] Chest wo Contrast (Generic) (Exam End: 03/31/2024 5:35 PM) Result Value WORKSTATION ID [id number] Impression No evidence for intrathoracic metastasis Thank you for letting us participate in the care of this patient. If you are a health care provider and have any questions regarding this report, please contact the number below. For patients who have questions please contact the health career information specialist that requested your imaging first. Request For 2nd Read CT Abdomen & Pelvis (Exam End: 03/31/2024 5:05 PM) Result Value WORKSTATION ID [id number] Impression 1. Increased size of the primary [...] have questions please contact the health career information specialist that requested your imaging first. Electronically signed by: CHRYSTAL RODRIGUEZ MD, [facility] ([phone]), at 04/01/2024 8:51 AM XR Abdomen 1 view Contrast Challenge (Exam End: 04/01/2024 4:58 PM) Result Value WORKSTATION ID [id number] Impression No radiographic evidence of obstruction. Paucity of small bowel gas. Oral contrast scattered throughout the large bowel and rectum. Thank you for letting us participate in the care of this patient. If you are a health care provider and have any questions regarding this report, please contact the number below. For patients who have questions please contact the health career information specialist that requested your imaging first. Electronically signed by: Paul Rodriguez DO, [facility] ([phone]), at 04/01/2024 5:12 PM XR Abdomen 1 view Contrast Challenge (Exam End: 04/01/2024 11:15 PM) Result Value WORKSTATION ID [id number] Impression No small bowel obstruction. Enteric contrast column within the nondilated descending and sigmoid colon. Thank you for letting us participate in the care of this patient. If you are a health care provider and have any questions regarding this report, please contact the number below. For patients who have questions please contact the health career information specialist that requested your imaging first. Abdomen 1 view Contrast Challenge (Exam End: 04/02/2024 5:37 AM) Result Value WORKSTATION ID [id number] Impression No small bowel obstruction. Enteric contrast column within the nondilated descending and sigmoid colon. Thank you for letting us participate in the care of this patient. If you are a health care provider and have any questions regarding this report, please contact the number below. For patients who have questions please contact the health career information specialist that requested your imaging first. Abdomen 1 view Contrast Challenge (Exam End: 04/02/2024 10:54 AM) Result Value WORKSTATION ID [id number] Impression Nonobstructive bowel gas pattern. Minimal residual contrast remains in the descending and rectosigmoid colon. Thank you for letting us participate in the care of this patient. If you are a health care provider and have any questions regarding this report, please contact the number below. For patients who have questions please contact the health career information specialist that requested your imaging first. Electronically signed by: Katherine Salazar MD, [facility] ([phone]), at 04/02/2024 5:05 PM OTHER Studies: 03/11 [...] Goals of Care: Team Pager( Coverage 25/05): #[phone] PCP: Cedric Rosenbaum, Attestation: IPI Certification I certify that I am a D-H credentialed attending provider with admitting privileges and that the patient meets or has met medical necessity to require an inpatient IPI level of care meeting a minimumof two midnights or is on the [facility] inpatient only procedure list (status C) due [...] encounter: 126.8 kg (279 lb 8.7 oz). 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 New pancreatic mass. Relevant PMH: Obesity, ID, ETOH use, Smoker, CHF, Hep. C. Significant [...] pending Consults: Gastroenterology PT [] OT [] CONTROLS TECHNICIAN [] Last Flu vaccine: Last Covid Test [...] 03/29/2024 9:34 PM) Result Value WORKSTATION ID [id number] Impression No acute finding. Preliminary report signed [...] have questions please contact the health career information specialist that requested your imaging first. Electronically signed by: Kelsie Goodman MD, [facility] ([phone]), at 03/29/2024 10:[address] Chest wo Contrast (Generic) (Exam End: 03/31/2024 5:35 PM) Result Value WORKSTATION ID [id number] Impression No evidence for intrathoracic metastasis Thank you for letting us participate in the care of this patient. If you are a health care provider and have any questions regarding this report, please contact the number below. For patients who have questions please contact the health career information specialist that requested your imaging first. Request For 2nd Read CT Abdomen & Pelvis (Exam End: 03/31/2024 5:05 PM) Result Value WORKSTATION ID [id number] Impression 1. Increased size of the primary [...] have questions please contact the health career information specialist that requested your imaging first. Electronically signed by: CHRYSTAL RODRIGUEZ MD, [facility] ([phone]), at 04/01/2024 8:51 AM XR Abdomen 1 view Contrast Challenge (Exam End: 04/01/2024 4:58 PM) Result Value WORKSTATION ID [id number] Impression No radiographic evidence of obstruction. Paucity of small bowel gas. Oral contrast scattered throughout the large bowel and rectum. Thank you for letting us participate in the care of this patient. If you are a health care provider and have any questions regarding this report, please contact the number below. For patients who have questions please contact the health career information specialist that requested your imaging first. Electronically signed by: Paul Rodriguez DO, [facility] ([phone]), at 04/01/2024 5:12 PM XR Abdomen 1 view Contrast Challenge (Exam End: 04/01/2024 11:15 PM) Result Value WORKSTATION ID [id number] Impression No small bowel obstruction. Enteric contrast column within the nondilated descending and sigmoid colon. Thank you for letting us participate in the care of this patient. If you are a health care provider and have any questions regarding this report, please contact the number below. For patients who have questions please contact the health career information specialist that requested your imaging first. Abdomen 1 view Contrast Challenge (Exam End: 04/02/2024 5:37 AM) Result Value WORKSTATION ID [id number] Impression No small bowel obstruction. Enteric contrast column within the nondilated descending and sigmoid colon. Thank you for letting us participate in the care of this patient. If you are a health care provider and have any questions regarding this report, please contact the number below. For patients who have questions please contact the health career information specialist that requested your imaging first. Abdomen 1 view Contrast Challenge (Exam End: 04/02/2024 10:54 AM) Result Value WORKSTATION ID [id number] Impression Nonobstructive bowel gas pattern. Minimal residual contrast remains in the descending and rectosigmoid colon. Thank you for letting us participate in the care of this patient. If you are a health care provider and have any questions regarding this report, please contact the number below. For patients who have questions please contact the health career information specialist that requested your imaging first. Electronically signed by: Katherine Salazar MD, [facility] [place] ([phone]), at 04/02/2024 5:05 PM OTHER Studies: 03/11 [...] Goals of Care: Team Pager(MD Coverage 25/05): #[phone] PCP: Cedric Rosenbaum, Attestation: IPI Certification I certify that I am a D-H credentialed attending provider with admitting privileges and that the patient meets or has met medical necessity to require an inpatient IPI level of care meeting a minimumof two midnights or is on the [facility] inpatient only procedure list (status C) due [...] 03/29/2024 9:34 PM) Result Value WORKSTATION ID [id number] Impression No acute finding. Preliminary report signed [...] have questions please contact the health career information specialist that requested your imaging first. Electronically signed by: Kelsie Goodman MD, [facility] ([phone]), at 03/29/2024 10:[address] Chest wo Contrast (Generic) (Exam End: 03/31/2024 5:35 PM) Result Value WORKSTATION ID [id number] Impression No evidence for intrathoracic metastasis Thank you for letting us participate in the care of this patient. If you are a health care provider and have any questions regarding this report, please contact the number below. For patients who have questions please contact the health career information specialist that requested your imaging first. Request For 2nd Read CT Abdomen & Pelvis (Exam End: 03/31/2024 5:05 PM) Result Value WORKSTATION ID [id number] Impression 1. Increased size of the primary [...] have questions please contact the health career information specialist that requested your imaging first. Electronically signed by: CHRYSTAL RODRIGUEZ MD, [facility] ([phone]), at 04/01/2024 8:51 AM XR Abdomen 1 view Contrast Challenge (Exam End: 04/01/2024 4:58 PM) Result Value WORKSTATION ID [id number] Impression No radiographic evidence of obstruction. Paucity of small bowel gas. Oral contrast scattered throughout the large bowel and rectum. Thank you for letting us participate in the care of this patient. If you are a health care provider and have any questions regarding this report, please contact the number below. For patients who have questions please contact the health career information specialist that requested your imaging first. Electronically signed by: Paul Rodriguez DO, [facility] ([phone]), at 04/01/2024 5:12 PM XR Abdomen 1 view Contrast Challenge (Exam End: 04/01/2024 11:15 PM) Result Value WORKSTATION ID [id number] Impression No small bowel obstruction. Enteric contrast column within the nondilated descending and sigmoid colon. Thank you for letting us participate in the care of this patient. If you are a health care provider and have any questions regarding this report, please contact the number below. For patients who have questions please contact the health career information specialist that requested your imaging first. Abdomen 1 view Contrast Challenge (Exam End: 04/02/2024 5:37 AM) Result Value WORKSTATION ID [id number] Impression No small bowel obstruction. Enteric contrast column within the nondilated descending and sigmoid colon. Thank you for letting us participate in the care of this patient. If you are a health care provider and have any questions regarding this report, please contact the number below. For patients who have questions please contact the health career information specialist that requested your imaging first. R Studies: [...] Goals of Care: Team Pager(MD Coverage 25/05): #[phone] PCP: Cedric Rosenbaum, Attestation: IPI Certification I certify that I am a D-H credentialed attending provider with admitting privileges and that the patient meets or has met medical necessity to require an inpatient IPI level of care meeting a minimumof two midnights or is on the [facility] inpatient only procedure list (status C) due to: Inability to tolerate POs, new diagnosis of pancreatic adenocarcinoma Kay Robbins MD 04/02/2024 * Panchito Ahuja RN - 04/02/2024 4:22 AM EDT Illness Severity [x] Stable [] Watcher [] Unstable Patient Summary Reason for admission: Nausea & Vomiting. New pancreatic mass. Relevant PMH: Obesity, ID, ETOH use, Smoker, CHF, Hep. C. Significant [...] after doing so. [facility] follow up study done. 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 Preliminary report signed [...] have questions please contact the health career information specialist that requested your imaging first. Electronically signed by: Kelsie Goodman MD, [facility] ([phone]), at 03/29/2024 10:[address] Chest wo Contrast (Generic) (Exam End: 03/31/2024 5:35 PM) Result Value WORKSTATION ID [id number] Impression No evidence for intrathoracic metastasis Thank you for letting us participate in the care of this patient. If you are a health care provider and have any questions regarding this report, please contact the number below. For patients who have questions please contact the health career information specialist that requested your imaging first. Request For 2nd Read CT Abdomen & Pelvis (Exam End: 03/31/2024 5:05 PM) Result Value WORKSTATION ID [id number] Impression 1. Increased size of the primary [...] have questions please contact the health career information specialist that requested your imaging first. Electronically signed by: CHRYSTAL RODRIGUEZ MD, [facility] ([phone]), at 04/01/2024 8:51 AM OTHER Studies: 03/11 [...] Goals of Care: Team Pager( Coverage 25/05): #[phone] PCP: Cedric Rosenbaum DO [phone] Attestation: IPI Certification I certify that I am a D-H credentialed attending provider with admitting privileges and that the patient meets or has met medical necessity to require an inpatient IPI level of care meeting a minimumof two midnights or is on the [facility] inpatient only procedure list (status C) due [...] M.D. Fellow in Gastroenterology and Hepatology Pager #[phone] 04/01/2024 Associated attestation - Anna Alvarado MD - 04/01/2024 3:20 PM EDT ATTENDING ATTESTATION I have seen the patient in person and reviewed the GI fellow's history and I agree with the detailsas written. The assessment and plan were formulated in discussion with me and I agree with them as documented. Anna Alvarado MD Gastroenterology and Hepatology 04/01/2024 3:20 PM Pager # [phone] * Emerson Ayala MD - 03/31/2024 1:14 [...] infusions: sodium chloride 0.9% 100 mL/hr (03/31/24 7320) PRN: sodium chloride 0.9 % (flush), lidocaine, [...] 03/29/2024 9:34 PM) Result Value WORKSTATION ID [id number] Impression No acute finding. Preliminary report signed [...] have questions please contact the health career information specialist that requested your imaging first. Electronically signed by: Kelsie Goodman MD, [facility] ([phone]), at 03/29/2024 10:36 PM OTHER Studies: 03/11 [...] Coverage 25/05): #[phone] PCP: Cedric Rosenbaum DO [phone] Attestation: IPI Certification I certify that I am a D-H credentialed attending provider with admitting privileges and that the patient meets or has met medical necessity to require an inpatient IPI level of care meeting a minimumof two midnights or is on the [facility] inpatient only procedure list (status C) due [...] 03/29/2024 9:34 PM) Result Value WORKSTATION ID [id number] Impression No acute finding. Preliminary report signed [...] have questions please contact the health career information specialist that requested your imaging first. Electronically signed by: Kelsie Goodman MD, [facility] [place] ([phone]), at 03/29/2024 10:36 PM OTHER Studies: 03/11 [...] w/ biopsy. - regular diet, NPO at [place] for tomorrow. #Alcohol use disorder #Prior tobacco [...] Vomiting. New pancreatic mass. Relevant PMH: Obesity, ID, ETOH use, Smoker, CHF, Hep. C. Significant [...] in the last 7068 hours. Invalid input(s): [id number] Heme: No results for input(s): LDH, HAPTOGLOBIN, [...] Code Status: full code. Darren Dejesus MD [facility] Medicine Pager [phone] Associated attestation - Magno Kim MD - [...] output. Feels abd is bloated PMH obesity, ID, ETOH use, smoking,CHF, Hep C by chart [...] mass Admit [facility] Bernarda Martinez MD 03/29/24 6590 * Ramonita Abbasi DO - 03/29/2024 5:04 PM EDT ED Resident Note HPI: Dylan Michele is a 53 y.o. male with a past medical history of alcoholism, smoking, morbid obesity, ID, congestive heart failure, gout who presents to the Emergency Department [facility] after being diagnosed with [...] Bilirubin: 0.9 174 Lipase: 14 2041 Paged [facility] medicine [phone] Discussed admission with hospital [...] have requested the images be pushed to [facility] for the hospital team here. Patient admitted [...] Received report from provider, Dr. Pierce, from [facility], patient presented with weight loss of 82lbs [...] Received report from provider, Dr. Pierce, from [facility], patient presented with weight loss of 82lbs [...] / BiPAP *has own BIPAP machine from [employer]: [employer] Referrals & Follow-up Care: Transportation: family or [...] All are in agreement with plan. JUANITA Meidna, RN, CM * Consult Note - Rita Ward MD - 04/06/2024 7:28 AM EDT [facility] Department of Surgery, Hepato Pancreato Biliary Surgery [...] in November which promoted him to visit [facility] in December this year. During that [...] 5X8cm sized pancreatic mass and referred to [facility]. He was admitted to Medicine service since [...] dysuria, (-) urgency, (-) frequency, (-) hematuria Counter Former: (-)menorrhagia, (-)menopausal Heme/Lymph: (-) easy bruising, (-) [...] PRG FLUOR[facility]A 03/31/2024 FLUOROSCOPY (WRVU 0.3) performed by Eulogio Marcos MD at [facility] ENDOSCOPY PRO EDG FLEXIBLE TRANSORAL ENDOSCOPIC STENT PLACEMENT W/WIRE & DILATION N/A 03/31/2024 EGD, TRANSORAL; WITH PLACEMENT OF ENDOSCOPIC STENT (WRVU 3.92) performed by Eulogio Marcos MD at [facility] ENDOSCOPY PRO [facility] ENDOSCOPY W/US FN BX N/A 03/31/2024 EGD, W US GUIDED FINE NEEDLE ASPIRATION/BIOPSY (WRVU 4.16) performed by Eulogio Marcos MD at [facility] ENDOSCOPY Medications: No current facility-administered medications on [...] Rita Ward MD. Signed: Audrey Neumann MD [facility] Hepato Pancreato Biliary Surgery Service Team Pager #[phone] 04/06/24 7:29 AM Thank you for this consult. If you have any questions regarding this consult, please page #[phone]. [] Consult service to continue to follow [X] Consult service to sign off HP[facility] surgery attending addendum I was finally able to see Efrain this morning before discharge. His sister is on her way down to [facility]. She is an RN. He seems to [...] and this can be administered up in [place] per Dr. Kelly and then be considered for radiation therapy either chemoradiation which would be in [place] or SBRT radiation which would have to be done in [place]. I told him that surgery is unlikely to ever going to be helpful given the extent of the tumor involvement around the blood vessels. I will plan to see him back though next week when we are scheduled to see him in the pancreas tumor clinic next Thursday-my police department secretary is actively working on setting up those multidisciplinary appointments with myself, medical oncology, nutrition and genetics. I sent a prescription for pancreas enzymes-Creon 24 with instructions to take 1 capsule with meals-this was sent up to his [facility] in [place]. Esau Ward MD 04/06/2024 11:02 AM * [...] Neumann MD - 04/04/2024 1:32 PM EDT [facility] Department of Surgery, Hepato Pancreato Biliary Surgery [...] in November which promoted him to visit [facility] in December this year. During that [...] 5X8cm sized pancreatic mass and referred to [facility]. He was admitted to Medicine service since [...] dysuria, (-) urgency, (-) frequency, (-) hematuria Counter Former: (-)menorrhagia, (-)menopausal Heme/Lymph: (-) easy bruising, (-) [...] [facility] 03/31/2024 FLUOROSCOPY (WRVU 0.3) performed by Eulogio Marcos MD at [facility] ENDOSCOPY PRO EDG FLEXIBLE TRANSORAL ENDOSCOPIC STENT PLACEMENT W/WIRE & DILATION N/A 03/31/2024 EGD, TRANSORAL; WITH PLACEMENT OF ENDOSCOPIC STENT (WRVU 3.92) performed by Eulogio Marcos MD at [facility] ENDOSCOPY PRO [facility] ENDOSCOPY W/US FN BX N/A 03/31/2024 EGD, W US GUIDED FINE NEEDLE ASPIRATION/BIOPSY (WRVU 4.16) performed by Eulogio Marcos MD at [facility] ENDOSCOPY Medications: No current facility-administered medications on [...] Rita Ward MD. Signed: Audrey Neumann MD [facility] Hepato Pancreato Biliary Surgery Service Team Pager #[phone] 04/04/24 1:32 PM Thank you for this consult. If you have any questions regarding this consult, please page #[phone]. [X] Consult service to continue to follow [...] / BiPAP *has own BIPAP machine from [employer]: [employer] Nutrition Type: Tube Feeds Access: Location: Referred to [facility] Coordination, Referred to Home Health Agency Details: home Home Health Services: Registered Nurse, Medication checks Agency Referrals: I have met with the patient to: discuss discharge planning needs. provide the [facility], Office of Care Management letter from the Respiratory Therapy Assistant pertaining to rehab referrals. provide a letter describing our affiliations within the [facility] and educate about their right to choose where referrals are sent. provide a list of Home Health Agencies / Durable Medical Equipment vendors which serve their preferred geographic area. provided patient with [facility] Star Quality Rating handout. They [facility] [address] [place] [address] [place] [address] [facility] or Note routed to a Social Group Worker who will communicate referrals to facilities and [...] encounter: 122.9 kg (270 lb 15.1 oz). 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 Reports a ~80lbs unintentional weight loss with most of the weight loss occurring in the last 3 months as po intake worsened (UBW confirmed per [place] documentation). Addendum: Consulted for MST eval, see above assessment. Nutrition Focused Physical Exam: Performed (03/30/24) Subcutaneous Fat Loss Orbital region: None present Upper arm region (triceps/biceps): None present Thoracic and Lumbar regions (ribs, lower back, and maxillary line): Not assessed Lean Muscle Loss Congregation region (temporalis muscle): Mild Clavicle bone region [...] able to verbalize needs. 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 Lives with his room mate and [...] ) would be surrogate decision maker per [place] surrogate decision making law. (Only good for 180 days) Any patient receiving care in [place] must abide by [place] law. The hierarchy for surrogate decision making [...] (i) The agent with financial power of compliance attorney or a conservator appointed in accordance [...] confirmed as: [address] [place] [address] Social & Family Supports: All names listed below confirmed with patient as current and correct Extended Emergency Contact Information Primary Emergency Contact: Katherine Vaughan Mobile Relation: Sibling Secondary Emergency Contact: Jam Downing Address: [address] [place] [address] [place] Relation: Friend Current [...] N/A ; Prescription Coverage: Yes Preferred Pharmacy: [id number] - [place], [place] - [address] [facility] [address] Status: Patient is a : No Primary [...] malnutrition as outlined below Addendum: Consulted for [facility] kenzie, see below assessment. Daily [...] encounter: 122.9 kg (270 lb 15.1 oz). 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 Reports a ~80lbs unintentional weight loss with [...] maxillary line): Not assessed Lean Muscle Loss Congregation region (temporalis muscle): Mild Clavicle bone region [...] you, Alexia Swenson. Bashir, MS, RD, LD, [facility] Clinical Nutrition * Consult Note - Yaima [...] and repeat CT A/P on 03/[address] [facility]. Colonoscopy demonstrated polyps, EGD was reportedlynegative (see path below), and CT A/P demonstrated a 5 x 8 cm mass on the inferior head of the pancreas. CA 19 9 was also reportedly elevated. In the ED, patient was afebrile and hemodynamically stable. Labs notable for a WBC 6.4, hemoglobin 14.5, platelets 286, creatinine 0.59, normal LFTs, normal lipase. EGD + [facility] (care everywhere): A. DUODENUM, BIOPSY: - [...] - Trend LFTs daily - obtain prior [facility] CT a/p from November 2023 The plan as outlined above was discussed with Dr. Alvarado. Recommendations were discussed with primaryteam. Yaima Vick M.D. Fellow in Gastroenterology and Hepatology Pager #[phone] 03/30/2024 Associated attestation - Anna Alvarado MD [...] and Hepatology 03/30/2024 11:13 AM Pager # [phone] * ED Triage - Allison Virgen RN [...] AM EDT Office Visit Hematology/Oncology at [address] [phone] Ministerio Kelly MD [facility] [address] [place] [address] Katherine Guadarrama, [address] HEMATOLOGY AND [place], [place] [phone] 05/20/2024 9:00 AM EDT Infusion Hematology Oncology at [address] [phone] 05/30/2024 1:00 PM EDT [place] [phone] Dena Graves 05/30/2024 4:00 PM EDT Office [place] [phone] Derek Evans MD [facility] DR VASCULAR [place] [address] 06/03/2024 8:30 AM EDT Office Visit Hematology/Oncology at [address] [phone] Ministerio Kelly MD [facility] [place] [address] [address] HEMATOLOGY AND [place], [place] [phone] 06/03/2024 9:00 AM EDT Infusion Hematology Oncology at [address] [phone] Scheduled Orders Name Type Priority [...] XR ERCP Routine 03/31/2024 12:37 PM EDT NON-GENERAL LEDGER BOOKKEEPER FINAL REPORT Routine 03/31/2024 11:12 AM EDT CYTOPATHOLOGY NON-GYNECOLOGICAL Routine 03/31/2024 11:12 AM EDT Edg Flexible Transoral Endoscopic Stent Placement W/Wire & Dilation(10729) 03/31/2024 10:33 AM EDT pancreas head mass Fluoroscopy Exam Up To 1 Hr Phy Or Oth Hlth Care Prov (37011) 03/31/2024 10:33 AM EDT pancreas head mass Upgi Endoscopy W/Us Fn Bx (64319) 03/31/2024 10:33 AM EDT pancreas head mass [...] Tube HOLD (04/06/2024 3:59 AM EDT) Pathologist [facility] Lavender Hold Sample in lab. [facility] Blood Venous Draw / Unknown 04/06/2024 3:59 AM EDT 04/06/2024 4:44 AM EDT Marck Guevara MD HEMATOLOGY ORDERABLE S [facility] [place] [address] * (ABNORMAL) Basic Metabolic Panel (non-fasting) (04/06/2024 3:59 AM EDT) Pathologist [facility] Glucose Lvl 100 65 - 199 mg/dL [facility] Comment:Diabetes: >=200 mg/d L plus symptoms BUN 5(L) 10 - 20 mg/dL [facility] Creatinine 0.59(L) 0.80 - 1.50 mg/dL [facility] Sodium 140 135 - 145 mmol/L [facility] Potassium 3.4(L) 3.5 - 5.0 mmol/L [facility] Comment: Please note: ??Patients with WBC >100,000 may have falsely elevated Potassium levels. ??For accurate Potassium quantification in these patients send serum separator tube (gold top) for subsequent determinations. ??Contact the Clinical Chemistry Laboratory if there are any questions. Chloride 100 98 - 107 mmol/L [facility] CO2 31 22 - 31 mmol/L [facility] Anion Gap 9 5 - 15 mmol/L [facility] Calcium 8.3(L) 8.5 - 10.5 mg/dL [facility] Estimated GFR 117 >=60 mL/min/1. 73 m?? [facility] [...] Guevara MD CHEMISTRY ORDERABLES Performing Organization Address City/[facility]/ZIP Co de Phone Number [facility] [place] [address] * Lavender Tube HOLD (04/05/2024 4:56 AM EDT) Lavender Hold Sample in lab. [facility] Blood Venous Draw / Unknown 04/05/2024 4:56 AM EDT 04/05/2024 5:26 AM EDT Marck Guevara MD HEMATOLOGY ORDERABLE S Performing Organization Address City/[facility]/ZIP Co de Phone Number [facility] [place] [address] * (ABNORMAL) Basic Metabolic Panel (non-fasting) (04/05/2024 4:56 AM EDT) Glucose Lvl 93 65 - 199 mg/dL [facility] Comment:Diabetes: >=200 mg/d L plus symptoms BUN 4(L) 10 - 20 mg/dL [facility] Creatinine 0.53(L) 0.80 - 1.50 mg/dL [facility] Sodium 142 135 - 145 mmol/L [facility] Potassium 3.2(L) 3.5 - 5.0 mmol/L [facility] Comment: Please note: ??Patients with WBC >100,000 may have falsely elevated Potassium levels. ??For accurate Potassium quantification in these patients send serum separator tube (gold top) for subsequent determinations. ??Contact the Clinical Chemistry Laboratory if there are any questions. Chloride 102 98 - 107 mmol/L [facility] CO2 30 22 - 31 mmol/L [facility] Anion Gap 10 5 - 15 mmol/L [facility] Calcium 8.3(L) 8.5 - 10.5 mg/dL [facility] Estimated GFR 121 [...] In Lab Marck Guevara MD CHEMISTRY ORDERABLES [facility] [place] [address] * Lavender Tube HOLD (04/04/2024 5:01 AM EDT) Lavender Hold Sample in lab. [facility] Blood Venous Draw / Unknown 04/04/2024 5:01 AM EDT 04/04/2024 5:24 AM EDT Marck Guevara MD HEMATOLOGY ORDERABLE S [facility] [place] [address] * (ABNORMAL) Basic Metabolic Panel (non-fasting) (04/04/2024 5:01 AM EDT) Glucose Lvl 121 65 - 199 mg/dL [facility] Comment:Diabetes: >=200 mg/d L plus symptoms BUN 6(L) 10 - 20 mg/dL [facility] Creatinine 0.55(L) 0.80 - 1.50 mg/dL [facility] Sodium 140 135 - 145 mmol/L [facility] Potassium 3.1(L) 3.5 - 5.0 mmol/L [facility] Comment: Called by: pranav, Read back by: panchito ahuja, Date/Time:04/04/24 06:07. Please note: ??Patients with WBC >100,000 may have falsely elevated Potassium levels. ??For accurate Potassium quantification in these patients send serum separator tube (gold top) for subsequent determinations. ??Contact the Clinical Chemistry Laboratory if there are any questions. Chloride 100 98 - 107 mmol/L [facility] CO2 31 22 - 31 mmol/L [facility] Anion Gap 9 5 - 15 mmol/L [facility] Calcium 8.5 8.5 - 10.5 mg/dL [facility] Estimated GFR 120 >=60 mL/min/1. 73 m?? [facility] [...] In Lab Marck Guevara MD CHEMISTRY ORDERABLES [facility] [place] [address] * Differential, Automated (04/03/2024 8:15 AM EDT) Neutrophils % 70.9 % [facility] Neutr Abs (ANC) 5.91 1.70 - 6.10 x10(3)/[facility] Lymphocytes % 20.1 % [facility] Lymphocytes Abs 1.7 0.9 - 3.2 x10(3)/[facility] Monocytes % 8.0 % [facility] Monocyte Abs 0.7 0.3 - 0.9 x10(3)/[facility] Eosinophils % 0.6 % [facility] Eosinophils Abs 0.0 0.0 - 0.4 x10(3)/[facility] Basophils % 0.2 % [facility] Basophils Abs 0.0 0.0 - 0.1 x10(3)/[facility] Immature Gran % 0.20 % [facility] Comment: Immature granulocytes(IG's)percentage and absolute count will include metamyelocytes, myelocytes, and promyelocytes. Blood smears from CBCs yielding IG's will be scanned manually for concordance. If this scan disagrees with the automated IG or if promyelocytes are noted, a manual differential will be performed. [place] Gran Abs 0.02 0.00 - 0.04 x10(3)/[facility] Blood 04/03/2024 8:15 AM EDT 04/03/2024 8:35 AM EDT Narrative Resulting Agency Comment Spec In Lab Marck Guevara MD HEMATOLOGY ORDERABLE S [facility] [place] [address] * (ABNORMAL) Hemogram (04/03/2024 8:15 AM EDT) Pathologist [facility] WBC 8.4 4.0 - 9.5 x10(3)/[facility] LABORATORY RBC 4.74 4.58 - 5.54 x10(6)/[facility] LABORATORY Hemoglobin 13.6(L) 13.7 - 16.5 g/dL [facility] Hematocrit 42.8 40.5 - 48.5 % [facility] MCV 90.3 82.9 - 93.1 [facility] LABORATORY MCH 28.7 27.5 - 32.1 pg [facility] MCHC 31.8(L) 32.0 - 35.7 g/dL [facility] Platelets 245 145 - 357 x10(3)/[facility] LABORATORY RDWSD 43.8 36.0 - 45.0 [facility] LABORATORY RDWCV 13.2 11.4 - 13.8 % [facility] MPV 9.0 7.6 - 12.9 [facility] LABORATORY nRBC % Auto 0.0 % [facility] nRBC Abs Auto 0.000 0.000 - 0.000 x10(3)/[facility] LABORATORY Blood 04/03/2024 8:15 AM EDT 04/03/2024 8:35 AM EDT Narrative Resulting Agency Comment Spec In Lab Marck Guevara MD HEMATOLOGY ORDERABLE S [facility] [place] [address] * Magnesium (04/03/2024 8:15 AM EDT) Pathologist [facility] Magnesium 0.69 0.69 - 1.07 mmol/L [facility] Blood 04/03/2024 8:15 AM EDT 04/03/2024 8:35 AM EDT Narrative Resulting Agency Comment Spec In Lab Marck Guevara MD CHEMISTRY ORDERABLES Performing Organization Address City/[facility] Co de Phone Number [facility] [place] [address] * Phosphorus (04/03/2024 8:15 AM EDT) Phosphorus 2.7 2.5 - 4.5 mg/dL [facility] Blood 04/03/2024 8:15 AM EDT 04/03/2024 8:35 AM EDT Narrative Resulting Agency Comment Spec In Lab Marck Guevara MD CHEMISTRY ORDERABLES Performing Organization Address [facility] Co de Phone Number [facility] [place] [address] * (ABNORMAL) Basic Metabolic Panel (non-fasting) (04/03/2024 8:15 AM EDT) Glucose Lvl 95 65 - 199 mg/dL [facility] Comment:Diabetes: >=200 mg/d L plus symptoms BUN 6(L) 10 - 20 mg/dL [facility] Creatinine 0.55(L) 0.80 - 1.50 mg/dL [facility] Sodium 143 135 - 145 mmol/L [facility] Potassium 3.4(L) 3.5 - 5.0 mmol/L [facility] Comment: Please note: ??Patients with WBC >100,000 may have falsely elevated Potassium levels. ??For accurate Potassium quantification in these patients send serum separator tube (gold top) for subsequent determinations. ??Contact the Clinical Chemistry Laboratory if there are any questions. Chloride 101 98 - 107 mmol/L [facility] CO2 33(H) 22 - 31 mmol/L [facility] Anion Gap 9 5 - 15 mmol/L [facility] Calcium 8.3(L) 8.5 - 10.5 mg/dL [facility] Estimated GFR 120 >=60 mL/min/1. 73 m?? [facility] [...] In Lab Marck Guevara MD CHEMISTRY ORDERABLES [facility] [place] [address] * (ABNORMAL) Magnesium (04/02/2024 4:05 PM EDT) Magnesium 0.63(L) 0.69 - 1.07 mmol/L [facility] Blood Venous Draw / Unknown 04/02/2024 4:05 PM EDT 04/02/2024 4:16 PM EDT Narrative Resulting Agency Comment Spec In Lab Kay Robbins MD CHEMISTRY ORDERABLES [facility] [place] [address] * (ABNORMAL) Basic Metabolic Panel (non-fasting) (04/02/2024 4:05 PM EDT) Glucose Lvl 83 65 - 199 mg/dL [facility] Comment:Diabetes: >=200 mg/d L plus symptoms BUN 6(L) 10 - 20 mg/dL [facility] Creatinine 0.47(L) 0.80 - 1.50 mg/dL [facility] Sodium 141 135 - 145 mmol/L [facility] Potassium 3.1(L) 3.5 - 5.0 mmol/L [facility] Comment: Please note: ??Patients with WBC >100,000 may have falsely elevated Potassium levels. ??For accurate Potassium quantification in these patients send serum separator tube (gold top) for subsequent determinations. ??Contact the Clinical Chemistry Laboratory if there are any questions. Chloride 101 98 - 107 mmol/L [facility] CO2 29 22 - 31 mmol/L [facility] Anion Gap 11 5 - 15 mmol/L [facility] Calcium 8.2(L) 8.5 - 10.5 mg/dL [facility] Estimated GFR 126 >=60 mL/min/1. 73 m?? [facility] [...] In Lab Kay Robbins MD CHEMISTRY ORDERABLES [facility] [place] [place] [address] * XR Abdomen 1 view Contrast Challenge (04/02/2024 10:54 AM EDT) [employer] WORKSTATION ID [id number] RAD Anatomical Region Laterality Modality Abdomen N/A [...] have questions please contact the health career information specialist that requested your imaging first. ? Electronically signed by: Katherine Salazar MD, [facility] ([phone]), at 04/02/2024 5:05 PM Narrative 04/02/2024 5:05 PM EDT EXAMINATION: XR ABDOMEN 1 VIEW FOR CONTRAST CHALLENGE CLINICAL HISTORY: follow up to contrast challenge TECHNIQUE: AP supine radiographs of the abdomen labeled 24 HR POST, 4 images, 04/02/2024 electronically time stamped 5355-7659 hours COMPARISON: AP supine radiographs of the abdomen 04/02/2024 electronically time stamped 7052-4915 hours. FINDINGS: Minimal residual contrast seen in [...] HR POST, 4 images,04/02/2024 electronically time stamped 6856-2861 hours COMPARISON: AP supine radiographs of the abdomen 04/02/2024 electronically timestamped [id number] hours. FINDINGS: Minimal residual contrast seen in [...] who have questions please contactthe health career information specialist that requested your imaging first. Electronically signed by: Katherine Salazar MD, [facility]([phone]), at 04/02/2024 5:05 PM Emerson Ayala MD IMG DX ORDERABLES * XR Abdomen 1 view Contrast Challenge (04/02/2024 5:37 AM EDT) WORKSTATION ID [id number] RAD Anatomical Region Laterality Modality Abdomen N/A [...] have questions please contact the health career information specialist that requested your imaging first. ? Narrative 04/02/2024 8:44 AM EDT EXAMINATION: XR [...] who have questions please contactthe health career information specialist that requested your imaging first. Emerson Ayala MD IMG DX ORDERABLES * (ABNORMAL) Differential, Automated (04/02/2024 3:28 AM EDT) Neutrophils % 73.2 % [facility] Neutr Abs (ANC) 6.20(H) 1.70 - 6.10 x10(3)/mc L [facility] Lymphocytes % 18.9 % [facility] Lymphocytes Abs 1.6 0.9 - 3.2 x10(3)/mc L [facility] Monocytes % 6.8 % [facility] Monocyte Abs 0.6 0.3 - 0.9 x10(3)/[facility] LABORATORY Eosinophils % 0.4 % [facility] Eosinophils Abs 0.0 0.0 - 0.4 x10(3)/[facility] LABORATORY Basophils % 0.2 % [facility] Basophils Abs 0.0 0.0 - 0.1 x10(3)/[facility] LABORATORY Immature Gran % 0.50 % [facility] Comment: Immature granulocytes(IG's)percentage and absolute count will include metamyelocytes, myelocytes, and promyelocytes. Blood smears from CBCs yielding IG's will be scanned manually for concordance. If this scan disagrees with the automated IG or if promyelocytes are noted, a manual differential will be performed. [place] Gran Abs 0.04 0.00 - 0.04 x10(3)/[facility] LABORATORY Blood 04/02/2024 3:28 AM EDT 04/02/2024 4:18 AM EDT Narrative Resulting Agency Comment Spec In Lab Emerson Ayala MD HEMATOLOGY ORDERAB LES [facility] [place] [address] * (ABNORMAL) Hemogram (04/02/2024 3:28 AM EDT) WBC 8.5 4.0 - 9.5 x10(3)/[facility] LABORATORY RBC 4.59 4.58 - 5.54 x10(6)/[facility]ORATORY Hemoglobin 13.6(L) 13.7 - 16.5 g/dL [facility] Hematocrit 41.1 40.5 - 48.5 % [facility] MCV 89.5 82.9 - 93.1 fL [facility] MCH 29.6 27.5 - 32.1 pg [facility] MCHC 33.1 32.0 - 35.7 g/dL [facility] Platelets 244 145 - 357 x10(3)/[facility]ORATORY RDWSD 43.8 36.0 - 45.0 fL [facility] RDWCV 13.3 11.4 - 13.8 % [facility] MPV 9.3 7.6 - 12.9 fL [facility] nRBC % Auto 0.0 % [facility] nRBC Abs Auto 0.000 0.000 - 0.000 x10(3)/[facility] Blood 04/02/2024 3:28 AM EDT 04/02/2024 4:18 AM EDT Narrative Resulting Agency Comment Spec In Lab Emerson Ayala MD HEMATOLOGY ORDERAB LES [facility] [place] [address] * (ABNORMAL) Comprehensive metabolic panel (non-fasting) (04/02/2024 3:28 AM EDT) Glucose Lvl 128 65 - 199 mg/dL [facility] Comment:Diabetes: >=200 mg/d L plus symptoms BUN 7(L) 10 - 20 mg/dL [facility] Creatinine 0.44(L) 0.80 - 1.50 mg/dL [facility] Sodium 142 135 - 145 mmol/L [facility] Potassium 2.7(Criti citlali) 3.5 - 5.0 mmol/L [facility] Comment: Called by: , Read back by: PANCHITO AHUJA, Date/Time:04/02/24 04:58. Please note: ??Patients with WBC >100,000 may have falsely elevated Potassium levels. ??For accurate Potassium quantification in these patients send serum separator tube (gold top) for subsequent determinations. ??Contact the Clinical Chemistry Laboratory if there are any questions. Chloride 102 98 - 107 mmol/L [facility] CO2 30 22 - 31 mmol/L [facility] Anion Gap 10 5 - 15 mmol/L [facility] Calcium 8.0(L) 8.5 - 10.5 mg/dL [facility] Total Protein 5.1(L) 6.1 - 8.0 g/dL [facility] Albumin 2.5(L) 3.2 - 5.2 g/dL [facility] AST 14 0 - 39 unit/L [facility] ALT 13 0 - 55 unit/L [facility] Alk Phos 94 40 - 130 unit/L [facility] Total Bilirubin 0.6 0.2 - 1.3 mg/dL [facility] Estimated GFR 128 >=60 mL/min/1. 73 m?? [facility] [...] Lab Emerson Ayala MD CHEMISTRY ORDERABL ES [facility] [place] [place] [address] * XR Abdomen 1 view Contrast Challenge (04/01/2024 11:15 PM EDT) WORKSTATION ID [id number] RAD Anatomical Region Laterality Modality Abdomen N/A [...] have questions please contact the health career information specialist that requested your imaging first. ? Narrative 04/02/2024 8:44 AM EDT EXAMINATION: XR [...] who have questions please contactthe health career information specialist that requested your imaging first. Emerson Ayala MD IMG DX ORDERABLES * XR Abdomen 1 view Contrast Challenge (04/01/2024 4:58 PM EDT) WORKSTATION ID [id number] RAD Anatomical Region Laterality Modality Abdomen N/A [...] have questions please contact the health career information specialist that requested your imaging first. ? Electronically signed by: Paul Rodriguez DO, [facility] ([phone]), at 04/01/2024 5:12 PM Narrative 04/01/2024 5:12 [...] who have questions please contactthe health career information specialist that requested your imaging first. Emerson Ayala MD IMG DX ORDERABLES * Phosphorus (04/01/2024 4:07 PM EDT) Phosphorus 2.9 2.5 - 4.5 mg/dL [facility] Blood 04/01/2024 4:07 PM EDT 04/01/2024 4:13 PM EDT Narrative Resulting Agency Comment Spec In Lab Emerson Ayala MD CHEMISTRY ORDERABL ES Performing Organization Address [facility]/ZIP Co de Phone Number [facility] [place] [address] * Magnesium (04/01/2024 4:07 PM EDT) Pathologist [facility] Magnesium 0.73 0.69 - 1.07 mmol/L [facility] Blood 04/01/2024 4:07 PM EDT 04/01/2024 4:13 PM EDT Narrative Resulting Agency Comment Spec In Lab Emerson Ayala MD CHEMISTRY ORDERABL ES Performing Organization Address [facility]/ZIP Co de Phone Number [facility] [place] [address] * (ABNORMAL) Basic Metabolic Panel (non-fasting) (04/01/2024 4:07 PM EDT) Pathologist [facility] Glucose Lvl 76 65 - 199 mg/dL [facility] Comment:Diabetes: >=200 mg/d L plus symptoms BUN 7(L) 10 - 20 mg/dL [facility] Creatinine 0.56(L) 0.80 - 1.50 mg/dL [facility] Sodium 146(H) 135 - 145 mmol/L [facility] Potassium 3.6 3.5 - 5.0 mmol/L [facility] Comment: Please note: ??Patients with WBC >100,000 may have falsely elevated Potassium levels. ??For accurate Potassium quantification in these patients send serum separator tube (gold top) for subsequent determinations. ??Contact the Clinical Chemistry Laboratory if there are any questions. Chloride 101 98 - 107 mmol/L [facility] CO2 31 22 - 31 mmol/L [facility] Anion Gap 14 5 - 15 mmol/L [facility] Calcium 8.5 8.5 - 10.5 mg/dL [facility] Estimated GFR 119 >=60 mL/min/1. 73 m?? [facility] [...] Lab Emerson Ayala MD CHEMISTRY ORDERABL ES [facility] [place] [place] [address] * Differential, Automated (04/01/2024 4:51 AM EDT) Neutrophils % 72.9 % [facility] Neutr Abs (ANC) 5.77 1.70 - 6.10 x10(3)/[facility]ORATORY Lymphocytes % 19.2 % [facility] Lymphocytes Abs 1.5 0.9 - 3.2 x10(3)/[facility] Monocytes % 6.9 % [facility] Monocyte Abs 0.6 0.3 - 0.9 x10(3)/[facility] Eosinophils % 0.5 % [facility] Eosinophils Abs 0.0 0.0 - 0.4 x10(3)/[facility] Basophils % 0.1 % [facility] Basophils Abs 0.0 0.0 - 0.1 x10(3)/[facility] Immature Gran % 0.40 % [facility] Comment: Immature granulocytes(IG's)percentage and absolute count will include metamyelocytes, myelocytes, and promyelocytes. Blood smears from CBCs yielding IG's will be scanned manually for concordance. If this scan disagrees with the automated IG or if promyelocytes are noted, a manual differential will be performed. [place] Gran Abs 0.03 0.00 - 0.04 x10(3)/[facility] Blood 04/01/2024 4:51 AM EDT 04/01/2024 5:44 AM EDT Narrative Resulting Agency Comment Spec In Lab Emerson Ayala MD HEMATOLOGY ORDERAB LES Performing Organization Address City/State/[facility] Co de Phone Number [facility] [place] [address] * Hemogram (04/01/2024 4:51 AM EDT) WBC 7.9 4.0 - 9.5 x10(3)/[facility] RBC 4.71 4.58 - 5.54 x10(6)/[facility] Hemoglobin 13.8 13.7 - 16.5 g/dL [facility] Hematocrit 42.7 40.5 - 48.5 % [facility] MCV 90.7 82.9 - 93.1 fL [facility] MCH 29.3 27.5 - 32.1 pg [facility] MCHC 32.3 32.0 - 35.7 g/dL [facility] Platelets 281 145 - 357 x10(3)/[facility]ORATORY RDWSD 43.3 36.0 - 45.0 fL [facility] RDWCV 13.1 11.4 - 13.8 % [facility] MPV 8.9 7.6 - 12.9 fL [facility] nRBC % Auto 0.0 % [facility] nRBC Abs Auto 0.000 0.000 - 0.000 x10(3)/mcL [facility] Blood 04/01/2024 4:51 AM EDT 04/01/2024 5:44 AM EDT Narrative Resulting Agency Comment Spec In Lab Emerson Ayala MD HEMATOLOGY ORDERAB LES [facility] [place] [address] * (ABNORMAL) Comprehensive metabolic panel (non-fasting) (04/01/2024 4:51 AM EDT) Glucose Lvl 71 65 - 199 mg/dL [facility] Comment:Diabetes: >=200 mg/d L plus symptoms BUN 6(L) 10 - 20 mg/dL [facility] Creatinine 0.57(L) 0.80 - 1.50 mg/dL [facility] Sodium 143 135 - 145 mmol/L [facility] Potassium 2.8(Criti citlali) 3.5 - 5.0 mmol/L [facility] Comment: Called by: , Read back by: Marissa Wong, Date/Time:04/01/24 06:40. Please note: ??Patients with WBC >100,000 may have falsely elevated Potassium levels. ??For accurate Potassium quantification in these patients send serum separator tube (gold top) for subsequent determinations. ??Contact the Clinical Chemistry Laboratory if there are any questions. Chloride 99 98 - 107 mmol/L [facility] CO2 30 22 - 31 mmol/L [facility] Anion Gap 14 5 - 15 mmol/L [facility] Calcium 8.2(L) 8.5 - 10.5 mg/dL [facility] Total Protein 5.1(L) 6.1 - 8.0 g/dL [facility] Albumin 2.6(L) 3.2 - 5.2 g/dL [facility] AST 18 0 - 39 unit/L [facility] ALT 13 0 - 55 unit/L [facility] Alk Phos 100 40 - 130 unit/L [facility] Total Bilirubin 0.8 0.2 - 1.3 mg/dL [facility] Estimated GFR 119 >=60 mL/min/1. 73 m?? [facility] [...] Lab Emerson Ayala MD CHEMISTRY ORDERABL ES [facility] [place] [address] * CT Chest wo Contrast (Generic) (03/31/2024 5:35 PM EDT) WORKSTATION ID [id number] RAD Anatomical Region Laterality Modality Chest Computed Tomogra phy Impressions 04/01/2024 8:45 AM EDT No evidence for intrathoracic metastasis Thank you for letting us participate in the care of this patient. ??If you are a health care provider and have any questions regarding this report, please contact the number below. ??For patients who have questions please contact the health career information specialist that requested your imaging first. ? Narrative 04/01/2024 8:45 AM EDT EXAMINATION: CT [...] who have questions please contactthe health career information specialist that requested your imaging first. Emerson Ayala MD IMG CT ORDERABLES * Request For 2nd Read CT Abdomen & Pelvis (03/31/2024 5:05 PM EDT) [employer] Signature WORKSTATION ID [id number] RAD Anatomical Region Laterality Modality Abdomen, Pelvis [...] have questions please contact the health career information specialist that requested your imaging first. ? Electronically signed by: CHRSYTAL RODRIGUEZ MD, [facility] ([phone]), at 04/01/2024 8:51 AM Narrative 04/01/2024 8:51 AM EDT EXAMINATION: REQUEST FOR 2ND READ CT ABDOMEN AND PELVIS CLINICAL HISTORY: pancreatic cancer -needed for staging purpose, please compare to 12/15/23 CT; Sending Institution [facility]; Date of exam [id number]; I believe [...] purpose, pleasecompare to 12/15/23 CT; Sending Institution [facility]; Date of exam [id number]; I believe [...] who have questions please contactthe health career information specialist that requested your imaging first. Electronically signed by: CHRYSTAL RODRIGUEZ MD, [facility]([phone]), at 04/01/2024 8:51 AM Emerson Ayala MD IMG OUTSIDE INTERP RETATION ORDERABLES * XR ERCP (03/31/2024 12:37 PM EDT) Narrative [facility] - 03/31/2024 12:37 PM EDT See PACS for result report. Emerson Ayala MD IMJohn FILM LIBRARY O RDERABLES [place], [place] * (ABNORMAL) Non-Counter Former Final Report (03/31/2024 11:12 AM EDT) Non-Counter Former Final Report [id number] ? Location: L1WD; 0104; A The signing pathologist has (i) examined the relevant preparation(s) for the specimen(s) and (ii) rendered or confirmed the diagnosis(es). . ? Non-Counter Former Final DIAGNOSIS Positive for Malignancy Electronically signed by: ?Yony HERNANDEZ, Zane Swenson Verified: ??04/02/2024 13:17 ??Cytopathologist Performed at: ??-[facility] [place], [place] [address] Respiratory Therapy Assistant: Madison Monreal MD, AP, ??CLIA Certificate: [id number] DISCUSSION Pancreas: uncinate (EUS-guided FNA) - Adenocarcinoma. [...] The assay was performed according to the scalemaker's instructions using anti-MLH-1 (ES05), anti-MSH-2 ([id number]), anti-MSH-6 (44), and anti-PMS-2 (MRQ-28) antibodies. THIS [...] see Diagnosis and Discussion for final interpretation.(A) [facility] 03/31/2024 11:1 2 AM EDT Alan Silva MD PATHOLOGY/CYTOLOGY ORDERABLES Performing Organization Address [facility] [place] [address] * Cytopathology Non-Gynecological (03/31/2024 11:12 AM EDT) AP Specimen 03/31/2024 11:1 2 AM EDT 03/31/2024 11:12 AM EDT Narrative [facility] - 03/31/2024 11:12 AM EDT Specimen requisition ordered. ??Separate Pathology report to follow Alan Silva MD PATHOLOGY/CYTOLOGY ORDERABLES Performing Organization Address [facility] [place] [address] * UPPER EUS-ENDOSCOPIC ULTRASOUND (03/31/2024 9:53 AM EDT) UPPER ENDOSCOPIC ULTRASOUND [facility] Endoscopy Procedure Date: 03/31/2024 9:53 AM ? Patient Name: Dylan Michele ? Date of : 1970 ? Age: 53 ? Order #: [id number] ? Instrument Name: [id number] ? Procedure: ? Upper EUS Indications: ? [...] the ? physician, the nurse, the ? density control puncher and the air quality technician. The ? procedure was verified in [...] care under ? the supervision of a DEVELOPMENT VICE PRESIDENT was ? determined to be medically ? [...] were ? made with the 22 gauge Alex and Ani biopsy needle using ? a transduodenal approach. [...] GENERAL SURGICAL ORD ERABLES Performing Organization Address City/[facility] Co de Phone Number [facility] * Phosphorus (03/31/2024 4:09 AM EDT) Phosphorus 3.6 2.5 - 4.5 mg/dL [facility] Blood Venous Draw / Unknown 03/31/2024 4:09 AM EDT 03/31/2024 4:23 AM EDT Narrative Resulting Agency Comment Spec In Lab Emerson Ayala MD CHEMISTRY ORDERABL ES Performing Organization Address [facility] Co de Phone Number [facility] [place] [address] * Magnesium (03/31/2024 4:09 AM EDT) Magnesium 0.69 0.69 - 1.07 mmol/L [facility] Blood Venous Draw / Unknown 03/31/2024 4:09 AM EDT 03/31/2024 4:23 AM EDT Narrative Resulting Agency Comment Spec In Lab Emerson Ayala MD CHEMISTRY ORDERABL ES Performing Organization Address City/[facility]/ZIP [place] [address] * Differential, Automated (03/31/2024 4:09 AM EDT) Neutrophils % 61.8 % [facility] Neutr Abs (ANC) 3.94 1.70 - 6.10 x10(3)/[facility] Lymphocytes % 30.9 % [facility] Lymphocytes Abs 2.0 0.9 - 3.2 x10(3)/[facility] Monocytes % 6.1 % [facility] Monocyte Abs 0.4 0.3 - 0.9 x10(3)/[facility] Eosinophils % 0.6 % [facility] Eosinophils Abs 0.0 0.0 - 0.4 x10(3)/[facility] Basophils % 0.3 % [facility] Basophils Abs 0.0 0.0 - 0.1 x10(3)/[facility] Immature Gran % 0.30 % [facility] Comment: Immature granulocytes(IG's)percentage and absolute count will include metamyelocytes, myelocytes, and promyelocytes. Blood smears from CBCs yielding IG's will be scanned manually for concordance. If this scan disagrees with the automated IG or if promyelocytes are noted, a manual differential will be performed. [place] Gran Abs 0.02 0.00 - 0.04 x10(3)/[facility] Blood 03/31/2024 4:09 AM EDT 03/31/2024 4:21 AM EDT Narrative Resulting Agency Comment Spec In Lab Emerson Ayala MD HEMATOLOGY ORDERAB LES Performing Organization Address City/[facility]/ZIP Co de Phone Number [facility] [place] [address] * Hemogram (03/31/2024 4:09 AM EDT) WBC 6.4 4.0 - 9.5 x10(3)/[facility] RBC 4.78 4.58 - 5.54 x10(6)/[facility] Hemoglobin 14.3 13.7 - 16.5 g/dL [facility] LABORATORY Hematocrit 42.7 40.5 - 48.5 % [facility] MCV 89.3 82.9 - 93.1 fL [facility] MCH 29.9 27.5 - 32.1 pg [facility] MCHC 33.5 32.0 - 35.7 g/dL [facility] Platelets 263 145 - 357 x10(3)/[facility] LABORATORY RDWSD 43.3 36.0 - 45.0 [facility] LABORATORY RDWCV 13.1 11.4 - 13.8 % [facility] MPV 8.5 7.6 - 12.9 [facility] LABORATORY nRBC % Auto 0.0 % [facility] nRBC Abs Auto 0.000 0.000 - 0.000 x10(3)/[facility] LABORATORY Blood 03/31/2024 4:09 AM EDT 03/31/2024 4:21 AM EDT Narrative Resulting Agency Comment Spec In Lab Emerson Ayala MD HEMATOLOGY ORDERAB LES [facility] [place] [address] * (ABNORMAL) Comprehensive metabolic panel (non-fasting) (03/31/2024 4:09 AM EDT) Pathologist [facility] Glucose Lvl 79 65 - 199 mg/dL [facility] Comment:Diabetes: >=200 mg/d L plus symptoms BUN 6(L) 10 - 20 mg/dL [facility] Creatinine 0.58(L) 0.80 - 1.50 mg/dL [facility] Sodium 143 135 - 145 mmol/L [facility] Potassium 3.1(L) 3.5 - 5.0 mmol/L [facility] Comment: Please note: ??Patients with WBC >100,000 may have falsely elevated Potassium levels. ??For accurate Potassium quantification in these patients send serum separator tube (gold top) for subsequent determinations. ??Contact the Clinical Chemistry Laboratory if there are any questions. Chloride 98 98 - 107 mmol/L [facility] CO2 34(H) 22 - 31 mmol/L [facility] Anion Gap 11 5 - 15 mmol/L [facility] Calcium 8.1(L) 8.5 - 10.5 mg/dL [facility] Total Protein 5.2(L) 6.1 - 8.0 g/dL [facility] Albumin 2.5(L) 3.2 - 5.2 g/dL [facility] Comment:result rechecked-HT AST 15 0 - 39 unit/L [facility] ALT 11 0 - 55 unit/L [facility] Alk Phos 104 40 - 130 unit/L [facility] Total Bilirubin 0.6 0.2 - 1.3 mg/dL [facility] Estimated GFR 118 >=60 mL/min/1. 73 m?? [facility] [...] MD CHEMISTRY ORDERABL ES Performing Organization Address [facility] Co de Phone Number [facility] [place] [address] * (ABNORMAL) Urinalysis Microscopic Exam (03/30/2024 4:45 AM EDT) RBC UA 1 0 - 3 /HPF [facility] WBC UA 8(H) 0 - 3 /HPF [facility] Bacteria UA Rare(A) None /HPF [facility] Comment: Interpret results with caution, microscopic results are from suboptimal specimen volume Squam Epith UA 1 <=4 /HPF [facility] Hyaline Cast UA 5(H) 0 - 2 /LPF [facility] Clean Catch Urine 03/30/2024 4:45 AM EDT 03/30/2024 5:20 AM EDT Narrative Resulting Agency Comment Spec In Lab Dereje TONEY URINE ORDERABLES Performing Organization Address [facility] Co de Phone Number [facility] [place] [address] * (ABNORMAL) Urinalysis with reflex Culture (03/30/2024 4:45 AM EDT) Glucose UA Negative Negative mg/dL [facility] Protein UA 30(A) Negative mg/dL [facility] Bilirubin UA Small(A) Negative mg/dL [facility] Comment: Clinical correlation required for positive Urine Bilirubin results as false positive may occur with some drugs and drug related products. If a false positive is suspected a serum total bilirubin should be considered if clinically indicated. Urobilinogen UA Normal Normal mg/dL [facility] pH UA 8.5(H) 5.0 - 8.0 [facility] Blood UA Negative Negative mg/dL [facility] Ketones UA 15(A) Negative mg/dL [facility] Nitrite UA Negative Negative [facility] Leukocytes UA Negative Negative mcL [facility] Appearance UA Clear Clear [facility] Spec [place] UA 1.019 1.005 - 1.030 [facility] Color UA Dark Yellow Yellow [facility] Culture Reflexed No [facility] Clean Catch Urine 03/30/2024 4:45 AM EDT 03/30/2024 5:20 AM EDT Narrative Resulting Agency Comment Spec In Lab Sanna Conner MD URINE ORDERABLES Performing Organization Address [facility] Co de Phone Number [facility] [place] [address] * CEA (03/30/2024 4:10 AM EDT) CEA 2.1 <=3.8 ng/mL [facility] Comment: Reference range: ??(20-69 years): [...] MD CHEMISTRY ORDERABL ES Performing Organization Address City/[facility]/ZIP Co de Phone Number [facility] [place] [address] * (ABNORMAL) Carbohydrate Antigen 19-9 (03/30/2024 4:10 AM EDT) CA 19-9 193.0(H) <=35.0 u/ml [facility] Comment: This result was generated using a Mychal Rosa Elena immunoassay. ??Results obtained from other methods or manufacturers cannot be used interchangeably with this method. Blood Venous Draw / Unknown 03/30/2024 4:10 AM EDT 03/30/2024 4:31 AM EDT Narrative Resulting Agency Comment Spec In Lab Emerson Ayala MD CHEMISTRY ORDERABL ES [facility] [place] [address] * Differential, Automated (03/30/2024 4:10 AM EDT) Neutrophils % 61.2 % [facility] Neutr Abs (ANC) 3.91 1.70 - 6.10 x10(3)/[facility]AT[facility] Lymphocytes % 28.2 % [facility] Lymphocytes Abs 1.8 0.9 - 3.2 x10(3)/[facility] Monocytes % 9.6 % [facility] Monocyte Abs 0.6 0.3 - 0.9 x10(3)/[facility] Eosinophils % 0.5 % [facility] Eosinophils Abs 0.0 0.0 - 0.4 x10(3)/[facility] Basophils % 0.3 % [facility] Basophils Abs 0.0 0.0 - 0.1 x10(3)/[facility] Immature Gran % 0.20 % [facility] Comment: Immature granulocytes(IG's)percentage and absolute count will include metamyelocytes, myelocytes, and promyelocytes. Blood smears from CBCs yielding IG's will be scanned manually for concordance. If this scan disagrees with the automated IG or if promyelocytes are noted, a manual differential will be performed. [place] Gran Abs 0.01 0.00 - 0.04 x10(3)/[facility] LABORATORY Blood 03/30/2024 4:10 AM EDT 03/30/2024 4:29 AM EDT Narrative Resulting Agency Comment Spec In Lab Darren Dejesus MD HEMATOLOGY ORDERABL ES [facility] [place] [place] [address] * Hemogram (03/30/2024 4:10 AM EDT) WBC 6.4 4.0 - 9.5 x10(3)/[facility]AT[facility] RBC 4.87 4.58 - 5.54 x10(6)/[facility] Hemoglobin 14.5 13.7 - 16.5 g/dL [facility] Hematocrit 42.9 40.5 - 48.5 % [facility] MCV 88.1 82.9 - 93.1 [facility] MCH 29.8 27.5 - 32.1 pg [facility] MCHC 33.8 32.0 - 35.7 g/dL [facility] Platelets 286 145 - 357 x10(3)/[facility] LABORATORY RDWSD 41.7 36.0 - 45.0 [facility]ORATORY RDWCV 12.9 11.4 - 13.8 % [facility] MPV 8.7 7.6 - 12.9 [facility]ORY nRBC % Auto 0.0 % [facility] nRBC Abs Auto 0.000 0.000 - 0.000 x10(3)/[facility] Blood 03/30/2024 4:10 AM EDT 03/30/2024 4:29 AM EDT Narrative Resulting Agency Comment Spec In Lab Darren Dejesus MD HEMATOLOGY ORDERABL ES [facility] [address] * (ABNORMAL) Prealbumin (03/30/2024 4:10 AM EDT) Prealbumin 7(L) 20 - 40 mg/dL [facility] Comment: Prealbumin levels are generally lower in the pediatric population; adult concentrations are usually attained near puberty. Blood 03/30/2024 4:10 AM EDT 03/30/2024 4:29 AM EDT Narrative Resulting Agency Comment Spec In Lab Marck Mckeon MD CHEMISTRY OR DERABLES Performing Organization Address [facility] Co de Phone Number [facility] [address] * Hemoglobin A1c (03/30/2024 4:10 AM EDT) Hemoglobin A1C 5.2 4.3 - 5.6 % [facility] Comment: Reference Range: 4.3 - [...] 1, S67-74 Est Avg Gluc 104 mg/dL [facility] Blood 03/30/2024 4:10 AM EDT 03/30/2024 4:29 AM EDT Narrative Resulting Agency Comment Spec In Lab Pennie Jiménez MD CHEMISTRY ORDERABLES Performing Organization Address [facility] Co de Phone Number [facility] [address] * Phosphorus (03/30/2024 4:10 AM EDT) Phosphorus 2.6 2.5 - 4.5 mg/dL [facility] Blood 03/30/2024 4:10 AM EDT 03/30/2024 4:29 AM EDT Narrative Resulting Agency Comment Spec In Lab Pennie Jiménez MD CHEMISTRY ORDERABLES [facility] [place] [address] * Magnesium (03/30/2024 4:10 AM EDT) Pathologist [facility] Magnesium 0.74 0.69 - 1.07 mmol/L [facility] Blood 03/30/2024 4:10 AM EDT 03/30/2024 4:29 AM EDT Narrative Resulting Agency Comment Spec In Lab Pennie Jiménez MD CHEMISTRY ORDERABLES Performing Organization Address [facility] Co de Phone Number [facility] [address] * (ABNORMAL) Basic Metabolic Panel (non-fasting) (03/30/2024 4:10 AM EDT) [facility] Glucose Lvl 86 65 - 199 mg/dL [facility] Comment:Diabetes: >=200 mg/d L plus symptoms BUN 5(L) 10 - 20 mg/dL [facility] Creatinine 0.59(L) 0.80 - 1.50 mg/dL [facility] Sodium 145 135 - 145 mmol/L [facility] Potassium 3.5 3.5 - 5.0 mmol/L [facility] Comment: Please note: ??Patients with WBC >100,000 may have falsely elevated Potassium levels. ??For accurate Potassium quantification in these patients send serum separator tube (gold top) for subsequent determinations. ??Contact the Clinical Chemistry Laboratory if there are any questions. Chloride 98 98 - 107 mmol/L [facility] CO2 38(H) 22 - 31 mmol/L [facility] Anion Gap 9 5 - 15 mmol/L [facility] Calcium 8.1(L) 8.5 - 10.5 mg/dL [facility] Estimated GFR 117 >=60 mL/min/1. 73 m?? [facility] [...] In Lab Pennie Jiménez MD CHEMISTRY ORDERABLES [facility] [address] * XR Chest One View (03/29/2024 9:34 PM EDT) [employer] WORKSTATION ID [id number] RAD Anatomical Region Laterality Modality Chest N/A [...] have questions please contact the health career information specialist that requested your imaging first. ? Electronically signed by: Kelsie Goodman MD, [facility] ([phone]), at 03/29/2024 10:36 PM Narrative 03/29/2024 10:36 [...] who have questions please contactthe health career information specialist that requested your imaging first. Bernarda Martinez MD IMG DX ORDERABLES * (ABNORMAL) pro-Brain Natriuretic Peptide (03/29/2024 4:32 PM EDT) ProBNP 465(H) <=124 pg/mL [facility] Blood Venous Draw / Unknown 03/29/2024 4:32 PM EDT 03/29/2024 4:39 PM EDT Narrative Resulting Agency Comment Spec In Lab Ramonita Abbasi DO CHEMISTRY ORDERABL ES Performing Organization Address City/[facility]/ZIP Co de Phone Number [facility] [address] * (ABNORMAL) Phosphorus (03/29/2024 4:32 PM EDT) Phosphorus 1.5(L) 2.5 - 4.5 mg/dL [facility] Blood Venous Draw / Unknown 03/29/2024 4:32 PM EDT 03/29/2024 4:39 PM EDT Narrative Resulting Agency Comment Spec In Lab Ramonita Abbasi DO CHEMISTRY ORDERABL ES Performing Organization Address [facility] Co de Phone Number [facility] [place] [address] * Magnesium (03/29/2024 4:32 PM EDT) Magnesium 0.89 0.69 - 1.07 mmol/L [facility] Blood Venous Draw / Unknown 03/29/2024 4:32 PM EDT 03/29/2024 4:39 PM EDT Narrative Resulting Agency Comment Spec In Lab Ramonita Abbasi DO CHEMISTRY ORDERABL ES Performing Organization Address City/[facility]/ZIP Co de Phone Number [facility] [place] [address] * Gold Tube HOLD (03/29/2024 4:32 PM EDT) Gold Hold Sample in lab. [facility] Blood Venous Draw / Unknown 03/29/2024 4:32 PM EDT 03/29/2024 4:38 PM EDT Dereje TONEY CHEMISTRY ORDERABLES Performing Organization Address City/[facility]/ZIP Co de Phone Number [facility] [place] [address] * Blue Tube HOLD (03/29/2024 4:32 PM EDT) Pathologist [facility] Blue Hold Sample in lab. [facility] Blood Venous Draw / Unknown 03/29/2024 4:32 PM EDT 03/29/2024 4:39 PM EDT Dereje TONEY HEMATOLOGY ORDERABLE S [facility] [place] [address] * (ABNORMAL) Differential, Automated (03/29/2024 4:32 PM EDT) [facility] Neutrophils % 68.4 % [facility] Neutr Abs (ANC) 7.16(H) 1.70 - 6.10 x10(3)/[facility] Lymphocytes % 22.7 % [facility] Lymphocytes Abs 2.4 0.9 - 3.2 x10(3)/[facility]ORY Monocytes % 8.2 % [facility] Monocyte Abs 0.9 0.3 - 0.9 x10(3)/[facility]ORY Eosinophils % 0.2 % [facility] Eosinophils Abs 0.0 0.0 - 0.4 x10(3)/[facility] Basophils % 0.2 % [facility] Basophils Abs 0.0 0.0 - 0.1 x10(3)/[facility] Immature Gran % 0.30 % [facility] Comment: Immature granulocytes(IG's)percentage and absolute count will include metamyelocytes, myelocytes, and promyelocytes. Blood smears from CBCs yielding IG's will be scanned manually for concordance. If this scan disagrees with the automated IG or if promyelocytes are noted, a manual differential will be performed. [place] Gran Abs 0.03 0.00 - 0.04 x10(3)/ L [facility] Blood 03/29/2024 4:32 PM EDT 03/29/2024 4:38 PM EDT Narrative Resulting Agency Comment Spec In Lab Dereje TONEY HEMATOLOGY ORDERABLE S [facility] [place] [address] * (ABNORMAL) Hemogram (03/29/2024 4:32 PM EDT) WBC 10.5(H) 4.0 - 9.5 x10(3)/[facility] LABORATORY RBC 5.40 4.58 - 5.54 x10(6)/[facility] Hemoglobin 16.1 13.7 - 16.5 g/dL [facility] Hematocrit 47.3 40.5 - 48.5 % [facility] MCV 87.6 82.9 - 93.1 [facility] MCH 29.8 27.5 - 32.1 pg [facility] MCHC 34.0 32.0 - 35.7 g/dL [facility] Platelets 398(H) 145 - 357 x10(3)/[facility]ORATORY RDWSD 41.1 36.0 - 45.0 [facility]ORY RDWCV 12.9 11.4 - 13.8 % [facility] MPV 8.5 7.6 - 12.9 [facility] nRBC % Auto 0.0 % [facility] nRBC Abs Auto 0.000 0.000 - 0.000 x10(3)/[facility] Blood 03/29/2024 4:32 PM EDT 03/29/2024 4:38 PM EDT Narrative Resulting Agency Comment Spec In Lab Dereje TONEY HEMATOLOGY ORDERABLE S [facility] [place] [address] * Lipase (03/29/2024 4:32 PM EDT) Lipase 14 0 - 60 unit/L [facility] Blood 03/29/2024 4:32 PM EDT 03/29/2024 4:38 PM EDT Narrative Resulting Agency Comment Spec In Lab Sanna Conner MD CHEMISTRY ORDERABLES [facility] [place] [address] * (ABNORMAL) Comprehensive metabolic panel (non-fasting) (03/29/2024 4:32 PM EDT) Glucose Lvl 91 65 - 199 mg/dL [facility] Comment:Diabetes: >=200 mg/d L plus symptoms BUN 4(L) 10 - 20 mg/dL [facility] Creatinine 0.57(L) 0.80 - 1.50 mg/dL [facility] Sodium 141 135 - 145 mmol/L [facility] Potassium 2.5(Criti citlali) 3.5 - 5.0 mmol/L [facility] Comment: Called by: [facility], Read back by: Jesus Manuel Barton, Date/Time:03/29/24 17:42. Please note: ??Patients with WBC >100,000 may have falsely elevated Potassium levels. ??For accurate Potassium quantification in these patients send serum separator tube (gold top) for subsequent determinations. ??Contact the Clinical Chemistry Laboratory if there are any questions. Chloride 91(L) 98 - 107 mmol/L [facility] CO2 40(H) 22 - 31 mmol/L [facility] Anion Gap 10 5 - 15 mmol/L [facility] Calcium 9.0 8.5 - 10.5 mg/dL [facility] Total Protein 6.3 6.1 - 8.0 g/dL [facility] Albumin 3.5 3.2 - 5.2 g/dL [facility] AST 20 0 - 39 unit/L [facility] ALT 15 0 - 55 unit/L [facility] Alk Phos 129 40 - 130 unit/L [facility] Total Bilirubin 0.9 0.2 - 1.3 mg/dL [facility] Estimated GFR 119 >=60 mL/min/1. 73 m?? [facility] [...] In Lab Sanna Conner MD CHEMISTRY ORDERABLES [facility] [place] [address] * Film Library- Storage Only CT Abdomen & Pelvis (03/25/2024 12:00 AM EDT) Narrative Dicom, Auditing User - 03/29/2024 9:14 PM EDT This exam is auto-finalizing. It's purpose is for storage only. Bernarda Martinez MD [facility] FILM LIBRARY ORD ERABLES * Film Library- Storage Only Ultrasound Study (03/11/2024 12:05 AM EDT) Narrative Dicom, Auditing User - 03/29/2024 9:54 PM EDT This exam is auto-finalizing. It's purpose is for storage only. Bernarda Martinez MD [facility] FILM LIBRARY ORD ERABLES * Film Library- Storage Only CT Chest (03/11/2024 12:00 AM EDT) Narrative Dicom, Auditing User - 03/29/2024 9:52 PM EDT This exam is auto-finalizing. It's purpose is for storage only. Bernarda Martinez MD [facility] FILM LIBRARY ORD ERABLES * Film Library- Storage Only CT Abdomen & Pelvis (12/15/2023 12:00 AM EST) Narrative Dicom, Auditing User - 03/31/2024 4:56 PM EDT This exam is auto-finalizing. It's purpose is for storage only. Emerson Ayala MD [facility] FILM LIBRARY O RDERABLES documented in this encounter Visit Diagnoses Not on filedocumented in this encounter Admitting Diagnoses Diagnosis Nausea [...] Given 04/03/2024 8:39 PM EDT 40 mg lidocaine (Xylocaine) 1% (10 mg/mL) injection 3 [...] Given 04/04/2024 8:06 AM EDT 40 mg simethicone (Mylicon) (40 mg/0.6mL) oral liquid [...] link provided on this medication record., Routine documented in this encounter Active and Recently Administered Medications Times are shown in EDT. Scheduled Medication Order 04/04/2024 04/05/2024 04/06/2024 carvediloL (Coreg) tablet 6.25 mg 6.25 mg, Oral, 2 TIMES DAILY WITH MEALS, First dose on Thu03/30/24 at 0900, Until Discontinued, Routine 0806 (Given - Provider: Marcella Aguilera RN)1630 (Given - Provider: Marcella Aguilera RN) 0811 (Given - Provider: Farideh Dhaliwal RN)1728 (Given - Provider: Farideh Dhaliwal RN) 0810 (Given - Provider: Farideh Dhaliwal RN) docusate sodium (Colace) capsule 100 mg 100 mg, Oral, 2 TIMES DAILY, First dose on Thu04/05/24 at 2100, Until Discontinued, Routine 2099 (Hold - Provider: Geovanny Retana RN - [...] Discontinued, Routine 0543 (Given - Provider: Meenu Coelho, SAM)0820 (Given - Provider: Farideh Dhaliwal, SAM)1257 (Given - Provider: Farideh Dhaliwal RN)1732 (Given - Provider: Farideh Dhaliwal RN)2003 (Given - Provider: Geovanny Retana RN) 0810 (Given - Provider: Farideh Dhaliwal RN) sodium chloride 0.9 % (flush) (BD PosiFlush Normal Saline 0.9) flush 5 mL 5 mL, Intravenous, 2 TIMES DAILY, First dose on Thu03/29/24 at 2115, Until Discontinued, Routine 0900 (Given - Provider: Marcella Aguilera, RN)2008 (Given - Provider: Meenu Coelho, SAM) 0816 (Given - Provider: Farideh Dhaliwal, SAM)2002 (Given - Provider: Geovanny Retana, RN) 0811 (Given - Provider: Farideh Dhaliwal, RN) thiamine (Vitamin B-1) tablet 100 mg 100 mg, Oral, DAILY, 7 doses, First dose on Thu03/30/24 at 1615, Last dose on Thu04/05/24 at 0900, Routine 0806 (Given - Provider: Marcella Aguilera RN) 0817 (Given - Provider: Farideh Dhaliwal, SAM) PRN Medication Order 04/04/2024 04/05/2024 04/06/2024 alum-mag hydroxide-simeth (Maalox) (40 mg-40 mg-4 mg/mL) oral liquid 10 mL 10 mL, Oral, 3 TIMES DAILY PRN, Starting on Thu04/01/24 at 0948, Until Thu04/06/24 at 1440, Heartburn, Routine 0806 (Given - Provider: Marcella Aguilera RN)1630 (Given - Provider: Marcella Aguilera RN)2251 (Given - Provider: Meenu Coelho RN) 1510 (Given - Provider: Melody Matthews RN)1944 [...] 2010 (Given - Provider: Meenu Coelho, SAM) 1944 (Given - Provider: Geovanny Retana, RN) ondansetron (pf) (Zofran) (2 mg/mL) injection [...] ineffective. documented in this encounter Care Teams Diamond Sander Relationship Specialty Start Date End Date Cedric Rosenbaum DO [address] [place] [phone] PCP - General Family Medicine 03/29/24 documented as of this encounter
--- OUTSIDE RECORDS SUMMARY | 2024-05-14 12:58 | XMS_ITS | Encounter Summary ---
[place] [address] Care Team Providers Care Side Piece Coverer Name Role Phone Unavailable Primary Care Provider Unavailabl e Encounter Details Date Type Department Care Team (Late st Contact Info) Description 03/25/2024 Ancillary Procedure [place] [phone] Social History Tobacco Use Types Packs/Day Years [...] AM EDT Office Visit Hematology/Oncology at [address] [phone] Ministerio Kelly MD [facility] [place] [address] Katherine Guadarrama APRN [address] [place] [address] HEMATOLOGY AND ONGOLOCY [place], [place] [phone] 05/20/2024 9:00 AM EDT Infusion Hematology Oncology at [address] [phone] 05/30/2024 1:00 PM EDT Tech Visit [place] [phone] Dena Graves 05/30/2024 4:00 PM EDT Office [place] [address] Derek Evans MD [facility] [place] [address] 06/03/2024 8:30 AM EDT Office Visit Hematology/Oncology at [address] [phone] Ministerio Kelly MD [facility] [place] [address] Katherine Guadarrama APRN [address] [place] [address] DR H[place]ATOLOGY [place] [address] 06/03/2024 9:00 AM EDT Infusion Hematology Oncology at [address] [phone] documented as of this encounter Procedures Procedure Name Priority Date/Time Associated Diagnosis Comments FILM LIBRARY STORAGE ONLY CT ABDOMEN AND PELVIS STAT 03/25/2024 12:00 AM EDT documented in this encounter [...]
--- OUTSIDE RECORDS SUMMARY | 2024-05-14 12:58 | XMS_ITS | Encounter Summary ---
Author Organization [facility] Address [address] [place] [address] Care Team Providers Care Water Mangle Tender Name Role Phone Paul Ribeiro MD Primary Care Provider [phone] Encounter Details Date Type Department Care Team (Late st Contact Info) Description 08/28/2020 Lab Requisition [facility] [place] Pathology & Laboratory Medicine - [facility] [address] [place] [address] Telma Seaman MD [address] [place] [address] [phone] Encounter for screening for other viral diseases [...] ORDER STANDALONE - BROAD COVID TEST Today 08/28/2020 9:50 EDT Encounter for screening for other viral diseases COVID-19 TESTING Today 08/28/2020 9:50 EDT Encounter for screening for other viral diseases documented in this encounter Results * DO NOT ORDER STANDALONE - BROAD COVID TEST (08/28/2020 9:50 EDT) COVID-19 rt-PCR Result NEGATIVE Negative 08/29/2020 20:09 EDT [facility] Comment: 2019-novel Coronavirus (2019-nCoV) not [...] in accordance with CLIA regulations, [employer] (CAP) guidelines (Jan 19, 2020), and FDA guidance (Dec 31, 2019). This test is only for use under the Food and Drug Administration's Emergency Use Authorization. Swab ENTIRE NASOPHARYNX / Unknown 08/28/2020 9:50 EDT 08/28/2020 22:30 EDT Telma Seaman MD MICROBIOLOGY - GENER AL ORDERABLES [facility] [place] * COVID-19 TESTING (08/28/2020 9:50 EDT) COVID-19 rt-PCR Result NEGATIVE Negative 09/22/2020 18:47 EST [facility] Comment: 2019-novel Coronavirus (2019-nCoV) not [...] in accordance with CLIA regulations, [employer] (CAP) guidelines (Jan 19, 2020), and FDA guidance (Dec 31, 2019). This test is only for use under the Food and Drug Administration's Emergency Use Authorization. Performing Lab [facility] 09/22/2020 18:47 EST [facility] Swab ENTIRE NASOPHARYNX / Unknown 08/28/2020 9:50 EDT 08/28/2020 22:30 EDT Telma Seaman MD MICROBIOLOGY - GENER AL ORDERABLES [facility] [address] [place] [phone] [place] [address] LABORATORY [place], [place] documented in this encounter Visit Diagnoses Diagnosis Encounter for screening for other viral diseases documented in this encounter Care Teams Water Mangle Tender Relationship Specialty Start Date End Date Paul Ribeiro MD PCP - General 06/26/14 documented as of this encounter
--- OUTSIDE RECORDS SUMMARY | 2024-05-14 12:58 | XMS_ITS | Encounter Summary ---
Author Organization [facility] Address [address] [place] [address] Care Team Providers Care [employer] Converter Name Role Phone Paul Ribeiro MD Primary Care Provider [phone] Encounter Details Date Type Department Care Team (Late st Contact Info) Description 10/30/2020 Lab Requisition [facility] Pathology & Laboratory Medicine - [facility] [address] [place] [address] Telma Seaman MD [address] [place] [address] [phone] Contact with and (suspected) exposure to other [...] ORDER STANDALONE - BROAD COVID TEST Today 10/30/2020 7:30 EST Contact with and (suspected) exposure to other viral communicable diseases COVID-19 TESTING Today 10/30/2020 7:30 EST Contact with and (suspected) exposure to other viral communicable diseases documented in this encounter Results * DO NOT ORDER STANDALONE - BROAD COVID TEST (10/30/2020 7:30 EST) COVID-19 rt-PCR Result NEGATIVE Negative 10/31/2020 18:18 EST [facility] Comment: 2019-novel Coronavirus (2019-nCoV) [...] in accordance with CLIA regulations, [employer] (CAP) guidelines (Jan 19, 2020), and FDA guidance (Dec 31, 2019). This test is only for use under the Food and Drug Administration's Emergency Use Authorization. Swab NASAL / Unknown 10/30/2020 7 :30 EST 10/30/2020 21:53 EST Telma Seaman MD MICROBIOLOGY - [facility] AL ORDERABLES [facility] [place], [place] * COVID-19 TESTING (10/30/2020 7:30 EST) COVID-19 rt-PCR Result NEGATIVE Negative 10/31/2020 20:58 EST [facility] Comment: 2019-novel Coronavirus (2019-nCoV) not detected [...] in accordance with CLIA regulations, [employer] of [employer] (CAP) guidelines (Jan 19, 2020), and FDA guidance (Dec 31, 2019). This test is only for use under the Food and Drug Administration's Emergency Use Authorization. Performing Lab [facility] 10/31/2020 20:58 EST [facility] Swab NASAL / Unknown 10/30/2020 7 :30 EST 10/30/2020 21:53 EST Telma Seaman MD MICROBIOLOGY - GENER AL ORDERABLES [facility] [address] [place] [phone] [place] [address] LABORATORY [place], [place] documented in this encounter Visit Diagnoses Diagnosis Contact with and (suspected) exposure to other viral communicable diseases documented in this encounter Care Teams [employer] Converter Relationship Specialty Start Date End Date Paul Ribeiro MD PCP - General 06/26/14 documented as of this encounter
--- NOTE | 2024-05-14 13:24 | ED.GENADUL_ITS ---
Discharge Plan Discharge Details Chief Complaint: Abd Prob Primary Care Provider: Cedric Rosenbaum ED Provider: Neto Chauhan Home Meds and New Rx's Prescriptions: No Action aspirin [Adult Low Dose Aspirin] 81 mg tablet,delayed release (DR/EC) 81 mg PO DAILY atorvastatin 40 mg tablet 40 mg PO DAILY acetaminophen 500 mg tablet 500 mg PO QID PRN aspirin [Adult Low Dose Aspirin] 81 mg tablet,delayed release (DR/EC) 81 mg PO DAILY bumetanide 1 mg tablet 1 mg PO DAILY colchicine 0.6 mg tablet 0.6 mg PO DAILY carvedilol 3.125 mg tablet 6.25 mg PO BID Patient Comments: 04/29/24- per pt PCP records from 04/14/24 Rx Instructions: must administer with a meal/food potassium chloride 20 mEq tablet extended release 20 meq PO DAILY Patient Comments: 04/29/24- per pt PCP records Zenpep 25,000-79,000- 105,000 unit capsule,delayed release(DR/EC) 2 cap PO TID Patient Comments: 04/29/24- per pt PCP records Rx Instructions: administer with meals and/or snacks alum-mag hydroxide-simeth [Maalox Advanced] 200-200-20 mg/5 mL suspension 10 ml PO TID PRN Patient Comments: 04/29/24- per pt PCP records Rx Instructions: administer between meals and at bedtime docusate sodium 100 mg capsule 200 mg PO BID Patient Comments: TAKE ONE CAPSULE BY MOUTH TWICE A DAY NEEDED FOR CONSTIPATION ondansetron 4 mg tablet,disintegrating 4 mg PO PRN Patient Comments: DISSOLVE ONE TABLET ON THE TONGUE EVERY 8 HOURS NEEDED FOR NAUSEA hydromorphone 2 mg tablet 2 mg PO Q3H PRN Patient Comments: TAKE ONE TO TWO TABLETS BY MOUTH EVERY 3 HOURS NEEDED FOR PAIN HPI General Date/Time Provider Initiated Documentation: 05/14/24 13:02 . HPI Narrative: 54 year-old male presents to ED today by POV/ambulating with a chief complaint of diarrhea since last Thursday- has known pancreatic CA, started on visit here at ED last week on hydromorphone which his oncology team continued long-term, continued abdominal pain with decreased p.o. intake reports poor urine output. Quality described as continued mid abdominal pain, no severe change, has been trying to use the prescribed hydromorphone sparingly, no radiation to fever, chest pain, shortness of breath, productive cough, black or bloody diarrhea, intractable nausea or vomiting, does endorse early satiety and poor p.o. intake, denies slurred speech or confusion or severe headache. Severity is described as moderate to severe. Palliating factors include hydromorphone is helping somewhat. Provoking factors include last chemotherapy was May 06. Events leading up to the incident/Associated Symptoms: Patient followed by [facility] oncology. Patient not anticoagulated. Related Data Home Medications ?Medication ?Instructions ?Recorded ?Confirmed acetaminophen 500 mg tablet 500 mg PO QID PRN 07/01/23 05/14/24 aspirin 81 mg tablet,delayed 81 mg PO DAILY 07/01/23 05/14/24 release (Adult Low Dose Aspirin) atorvastatin 40 mg tablet 40 mg PO DAILY 07/01/23 05/14/24 aspirin 81 mg tablet,delayed 81 mg PO DAILY 11/12/23 05/14/24 release (Adult Low Dose Aspirin) bumetanide 1 mg tablet 1 mg PO DAILY 11/12/23 05/14/24 colchicine 0.6 mg tablet 0.6 mg PO DAILY 11/12/23 05/14/24 docusate sodium 100 mg capsule 200 mg PO BID 04/26/24 05/14/24 ondansetron 4 mg disintegrating 4 mg PO PRN 04/26/24 05/14/24 tablet aluminum-mag hydroxide-simethicone 10 ml PO TID PRN 04/29/24 05/14/24 200 mg-200 mg-20 mg/5 mL oral susp (Maalox Advanced) carvedilol 3.125 mg tablet 6.25 mg PO BID 04/29/24 05/14/24 eqczna-yxyqvblz-nnaxasw 2 cap PO TID 04/29/24 05/14/24 25,000-79,000-105,000 unit capsule,delayed rel (Zenpep) potassium chloride 20 mEq 20 meq PO DAILY 04/29/24 05/14/24 tablet,extended release hydromorphone 2 mg tablet 2 mg PO Q3H PRN 05/14/24 05/14/24 Allergies Allergy/AdvReac Type Severity Reaction Status Date / Time prednisone Allergy Unknown low-magnesium Verified 05/14/24 13:01 requiring ER intervention General Stated Complaint: Abd Prob DAMIÁN: 2 Review of Systems All systems reviewed & are unremarkable except as noted in HPI and below Exam Narrative Exam Narrative: GENERAL APPEARANCE: Well-nourished, non-toxic, awake and alert, atraumatic, no acute distress. SKIN: Warm, pink, dry, intact, without rashes/lesions/ulcerations. HEAD: Normocephalic, atraumatic, normal hair distribution for gender/age. EYES: Pupils PERRLA, EOMs intact without nystagmus, normal conjunctiva, no exudates on lids/lashes. ENT: Nares patent, no circumoral cyanosis, no facial swelling NECK: Supple, trachea midline, painless cervical ROM. LUNGS/CHEST: Lungs CTA bilaterally, non-labored respirations, normal A/P diameter, symmetrical expansion, no chest wall deformity HEART (CV/PV): Regular rate and rhythm without murmur, no peripheral edema, no JVD. ABDOMEN: Soft, non-distended, no guarding. MSK: Normal ROM, no swelling/deformity to bilateral UEs or LEs, moving all extremities without weakness, no cyanosis, spine midline without tenderness, normal curvature. NEURO: Mental Status AAOx4 - alert to person, place, time, events No facial droop, no forehead involvement. Motor: No focal weakness - strength 5/5 in bilateral UEs and LEs, proximal and distal, symmetric. Sensory: sensation intact to light touch globally. Gait normal: patient ambulated without ataxia into ED room. PSYCH: euthymic, cooperative, pleasant, appropriate speech Course Vital Signs Vital signs: Vital Signs Temperature 37.0 C 05/14/24 12:56 Pulse 84 05/14/24 12:56 Respiratory Rate 14 05/14/24 12:56 Blood Pressure 118/84 05/14/24 12:56 Pulse Oximetry 100 05/14/24 12:56 Temperature 37.0 C 05/14/24 12:56 Temperature Source Oral 05/14/24 12:56 Pulse 84 05/14/24 12:56 Respiratory Rate 14 05/14/24 12:56 Blood Pressure 118/84 05/14/24 12:56 Blood Pressure Position Sitting 05/14/24 12:56 Pulse Oximetry 100 05/14/24 12:56 Oxygen Delivery Method Room Air 05/14/24 12:56 Oxygen Flow Rate 0 05/14/24 12:56 Pain Level 8 05/14/24 12:56 Medical Decision Making This dictation utilizes [id number] dictation software and may contain unedited grammatical errors. 54 year-old male presents to ED today by POV/ambulating with a chief complaint of diarrhea since last Thursday- has known pancreatic CA, started on visit here at ED last week on hydromorphone which his oncology team continued long-term, continued abdominal pain with decreased p.o. intake reports poor urine output. Quality described as continued mid abdominal pain, no severe change, has been trying to use the prescribed hydromorphone sparingly, no radiation to fever, chest pain, shortness of breath, productive cough, black or bloody diarrhea, intractable nausea or vomiting, does endorse early satiety and poor p.o. intake, denies slurred speech or confusion or severe headache. Severity is described as moderate to severe. Palliating factors include hydromorphone is helping somewhat. Provoking factors include last chemotherapy was May 06. Events leading up to the incident/Associated Symptoms: Patient followed by [facility] oncology. Sabra ents' medical history: Peripheral edema, pneumonia, pancreatic cancer, hyperlipidemia, GERD, cardiomyopathy, history of EtOH dependence, hypertension, obesity, chronic venous insufficiency. Family and social history: Noncontributory, lives at home independently. Pertinent exam findings / vital signs include diffuse upper abdominal pain, left lower quadrant abdominal pain, no CVA tenderness to percussion bilaterally, benign cardiopulmonary exam, neuro intact. Differential / pathologies of concern include chronic pain of cancer, nausea due to chemotherapy, GERD, diverticulitis, gastroenteritis, sepsis, biliary cholangitis or other biliary obstructive pathology. Diagnostic studies of: -CBC, BMP, liver panel, lipase, CRP/ESR, magnesium, lactate, procalcitonin, urinalysis, blood cultures, stool studies-C. difficile, Giardia O&P, lactoferrin, fecal bacteria, CT ABD/Pelvis w Contrast. -CBC shows no leukocytosis, baseline hemoglobin slightly improved from last visit on the first -CRP and ESR nonspecific and mildly elevated -BMP shows no actionable abnormality -Magnesium is 1.3 which is lower than at last visit likely due to GI losses -LFTs improved from last visit -Lipase within normal limits -Lactate negative, procalcitonin negative -UA pending at time of signout -Blood cultures pending -Stool studies -sample not provided, would be reasonable to discharge with at home collection -CT ABD/Pelvis pending at shift-change. Interventions of: -1L IVF LR, 2gm IV Mag Sulfate, 1mg IV hydromorphone, 15mg IV ketorlac, 1g IV APAP. ED Course/Assessment/Plan: 54-year-old pancreatic cancer patient presents with persistent upper abdominal pain, seen here May 02 by this ED provider. He had a negative workup at that time and was started on hydromorphone tablets which his oncology team continued, he is having trouble controlling his pain even with these and now he is having severe diarrhea for days, has problems with early satiety and feels he is not getting enough p.o. intake to keep up with his GI losses, this is consistent with his laboratory values showing the following magnesium which she was repleted here in the department, he has no signs of obstructive biliary patholo gy on labs and him proved labs and many studies today, no profound anemia. He has left lower quadrant tenderness and of concern for diverticulitis a CT was performed, which was pending at time of signout to Treasure Ayala PA-C. With negative CT would be reasonable for him to return home with a trial of Imodium and at home stool collection should he have not provided a sample by this time, may need magnesium supplmentation outpatient. Findings not consistent with sepsis, biliary cholangitis, pancreatitis, profound dehydration, SBO. Disposition of Abdominal Pain. Patient verbalized understanding of the plan and return to ED criteria and engaged in shared decision making. Medical Records Medical records reviewed: Yes I reviewed the patient's medical records. Imaging Data Radiologic Study: Attestation: I personally reviewed and interpreted this imaging study as follows: Imaging: CT Scan My impression: Pending at shift change. Lab Data Lab results reviewed: Yes I reviewed the patient's lab results. Labs: 05/14/24 14:00 Blood Blood Culture - Pending 05/14/24 13:48 Blood Blood Culture - Pending Laboratory Tests Range/Units 05/14/24 13:48 WBC (4.4-10.8) 10^3/uL 6.62 RBC (4.36-5.78) 10^6/uL 4.16 L Hgb (13.5-17.5) g/dL 12.3 L Hct (40.0-50.0) % 36.9 L MCV (80-95) fL 89 MCH (27.0-33.0) pg 29.6 MCHC (32.0-36.0) % 33.3 RDW (11.8-14.1) % 13.4 Plt Count (130-400) 10^3/uL 240 MPV (8.0-11.0) fL 8.5 Immature Gran % % 0.6 Neutrophils % % 72.6 Lymphocytes % % 17.1 Monocytes % % 8.3 Eosinophils % % 1.2 Basophils % % 0.2 Nucleated RBC % (0.0-0.3) % 0.0 Absolute Neutrophils (1.2-6.7) 10^3/uL 4.81 Absolute Lymphocytes (1.2-3.4) 10^3/uL 1.13 L Absolute Monocytes (0.1-0.8) 10^3/uL 0.55 Absolute Eosinophils (0.0-0.7) 10^3/uL 0.08 Absolute Basophils (0.0-0.2) 10^3/uL 0.01 ESR (0-20) mm/hr 37 H VBG Lactate (0.6-1.4) mmol/L 0.7 Sodium (136-145) mmol/L 137 Potassium (3.5-5.1) mmol/L 3.7 Chloride (98-107) mmol/L 101 Carbon Dioxide (21.0-32.0) mmol/L 33.1 H Anion Gap (3-11) mmol/L 2.9 L BUN (7-18) mg/dL 7 Creatinine (0.70-1.30) mg/dL 0.6 L Est GFR (CKD-EPI 2020) (mL/min/1.73m2) 116.15 Glucose (74-106) mg/dL 91 Calcium (8.5-10.1) mg/dL 9.1 Magnesium (1.8-2.4) mg/dL 1.3 L Total Bilirubin (0.2-1.0) mg/dL 0.50 Conjugated Bilirubin (0.0-0.2) mg/dL 0.2 AST (15-37) U/L 38 H ALT (16-63) U/L 56 Alkaline Phosphatase (46-116) U/L 161 H C-Reactive Protein (<or=0.5) mg/dL 2.56 H Total Protein (6.4-8.2) g/dL 6.7 Albumin (3.4-5.0) g/dL 2.9 L Lipase (16-77) U/L 38 Procalcitonin ng/mL < 0.1 Quality:SDOH Health Related Social Needs: No Data to Display PFSH All Active Problems (Updated 05/02/24 @ 17:47 by DAWNA Shelton) Abdominal pain of unknown cause (Acute) Abdominal pain (Acute) Rash (Acute) Pancreatic cancer (Acute) Olecranon bursitis (Acute) Obese (Chronic) Hypotensive episode (Acute) Hypotension (Acute) Hypomagnesemia (Acute) Heartburn (Acute) Epidermal cyst (Acute) Colitis (Acute) Allergic rhinitis (Acute) Alcoholism (Acute) Tarsal tunnel syndrome (Acute) Venous (peripheral) insufficiency (Acute) Neuropathy (Acute) Pain in right ankle (Acute) Pain in left ankle (Acute) Posterior tibial tendon dysfunction (PTTD) of right lower extremity (Acute) Posterior tibial tendon dysfunction (PTTD) of left lower extremity (Acute) Nicotine dependence (Acute) Mantoux: positive (Acute) Hyperlipidemia (Acute) Gout (Chronic) Medical History Weakness Pneumonia Peripheral edema Pancreatic cancer Olecranon bursitis of left elbow Mixed hyperlipidemia Pulmonary nodule Impacted cerumen GERD (gastroesophageal reflux disease) Fatigue Epidermoid cyst Elbow swelling Dehydration Cardiomyopathy Appetite loss Abdominal pain in male PEDRO (obstructive sleep apnea) Hypertension EtOH dependence Ankle sprain deltoid ligament Surgical History H/O bursectomy History of esophagogastroduodenoscopy (EGD) Hx of colonoscopy Social History Smoking/Tobacco Use Status: Former Tobacco Use Smoking risk assessment performed?: Yes Alcohol Intake: former Drug use: Never Substance use type: does not use Housing: apartment Do you feel safe at home: Yes Do you feel safe in your relationship?: Yes Sign Out Sign Out Data: Sign Out Comment: Pancreatic CA pt- having intractable diarrhea, low magnesium. CT pending, stool samples not collected. D/C home with neg CT > f/u w Onc, try Imod Last updated by Neto Chauhan PA at 05/14/24 15:25
[2024-05-14 13:58] LABS: Abs Immature Grans 0.04 10^3/uL (0.0-0.06); Absolute Basophil Count 0.01 10^3/uL (0.0-0.2); Absolute Eosinophil Count 0.08 10^3/uL (0.0-0.7); Absolute Lymphocyte Count 1.13 10^3/uL (1.2-3.4); Absolute Monocyte Count 0.55 10^3/uL (0.1-0.8); Absolute Neutrophil Count 4.81 10^3/uL (1.2-6.7); Basophils % 0.2 %; Eosinophils % 1.2 %; HCT 36.9 % (40.0-50.0); HGB 12.3 g/dL (13.5-17.5); Immature Grans % 0.6 %; Lymphocytes % 17.1 %; MCH 29.6 pg (27.0-33.0); MCHC 33.3 % (32.0-36.0); MCV 89 fL (80-95); MPV 8.5 fL (8.0-11.0); Monocytes % 8.3 %; Neutrophils % 72.6 %; Platelet Count 240 10^3/uL (130-400); RBC 4.16 10^6/uL (4.36-5.78); RDW 13.4 % (11.8-14.1); WBC 6.62 10^3/uL (4.4-10.8)
[2024-05-14 13:59] LABS: ESR 37 mm/hr (0-20); Lactate 0.7 mmol/L (0.6-1.4)
[2024-05-14] MEDS: HYDROmorphone 2 MG/ML SYR 1 MG IVP (14:09)
[2024-05-14] MEDS: Lactated Ringers 1,000 ML 1000 ML IV (14:10)
[2024-05-14] MEDS: Ondansetron 4 MG/2 ML VIAL IVP (14:10)
[2024-05-14 14:24] LABS: ALT 56 U/L (16-63); AST 38 U/L (15-37); Albumin 2.9 g/dL (3.4-5.0); Alkaline Phosphatase 161 U/L (46-116); Anion Gap 2.9 mmol/L (3-11); BUN 7 mg/dL (7-18); Bilirubin, Direct 0.2 mg/dL (0.0-0.2); C-Reactive Protein 2.56 mg/dL (<or=0.5); CO2 33.1 mmol/L (21.0-32.0); CREATININE 0.6 mg/dL (0.70-1.30); Calcium 9.1 mg/dL (8.5-10.1); Chloride 101 mmol/L (98-107); Estimated GFR 116.15 (mL/min/1.73m2); Glucose 91 mg/dL (74-106); Lipase 38 U/L (16-77); Magnesium 1.3 mg/dL (1.8-2.4); Potassium 3.7 mmol/L (3.5-5.1); Sodium 137 mmol/L (136-145); Total Protein 6.7 g/dL (6.4-8.2)
[2024-05-14 14:40] LABS: Procalcitonin < 0.1 ng/mL
[2024-05-14] MEDS: Omnipaque 350 MG/ML 100 ML BTL IJ (14:55)
[2024-05-14] MEDS: Normal Saline - Diluent 50 ML VIAL IJ (14:56)
--- NOTE | 2024-05-14 14:57 | DI.CT_ITS ---
Exam(s) CT ABDOMEN PELVIS W EXAM: CT ABDOMEN PELVIS W CLINICAL HISTORY: LLQ tenderness, diarrhea. TECHNIQUE: Imaging Protocol: Axial computed tomography images with coronal and sagittal reformatted images were created and reviewed CONTRAST MATERIAL: Intravenous: Omnipaque 350 Contrast volume:100 ml Oral: / no COMPARISON: CT CT ABDOMEN PELVIS W from 05/02/2024 FINDINGS: ABDOMEN and PELVIS: Lung Bases: No acute findings. Liver: Normal density. No suspicious mass. Gallbladder and biliary tract: No radiodense calculus. No biliary dilation. Pancreas: Large mass in the head of the pancreas again noted without significant change. Spleen: Stable enlargement. Kidneys: Normal size, contour and axis. No radiodense stones. No obstructive uropathy. No suspicious masses seen. Adrenal glands: No masses seen. Vasculature: Abdominal aorta non-dilated. The confluence of the splenic all can for portal veins i s narrowed by the pancreatic mass. There is also significant MAC narrowing of the superior mesenteri c artery. The superior mesenteric vein is again likely occluded. Soft tissues: Small fat containing umbilical hernia. Small fatty containing bilateral inguinal herni as. Bladder: No gross wall thickening. No calculi.No focal mass. Bowel: Duodenal stent again noted beneath the level of the head of the pancreas. The appearance is u nchanged. There is some thickening of the wall of the jejunum distal to the level of the stent which appears more prominent when compared the previous exam. The appendix is normal. There is no eviden ce of small-bowel obstruction. Colon is unremarkable. Peritoneal cavity: A small amount of ascites is now present, around the liver, right paracolic gutter and low pelvis. No focal collection. Stranding in the mesentery around the level of the pancreas. Bones: Unremarkable for age. Reproductive organs: Unremarkable. Lymph nodes: No pathologically enlarged lymph nodes. IMPRESSION:: New mild amount of ascites. Increased mesenteric inflammation. Stable appearance pancreatic head mass causing vascular narrowing. Stable appearance of duodenal anirudh nt. Wall thickening of jejunum mid distal to level of stent could represent enteritis. RADIATION DOSE DELIVERED: Total DLP DATA REPOSITORY: All CT scans at this facility are submitted to the National Radiology Data Registry (NRDR) Dose Index Registry (DIR) with the [employer] (A[employer]). RADIATION OPTIMIZATION: All CT scans at this facility use at least one of these dose optimization te chniques: automated exposure control; mA and/or kV adjustment per patient size (includes targeted exa ms where dose is matched to clinical indication); or iterative reconstruction.
[2024-05-14] MEDS: MAGNESIUM SULFATE 2 GM/50 ML BAG IVINF (15:46)
[2024-05-14 16:09] LABS: Bilirubin Negative (Negative); Blood Negative (Negative); Clarity Clear (Clear); Glucose Negative (Negative); Ketones Negative (Negative); Leukocyte Esterase Negative (Negative); Nitrite Negative (Negative); Specific Gravity 1.025 (1.005-1.025); Urobilinogen 0.2 mg/dL (Up to 0.2)
[2024-05-14] MEDS: Normal Saline 1,000 ML 1000 ML IV (16:33)
--- NOTE | 2024-05-14 17:21 | DI.VRAD_ITS ---
PROCEDURE INFORMATION: Exam: CT Abdomen And Pelvis With Contrast Exam date and time: 05/14/2024 2:54 PM Age: 54 years old Clinical indication: Other: Llq tendernesss, diarrhea TECHNIQUE: Imaging protocol: Computed tomography of the abdomen and pelvis with contrast. Radiation optimization: All CT scans at this facility use at least one of these dose optimization techniques: automated exposure control; mA and/or kV adjustment per patient size (includes targeted exams where dose is matched to clinical indication); or iterative reconstruction. Contrast material: OMNI 350; Contrast volume: 100 ml; Contrast route: INTRAVENOUS (IV); COMPARISON: CT ABDOMEN PELVIS W 05/02/2024 3:51 PM FINDINGS: Lungs: No concerning finding. Liver: Prominent left and caudate lobes, suggesting hepatic fibrosis. Gallbladder and biliary ducts: Distended gallbladder, likely with layering sludge, radiodense calculi, concerning wall thickening, pericholecystic inflammation. No biliary ductal dilatation. Pancreas: Normal. No ductal dilation. Spleen: Enlarged spleen, 15.7 cm AP. Adrenal glands: The adrenal glands are unremarkable. Kidneys and ureters: No hydronephrosis or nephrolithiasis. Stomach and bowel: A stent extending from 3rd duodenum to ligament of Treitz demonstrates debris and fluid level, probably patent; abnormal dilatation of the stomach or proximal small bowel. Thickening of the wall of the mid gastric body, probably under distension although tumor infiltration may present similarly. Mild jejunal wall thickening, may represent mild enteritis. Distal descending and proximal sigmoid colon borderline wall thickening may represent under distension or nonspecific colitis. No bowel obstruction. No evidence of pneumatosis, portal venous gas or pneumoperitoneum. No interloop fluid or intra-abdominal free fluid. Appendix: No evidence of appendicitis. Intraperitoneal space: New mild predominantly perihepatic ascites. Increasing mesenteric stranding, probably secondary to ascites. No definite soft tissue nodular stippling. Opacities in the paracolic gutters probably represent fluid rather than soft tissue nodularity. Vasculature: Click aorta cc. Large ill-defined hypoattenuating infiltrative mass centered in the mid pancreatic body with extensive vascular encasement including celiac trunk and branches, SMA, portal mesenteric venous confluence; there is probably greater than 180 degrees of abutment of the left renal vein, occlusion of the SMV, probable occlusion of splenic artery. Tumor extends to the anterior margin of the abdominal aorta at level of the renal mp. Lymph nodes: Fat stranding in the mesenteric root with multiple top-normal sized mesenteric nodes, similar to prior. Urinary bladder: Unremarkable as visualized. Reproductive: Unremarkable as visualized. Bones/joints: Unremarkable. No acute fracture. Soft tissues: See Intraperitoneal space finding. IMPRESSION: 1. Large mid pancreatic body mass with extensive vascular encasement, and duodenal stent which appears patent, similar to prior. No bowel obstruction 2. New mild ascites and increased mesenteric stranding, likely secondary to ascites, without definite carcinomatosis. Advise close clinical follow-up. 3. Suspect mild enterocolitis which may be a cause of left lower quadrant pain and diarrhea 4. Note that no additional history, prior reports or information from medical medical record is available Dictated and Authenticated by: Eleni Dunn MD. Ordering:LESLIE Duque MD
== END 2024-05-14 18:26 | disposition home or self-care (01) ==
PROVIDERS: Physician Assistant; Emergency Provider Physician Assistant; PCP Neuromusculoskeletal Medicine & OMM
DX: R19.7 Diarrhea, unspecified (principal); R10.9 Unspecified abdominal pain; C25.9 Malignant neoplasm of pancreas, unspecified; Z92.21 Personal history of antineoplastic chemotherapy
CPT/HCPCS: 36415; 80048; 80076; 83690; 84145; 85652; 87040; 96361; 96365; 96366; 96375; 99285; 74177; 81003; 83605; 83735; 85025; 86140; 99283; J1170; J2405; J3475; J3490

== ENCOUNTER 2024-05-22 00:11 | Outpatient (RCR) | payer MEDICAID, SELFPAY ==
[2024-05-22] MEDS: Normal Saline Flush 10 ML SYR IVP (12:55)
== END 2024-06-01 23:59 | disposition home or self-care (01) ==
LOC: INF 00:11
PROVIDERS: PCP Neuromusculoskeletal Medicine & OMM; Visit Provider Internal Medicine Hematology & Oncology
DX: Z45.2 Encounter for adjustment and management of vascular access device (principal)
CPT/HCPCS: 96523